=== PATIENT | female | born 1955 | race Caucasian/White ===

== ENCOUNTER 2016-08-06 13:51 | Inpatient (IN) | payer MEDICARE, MEDICAID ==
[2016-08-06] VITALS (14 sets, daily range): BP systolic 124–175; BP diastolic 59–83; PULSE 54–70; RESP 14–23; TEMP 98.5; O2SAT 97–100
[~2016-08-06] VITALS: Ht 167.6 cm; Wt 52.9 kg
[~2016-08-06 13:51] MED LIST: ASPI81TA11 PO; ATOR1TAB18 PO; CITA40TA4 PO; COLA100C3 PO; DILA100C PO; DONE10TA7 PO; FOLI1TAB4 PO; LACO100 PO; LEVE10003 PO; LISI-515 PO; METO50TA PO; PROT40TA PO; SPIRCAP INH; TOPA50TA7 PO; TRAZ100T4 PO; VENTAER INH; VITA10006 PO
[2016-08-06] MEDS ORDERED: SODIUM CHLOR 0.9% 1000 ML INJ 1,000 ML IV ONE (14:00)
[2016-08-06] MEDS ORDERED: LORazepam 2 MG/ML VIAL IV PUSH ONE (14:00)
[2016-08-06] MEDS ORDERED: levETIRAcetam INJ 1,000 MG in SODIUM CHLORIDE 0.9% INJ 100 ML IV ONE (14:00)
--- NOTE | 2016-08-06 14:15 | RADRPT ---
EXAM DATE/TIME: 08/06/2016 14:02 [facility] COMPARISON: CT BRAIN W/O CONTRAST, June 23, 2016, 10:27. INDICATIONS : Left side flacid, seizure RADIATION DOSE: 56.35 CTDIvol (mGy) This report was called to Dr. Colbert at 1413. MEDICAL HISTORY : Cardiovascular disease. Cerebrovascular disease. Hypertension. SURGICAL HISTORY : Tubal ligation. ENCOUNTER: Initial ACUITY: 1 day PAIN SCALE: Non-responsive LOCATION: cranial TECHNIQUE: Multiple contiguous axial images were obtained of the head. Using automated exposure control and adj ustment of the mA and/or kV according to patient size, radiation dose was kept as low as reasonably a chievable to obtain optimal diagnostic quality images. FINDINGS: CEREBRUM: The ventricles are normal for age. No evidence of midline shift, mass lesion, hemorrhage or acute in farction. No extra-axial fluid collections are seen. POSTERIOR FOSSA: The cerebellum and brainstem are intact. The 4th ventricle is midline. The cerebellopontine angle i s unremarkable. EXTRACRANIAL: The visualized portion of the orbits is intact. SKULL: The calvaria is intact. No evidence of skull fracture. CONCLUSION: No acute disease. Jerrell Jacome MD FACR on August 06, 2016 at 14:12 Board Certified Radiologist. This report was verified electronically.
[2016-08-06 14:16] LABS: I-STAT POTASSIUM 4.5 MMOL/L (3.5-4.9); I-STAT SODIUM 129 MMOL/L (138-146)
[2016-08-06 14:17] LABS: AUTOMATED NEUTROPHIL # 2.7 TH/MM3 (1.8-7.7); BASOPHIL # 0.1 TH/MM3 (0-0.2); BASOPHIL % 1.2 % (0.0-2.0); EOSINOPHIL # 0.1 TH/MM3 (0-0.4); EOSINOPHIL % 1.2 % (0.0-4.0); HEMATOCRIT 38.5 % (35.0-46.0); HEMO FLAGS DIFF FINAL; LYMPH % 23.2 % (9.0-44.0); MEAN CELL VOLUME 91.4 FL (80.0-100.0); MEAN CORPUSCULAR HGB CONC 33.9 % (32.0-36.0); MONO % 10.8 % (0.0-8.0); NEUT % 63.6 % (16.0-70.0); PLATELET COUNT 179 TH/MM3 (150-450); RED BLOOD COUNT 4.22 MIL/MM3 (4.00-5.30); RED CELL DISTRIBUTION WIDTH 13.2 % (11.6-17.2); WHITE BLOOD COUNT 4.3 TH/MM3 (4.0-11.0)
[2016-08-06 14:27] LABS: APTT (PATIENT) 26.5 SEC (24.3-30.1); INTERNATIONAL NORMALIZED RATIO 1.1 RATIO; PROTHROMBIN TIME - PATIENT 11.7 SEC (9.8-11.6)
[2016-08-06] MEDS ORDERED: levETIRAcetam 1000 MG INJ 100 ML IV ONE (14:30)
--- NOTE | 2016-08-06 14:40 | PD ---
HPI Chief Complaint: Stroke Alert Time Seen by Provider: 14:00 Travel History International Travel<30 days: No Contact w/Intl Traveler<30days: No Traveled to known affect area: No History of Present Illness HPI This 60 year-old woman presents to the emergency department brought in by EMS as a stroke alert. EMS was called at [facility], where the patient resides , for seizure-like activity. She was given 2 mg of Ativan parenterally. Following the seizure, patient initially was obtunded, then gradually responsive and they noted that the patient was not moving her left side. Stroke alert was called. Patient was last seen normal prior to the seizure at 1 :15 PM. Review of records shows that she has a history of major depression, alcohol use , TMJ, history of CVA with short term memory loss, and seizures for which she takes Keppra and phenytoin and Vimpat. PFSH Past Medical History Narrative Medical Seizures, on Keppra, phenytoin, Vimpat Major depression Alcohol use TMJ History of CVA with short term memory loss Hx Anticoagulant Therapy: Yes (325MG ASA DAILY) Arthritis: Yes Asthma: No Autoimmune Disease: No Bipolar Disorder: Yes Anxiety: No Depression: Yes Heart Rhythm Problems: No Cancer: No Cardiovascular Problems: Yes (HTN ) High Cholesterol: Yes Chemotherapy: No Chest Pain: Yes Congestive Heart Failure: No COPD: No Cerebrovascular Accident: Yes Diabetes: No Diminished Hearing: Yes Endocrine: No Gastrointestinal Disorders: Yes (IBS) GERD: No Glaucoma: No Genitourinary: No Headaches: Yes (once a week) Hepatitis: No Hiatal Hernia: No Hypertension: Yes Immune Disorder: No Implanted Vascular Access Dvce: No Kidney Stones: No Musculoskeletal: Yes Neurologic: Yes (SHORT TERM MEMORY LOSS ) Psychiatric: Yes Reproductive: No Respiratory: Yes Migraines: No Myocardial Infarction: No Radiation Therapy: No Renal Failure: No Schizophrenia: Yes (SCHIZOAFFECTIVE) Seizures: Yes (EPILEPSY) Sickle Cell Disease: No Sleep Apnea: No Thyroid Disease: No Ulcer: No PNEUMOCCOCAL Vaccine (Year): 2 Menopausal: Yes : 0 Tubal Ligation: Yes Past Surgical History Abdominal Surgery: No AICD: No Appendectomy: No Arteriovenous Shunt: No Cardiac Surgery: No Cholecystectomy: No Ear Surgery: Yes (bilateral) Endocrine Surgery: No Eye Surgery: No Genitourinary Surgery: No Gynecologic Surgery: Yes (tubal ligation) Hysterectomy: No Insulin Pump: No Joint Replacement: No Neurologic Surgery: No Oral Surgery: Yes (Jaw/ TMJ) Pacemaker: No Thoracic Surgery: No Other Surgery: Yes (see below) Social History Alcohol Use: No (ETOH ABUSE) Tobacco Use: Yes (1 ppd) Substance Use: No (HX CRACK COCAINE USE ) Allergies-Medications (Allergen,Severity, Reaction): Coded Allergies: No Known Allergies (Verified , 08/06/16) Reported Meds & Prescriptions Reported Meds & Active Scripts Active Topamax (Topiramate) 50 Mg Tab 50 Mg PO BID Reported Symbicort Inh (Budesonide/Formoterol Fumarate) 160-4.5 Mcg/Act Aero 2 Puff INH BID Phenytoin Extended 200 Mg Cap 200 Mg PO BID Folate (Folic Acid) 1 Mg Tab 1 Mg PO DAILY Vitamin E 1,000 Unit Cap 1,000 Units PO DAILY Vimpat (Lacosamide) 100 Mg Tab 100 Mg PO TID Ventolin Hfa 18 GM Inh (Albuterol Sulfate) 90 Mcg/Act Aer 2 Puff INH QID Trazodone (Trazodone HCl) 100 Mg Tab 200 Mg PO HS Spiriva Handihaler (Tiotropium Inh) 18 Mcg Cap 1 Cap INH DAILY DO NOT SWALLOW CAPS Protonix (Pantoprazole Sodium) 40 Mg Tab 40 Mg PO DAILY Metoprolol Tartrate 50 Mg Tab 50 Mg PO BID Lisinopril 20 Mg Tab 20 Mg PO DAILY Levetiracetam 1,000 Mg Tab 1,000 Mg PO TID Donepezil 10 Mg Tab 10 Mg PO BID Colace (Docusate Sodium) 100 Mg Cap 100 Mg PO BID Citalopram (Citalopram Hydrobromide) 40 Mg Tab 40 Mg PO DAILY Atorvastatin (Atorvastatin Calcium) 80 Mg Tab 80 Mg PO HS Aspirin EC (Aspirin) 81 Mg Tabdr 81 Mg PO DAILY Review of Systems Except as stated in HPI: all other systems reviewed are Neg Physical Exam Narrative GENERAL: 60 year-old woman, unresponsive. SKIN: Warm and dry. HEAD: Atraumatic. Normocephalic. EYES: Pupils equal and round. Patient has right beating irregular eye movements. ENT: No nasal bleeding or discharge. Mucous membranes pink and moist. NECK: Trachea midline. No JVD. CARDIOVASCULAR: Regular rate and rhythm. No murmur appreciated. RESPIRATORY: No accessory muscle use. Clear to auscultation. Breath sounds equal bilaterally. GASTROINTESTINAL: Abdomen soft, non-tender, nondistended. Hepatic and splenic margins not palpable. MUSCULOSKELETAL: No obvious deformities. No edema. NEUROLOGICAL: Eyes closed. No response to voice. Is somewhat purposeful the right upper extremity which are all from pain in the right lower extremity. Left leg we will pull away some the pain. Left upper extremity is flaccid. She appears to have sensation in the left upper extremity grimaces with noxious stimuli to the left upper extremity. Data Data Last Documented VS Vital Signs Date Time Temp Pulse Resp B/P Pulse Ox O2 Delivery O2 Flow Rate FiO2 08/06/16 14:40 61 18 147/64 100 Non-Rebreather 08/06/16 13:54 98.5 08/06/16 13:50 12.00 100 Orders Activity Bed Rest (08/06/16 ) Electrocardiogram (08/06/16 ) I-Stat Creatinine (08/06/16 14:00) I-Stat Profile (08/06/16 14:00) Prothrombin Time / Inr (Pt) (08/06/16 14:00) Act Partial Throm Time (Ptt) (08/06/16 14:00) Complete Blood Count With Diff (08/06/16 14:00) Fibrinogen (08/06/16 14:00) Creatine Kinase (Cpk) (08/06/16 14:00) Troponin I (08/06/16 14:00) Ua Includes Microscopic (08/06/16 14:00) Drug Screen, Random Urine (08/06/16 14:00) Type And Screen (08/06/16 14:00) Ct Brain W/O Iv Contrast(Rout) (08/06/16 ) Beta Hcg (Quant/Titer) (08/06/16 14:00) Consult Neurology (08/06/16 ) Blood Glucose (08/06/16 14:00) Ecg Monitoring (08/06/16 14:00) Neuro Checks Q2HX12,Q4H (08/06/16 14:00) Nursing Bedside Swallow Assess .ONCE (08/06/16 14:00) Iv Access Insert/Monitor (08/06/16 14:00) NPO (08/06/16 14:00) Oximetry (08/06/16 14:00) Oxygen Administration (08/06/16 14:00) Sodium Chlor 0.9% 1000 Ml Inj (Ns 1000 M (08/06/16 14:00) Resp Oxygen Arnaldo C Titrat 1-4 L (08/06/16 14:00) Cath For Specimen (08/06/16 14:00) Lorazepam Inj (Ativan Inj) (08/06/16 14:00) (Hub Use Only)Inp Phy Cons/Ref (08/06/16 ) Levetiracetam 1000 Mg Inj (Keppra 1000 M (08/06/16 14:30) Phenytoin (Dilantin) (08/06/16 14:25) Portable Eeg (08/06/16 ) Mri Brain W/O Contrast (08/06/16 ) Admit To Inpatient (08/06/16 ) Vital Signs (Adult) Q4H (08/06/16 16:03) Neuro Checks Q4H (08/06/16 16:03) Activity Oob With Assistance (08/06/16 16:03) Diet Npo (08/06/16 Dinner) Sodium Chlor 0.9% 1000 Ml Inj (Ns 1000 M (08/06/16 16:03) Sodium Chloride 0.9% Flush (Ns Flush) (08/06/16 16:15) Sodium Chloride 0.9% Flush (Ns Flush) (08/06/16 21:00) Acetaminophen (Tylenol) (08/06/16 16:15) Ondansetron Inj (Zofran Inj) (08/06/16 16:15) Bisacodyl Supp (Dulcolax Supp) (08/06/16 16:15) Magnesium Hydroxide Liq (Milk Of Magnesi (08/06/16 16:15) Basic Metabolic Panel (Bmp) (08/07/16 06:00) Complete Blood Count With Diff (08/07/16 06:00) Resp Oxygen Arnaldo C Titrat 1-4 L (08/06/16 ) Pt Request For Service (08/06/16 16:03) Ot Request For Service (08/06/16 16:03) St Request For Service (08/06/16 16:03) Naloxone Inj (Narcan Inj) (08/06/16 16:15) Inpatient Certification (08/06/16 ) Aspirin Ec (Ecotrin Ec) (08/07/16 09:00) Atorvastatin (Lipitor) (08/06/16 21:00) Budeson-Formot 160-4.5 Mg Inh (Symbicort (08/06/16 21:00) Citalopram (Celexa) (08/07/16 09:00) Donepezil (Aricept) (08/06/16 21:00) Folic Acid (Folate) (08/07/16 09:00) Lacosamide (Vimpat) (08/06/16 18:00) Levetiracetam (Keppra) (08/06/16 18:00) Lisinopril (Prinivil) (08/07/16 09:00) Metoprolol Tartrate (Lopressor) (08/06/16 21:00) Pantoprazole (Protonix) (08/07/16 09:00) Phenytoin (Dilantin) (08/06/16 21:00) Topiramate (Topamax) (08/06/16 21:00) Trazodone (Desyrel) (08/06/16 21:00) Admit Order (Ed Use Only) (08/06/16 ) Labs Laboratory Tests Test 08/06/16 08/06/16 14:00 14:20 White Blood Count 4.3 TH/MM3 Red Blood Count 4.22 MIL/MM3 Hemoglobin 13.1 GM/DL Bedside Hemoglobin 13.3 G/DL Hematocrit 38.5 % Bedside Hematocrit 39.0 % Mean Corpuscular Volume 91.4 FL Mean Corpuscular Hemoglobin 31.0 PG Mean Corpuscular Hemoglobin 33.9 % Concent Red Cell Distribution Width 13.2 % Platelet Count 179 TH/MM3 Mean Platelet Volume 8.0 FL Neutrophils (%) (Auto) 63.6 % Lymphocytes (%) (Auto) 23.2 % Monocytes (%) (Auto) 10.8 % Eosinophils (%) (Auto) 1.2 % Basophils (%) (Auto) 1.2 % Neutrophils # (Auto) 2.7 TH/MM3 Lymphocytes # (Auto) 1.0 TH/MM3 Monocytes # (Auto) 0.5 TH/MM3 Eosinophils # (Auto) 0.1 TH/MM3 Basophils # (Auto) 0.1 TH/MM3 CBC Comment DIFF FINAL Differential Comment Prothrombin Time 11.7 SEC Prothromb Time International 1.1 RATIO Ratio Activated Partial 26.5 SEC Thromboplast Time Fibrinogen 159 mg/dL Bedside Sodium 129 MMOL/L Bedside Potassium 4.5 MMOL/L Bedside Chloride 94 MMOL/L Bedside Blood Urea Nitrogen 9 MG/DL Bedside Creatinine 0.8 MG/DL Bedside Glucose 97 MG/DL Total Creatine Kinase 121 U/L Troponin I LESS THAN 0.02 NG/ML Human Chorionic Gonadotropin, 2 MIU/ML Quant Phenytoin (Dilantin) Level 16.8 MCG/ML Blood Type A POSITIVE Antibody Screen NEGATIVE Urine Color YELLOW Urine Turbidity CLEAR Urine pH 6.5 Urine Specific [place] 1.010 Urine Protein NEG mg/dL Urine Glucose (UA) NEG mg/dL Urine Ketones NEG mg/dL Urine Occult Blood NEG Urine Nitrite NEG Urine Bilirubin NEG Urine Urobilinogen LESS THAN 2.0 MG/DL Urine Leukocyte Esterase NEG Urine RBC LESS THAN 1 /hpf Urine WBC LESS THAN 1 /hpf Microscopic Urinalysis Comment Urine Opiates Screen NEG Urine Barbiturates Screen NEG Urine Amphetamines Screen NEG Urine Benzodiazepines Screen NEG Urine Cocaine Screen POS Urine Cannabinoids Screen NEG MDM Medical Screen Exam Complete: Yes Emergency Medical Condition: Yes Differential Diagnosis Seizure, CVA, bleed, tumor, adverse effect of illicit drugs, other Narrative Course Medical decision making INITIAL: This 60 year-old woman presents emergency department with appears to be status epilepticus. She still has intermittent seizure-like eye movements, but no clear convulsions. She is flaccid on the left side. Suspect status epilepticus. Patient was called as a stroke or base of his left sided weakness. Spoke with Dr. nicholas oliveira. I don't think she is a candidate for TPA. folds in agreement. We'll give an extra dose of Keppra, continue monitoring. EEG. Admission to the hospital. Stroke Alert NIHSS NIH Stroke Scale Result: 16 NIHSS Time Completed: 14:00 Procedures Interpretation(s) LABS: CBC unremarkable. POC unremarkable Troponin negative HCG negative Coags unremarkable UA negative Urine drug screen positive for cocaine Mayito More MD Aug 06, 2016 14:40
[2016-08-06 14:43] LABS: BETA HCG QUANT 2 MIU/ML (0-5); CREATINE KINASE 121 U/L (26-192)
[2016-08-06] MEDS ORDERED: PHEN200C3 PO (15:27)
[2016-08-06] MEDS ORDERED: SYMB160A INH (15:30)
--- NOTE | 2016-08-06 15:34 | MB ---
cc: FIDEL MAGANA M.D. DATE OF CONSULTATION: 08/06/2016 DATE OF : 1955 REASON FOR CONSULTATION Seizure, questionable stroke. HISTORY OF PRESENT ILLNESS The patient came in as a Stroke Alert and noted to be seizing upon arrival, was given two of Ativan I believe in the field and two in the ED, total of four, on the non-rebreather. Currently still having some seizure-like activity with a history of epilepsy, schizoaffective disorder, stroke with some visual right-sided weakness, hypertension, hyperlipidemia and COPD. The patient per old chart should be on Dilantin as well as Keppra. Labs are still pending. The patient resides at [facility] and was noted there to have possible seizure. They noted that she was not moving her left side and that is white a Stroke Alert was called. It looks more like a Lv's paralysis than a stroke. PAST MEDICAL HISTORY As stated. MEDICATIONS Home medicines are noted per chart: 1. Topamax 50 mg b.i.d. 2. Dilantin 100 mg caps, 200 mg daily. 3. Vimpat, looks like 100 mg three times a day. 4. Aricept. 5. Citalopram. 6. Atorvastatin. 7. Aspirin. 8. Metoprolol. 9. Lisinopril. 10.Keppra 1000 mg three times a day. PHYSICAL EXAMINATION VITAL SIGNS: Temperature 98.5, pulse 61, respiratory rate 18, blood pressure 147/64. Satting 100% on non-rebreather. NEUROLOGIC: She is not alert. Pupils are reactive. She does have some nystagmus. No gaze deviation. Has her neck arched. Motor-dye she withdraws right arm, right leg, left leg, not doing as much with the left arm, cannot get her to do anything at this point. Gait and cerebellar cannot be assessed. LABORATORY Labs are reviewed. CBC is unremarkable. Coag panel, fibrinogen 159, PT 11.7. Chemistries, sodium 129, glucose 97. IMAGING Head CT: No acute disease noted. IMPRESSION Likely breakthrough seizure in this 60-year-old woman with a history of stroke in the past, history of epilepsy, hypertension, hyperlipidemia and COPD. RECOMMENDATIONS Recommend continuing her antiepileptics from the detention. The list needs to be addressed carefully to make sure that she is in fact getting all her medication. I would also order levels of Keppra and Dilantin if she is truly on Vimpat as well as topiramate. Those levels can be ordered but they will take some time to come back. Will get an EEG. Maintain seizure precautions. I think given that there is some confusion from the detention MRI of the brain should be addressed and performed to make sure there is not a small infarct contributing to the breakthrough seizures. If there is, then further workup will be done. At this point she is not a TPA candidate. I believe that these are seizures, not causing some paralysis. Further recommendations to be made. MD OSMEL Bobo/RODRIGO /2:44 PM /3:17 PM
[2016-08-06] MEDS ORDERED: NALOXONE HCL 0.4 MG/ML AMP IV PRN (16:15)
[2016-08-06] MEDS ORDERED: ONDANSETRON HCL 4 MG/2 ML VIAL IVP PRN (16:15)
[2016-08-06] MEDS ORDERED: SODIUM CHLORIDE 0.9% FLUSH 5 ML FLUSH FLUSH PRN (16:15)
[2016-08-06] MEDS ORDERED: MAGNESIUM HYDROXIDE SUSP 30 ML CUP PO PRN (16:15)
[2016-08-06] MEDS ORDERED: BISACODYL 10 MG SUPP PR PRN (16:15)
[2016-08-06] MEDS ORDERED: ACETAMINOPHEN 325 MG TAB PO PRN (16:15)
[2016-08-06 16:19] LABS: BLOOD, URINE NEG (NEG); GLUCOSE,URINE NEG (NEG); KETONE, URINE NEG (NEG); NITRITE,URINE NEG (NEG); PH, URINE 6.5 (5.0-8.5); URINE COLOR YELLOW (YELLW/STRAW)
[2016-08-06 16:25] LABS: AMPHETAMINE, URINE NEG (NEG); BARBITURATES, URINE NEG (NEG); COCAINE, URINE POS (NEG)
[2016-08-06] MEDS: levETIRAcetam 500 MG TAB PO SCH (18:00)
[2016-08-06] MEDS: LACOSAMIDE 100 MG TAB PO SCH (18:00)
[2016-08-06] MEDS: SODIUM CHLOR 0.9% 1000 ML INJ 1,000 ML IV SCH (18:27)
--- NOTE | 2016-08-06 20:44 | RADRPT ---
EXAM DATE/TIME: 08/06/2016 19:38 [facility] COMPARISON: No previous studies available for comparison. INDICATIONS : Seizures. Left side flaccid. MEDICAL HISTORY : Stroke Seizures. Chronic obstructive pulmonary disease. SURGICAL HISTORY : Tubal ligation. TMJ surgery. ENCOUNTER: Initial ACUITY: 1 day PAIN SCORE: Nonresponsive. LOCATION: head TECHNIQUE: Multiplanar, multisequence MRI of the brain was performed without contrast. FINDINGS: CEREBRUM: The ventricles are normal for age. No evidence of midline shift, mass lesion, hemorrhage or acute in farction. No extraaxial fluid collections are seen. The pituitary gland and suprasellar cistern are normal in configuration. WHITE MATTER: No significant signal abnormalities are seen in the white matter. POSTERIOR FOSSA: The cerebellum and brainstem are intact. The 4th ventricle is midline. The cerebellopontine angle is unremarkable. The cerebellar tonsils are normal in position. DIFFUSION IMAGING: No focal areas of restricted diffusion are seen. No evidence of acute infarction. EXTRACRANIAL: The visualized portions of the orbits and paranasal sinuses are unremarkable. CONCLUSION: 1. No acute findings. No significant change since 2014. No recent infarct. Ventricular size relativel y stable. Prasanna Cooper MD on August 06, 2016 at 20:39 Board Certified Radiologist. This report was verified electronically.
[2016-08-06] MEDS: SODIUM CHLORIDE 0.9% FLUSH 5 ML FLUSH FLUSH SCH (21:01)
[2016-08-06] MEDS: ATORVASTATIN 80 MG TAB PO SCH (21:10)
[2016-08-06] MEDS: TOPIRAMATE 25 MG TAB PO SCH (21:10)
[2016-08-06] MEDS: METOPROLOL TARTRATE 50 MG TAB PO SCH (21:10)
[2016-08-06] MEDS: PHENYTOIN SODIUM 100 MG CAP PO SCH (21:10)
[2016-08-06] MEDS: traZODone HCL 100 MG TAB PO SCH (21:58)
[2016-08-06] MEDS: DONEPEZIL HCL 5 MG TAB PO SCH (21:58)
[2016-08-06] MEDS: BUDESONIDE-FORMOTEROL 160/4.5 MCG INHALER INH SCH (21:58)
[2016-08-06] MEDS ORDERED: RESP: ALBUTEROL 2.5 MG/IPRATROPIUM 0.5 MG NEB (PRN) NEB (22:45)
[2016-08-07] VITALS (11 sets, daily range): BP systolic 108–163; BP diastolic 55–89; PULSE 52–86; RESP 16–20; TEMP 97.5–97.8; O2SAT 95–99
[2016-08-07] MEDS: SODIUM CHLOR 0.9% 1000 ML INJ 1,000 ML IV SCH ×3 (02:41→22:22)
[2016-08-07 04:57] LABS: AUTOMATED NEUTROPHIL # 5.3 TH/MM3 (1.8-7.7); BASOPHIL # 0.1 TH/MM3 (0-0.2); BASOPHIL % 0.7 % (0.0-2.0); EOSINOPHIL # 0.1 TH/MM3 (0-0.4); HEMATOCRIT 43.3 % (35.0-46.0); HEMO FLAGS DIFF FINAL; LYMPHOCYTE # 1.1 TH/MM3 (1.0-4.8); MEAN CELL VOLUME 91.8 FL (80.0-100.0); MEAN CORPUSCULAR HEMOGLOBIN 31.6 PG (27.0-34.0); MEAN CORPUSCULAR HGB CONC 34.5 % (32.0-36.0); MONO % 10.4 % (0.0-8.0); NEUT % 72.9 % (16.0-70.0); PLATELET COUNT 167 TH/MM3 (150-450); RED BLOOD COUNT 4.72 MIL/MM3 (4.00-5.30); RED CELL DISTRIBUTION WIDTH 13.5 % (11.6-17.2); WHITE BLOOD COUNT 7.3 TH/MM3 (4.0-11.0)
--- NOTE | 2016-08-07 05:12 | HHI.HP ---
[facility] No Primary Care Physician Admission Diagnosis status epilepticus Diagnoses: (1) Recurrent seizures (2) Hyponatremia (3) HTN (hypertension) (4) Hyperlipidemia (5) COPD (chronic obstructive pulmonary disease) Chief Complaint: Breakthrough seizures Travel History International Travel<30 Days: No Contact w/Intl Traveler <30 Da: No Traveled to Known Affected Are: No History of Present Illness Ms. Hernandez is a 60 -year-old female with a past medical history of seizure disorder, hypertension, myocardial infarction, hyperlipidemia, hypertension, COPD, irritable bowel syndrome, arthritis, schizoaffective bipolar disorder, tobacco abuse, alcohol abuse, and history of crack cocaine abuse who presented to the emergency room on 08/06/2016 from [facility] for evaluation of seizure-like activity. Following the seizure, the patient was unable to move her left side and a stroke alert was called. She has been seen and evaluated by Dr. Zamora who opines that the paralysis appears more like a Todds paralysis resulting from seizure activity more than a CVA. Urine drug screen positive for cocaine. Dilantin level was therapeutic at 16.8. The patient is seen in ED holding. She reports that she came to the hospital because of seizure activity but cannot recall much else. She reports taking all of her medications at the [facility] where she lives. She denies cocaine use despite positive urine drug screen. . Review of Systems Constitutional: DENIES: Fever Respiratory: DENIES: Cough, Shortness of breath Cardiovascular: DENIES: Chest pain, Palpitations Gastrointestinal: DENIES: Abdominal pain, Black stools, Bloody stools, Diarrhea , Nausea, Vomiting Genitourinary: DENIES: Hematuria, Dysuria Neurologic: COMPLAINS OF: Seizures Past Family Social History Past Medical History Seizure disorder Hypertension Myocardial infarction Hyperlipidemia Hypertension COPD Irritable bowel syndrome Arthritis Schizoaffective bipolar disorder Tobacco abuse Alcohol abuse History of crack cocaine abuse . Past Surgical History Bilateral ear surgery Tubal ligation TMJ surgery . Reported Medications Reported Meds & Active Scripts Active Topamax (Topiramate) 50 Mg Tab 50 Mg PO BID Reported Symbicort Inh (Budesonide/Formoterol Fumarate) 160-4.5 Mcg/Act Aero 2 Puff INH BID Phenytoin Extended 200 Mg Cap 200 Mg PO BID Folate (Folic Acid) 1 Mg Tab 1 Mg PO DAILY Vitamin E 1,000 Unit Cap 1,000 Units PO DAILY Vimpat (Lacosamide) 100 Mg Tab 100 Mg PO TID Ventolin Hfa 18 GM Inh (Albuterol Sulfate) 90 Mcg/Act Aer 2 Puff INH QID Trazodone (Trazodone HCl) 100 Mg Tab 200 Mg PO HS Spiriva Handihaler (Tiotropium Inh) 18 Mcg Cap 1 Cap INH DAILY DO NOT SWALLOW CAPS Protonix (Pantoprazole Sodium) 40 Mg Tab 40 Mg PO DAILY Metoprolol Tartrate 50 Mg Tab 50 Mg PO BID Lisinopril 20 Mg Tab 20 Mg PO DAILY Levetiracetam 1,000 Mg Tab 1,000 Mg PO TID Donepezil 10 Mg Tab 10 Mg PO BID Colace (Docusate Sodium) 100 Mg Cap 100 Mg PO BID Citalopram (Citalopram Hydrobromide) 40 Mg Tab 40 Mg PO DAILY Atorvastatin (Atorvastatin Calcium) 80 Mg Tab 80 Mg PO HS Aspirin EC (Aspirin) 81 Mg Tabdr 81 Mg PO DAILY . Allergies: Coded Allergies: No Known Allergies (Verified , 08/06/16) Active Ordered Medications Current Medications Sodium Chloride (NS 1000 ml Inj) 1,000 ml @ 70 mls/hr [id number] ONCE IV Last administered on 08/06/16 15:32; Start 08/06/16 at 14:00; Stop 08/07/16 at 04:17; Status DC Lorazepam 2 mg 2 mg ONCE ONCE IV PUSH Last administered on 08/06/16 14:42; Start 08/06/16 at 14:00; Stop 08/06/16 at 14:02; Status DC Levetriacetam 1000 mg/Sodium Chloride 110 ml @ 420 mls/hr BOLUS ONCE IV ; Start 08/06/16 at 14:00; Stop 08/06/16 at 14:15; Status Cancel Levetriacetam 100 ml @ 420 mls/hr BOLUS ONCE IV Last administered on 15:32; Start 08/06/16 at 14:30; Stop 08/06/16 at 14:44; Status DC Sodium Chloride (NS 1000 ml Inj) 1,000 ml @ 100 mls/hr Q10H IV Last administered on 08/07/16 02:41; Start 08/06/16 at 16:03 IV Flush (NS Flush) 2 ml UNSCH PRN FLUSH FLUSH AFTER USING IV ACCESS; Start 08/06/16 at 16:15 IV Flush (NS Flush) 2 ml BID FLUSH Last administered on 08/06/16 21:01; Start 08/06/16 at 21:00 Acetaminophen (Tylenol) 650 mg Q4H PRN PO Pain 1-4, Fever, headache; Start 08/06 at 16:15 Ondansetron HCl (Zofran Inj) 4 mg Q6H PRN IVP NAUSEA OR VOMITING; Start at 16:15 Bisacodyl (Dulcolax Supp) 10 mg DAILY PRN NC CONSTIPATION; Start 08/06/16 at 16: 15 Magnesium Hydroxide (Milk Of Magndanielle Liq) 30 ml Q12H PRN PO CONSTIPATION; Start 08/06/16 at 16:15 Naloxone HCl (Narcan Inj) 0.4 mg UNSCH PRN IV SEE LABEL COMMENTS; Start at 16:15 Aspirin (Ecotrin Ec) 81 mg DAILY PO ; Start 08/07/16 at 09:00 Atorvastatin Calcium (Lipitor) 80 mg HS PO Last administered on 08/06/16 21:10 ; Start 08/06/16 at 21:00 Budesonide/ Formoterol Fumarate (Symbicort 160-4.5 Inh) 2 puff BID INH Last administered on 08/06/16 21:58; Start 08/06/16 at 21:00 Citalopram Hydrobromide (CeleXA) 40 mg DAILY PO ; Start 08/07/16 at 09:00 Donepezil HCl (Aricept) 10 mg BID PO Last administered on 08/06/16 21:58; Start 08/06/16 at 21:00 Folic Acid (Folate) 1 mg DAILY PO ; Start 08/07/16 at 09:00 Lacosamide (Vimpat) 100 mg TID PO ; Start 08/06/16 at 18:00 Levetriacetam (Keppra) 1,000 mg TID PO ; Start 08/06/16 at 18:00 Lisinopril (Prinivil) 20 mg DAILY PO ; Start 08/07/16 at 09:00 Metoprolol Tartrate (Lopressor) 50 mg BID PO Last administered on 08/06/16 21: 10; Start 08/06/16 at 21:00 Pantoprazole Sodium (Protonix) 40 mg DAILY PO ; Start 08/07/16 at 09:00 Phenytoin (Dilantin) 200 mg BID PO Last administered on 08/06/16 21:10; Start 08/06/16 at 21:00 Topiramate (Topamax) 50 mg BID PO Last administered on 08/06/16 21:10; Start at 21:00 Trazodone HCl (Desyrel) 200 mg HS PO Last administered on 08/06/16 21:58; Start 08/06/16 at 21:00 Non-Formulary Medication 1,000 units DAILY PO Tardive Dyskinesia; Start 08/07/16 at 09:00; Status UNV Albuterol/ Ipratropium (Duoneb Neb) 1 ampule Q4HR NEB PRN NEB shortness of breath/wheezing; Start 08/06/16 at 22:45 . Family History Mother with breast CA, CVA . Social History Tobacco: Smokes 1 pack per day Alcohol: History of alcoholism, quit drinking 5 years ago Illicit Drugs: denies crack cocaine use but urine drug tested positive Physical Exam Vital Signs Vital Signs Date Time Temp Pulse Resp B/P Pulse Ox O2 Delivery O2 Flow Rate FiO2 08/07/16 00:00 52 17 133/68 98 Venturi Mask 6 40 08/06/16 23:00 98 Venturi Mask 6.00 40 08/06/16 22:00 58 17 147/72 97 Venturi Mask 6 40 08/06/16 21:13 70 20 175/81 99 Venturi Mask 6 40 08/06/16 20:00 57 17 173/78 98 Venturi Mask 6 40 08/06/16 19:00 65 20 153/67 99 Venturi Mask 6 40 08/06/16 18:00 54 15 148/67 100 Venturi Mask 40 08/06/16 17:00 54 18 137/65 100 Non-Rebreather 15.00 100 08/06/16 16:00 56 14 124/59 100 Non-Rebreather 15.00 100 08/06/16 15:00 62 16 148/65 100 Non-Rebreather 15.00 100 08/06/16 14:40 61 18 147/64 100 Non-Rebreather 08/06/16 14:38 100 Non-Rebreather 15.00 08/06/16 14:20 100 Non-Rebreather 08/06/16 14:05 69 23 156/83 100 Room Air 08/06/16 13:54 Non-Rebreather 08/06/16 13:54 98.5 66 18 173/81 100 08/06/16 13:54 98.5 66 18 173/81 100 Non-Rebreather 08/06/16 13:50 98 12.00 100 Physical Exam GENERAL: This is a female patient who appears older than her stated age, in no apparent distress. SKIN: No rashes, ecchymoses or lesions. Cool and dry. HEAD: Atraumatic. Normocephalic. EYES: No scleral icterus. No injection or drainage. ENT: Nose without bleeding, purulent drainage. NECK: Trachea midline. No JVD or lymphadenopathy. CARDIOVASCULAR: Regular rate and rhythm without murmurs, gallops, or rubs. RESPIRATORY: Clear to auscultation. Breath sounds equal bilaterally. No wheezes , rales, or rhonchi. GASTROINTESTINAL: Abdomen soft, non-tender, nondistended. No guarding. MUSCULOSKELETAL: Extremities without clubbing, cyanosis, or edema. No calf tenderness. NEUROLOGICAL: Sleeping but easily awakens. Motor and sensory grossly within normal limits. Normal speech. No focal deficits noted. . Laboratory Laboratory Tests Test 08/06/16 08/06/16 08/07/16 14:00 14:20 04:10 White Blood Count 4.3 7.3 Red Blood Count 4.22 4.72 Hemoglobin 13.1 14.9 Bedside Hemoglobin 13.3 Hematocrit 38.5 43.3 Bedside Hematocrit 39.0 Mean Corpuscular Volume 91.4 91.8 Mean Corpuscular Hemoglobin 31.0 31.6 Mean Corpuscular Hemoglobin 33.9 34.5 Concent Red Cell Distribution Width 13.2 13.5 Platelet Count 179 167 Mean Platelet Volume 8.0 8.3 Neutrophils (%) (Auto) 63.6 72.9 Lymphocytes (%) (Auto) 23.2 15.0 Monocytes (%) (Auto) 10.8 10.4 Eosinophils (%) (Auto) 1.2 1.0 Basophils (%) (Auto) 1.2 0.7 Neutrophils # (Auto) 2.7 5.3 Lymphocytes # (Auto) 1.0 1.1 Monocytes # (Auto) 0.5 0.8 Eosinophils # (Auto) 0.1 0.1 Basophils # (Auto) 0.1 0.1 CBC Comment DIFF FINAL DIFF FINAL Differential Comment Prothrombin Time 11.7 Prothromb Time International 1.1 Ratio Activated Partial 26.5 Thromboplast Time Fibrinogen 159 Bedside Sodium 129 Bedside Potassium 4.5 Bedside Chloride 94 Bedside Blood Urea Nitrogen 9 Bedside Creatinine 0.8 Bedside Glucose 97 Total Creatine Kinase 121 Troponin I LESS THAN 0.02 Human Chorionic Gonadotropin, 2 Quant Phenytoin (Dilantin) Level 16.8 Blood Type A POSITIVE Antibody Screen NEGATIVE Urine Color YELLOW Urine Turbidity CLEAR Urine pH 6.5 Urine Specific [place] 1.010 Urine Protein NEG Urine Glucose (UA) NEG Urine Ketones NEG Urine Occult Blood NEG Urine Nitrite NEG Urine Bilirubin NEG Urine Urobilinogen LESS THAN 2.0 Urine Leukocyte Esterase NEG Urine RBC LESS THAN 1 Urine WBC LESS THAN 1 Microscopic Urinalysis Comment Urine Opiates Screen NEG Urine Barbiturates Screen NEG Urine Amphetamines Screen NEG Urine Benzodiazepines Screen NEG Urine Cocaine Screen POS Urine Cannabinoids Screen NEG Result Diagram: 08/07/16 0410 Imaging Last Impressions Head CT 08/06/16 0000 Signed Impressions: Service Date/Time: Saturday, August 06, 2016 14:02 - CONCLUSION: No acute disease. Jerrell Jacome MD FACR Brain MRI 08/06/16 0000 Signed Impressions: Service Date/Time: Saturday, August 06, 2016 19:38 - CONCLUSION: 1. No acute findings. No significant change since 2014. No recent infarct. Ventricular size relatively stable. Prasanna Cooper MD . Assessment and Plan Problem List: (1) Recurrent seizures ICD Code: G40.909 Status: Acute (2) Hyponatremia ICD Code: E87.1 Status: Acute (3) HTN (hypertension) ICD Code: I10 Status: Chronic (4) Hyperlipidemia ICD Code: E78.5 Status: Chronic (5) COPD (chronic obstructive pulmonary disease) ICD Code: J44.9 Status: Chronic Assessment and Plan Epilepsy with breakthrough seizure activity Recurrent seizures despite multi antiepileptic drug regimen - Neurology consulted; appreciate Dr. Lowe assistance - MRI brain without contrast pending - Portable EEG pending - Keppra 1000 mg bolus x 1 given in ER - Continue home antiseizure medications - Neurochecks every 4 hours - Vital signs every 4 hours - PT, OT, ST Hyponatremia - Initial sodium 129 - Replace with normal saline at 100 cc per hour - Repeat BMP in a.m. and follow trends and sodium level Hypertension - Continue home lisinopril and metoprolol - Monitor blood pressure trends and adjust medications as indicated Hyperlipidemia - Continue home atorvastatin COPD - Continue home Symbicort - Duo nebulizers every 4 hours when necessary shortness of breath/wheezing Cocaine Abuse - patient denies use - counseled cessation; discussed positive drug screen; patient continues to deny using cocaine DVT prophylaxis - SCDs Written by Ashtyn Sebastian, acting as scribe for Dr. Girard on 08/07/16 at 05:12. The documentation accurately reflects the work performed [id number] by me on at 0512 Discussed Condition With RN and patient Physician Certification 2 Midnight Certification Type: Admission for Inpatient Services Order for Inpatient Services The services are ordered in accordance with Medicare regulations or non- Medicare payer requirements, as applicable. In the case of services not specified as inpatient-only, they are appropriately provided as inpatient services in accordance with the 2-midnight benchmark. Estimated LOS (days): 3 days is the estimated time the patient will need to remain in the hospital, assuming treatment plan goals are met and no additional complications. Post-Hospital Plan: Not yet determined Ashtyn Sebastian Aug 07, 2016 05:12 Dilshad Girard MD Aug 07, 2016 08:57
[2016-08-07 05:13] LABS: POTASSIUM 4.4 MEQ/L (3.5-5.1)
[2016-08-07] MEDS ORDERED: VITAMIN E 1000 UNIT PO SCH (09:00)
[2016-08-07] MEDS: DONEPEZIL HCL 5 MG TAB PO SCH ×2 (10:06→22:21)
[2016-08-07] MEDS: CITALOPRAM HYDROBROMIDE 40 MG TAB PO SCH (10:06)
[2016-08-07] MEDS: PANTOPRAZOLE SOD 40 MG DELAYED RELEASE TAB PO SCH (10:06)
[2016-08-07] MEDS: PHENYTOIN SODIUM 100 MG CAP PO SCH ×2 (10:06→22:21)
[2016-08-07] MEDS: FOLIC ACID 1 MG TAB PO SCH (10:06)
[2016-08-07] MEDS: LISINOPRIL 20 MG TAB PO SCH (10:06)
[2016-08-07] MEDS: TOPIRAMATE 25 MG TAB PO SCH ×2 (10:07→22:21)
[2016-08-07] MEDS: BUDESONIDE-FORMOTEROL 160/4.5 MCG INHALER INH SCH ×2 (10:07→22:32)
[2016-08-07] MEDS: levETIRAcetam 500 MG TAB PO SCH ×3 (10:07→18:00)
[2016-08-07] MEDS: ASPIRIN EC 81 MG TABEC PO SCH (10:07)
[2016-08-07] MEDS: METOPROLOL TARTRATE 50 MG TAB PO SCH ×3 (10:07→22:37)
[2016-08-07] MEDS: SODIUM CHLORIDE 0.9% FLUSH 5 ML FLUSH FLUSH SCH ×2 (10:08→22:22)
[2016-08-07] MEDS: LACOSAMIDE 100 MG TAB PO SCH ×3 (12:15→18:00)
--- NOTE | 2016-08-07 15:38 | HHI.PR ---
Subjective Remarks awake and alert nad Objective Vital Signs Date Time Temp Pulse Resp B/P Pulse Ox O2 Delivery O2 Flow Rate FiO2 08/07/16 14:35 54 18 163/74 97 Nasal Cannula 2 08/07/16 13:50 54 18 151/67 97 Nasal Cannula 2 08/07/16 11:26 56 16 146/66 98 Nasal Cannula 2 08/07/16 11:25 67 18 98 Nasal Cannula 2 08/07/16 10:05 61 17 145/70 97 Nasal Cannula 2 08/07/16 08:27 95 Nasal Cannula 2.00 08/07/16 04:00 58 18 123/58 98 Venturi Mask 6 40 08/07/16 02:00 56 18 110/57 97 Venturi Mask 6 40 08/07/16 00:00 52 17 133/68 98 Venturi Mask 6 40 08/06/16 23:00 98 Venturi Mask 6.00 40 08/06/16 22:00 58 17 147/72 97 Venturi Mask 6 40 08/06/16 21:13 70 20 175/81 99 Venturi Mask 6 40 08/06/16 20:00 57 17 173/78 98 Venturi Mask 6 40 08/06/16 19:00 65 20 153/67 99 Venturi Mask 6 40 08/06/16 18:00 54 15 148/67 100 Venturi Mask 40 08/06/16 17:00 54 18 137/65 100 Non-Rebreather 15.00 100 08/06/16 16:00 56 14 124/59 100 Non-Rebreather 15.00 100 I/O 08/06/16 08/06/16 08/06/16 08/07/16 08/07/16 08/07/16 07:00 15:00 23:00 07:00 15:00 23:00 Output Total 2600 ml 1650 ml Balance -2600 ml -1650 ml Output Urine Total 2600 ml 1650 ml # Voids 0 0 awake alert follows commands perrla motor intact no weakness Result Diagram: 08/07/16 04108/07/16 0410 Objective Remarks eeg results pending Assessment and Plan Assessment and Plan monty sz cont all current aeds eeg results sz precautions d/c back to [facility] living if stable. Gala Zamora MD Aug 07, 2016 15:38
--- NOTE | 2016-08-07 17:35 | EKG ---
Date Performed: 08/06/2016 Time Performed: 14:17:32 PTAGE: 60 years EKG: Sinus rhythm POSSIBLE LEFT ATRIAL ENLARGEMENT NONSPECIFIC T-WAVE ABNORMALITY Since previous tracing, no significa nt change noted BORDERLINE ECG PREVIOUS TRACING : 06/23/2016 09.56 DOCTOR: Roderick Vazquez Interpretating Date/Time 08/07/2016 17:33:06
[2016-08-07] MEDS: traZODone HCL 100 MG TAB PO SCH (22:21)
[2016-08-07] MEDS: ATORVASTATIN 80 MG TAB PO SCH (22:32)
[2016-08-08] VITALS (7 sets, daily range): BP systolic 106–147; BP diastolic 50–72; PULSE 60–77; RESP 16–21; TEMP 97.2–99.2; O2SAT 93–96
[2016-08-08] MEDS: SODIUM CHLOR 0.9% 1000 ML INJ 1,000 ML IV SCH (08:03)
--- NOTE | 2016-08-08 08:23 | MG ---
cc: TWAN RAMIREZ Lab No: [id number] Date: 08/08/2016 Age: 60 Sex: F Race: Hyperventilation not performed. A 60-year-old woman, seizure-like activity status post Ativan, not moving left side, alcohol use, crack cocaine, Keppra, Vimpat, Topamax, trazodone, Aricept, citalopram. Diffuse 7 Hz slowing is seen sometimes down to 6 Hz. There is some right temporal 5 Hz slowing noted at epoch 18 which stands out as being sharply contoured lasting about 2 seconds and some other slight sharply contoured waves seen over the same head region at epoch 24 and a small phase reversing wave is seen at T4 on epoch 35, some more right rhythmic sharply contoured waves are noted at epoch 42 on the temporal lobe with a definite hemisphere asymmetry, although the patient appears to be in stage II sleep at that time. Photic stimulation was performed without significant posterior driving. Some more rhythmic sharp waves are noted at about 6 Hz at epoch 90 and several more times throughout the recording in sleep. IMPRESSION There appears to be abnormality in the right mid temporal lobe which is epileptiform and could be having short runs of seizure activity there just lasting a second or two. Clinical correlation is needed. A right temporal lobe abnormality should be ruled out. MD DOLORES Lind/GABRIELA /8:01 AM 8:14 AM
[2016-08-08] MEDS: ASPIRIN EC 81 MG TABEC PO SCH (09:00)
[2016-08-08] MEDS: SODIUM CHLORIDE 0.9% FLUSH 5 ML FLUSH FLUSH SCH ×2 (09:00→19:55)
[2016-08-08] MEDS: PHENYTOIN SODIUM 100 MG CAP PO SCH ×2 (09:26→19:54)
[2016-08-08] MEDS: PANTOPRAZOLE SOD 40 MG DELAYED RELEASE TAB PO SCH (09:27)
[2016-08-08] MEDS: LISINOPRIL 20 MG TAB PO SCH (09:27)
[2016-08-08] MEDS: CITALOPRAM HYDROBROMIDE 40 MG TAB PO SCH (09:28)
[2016-08-08] MEDS: TOPIRAMATE 25 MG TAB PO SCH ×2 (09:28→20:54)
[2016-08-08] MEDS: LACOSAMIDE 100 MG TAB PO SCH ×3 (09:29→18:36)
[2016-08-08] MEDS: levETIRAcetam 500 MG TAB PO SCH ×3 (09:29→18:36)
[2016-08-08] MEDS: DONEPEZIL HCL 5 MG TAB PO SCH ×2 (09:30→19:54)
[2016-08-08] MEDS: BUDESONIDE-FORMOTEROL 160/4.5 MCG INHALER INH SCH ×2 (09:30→20:55)
[2016-08-08] MEDS: FOLIC ACID 1 MG TAB PO SCH (09:31)
--- NOTE | 2016-08-08 13:59 | HHI.PR ---
Subjective Remarks Follow-up for seizure activity. Patient is doing well. Denies any chest pain, shortness of breath, fever or chills. No further seizure activity. Objective Vitals Vital Signs Date Time Temp Pulse Resp B/P Pulse Ox O2 Delivery O2 Flow Rate FiO2 08/08/16 13:17 97.2 70 17 147/72 93 08/08/16 12:50 99.2 64 16 142/65 96 08/08/16 10:49 21 08/08/16 08:11 98.0 77 17 147/65 94 08/08/16 04:00 97.8 72 18 106/66 94 08/08/16 00:17 97.3 60 18 133/63 93 08/07/16 20:00 97.5 70 18 108/55 08/07/16 17:00 97.8 63 20 139/70 98 08/07/16 14:35 54 18 163/74 97 Nasal Cannula 2 I/O 08/07/16 08/07/16 08/07/16 08/08/16 08/08/16 08/08/16 07:00 15:00 23:00 07:00 15:00 23:00 Intake Total 240 ml Output Total 1650 ml 800 ml 500 ml Balance -1650 ml -800 ml -260 ml Intake Oral 240 ml Output Urine Total 1650 ml 800 ml 500 ml # Voids 0 1 # Bowel Movements 0 Result Diagram: 08/07/16 0410 08/07/16 0410 Imaging Last Impressions Head CT 08/06/16 0000 Signed Impressions: Service Date/Time: Saturday, August 06, 2016 14:02 - CONCLUSION: No acute disease. Jerrell Jacome MD FACR Brain MRI 08/06/16 0000 Signed Impressions: Service Date/Time: Saturday, August 06, 2016 19:38 - CONCLUSION: 1. No acute findings. No significant change since 2014. No recent infarct. Ventricular size relatively stable. Prasanna Cooper MD Objective Remarks GENERAL: Alert, NAD. SKIN: Warm and dry. HEAD: Normocephalic. EYES: No scleral icterus. No injection or drainage. NECK: Supple, trachea midline. No JVD or lymphadenopathy. CARDIOVASCULAR: Regular rate and rhythm without murmurs, gallops, or rubs. RESPIRATORY: Breath sounds equal bilaterally. No accessory muscle use. GASTROINTESTINAL: Abdomen soft, non-tender, nondistended. MUSCULOSKELETAL: No cyanosis, or edema. BACK: Nontender without obvious deformity. No CVA tenderness. Procedures EEG 08/08/2016 There appears to be abnormality in the right mid temporal lobe which is epileptiform and could be having short runs of seizure activity there just lasting a second or two. Clinical correlation is needed. A right temporal lobe abnormality should be ruled out. A/P Problem List: (1) Recurrent seizures ICD Code: G40.909 Status: Acute (2) Hyponatremia ICD Code: E87.1 Status: Acute (3) HTN (hypertension) ICD Code: I10 Status: Chronic (4) Hyperlipidemia ICD Code: E78.5 Status: Chronic (5) COPD (chronic obstructive pulmonary disease) ICD Code: J44.9 Status: Chronic Assessment and Plan Ms. Hernandez is a 60 year old female who was admitted under stroke alert but later determined to be seizure activity. - Recurrent seizures despite multi antiepileptic drug regimen - Neurology consulted. - Continue Keppra 1000 mg 3 times a day, phenytoin 200 mg twice a day, topiramate 50 mg twice a day - MRI brain without contrast shows no acute findings - EEG indicates epileptiform findings. - Restraints discontinued today. IV fluid discontinued. - Likely discharge back to [facility] on 08/09/2016. - Hyponatremia - Initial sodium 129 --> 137 on 08/07/2016. - Discontinue IV fluid. - Hypertension - Continue home lisinopril and metoprolol - Hyperlipidemia - Continue home atorvastatin - COPD - Continue home Symbicort - Duo nebulizers every 4 hours when necessary shortness of breath/wheezing - Cocaine Abuse - patient denies use - counseled cessation; discussed positive drug screen; patient continues to deny using cocaine Full code. SCDs. Sharad Kay DO Aug 08, 2016 1:59 pm
[2016-08-08] MEDS: METOPROLOL TARTRATE 50 MG TAB PO SCH (19:54)
[2016-08-08] MEDS: ATORVASTATIN 80 MG TAB PO SCH (19:55)
[2016-08-08] MEDS: traZODone HCL 100 MG TAB PO SCH (20:54)
[2016-08-09 04:16] VITALS: BP 139/75; PULSE 69; RESP 18; TEMP 98.7; O2SAT 97
[2016-08-09 08:15] VITALS: BP 160/75; PULSE 59; RESP 20; TEMP 98.1; O2SAT 98
[2016-08-09] MEDS: PHENYTOIN SODIUM 100 MG CAP PO SCH (08:25)
[2016-08-09] MEDS: FOLIC ACID 1 MG TAB PO SCH (08:25)
[2016-08-09] MEDS: LISINOPRIL 20 MG TAB PO SCH (08:26)
[2016-08-09] MEDS: BUDESONIDE-FORMOTEROL 160/4.5 MCG INHALER INH SCH (08:26)
[2016-08-09] MEDS: TOPIRAMATE 25 MG TAB PO SCH (08:26)
[2016-08-09] MEDS: DONEPEZIL HCL 5 MG TAB PO SCH (08:26)
[2016-08-09] MEDS: levETIRAcetam 500 MG TAB PO SCH (08:26)
[2016-08-09] MEDS: LACOSAMIDE 100 MG TAB PO SCH (08:26)
[2016-08-09] MEDS: ASPIRIN EC 81 MG TABEC PO SCH (08:26)
[2016-08-09] MEDS: PANTOPRAZOLE SOD 40 MG DELAYED RELEASE TAB PO SCH (08:26)
[2016-08-09] MEDS: CITALOPRAM HYDROBROMIDE 40 MG TAB PO SCH (08:26)
[2016-08-09] MEDS: SODIUM CHLORIDE 0.9% FLUSH 5 ML FLUSH FLUSH SCH (08:27)
[2016-08-09] MEDS: METOPROLOL TARTRATE 50 MG TAB PO SCH (08:27)
--- NOTE | 2016-08-09 08:57 | HHI.DS ---
Discharge Summary Admission Date Aug 06, 2016 at 4:35 pm Discharge Date: Aug 09, 2016 Admitting Diagnosis status epilepticus (1) Recurrent seizures ICD Code: G40.909 (2) Hyponatremia ICD Code: E87.1 (3) HTN (hypertension) ICD Code: I10 (4) Hyperlipidemia ICD Code: E78.5 (5) COPD (chronic obstructive pulmonary disease) ICD Code: J44.9 Procedures EEG 08/08/2016 There appears to be abnormality in the right mid temporal lobe which is epileptiform and could be having short runs of seizure activity there just lasting a second or two. Clinical correlation is needed. A right temporal lobe abnormality should be ruled out. Brief History - From Admission Ms. Hernandez is a 60 -year-old female with a past medical history of seizure disorder, hypertension, myocardial infarction, hyperlipidemia, hypertension, COPD, irritable bowel syndrome, arthritis, schizoaffective bipolar disorder, tobacco abuse, alcohol abuse, and history of crack cocaine abuse who presented to the emergency room on 08/06/2016 from [facility] for evaluation of seizure-like activity. Following the seizure, the patient was unable to move her left side and a stroke alert was called. She has been seen and evaluated by Dr. Zamora who opines that the paralysis appears more like a Todds paralysis resulting from seizure activity more than a CVA. Urine drug screen positive for cocaine. Dilantin level was therapeutic at 16.8. The patient is seen in ED holding. She reports that she came to the hospital because of seizure activity but cannot recall much else. She reports taking all of her medications at the [facility] where she lives. She denies cocaine use despite positive urine drug screen. . CBC/BMP: 08/07/16 0410 08/07/16 0410 Significant Findings Laboratory Tests Test 08/06/16 08/06/16 08/07/16 14:00 14:20 04:10 Monocytes (%) (Auto) 10.8 % 10.4 % (0.0-8.0) (0.0-8.0) Prothrombin Time 11.7 SEC (9.8-11.6) Fibrinogen 159 mg/dL (227-377) Bedside Sodium 129 MMOL/L (138-146) Bedside Chloride 94 MMOL/L (98-109) Bedside Glucose 97 MG/DL (60-95) Troponin I LESS THAN 0.02 NG/ML (0.02-0.05) Urine Cocaine Screen POS (NEG) Neutrophils (%) (Auto) 72.9 % (16.0-70.0) Estimat Glomerular Filtration 68 ML/MIN (>89) Rate Imaging Last Impressions Head CT 08/06/16 0000 Signed Impressions: Service Date/Time: Saturday, August 06, 2016 14:02 - CONCLUSION: No acute disease. Jerrell Jacome MD FACR Brain MRI 08/06/16 0000 Signed Impressions: Service Date/Time: Saturday, August 06, 2016 19:38 - CONCLUSION: 1. No acute findings. No significant change since 2014. No recent infarct. Ventricular size relatively stable. Prasanna Cooper MD PE at Discharge GENERAL: Alert, NAD. SKIN: Warm and dry. HEAD: Normocephalic. EYES: No scleral icterus. No injection or drainage. NECK: Supple, trachea midline. No JVD or lymphadenopathy. CARDIOVASCULAR: Regular rate and rhythm without murmurs, gallops, or rubs. RESPIRATORY: Breath sounds equal bilaterally. No accessory muscle use. GASTROINTESTINAL: Abdomen soft, non-tender, nondistended. MUSCULOSKELETAL: No cyanosis, or edema. BACK: Nontender without obvious deformity. No CVA tenderness. Pt update on day of discharge Ms. Hernandez is doing well. Denies any CP, SOB, fever, chills. No further seizure activity. Hospital Course Ms. Hernandez is a 60 year old female who was admitted under stroke alert but later determined to be seizure activity. - Recurrent seizures despite multi antiepileptic drug regimen - Neurology evaluated patient. - Continue Keppra 1000 mg 3 times a day, phenytoin 200 mg twice a day, topiramate 50 mg twice a day - MRI brain without contrast shows no acute findings - EEG indicates epileptiform findings. - Hyponatremia - Initial sodium 129 --> 137 on 08/07/2016. - Hypertension - Continue home lisinopril and metoprolol - Hyperlipidemia - Continue home atorvastatin - COPD - Continue home Symbicort - Duo nebulizers every 4 hours when necessary shortness of breath/wheezing Pt Condition on Discharge: Good Discharge Disposition: [facility] Discharge Time: > 30 minutes Discharge Instructions DIET: Follow Instructions for: As Tolerated, No Restrictions Speech Therapy-Diet Recommends: Mechanical Soft, Chopped Meat w/Gravy Activities you can perform: Regular-No Restrictions Follow up Referrals: PCP Follow-up - 1 Week Continued Medications: Albuterol 18 GM Inh (Ventolin Hfa 18 GM Inh) 90 Mcg/Act Aer 2 PUFF INH QID SHORTNESS OF BREATH #1 Ref [address] (Aspirin EC) 81 Mg Tabdr 81 MG PO DAILY Ref 0 TAB Atorvastatin (Atorvastatin) 80 Mg Tab 80 MG PO HS Cholesterol Management #30 Ref 0 TAB Budesonide-Formoterol Inh (Symbicort Inh) 160-4.5 Mcg/Act Aero 2 PUFF INH BID #1 Ref 0 INHALER Citalopram (Citalopram) 40 Mg Tab 40 MG PO DAILY Control Depression #30 Ref 0 TAB Docusate Sodium (Colace) 100 Mg Cap 100 MG PO BID Constipation #60 Ref 0 CAP Donepezil (Donepezil) 10 Mg Tab 10 MG PO BID Dementia #30 Ref 0 TAB Folic Acid (Folate) 1 Mg Tab 1 MG PO DAILY Nutritional Supplement Ref 0 TAB Lacosamide (Vimpat) 100 Mg Tab 100 MG PO TID Control Seizures #60 Ref 0 TAB Levetiracetam (Levetiracetam) 1,000 Mg Tab 1000 MG PO TID Control Seizures #90 Ref 0 TAB Lisinopril (Lisinopril) 20 Mg Tab 20 MG PO DAILY #30 Ref 0 TAB Metoprolol Tartrate (Metoprolol Tartrate) 50 Mg Tab 50 MG PO BID #60 Ref 0 TAB Pantoprazole (Protonix) 40 Mg Tab 40 MG PO DAILY Reflux #30 Ref 0 TAB Phenytoin Extended (Phenytoin Extended) 200 Mg Cap 200 MG PO BID Control Seizures #90 Ref 0 CAP Tiotropium Inh (Spiriva Handihaler) 18 Mcg Cap 1 CAP INH DAILY DO NOT SWALLOW CAPS COPD #30 Ref 0 CAP Topiramate (Topamax) 50 Mg Tab 50 MG PO BID Control Seizures #60 Ref 0 TAB Trazodone (Trazodone) 100 Mg Tab 200 MG PO HS Control Depression #30 Ref 0 TAB Vitamin E (Vitamin E) 1,000 Unit Cap 1000 UNITS PO DAILY Tardive Dyskinesia Ref 0 CAP Ahmed,Shahabuddin DO Aug 09, 2016 08:57
== END 2016-08-09 10:49 | DRG 101 ==
LOC: NEPA 13:51 → NEDA 16:35 → NEDH 20:35 → N05B 08-07 15:49 → HCIS 08-08 13:12
PROVIDERS: ADMIT Hospitalist; ATTEND Hospitalist
DX: G40.901 Epilepsy, unspecified, not intractable, with status epilepticus (principal); E87.1 Hypo-osmolality and hyponatremia; G83.84 Todd's paralysis (postepileptic); I10 Essential (primary) hypertension; E78.5 Hyperlipidemia, unspecified; J44.9 Chronic obstructive pulmonary disease, unspecified; I25.2 Old myocardial infarction; K58.9 Irritable bowel syndrome, unspecified; F10.21 Alcohol dependence, in remission; F14.10 Cocaine abuse, uncomplicated; F17.210 Nicotine dependence, cigarettes, uncomplicated; F25.9 Schizoaffective disorder, unspecified; F31.9 Bipolar disorder, unspecified; H91.90 Unspecified hearing loss, unspecified ear; Z86.73 Personal history of transient ischemic attack (TIA), and cerebral infarction without residual deficits
CPT/HCPCS: 70450; 70551; 80048; 80185; 80307; 81001; 82435; 82550; 82565; 82947; 84132; 84295; 84484; 84520; 84702; 85025; 85384; 85610; 85730; 86850; 86900; 86901; 93005; 95819; 96365; 96375; J1953; J2060; J7030; P9612

== ENCOUNTER 2016-10-07 12:14 | Inpatient (IN) | payer MEDICAID, MEDICARE, OTHER ==
[~2016-10-07] VITALS: Ht 170.2 cm; Wt 58.7 kg
[2016-10-07] VITALS (24 sets, daily range): BP systolic 87–213; BP diastolic 50–116; PULSE 48–94; RESP 14–24; TEMP 96.6–98.7; O2SAT 97–100
[~2016-10-07 12:14] MED LIST changes: -DILA100C PO; +PHEN200C3 PO; +SYMB160A INH
[2016-10-07] MEDS ORDERED: SUCCINYLCHOLINE CHLORIDE 200 MG/10 ML VIAL ONE (12:21)
[2016-10-07] MEDS ORDERED: PROPOFOL 1000 MG/100 ML INJ 100 ML ONE (12:21)
[2016-10-07] MEDS ORDERED: ETOMIDATE 20 MG/10 ML VIAL ONE (12:21)
[2016-10-07] MEDS ORDERED: ETOMIDATE 20 MG/10 ML VIAL IVP ONE (12:45)
[2016-10-07] MEDS ORDERED: SODIUM CHLORIDE 0.9% FLUSH 10 ML FLUSH IVF PRN (12:45)
--- NOTE | 2016-10-07 12:46 | PD ---
HPI Chief Complaint: Seizure Time Seen by Provider: 12:33 Travel History International Travel<30 days: No Contact w/Intl Traveler<30days: No Traveled to known affect area: No History of Present Illness HPI The patient was seen and examined in the presence of the nurse. This patient arrives critically ill emergently from her assisted living facility. This patient has significant seizure history and is on 4 different antiepileptics. She was witnessed to have multiple seizures at the facility and paramedics were called. They were unable to place an IV and gave 4 mg IM Ativan. This did not stop the seizures. She had multiple seizures described as grand mal by paramedics in the ambulance. She has never opened her eyes or spoke since the initial one. Unable to provide any history or review of system. PFSH Past Medical History Hx Anticoagulant Therapy: Yes (325MG ASA DAILY) Arthritis: Yes Asthma: No Autoimmune Disease: No Bipolar Disorder: Yes Anxiety: No Depression: Yes Heart Rhythm Problems: No Cancer: No Cardiovascular Problems: Yes (HTN) High Cholesterol: Yes Chemotherapy: No Chest Pain: Yes Congestive Heart Failure: No COPD: No Cerebrovascular Accident: Yes (R SIDED WEAKNESS ) Diabetes: No Diminished Hearing: Yes Endocrine: No Gastrointestinal Disorders: Yes (IBS) GERD: No Glaucoma: No Genitourinary: No Headaches: Yes (once a week) Hepatitis: No Hiatal Hernia: No Hypertension: Yes Immune Disorder: No Implanted Vascular Access Dvce: No Kidney Stones: No Musculoskeletal: Yes Neurologic: Yes (SHORT TERM MEMORY LOSS ) Psychiatric: Yes Reproductive: No Respiratory: Yes Immunizations Current: No Migraines: No Myocardial Infarction: No Radiation Therapy: No Renal Failure: No Schizophrenia: Yes (SCHIZOAFFECTIVE) Seizures: Yes (EPILEPSY, RECURRENT SEIZURES) Sickle Cell Disease: No Sleep Apnea: No Thyroid Disease: No Ulcer: No Tetanus Vaccination: > 5 Years Influenza Vaccination: Yes PNEUMOCCOCAL Vaccine (Year): 2 Menopausal: Yes : 0 Tubal Ligation: Yes Past Surgical History Abdominal Surgery: No AICD: No Appendectomy: No Arteriovenous Shunt: No Cardiac Surgery: No Cholecystectomy: No Ear Surgery: Yes (bilateral) Endocrine Surgery: No Eye Surgery: No Genitourinary Surgery: No Gynecologic Surgery: Yes (tubal ligation) Hysterectomy: No Insulin Pump: No Joint Replacement: No Neurologic Surgery: No Oral Surgery: Yes (Jaw/ TMJ) Pacemaker: No Thoracic Surgery: No Other Surgery: Yes (see below) Social History Alcohol Use: No (ETOH ABUSE) Tobacco Use: Yes (1 ppd) Substance Use: No (Hx crack cocaine use, + this admission) Allergies-Medications (Allergen,Severity, Reaction): Coded Allergies: Aripiprazole (Verified Allergy, Unknown, 10/07/16) Reported Meds & Prescriptions Reported Meds & Active Scripts Active Topamax (Topiramate) 50 Mg Tab 50 Mg PO BID Reported Symbicort Inh (Budesonide/Formoterol Fumarate) 160-4.5 Mcg/Act Aero 2 Puff INH BID Phenytoin Extended 200 Mg Cap 200 Mg PO BID Folate (Folic Acid) 1 Mg Tab 1 Mg PO DAILY Vitamin E 1,000 Unit Cap 1,000 Units PO DAILY Vimpat (Lacosamide) 100 Mg Tab 100 Mg PO TID Ventolin Hfa 18 GM Inh (Albuterol Sulfate) 90 Mcg/Act Aer 2 Puff INH QID Trazodone (Trazodone HCl) 100 Mg Tab 200 Mg PO HS Spiriva Handihaler (Tiotropium Inh) 18 Mcg Cap 1 Cap INH DAILY DO NOT SWALLOW CAPS Protonix (Pantoprazole Sodium) 40 Mg Tab 40 Mg PO DAILY Metoprolol Tartrate 50 Mg Tab 50 Mg PO BID Lisinopril 20 Mg Tab 20 Mg PO DAILY Levetiracetam 1,000 Mg Tab 1,000 Mg PO TID Donepezil 10 Mg Tab 10 Mg PO BID Colace (Docusate Sodium) 100 Mg Cap 100 Mg PO BID Citalopram (Citalopram Hydrobromide) 40 Mg Tab 40 Mg PO DAILY Atorvastatin (Atorvastatin Calcium) 80 Mg Tab 80 Mg PO HS Aspirin EC (Aspirin) 81 Mg Tabdr 81 Mg PO DAILY Review of Systems ROS Limitations: Clinical Condition, Altered Mental Status, Poor Historian Eyes: No: Visual changes Musculoskeletal: No: Pain Neurologic: Positive: Seizures Physical Exam Narrative GENERAL: Well-nourished, well-developed patient minimally responsive with facial twitching . SKIN: Focused skin assessment reveals no rash and nodules. Skin is Warm and dry. HEAD: Atraumatic. Normocephalic. EYES: Pupils are round and reactive, right side half millimeter greater than left. No injection or drainage. ENT: No nasal bleeding or discharge. Mucous membranes pink and moist. NECK: Trachea midline. No JVD. CARDIOVASCULAR: Regular rate and rhythm. No murmur appreciated. RESPIRATORY: No accessory muscle use. Clear to auscultation. Breath sounds equal bilaterally. GASTROINTESTINAL: Abdomen soft, non-tender, nondistended. Hepatic and splenic margins not palpable. MUSCULOSKELETAL: No obvious deformities. No clubbing. No cyanosis. No edema. NEUROLOGICAL: Patient is having frequent seizures and not waking up between them. In status epilepticus. Has no gag reflex. Not able to control her airway. Possible accurately gauge motor strength or sensation. She is nonverbal. Minimal asymmetry between pupils right half a millimeter greater than left but both round and reactive PSYCHIATRIC: Unable to test mood and affect; insight and judgment poor Data Data Last Documented VS Vital Signs Date Time Temp Pulse Resp B/P Pulse Ox O2 Delivery O2 Flow Rate FiO2 10/07/16 13:19 100 40 10/07/16 13:13 98.4 59 14 125/58 Ventilator 10/07/16 12:15 15 Orders Propofol 1000 Mg/100 Ml Inj (Diprivan 10 (10/07/16 12:21) Etomidate Inj (Amidate Inj) (10/07/16 12:21) Succinylcholine Inj (Quelicin Inj) (10/07/16 12:21) Chest, Single Ap (10/07/16 ) Ct Brain W/O Iv Contrast(Rout) (10/07/16 ) Arterial Blood Gas (Abg) (10/07/16 12:38) Ecg Monitoring (10/07/16 12:38) Iv Access Insert/Monitor (10/07/16 12:38) Ng Gastric Tube Insert/Monitor (10/07/16 12:38) Urinary Catheter Insert/Apply (10/07/16 12:38) Oximetry (10/07/16 12:38) Oxygen Administration (10/07/16 12:38) Etomidate Inj (Amidate Inj) (10/07/16 12:45) Sodium Chloride 0.9% Flush (Ns Flush) (10/07/16 12:45) Restraints Non-Violent TALISHA.Q3H (10/07/16 12:38) Complete Blood Count With Diff (10/07/16 12:38) Basic Metabolic Panel (Bmp) (10/07/16 12:38) Phenytoin (Dilantin) (10/07/16 12:38) Roller Mill Operator / Telemetry TALIHSA.Q8H (10/07/16 12:39) Lorazepam Inj (Ativan Inj) (10/07/16 13:00) Lorazepam Inj (Ativan Inj) (10/07/16 12:52) Labs Laboratory Tests Test 10/07/16 10/07/16 11:21 12:50 White Blood Count 12.8 TH/MM3 Red Blood Count 5.09 MIL/MM3 Hemoglobin 15.8 GM/DL Hematocrit 47.0 % Mean Corpuscular Volume 92.3 FL Mean Corpuscular Hemoglobin 31.1 PG Mean Corpuscular Hemoglobin 33.7 % Concent Red Cell Distribution Width 13.9 % Platelet Count 254 TH/MM3 Mean Platelet Volume 8.4 FL Neutrophils (%) (Auto) 58.6 % Lymphocytes (%) (Auto) 29.3 % Monocytes (%) (Auto) 10.6 % Eosinophils (%) (Auto) 0.8 % Basophils (%) (Auto) 0.7 % Neutrophils # (Auto) 7.5 TH/MM3 Lymphocytes # (Auto) 3.8 TH/MM3 Monocytes # (Auto) 1.4 TH/MM3 Eosinophils # (Auto) 0.1 TH/MM3 Basophils # (Auto) 0.1 TH/MM3 CBC Comment DIFF FINAL Differential Comment Sodium Level 131 MEQ/L Potassium Level 4.4 MEQ/L Chloride Level 100 MEQ/L Carbon Dioxide Level 19.3 MEQ/L Anion Gap 12 MEQ/L Blood Urea Nitrogen 7 MG/DL Creatinine 1.03 MG/DL Estimat Glomerular Filtration 54 ML/MIN Rate Random Glucose 119 MG/DL Calcium Level 8.4 MG/DL Phenytoin (Dilantin) Level 13.7 MCG/ML Blood Gas Puncture Site LT RADIAL Blood Gas Patient Temperature 98.6 Blood Gas HCO3 20 mmol/L Blood Gas Base Excess -5.3 mmol/L Blood Gas Oxygen Saturation 94 % Arterial Blood pH 7.32 Arterial Blood Partial 39 mmHg Pressure CO2 Arterial Blood Partial 149 mmHG Pressure O2 Arterial Blood Oxygen Content 19.3 Vol % Arterial Blood 4.4 % Carboxyhemoglobin Arterial Blood Methemoglobin 0.6 % Blood Gas Hemoglobin 14.4 G/DL Oxygen Delivery Device VENTILATOR Blood Gas Ventilator Setting AC/VT500/R14/[id number] Blood Gas Inspired Oxygen 40 % MDM Medical Decision Making Medical Screen Exam Complete: Yes Emergency Medical Condition: Yes Medical Record Reviewed: Yes Differential Diagnosis Status epilepticus, uncontrolled seizure disorder, intracranial hemorrhage Narrative Course I have reviewed the patient's electronic medical record. Patient has many visits here for seizure problems. She was admitted for status epilepticus August 2016 This patient arrives critically ill and status epilepticus. She has had numerous and continual seizures. She has no ability to control her airway INTUBATION: The patient was put in optimal position for the procedure. Rapid sequence intubation was initiated by me using 20 milligrams of etomidate IV. The patient was intubated with a 7.5 cuffed endotracheal tube. Tube placement was confirmed by visualization of the tube and balloon passing through the cords , capnometry and subsequent chest x-ray. Breath sounds were equal and well aerated bilaterally postintubation. No breath sounds over stomach. Patient tolerated procedure well. I placed bilateral external jugular IVs, 18-gauge on the left and 20-gauge in the right Nurse placed a left arm IV for total of 3 peripheral IV I reviewed her postintubation chest x-ray CBC is normal Metabolic profile reasonably normal Dilantin level is 13.7, therapeutic Brain CT is normal Patient arrived with accelerated hypertension of 213 systolic However, after Diprivan boluses and drip her blood pressure is 150 systolic Patient was restless and had involuntary motor movements and gnashing on the tube so I gave her 2 30 milligrams IV Diprivan boluses then initiated drip This Is a complicated case requiring a lot of bedside time and multiple rechecks I gave her 2 mg IV Ativan Placed a call to her neurologist to discuss I discussed with who will be a internal control consultant I discussed with mortgage protection sales who will admit Critical Care Narrative Aggregate critical care time was 82 minutes. Time to perform other separately billable procedures was not included in the critical care time. My time did not include minutes spent treating any other patients simultaneously or on activities that did not directly contribute to the patient's treatment. The services I provided to this patient were to treat and/or prevent clinically significant deterioration that could result in: Loss of airway, aspiration, intracranial hemorrhage, cardiopulmonary arrest I provided critical care services requiring my management, as noted below: Chart data review, documentation time, medication orders and management, vital sign assessments/reviewing monitor data, ordering and reviewing lab tests, ordering and interpreting/reviewing x-rays and diagnostic studies, care of the patient and discussion of the patient with the admitting physicians. Diagnosis Primary Impression: Status epilepticus Additional Impression: HTN (hypertension) Qualified Code: I10 - Essential hypertension Admitting Information Admitting Physician Requests: Admit Arnaldo Del Toro MD Oct 07, 2016 12:46
[2016-10-07 12:50] LABS: AUTOMATED NEUTROPHIL # 7.5 TH/MM3 (1.8-7.7); BASOPHIL # 0.1 TH/MM3 (0-0.2); BASOPHIL % 0.7 % (0.0-2.0); EOSINOPHIL # 0.1 TH/MM3 (0-0.4); EOSINOPHIL % 0.8 % (0.0-4.0); HEMO FLAGS DIFF FINAL; LYMPH % 29.3 % (9.0-44.0); LYMPHOCYTE # 3.8 TH/MM3 (1.0-4.8); MEAN CELL VOLUME 92.3 FL (80.0-100.0); MEAN CORPUSCULAR HEMOGLOBIN 31.1 PG (27.0-34.0); MEAN CORPUSCULAR HGB CONC 33.7 % (32.0-36.0); MONO % 10.6 % (0.0-8.0); NEUT % 58.6 % (16.0-70.0); PLATELET COUNT 254 TH/MM3 (150-450); RED BLOOD COUNT 5.09 MIL/MM3 (4.00-5.30); RED CELL DISTRIBUTION WIDTH 13.9 % (11.6-17.2); WHITE BLOOD COUNT 12.8 TH/MM3 (4.0-11.0)
[2016-10-07] MEDS ORDERED: LORazepam 2 MG/ML VIAL ONE (12:52)
[2016-10-07] MEDS ORDERED: LORazepam 2 MG/ML VIAL IV PUSH ONE (13:00)
--- NOTE | 2016-10-07 13:02 | RADRPT ---
EXAM DATE/TIME: 10/07/2016 12:34 [facility] COMPARISON: CHEST SINGLE AP, April 13, 2016, 16:13. INDICATIONS : Post intubation. MEDICAL HISTORY : None. SURGICAL HISTORY : None. ENCOUNTER: Initial ACUITY: 1 day PAIN SCORE: Non-responsive. LOCATION: Bilateral chest FINDINGS: Single portable supine view of the chest demonstrates interval intubation with the endotracheal tube seen just to the level of the clavicles. There is a gastric tube identified with the proximal port be low the level of the diaphragm. The lungs are hyperinflated and clear. Heart size appears normal. Pulmonary vasculature is normal. Os seous structures are unremarkable. CONCLUSION: Interval intubation and placement of a gastric tube which appear appropriate position. Stable appeara nce of the lungs consistent with emphysema. Mattie Bourgeois MD on October 07, 2016 at 13:00 Board Certified Radiologist. This report was verified electronically.
--- NOTE | 2016-10-07 13:16 | RADRPT ---
EXAM DATE/TIME: 10/07/2016 12:58 [facility] COMPARISON: CT BRAIN W/O CONTRAST, August 06, 2016, 14:02. INDICATIONS : Seizure; Status epilepticus. RADIATION DOSE: 56.35 CTDIvol (mGy) MEDICAL HISTORY : Seizures. Hypertension. Cardiovascular disease SURGICAL HISTORY : Tubal ligation. ENCOUNTER: Initial ACUITY: 1 day PAIN SCALE: Non-responsive LOCATION: cranial TECHNIQUE: Multiple contiguous axial images were obtained of the head. Using automated exposure control and adj ustment of the mA and/or kV according to patient size, radiation dose was kept as low as reasonably a chievable to obtain optimal diagnostic quality images. FINDINGS: CEREBRUM: Stable diffuse white matter atrophy. No evidence of midline shift, mass lesion, hemorrhage or acute i nfarction. No extra-axial fluid collections are seen. POSTERIOR FOSSA: The cerebellum and brainstem are intact. The 4th ventricle is midline. The cerebellopontine angle i s unremarkable. EXTRACRANIAL: The visualized portion of the orbits is intact. SKULL: The calvaria is intact. No evidence of skull fracture. CONCLUSION: No acute disease. Mattie Bourgeois MD on October 07, 2016 at 13:13 Board Certified Radiologist. This report was verified electronically.
[2016-10-07 13:18] LABS: BICARBONATE 19.3 MEQ/L (21.0-32.0)
[2016-10-07 13:22] LABS: POTASSIUM 4.4 MEQ/L (3.5-5.1)
[2016-10-07 13:24] LABS: BLOOD GAS BASE EXCESS -5.3 mmol/L (-2-2); BLOOD GAS CARBOXYHEMOGLOBIN 4.4 % (0-4); BLOOD GAS HCO3 20 mmol/L (22-26); BLOOD GAS METHEMOGLOBIN 0.6 % (0-2); BLOOD GAS O2 HGB SATURATION 94 % (90-100); BLOOD GAS OXYGEN CONTENT 19.3 Vol % (12.0-20.0); BLOOD GAS PCO2 39 mmHg (38-42); BLOOD GAS PO2 149 mmHG (61-120); BLOOD GAS TOTAL HGB 14.4 G/DL (12.0-16.0); CRITICAL VALUE NO; OXYGEN DEVICE VENTILATOR; TEMP CORR TO 98.6
[2016-10-07 13:25] LABS: DRAW SITE LT RADIAL; FIO2 40 %; NUMBER OF ARTERIAL PUNCTURES 1; STAT YES; ULNAR PULSE Y; VENT SETTINGS AC/VT500/R14/PEEP5
[2016-10-07] MEDS: PROPOFOL 1000 MG/100 ML INJ 100 ML IV SCH ×2 (13:47→13:48)
--- NOTE | 2016-10-07 14:24 | HHI.HP ---
HPI Service Critical Care Medicine Primary Care Physician Unknown Admission Diagnosis status epilepticus Diagnosis: Travel History International Travel<30 Days: No Contact w/Intl Traveler <30 Da: No Traveled to Known Affected Are: No History of Present Illness The patient presented to the ED with status epilepticus from her assisted living facility. This patient has significant seizure history and is on 4 different antiepileptics, recently discharged from [facility] 08/09/2016. In route to the hospital EMS gave 4 mg IM Ativan.The seizures continued. She had multiple seizures described as grand mal by paramedics in the ambulance. The patient upon admission to ED the patient was noted to be hypertensive and continued to have seizures, the patient was intubated for airway protection by ED staff and given 2 mg of Ativan IV. The patient was then placed on a propofol infusion. , neurologist was consulted. Dilantin level was obtained .Critical care medicine is consulted for ventilatory management. PFSH Past Medical History Hx Anticoagulant Therapy: Yes (325MG ASA DAILY) Arthritis: Yes Asthma: No Autoimmune Disease: No Bipolar Disorder: Yes Anxiety: No Depression: Yes Heart Rhythm Problems: No Cancer: No Cardiovascular Problems: Yes (HTN) High Cholesterol: Yes Chemotherapy: No Chest Pain: Yes Congestive Heart Failure: No COPD: No Cerebrovascular Accident: Yes (R SIDED WEAKNESS ) Diabetes: No Diminished Hearing: Yes Endocrine: No Gastrointestinal Disorders: Yes (IBS) GERD: No Glaucoma: No Genitourinary: No Headaches: Yes (once a week) Hepatitis: No Hiatal Hernia: No Hypertension: Yes Immune Disorder: No Implanted Vascular Access Dvce: No Kidney Stones: No Musculoskeletal: Yes Neurologic: Yes (SHORT TERM MEMORY LOSS ) Psychiatric: Yes Reproductive: No Respiratory: Yes Immunizations Current: No Migraines: No Myocardial Infarction: No Radiation Therapy: No Renal Failure: No Schizophrenia: Yes (SCHIZOAFFECTIVE) Seizures: Yes (EPILEPSY, RECURRENT SEIZURES) Sickle Cell Disease: No Sleep Apnea: No Thyroid Disease: No Ulcer: No Tetanus Vaccination: > 5 Years Influenza Vaccination: Yes PNEUMOCCOCAL Vaccine (Year): 2 Menopausal: Yes : 0 Tubal Ligation: Yes Past Surgical History Abdominal Surgery: No AICD: No Appendectomy: No Arteriovenous Shunt: No Cardiac Surgery: No Cholecystectomy: No Ear Surgery: Yes (bilateral) Endocrine Surgery: No Eye Surgery: No Genitourinary Surgery: No Gynecologic Surgery: Yes (tubal ligation) Hysterectomy: No Insulin Pump: No Joint Replacement: No Neurologic Surgery: No Oral Surgery: Yes (Jaw/ TMJ) Pacemaker: No Thoracic Surgery: No Other Surgery: Yes (see below) Social History Alcohol Use: No (ETOH ABUSE) Tobacco Use: Yes (1 ppd) Substance Use: No (Hx crack cocaine use) Allergies-Medications (Allergen,Severity, Reaction): Coded Allergies: Aripiprazole (Verified Allergy, Unknown, 10/07/16) Reported Meds & Prescriptions Reported Meds & Active Scripts Active Topamax (Topiramate) 50 Mg Tab 50 Mg PO BID Reported Symbicort Inh (Budesonide/Formoterol Fumarate) 160-4.5 Mcg/Act Aero 2 Puff INH BID Phenytoin Extended 200 Mg Cap 200 Mg PO BID Folate (Folic Acid) 1 Mg Tab 1 Mg PO DAILY Vitamin E 1,000 Unit Cap 1,000 Units PO DAILY Vimpat (Lacosamide) 100 Mg Tab 100 Mg PO TID Ventolin Hfa 18 GM Inh (Albuterol Sulfate) 90 Mcg/Act Aer 2 Puff INH QID Trazodone (Trazodone HCl) 100 Mg Tab 200 Mg PO HS Spiriva Handihaler (Tiotropium Inh) 18 Mcg Cap 1 Cap INH DAILY DO NOT SWALLOW CAPS Protonix (Pantoprazole Sodium) 40 Mg Tab 40 Mg PO DAILY Metoprolol Tartrate 50 Mg Tab 50 Mg PO BID Lisinopril 20 Mg Tab 20 Mg PO DAILY Levetiracetam 1,000 Mg Tab 1,000 Mg PO TID Donepezil 10 Mg Tab 10 Mg PO BID Colace (Docusate Sodium) 100 Mg Cap 100 Mg PO BID Citalopram (Citalopram Hydrobromide) 40 Mg Tab 40 Mg PO DAILY Atorvastatin (Atorvastatin Calcium) 80 Mg Tab 80 Mg PO HS Aspirin EC (Aspirin) 81 Mg Tabdr 81 Mg PO DAILY Review of Systems ROS Limitations: Clinical Condition, Altered Mental Status, Poor Historian Eyes: No: Visual changes Musculoskeletal: No: Pain Neurologic: Positive: Seizures Physical Exam Vital Signs Vital Signs Date Time Temp Pulse Resp B/P Pulse Ox O2 Delivery O2 Flow Rate FiO2 10/07/16 14:05 98.4 52 14 114/60 100 Ventilator 40 10/07/16 14:05 40 10/07/16 14:00 53 14 96/55 100 Ventilator 40 10/07/16 13:40 98.6 55 14 101/58 100 Ventilator 40 10/07/16 13:19 100 40 10/07/16 13:13 98.4 59 14 125/58 100 Ventilator 40 10/07/16 13:05 60 14 142/66 100 Ventilator 40 10/07/16 13:00 74 14 101/58 100 Ventilator 40 10/07/16 12:45 64 14 121/66 100 Ventilator 40 10/07/16 12:30 74 14 151/95 100 Ventilator 40 10/07/16 12:25 84 14 213/115 100 Ventilator 40 10/07/16 12:25 40 10/07/16 12:25 100 Ventilator 40 10/07/16 12:15 94 24 205/116 97 Non-Rebreather 15 10/07/16 12:14 94 24 97 Non-Rebreather 15 10/07/16 12:14 96.6 94 24 205/116 97 Physical Exam GENERAL: Critically ill appearing sedated and intubated female. SKIN: Warm and dry. HEAD: Atraumatic. Normocephalic. EYES: Pupils equal and round. No scleral icterus. No injection or drainage. ENT: No nasal bleeding or discharge. Mucous membranes pink and moist. NECK: Trachea midline. No JVD. CARDIOVASCULAR: Normal rate, regular rhythm. RESPIRATORY: No accessory muscle use. Clear to auscultation. Breath sounds equal bilaterally. GASTROINTESTINAL: Abdomen soft, non-tender, nondistended. No guarding. MUSCULOSKELETAL: Extremities without clubbing, cyanosis, or edema. No obvious deformities. NEUROLOGICAL: GCS 3T. Intubated and sedated on propofol infusion, unable to assess neurological status. Laboratory Laboratory Tests Test 10/07/16 10/07/16 11:21 12:50 White Blood Count 12.8 Red Blood Count 5.09 Hemoglobin 15.8 Hematocrit 47.0 Mean Corpuscular Volume 92.3 Mean Corpuscular Hemoglobin 31.1 Mean Corpuscular Hemoglobin 33.7 Concent Red Cell Distribution Width 13.9 Platelet Count 254 Mean Platelet Volume 8.4 Neutrophils (%) (Auto) 58.6 Lymphocytes (%) (Auto) 29.3 Monocytes (%) (Auto) 10.6 Eosinophils (%) (Auto) 0.8 Basophils (%) (Auto) 0.7 Neutrophils # (Auto) 7.5 Lymphocytes # (Auto) 3.8 Monocytes # (Auto) 1.4 Eosinophils # (Auto) 0.1 Basophils # (Auto) 0.1 CBC Comment DIFF FINAL Differential Comment Sodium Level 131 Potassium Level 4.4 Chloride Level 100 Carbon Dioxide Level 19.3 Anion Gap 12 Blood Urea Nitrogen 7 Creatinine 1.03 Estimat Glomerular Filtration 54 Rate Random Glucose 119 Calcium Level 8.4 Phenytoin (Dilantin) Level 13.7 Blood Gas Puncture Site LT RADIAL Blood Gas Patient Temperature 98.6 Blood Gas HCO3 20 Blood Gas Base Excess -5.3 Blood Gas Oxygen Saturation 94 Arterial Blood pH 7.32 Arterial Blood Partial 39 Pressure CO2 Arterial Blood Partial 149 Pressure O2 Arterial Blood Oxygen Content 19.3 Arterial Blood 4.4 Carboxyhemoglobin Arterial Blood Methemoglobin 0.6 Blood Gas Hemoglobin 14.4 Oxygen Delivery Device VENTILATOR Blood Gas Ventilator Setting AC/VT500/R14/PEEP5 Blood Gas Inspired Oxygen 40 Result Diagram: 10/07/16 1121 10/07/16 1121 Imaging Last Impressions Head CT 10/07/16 0000 Signed Impressions: Service Date/Time: Friday, October 07, 2016 12:58 - CONCLUSION: No acute disease. Mattie Bourgeois MD Chest X-Ray 10/07/16 0000 Signed Impressions: Service Date/Time: Friday, October 07, 2016 12:34 - CONCLUSION: Interval intubation and placement of a gastric tube which appear appropriate position. Stable appearance of the lungs consistent with emphysema. Mattie Bourgeois MD Septic Shock Reassessment Heart: Regular rate and rhythm Lungs: Clear Skin: Warm Peripheral Pulses: Bounding Right Radial Bounding Left Radial Bounding Right Dorsalis Pedis Bounding Left Dorsalis Pedis Assessment and Plan Assessment and Plan Plan by systems: Neurologic: Status epilepticus Seizure disorder Major depression disorder History of TIA-right carotid artery History of CVA with short-term memory loss Schizoaffective disorder History of crack cocaine use TMJ disorder History of EtOH abuse Patient intubated and sedated, currently on propofol infusion, will change to Versed and fentanyl infusion Patient's home meds include Topamax, Vimpat, Keppra, Dilantin to be continued Continue home med Donepizil 10 mg twice a day,home medication. Patient also on atorvastatin and aspirin Neurology consulted Dr. Zamora 2/8/17EEG abnormality right mid temporal lobe which is epileptiform. 08/06/16-MRI-no acute findings 10/07/16 CT brain-no acute disease 10/07/16-Dilantin level 13.7 Monitor for signs of alcohol withdrawal, Ativan when necessary And Folate1 mg daily and multivitamin daily Respiratory: COPD Tobacco abuse Continue Spiriva, and Symbicort (home med) Duo nebs every 6 hours scheduled, and every 2 hours when necessary Nicotine patch medium dose 7 days Mechanical ventilation settings 500/14/5/0.40 10/07/16-CXR stable appearance of lungs with emphysema Repeat ABG Ventilator bundle Maintain head of bed greater than 30 Cardiovascular: Hyperlipidemia Hypertension Continue atorvastatin, aspirin 81 mg/day, and metoprolol 50 mg twice a day Obtain LFTs Renal: Chronic hyponatremia Renal insufficiency Monitor BMP, normal saline at 84cc/hour -- Strict I/Os FEN/GI: Hyperlipidemia Insert OGT Continue atorvastatin Obtain LFTs Protonix 40 mg daily Heme/ID: Leukocytosis Obtain blood and urine cultures Monitor CBC. WBC 12 Endocrine: Glucose monitoring per ICU protocol -- SSI Prophylaxis: GI Prophylaxis Protonix DVT Prophylaxis -- SCDs Heparin 5000 units subcutaneous every 12 hours Lines: Peripheral IVs. Central line if indicated Dispo: This patient remains critically ill with one or more organ systems which are or may become a threat to life. I have spent in excess of 49 minutes discontinuously in the care and management of this patient. This time is exclusive of procedures, and includes, but is not limited to, evaluation of the patient, review of the medical record, discussions with family, consultants, nursing staff, or respiratory therapy, and documentation in the medical record. Code Status Full Discussed Condition With RADIOLOGIC TECHNOLOGIST CHIEF at bedside Kellen Toledo MD Oct 07, 2016 14:24
[2016-10-07] MEDS ORDERED: MAGNESIUM SULFATE INJ 2 GM in SODIUM CHLORIDE 0.9% INJ 96 ML IV PRN (14:30)
[2016-10-07] MEDS ORDERED: MISCELLANEOUS NURSING INFORMATION XX SCH (14:30)
[2016-10-07] MEDS ORDERED: ONDANSETRON HCL 4 MG/2 ML VIAL IV PRN (14:30)
[2016-10-07] MEDS ORDERED: POTASSIUM CHLOR 40 MEQ PREMIX 100 ML IV PRN ×2 (14:30)
[2016-10-07] MEDS ORDERED: CHLORHEXIDINE GLUCONATE 2 % 1 PACK (2 CLOTHS) TOP PRN (14:30)
[2016-10-07] MEDS ORDERED: POTASSIUM CHLOR 20 MEQ PREMIX 100 ML IV PRN ×2 (14:30)
[2016-10-07] MEDS ORDERED: MAGNESIUM OXIDE 400 MG TAB PO PRN (14:30)
[2016-10-07] MEDS ORDERED: MAGNESIUM SULFATE INJ 4 GM in SODIUM CHLORIDE 0.9% INJ 92 ML IV PRN (14:30)
[2016-10-07] MEDS ORDERED: POTASSIUM PHOSPHATE MONOBASIC 500 MG TAB PO PRN (14:30)
[2016-10-07] MEDS ORDERED: BISACODYL 10 MG SUPP RECTAL PRN (14:30)
[2016-10-07] MEDS ORDERED: RESP: ALBUTEROL 2.5 MG/IPRATROPIUM 0.5 MG NEB (PRN) INH (14:30)
[2016-10-07] MEDS ORDERED: POTASSIUM PHOSPHATE INJ 30 MMOL in SODIUM CHLOR 0.9% 250 ML INJ 250 ML IV PRN (14:30)
[2016-10-07] MEDS ORDERED: SODIUM PHOSPHATE INJ 30 MMOL in SODIUM CHLOR 0.9% 250 ML INJ 240 ML IV PRN (14:30)
[2016-10-07] MEDS ORDERED: POTASSIUM PHOSPHATE MONOBASIC 500 MG TAB PO/TUBE PRN (14:30)
[2016-10-07] MEDS ORDERED: DEXTROSE 50% IN WATER 50 ML VIAL(D50) IV PUSH PRN (15:30)
[2016-10-07] MEDS ORDERED: GLUCAGON 1 MG/ML VIAL OTHER PRN (15:30)
[2016-10-07 15:36] LABS: AMPHETAMINE, URINE NEG (NEG); BARBITURATES, URINE NEG (NEG); COCAINE, URINE NEG (NEG)
[2016-10-07] MEDS: fentaNYL DRIP 250 ML IV SCH (15:37)
[2016-10-07] MEDS: MIDAZOLAM 100 MG/ML INJ 100 ML IV SCH (15:37)
[2016-10-07] MEDS: RESP: ALBUTEROL 2.5 MG/IPRATROPIUM 0.5 MG NEB (SCH) INH ×2 (15:39→20:12)
[2016-10-07] MEDS: SODIUM CHLOR 0.9% 1000 ML INJ 1,000 ML IV SCH (16:00)
[2016-10-07] MEDS: INSULIN NovoLIN REGULAR SUPPLEMENTAL SCALE SQ SCH ×2 (16:00→21:00)
[2016-10-07 17:12] LABS: BLOOD GAS BASE EXCESS -0.5 mmol/L (-2-2); BLOOD GAS CARBOXYHEMOGLOBIN 2.7 % (0-4); BLOOD GAS HCO3 24 mmol/L (22-26); BLOOD GAS METHEMOGLOBIN 1.1 % (0-2); BLOOD GAS O2 HGB SATURATION 96 % (90-100); BLOOD GAS OXYGEN CONTENT 18.6 Vol % (12.0-20.0); BLOOD GAS PCO2 41 mmHg (38-42); BLOOD GAS PO2 150 mmHg (61-120); BLOOD GAS TOTAL HGB 13.7 G/DL (12.0-16.0); TEMP CORR TO 98.6
[2016-10-07 17:13] LABS: CRITICAL VALUE NO; OXYGEN DEVICE VENTILATOR
[2016-10-07 17:15] LABS: DRAW SITE LT RADIAL; FIO2 40 %; NUMBER OF ARTERIAL PUNCTURES 2; ULNAR PULSE PRESENT
[2016-10-07 17:16] LABS: STAT NO
[2016-10-07 17:53] LABS: ALKALINE PHOSPHATASE 114 U/L (45-117); ALT (GPT) 53 U/L (10-53); INDIRECT BILIRUBIN 0.2 MG/DL (0.0-0.8); TOTAL BILIRUBIN ADULT 0.3 MG/DL (0.2-1.0)
[2016-10-07 17:55] LABS: AST (GOT) 42 U/L (15-37)
[2016-10-07] MEDS: ARTIFICIAL TEARS OPTH SOLN 15 ML BTL EACH EYE SCH (18:00)
[2016-10-07] MEDS: levETIRAcetam 500 MG TAB PO SCH (18:14)
[2016-10-07] MEDS: HEPARIN SODIUM - SQ 10,000 UNITS/ML VIAL SQ SCH (18:14)
[2016-10-07] MEDS: LACOSAMIDE 100 MG TAB PO SCH (18:14)
[2016-10-07] MEDS: DOCUSATE SODIUM 100 MG/10 ML UDC G-TUBE SCH (18:14)
[2016-10-07] MEDS: METOPROLOL TARTRATE 50 MG TAB PO SCH (21:00)
[2016-10-07] MEDS: ATORVASTATIN 80 MG TAB PO SCH (21:51)
[2016-10-07] MEDS: LORazepam 2 MG/ML VIAL IV PUSH PRN (21:51)
[2016-10-07] MEDS: TOPIRAMATE 25 MG TAB PO SCH (21:51)
[2016-10-07] MEDS: CHLORHEXIDINE 0.12% (ORAL KIT) 15 ML CUP MT SCH (21:52)
[2016-10-07] MEDS: BUDESONIDE-FORMOTEROL 160/4.5 MCG INHALER INH SCH (21:52)
[2016-10-07] MEDS: PHENYTOIN SODIUM 100 MG CAP PO SCH (21:52)
[2016-10-08] VITALS (17 sets, daily range): BP systolic 97–169; BP diastolic 55–83; PULSE 47–99; RESP 14–17; TEMP 98–100; O2SAT 94–100
[2016-10-08] MEDS: SODIUM CHLOR 0.9% 1000 ML INJ 1,000 ML IV SCH ×3 (02:22→20:58)
[2016-10-08] MEDS: CHLORHEXIDINE GLUCONATE 2 % 1 PACK (2 CLOTHS) TOP SCH (02:22)
[2016-10-08] MEDS: RESP: ALBUTEROL 2.5 MG/IPRATROPIUM 0.5 MG NEB (SCH) INH ×4 (03:59→20:24)
[2016-10-08] MEDS: DOCUSATE SODIUM 100 MG/10 ML UDC G-TUBE SCH ×2 (04:56→17:52)
[2016-10-08] MEDS: HEPARIN SODIUM - SQ 10,000 UNITS/ML VIAL SQ SCH ×2 (04:57→17:52)
[2016-10-08] MEDS: INSULIN NovoLIN REGULAR SUPPLEMENTAL SCALE SQ SCH ×4 (06:28→20:02)
[2016-10-08] MEDS: MULTIVITAMINS/MINERALS THERAPEUTIC TAB PO SCH (08:28)
[2016-10-08] MEDS: CITALOPRAM HYDROBROMIDE 40 MG TAB PO SCH (08:29)
[2016-10-08] MEDS: PHENYTOIN SODIUM 100 MG CAP PO SCH ×2 (08:29→19:58)
[2016-10-08] MEDS: ASPIRIN EC 81 MG TABEC PO SCH (08:29)
[2016-10-08] MEDS: LACOSAMIDE 100 MG TAB PO SCH ×3 (08:29→17:53)
[2016-10-08] MEDS: TOPIRAMATE 25 MG TAB PO SCH ×2 (08:29→19:59)
[2016-10-08] MEDS: levETIRAcetam 500 MG TAB PO SCH ×3 (08:29→17:54)
[2016-10-08] MEDS: FOLIC ACID 1 MG TAB PO SCH (08:29)
[2016-10-08] MEDS: BUDESONIDE-FORMOTEROL 160/4.5 MCG INHALER INH SCH ×2 (08:30→21:00)
[2016-10-08] MEDS: PANTOPRAZOLE SODIUM 40 MG VIAL IV SCH (08:30)
[2016-10-08] MEDS: TIOTROPIUM BROMIDE 18 MCG INH INH SCH (08:30)
[2016-10-08] MEDS: ARTIFICIAL TEARS OPTH SOLN 15 ML BTL EACH EYE SCH ×3 (08:30→17:52)
[2016-10-08] MEDS: CHLORHEXIDINE 0.12% (ORAL KIT) 15 ML CUP MT SCH ×2 (08:31→20:00)
--- NOTE | 2016-10-08 08:32 | HHI.CCPN ---
Subjective Remarks/Hospital Course The patient presented to the ED with status epilepticus from her assisted living facility. This patient has significant seizure history and is on 4 different antiepileptics, recently discharged from [facility] 08/09/2016. In route to the hospital EMS gave 4 mg IM Ativan.The seizures continued. She had multiple seizures described as grand mal by paramedics in the ambulance. The patient upon admission to ED the patient was noted to be hypertensive and continued to have seizures, the patient was intubated for airway protection by ED staff and given 2 mg of Ativan IV. The patient was then placed on a propofol infusion. , neurologist was consulted. Dilantin level was obtained .Critical care medicine is consulted for ventilatory management. Subjective 10/08: Afebrile. Upon admission to ICU yesterday afternoon the patient was noted to have 1 seizure, patient received Ativan. The patient was then placed on a Versed and fentanyl infusion. No subsequent seizures since admission yesterday afternoon. Patient's antiepileptic medications have been reinstituted. The patient remains sedated and intubated, will perform a sedation vacation today. Neurology has been called consulted per ED, Dr. Zamora awaiting recommendations. Objective Vital Signs Date Time Temp Pulse Resp B/P Pulse Ox O2 Delivery O2 Flow Rate FiO2 10/08/16 06:00 61 10/08/16 04:00 40 10/08/16 04:00 98.6 14 137/65 100 10/07/16 14:35 Ventilator 10/07/16 12:15 15 Intake and Output 10/07/16 10/07/16 10/08/16 08:00 16:00 00:00 Intake Total 899 ml Output Total 1150 ml Balance -251 ml Result Diagram: 10/07/16 1121 10/07/16 1121 Other Results Laboratory Tests Test 10/07/16 10/07/16 12:50 17:07 Blood Gas Puncture Site LT RADIAL LT RADIAL Blood Gas Patient Temperature 98.6 98.6 Blood Gas HCO3 20 mmol/L 24 mmol/L (22-26) (22-26) Blood Gas Base Excess -5.3 mmol/L -0.5 mmol/L (-2-2) (-2-2) Blood Gas Oxygen Saturation 94 % (90-100) 96 % (90-100) Arterial Blood pH 7.32 7.39 (7.380-7.420) (7.380-7.420) Arterial Blood Partial 39 mmHg (38-42) 41 mmHg (38-42) Pressure CO2 Arterial Blood Partial 149 mmHG 150 mmHg Pressure O2 (61-120) (61-120) Arterial Blood Oxygen Content 19.3 Vol % 18.6 Vol % (12.0-20.0) (12.0-20.0) Arterial Blood 4.4 % (0-4) 2.7 % (0-4) Carboxyhemoglobin Arterial Blood Methemoglobin 0.6 % (0-2) 1.1 % (0-2) Blood Gas Hemoglobin 14.4 G/DL 13.7 G/DL (12.0-16.0) (12.0-16.0) Oxygen Delivery Device VENTILATOR VENTILATOR Blood Gas Ventilator Setting AC/VT500/R14/PEEP5 Blood Gas Inspired Oxygen 40 % 40 % Imaging Last Impressions Head CT 10/07/16 0000 Signed Impressions: Service Date/Time: Friday, October 07, 2016 12:58 - CONCLUSION: No acute disease. Mattie Bourgeois MD Chest X-Ray 10/07/16 0000 Signed Impressions: Service Date/Time: Friday, October 07, 2016 12:34 - CONCLUSION: Interval intubation and placement of a gastric tube which appear appropriate position. Stable appearance of the lungs consistent with emphysema. Mattie Bourgeois MD Objective Remarks GENERAL: Critically ill appearing sedated and intubated female. SKIN: Warm and dry. HEAD: Atraumatic. Normocephalic. EYES: Pupils equal and round. No scleral icterus. No injection or drainage. ENT: No nasal bleeding or discharge. Mucous membranes pink and moist. NECK: Trachea midline. No JVD. CARDIOVASCULAR: Normal rate, regular rhythm. RESPIRATORY: No accessory muscle use. Clear to auscultation. Breath sounds equal bilaterally. GASTROINTESTINAL: Abdomen soft, non-tender, nondistended. No guarding. MUSCULOSKELETAL: Extremities without clubbing, cyanosis, or edema. No obvious deformities. NEUROLOGICAL: GCS 3T. Intubated and sedated. Urinary Catheter: Yes Hinds insert reason: Measure Accurate Output Vascular Central Line Catheter: No A/P Assessment and Plan Plan by systems: Neurologic: Status epilepticus Seizure disorder Major depression disorder History of TIA-right carotid artery History of CVA with short-term memory loss Schizoaffective disorder History of crack cocaine use TMJ disorder History of EtOH abuse Patient intubated and sedated, currently Versed and fentanyl infusion-will hold and assess neuro status Patient's home meds include Topamax, Vimpat, Keppra, Dilantin to be continued Continue home med Donepizil 10 mg twice a day,home medication. Patient also on atorvastatin and aspirin Neurology consulted Dr. Zamora 08/08/16EEG abnormality right mid temporal lobe which is epileptiform. 08/06/16-MRI-no acute findings 10/07/16 CT brain-no acute disease 10/07/16-Dilantin level 13.7 Monitor for signs of alcohol withdrawal, Ativan when necessary Folate1 mg daily and multivitamin daily Sedation vacation per protocol daily Respiratory: COPD Tobacco abuse Hypoxic Respiratory Failure Continue Spiriva, and Symbicort (home med) Duo nebs every 6 hours scheduled, and every 2 hours when necessary Nicotine patch medium dose 7 days Mechanical ventilation settings 500/14/5/0.40 10/07/16-CXR stable appearance of lungs with emphysema Ventilator bundle Maintain head of bed greater than 30 CPAP trials as tolerated Cardiovascular: Hyperlipidemia Hypertension Continue atorvastatin, aspirin 81 mg/day, and metoprolol 50 mg twice a day Obtain LFTs Renal: Chronic hyponatremia Renal insufficiency Monitor BMP, normal saline at 84cc/hour Sodium level 131, similar to levels on last admission 08/2016 continue to monitor -- Strict I/Os FEN/GI: Hyperlipidemia Continue atorvastatin Obtain AST slight elevation 52, ALT- WNL Protonix 40 mg daily Heme/ID: Leukocytosis F/U blood and urine cultures Monitor CBC. WBC 12 Endocrine: Glucose monitoring per ICU protocol -- SSI Prophylaxis: GI Prophylaxis Protonix DVT Prophylaxis -- SCDs Heparin 5000 units subcutaneous every 12 hours Lines: Peripheral IVs. Central line if indicated Discussed with CROZE CUTTER at bedside Dispo: This patient remains critically ill with one or more organ systems which are or may become a threat to life. I have spent in excess of 35 minutes discontinuously in the care and management of this patient. This time is exclusive of procedures, and includes, but is not limited to, evaluation of the patient, review of the medical record, discussions with family, consultants, nursing staff, or respiratory therapy, and documentation in the medical record. Physician Kellen Johnson MD Oct 08, 2016 08:32
[2016-10-08] MEDS ORDERED: BISACODYL 10 MG SUPP RECTAL PRN (08:45)
[2016-10-08] MEDS: METOPROLOL TARTRATE 50 MG TAB PO SCH ×2 (09:00→19:59)
[2016-10-08] MEDS: REMOVE OLD PATCH T-DERMAL SCH (09:00)
[2016-10-08] MEDS: DOCUSATE SODIUM 100 MG/10 ML UDC PO SCH ×2 (09:43→19:58)
[2016-10-08] MEDS: SENNOSIDES SYRUP 8.8 MG/5 ML CUP PO SCH (09:43)
[2016-10-08 10:35] LABS: BICARBONATE 28.1 MEQ/L (21.0-32.0); POTASSIUM 4.3 MEQ/L (3.5-5.1)
[2016-10-08 11:06] LABS: MEAN CELL VOLUME 90.6 FL (80.0-100.0); MEAN CORPUSCULAR HEMOGLOBIN 30.9 PG (27.0-34.0); MEAN CORPUSCULAR HGB CONC 34.1 % (32.0-36.0); PLATELET COUNT 153 TH/MM3 (150-450); RED CELL DISTRIBUTION WIDTH 13.9 % (11.6-17.2); REVIEW FLAG FINAL; WHITE BLOOD COUNT 5.2 TH/MM3 (4.0-11.0)
[2016-10-08] MEDS: MIDAZOLAM 100 MG/ML INJ 100 ML IV SCH (12:41)
[2016-10-08] MEDS: NICOTINE 14 MG/24 HR PATCH T-DERMAL SCH (12:42)
[2016-10-08 13:44] LABS: BLOOD, URINE NEG (NEG); GLUCOSE,URINE NEG (NEG); KETONE, URINE NEG (NEG); MUCUS URINE FEW /lpf (OCC); NITRITE,URINE NEG (NEG); PH, URINE 6.5 (5.0-8.5); URINE COLOR YELLOW (YELLW/STRAW)
[2016-10-08 13:49] LABS: COMMENT (UR) CATH-CULT NOT IND; CULTURE IF INDICATED CATH CULTURE NOT IND
--- NOTE | 2016-10-08 14:30 | EKG ---
Date Performed: 10/07/2016 Time Performed: 17:46:54 PTAGE: 61 years EKG: SINUS BRADYCARDIA BORDERLINE ECG Since the prior tracing, minimal nonspecific T wave change s have resolved, sinus bradycardia is new. PREVIOUS TRACING : 08/06/2016 14.17 DOCTOR: Lory Weiner Interpretating Date/Time 10/08/2016 14:28:46
[2016-10-08] MEDS: ATORVASTATIN 80 MG TAB PO SCH (19:59)
[2016-10-08] MEDS: ACETAMINOPHEN 325 MG TAB PO PRN (23:07)
[2016-10-09] VITALS (18 sets, daily range): BP systolic 91–185; BP diastolic 50–84; PULSE 22–84; RESP 14–18; TEMP 98.8–101.8; O2SAT 92–100
[2016-10-09] MEDS: RESP: ALBUTEROL 2.5 MG/IPRATROPIUM 0.5 MG NEB (SCH) INH ×4 (03:14→21:54)
[2016-10-09] MEDS: CHLORHEXIDINE GLUCONATE 2 % 1 PACK (2 CLOTHS) TOP SCH ×2 (03:42→22:42)
--- NOTE | 2016-10-09 05:29 | RADRPT ---
EXAM DATE/TIME: 10/09/2016 04:12 [place] COMPARISON: CHEST SINGLE AP, October 07, 2016, 12:34. INDICATIONS : Respiratory distress. MEDICAL HISTORY : Seizures. Hypertension. Cardiovascular disease. SURGICAL HISTORY : Tubal ligation. ENCOUNTER: Subsequent ACUITY: 3 days PAIN SCORE: Non-responsive. LOCATION: Bilateral chest FINDINGS: A single view of the chest demonstrates developing right basilar opacity. Left lung is clear. Heart n ormal in size. Endotracheal tube and nasogastric tube are unchanged. The cardiomediastinal contours a re unremarkable. Osseous structures are intact. CONCLUSION: Developing right basilar opacity, could be atelectasis or infiltrate. Chris Cotto MD on October 09, 2016 at 5:27 Board Certified Radiologist. This report was verified electronically.
[2016-10-09] MEDS: INSULIN NovoLIN REGULAR SUPPLEMENTAL SCALE SQ SCH ×4 (05:35→21:00)
[2016-10-09 05:51] LABS: HEMATOCRIT 40.2 % (35.0-46.0); MEAN CELL VOLUME 90.9 FL (80.0-100.0); MEAN CORPUSCULAR HEMOGLOBIN 30.1 PG (27.0-34.0); MEAN CORPUSCULAR HGB CONC 33.1 % (32.0-36.0); PLATELET COUNT 163 TH/MM3 (150-450); RED BLOOD COUNT 4.42 MIL/MM3 (4.00-5.30); RED CELL DISTRIBUTION WIDTH 13.7 % (11.6-17.2); REVIEW FLAG FINAL; WHITE BLOOD COUNT 6.3 TH/MM3 (4.0-11.0)
[2016-10-09] MEDS: MIDAZOLAM 100 MG/ML INJ 100 ML IV SCH (05:59)
--- NOTE | 2016-10-09 06:00 | MB ---
cc: RA PEDRITOSEB DATE OF CONSULTATION 10/08/2016 REASON FOR CONSULTATION Seizures. HISTORY OF PRESENT ILLNESS The patient is intubated and sedated, hence the medical history is obtained from the records, EMR and nurse. The patient presented to the [facility] emergency department with status epilepticus coming from assisted living facility. The patient has a past medical history of seizures and currently on four different antiepileptics - Dilantin, Vimpat, Keppra and Topamax. She was recently discharged from [facility] on 08/09/2016. En route to the hospital, the EMS give 4 mg IM Ativan. However, seizures continued and she had multiple seizures described by the EMS as grand mall occurred in the ambulance. Upon arrival to the emergency room, the patient was noted to be hypertensive and continued to have seizures. The patient was intubated for airway protection by the ED and Dilantin level was obtained and it showed a level therapeutic at 13.7. REVIEW OF SYSTEMS Unable to obtain but from the medical records a 12-point review of systems is negative except for what is stated in the HPI. PAST MEDICAL HISTORY 1. Arthritis. 2. Bipolar disorder. 3. Depression. 4. Hyperlipidemia. 5. Coronary artery disease. 6. Stroke with right-sided weakness. 7. Diminished hearing. 8. Irritable bowel syndrome. 9. Dementia. 10. Schizoaffective. 11. Seizures. PAST SURGICAL HISTORY 1. Bilateral ear surgery. 2. Tubal ligation. 3. Oral surgery for TMJ. ALLERGIES ARIPIPRAZOLE. MEDICATIONS 1. Topamax 50 mg twice. 2. Symbicort. 3. Phenytoin extended-release 200 mg twice daily. 4. Vitamin E. 5. Folate 500 mg three times daily. 6. Trazodone. 7. Protonix. 8. Metoprolol. 9. Lisinopril. 10. Keppra 1000 t.i.d. 11. Donepezil 10 mg. 12. Aspirin. FAMILY HISTORY Noncontributory. SOCIAL HISTORY Lives in assisted living. PHYSICAL EXAMINATION GENERAL: Sedated, intubated female HEENT: Atraumatic, normocephalic. Pupils equal, round. No gaze deviation. NECK: Trachea midline. No JVD. CARDIOVASCULAR: Normal rate and rhythm. RESPIRATORY: Clear to auscultation. MUSCULOSKELETAL: No clubbing, cyanosis or edema. NEUROLOGIC: Vented, sedated. No gaze deviation. Pupils 1-2 cm, reactive. Plantars bilaterally upgoing. LABORATORY DATA - White blood cells 4.8, hemoglobin 15.8, MCV 92.3. Sodium 131, potassium 4.4, anion gap 12, BUN 7, creatinine 1.03, calcium 8.4. DIAGNOSTIC IMAGING - CT scan with no acute disease. DIAGNOSTIC IMPRESSION 1. Status epilepticus. 2. Seizure disorder. 3. History of stroke. 4. Dementia. 5. History of crack cocaine use. 6. History of ethanol abuse. PLAN 1. Neuro checks hourly. 2. Obtain Levetiracetam level. 3. Obtain Phenytoin level 3. Continue Dilantin extended release 200 mg twice daily. 4. Change Vimpat to 150 mg twice daily. Ideally twice daily rather than three times daily dosing. 5. Continue Keppra 1000 3 times. 6. Topamax 50 mg twice daily, not certain whether this is due to is for antiseizure or used for other reasons. 7. Seizure precautions. 8. Ativan for seizures lasting for more than 2 minutes 9. DVT prophylaxis. 10. EEG. Thank you for the opportunity to participate in the care of your patient. MD ALFREDO Smith/AZALEA /9:08 PM /5:41 AM NIK
[2016-10-09] MEDS: fentaNYL DRIP 250 ML IV SCH (06:01)
[2016-10-09] MEDS: HEPARIN SODIUM - SQ 10,000 UNITS/ML VIAL SQ SCH ×2 (06:01→18:50)
[2016-10-09] MEDS: DOCUSATE SODIUM 100 MG/10 ML UDC G-TUBE SCH ×2 (06:01→18:49)
[2016-10-09 06:09] LABS: BICARBONATE 28.1 MEQ/L (21.0-32.0); POTASSIUM 4.1 MEQ/L (3.5-5.1)
[2016-10-09] MEDS: DOCUSATE SODIUM 100 MG/10 ML UDC PO SCH ×2 (08:47→22:39)
[2016-10-09] MEDS: ASPIRIN EC 81 MG TABEC PO SCH (08:47)
[2016-10-09] MEDS: CHLORHEXIDINE 0.12% (ORAL KIT) 15 ML CUP MT SCH ×2 (08:47→20:00)
[2016-10-09] MEDS: FOLIC ACID 1 MG TAB PO SCH (08:47)
[2016-10-09] MEDS: MULTIVITAMINS/MINERALS THERAPEUTIC TAB PO SCH (08:47)
[2016-10-09] MEDS: PANTOPRAZOLE SODIUM 40 MG VIAL IV SCH (08:47)
[2016-10-09] MEDS: METOPROLOL TARTRATE 50 MG TAB PO SCH ×2 (08:48→19:42)
[2016-10-09] MEDS: SENNOSIDES SYRUP 8.8 MG/5 ML CUP PO SCH (08:48)
[2016-10-09] MEDS: levETIRAcetam 500 MG TAB PO SCH ×3 (08:48→18:00)
[2016-10-09] MEDS: NICOTINE 14 MG/24 HR PATCH T-DERMAL SCH (08:48)
[2016-10-09] MEDS: TOPIRAMATE 25 MG TAB PO SCH ×2 (08:48→22:41)
[2016-10-09] MEDS: PHENYTOIN SODIUM 100 MG CAP PO SCH ×2 (08:48→22:41)
[2016-10-09] MEDS: REMOVE OLD PATCH T-DERMAL SCH (08:48)
[2016-10-09] MEDS: CITALOPRAM HYDROBROMIDE 40 MG TAB PO SCH (08:49)
[2016-10-09] MEDS: BUDESONIDE-FORMOTEROL 160/4.5 MCG INHALER INH SCH ×2 (08:49→21:55)
[2016-10-09] MEDS: ARTIFICIAL TEARS OPTH SOLN 15 ML BTL EACH EYE SCH ×3 (08:49→18:00)
[2016-10-09] MEDS: TIOTROPIUM BROMIDE 18 MCG INH INH SCH (08:49)
[2016-10-09] MEDS ORDERED: LACOSAMIDE INJ 150 MG in SODIUM CHLORIDE 0.9% INJ 100 ML IV SCH (09:00)
[2016-10-09] MEDS: LORazepam 2 MG/ML VIAL IV PUSH PRN (09:46)
[2016-10-09] MEDS ORDERED: PHENYTOIN INJ 250 MG/5 ML VIAL IV ONE (10:45)
[2016-10-09] MEDS ORDERED: PHENYTOIN INJ 1,000 MG in SODIUM CHLORIDE 0.9% INJ 100 ML IV ONE (11:15)
[2016-10-09] MEDS: SODIUM CHLOR 0.9% 1000 ML INJ 1,000 ML IV SCH ×2 (14:46→22:42)
--- NOTE | 2016-10-09 15:15 | HHI.CCPN ---
Subjective Remarks/Hospital Course The patient presented to the ED with status epilepticus from her assisted living facility. This patient has significant seizure history and is on 4 different antiepileptics, recently discharged from [facility] 08/09/2016. In route to the hospital EMS gave 4 mg IM Ativan.The seizures continued. She had multiple seizures described as grand mal by paramedics in the ambulance. The patient upon admission to ED the patient was noted to be hypertensive and continued to have seizures, the patient was intubated for airway protection by ED staff and given 2 mg of Ativan IV. The patient was then placed on a propofol infusion. , neurologist was consulted. Dilantin level was obtained .Critical care medicine is consulted for ventilatory management. Subjective 10/08: Afebrile. Upon admission to ICU yesterday afternoon the patient was noted to have 1 seizure, patient received Ativan. The patient was then placed on a Versed and fentanyl infusion. No subsequent seizures since admission yesterday afternoon. Patient's antiepileptic medications have been reinstituted. The patient remains sedated and intubated, will perform a sedation vacation today. Neurology has been called consulted per ED, Dr. Zamora awaiting recommendations. 10/09: EEG performed showing spikes subcortical seizures, Dilantin loaded IV this a.m., per Dr. Álvarez. Sedation vacation obtained revealing GCS of 11 T. Objective Vital Signs Date Time Temp Pulse Resp B/P Pulse Ox O2 Delivery O2 Flow Rate FiO2 10/09/16 14:00 55 10/09/16 12:57 97 40 10/09/16 12:00 100.2 14 107/54 10/07/16 14:35 Ventilator 10/07/16 12:15 15 Intake and Output 10/08/16 10/08/16 10/09/16 08:00 16:00 00:00 Intake Total 634 ml 901 ml 847 ml Output Total 600 ml 1000 ml 650 ml Balance 34 ml -99 ml 197 ml Result Diagram: 10/09/16 0515 10/09/16 0515 Other Results Microbiology Date/Time Procedure Status Source Growth 10/07/16 14:28 Urine Culture - Final Complete Urine Catheterized Urine NO GROWTH IN 48 HOURS. Imaging Last Impressions Head CT 10/07/16 0000 Signed Impressions: Service Date/Time: Friday, October 07, 2016 12:58 - CONCLUSION: No acute disease. Mattie Bourgeois MD Chest X-Ray 10/07/16 0000 Signed Impressions: Service Date/Time: Friday, October 07, 2016 12:34 - CONCLUSION: Interval intubation and placement of a gastric tube which appear appropriate position. Stable appearance of the lungs consistent with emphysema. Mattie Buorgeois MD Objective Remarks GENERAL: Critically ill appearing sedated and intubated female. SKIN: Warm and dry. HEAD: Atraumatic. Normocephalic. EYES: Pupils equal and round. No scleral icterus. No injection or drainage. ENT: No nasal bleeding or discharge. Mucous membranes pink and moist. NECK: Trachea midline. No JVD. CARDIOVASCULAR: Normal rate, regular rhythm. RESPIRATORY: No accessory muscle use. Clear to auscultation. Breath sounds equal bilaterally. GASTROINTESTINAL: Abdomen soft, non-tender, nondistended. No guarding. MUSCULOSKELETAL: Extremities without clubbing, cyanosis, or edema. No obvious deformities. NEUROLOGICAL: RASS -2. Intubated and sedated. A/P Assessment and Plan Plan by systems: Neurologic: Status epilepticus Seizure disorder Major depression disorder History of TIA-right carotid artery History of CVA with short-term memory loss Schizoaffective disorder History of crack cocaine use TMJ disorder History of EtOH abuse Patient intubated and sedated, currently Versed and fentanyl infusion-will hold and assess neuro status Patient's home meds include Topamax, Vimpat, Keppra, Dilantin. Continue home med Donepizil 10 mg twice a day,home medication. Patient also on atorvastatin and aspirin Neurology consulted Dr. Álvarez 08/08/16EEG abnormality right mid temporal lobe which is epileptiform. 08/06/16-MRI-no acute findings 10/07/16 CT brain-no acute disease 10/07/16-Dilantin level 13.7 Monitor for signs of alcohol withdrawal, Ativan when necessary Folate1 mg daily and multivitamin daily Sedation vacation per protocol daily 10/09 Repeat continuous [id number] results Respiratory: COPD Tobacco abuse Hypoxic Respiratory Failure Continue Spiriva, and Symbicort (home med) Duo nebs every 6 hours scheduled, and every 2 hours when necessary Nicotine patch medium dose 7 days Mechanical ventilation settings 500/14/5/0.40 10/07/16-CXR stable appearance of lungs with emphysema Ventilator bundle Maintain head of bed greater than 30 CPAP trials as tolerated Cardiovascular: Hyperlipidemia Hypertension Continue atorvastatin, aspirin 81 mg/day, and metoprolol 50 mg twice a day Obtain LFTs Renal: Chronic hyponatremia Renal insufficiency Monitor BMP, Discontinue normal saline at 84cc/hour Sodium level 131, similar to levels on last admission 08/2016 continue to monitor -- Strict I/Os FEN/GI: Hyperlipidemia Continue atorvastatin Obtain AST slight elevation 52, ALT- WNL Protonix 40 mg daily Heme/ID: Leukocytosis F/U blood and urine cultures Monitor CBC. WBC 12 Endocrine: Glucose monitoring per ICU protocol -- SSI Prophylaxis: GI Prophylaxis Protonix DVT Prophylaxis -- SCDs Heparin 5000 units subcutaneous every 12 hours Lines: Peripheral IVs. Central line if indicated Discussed with HYDROGRAPHIC SURVEYOR at bedside Dispo: This patient remains critically ill with one or more organ systems which are or may become a threat to life. I have spent in excess of 33 minutes discontinuously in the care and management of this patient. This time is exclusive of procedures, and includes, but is not limited to, evaluation of the patient, review of the medical record, discussions with family, consultants, nursing staff, or respiratory therapy, and documentation in the medical record. Physician Kellen Johnson MD Oct 09, 2016 15:15
[2016-10-09] MEDS ORDERED: PHENYTOIN INJ 100 MG/2 ML VIAL IV PUSH ONE (21:00)
--- NOTE | 2016-10-09 21:08 | HHI.PR ---
Review/Management Diagnosis 1. Status epilepticus. 2. Seizure disorder. 3. History of stroke. 4. Dementia. 5. History of crack cocaine use. 6. History of ethanol abuse. Plan - Neuro checks 1 hourly. - Given the abnormal contineous EEG, loaded with 1gm Phenytoin - Change Dilantin to iv , 100mg am, 100mg mid-day, 200mg pm - Vimpat 150mg Q12h iv - Change Keppra to IV, at 1000 gm Q8h - Obtain Levetiracetam level. - Obtain Phenytoin level - Topamax 50 mg twice daily, not certain whether this is due to is for antiseizure or used for other reasons. - Seizure precautions. - Ativan for seizures lasting for more than 2 minutes - DVT prophylaxis. - EEG. Diagnosis/Plan: Subjective Subjective Comments Sedated and vented EEG monitoring with abnormal spike and wave and PLEDs Loaded with 1gm Dilantin Phenytoin level is therapeutic 12.1 [10-20] Active Medications Current Medications Medications (Trade) Dose Ordered Sig/Elizabet Route Start Time Stop Time Status Last Admin Sodium Chloride 2 ml 2 ml UNSCH PRN IVF 10/07/16 12:45 10/08/16 08:29 Propofol 100 ml @ 0 mls/hr TITRATE IV 10/07/16 13:45 10/07/16 13:48 (NS 1000 ml Inj) 1,000 ml @ 84 mls/hr [id number] IV 10/07/16 14:24 10/09/16 14:46 (Tylenol) 650 mg Q6H PRN PO 10/07/16 14:30 10/08/16 23:07 (Protonix Inj) 40 mg DAILY IV 10/08/16 09:00 10/09/16 08:47 (Tears Naturale Opth Soln) 1 drop TID EACH EYE 10/07/16 18:00 (Zofran Inj) 4 mg Q6H PRN IV 10/07/16 14:30 (Colace Liq) 100 mg Q12H G-TUBE 10/07/16 18:00 10/09/16 18:49 (Dulcolax Supp) 10 mg DAILY PRN RECTAL 10/07/16 14:30 (Heparin Inj) 5,000 units Q12H SQ 10/07/16 18:00 10/09/16 18:50 Miscellaneous Information 1 [id number] XX 10/07/16 14:30 (Chlorhexidine 2% Cloth) 3 pack Taper DAILY@04 TOP 10/08/16 04:00 10/04/17 03:59 10/09/16 03:42 Chlorhexidine Gluconate 3 pack 3 pack UNSCH PRN TOP 10/07/16 14:30 Midazolam HCl 100 ml @ 0 mls/hr TITRATE IV 10/07/16 14:30 10/09/16 05:59 Fentanyl Citrate 250 ml @ 0 mls/hr TITRATE IV 10/07/16 14:30 10/09/16 06:01 Potassium Chloride 100 ml @ 50 mls/hr Q2H PRN IV 10/07/16 14:30 Potassium Chloride 100 ml @ 50 mls/hr Q2H PRN IV 10/07/16 14:30 Potassium Chloride 100 ml @ 25 mls/hr UNSCH PRN IV 10/07/16 14:30 Potassium Chloride 100 ml @ 50 mls/hr Q2H PRN IV 10/07/16 14:30 (Magnesium Sulfate Inj/NS Inj) 100 ml @ 50 mls/hr UNSCH PRN IV 10/07/16 14:30 Magnesium Oxide 800 mg 800 mg UNSCH PRN PO 10/07/16 14:30 (Magnesium Sulfate Inj/NS Inj) 100 ml @ 50 mls/hr UNSCH PRN IV 10/07/16 14:30 Potassium Phosphate 2000 mg 2,000 mg Q4H PRN PO 10/07/16 14:30 (Sodium Phosphate Inj/NS 250 ml Inj) 250 ml @ 42 mls/hr UNSCH PRN IV 10/07/16 14:30 Potassium Phosphate 2000 mg 2,000 mg UNSCH PRN PO/TUBE 10/07/16 14:30 (Potassium Phosphate Inj/NS 250 ml Inj) 260 ml @ 42 mls/hr UNSCH PRN IV 10/07/16 14:30 (Peridex 0.12% Liq) 15 ml BID@08,20 MT 10/07/16 20:00 10/09/16 08:47 (Ecotrin Ec) 81 mg DAILY PO 10/08/16 09:00 10/09/16 08:47 (Lipitor) 80 mg HS PO 10/07/16 21:00 10/08/16 19:59 (Symbicort 160-4.5 Inh) 2 puff BID INH 10/07/16 21:00 10/07/16 21:52 (CeleXA) 40 mg DAILY PO 10/08/16 09:00 10/09/16 08:49 (Folate) 1 mg DAILY PO 10/08/16 09:00 10/09/16 08:47 (Keppra) 1,000 mg TID PO 10/07/16 18:00 10/09/16 13:16 (Lopressor) 50 mg BID PO 10/07/16 21:00 10/09/16 08:48 (Dilantin) 200 mg BID PO 10/07/16 21:00 10/09/16 08:48 (Spiriva Inh) 18 mcg DAILY INH 10/08/16 09:00 (Topamax) 50 mg BID PO 10/07/16 21:00 10/09/16 08:48 (Theragran M Tab) 1 tab DAILY PO 10/08/16 09:00 10/09/16 08:47 (Habitrol 14 Mg Patch.24 Hr) 1 patch DAILY T-DERMAL 10/08/16 09:00 10/15/16 09:00 10/09/16 08:48 Miscellaneous Information 1 DAILY T-DERMAL 10/08/16 09:00 10/15/16 09:00 10/09/16 08:48 (D50w (Vial) Inj) 25 ml UNSCH PRN IV PUSH 10/07/16 15:30 (Glucagon Inj) 1 mg UNSCH PRN OTHER 10/07/16 15:30 (Ativan Inj) 2 mg Q2H PRN IV PUSH 10/07/16 16:15 10/09/16 09:46 (Dulcolax Supp) 10 mg DAILY PRN RECTAL 10/08/16 08:45 (Colace Liq) 100 mg Q12HR PO 10/08/16 09:00 10/09/16 08:47 Sennosides 8.8 mg 8.8 mg DAILY PO 10/08/16 09:00 10/09/16 08:48 Levetriacetam 100 ml @ 400 mls/hr Q8H IV 10/09/16 21:00 (Vimpat Inj/NS Inj) 120 ml @ 115 mls/hr Q12HR IV 10/09/16 21:00 (Dilantin Inj) 200 mg ONCE@21 ONCE IV PUSH 10/09/16 21:00 10/09/16 21:01 Allergies Allergies Coded Allergies Aripiprazole (Verified Allergy, Unknown, 10/07/16) Review of Systems Eye: Negative Respiratory: Negative Cardiovascular: Negative Gastrointestinal: Negative Musculoskeletal: Negative All other ROS: ROS reviewed as documented in chart Exam I&O / VS 10/08/16 10/08/16 10/09/16 14:59 22:59 06:59 Intake Total 901 ml 847 ml 722 ml Output Total 1000 ml 650 ml 600 ml Balance -99 ml 197 ml 122 ml Intake IV Total 841 ml 799 ml 722 ml Tube Feeding 48 ml Other 60 ml Output Urine Total 1000 ml 650 ml 600 ml Stool Total 0 ml Vital Signs Date Time Temp Pulse Resp B/P Pulse Ox O2 Delivery O2 Flow Rate FiO2 10/09/16 18:00 56 10/09/16 16:40 99 40 10/09/16 16:00 99.6 22 14 91/50 96 10/09/16 16:00 40 10/09/16 16:00 55 10/09/16 14:00 55 10/09/16 12:57 97 40 10/09/16 12:00 100.2 54 14 107/54 96 10/09/16 12:00 54 10/09/16 12:00 40 10/09/16 10:00 64 10/09/16 09:26 97 40 10/09/16 08:00 98.8 84 18 185/83 100 10/09/16 08:00 40 10/09/16 08:00 73 10/09/16 06:00 69 10/09/16 04:17 92 40 10/09/16 04:00 40 10/09/16 04:00 82 10/09/16 04:00 99.8 81 18 160/84 99 10/09/16 02:00 56 10/09/16 01:22 99 40 10/09/16 00:00 55 10/09/16 00:00 101.8 55 18 169/83 97 10/09/16 00:00 40 10/08/16 22:20 100 40 10/08/16 22:00 64 Exam Comments GENERAL: Sedated, intubated female HEENT: Atraumatic, normocephalic. Pupils equal, round. No gaze deviation. NECK: Trachea midline. No JVD. CARDIOVASCULAR: Normal rate and rhythm. RESPIRATORY: Clear to auscultation. MUSCULOSKELETAL: No clubbing, cyanosis or edema. NEUROLOGIC: Vented, sedated. No gaze deviation. Pupils 1-2 cm, reactive. Plantars bilaterally upgoing. Objective Radiology Results Last 72 hours Impressions Chest X-Ray 10/09/16 0600 Signed Impressions: Service Date/Time: Sunday, October 09, 2016 04:12 - CONCLUSION: Developing right basilar opacity, could be atelectasis or infiltrate. Chris Cotto MD Head CT 10/07/16 0000 Signed Impressions: Service Date/Time: Friday, October 07, 2016 12:58 - CONCLUSION: No acute disease. Mattie Bourgeois MD Chest X-Ray 10/07/16 0000 Signed Impressions: Service Date/Time: Friday, October 07, 2016 12:34 - CONCLUSION: Interval intubation and placement of a gastric tube which appear appropriate position. Stable appearance of the lungs consistent with emphysema. Mattie Bourgeois MD Micro and Labs Laboratory Tests Test 10/09/16 05:15 White Blood Count 6.3 Red Blood Count 4.42 Hemoglobin 13.3 Hematocrit 40.2 Mean Corpuscular Volume 90.9 Mean Corpuscular Hemoglobin 30.1 Mean Corpuscular Hemoglobin 33.1 Concent Red Cell Distribution Width 13.7 Platelet Count 163 Mean Platelet Volume 7.9 Sodium Level 135 Potassium Level 4.1 Chloride Level 101 Carbon Dioxide Level 28.1 Anion Gap 6 Blood Urea Nitrogen 7 Creatinine 0.56 Estimat Glomerular Filtration 109 Rate Random Glucose 98 Calcium Level 7.9 Phosphorus Level 3.8 Magnesium Level 2.0 Phenytoin (Dilantin) Level 12.1 Date/Time Procedure Status Source Growth 10/07/16 19:29 Aerobic Blood Culture - Preliminary Resulted Blood Peripheral NO GROWTH IN 2 DAYS 10/07/16 19:29 Anaerobic Blood Culture - Final Resulted Blood Peripheral ONLY AEROBIC CULTURE ORDERED 10/07/16 14:28 Urine Culture - Final Complete Urine Catheterized Urine NO GROWTH IN 48 HOURS. Agnieszka Álvarez MD Oct 09, 2016 21:08
[2016-10-09] MEDS: LACOSAMIDE INJ 200 MG in SODIUM CHLORIDE 0.9% INJ 100 ML IV SCH (22:39)
[2016-10-09] MEDS: levETIRAcetam 1000 MG INJ 100 ML IV SCH (22:39)
[2016-10-09] MEDS: ATORVASTATIN 80 MG TAB PO SCH (22:41)
[2016-10-10] VITALS (20 sets, daily range): BP systolic 104–128; BP diastolic 55–59; PULSE 54–96; RESP 14–18; TEMP 99–100.5; O2SAT 95–100
[2016-10-10] MEDS: MIDAZOLAM 100 MG/ML INJ 100 ML IV SCH ×3 (02:59→23:21)
[2016-10-10] MEDS: RESP: ALBUTEROL 2.5 MG/IPRATROPIUM 0.5 MG NEB (SCH) INH ×4 (04:15→19:44)
[2016-10-10] MEDS: HEPARIN SODIUM - SQ 10,000 UNITS/ML VIAL SQ SCH ×2 (05:28→16:45)
[2016-10-10] MEDS: DOCUSATE SODIUM 100 MG/10 ML UDC G-TUBE SCH ×2 (05:28→16:45)
[2016-10-10] MEDS: levETIRAcetam 1000 MG INJ 100 ML IV SCH ×3 (05:28→20:57)
--- NOTE | 2016-10-10 06:44 | MG ---
cc: ROSCOE DIXON MD Lab No: [id number] Date: 10/09/2016 : 1955 Sex: F INDICATION A 61-year-old with history of seizures. DESCRIPTION Right-sided PLEDs activity occurring approximately 1 Hz, 20-70 microvolts, strongest activity in the frontal region with background generalized 1-3 Hz delta activity and occasional spindles. Single lead EKG showing sinus rhythm. INTERPRETATION Right hemispheric PLEDs activity. Clinical correlation. Roscoe Dixon MD MG/BT /6:28 AM /6:37 AM MTDD
[2016-10-10] MEDS: INSULIN NovoLIN REGULAR SUPPLEMENTAL SCALE SQ SCH ×4 (06:48→20:57)
[2016-10-10 06:51] LABS: HEMATOCRIT 36.1 % (35.0-46.0); MEAN CELL VOLUME 90.3 FL (80.0-100.0); MEAN CORPUSCULAR HEMOGLOBIN 31.1 PG (27.0-34.0); MEAN CORPUSCULAR HGB CONC 34.5 % (32.0-36.0); PLATELET COUNT 145 TH/MM3 (150-450); RED CELL DISTRIBUTION WIDTH 13.6 % (11.6-17.2); REVIEW FLAG FINAL; WHITE BLOOD COUNT 7.1 TH/MM3 (4.0-11.0)
[2016-10-10 07:02] LABS: BICARBONATE 29.8 MEQ/L (21.0-32.0); MAGNESIUM 1.9 MG/DL (1.5-2.5); POTASSIUM 3.9 MEQ/L (3.5-5.1)
[2016-10-10] MEDS: CHLORHEXIDINE 0.12% (ORAL KIT) 15 ML CUP MT SCH ×2 (08:00→20:56)
[2016-10-10] MEDS: DOCUSATE SODIUM 100 MG/10 ML UDC PO SCH ×2 (08:05→20:56)
[2016-10-10] MEDS: PHENYTOIN SODIUM 100 MG CAP PO SCH ×2 (08:07→20:57)
[2016-10-10] MEDS: PANTOPRAZOLE SODIUM 40 MG VIAL IV SCH (08:07)
[2016-10-10] MEDS: SENNOSIDES SYRUP 8.8 MG/5 ML CUP PO SCH (08:07)
[2016-10-10] MEDS: FOLIC ACID 1 MG TAB PO SCH (08:07)
[2016-10-10] MEDS: levETIRAcetam 500 MG TAB PO SCH ×3 (08:08→16:50)
[2016-10-10] MEDS: METOPROLOL TARTRATE 50 MG TAB PO SCH ×2 (08:08→20:57)
[2016-10-10] MEDS: TOPIRAMATE 25 MG TAB PO SCH ×2 (08:08→20:57)
[2016-10-10] MEDS: MULTIVITAMINS/MINERALS THERAPEUTIC TAB PO SCH (08:08)
[2016-10-10] MEDS: CITALOPRAM HYDROBROMIDE 40 MG TAB PO SCH (08:08)
[2016-10-10] MEDS: ASPIRIN EC 81 MG TABEC PO SCH (08:08)
[2016-10-10] MEDS: REMOVE OLD PATCH T-DERMAL SCH (08:11)
[2016-10-10] MEDS: NICOTINE 14 MG/24 HR PATCH T-DERMAL SCH (08:11)
[2016-10-10] MEDS: LACOSAMIDE INJ 200 MG in SODIUM CHLORIDE 0.9% INJ 100 ML IV SCH ×2 (08:12→20:58)
[2016-10-10] MEDS: TIOTROPIUM BROMIDE 18 MCG INH INH SCH (08:34)
[2016-10-10] MEDS: BUDESONIDE-FORMOTEROL 160/4.5 MCG INHALER INH SCH ×2 (08:34→21:00)
--- NOTE | 2016-10-10 08:47 | HHI.CCPN ---
Subjective Remarks/Hospital Course The patient presented to the ED with status epilepticus from her assisted living facility. This patient has significant seizure history and is on 4 different antiepileptics, recently discharged from [facility] 08/09/2016. In route to the hospital EMS gave 4 mg IM Ativan.The seizures continued. She had multiple seizures described as grand mal by paramedics in the ambulance. The patient upon admission to ED the patient was noted to be hypertensive and continued to have seizures, the patient was intubated for airway protection by ED staff and given 2 mg of Ativan IV. The patient was then placed on a propofol infusion. , neurologist was consulted. Dilantin level was obtained .Critical care medicine is consulted for ventilatory management. Subjective 10/08: Afebrile. Upon admission to ICU yesterday afternoon the patient was noted to have 1 seizure, patient received Ativan. The patient was then placed on a Versed and fentanyl infusion. No subsequent seizures since admission yesterday afternoon. Patient's antiepileptic medications have been reinstituted. The patient remains sedated and intubated, will perform a sedation vacation today. Neurology has been called consulted per ED, Dr. Zamora awaiting recommendations. 10/09: EEG performed showing spikes subcortical seizures, Dilantin loaded IV this a.m., per Dr. Álvarez. Sedation vacation obtained revealing GCS of 11 T. 10/10: Tmax 99.0. Patient has been noted over the past 24 hours to have elevations in the temperature 100.9. Chest x-ray yesterday revealed developing right basilar opacity possibly secondary to aspiration during admission in ED with seizure activity. Plan to initiate empiric antibiotics. The patient continued to have seizures per EEG, medications adjusted and managed with neurologist Dr. Álvarez. Upon sedation vacation the patient remains GCS 11T. Objective Vital Signs Date Time Temp Pulse Resp B/P Pulse Ox O2 Delivery O2 Flow Rate FiO2 10/10/16 08:17 98 40 10/10/16 06:00 68 10/10/16 04:00 99.0 14 115/56 10/07/16 14:35 Ventilator 10/07/16 12:15 15 Intake and Output 10/09/16 10/09/16 10/10/16 08:00 16:00 00:00 Intake Total 722 ml 1092 ml 410 ml Output Total 600 ml 1200 ml 825 ml Balance 122 ml -108 ml -415 ml Result Diagram: 10/10/16 0614 10/10/16 0614 Other Results Microbiology Date/Time Procedure Status Source Growth 10/07/16 14:28 Urine Culture - Final Complete Urine Catheterized Urine NO GROWTH IN 48 HOURS. Imaging Last Impressions Head CT 10/07/16 0000 Signed Impressions: Service Date/Time: Friday, October 07, 2016 12:58 - CONCLUSION: No acute disease. Mattie Bourgeois MD Chest X-Ray 10/07/16 0000 Signed Impressions: Service Date/Time: Friday, October 07, 2016 12:34 - CONCLUSION: Interval intubation and placement of a gastric tube which appear appropriate position. Stable appearance of the lungs consistent with emphysema. Mattie Bourgeois MD Objective Remarks GENERAL: Critically ill appearing sedated and intubated female. SKIN: Warm and dry. HEAD: Atraumatic. Normocephalic. EYES: Pupils equal and round. No scleral icterus. No injection or drainage. ENT: No nasal bleeding or discharge. Mucous membranes pink and moist. NECK: Trachea midline. No JVD. CARDIOVASCULAR: Normal rate, regular rhythm. RESPIRATORY: Mechanical ventilation. Clear to auscultation. Breath sounds equal bilaterally. GASTROINTESTINAL: Abdomen soft, non-tender, nondistended. No guarding. MUSCULOSKELETAL: Extremities without clubbing, cyanosis, or edema. No obvious deformities. NEUROLOGICAL: RASS -2. Intubated and sedated. Urinary Catheter: Yes Hinds insert reason: ICU Pt Getting Diuretics Date of Insertion: Oct 07, 2016 A/P Assessment and Plan Plan by systems: Neurologic: Status epilepticus Seizure disorder Major depression disorder History of TIA-right carotid artery History of CVA with short-term memory loss Schizoaffective disorder History of crack cocaine use TMJ disorder History of EtOH abuse Patient intubated and sedated, currently Versed and fentanyl infusions Patient's home meds include Topamax, Vimpat, Keppra, Dilantin. Continue home med Donepizil 10 mg twice a day,home medication. Patient also on atorvastatin and aspirin Neurology consulted Dr. Álvarez 08/08/16EEG abnormality right mid temporal lobe which is epileptiform. 08/06/16-MRI-no acute findings 10/07/16 CT brain-no acute disease 10/07/16-Dilantin level 13.7 Monitor for signs of alcohol withdrawal, Ativan when necessary Folate1 mg daily and multivitamin daily Sedation vacation per protocol daily 10/09 Repeat continuous [id number] results, management and medication adjustment per neurology, Dr. Álvarez Respiratory: COPD Tobacco abuse Hypoxic Respiratory Failure Continue Spiriva, and Symbicort (home med) Duo nebs every 6 hours scheduled, and every 2 hours when necessary Nicotine patch medium dose 7 days Mechanical ventilation settings 500/14/5/0.40 10/07/16-CXR stable appearance of lungs with emphysema Ventilator bundle Maintain head of bed greater than 30 CPAP trials as tolerated Cardiovascular: Hyperlipidemia Hypertension Continue atorvastatin, aspirin 81 mg/day, and metoprolol 50 mg twice a day Maintain MAP > 65mmHg Renal: Chronic hyponatremia Renal insufficiency Monitor BMP, IV Hep-Lock Sodium level 131, similar to levels on last admission 08/2016 continue to monitor -- Strict I/Os FEN/GI: Hyperlipidemia Continue tube feeds Jevity at 40 cc/hour, no noted residual Continue atorvastatin AST slight elevation 52, ALT- WNL Protonix 40 mg daily Heme/ID: Leukocytosis Possible aspiration pneumonia 10/07-blood and urine cultures-NGTD Monitor CBC. WBC Begin empiric dosing azithromycin 500 mg/24 hours, Zosyn 4.5 g every 6 hours Endocrine: Glucose monitoring per ICU protocol -- SSI Prophylaxis: GI Prophylaxis Protonix DVT Prophylaxis -- SCDs Heparin 5000 units subcutaneous every 12 hours Lines: Peripheral IVs. Central line if indicated Discussed with MINE PRODUCTION ENGINEER at bedside Dispo: This patient remains critically ill with one or more organ systems which are or may become a threat to life. I have spent in excess of 35 minutes discontinuously in the care and management of this patient. This time is exclusive of procedures, and includes, but is not limited to, evaluation of the patient, review of the medical record, discussions with family, consultants, nursing staff, or respiratory therapy, and documentation in the medical record. Physician Kellen Johnson MD Oct 10, 2016 08:47
[2016-10-10] MEDS: ARTIFICIAL TEARS OPTH SOLN 15 ML BTL EACH EYE SCH ×3 (09:00→16:51)
[2016-10-10] MEDS ORDERED: AZITHROMYCIN INJ 500 MG in SODIUM CHLOR 0.9% 250 ML INJ 250 ML IV SCH (09:00)
[2016-10-10] MEDS: PIPERACIL-TAZO 4.5 GM PREMIX 100 ML IV SCH ×3 (09:51→20:56)
[2016-10-10] MEDS: AZITHROMYCIN INJ 500 MG in SODIUM CHLOR 0.9% 250 ML INJ 250 ML IV SCH (09:52)
[2016-10-10] MEDS: SODIUM CHLOR 0.9% 1000 ML INJ 1,000 ML IV SCH (15:24)
[2016-10-10] MEDS: fentaNYL DRIP 250 ML IV SCH (16:45)
--- NOTE | 2016-10-10 19:46 | MG ---
cc: ROSCOE DIXON MD Lab No: [id number] Date: 10/10/16 Age: 61 Sex: F Race: DATE OF : 1955 HISTORY A 61-year-old female with a history of right hemispheric PLEDS, seizure activity. DESCRIPTION Right frontal PLEDS noted again, high voltage 20-60 microvolts at about 1 Hz with underlying combination of theta and mild delta frequencies. Single-lead EKG showing sinus rhythm. INTERPRETATION Persistent right hemispheric PLEDS with slight increase in voltage. Clinical correlation. MD YENNI Wilson/BJF /5:30 PM /7:35 PM
[2016-10-10] MEDS: ATORVASTATIN 80 MG TAB PO SCH (20:57)
[2016-10-11] VITALS (19 sets, daily range): BP systolic 97–153; BP diastolic 52–72; PULSE 59–96; RESP 14–24; TEMP 98.2–100; O2SAT 97–100
[2016-10-11] MEDS: SODIUM CHLOR 0.9% 1000 ML INJ 1,000 ML IV SCH (00:27)
--- NOTE | 2016-10-11 00:36 | HHI.PR ---
Review/Management Diagnosis 1. Status epilepticus. 2. Seizure disorder. 3. History of stroke. 4. Dementia. 5. History of crack cocaine use. 6. History of ethanol abuse. Plan - Neuro checks 1 hourly. - Dilantin,100mg am, 100mg mid-day, 200mg pm - Vimpat 150mg Q12h iv - Keppra IV, 1000 gm Q8h - Obtain Phenytoin level - Topamax 50 mg twice daily, not certain whether this is due to is for antiseizure or used for other reasons. - Seizure precautions. - Ativan for seizures lasting for more than 2 minutes - DVT prophylaxis. Diagnosis/Plan: Subjective Subjective Comments No acute events reported Patient opens eyes spontaneously Dilantin level is supra-therapeutic 21, will repeat Dilantin level Follow up EEG revealed persistent PLEDS on the right side Active Medications Current Medications Medications (Trade) Dose Ordered Sig/Elizabet Route Start Time Stop Time Status Last Admin Sodium Chloride 2 ml 2 ml UNSCH PRN IVF 10/07/16 12:45 10/08/16 08:29 Propofol 100 ml @ 0 mls/hr TITRATE IV 10/07/16 13:45 10/07/16 13:48 (NS 1000 ml Inj) 1,000 ml @ 84 mls/hr [id number] IV 10/07/16 14:24 10/11/16 00:27 (Tylenol) 650 mg Q6H PRN PO 10/07/16 14:30 10/08/16 23:07 (Protonix Inj) 40 mg DAILY IV 10/08/16 09:00 10/10/16 08:07 (Tears Naturale Opth Soln) 1 drop TID EACH EYE 10/07/16 18:00 (Zofran Inj) 4 mg Q6H PRN IV 10/07/16 14:30 (Colace Liq) 100 mg Q12H G-TUBE 10/07/16 18:00 10/10/16 16:45 (Dulcolax Supp) 10 mg DAILY PRN RECTAL 10/07/16 14:30 (Heparin Inj) 5,000 units Q12H SQ 10/07/16 18:00 10/10/16 16:45 Miscellaneous Information 1 [id number] XX 10/07/16 14:30 (Chlorhexidine 2% Cloth) 3 pack Taper DAILY@04 TOP 10/08/16 04:00 10/04/17 03:59 10/09/16 22:42 Chlorhexidine Gluconate 3 pack 3 pack UNSCH PRN TOP 10/07/16 14:30 Midazolam HCl 100 ml @ 0 mls/hr TITRATE IV 10/07/16 14:30 10/10/16 23:21 Fentanyl Citrate 250 ml @ 0 mls/hr TITRATE IV 10/07/16 14:30 10/10/16 16:45 Potassium Chloride 100 ml @ 50 mls/hr Q2H PRN IV 10/07/16 14:30 Potassium Chloride 100 ml @ 50 mls/hr Q2H PRN IV 10/07/16 14:30 Potassium Chloride 100 ml @ 25 mls/hr UNSCH PRN IV 10/07/16 14:30 Potassium Chloride 100 ml @ 50 mls/hr Q2H PRN IV 10/07/16 14:30 (Magnesium Sulfate Inj/NS Inj) 100 ml @ 50 mls/hr UNSCH PRN IV 10/07/16 14:30 Magnesium Oxide 800 mg 800 mg UNSCH PRN PO 10/07/16 14:30 (Magnesium Sulfate Inj/NS Inj) 100 ml @ 50 mls/hr UNSCH PRN IV 10/07/16 14:30 Potassium Phosphate 2000 mg 2,000 mg Q4H PRN PO 10/07/16 14:30 (Sodium Phosphate Inj/NS 250 ml Inj) 250 ml @ 42 mls/hr UNSCH PRN IV 10/07/16 14:30 Potassium Phosphate 2000 mg 2,000 mg UNSCH PRN PO/TUBE 10/07/16 14:30 (Potassium Phosphate Inj/NS 250 ml Inj) 260 ml @ 42 mls/hr UNSCH PRN IV 10/07/16 14:30 (Peridex 0.12% Liq) 15 ml BID@08,20 MT 10/07/16 20:00 10/10/16 20:56 (Ecotrin Ec) 81 mg DAILY PO 10/08/16 09:00 10/10/16 08:08 (Lipitor) 80 mg HS PO 10/07/16 21:00 10/10/16 20:57 (Symbicort 160-4.5 Inh) 2 puff BID INH 10/07/16 21:00 10/10/16 21:00 (CeleXA) 40 mg DAILY PO 10/08/16 09:00 10/10/16 08:08 (Folate) 1 mg DAILY PO 10/08/16 09:00 10/10/16 08:07 (Keppra) 1,000 mg TID PO 10/07/16 18:00 10/10/16 08:08 (Lopressor) 50 mg BID PO 10/07/16 21:00 10/10/16 20:57 (Dilantin) 200 mg BID PO 10/07/16 21:00 10/10/16 20:57 (Spiriva Inh) 18 mcg DAILY INH 10/08/16 09:00 (Topamax) 50 mg BID PO 10/07/16 21:00 10/10/16 20:57 (Theragran M Tab) 1 tab DAILY PO 10/08/16 09:00 10/10/16 08:08 (Habitrol 14 Mg Patch.24 Hr) 1 patch DAILY T-DERMAL 10/08/16 09:00 10/15/16 09:00 10/10/16 08:11 Miscellaneous Information 1 DAILY T-DERMAL 10/08/16 09:00 10/15/16 09:00 10/10/16 08:11 (D50w (Vial) Inj) 25 ml UNSCH PRN IV PUSH 10/07/16 15:30 (Glucagon Inj) 1 mg UNSCH PRN OTHER 10/07/16 15:30 (Ativan Inj) 2 mg Q2H PRN IV PUSH 10/07/16 16:15 10/09/16 09:46 (Dulcolax Supp) 10 mg DAILY PRN RECTAL 10/08/16 08:45 (Colace Liq) 100 mg Q12HR PO 10/08/16 09:00 10/10/16 20:56 Sennosides 8.8 mg 8.8 mg DAILY PO 10/08/16 09:00 10/10/16 08:07 Levetriacetam 100 ml @ 400 mls/hr Q8H IV 10/09/16 21:00 10/10/16 20:57 Lacosamide 200 mg/ Sodium Chloride 120 ml @ 115 mls/hr Q12HR IV 10/09/16 21:00 10/10/16 20:58 Piperacillin Sod/ Tazobactam Sod 100 ml @ 200 mls/hr Q6H IV 10/10/16 10:00 10/10/16 20:56 (Zithromax Inj/ NS 250 ml Inj) 250 ml @ 250 mls/hr Q24H IV 10/10/16 11:00 10/10/16 09:52 Allergies Allergies Coded Allergies Aripiprazole (Verified Allergy, Unknown, 10/07/16) Review of Systems Eye: Negative Respiratory: Negative Cardiovascular: Negative Gastrointestinal: Negative Musculoskeletal: Negative All other ROS: ROS reviewed as documented in chart Exam I&O / VS 10/10/16 10/10/16 10/11/16 15:00 23:00 07:00 Intake Total 1866 ml 977 ml Output Total 450 ml 240 ml Balance 1416 ml 737 ml Intake Oral 450 ml 0 ml IV Total 810 ml 681 ml Tube Feeding 406 ml 236 ml Other 200 ml 60 ml Output Urine Total 450 ml 240 ml # Bowel Movements 0 Vital Signs Date Time Temp Pulse Resp B/P Pulse Ox O2 Delivery O2 Flow Rate FiO2 10/11/16 00:00 59 10/11/16 00:00 40 10/11/16 00:00 98.7 59 14 97/53 100 10/10/16 22:09 98 40 10/10/16 22:00 72 10/10/16 20:00 40 10/10/16 20:00 100.5 80 18 117/58 97 10/10/16 20:00 80 10/10/16 19:44 97 40 10/10/16 18:00 96 10/10/16 16:00 99.8 73 14 128/59 95 10/10/16 16:00 40 10/10/16 16:00 77 10/10/16 15:52 96 40 10/10/16 14:00 58 10/10/16 12:44 96 40 10/10/16 12:00 61 10/10/16 12:00 40 10/10/16 12:00 99.5 61 14 118/57 96 10/10/16 10:00 54 10/10/16 08:17 98 40 10/10/16 08:00 66 10/10/16 08:00 40 10/10/16 08:00 99.8 67 14 107/55 99 10/10/16 06:00 68 10/10/16 04:15 98 40 10/10/16 04:00 40 10/10/16 04:00 99.0 76 14 115/56 95 10/10/16 04:00 76 10/10/16 02:00 74 10/10/16 01:40 100 40 10/10/16 01:26 100 40 Exam Comments GENERAL: Sedated, intubated HEENT: Atraumatic, normocephalic. Pupils equal, round. No gaze deviation. NECK: Trachea midline. No JVD. CARDIOVASCULAR: Normal rate and rhythm. RESPIRATORY: Clear to auscultation. MUSCULOSKELETAL: No clubbing, cyanosis or edema. NEUROLOGIC: Vented, sedated. No gaze deviation. Pupils 1-2 cm, reactive. Plantars bilaterally upgoing. Objective Radiology Results Last 72 hours Impressions Chest X-Ray 10/09/16 0600 Signed Impressions: Service Date/Time: Sunday, October 09, 2016 04:12 - CONCLUSION: Developing right basilar opacity, could be atelectasis or infiltrate. Chris Cotto MD Micro and Labs Laboratory Tests Test 10/10/16 06:14 White Blood Count 7.1 Red Blood Count 4.00 Hemoglobin 12.4 Hematocrit 36.1 Mean Corpuscular Volume 90.3 Mean Corpuscular Hemoglobin 31.1 Mean Corpuscular Hemoglobin 34.5 Concent Red Cell Distribution Width 13.6 Platelet Count 145 Mean Platelet Volume 8.0 Sodium Level 136 Potassium Level 3.9 Chloride Level 102 Carbon Dioxide Level 29.8 Anion Gap 4 Blood Urea Nitrogen 6 Creatinine 0.48 Estimat Glomerular Filtration 131 Rate Random Glucose 155 Calcium Level 7.8 Phosphorus Level 2.8 Magnesium Level 1.9 Phenytoin (Dilantin) Level 21.0 Date/Time Procedure Status Source Growth 10/07/16 19:29 Aerobic Blood Culture - Preliminary Resulted Blood Peripheral NO GROWTH IN 3 DAYS 10/07/16 19:29 Anaerobic Blood Culture - Final Resulted Blood Peripheral ONLY AEROBIC CULTURE ORDERED 10/07/16 14:28 Urine Culture - Final Complete Urine Catheterized Urine NO GROWTH IN 48 HOURS. Agnieszka Álvarez MD Oct 11, 2016 00:36
[2016-10-11] MEDS: PIPERACIL-TAZO 4.5 GM PREMIX 100 ML IV SCH ×4 (02:28→20:13)
[2016-10-11] MEDS: RESP: ALBUTEROL 2.5 MG/IPRATROPIUM 0.5 MG NEB (SCH) INH ×3 (03:18→15:54)
[2016-10-11] MEDS: CHLORHEXIDINE GLUCONATE 2 % 1 PACK (2 CLOTHS) TOP SCH ×2 (04:00→20:14)
--- NOTE | 2016-10-11 04:40 | RADRPT ---
EXAM DATE/TIME: 10/11/2016 02:50 [place] COMPARISON: CHEST SINGLE AP, October 09, 2016, 4:12. INDICATIONS : Shortness of breath, possible pulmonary disease. MEDICAL HISTORY : Hypertension. Cardiovascular disease. Seizures SURGICAL HISTORY : Tubal ligation. ENCOUNTER: Subsequent ACUITY: 4 - 6 days PAIN SCORE: Non-responsive. LOCATION: Bilateral chest FINDINGS: A single view of the chest demonstrates right basilar airspace disease. Minimal density left lower lo be. Endotracheal tube and nasogastric tube unchanged. The cardiomediastinal contours are unremarkable . Osseous structures are intact. CONCLUSION: 1. Worsening airspace disease in the right lower lobe and minimal density left lower lobe. Chris Cotto MD on October 11, 2016 at 4:38 Board Certified Radiologist. This report was verified electronically.
[2016-10-11] MEDS: levETIRAcetam 1000 MG INJ 100 ML IV SCH ×3 (05:37→19:57)
[2016-10-11] MEDS: DOCUSATE SODIUM 100 MG/10 ML UDC G-TUBE SCH ×2 (05:37→16:44)
[2016-10-11] MEDS: HEPARIN SODIUM - SQ 10,000 UNITS/ML VIAL SQ SCH ×3 (05:38→16:43)
[2016-10-11 05:48] LABS: HEMATOCRIT 34.2 % (35.0-46.0); MEAN CORPUSCULAR HEMOGLOBIN 30.8 PG (27.0-34.0); MEAN CORPUSCULAR HGB CONC 33.9 % (32.0-36.0); PLATELET COUNT 137 TH/MM3 (150-450); RED BLOOD COUNT 3.76 MIL/MM3 (4.00-5.30); RED CELL DISTRIBUTION WIDTH 13.7 % (11.6-17.2); REVIEW FLAG FINAL; WHITE BLOOD COUNT 5.1 TH/MM3 (4.0-11.0)
[2016-10-11 06:06] LABS: BICARBONATE 28.3 MEQ/L (21.0-32.0); MAGNESIUM 1.8 MG/DL (1.5-2.5); POTASSIUM 3.9 MEQ/L (3.5-5.1)
[2016-10-11] MEDS: INSULIN NovoLIN REGULAR SUPPLEMENTAL SCALE SQ SCH ×4 (06:07→21:00)
[2016-10-11] MEDS: SENNOSIDES SYRUP 8.8 MG/5 ML CUP PO SCH (08:02)
[2016-10-11] MEDS: DOCUSATE SODIUM 100 MG/10 ML UDC PO SCH ×2 (08:02→20:18)
[2016-10-11] MEDS: NICOTINE 14 MG/24 HR PATCH T-DERMAL SCH (08:02)
[2016-10-11] MEDS: REMOVE OLD PATCH T-DERMAL SCH (08:02)
[2016-10-11] MEDS: CITALOPRAM HYDROBROMIDE 40 MG TAB PO SCH (08:03)
[2016-10-11] MEDS: TOPIRAMATE 25 MG TAB PO SCH ×2 (08:03→20:08)
[2016-10-11] MEDS: MULTIVITAMINS/MINERALS THERAPEUTIC TAB PO SCH (08:03)
[2016-10-11] MEDS: FOLIC ACID 1 MG TAB PO SCH (08:03)
[2016-10-11] MEDS: PHENYTOIN SODIUM 100 MG CAP PO SCH ×2 (08:03→20:07)
[2016-10-11] MEDS: METOPROLOL TARTRATE 50 MG TAB PO SCH ×2 (08:04→20:01)
[2016-10-11] MEDS: ASPIRIN EC 81 MG TABEC PO SCH (08:04)
[2016-10-11] MEDS: PANTOPRAZOLE SODIUM 40 MG VIAL IV SCH (08:09)
[2016-10-11] MEDS: levETIRAcetam 500 MG TAB PO SCH ×3 (08:13→16:49)
[2016-10-11] MEDS: TIOTROPIUM BROMIDE 18 MCG INH INH SCH (08:14)
[2016-10-11] MEDS: ARTIFICIAL TEARS OPTH SOLN 15 ML BTL EACH EYE SCH ×3 (08:14→16:50)
[2016-10-11] MEDS: BUDESONIDE-FORMOTEROL 160/4.5 MCG INHALER INH SCH ×2 (08:15→20:16)
[2016-10-11] MEDS: CHLORHEXIDINE 0.12% (ORAL KIT) 15 ML CUP MT SCH ×2 (08:15→20:00)
--- NOTE | 2016-10-11 08:51 | HHI.CCPN ---
Subjective Remarks/Hospital Course The patient presented to the ED with status epilepticus from her assisted living facility. This patient has significant seizure history and is on 4 different antiepileptics, recently discharged from [facility] 08/09/2016. In route to the hospital EMS gave 4 mg IM Ativan.The seizures continued. She had multiple seizures described as grand mal by paramedics in the ambulance. The patient upon admission to ED the patient was noted to be hypertensive and continued to have seizures, the patient was intubated for airway protection by ED staff and given 2 mg of Ativan IV. The patient was then placed on a propofol infusion. , neurologist was consulted. Dilantin level was obtained .Critical care medicine is consulted for ventilatory management. Subjective 10/08: Afebrile. Upon admission to ICU yesterday afternoon the patient was noted to have 1 seizure, patient received Ativan. The patient was then placed on a Versed and fentanyl infusion. No subsequent seizures since admission yesterday afternoon. Patient's antiepileptic medications have been reinstituted. The patient remains sedated and intubated, will perform a sedation vacation today. Neurology has been called consulted per ED, Dr. Zamora awaiting recommendations. 10/09: EEG performed showing spikes subcortical seizures, Dilantin loaded IV this a.m., per Dr. Álvarez. Sedation vacation obtained revealing GCS of 11 T. 10/10: Tmax 99.0. Patient has been noted over the past 24 hours to have elevations in the temperature 100.9. Chest x-ray yesterday revealed developing right basilar opacity possibly secondary to aspiration during admission in ED with seizure activity. Plan to initiate empiric antibiotics. The patient continued to have seizures per EEG, medications adjusted and managed with neurologist Dr. Álvarez. Upon sedation vacation the patient remains GCS 11T. 10/11: T Air888.5. The patient had EEG performed yesterday noted persistent PLEDs. Upon sedation vacation the patient is a GCS 11 T. Antibiotics were initiated yesterday secondary to probable aspiration. Plan today for CPAP trials with possible extubation. Objective Vital Signs Date Time Temp Pulse Resp B/P Pulse Ox O2 Delivery O2 Flow Rate FiO2 10/11/16 07:48 35 10/11/16 07:42 97 10/11/16 06:00 68 10/11/16 04:00 98.9 19 106/52 10/07/16 14:35 Ventilator 10/07/16 12:15 15 Intake and Output 10/10/16 10/10/16 10/11/16 08:00 16:00 00:00 Intake Total 1132 ml 1866 ml 977 ml Output Total 600 ml 450 ml 240 ml Balance 532 ml 1416 ml 737 ml Result Diagram: 10/11/16 0449 10/11/16 0449 Imaging Last Impressions Head CT 10/07/16 0000 Signed Impressions: Service Date/Time: Friday, October 07, 2016 12:58 - CONCLUSION: No acute disease. Mattie Bourgeois MD Chest X-Ray 10/07/16 0000 Signed Impressions: Service Date/Time: Friday, October 07, 2016 12:34 - CONCLUSION: Interval intubation and placement of a gastric tube which appear appropriate position. Stable appearance of the lungs consistent with emphysema. Mattie Bourgeois MD Objective Remarks GENERAL: Intubated, awake and responsive SKIN: Warm and dry. HEAD: Atraumatic. Normocephalic. EYES: Pupils equal and round. No scleral icterus. No injection or drainage. ENT: No nasal bleeding or discharge. Mucous membranes pink and moist. NECK: Trachea midline. No JVD. CARDIOVASCULAR: Normal rate, regular rhythm. RESPIRATORY: Mechanical ventilation. Clear to auscultation. Breath sounds equal bilaterally. GASTROINTESTINAL: Abdomen soft, non-tender, nondistended. No guarding. MUSCULOSKELETAL: Extremities without clubbing, cyanosis, or edema. No obvious deformities. NEUROLOGICAL: GCS 11 T. Currently on sedation vacation, following commands. Urinary Catheter: Yes Date of Insertion: Oct 07, 2016 Vascular Central Line Catheter: No A/P Assessment and Plan Plan by systems: Neurologic: Status epilepticus Seizure disorder Major depression disorder History of TIA-right carotid artery History of CVA with short-term memory loss Schizoaffective disorder History of crack cocaine use TMJ disorder History of EtOH abuse Sedation currently off, for CPAP trials Patient's home meds include Topamax, Vimpat, Keppra, Dilantin. Continue home med Donepizil 10 mg twice a day,home medication. Patient also on atorvastatin and aspirin Neurology consulted Dr. Álvarez 08/08/16EEG abnormality right mid temporal lobe which is epileptiform. 08/06/16-MRI-no acute findings 10/07/16 CT brain-no acute disease 10/07/16-Dilantin level 13.7 Monitor for signs of alcohol withdrawal, Ativan when necessary Folate1 mg daily and multivitamin daily Sedation vacation per protocol daily 10/10: Persistent right hemispheric PLEDs Respiratory: COPD Tobacco abuse Hypoxic Respiratory Failure Continue Spiriva, and Symbicort (home med) Duo nebs every 6 hours scheduled, and every 2 hours when necessary Nicotine patch medium dose 7 days Mechanical ventilation settings 500/14/5/0.40 10/10/16-CXR right lower lobe opacity Ventilator bundle Maintain head of bed greater than 30 CPAP trials as tolerated with plans for extubation today if parameters are mass Cardiovascular: Hyperlipidemia Hypertension Continue atorvastatin, aspirin 81 mg/day, and metoprolol 50 mg twice a day Maintain MAP > 65mmHg Renal: Chronic hyponatremia Renal insufficiency Monitor BMP, IV Hep-Lock Sodium level 131, similar to levels on last admission 08/2016 continue to monitor -- Strict I/Os FEN/GI: Hyperlipidemia Continue tube feeds Jevity at 40 cc/hour, no noted residual Continue atorvastatin Protonix 40 mg daily Heme/ID: Leukocytosis Possible aspiration pneumonia 10/07-blood and urine cultures-NGTD Monitor CBC. WBC Begin empiric dosing azithromycin 500 mg/24 hours, Zosyn 4.5 g every 6 hours ( day 2 of 7) Endocrine: Glucose monitoring per ICU protocol -- SSI Prophylaxis: GI Prophylaxis Protonix DVT Prophylaxis -- SCDs Heparin 5000 units subcutaneous every 12 hours Lines: Peripheral IVs. Central line if indicated Discussed with REEL HOOKER at bedside Dispo: This patient remains critically ill with one or more organ systems which are or may become a threat to life. I have spent in excess of 30 minutes discontinuously in the care and management of this patient. This time is exclusive of procedures, and includes, but is not limited to, evaluation of the patient, review of the medical record, discussions with family, consultants, nursing staff, or respiratory therapy, and documentation in the medical record. Physician Kellen Johnson MD Oct 11, 2016 08:51
[2016-10-11] MEDS: LACOSAMIDE INJ 200 MG in SODIUM CHLORIDE 0.9% INJ 100 ML IV SCH ×2 (09:00→21:42)
[2016-10-11] MEDS: AZITHROMYCIN INJ 500 MG in SODIUM CHLOR 0.9% 250 ML INJ 250 ML IV SCH (14:15)
[2016-10-11] MEDS: ATORVASTATIN 80 MG TAB PO SCH (20:16)
[2016-10-12] VITALS (14 sets, daily range): BP systolic 149–164; BP diastolic 67–81; PULSE 63–81; RESP 19–29; TEMP 98.3–99.8; O2SAT 93–100
[2016-10-12] MEDS: PIPERACIL-TAZO 4.5 GM PREMIX 100 ML IV SCH ×4 (04:17→22:21)
[2016-10-12] MEDS: levETIRAcetam 1000 MG INJ 100 ML IV SCH ×3 (04:20→21:06)
[2016-10-12] MEDS: DOCUSATE SODIUM 100 MG/10 ML UDC G-TUBE SCH ×2 (04:20→17:55)
[2016-10-12 06:48] LABS: BICARBONATE 26.7 MEQ/L (21.0-32.0); MAGNESIUM 1.9 MG/DL (1.5-2.5); POTASSIUM 3.9 MEQ/L (3.5-5.1)
[2016-10-12] MEDS: INSULIN NovoLIN REGULAR SUPPLEMENTAL SCALE SQ SCH ×4 (06:55→21:00)
[2016-10-12] MEDS: CHLORHEXIDINE 0.12% (ORAL KIT) 15 ML CUP MT SCH ×2 (08:00→20:00)
[2016-10-12] MEDS: REMOVE OLD PATCH T-DERMAL SCH (09:00)
[2016-10-12] MEDS: ARTIFICIAL TEARS OPTH SOLN 15 ML BTL EACH EYE SCH ×3 (09:00→17:55)
[2016-10-12] MEDS: TIOTROPIUM BROMIDE 18 MCG INH INH SCH (09:00)
[2016-10-12] MEDS: ASPIRIN EC 81 MG TABEC PO SCH (09:26)
[2016-10-12] MEDS: MULTIVITAMINS/MINERALS THERAPEUTIC TAB PO SCH (09:26)
[2016-10-12] MEDS: METOPROLOL TARTRATE 50 MG TAB PO SCH ×2 (09:26→21:07)
[2016-10-12] MEDS: CITALOPRAM HYDROBROMIDE 40 MG TAB PO SCH (09:26)
[2016-10-12] MEDS: FOLIC ACID 1 MG TAB PO SCH (09:26)
[2016-10-12] MEDS: DOCUSATE SODIUM 100 MG/10 ML UDC PO SCH ×2 (09:26→21:07)
[2016-10-12] MEDS: SENNOSIDES SYRUP 8.8 MG/5 ML CUP PO SCH (09:26)
[2016-10-12] MEDS: BUDESONIDE-FORMOTEROL 160/4.5 MCG INHALER INH SCH ×2 (09:26→21:06)
[2016-10-12] MEDS: TOPIRAMATE 25 MG TAB PO SCH ×2 (09:27→21:08)
[2016-10-12] MEDS: PANTOPRAZOLE SODIUM 40 MG VIAL IV SCH (09:27)
[2016-10-12] MEDS: PHENYTOIN SODIUM 100 MG CAP PO SCH ×2 (09:27→21:07)
[2016-10-12] MEDS: LACOSAMIDE INJ 200 MG in SODIUM CHLORIDE 0.9% INJ 100 ML IV SCH ×2 (09:27→21:07)
[2016-10-12] MEDS: NICOTINE 14 MG/24 HR PATCH T-DERMAL SCH (09:30)
--- NOTE | 2016-10-12 10:39 | HHI.CCPN ---
Subjective Remarks/Hospital Course The patient presented to the ED with status epilepticus from her assisted living facility. This patient has significant seizure history and is on 4 different antiepileptics, recently discharged from [facility] 08/09/2016. In route to the hospital EMS gave 4 mg IM Ativan.The seizures continued. She had multiple seizures described as grand mal by paramedics in the ambulance. The patient upon admission to ED the patient was noted to be hypertensive and continued to have seizures, the patient was intubated for airway protection by ED staff and given 2 mg of Ativan IV. The patient was then placed on a propofol infusion. , neurologist was consulted. Dilantin level was obtained .Critical care medicine is consulted for ventilatory management. Subjective 10/08: Afebrile. Upon admission to ICU yesterday afternoon the patient was noted to have 1 seizure, patient received Ativan. The patient was then placed on a Versed and fentanyl infusion. No subsequent seizures since admission yesterday afternoon. Patient's antiepileptic medications have been reinstituted. The patient remains sedated and intubated, will perform a sedation vacation today. Neurology has been called consulted per ED, Dr. Zamora awaiting recommendations. 10/09: EEG performed showing spikes subcortical seizures, Dilantin loaded IV this a.m., per Dr. Álvarez. Sedation vacation obtained revealing GCS of 11 T. 10/10: Tmax 99.0. Patient has been noted over the past 24 hours to have elevations in the temperature 100.9. Chest x-ray yesterday revealed developing right basilar opacity possibly secondary to aspiration during admission in ED with seizure activity. Plan to initiate empiric antibiotics. The patient continued to have seizures per EEG, medications adjusted and managed with neurologist Dr. Álvarez. Upon sedation vacation the patient remains GCS 11T. 10/11: T Tof642.5. The patient had EEG performed yesterday noted persistent PLEDs. Upon sedation vacation the patient is a GCS 11 T. Antibiotics were initiated yesterday secondary to probable aspiration. Plan today for CPAP trials with possible extubation. 10/12: No acute events overnight. The patient was successfully extubated yesterday afternoon. No seizure activity in the last 24 hours. The patient's diet has been advanced, and tolerated. Physical therapy has been instituted. Repeat Dilantin level pending, per neurology secondary to supratherapeutic levels. Objective Vital Signs Date Time Temp Pulse Resp B/P Pulse Ox O2 Delivery O2 Flow Rate FiO2 10/12/16 08:07 98 21 10/12/16 08:00 70 10/12/16 04:00 98.7 21 156/76 10/11/16 19:02 Nasal Cannula 4.00 Intake and Output 10/11/16 10/11/16 10/12/16 08:00 16:00 00:00 Intake Total 1102 ml 774 ml 936 ml Output Total 350 ml 925 ml 600 ml Balance 752 ml -151 ml 336 ml Result Diagram: 10/11/16 0449 10/12/16 0535 Imaging Last Impressions Head CT 10/07/16 0000 Signed Impressions: Service Date/Time: Friday, October 07, 2016 12:58 - CONCLUSION: No acute disease. Mattie Bourgeois MD Chest X-Ray 10/07/16 0000 Signed Impressions: Service Date/Time: Friday, October 07, 2016 12:34 - CONCLUSION: Interval intubation and placement of a gastric tube which appear appropriate position. Stable appearance of the lungs consistent with emphysema. Mattie Bourgeois MD Objective Remarks GENERAL: Awake and alert well-developed female in no apparent distress SKIN: Warm and dry. HEAD: Atraumatic. Normocephalic. EYES: Pupils equal and round. No scleral icterus. No injection or drainage. ENT: No nasal bleeding or discharge. Mucous membranes pink and moist. NECK: Trachea midline. No JVD. CARDIOVASCULAR: Normal rate, regular rhythm. RESPIRATORY: Mechanical ventilation. Clear to auscultation. Breath sounds equal bilaterally. GASTROINTESTINAL: Abdomen soft, non-tender, nondistended. No guarding. MUSCULOSKELETAL: Extremities without clubbing, cyanosis, or edema. No obvious deformities. NEUROLOGICAL: Alert and appropriate. Following commands, moves extremities 4. Date of Insertion: Oct 07, 2016 Date of Removal: Oct 12, 2016 A/P Assessment and Plan Plan by systems: Neurologic: Status epilepticus Seizure disorder Major depression disorder History of TIA-right carotid artery History of CVA with short-term memory loss Schizoaffective disorder History of crack cocaine use TMJ disorder History of EtOH abuse GCS 15-alert and oriented 3. Patient's home meds include Topamax, Vimpat, Keppra, Dilantin. Continue home med Donepizil 10 mg twice a day,home medication. Patient also on atorvastatin and aspirin Neurology consulted Dr. Álvarez 08/08/16EEG abnormality right mid temporal lobe which is epileptiform. 08/06/16-MRI-no acute findings 10/07/16 CT brain-no acute disease 10/07/16-Dilantin level 13.7 Monitor for signs of alcohol withdrawal, Ativan when necessary Folate1 mg daily and multivitamin daily 10/10: Persistent right hemispheric PLEDs Respiratory: COPD Tobacco abuse Hypoxic Respiratory Failure Continue Spiriva, and Symbicort (home med) Duo nebs every 6 hours scheduled, and every 2 hours when necessary Nicotine patch medium dose 7 days Mechanical ventilation settings 500/14/5/0.40 10/10/16-CXR right lower lobe opacity Maintain head of bed greater than 30 Cardiovascular: Hyperlipidemia Hypertension Continue atorvastatin, aspirin 81 mg/day, and metoprolol 50 mg twice a day Maintain MAP > 65mmHg Renal: Chronic hyponatremia-resolved Renal insufficiency Monitor BMP, IV Hep-Lock -- Strict I/Os FEN/GI: Hyperlipidemia Regular diet Continue atorvastatin Discontinue Protonix 40 mg daily Heme/ID: Leukocytosis Possible aspiration pneumonia 10/07-blood and urine cultures-NGTD Monitor CBC. WBC Begin empiric dosing azithromycin 500 mg/24 hours, Zosyn 4.5 g every 6 hours ( day 3 of 7) Endocrine: Glucose monitoring per ICU protocol -- SSI Prophylaxis: GI Prophylaxis Protonix DVT Prophylaxis -- SCDs Heparin 5000 units subcutaneous every 12 hours. PT evaluation and treat patient to get out of bed with assistance Lines: Peripheral IVs. Discussed with RENDERING EQUIPMENT TENDER at bedside Dispo: Plan transfer to [facility] in a. Level 3 Physician Kellen Johnson MD Oct 12, 2016 10:38
[2016-10-12] MEDS: AZITHROMYCIN INJ 500 MG in SODIUM CHLOR 0.9% 250 ML INJ 250 ML IV SCH (11:45)
[2016-10-12] MEDS: HEPARIN SODIUM - SQ 10,000 UNITS/ML VIAL SQ SCH (17:55)
[2016-10-12] MEDS: ATORVASTATIN 80 MG TAB PO SCH (21:07)
--- NOTE | 2016-10-12 23:10 | MG ---
cc: ROSCOE DIXON MD Lab No: [id number] Date: 10/12/16 Age: 41 Sex: F Race: 1955 A 51-year-old female with history of seizures. Pseudo Single right PLEDS very high voltage frontal sharp waves on the right, tingling on the left. Improved posterior background 5-6 Hz occurring. Myotonic activity occurring off and on ___ clusters. Reduced driving with photic stimulation. INTERPRETATION Persistent high voltage right-sided frontal discharges, however, significantly reduced in frequency and improved background appearance compared to previous EEGs. Clinical correlation. MD YENNI Wilson/ /10:16 PM /11:03 PM
[2016-10-13] VITALS (7 sets, daily range): BP systolic 123–181; BP diastolic 69–90; PULSE 65–96; RESP 18–20; TEMP 97.8–99.2; O2SAT 94–97
[2016-10-13] MEDS: CHLORHEXIDINE GLUCONATE 2 % 1 PACK (2 CLOTHS) TOP SCH (04:00)
[2016-10-13] MEDS: PIPERACIL-TAZO 4.5 GM PREMIX 100 ML IV SCH ×4 (04:51→22:45)
[2016-10-13] MEDS: levETIRAcetam 1000 MG INJ 100 ML IV SCH ×3 (06:29→21:12)
[2016-10-13] MEDS: HEPARIN SODIUM - SQ 10,000 UNITS/ML VIAL SQ SCH ×2 (06:30→17:36)
[2016-10-13] MEDS: DOCUSATE SODIUM 100 MG/10 ML UDC G-TUBE SCH ×2 (06:30→17:31)
[2016-10-13] MEDS: INSULIN NovoLIN REGULAR SUPPLEMENTAL SCALE SQ SCH ×4 (06:47→21:00)
[2016-10-13] MEDS: CHLORHEXIDINE 0.12% (ORAL KIT) 15 ML CUP MT SCH ×2 (08:00→20:00)
[2016-10-13] MEDS: LACOSAMIDE INJ 200 MG in SODIUM CHLORIDE 0.9% INJ 100 ML IV SCH ×2 (08:44→21:19)
[2016-10-13] MEDS: DOCUSATE SODIUM 100 MG/10 ML UDC PO SCH ×2 (08:48→21:11)
[2016-10-13] MEDS: NICOTINE 14 MG/24 HR PATCH T-DERMAL SCH (08:48)
[2016-10-13] MEDS: FOLIC ACID 1 MG TAB PO SCH (08:48)
[2016-10-13] MEDS: MULTIVITAMINS/MINERALS THERAPEUTIC TAB PO SCH (08:48)
[2016-10-13] MEDS: SENNOSIDES SYRUP 8.8 MG/5 ML CUP PO SCH (08:48)
[2016-10-13] MEDS: PHENYTOIN SODIUM 100 MG CAP PO SCH ×2 (08:48→21:12)
[2016-10-13] MEDS: ASPIRIN EC 81 MG TABEC PO SCH (08:49)
[2016-10-13] MEDS: METOPROLOL TARTRATE 50 MG TAB PO SCH ×2 (08:49→21:12)
[2016-10-13] MEDS: TOPIRAMATE 25 MG TAB PO SCH (08:49)
[2016-10-13] MEDS: CITALOPRAM HYDROBROMIDE 40 MG TAB PO SCH (08:49)
[2016-10-13] MEDS: REMOVE OLD PATCH T-DERMAL SCH (08:50)
[2016-10-13] MEDS: ARTIFICIAL TEARS OPTH SOLN 15 ML BTL EACH EYE SCH ×3 (08:58→17:36)
[2016-10-13] MEDS: TIOTROPIUM BROMIDE 18 MCG INH INH SCH (09:00)
[2016-10-13 10:37] LABS: BICARBONATE 23.9 MEQ/L (21.0-32.0); POTASSIUM 3.8 MEQ/L (3.5-5.1)
[2016-10-13] MEDS: AZITHROMYCIN INJ 500 MG in SODIUM CHLOR 0.9% 250 ML INJ 250 ML IV SCH (11:11)
[2016-10-13] MEDS: BUDESONIDE-FORMOTEROL 160/4.5 MCG INHALER INH SCH ×2 (11:12→21:00)
--- NOTE | 2016-10-13 18:24 | HHI.PR ---
Subjective Remarks As per RN, patient very confused earlier, now a little bit more oriented The patient denies chest pain, shortness of breath No obvious seizures reported. Patient had 2 BMs and voided by herself Her blood pressure seemed to be elevated earlier, now slightly improved Objective Vitals Vital Signs Date Time Temp Pulse Resp B/P Pulse Ox O2 Delivery O2 Flow Rate FiO2 10/13/16 18:00 95 21 10/13/16 16:00 99.2 72 18 141/69 95 10/13/16 12:13 98.2 65 19 154/80 97 10/13/16 08:03 98.3 68 19 181/90 94 10/13/16 04:00 98.3 67 20 173/85 94 10/13/16 00:00 98.6 69 20 123/69 95 10/12/16 22:00 63 10/12/16 20:53 93 Nasal Cannula 2.00 10/12/16 20:00 99.0 68 21 149/67 10/12/16 20:00 68 I/O 10/12/16 10/12/16 10/12/16 10/13/16 10/13/16 10/13/16 07:00 15:00 23:00 07:00 15:00 23:00 Intake Total 1286 ml 539 ml 483 ml Output Total 1500 ml 1050 ml 750 ml 1500 ml 1500 ml Balance -214 ml -511 ml -267 ml -1500 ml -1500 ml Intake Oral 150 ml 150 ml 120 ml IV Total 1136 ml 389 ml 363 ml Output Urine Total 1500 ml 1050 ml 750 ml 1500 ml 1500 ml # Bowel Movements 0 1 0 1 Result Diagram: 10/11/16 0449 10/13/16 0845 Imaging Last Impressions Chest X-Ray 10/11/16 0600 Signed Impressions: Service Date/Time: September 02:50 - CONCLUSION: 1. Worsening airspace disease in the right lower lobe and minimal density left lower lobe. Chris Cotto MD Head CT 10/07/16 0000 Signed Impressions: Service Date/Time: Friday, October 07, 2016 12:58 - CONCLUSION: No acute disease. Mattie Bourgeois MD Objective Remarks GENERAL: Awake and alert well-developed female in no apparent distress SKIN: Warm and dry. HEAD: Atraumatic. Normocephalic. EYES: Pupils equal and round. No scleral icterus. No injection or drainage. ENT: No nasal bleeding or discharge. Mucous membranes pink and moist. NECK: Trachea midline. No JVD. CARDIOVASCULAR: Normal rate, regular rhythm. RESPIRATORY: Mechanical ventilation. Clear to auscultation. Breath sounds equal bilaterally. GASTROINTESTINAL: Abdomen soft, non-tender, nondistended. No guarding. MUSCULOSKELETAL: Extremities without clubbing, cyanosis, or edema. No obvious deformities. NEUROLOGICAL: Alert and appropriate. Following commands, moves extremities 4. Procedures none Medications and IVs Current Medications Medications (Trade) Dose Ordered Sig/Elizabet Route Start Time Stop Time Status Last Admin Sodium Chloride 2 ml 2 ml UNSCH PRN IVF 10/07/16 12:45 10/08/16 08:29 (Diprivan 1000 Mg/100ml Inj) 100 ml @ 0 mls/hr TITRATE IV 10/07/16 13:45 10/07/16 13:48 (Tylenol) 650 mg Q6H PRN PO 10/07/16 14:30 10/08/16 23:07 (Tears Naturale Opth Soln) 1 drop TID EACH EYE 10/07/16 18:00 10/13/16 17:36 (Zofran Inj) 4 mg Q6H PRN IV 10/07/16 14:30 (Colace Liq) 100 mg Q12H G-TUBE 10/07/16 18:00 10/13/16 17:31 (Dulcolax Supp) 10 mg DAILY PRN RECTAL 10/07/16 14:30 (Heparin Inj) 5,000 units Q12H SQ 10/07/16 18:00 10/13/16 06:30 Miscellaneous Information 1 Q361D XX 10/07/16 14:30 (Chlorhexidine 2% Cloth) Taper DAILY@04 TOP 10/08/16 04:00 10/04/17 03:59 10/11/16 20:14 Chlorhexidine Gluconate 3 pack 3 pack UNSCH PRN TOP 10/07/16 14:30 Midazolam HCl 100 ml @ 0 mls/hr TITRATE IV 10/07/16 14:30 10/10/16 23:21 (fentaNYL DRIP) 250 ml @ 0 mls/hr TITRATE IV 10/07/16 14:30 10/10/16 16:45 (Peridex 0.12% Liq) 15 ml BID@08,20 MT 10/07/16 20:00 10/13/16 08:00 (Ecotrin Ec) 81 mg DAILY PO 10/08/16 09:00 10/12/16 09:26 (Lipitor) 80 mg HS PO 10/07/16 21:00 10/12/16 21:07 (Symbicort 160-4.5 Inh) 2 puff BID INH 10/07/16 21:00 10/13/16 11:12 (CeleXA) 40 mg DAILY PO 10/08/16 09:00 10/13/16 08:49 (Folate) 1 mg DAILY PO 10/08/16 09:00 10/13/16 08:48 (Lopressor) 50 mg BID PO 10/07/16 21:00 10/13/16 08:49 (Dilantin) 200 mg BID PO 10/07/16 21:00 10/13/16 08:48 (Spiriva Inh) 18 mcg DAILY INH 10/08/16 09:00 10/13/16 09:00 (Theragran M Tab) 1 tab DAILY PO 10/08/16 09:00 10/13/16 08:48 (Habitrol 14 Mg Patch.24 Hr) 1 patch DAILY T-DERMAL 10/08/16 09:00 10/15/16 09:00 10/13/16 08:48 Miscellaneous Information 1 DAILY T-DERMAL 10/08/16 09:00 10/15/16 09:00 10/13/16 08:50 (D50w (Vial) Inj) 25 ml UNSCH PRN IV PUSH 10/07/16 15:30 (Glucagon Inj) 1 mg UNSCH PRN OTHER 10/07/16 15:30 (Ativan Inj) 2 mg Q2H PRN IV PUSH 10/07/16 16:15 10/09/16 09:46 (Dulcolax Supp) 10 mg DAILY PRN RECTAL 10/08/16 08:45 (Colace Liq) 100 mg Q12HR PO 10/08/16 09:00 10/13/16 08:48 Sennosides 8.8 mg 8.8 mg DAILY PO 10/08/16 09:00 10/13/16 08:48 Levetriacetam 100 ml @ 400 mls/hr Q8H IV 10/09/16 21:00 10/13/16 06:29 Lacosamide 200 mg/ Sodium Chloride 120 ml @ 115 mls/hr Q12HR IV 10/09/16 21:00 10/13/16 08:44 Piperacillin Sod/ Tazobactam Sod 100 ml @ 200 mls/hr Q6H IV 10/10/16 10:00 10/13/16 17:31 (Zithromax Inj/ NS 250 ml Inj) 250 ml @ 250 mls/hr Q24H IV 10/10/16 11:00 10/13/16 11:11 (Topamax) 100 mg BID PO 10/13/16 21:00 Urinary Catheter: No Date of Insertion: Oct 07, 2016 Date of Removal: Oct 12, 2016 Vascular Central Line Catheter: No A/P Assessment and Plan Neurologic: Status epilepticus Seizure disorder Major depression disorder History of TIA-right carotid artery History of CVA with short-term memory loss Schizoaffective disorder History of crack cocaine use TMJ disorder History of EtOH abuse GCS 15-alert and oriented 3. Patient's home meds include Topamax, Vimpat, Keppra, Dilantin. Continue home med Donepizil 10 mg twice a day,home medication. Patient also on atorvastatin and aspirin Neurology consulted Dr. Álvarez 08/08/16EEG abnormality right mid temporal lobe which is epileptiform. 08/06/16-MRI-no acute findings 10/07/16 CT brain-no acute disease 10/07/16-Dilantin level 13.7 Monitor for signs of alcohol withdrawal, Ativan when necessary Folate1 mg daily and multivitamin daily 10/10: Persistent right hemispheric PLEDs 10/13 EEG reports persistent high-voltage right-sided frontal discharges, however significantly reduced in frequency and improved background appearance compared to previous EEGs. Follow up neurology recommendations. Continue anticonvulsants, the patient currently on levetiracetam, lacosamide. Respiratory: COPD Tobacco abuse Hypoxic Respiratory Failure Continue Spiriva, and Symbicort (home med) Duo nebs every 6 hours scheduled, and every 2 hours when necessary Nicotine patch medium dose 7 days Mechanical ventilation settings 500/14/5/0.40 10/10/16-CXR right lower lobe opacity Maintain head of bed greater than 30 Cardiovascular: Hyperlipidemia Hypertension Continue atorvastatin, aspirin 81 mg/day, and metoprolol 50 mg twice a day Maintain MAP > 65mmHg Renal: Chronic hyponatremia-resolved Renal insufficiency Monitor BMP, IV Hep-Lock -- Strict I/Os FEN/GI: Hyperlipidemia Regular diet Continue atorvastatin Discontinue Protonix 40 mg daily Heme/ID: Leukocytosis Possible aspiration pneumonia 10/07-blood and urine cultures-NGTD Monitor CBC. WBC Begin empiric dosing azithromycin 500 mg/24 hours, Zosyn 4.5 g every 6 hours ( day 3 of 7) Endocrine: Glucose monitoring per ICU protocol -- SSI Prophylaxis: GI Prophylaxis Protonix DVT Prophylaxis -- SCDs Heparin 5000 units subcutaneous every 12 hours. PT evaluation and treat patient to get out of bed with assistance Discharge Planning There is a pending neurology clearance. Patient seems to still be having seizures. Mauricio Lcokwood MD Oct 13, 2016 18:24
[2016-10-13] MEDS: TOPIRAMATE 100 MG TAB PO SCH (21:11)
[2016-10-13] MEDS: ATORVASTATIN 80 MG TAB PO SCH (21:12)
[2016-10-14 00:42] VITALS: BP 141/72; PULSE 64; RESP 18; TEMP 97.4; O2SAT 93
[2016-10-14] MEDS: CHLORHEXIDINE GLUCONATE 2 % 1 PACK (2 CLOTHS) TOP SCH (04:00)
[2016-10-14] MEDS: PIPERACIL-TAZO 4.5 GM PREMIX 100 ML IV SCH ×4 (04:50→22:53)
[2016-10-14] MEDS: levETIRAcetam 1000 MG INJ 100 ML IV SCH ×3 (04:50→22:53)
[2016-10-14 04:51] VITALS: BP 180/78; PULSE 65; RESP 18; TEMP 97.2; O2SAT 95
[2016-10-14] MEDS: HEPARIN SODIUM - SQ 10,000 UNITS/ML VIAL SQ SCH ×2 (05:29→18:00)
[2016-10-14] MEDS: INSULIN NovoLIN REGULAR SUPPLEMENTAL SCALE SQ SCH ×4 (05:29→21:00)
[2016-10-14] MEDS: DOCUSATE SODIUM 100 MG/10 ML UDC G-TUBE SCH ×2 (05:35→19:23)
[2016-10-14] MEDS: CHLORHEXIDINE 0.12% (ORAL KIT) 15 ML CUP MT SCH ×2 (08:00→20:00)
[2016-10-14] MEDS: METOPROLOL TARTRATE 50 MG TAB PO SCH ×2 (08:21→22:56)
[2016-10-14] MEDS: PHENYTOIN SODIUM 100 MG CAP PO SCH ×2 (08:22→22:56)
[2016-10-14] MEDS: FOLIC ACID 1 MG TAB PO SCH (08:24)
[2016-10-14] MEDS: TOPIRAMATE 100 MG TAB PO SCH ×2 (08:24→22:56)
[2016-10-14] MEDS: DOCUSATE SODIUM 100 MG/10 ML UDC PO SCH ×2 (08:24→22:55)
[2016-10-14] MEDS: SENNOSIDES SYRUP 8.8 MG/5 ML CUP PO SCH (08:24)
[2016-10-14] MEDS: CITALOPRAM HYDROBROMIDE 40 MG TAB PO SCH (08:25)
[2016-10-14] MEDS: ASPIRIN EC 81 MG TABEC PO SCH (08:25)
[2016-10-14] MEDS: LACOSAMIDE INJ 200 MG in SODIUM CHLORIDE 0.9% INJ 100 ML IV SCH ×2 (08:26→22:53)
[2016-10-14] MEDS: MULTIVITAMINS/MINERALS THERAPEUTIC TAB PO SCH (08:26)
[2016-10-14] MEDS: NICOTINE 14 MG/24 HR PATCH T-DERMAL SCH (08:28)
[2016-10-14] MEDS: REMOVE OLD PATCH T-DERMAL SCH (08:28)
[2016-10-14] MEDS: ARTIFICIAL TEARS OPTH SOLN 15 ML BTL EACH EYE SCH ×3 (08:30→18:00)
[2016-10-14] MEDS: TIOTROPIUM BROMIDE 18 MCG INH INH SCH (08:31)
[2016-10-14] MEDS: BUDESONIDE-FORMOTEROL 160/4.5 MCG INHALER INH SCH ×2 (08:31→22:51)
[2016-10-14 08:37] VITALS: BP 171/80; PULSE 62; RESP 19; TEMP 97.6; O2SAT 94
--- NOTE | 2016-10-14 11:06 | HHI.PR ---
Review/Management Diagnosis 1. Status epilepticus. 2. Seizure disorder. 3. History of stroke. 4. Dementia. 5. History of crack cocaine use. 6. History of ethanol abuse. Plan - Neuro checks 1 hourly. - Dilantin,100mg am, 100mg mid-day, 200mg pm - Vimpat 150mg Q12h iv - Keppra IV, 1000 gm Q8h dil 11.2 increased to topamax 100omg bid doing well Dr. Álvarez to follow tomorrow Diagnosis/Plan: Subjective Subjective Comments No acute events reported xcover No headache No chest pain No dyspnea Active Medications Current Medications Medications (Trade) Dose Ordered Sig/Elizabet Route Start Time Stop Time Status Last Admin Sodium Chloride 2 ml 2 ml UNSCH PRN IVF 10/07/16 12:45 10/08/16 08:29 (Diprivan 1000 Mg/100ml Inj) 100 ml @ 0 mls/hr TITRATE IV 10/07/16 13:45 10/07/16 13:48 (Tylenol) 650 mg Q6H PRN PO 10/07/16 14:30 10/08/16 23:07 (Tears Naturale Opth Soln) 1 drop TID EACH EYE 10/07/16 18:00 10/14/16 08:30 (Zofran Inj) 4 mg Q6H PRN IV 10/07/16 14:30 (Colace Liq) 100 mg Q12H G-TUBE 10/07/16 18:00 10/14/16 05:35 (Dulcolax Supp) 10 mg DAILY PRN RECTAL 10/07/16 14:30 (Heparin Inj) 5,000 units Q12H SQ 10/07/16 18:00 10/14/16 05:29 Miscellaneous Information 1 Q361D XX 10/07/16 14:30 (Chlorhexidine 2% Cloth) Taper DAILY@04 TOP 10/08/16 04:00 10/04/17 03:59 10/11/16 20:14 Chlorhexidine Gluconate 3 pack 3 pack UNSCH PRN TOP 10/07/16 14:30 Midazolam HCl 100 ml @ 0 mls/hr TITRATE IV 10/07/16 14:30 10/10/16 23:21 (fentaNYL DRIP) 250 ml @ 0 mls/hr TITRATE IV 10/07/16 14:30 10/10/16 16:45 (Peridex 0.12% Liq) 15 ml BID@08,20 MT 10/07/16 20:00 10/14/16 08:00 (Ecotrin Ec) 81 mg DAILY PO 10/08/16 09:00 10/12/16 09:26 (Lipitor) 80 mg HS PO 10/07/16 21:00 10/13/16 21:12 (Symbicort 160-4.5 Inh) 2 puff BID INH 10/07/16 21:00 10/14/16 08:31 (CeleXA) 40 mg DAILY PO 10/08/16 09:00 10/14/16 08:25 (Folate) 1 mg DAILY PO 10/08/16 09:00 10/14/16 08:24 (Lopressor) 50 mg BID PO 10/07/16 21:00 10/14/16 08:21 (Dilantin) 200 mg BID PO 10/07/16 21:00 10/14/16 08:22 (Spiriva Inh) 18 mcg DAILY INH 10/08/16 09:00 10/14/16 08:31 (Theragran M Tab) 1 tab DAILY PO 10/08/16 09:00 10/14/16 08:26 (Habitrol 14 Mg Patch.24 Hr) 1 patch DAILY T-DERMAL 10/08/16 09:00 10/15/16 09:00 10/14/16 08:28 Miscellaneous Information 1 DAILY T-DERMAL 10/08/16 09:00 10/15/16 09:00 10/14/16 08:28 (D50w (Vial) Inj) 25 ml UNSCH PRN IV PUSH 10/07/16 15:30 (Glucagon Inj) 1 mg UNSCH PRN OTHER 10/07/16 15:30 (Ativan Inj) 2 mg Q2H PRN IV PUSH 10/07/16 16:15 10/09/16 09:46 (Dulcolax Supp) 10 mg DAILY PRN RECTAL 10/08/16 08:45 (Colace Liq) 100 mg Q12HR PO 10/08/16 09:00 10/14/16 08:24 Sennosides 8.8 mg 8.8 mg DAILY PO 10/08/16 09:00 10/14/16 08:24 Levetriacetam 100 ml @ 400 mls/hr Q8H IV 10/09/16 21:00 10/14/16 04:50 Lacosamide 200 mg/ Sodium Chloride 120 ml @ 115 mls/hr Q12HR IV 10/09/16 21:00 10/14/16 08:26 Piperacillin Sod/ Tazobactam Sod 100 ml @ 200 mls/hr Q6H IV 10/10/16 10:00 10/14/16 04:50 (Zithromax Inj/ NS 250 ml Inj) 250 ml @ 250 mls/hr Q24H IV 10/10/16 11:00 10/13/16 11:11 (Topamax) 100 mg BID PO 10/13/16 21:00 10/14/16 08:24 Allergies Allergies Coded Allergies Aripiprazole (Verified Allergy, Unknown, 10/07/16) Review of Systems Eye: Negative Respiratory: Negative Cardiovascular: Negative Gastrointestinal: Negative Musculoskeletal: Negative All other ROS: ROS reviewed as documented in chart Exam I&O / VS 10/13/16 10/13/16 10/14/16 15:00 23:00 07:00 Intake Total 480 ml Output Total 1500 ml Balance -1500 ml 480 ml Intake Oral 480 ml Output Urine Total 1500 ml # Voids 7 # Bowel Movements 1 Vital Signs Date Time Temp Pulse Resp B/P Pulse Ox O2 Delivery O2 Flow Rate FiO2 10/14/16 08:37 97.6 62 19 171/80 94 10/14/16 04:51 97.2 65 18 180/78 95 10/14/16 00:42 97.4 64 18 141/72 93 10/13/16 21:07 97.8 96 18 138/80 95 10/13/16 18:00 95 21 10/13/16 16:00 99.2 72 18 141/69 95 10/13/16 12:13 98.2 65 19 154/80 97 General: No acute distress Eye: EOMI Respiratory: Non-labored respirations Neurologic: Alert, Normal motor, No focal defects, CN II-XII intact Psychiatric: Cooperative Exam Comments alert, eating breakfast, ox 1-2, not to date, eomi. vff, face sym, no focal weakness Objective Micro and Labs Laboratory Tests Test 10/14/16 07:35 Phenytoin (Dilantin) Level 11.2 Sahil Orozco MD Oct 14, 2016 11:06
[2016-10-14] MEDS: AZITHROMYCIN INJ 500 MG in SODIUM CHLOR 0.9% 250 ML INJ 250 ML IV SCH (11:20)
[2016-10-14 12:00] VITALS: BP 152/71; PULSE 74; RESP 19; TEMP 98.1; O2SAT 96
--- NOTE | 2016-10-14 13:29 | HHI.PR ---
Subjective Remarks Patient seems more alert denies cp c/o sob afebrile no further seizures reported. Objective Vitals Vital Signs Date Time Temp Pulse Resp B/P Pulse Ox O2 Delivery O2 Flow Rate FiO2 10/14/16 12:00 98.1 74 19 152/71 96 10/14/16 08:37 97.6 62 19 171/80 94 10/14/16 04:51 97.2 65 18 180/78 95 10/14/16 00:42 97.4 64 18 141/72 93 10/13/16 21:07 97.8 96 18 138/80 95 10/13/16 18:00 95 21 10/13/16 16:00 99.2 72 18 141/69 95 I/O 10/13/16 10/13/16 10/13/16 10/14/16 10/14/16 10/14/16 07:00 15:00 23:00 07:00 15:00 23:00 Intake Total 480 ml Output Total 1500 ml 1500 ml Balance -1500 ml -1500 ml 480 ml Intake Oral 480 ml Output Urine Total 1500 ml 1500 ml # Voids 7 1 # Bowel Movements 1 Result Diagram: 10/11/16 0449 10/13/16 0845 Imaging Last Impressions Chest X-Ray 10/11/16 0600 Signed Impressions: Service Date/Time: September 02:50 - CONCLUSION: 1. Worsening airspace disease in the right lower lobe and minimal density left lower lobe. Chris Cotto MD Head CT 10/07/16 0000 Signed Impressions: Service Date/Time: Friday, October 07, 2016 12:58 - CONCLUSION: No acute disease. Mattie Bourgeois MD Objective Remarks GENERAL: Awake and alert well-developed female in no apparent distress SKIN: Warm and dry. HEAD: Atraumatic. Normocephalic. EYES: Pupils equal and round. No scleral icterus. No injection or drainage. ENT: No nasal bleeding or discharge. Mucous membranes pink and moist. NECK: Trachea midline. No JVD. CARDIOVASCULAR: Normal rate, regular rhythm. RESPIRATORY: Mechanical ventilation. Clear to auscultation. Breath sounds equal bilaterally. GASTROINTESTINAL: Abdomen soft, non-tender, nondistended. No guarding. MUSCULOSKELETAL: Extremities without clubbing, cyanosis, or edema. No obvious deformities. NEUROLOGICAL: AAOx2 person and place but not to date. Following commands, moves extremities 4. Procedures none Medications and IVs Current Medications Medications (Trade) Dose Ordered Sig/Elizabet Route Start Time Stop Time Status Last Admin Sodium Chloride 2 ml 2 ml UNSCH PRN IVF 10/07/16 12:45 10/08/16 08:29 (Diprivan 1000 Mg/100ml Inj) 100 ml @ 0 mls/hr TITRATE IV 10/07/16 13:45 10/07/16 13:48 (Tylenol) 650 mg Q6H PRN PO 10/07/16 14:30 10/08/16 23:07 (Tears Naturale Opth Soln) 1 drop TID EACH EYE 10/07/16 18:00 10/14/16 12:52 (Zofran Inj) 4 mg Q6H PRN IV 10/07/16 14:30 (Colace Liq) 100 mg Q12H G-TUBE 10/07/16 18:00 10/14/16 05:35 (Dulcolax Supp) 10 mg DAILY PRN RECTAL 10/07/16 14:30 (Heparin Inj) 5,000 units Q12H SQ 10/07/16 18:00 10/14/16 05:29 Miscellaneous Information 1 Q361D XX 10/07/16 14:30 (Chlorhexidine 2% Cloth) Taper DAILY@04 TOP 10/08/16 04:00 10/04/17 03:59 10/11/16 20:14 Chlorhexidine Gluconate 3 pack 3 pack UNSCH PRN TOP 10/07/16 14:30 Midazolam HCl 100 ml @ 0 mls/hr TITRATE IV 10/07/16 14:30 10/10/16 23:21 (fentaNYL DRIP) 250 ml @ 0 mls/hr TITRATE IV 10/07/16 14:30 10/10/16 16:45 (Peridex 0.12% Liq) 15 ml BID@08,20 MT 10/07/16 20:00 10/14/16 08:00 (Ecotrin Ec) 81 mg DAILY PO 10/08/16 09:00 10/12/16 09:26 (Lipitor) 80 mg HS PO 10/07/16 21:00 10/13/16 21:12 (Symbicort 160-4.5 Inh) 2 puff BID INH 10/07/16 21:00 10/14/16 08:31 (CeleXA) 40 mg DAILY PO 10/08/16 09:00 10/14/16 08:25 (Folate) 1 mg DAILY PO 10/08/16 09:00 10/14/16 08:24 (Lopressor) 50 mg BID PO 10/07/16 21:00 10/14/16 08:21 (Dilantin) 200 mg BID PO 10/07/16 21:00 10/14/16 08:22 (Spiriva Inh) 18 mcg DAILY INH 10/08/16 09:00 10/14/16 08:31 (Theragran M Tab) 1 tab DAILY PO 10/08/16 09:00 10/14/16 08:26 (Habitrol 14 Mg Patch.24 Hr) 1 patch DAILY T-DERMAL 10/08/16 09:00 10/15/16 09:00 10/14/16 08:28 Miscellaneous Information 1 DAILY T-DERMAL 10/08/16 09:00 10/15/16 09:00 10/14/16 08:28 (D50w (Vial) Inj) 25 ml UNSCH PRN IV PUSH 10/07/16 15:30 (Glucagon Inj) 1 mg UNSCH PRN OTHER 10/07/16 15:30 (Ativan Inj) 2 mg Q2H PRN IV PUSH 10/07/16 16:15 10/09/16 09:46 (Dulcolax Supp) 10 mg DAILY PRN RECTAL 10/08/16 08:45 (Colace Liq) 100 mg Q12HR PO 10/08/16 09:00 10/14/16 08:24 Sennosides 8.8 mg 8.8 mg DAILY PO 10/08/16 09:00 10/14/16 08:24 Levetriacetam 100 ml @ 400 mls/hr Q8H IV 10/09/16 21:00 10/14/16 12:52 Lacosamide 200 mg/ Sodium Chloride 120 ml @ 115 mls/hr Q12HR IV 10/09/16 21:00 10/14/16 08:26 Piperacillin Sod/ Tazobactam Sod 100 ml @ 200 mls/hr Q6H IV 10/10/16 10:00 10/14/16 11:17 (Zithromax Inj/ NS 250 ml Inj) 250 ml @ 250 mls/hr Q24H IV 10/10/16 11:00 10/14/16 11:20 (Topamax) 100 mg BID PO 10/13/16 21:00 10/14/16 08:24 (Cardura) 2 mg DAILY PO 10/14/16 13:30 Urinary Catheter: No Date of Insertion: Oct 07, 2016 Date of Removal: Oct 12, 2016 Vascular Central Line Catheter: No A/P Problem List: (1) Status epilepticus ICD Code: G40.901 Status: Resolved Plan: Patient was intubated and sedated in the emergency department. The patient was admitted to the intensive care unit and placed under the care of the wrap turner for ventilatory management. Neurology also was consulted. Patient was then extubated and transferred out of the intensive care unit where the hospitalist was consulted. Patient's home meds include Topamax, being packed, Keppra and Dilantin. EKG obtained on 08/08/16 showed abnormality in the right mid temporal lobe which is epileptiform. MRI showed no acute findings on 08/06/16. CT of the head no acute disease on 10/07/16. EEG obtained on 10/12/16 shows persistent of high voltage right-sided frontal discharges, however reduced in frequency and improved background appearance compared to previous EEG. Neurology increased the dose of Topamax, continue Dilantin, Vimpat and Keppra (2) Seizure disorder ICD Code: G40.909 Status: Chronic Plan: Management as above as per neurology recommendations. (3) H/O: CVA (cerebrovascular accident) ICD Code: Z86.73 Status: Acute Plan: Continue aspirin and statin. (4) COPD (chronic obstructive pulmonary disease) ICD Code: J44.9 Status: Chronic Plan: Seems to be stable. Continue supplemental oxygen to keep oxygen saturation more than 92%, Spiriva and DuoNeb as needed. (5) Tobacco abuse ICD Code: Z72.0 Status: Acute Plan: Advised smoking cessation. Continue nicotine patch. (6) Acute hypoxemic respiratory failure ICD Code: J96.01 Status: Resolved Plan: Now resolved. Continue supplemental oxygen to keep oxygen saturation more than 92%. (7) Hyperlipidemia ICD Code: E78.5 Status: Chronic Plan: Continue statin. (8) HTN (hypertension) ICD Code: I10 Status: Chronic Plan: Patient with uncontrolled hypertension. Review of trends show blood pressure went as high as systolic 180. I will start the patient on Cardura 2 mg by mouth daily. (9) Aspiration pneumonia ICD Code: J69.0 Status: Acute Plan: Seems to be improving. Patient on day 4 of IV azithromycin and IV Zosyn. Continue for now. Assessment and Plan GI prophylaxis: I will add PPI. DVT prophylaxis: Continue SCDs, heparin subcutaneously. Discharge Planning Continue to monitor in the medical floor. DC pending neurology clearance. Patient will need PT upon discharge. fresh food manager to assist with placement. Problem Qualifiers (1) COPD (chronic obstructive pulmonary disease): Qualified Code: J44.9 - Chronic obstructive pulmonary disease, unspecified COPD type (2) HTN (hypertension): Qualified Code: I10 - Essential hypertension Mauricio Lockwood MD Oct 14, 2016 13:29
[2016-10-14] MEDS ORDERED: DOXAZOSIN MESYLATE 2 MG TAB PO SCH (13:30)
[2016-10-14 16:00] VITALS: BP 142/72; PULSE 59; RESP 18; TEMP 96.6; O2SAT 94
[2016-10-14 20:00] VITALS: BP 135/75; PULSE 72; RESP 18; TEMP 98.2; O2SAT 94
[2016-10-14] MEDS: ATORVASTATIN 80 MG TAB PO SCH (22:55)
[2016-10-15] VITALS (7 sets, daily range): BP systolic 126–169; BP diastolic 61–83; PULSE 54–84; RESP 16–19; TEMP 97.1–98.2; O2SAT 92–95
[2016-10-15] MEDS: CHLORHEXIDINE GLUCONATE 2 % 1 PACK (2 CLOTHS) TOP SCH (04:00)
[2016-10-15] MEDS: levETIRAcetam 1000 MG INJ 100 ML IV SCH ×3 (04:37→21:23)
[2016-10-15] MEDS: PIPERACIL-TAZO 4.5 GM PREMIX 100 ML IV SCH ×4 (04:37→21:22)
[2016-10-15] MEDS: DOCUSATE SODIUM 100 MG/10 ML UDC G-TUBE SCH ×2 (06:08→18:20)
[2016-10-15] MEDS: HEPARIN SODIUM - SQ 10,000 UNITS/ML VIAL SQ SCH ×2 (06:09→18:20)
[2016-10-15] MEDS: INSULIN NovoLIN REGULAR SUPPLEMENTAL SCALE SQ SCH ×4 (06:14→21:00)
[2016-10-15] MEDS: SENNOSIDES SYRUP 8.8 MG/5 ML CUP PO SCH (09:00)
[2016-10-15] MEDS: NICOTINE 14 MG/24 HR PATCH T-DERMAL SCH (09:20)
[2016-10-15] MEDS: REMOVE OLD PATCH T-DERMAL SCH (09:20)
[2016-10-15] MEDS: FOLIC ACID 1 MG TAB PO SCH (09:21)
[2016-10-15] MEDS: ASPIRIN EC 81 MG TABEC PO SCH (09:21)
[2016-10-15] MEDS: MULTIVITAMINS/MINERALS THERAPEUTIC TAB PO SCH (09:21)
[2016-10-15] MEDS: CITALOPRAM HYDROBROMIDE 40 MG TAB PO SCH (09:21)
[2016-10-15] MEDS: METOPROLOL TARTRATE 50 MG TAB PO SCH ×2 (09:21→21:22)
[2016-10-15] MEDS: LACOSAMIDE INJ 200 MG in SODIUM CHLORIDE 0.9% INJ 100 ML IV SCH (09:22)
[2016-10-15] MEDS: DOCUSATE SODIUM 100 MG/10 ML UDC PO SCH ×2 (09:22→21:21)
[2016-10-15] MEDS: PHENYTOIN SODIUM 100 MG CAP PO SCH ×2 (09:22→21:22)
[2016-10-15] MEDS: CHLORHEXIDINE 0.12% (ORAL KIT) 15 ML CUP MT SCH ×2 (09:27→20:00)
[2016-10-15] MEDS: ARTIFICIAL TEARS OPTH SOLN 15 ML BTL EACH EYE SCH ×3 (09:27→18:21)
[2016-10-15] MEDS: TIOTROPIUM BROMIDE 18 MCG INH INH SCH (09:28)
[2016-10-15] MEDS: BUDESONIDE-FORMOTEROL 160/4.5 MCG INHALER INH SCH ×2 (09:28→21:00)
[2016-10-15] MEDS: TOPIRAMATE 100 MG TAB PO SCH ×2 (09:32→21:22)
[2016-10-15] MEDS: AZITHROMYCIN INJ 500 MG in SODIUM CHLOR 0.9% 250 ML INJ 250 ML IV SCH (11:45)
[2016-10-15] MEDS: DOXAZOSIN MESYLATE 4 MG TAB PO SCH (12:32)
--- NOTE | 2016-10-15 16:50 | HHI.PR ---
Subjective Remarks Patient is more awake As per RN report status outpatient was choking on thin liquids and regular diet. Denies chest pain or short of breath BP very elevated in a.m. Objective Vitals Vital Signs Date Time Temp Pulse Resp B/P Pulse Ox O2 Delivery O2 Flow Rate FiO2 10/15/16 15:00 97.1 65 19 126/65 95 10/15/16 11:55 97.1 54 19 130/61 95 10/15/16 07:20 97.3 65 19 166/78 94 10/15/16 06:32 65 157/70 10/15/16 05:37 97.8 58 16 169/83 94 10/15/16 00:56 97.1 62 16 143/78 92 10/14/16 20:00 98.2 72 18 135/75 94 I/O 10/14/16 10/14/16 10/14/16 10/15/16 10/15/16 10/15/16 07:00 15:00 23:00 07:00 15:00 23:00 Intake Total 480 ml 480 ml Output Total 550 ml Balance 480 ml -550 ml 480 ml Intake Oral 480 ml 480 ml Output Urine Total 550 ml # Voids 7 2 3 3 1 # Bowel Movements 1 1 3 Result Diagram: 10/11/16 0449 10/13/16 0845 Imaging Last Impressions Chest X-Ray 10/11/16 0600 Signed Impressions: Service Date/Time: September 02:50 - CONCLUSION: 1. Worsening airspace disease in the right lower lobe and minimal density left lower lobe. Chris Cotto MD Head CT 10/07/16 0000 Signed Impressions: Service Date/Time: Friday, October 07, 2016 12:58 - CONCLUSION: No acute disease. Mattie Bourgeois MD Objective Remarks GENERAL: Awake and alert well-developed female in no apparent distress SKIN: Warm and dry. HEAD: Atraumatic. Normocephalic. EYES: Pupils equal and round. No scleral icterus. No injection or drainage. ENT: No nasal bleeding or discharge. Mucous membranes pink and moist. NECK: Trachea midline. No JVD. CARDIOVASCULAR: Normal rate, regular rhythm. RESPIRATORY: Mechanical ventilation. Clear to auscultation. Breath sounds equal bilaterally. GASTROINTESTINAL: Abdomen soft, non-tender, nondistended. No guarding. MUSCULOSKELETAL: Extremities without clubbing, cyanosis, or edema. No obvious deformities. NEUROLOGICAL: AAOx2 person and place but not to date. Following commands, moves extremities 4. Procedures none Medications and IVs Current Medications Medications (Trade) Dose Ordered Sig/Elizabet Route Start Time Stop Time Status Last Admin Sodium Chloride 2 ml 2 ml UNSCH PRN IVF 10/07/16 12:45 10/08/16 08:29 (Diprivan 1000 Mg/100ml Inj) 100 ml @ 0 mls/hr TITRATE IV 10/07/16 13:45 10/07/16 13:48 (Tylenol) 650 mg Q6H PRN PO 10/07/16 14:30 10/08/16 23:07 (Tears Naturale Opth Soln) 1 drop TID EACH EYE 10/07/16 18:00 10/15/16 14:01 (Zofran Inj) 4 mg Q6H PRN IV 10/07/16 14:30 (Colace Liq) 100 mg Q12H G-TUBE 10/07/16 18:00 10/15/16 06:08 (Dulcolax Supp) 10 mg DAILY PRN RECTAL 10/07/16 14:30 (Heparin Inj) 5,000 units Q12H SQ 10/07/16 18:00 10/15/16 06:09 Miscellaneous Information 1 Q361D XX 10/07/16 14:30 (Chlorhexidine 2% Cloth) Taper DAILY@04 TOP 10/08/16 04:00 10/04/17 03:59 10/11/16 20:14 Chlorhexidine Gluconate 3 pack 3 pack UNSCH PRN TOP 10/07/16 14:30 Midazolam HCl 100 ml @ 0 mls/hr TITRATE IV 10/07/16 14:30 10/10/16 23:21 (fentaNYL DRIP) 250 ml @ 0 mls/hr TITRATE IV 10/07/16 14:30 10/10/16 16:45 (Peridex 0.12% Liq) 15 ml BID@08,20 MT 10/07/16 20:00 10/14/16 20:00 (Ecotrin Ec) 81 mg DAILY PO 10/08/16 09:00 10/15/16 09:21 (Lipitor) 80 mg HS PO 10/07/16 21:00 10/14/16 22:55 (Symbicort 160-4.5 Inh) 2 puff BID INH 10/07/16 21:00 10/15/16 09:28 (CeleXA) 40 mg DAILY PO 10/08/16 09:00 10/15/16 09:21 (Folate) 1 mg DAILY PO 10/08/16 09:00 10/15/16 09:21 (Lopressor) 50 mg BID PO 10/07/16 21:00 10/15/16 09:21 (Dilantin) 200 mg BID PO 10/07/16 21:00 10/15/16 09:22 (Spiriva Inh) 18 mcg DAILY INH 10/08/16 09:00 10/15/16 09:28 (Theragran M Tab) 1 tab DAILY PO 10/08/16 09:00 10/15/16 09:21 (D50w (Vial) Inj) 25 ml UNSCH PRN IV PUSH 10/07/16 15:30 (Glucagon Inj) 1 mg UNSCH PRN OTHER 10/07/16 15:30 (Ativan Inj) 2 mg Q2H PRN IV PUSH 10/07/16 16:15 10/09/16 09:46 (Dulcolax Supp) 10 mg DAILY PRN RECTAL 10/08/16 08:45 (Colace Liq) 100 mg Q12HR PO 10/08/16 09:00 10/15/16 09:22 Sennosides 8.8 mg 8.8 mg DAILY PO 10/08/16 09:00 10/14/16 08:24 Levetriacetam 100 ml @ 400 mls/hr Q8H IV 10/09/16 21:00 10/15/16 14:01 Lacosamide 200 mg/ Sodium Chloride 120 ml @ 115 mls/hr Q12HR IV 10/09/16 21:00 10/15/16 09:22 Piperacillin Sod/ Tazobactam Sod 100 ml @ 200 mls/hr Q6H IV 10/10/16 10:00 10/15/16 16:28 (Zithromax Inj/ NS 250 ml Inj) 250 ml @ 250 mls/hr Q24H IV 10/10/16 11:00 10/15/16 11:45 (Topamax) 100 mg BID PO 10/13/16 21:00 10/15/16 09:32 (Cardura) 4 mg DAILY PO 10/15/16 11:00 10/15/16 12:32 Urinary Catheter: No Date of Insertion: Oct 07, 2016 Date of Removal: Oct 12, 2016 A/P Problem List: (1) Status epilepticus ICD Code: G40.901 Status: Resolved Plan: Patient was intubated and sedated in the emergency department. The patient was admitted to the intensive care unit and placed under the care of the administrative intern for ventilatory management. Neurology also was consulted. Patient was then extubated and transferred out of the intensive care unit where the hospitalist was consulted. Patient's home meds include Topamax, being packed, Keppra and Dilantin. EKG obtained on 08/08/16 showed abnormality in the right mid temporal lobe which is epileptiform. MRI showed no acute findings on 08/06/16. CT of the head no acute disease on 10/07/16. EEG obtained on 10/12/16 shows persistent of high voltage right-sided frontal discharges, however reduced in frequency and improved background appearance compared to previous EEG. Neurology increased the dose of Topamax, continue Dilantin, Vimpat and Keppra. Follow up neurology recommendations. (2) Seizure disorder ICD Code: G40.909 Status: Chronic Plan: Management as above as per neurology recommendations. (3) H/O: CVA (cerebrovascular accident) ICD Code: Z86.73 Status: Acute Plan: Continue aspirin and statin. (4) COPD (chronic obstructive pulmonary disease) ICD Code: J44.9 Status: Chronic Plan: Seems to be stable. Continue supplemental oxygen to keep oxygen saturation more than 92%, Spiriva and DuoNeb as needed. (5) Tobacco abuse ICD Code: Z72.0 Status: Acute Plan: Advised smoking cessation. Continue nicotine patch. (6) Acute hypoxemic respiratory failure ICD Code: J96.01 Status: Resolved Plan: Now resolved. Continue supplemental oxygen to keep oxygen saturation more than 92%. (7) Hyperlipidemia ICD Code: E78.5 Status: Chronic Plan: Continue statin. (8) HTN (hypertension) ICD Code: I10 Status: Chronic Plan: Patient with uncontrolled hypertension. Review of trends show blood pressure went as high as systolic 180. Patient sterile Cardura 2 mg by mouth daily on 10/14/16. 10/15 blood pressure still uncontrolled and elevated into the 160s to 170s systolic this a.m. Increase Cardura to 4 mg by mouth daily. (9) Aspiration pneumonia ICD Code: J69.0 Status: Acute Plan: Seems to be improving. Patient on day 4 of IV azithromycin and IV Zosyn. Continue for now. Assessment and Plan GI prophylaxis: I will add PPI. DVT prophylaxis: Continue SCDs, heparin subcutaneously. Discharge Planning Continue to monitor in the medical floor. DC pending neurology clearance. Patient will need PT upon discharge. manager of business to assist with placement. Problem Qualifiers (1) COPD (chronic obstructive pulmonary disease): Qualified Code: J44.9 - Chronic obstructive pulmonary disease, unspecified COPD type (2) HTN (hypertension): Qualified Code: I10 - Essential hypertension (3) Aspiration pneumonia: Qualified Code: J69.0 - Aspiration pneumonia of right lower lobe, unspecified aspiration pneumonia type Mauricio Lockwood MD Oct 15, 2016 16:50
[2016-10-15] MEDS ORDERED: PHENYTOIN SODIUM 100 MG CAP PO ONE (18:00)
[2016-10-15] MEDS ORDERED: PHENYTOIN SODIUM 100 MG CAP PO SCH (18:00)
[2016-10-15] MEDS: ATORVASTATIN 80 MG TAB PO SCH (21:22)
[2016-10-15] MEDS: PHENYTOIN SODIUM 30 MG CAP PO SCH (21:22)
[2016-10-16] VITALS: BP 117/56; PULSE 62; RESP 18; TEMP 96.6; O2SAT 93
[2016-10-16] MEDS: LACOSAMIDE INJ 200 MG in SODIUM CHLORIDE 0.9% INJ 100 ML IV SCH ×3 (00:05→23:24)
[2016-10-16] MEDS: CHLORHEXIDINE GLUCONATE 2 % 1 PACK (2 CLOTHS) TOP SCH (04:00)
[2016-10-16] MEDS: PIPERACIL-TAZO 4.5 GM PREMIX 100 ML IV SCH ×4 (04:16→23:21)
[2016-10-16] MEDS: levETIRAcetam 1000 MG INJ 100 ML IV SCH ×3 (04:16→23:21)
[2016-10-16] MEDS: HEPARIN SODIUM - SQ 10,000 UNITS/ML VIAL SQ SCH ×2 (05:59→16:58)
[2016-10-16] MEDS: DOCUSATE SODIUM 100 MG/10 ML UDC G-TUBE SCH ×2 (05:59→16:58)
[2016-10-16 06:00] VITALS: BP 99/56; PULSE 58; RESP 21; TEMP 96.5; O2SAT 94
[2016-10-16] MEDS: INSULIN NovoLIN REGULAR SUPPLEMENTAL SCALE SQ SCH ×4 (06:03→21:00)
[2016-10-16 07:15] VITALS: BP 136/66; PULSE 67; RESP 19; TEMP 97.6; O2SAT 95
[2016-10-16] MEDS: DOCUSATE SODIUM 100 MG/10 ML UDC PO SCH ×2 (10:05→23:18)
[2016-10-16] MEDS: ASPIRIN EC 81 MG TABEC PO SCH (10:06)
[2016-10-16] MEDS: CITALOPRAM HYDROBROMIDE 40 MG TAB PO SCH (10:06)
[2016-10-16] MEDS: FOLIC ACID 1 MG TAB PO SCH (10:20)
[2016-10-16] MEDS: DOXAZOSIN MESYLATE 4 MG TAB PO SCH (10:20)
[2016-10-16] MEDS: PHENYTOIN SODIUM 100 MG CAP PO SCH ×2 (10:20→23:22)
[2016-10-16] MEDS: METOPROLOL TARTRATE 50 MG TAB PO SCH ×2 (10:21→23:23)
[2016-10-16] MEDS: PHENYTOIN SODIUM 30 MG CAP PO SCH ×2 (10:21→23:22)
[2016-10-16] MEDS: MULTIVITAMINS/MINERALS THERAPEUTIC TAB PO SCH (10:21)
[2016-10-16] MEDS: SENNOSIDES SYRUP 8.8 MG/5 ML CUP PO SCH (10:21)
[2016-10-16] MEDS: TOPIRAMATE 100 MG TAB PO SCH ×2 (10:21→23:23)
[2016-10-16] MEDS: TIOTROPIUM BROMIDE 18 MCG INH INH SCH (10:22)
[2016-10-16] MEDS: ARTIFICIAL TEARS OPTH SOLN 15 ML BTL EACH EYE SCH ×3 (10:22→17:00)
[2016-10-16] MEDS: BUDESONIDE-FORMOTEROL 160/4.5 MCG INHALER INH SCH ×2 (10:23→23:41)
[2016-10-16] MEDS: CHLORHEXIDINE 0.12% (ORAL KIT) 15 ML CUP MT SCH ×2 (10:23→17:01)
[2016-10-16 11:05] VITALS: BP 116/59; PULSE 58; RESP 19; TEMP 96.9; O2SAT 95
[2016-10-16] MEDS: AZITHROMYCIN INJ 500 MG in SODIUM CHLOR 0.9% 250 ML INJ 250 ML IV SCH (13:01)
[2016-10-16 15:05] VITALS: BP 113/58; PULSE 56; RESP 19; TEMP 97.2; O2SAT 95
--- NOTE | 2016-10-16 17:16 | HHI.PR ---
Subjective Remarks Remains on IV treatments for seizure. No distress. SNF will be needed at time of discharge. Objective Vital Signs Date Time Temp Pulse Resp B/P Pulse Ox O2 Delivery O2 Flow Rate FiO2 10/16/16 15:05 97.2 56 19 113/58 95 10/16/16 11:05 96.9 58 19 116/59 95 10/16/16 07:15 97.6 67 19 136/66 95 10/16/16 06:00 96.5 58 21 99/56 94 10/16/16 00:00 96.6 62 18 117/56 93 10/15/16 20:00 98.2 84 16 131/65 94 I/O 10/15/16 10/15/16 10/15/16 10/16/16 10/16/16 10/16/16 07:00 15:00 23:00 07:00 15:00 23:00 Intake Total 480 ml 1605 ml 480 ml Output Total 550 ml 350 ml Balance -550 ml 480 ml 1605 ml -350 ml 480 ml Intake Oral 480 ml 240 ml 480 ml IV Total 1365 ml Output Urine Total 550 ml 350 ml # Voids 3 3 2 2 # Bowel Movements 1 3 0 0 Result Diagram: 10/13/16 0845 Objective Remarks GENERAL: A&Ox2, NAD SKIN: Warm and dry. HEAD: Normocephalic. EYES: No scleral icterus. No injection or drainage. NECK: Supple, trachea midline. No JVD or lymphadenopathy. CARDIOVASCULAR: Regular rate and rhythm without murmurs, gallops, or rubs. RESPIRATORY: Breath sounds equal bilaterally. No accessory muscle use. GASTROINTESTINAL: Abdomen soft, non-tender, nondistended. MUSCULOSKELETAL: No cyanosis, or edema. BACK: Nontender without obvious deformity. No CVA tenderness. Medications and IVs Administered Medications Medications (Trade) Dose Ordered Sig/Elizabet Route PRN Reason Start Time Stop Time Status Last Admin Dose Admin Sodium Chloride 2 ml 2 ml UNSCH PRN IVF FLUSH AFTER USING IV ACCESS 10/07/16 12:45 10/08/16 08:29 Propofol (Diprivan 1000 Mg/100ml Inj) 100 ml @ 0 mls/hr TITRATE IV 10/07/16 13:45 10/07/16 13:48 Acetaminophen (Tylenol) 650 mg Q6H PRN PO PAIN 1-10 AND/OR FEVER >101F 10/07/16 14:30 10/08/16 23:07 Artificial Tears (Tears Naturale Opth Soln) 1 drop TID EACH EYE 10/07/16 18:00 10/16/16 17:00 Docusate Sodium (Colace Liq) 100 mg Q12H G-TUBE 10/07/16 18:00 10/16/16 16:58 Heparin Sodium (Porcine) (Heparin Inj) 5,000 units Q12H SQ 10/07/16 18:00 10/16/16 16:58 Chlorhexidine Gluconate Taper DAILY@04 TOP 10/08/16 04:00 10/04/17 03:59 10/11/16 20:14 Midazolam HCl 100 ml @ 0 mls/hr TITRATE IV 10/07/16 14:30 10/10/16 23:21 Fentanyl Citrate (fentaNYL DRIP) 250 ml @ 0 mls/hr TITRATE IV 10/07/16 14:30 10/10/16 16:45 Chlorhexidine Gluconate (Peridex 0.12% Liq) 15 ml BID@08,20 MT 10/07/16 20:00 10/16/16 10:23 Aspirin (Ecotrin Ec) 81 mg DAILY PO 10/08/16 09:00 10/16/16 10:06 Atorvastatin Calcium (Lipitor) 80 mg HS PO 10/07/16 21:00 10/15/16 21:22 Budesonide/ Formoterol Fumarate (Symbicort 160-4.5 Inh) 2 puff BID INH 10/07/16 21:00 10/16/16 10:23 Citalopram Hydrobromide (CeleXA) 40 mg DAILY PO 10/08/16 09:00 10/16/16 10:06 Folic Acid (Folate) 1 mg DAILY PO 10/08/16 09:00 10/16/16 10:20 Metoprolol Tartrate (Lopressor) 50 mg BID PO 10/07/16 21:00 10/16/16 10:21 Tiotropium [place] (Spiriva Inh) 18 mcg DAILY INH 10/08/16 09:00 10/16/16 10:22 Multivitamins/ Minerals Therapeutic (Theragran M Tab) 1 tab DAILY PO 10/08/16 09:00 10/16/16 10:21 Lorazepam (Ativan Inj) 2 mg Q2H PRN IV PUSH SEVERE ANXIETY OR AGITATION 10/07/16 16:15 10/09/16 09:46 Docusate Sodium (Colace Liq) 100 mg Q12HR PO 10/08/16 09:00 10/16/16 10:05 Sennosides 8.8 mg 8.8 mg DAILY PO 10/08/16 09:00 10/16/16 10:21 Levetriacetam 100 ml @ 400 mls/hr Q8H IV 10/09/16 21:00 10/16/16 13:01 Lacosamide 200 mg/ Sodium Chloride 120 ml @ 115 mls/hr Q12HR IV 10/09/16 21:00 10/16/16 10:06 Piperacillin Sod/ Tazobactam Sod 100 ml @ 200 mls/hr Q6H IV 10/10/16 10:00 10/16/16 17:03 Azithromycin/ Sodium Chloride (Zithromax Inj/ NS 250 ml Inj) 250 ml @ 250 mls/hr Q24H IV 10/10/16 11:00 10/16/16 13:01 Topiramate (Topamax) 100 mg BID PO 10/13/16 21:00 10/16/16 10:21 Doxazosin Mesylate (Cardura) 4 mg DAILY PO 10/15/16 11:00 10/16/16 10:20 Phenytoin (Dilantin) 30 mg BID PO 10/15/16 21:00 10/16/16 10:21 Phenytoin (Dilantin) 200 mg BID PO 10/15/16 21:00 10/16/16 10:20 A/P Problem List: (1) Status epilepticus ICD Code: G40.901 Assessment & Plan: Resolved Follow for seizure activity (2) Seizure disorder ICD Code: G40.909 Assessment & Plan: Continue IV treatments Neurology following Will need PO options prior to discharge (3) Aspiration pneumonia ICD Code: J69.0 Assessment & Plan: azithromycin zosyn (4) H/O: CVA (cerebrovascular accident) ICD Code: Z86.73 Assessment & Plan: aspirin Statin Problem Qualifiers (1) Aspiration pneumonia: Qualified Code: J69.0 - Aspiration pneumonia of right lower lobe, unspecified aspiration pneumonia type Philip Balderrama MD Oct 16, 2016 17:16
[2016-10-16 21:30] VITALS: BP 114/65; PULSE 63; RESP 18; TEMP 97.1; O2SAT 95
[2016-10-16] MEDS: ATORVASTATIN 80 MG TAB PO SCH (23:23)
[2016-10-17 00:08] VITALS: BP 117/69; PULSE 63; RESP 18; TEMP 98.5; O2SAT 95
[2016-10-17] MEDS: CHLORHEXIDINE GLUCONATE 2 % 1 PACK (2 CLOTHS) TOP SCH (04:00)
[2016-10-17] MEDS: PIPERACIL-TAZO 4.5 GM PREMIX 100 ML IV SCH ×2 (04:33→11:58)
[2016-10-17] MEDS: levETIRAcetam 1000 MG INJ 100 ML IV SCH ×2 (04:33→14:46)
[2016-10-17 04:40] VITALS: BP 123/69; PULSE 54; RESP 20; TEMP 96.6; O2SAT 99
[2016-10-17] MEDS: INSULIN NovoLIN REGULAR SUPPLEMENTAL SCALE SQ SCH ×2 (07:00→11:00)
[2016-10-17] MEDS: DOCUSATE SODIUM 100 MG/10 ML UDC G-TUBE SCH (07:03)
[2016-10-17] MEDS: HEPARIN SODIUM - SQ 10,000 UNITS/ML VIAL SQ SCH (07:04)
[2016-10-17 07:15] VITALS: BP 109/56; PULSE 86; RESP 17; TEMP 99; O2SAT 100
[2016-10-17 07:20] VITALS: BP 129/66; PULSE 53; RESP 18; TEMP 96.4; O2SAT 96
[2016-10-17] MEDS: CHLORHEXIDINE 0.12% (ORAL KIT) 15 ML CUP MT SCH (08:00)
[2016-10-17] MEDS: DOXAZOSIN MESYLATE 4 MG TAB PO SCH (09:00)
[2016-10-17] MEDS: METOPROLOL TARTRATE 50 MG TAB PO SCH (09:00)
[2016-10-17] MEDS: LACOSAMIDE INJ 200 MG in SODIUM CHLORIDE 0.9% INJ 100 ML IV SCH (09:22)
[2016-10-17] MEDS: TOPIRAMATE 100 MG TAB PO SCH (09:22)
[2016-10-17] MEDS: FOLIC ACID 1 MG TAB PO SCH (09:23)
[2016-10-17] MEDS: ASPIRIN EC 81 MG TABEC PO SCH (09:26)
[2016-10-17] MEDS: PHENYTOIN SODIUM 30 MG CAP PO SCH (09:26)
[2016-10-17] MEDS: MULTIVITAMINS/MINERALS THERAPEUTIC TAB PO SCH (09:26)
[2016-10-17] MEDS: PHENYTOIN SODIUM 100 MG CAP PO SCH (09:28)
[2016-10-17] MEDS: CITALOPRAM HYDROBROMIDE 40 MG TAB PO SCH (09:29)
[2016-10-17] MEDS: SENNOSIDES SYRUP 8.8 MG/5 ML CUP PO SCH (09:32)
[2016-10-17] MEDS: BUDESONIDE-FORMOTEROL 160/4.5 MCG INHALER INH SCH (09:34)
[2016-10-17] MEDS: ARTIFICIAL TEARS OPTH SOLN 15 ML BTL EACH EYE SCH ×2 (09:34→13:14)
[2016-10-17] MEDS: DOCUSATE SODIUM 100 MG/10 ML UDC PO SCH (09:37)
[2016-10-17] MEDS ORDERED: DILA30CA PO (11:09)
[2016-10-17] MEDS ORDERED: TOPA100T11 PO (11:09)
[2016-10-17] MEDS ORDERED: DILA100C PO (11:09)
[2016-10-17] MEDS: TIOTROPIUM BROMIDE 18 MCG INH INH SCH (11:18)
[2016-10-17 11:30] VITALS: BP 137/76; PULSE 64; RESP 18; TEMP 96.9; O2SAT 98
[2016-10-17] MEDS: AZITHROMYCIN INJ 500 MG in SODIUM CHLOR 0.9% 250 ML INJ 250 ML IV SCH (13:14)
[2016-10-17] MEDS: ACETAMINOPHEN 325 MG TAB PO PRN (14:56)
--- NOTE | 2016-10-17 17:51 | HHI.DS ---
Discharge Summary Admission Date Oct 07, 2016 at 1:40 pm Discharge Date: Oct 17, 2016 Admitting Diagnosis status epilepticus (1) Status epilepticus ICD Code: G40.901 Diagnosis: Secondary (2) Seizure disorder ICD Code: G40.909 Diagnosis: Principal (3) H/O: CVA (cerebrovascular accident) ICD Code: Z86.73 Diagnosis: Principal (4) COPD (chronic obstructive pulmonary disease) ICD Code: J44.9 Diagnosis: Principal (5) Tobacco abuse ICD Code: Z72.0 Diagnosis: Secondary (6) Acute hypoxemic respiratory failure ICD Code: J96.01 Diagnosis: Secondary (7) Hyperlipidemia ICD Code: E78.5 Diagnosis: Secondary (8) HTN (hypertension) ICD Code: I10 Diagnosis: Secondary (9) Aspiration pneumonia ICD Code: J69.0 Diagnosis: Principal Procedures none Brief History - From Admission The patient presented to the ED with status epilepticus from her assisted living facility. This patient has significant seizure history and is on 4 different antiepileptics, recently discharged from [facility] 08/09/2016. In route to the hospital EMS gave 4 mg IM Ativan.The seizures continued. She had multiple seizures described as grand mal by paramedics in the ambulance. The patient upon admission to ED the patient was noted to be hypertensive and continued to have seizures, the patient was intubated for airway protection by ED staff and given 2 mg of Ativan IV. The patient was then placed on a propofol infusion. , neurologist was consulted. Dilantin level was obtained .Critical care medicine is consulted for ventilatory management. PFSH Past Medical History Hx Anticoagulant Therapy: Yes (325MG ASA DAILY) Arthritis: Yes Asthma: No Autoimmune Disease: No Bipolar Disorder: Yes Anxiety: No Depression: Yes Heart Rhythm Problems: No Cancer: No Cardiovascular Problems: Yes (HTN) High Cholesterol: Yes Chemotherapy: No Chest Pain: Yes Congestive Heart Failure: No COPD: No Cerebrovascular Accident: Yes (R SIDED WEAKNESS ) Diabetes: No Diminished Hearing: Yes Endocrine: No Gastrointestinal Disorders: Yes (IBS) GERD: No Glaucoma: No Genitourinary: No Headaches: Yes (once a week) Hepatitis: No Hiatal Hernia: No Hypertension: Yes Immune Disorder: No Implanted Vascular Access Dvce: No Kidney Stones: No Musculoskeletal: Yes Neurologic: Yes (SHORT TERM MEMORY LOSS ) Psychiatric: Yes Reproductive: No Respiratory: Yes Immunizations Current: No Migraines: No Myocardial Infarction: No Radiation Therapy: No Renal Failure: No Schizophrenia: Yes (SCHIZOAFFECTIVE) Seizures: Yes (EPILEPSY, RECURRENT SEIZURES) Sickle Cell Disease: No Sleep Apnea: No Thyroid Disease: No Ulcer: No Tetanus Vaccination: > 5 Years Influenza Vaccination: Yes PNEUMOCCOCAL Vaccine (Year): 2 Menopausal: Yes : 0 Tubal Ligation: Yes Past Surgical History Abdominal Surgery: No AICD: No Appendectomy: No Arteriovenous Shunt: No Cardiac Surgery: No Cholecystectomy: No Ear Surgery: Yes (bilateral) Endocrine Surgery: No Eye Surgery: No Genitourinary Surgery: No Gynecologic Surgery: Yes (tubal ligation) Hysterectomy: No Insulin Pump: No Joint Replacement: No Neurologic Surgery: No Oral Surgery: Yes (Jaw/ TMJ) Pacemaker: No Thoracic Surgery: No Other Surgery: Yes (see below) Social History Alcohol Use: No (ETOH ABUSE) Tobacco Use: Yes (1 ppd) Substance Use: No (Hx crack cocaine use) Allergies-Medications (Allergen,Severity, Reaction): Coded Allergies: Aripiprazole (Verified Allergy, Unknown, 10/07/16) Reported Meds & Prescriptions Reported Meds & Active Scripts Active Topamax (Topiramate) 50 Mg Tab 50 Mg PO BID Reported Symbicort Inh (Budesonide/Formoterol Fumarate) 160-4.5 Mcg/Act Aero 2 Puff INH BID Phenytoin Extended 200 Mg Cap 200 Mg PO BID Folate (Folic Acid) 1 Mg Tab 1 Mg PO DAILY Vitamin E 1,000 Unit Cap 1,000 Units PO DAILY Vimpat (Lacosamide) 100 Mg Tab 100 Mg PO TID Ventolin Hfa 18 GM Inh (Albuterol Sulfate) 90 Mcg/Act Aer 2 Puff INH QID Trazodone (Trazodone HCl) 100 Mg Tab 200 Mg PO HS Spiriva Handihaler (Tiotropium Inh) 18 Mcg Cap 1 Cap INH DAILY DO NOT SWALLOW CAPS Protonix (Pantoprazole Sodium) 40 Mg Tab 40 Mg PO DAILY Metoprolol Tartrate 50 Mg Tab 50 Mg PO BID Lisinopril 20 Mg Tab 20 Mg PO DAILY Levetiracetam 1,000 Mg Tab 1,000 Mg PO TID Donepezil 10 Mg Tab 10 Mg PO BID Colace (Docusate Sodium) 100 Mg Cap 100 Mg PO BID Citalopram (Citalopram Hydrobromide) 40 Mg Tab 40 Mg PO DAILY Atorvastatin (Atorvastatin Calcium) 80 Mg Tab 80 Mg PO HS Aspirin EC (Aspirin) 81 Mg Tabdr 81 Mg PO DAILY Review of Systems ROS Limitations: Clinical Condition, Altered Mental Status, Poor Historian Eyes: No: Visual changes Musculoskeletal: No: Pain Neurologic: Positive: Seizures CBC/BMP: 10/13/16 0845 Significant Findings Laboratory Tests Test 10/15/16 08:00 Phenytoin (Dilantin) Level 9.8 MCG/ML (10.0-20.0) Imaging Last Impressions Chest X-Ray 10/11/16 0600 Signed Impressions: Service Date/Time: September 02:50 - CONCLUSION: 1. Worsening airspace disease in the right lower lobe and minimal density left lower lobe. Chris Cotto MD Head CT 10/07/16 0000 Signed Impressions: Service Date/Time: Friday, October 07, 2016 12:58 - CONCLUSION: No acute disease. Mattie Bourgeois MD PE at Discharge GENERAL: Awake and alert well-developed female in no apparent distress, global weakness SKIN: Warm and dry. HEAD: Atraumatic. Normocephalic. EYES: Pupils equal and round. No scleral icterus. No injection or drainage. ENT: No nasal bleeding or discharge. Mucous membranes pink and moist. NECK: Trachea midline. No JVD. CARDIOVASCULAR: Normal rate, regular rhythm. RESPIRATORY: Mechanical ventilation. Clear to auscultation. Breath sounds equal bilaterally. GASTROINTESTINAL: Abdomen soft, non-tender, nondistended. No guarding. MUSCULOSKELETAL: Extremities without clubbing, cyanosis, or edema. No obvious deformities. NEUROLOGICAL: AAOx2 person and place but not to date. Following commands, moves extremities 4. Pt update on day of discharge Medically stable for discharge today. No further seizure activity on present treatments. Treatments convered to PO. Hospital Course Mrs. Hernandez is a 61 year old female with a history of CVA. She was admitted with Status Epilepticus and has an underlying seizure disorder. Related aspiration with aspiration pneumonia occured. She has been treated completely for her pneumonia and is improving slowly, regarding associated deblitations and weakness, with PT now. She is ready for discharge to SNF today. No distress. Pt Condition on Discharge: Stable Discharge Disposition: Discharge to SNF Discharge Time: > 30 minutes Discharge Instructions DIET: Follow Instructions for: Heart Healthy Diet Activities you can perform: Regular-No Restrictions Other Activity Instructions: with assistance Follow up Referrals: PCP Follow-up - 2 Weeks New Medications: Phenytoin Extended (Dilantin) 100 Mg Cap 200 MG PO BID Seizure Control #60 CAP Phenytoin Extended (Dilantin) 30 Mg Cap 30 MG PO BID Seizure Control #60 CAP Topiramate (Topamax) 100 Mg Tab 100 MG PO BID Seizure Control #60 TAB Continued Medications: Albuterol 18 GM Inh (Ventolin Hfa 18 GM Inh) 90 Mcg/Act Aer 2 PUFF INH QID SHORTNESS OF BREATH #1 Ref [address] (Aspirin EC) 81 Mg Tabdr 81 MG PO DAILY Ref 0 TAB Atorvastatin (Atorvastatin) 80 Mg Tab 80 MG PO HS Cholesterol Management #30 Ref 0 TAB Budesonide-Formoterol Inh (Symbicort Inh) 160-4.5 Mcg/Act Aero 2 PUFF INH BID #1 Ref 0 INHALER Citalopram (Citalopram) 40 Mg Tab 40 MG PO DAILY Control Depression #30 Ref 0 TAB Docusate Sodium (Colace) 100 Mg Cap 100 MG PO BID Constipation #60 Ref 0 CAP Folic Acid (Folate) 1 Mg Tab 1 MG PO DAILY Nutritional Supplement Ref 0 TAB Lacosamide (Vimpat) 100 Mg Tab 100 MG PO TID Control Seizures #60 Ref 0 TAB Levetiracetam (Levetiracetam) 1,000 Mg Tab 1000 MG PO TID Control Seizures #90 Ref 0 TAB Metoprolol Tartrate (Metoprolol Tartrate) 50 Mg Tab 50 MG PO BID #60 Ref 0 TAB Tiotropium Inh (Spiriva Handihaler) 18 Mcg Cap 1 CAP INH DAILY DO NOT SWALLOW CAPS COPD #30 Ref 0 CAP Discontinued Medications: Donepezil (Donepezil) 10 Mg Tab 10 MG PO BID Dementia #30 Ref 0 TAB Lisinopril (Lisinopril) 20 Mg Tab 20 MG PO DAILY #30 Ref 0 TAB Pantoprazole (Protonix) 40 Mg Tab 40 MG PO DAILY Reflux #30 Ref 0 TAB Phenytoin Extended (Phenytoin Extended) 200 Mg Cap 200 MG PO BID Control Seizures #90 Ref 0 CAP Topiramate (Topamax) 50 Mg Tab 50 MG PO BID Control Seizures #60 Ref 0 TAB Trazodone (Trazodone) 100 Mg Tab 200 MG PO HS Control Depression #30 Ref 0 TAB Vitamin E (Vitamin E) 1,000 Unit Cap 1000 UNITS PO DAILY Tardive Dyskinesia Ref 0 CAP Philip Balderrama MD Oct 17, 2016 5:51 pm
== END 2016-10-17 17:08 | DRG 100 ==
LOC: NEPE 12:14 → NEDA 13:40 → HIMN 15:10 → N05A 10-12 23:39
PROVIDERS: ADMIT Hospitalist; ATTEND Hospitalist
PROC: 5A1955Z Respiratory Ventilation, Greater than 96 Consecutive Hours (ICD-10-PCS; principal; 2016-10-07)
PROC: 0BH17EZ Insertion of Endotracheal Airway into Trachea, Via Natural or Artificial Opening (ICD-10-PCS; 2016-10-07)
PROC: 0T9B70Z Drainage of Bladder with Drainage Device, Via Natural or Artificial Opening (ICD-10-PCS; 2016-10-07)
DX: G40.901 Epilepsy, unspecified, not intractable, with status epilepticus (principal); J96.01 Acute respiratory failure with hypoxia; J69.0 Pneumonitis due to inhalation of food and vomit; E87.1 Hypo-osmolality and hyponatremia; I69.351 Hemiplegia and hemiparesis following cerebral infarction affecting right dominant side; I69.311 Memory deficit following cerebral infarction; J44.9 Chronic obstructive pulmonary disease, unspecified; F03.90 Unspecified dementia, unspecified severity, without behavioral disturbance, psychotic disturbance, mood disturbance, and anxiety; I10 Essential (primary) hypertension; Z78.1 Physical restraint status; M19.90 Unspecified osteoarthritis, unspecified site; F31.9 Bipolar disorder, unspecified; E78.00 Pure hypercholesterolemia, unspecified; H91.90 Unspecified hearing loss, unspecified ear; F25.9 Schizoaffective disorder, unspecified; F10.10 Alcohol abuse, uncomplicated; F17.200 Nicotine dependence, unspecified, uncomplicated; Z79.82 Long term (current) use of aspirin; Z88.8 Allergy status to other drugs, medicaments and biological substances; M26.609 Unspecified temporomandibular joint disorder, unspecified side; E78.5 Hyperlipidemia, unspecified; N28.9 Disorder of kidney and ureter, unspecified; I25.10 Atherosclerotic heart disease of native coronary artery without angina pectoris; K58.9 Irritable bowel syndrome, unspecified
CPT/HCPCS: 31500; 36600; 51702; 70450; 71010; 76937; 80048; 80076; 80177; 80185; 80307; 81001; 82805; 82948; 83735; 84100; 85025; 85027; 87040; 87086; 87641; 93005; 94002; 94003; 94150; 94640; 94664; 95819; 96374; 99292; C9113; C9254; J0330; J0456; J1165; J1644; J1953; J2060; J2250; J2543; J3010; J7030; J7050

== ENCOUNTER 2016-12-06 23:38 | Observation (INO) | payer MEDICARE ==
[~2016-12-06] VITALS: Ht 170.2 cm; Wt 55.0 kg
[~2016-12-06 23:38] MED LIST changes: +DILA100C PO; +DILA30CA PO; -DONE10TA7 PO; -LISI-515 PO; -PHEN200C3 PO; -PROT40TA PO; +TOPA100T11 PO; -TOPA50TA7 PO; -TRAZ100T4 PO; -VITA10006 PO
[2016-12-06 23:46] VITALS: BP 136/72; PULSE 47; RESP 18; TEMP 98.6; O2SAT 97
[2016-12-07] VITALS (10 sets, daily range): BP systolic 108–163; BP diastolic 55–72; PULSE 47–80; RESP 18–20; TEMP 96.3–98.3; O2SAT 96–100
[2016-12-07] MEDS ORDERED: COLA100C PO (00:04)
[2016-12-07] MEDS ORDERED: FOLI1TAB6 PO (00:04)
--- NOTE | 2016-12-07 00:05 | PD ---
HPI Chief Complaint: Fall Time Seen by Provider: 23:51 Travel History International Travel<30 days: No Contact w/Intl Traveler<30days: No Traveled to known affect area: No History of Present Illness HPI 61yo F with PMH of seizure on 4 seizure medications, schizophrenia, HTN presents to the ED from [facility] rehab after a fall today. It was not a witnessed fall, staff heard the sound. Pt states she had a seizure for 2 hours but it was not witnessed and unsure how she would know. When [facility] arrived , they put a cervical spine collar on the patient. Pt denies any complaints. Denies any fever, chest pain, sob, n/v, abdominal pain, focal weakness or numbness. Pt is AAOx2. The staff states that she has more slurred speech compare to normal. PFSH Past Medical History Hx Anticoagulant Therapy: Yes (325MG ASA DAILY) Arthritis: Yes Asthma: No Autoimmune Disease: No Bipolar Disorder: Yes Anxiety: No Depression: Yes Heart Rhythm Problems: No Cancer: No Cardiovascular Problems: Yes (HTN) High Cholesterol: Yes Chemotherapy: No Chest Pain: Yes Congestive Heart Failure: No COPD: No Cerebrovascular Accident: Yes (R SIDED WEAKNESS ) Diabetes: No Diminished Hearing: Yes Endocrine: No Gastrointestinal Disorders: Yes (IBS) GERD: No Glaucoma: No Genitourinary: No Headaches: Yes (once a week) Hepatitis: No Hiatal Hernia: No Hypertension: Yes Immune Disorder: No Implanted Vascular Access Dvce: No Kidney Stones: No Musculoskeletal: Yes Neurologic: Yes (SHORT TERM MEMORY LOSS ) Psychiatric: Yes Reproductive: No Respiratory: Yes Immunizations Current: No Migraines: No Myocardial Infarction: No Radiation Therapy: No Renal Failure: No Schizophrenia: Yes (SCHIZOAFFECTIVE) Seizures: Yes (EPILEPSY, RECURRENT SEIZURES) Sickle Cell Disease: No Sleep Apnea: No Thyroid Disease: No Ulcer: No PNEUMOCCOCAL Vaccine (Year): 2 Menopausal: Yes : 0 Tubal Ligation: Yes Past Surgical History Abdominal Surgery: No AICD: No Appendectomy: No Arteriovenous Shunt: No Cardiac Surgery: No Cholecystectomy: No Ear Surgery: Yes (bilateral) Endocrine Surgery: No Eye Surgery: No Genitourinary Surgery: No Gynecologic Surgery: Yes (tubal ligation) Hysterectomy: No Insulin Pump: No Joint Replacement: No Neurologic Surgery: No Oral Surgery: Yes (Jaw/ TMJ) Pacemaker: No Thoracic Surgery: No Other Surgery: Yes (see below) Social History Alcohol Use: No (ETOH ABUSE) Tobacco Use: Yes (1 ppd) Substance Use: No (Hx crack cocaine use, + this admission) Allergies-Medications (Allergen,Severity, Reaction): Coded Allergies: Aripiprazole (Verified Allergy, Unknown, 12/07/16) Reported Meds & Prescriptions Reported Meds & Active Scripts Active Dilantin (Phenytoin Extended) 30 Mg Cap 30 Mg PO BID Dilantin (Phenytoin Extended) 100 Mg Cap 200 Mg PO BID Topamax (Topiramate) 100 Mg Tab 100 Mg PO BID Reported Folic Acid 1 Mg Tablet 1 Mg PO DAILY Colace (Docusate Sodium) 100 Mg Capsule 100 Mg PO DAILY Symbicort Inh (Budesonide/Formoterol Fumarate) 160-4.5 Mcg/Act Aero 2 Puff INH BID Vimpat (Lacosamide) 100 Mg Tab 100 Mg PO TID Ventolin Hfa 18 GM Inh (Albuterol Sulfate) 90 Mcg/Act Aer 2 Puff INH QID Spiriva Handihaler (Tiotropium Inh) 18 Mcg Cap 1 Cap INH DAILY DO NOT SWALLOW CAPS Metoprolol Tartrate 50 Mg Tab 50 Mg PO BID Levetiracetam 1,000 Mg Tab 1,000 Mg PO TID Citalopram (Citalopram Hydrobromide) 40 Mg Tab 40 Mg PO DAILY Atorvastatin (Atorvastatin Calcium) 80 Mg Tab 80 Mg PO HS Aspirin EC (Aspirin) 81 Mg Tabdr 81 Mg PO DAILY Review of Systems Except as stated in HPI: all other systems reviewed are Neg Physical Exam Narrative GENERAL: 61yo F not in distress. SKIN: Focused skin assessment warm/dry. HEAD: Atraumatic. Normocephalic. EYES: Pupils equal and round. EOMI. No scleral icterus. No injection or drainage. ENT: No nasal bleeding or discharge. Mucous membranes pink and moist. NECK: Trachea midline. No JVD. CARDIOVASCULAR: Regular rate and rhythm. No murmur appreciated. RESPIRATORY: No accessory muscle use. Clear to auscultation. Breath sounds equal bilaterally. GASTROINTESTINAL: Abdomen soft, non-tender, nondistended. No rebound tenderness or guarding. MUSCULOSKELETAL: No obvious deformities. No clubbing. No cyanosis. No edema. NEUROLOGICAL: Awake and alert. No obvious cranial nerve deficits. Motor grossly within normal limits. AAOx2. PSYCHIATRIC: Appropriate mood and affect; insight and judgment normal. Pt does have some lip smacking, likely side effects of antipsychotics. Data Data Last Documented VS Vital Signs Date Time Temp Pulse Resp B/P Pulse Ox O2 Delivery O2 Flow Rate FiO2 12/06/16 23:51 47 18 97 Room Air 12/06/16 23:46 98.6 136/[address] Brain W/O Iv Contrast(Rout) (12/06/16 ) Ct Cerv Spine W/O Contrast (12/06/16 ) Complete Blood Count With Diff (12/06/16 23:59) Basic Metabolic Panel (Bmp) (12/06/16 23:59) Magnesium (Mg) (12/06/16 23:59) Phenytoin (Dilantin) (12/06/16 23:59) Topiramate (Topamax) (12/06/16 23:59) Electrocardiogram (12/07/16 ) Urinalysis - C+S If Indicated (12/07/16 01:47) Drug Screen, Random Urine (12/07/16 01:47) Admit Order (Ed Use Only) (12/07/16 01:49) Labs Laboratory Tests Test 12/07/16 00:10 White Blood Count 5.2 TH/MM3 Red Blood Count 4.15 MIL/MM3 Hemoglobin 13.1 GM/DL Hematocrit 37.4 % Mean Corpuscular Volume 90.0 FL Mean Corpuscular Hemoglobin 31.6 PG Mean Corpuscular Hemoglobin 35.1 % Concent Red Cell Distribution Width 14.4 % Platelet Count 225 TH/MM3 Mean Platelet Volume 8.2 FL Neutrophils (%) (Auto) 54.4 % Lymphocytes (%) (Auto) 31.6 % Monocytes (%) (Auto) 11.2 % Eosinophils (%) (Auto) 1.8 % Basophils (%) (Auto) 1.0 % Neutrophils # (Auto) 2.8 TH/MM3 Lymphocytes # (Auto) 1.7 TH/MM3 Monocytes # (Auto) 0.6 TH/MM3 Eosinophils # (Auto) 0.1 TH/MM3 Basophils # (Auto) 0.1 TH/MM3 CBC Comment DIFF FINAL Differential Comment Sodium Level 143 MEQ/L Potassium Level 4.8 MEQ/L Chloride Level 108 MEQ/L Carbon Dioxide Level 28.3 MEQ/L Anion Gap 7 MEQ/L Blood Urea Nitrogen 20 MG/DL Creatinine 0.66 MG/DL Estimat Glomerular Filtration 90 ML/MIN Rate Random Glucose 88 MG/DL Calcium Level 8.3 MG/DL Magnesium Level 2.2 MG/DL Phenytoin (Dilantin) Level 36.2 MCG/ML [facility] Medical Decision Making Medical Screen Exam Complete: Yes Emergency Medical Condition: Yes Interpretation(s) EKG: Sinus bradycardia at 49bpm. Normal axis. Prolonged QTc 479ms. No ST segment elevation or depression. Differential Diagnosis Seizure vs. electrolyte abnormality vs. dilantin toxicity Narrative Course 61yo F with seizure disorder on 4 different seizure medication (keppra, vimpat, phenytoin, topiramate) here with fall and possible seizure. Also noted to have more slurred speech as per staff at prison. CT cspine showed no fracture or acute appearing malalignment of the cervical spine. Degenerative changes. CT brain showed no bleed or other acute intracranial abnormality. Labs reviewed , no leukocytosis. BMP unremarkable. Magnesium 2.2. Dilantin level is 36.2. Pt has bradycardia, prolong QTc which can result from dilantin toxicity. I reviewed pt's vital signs and she is normally not bradycardic in the 40s. I do not appreciate the slurred speech but as per staff, her speech is more slurred and that can be from dilantin toxicity as well. Pt states the staff gives her the medications and she does not want to hurt herself or others. Will admit pt for observation with telemetry. Diagnosis Primary Impression: Dilantin toxicity Qualified Code: T42.0X1A - Dilantin toxicity, accidental or unintentional, initial encounter Admitting Information Admitting Physician Requests: Lissette Escobar DO Dec 07, 2016 00:05
[2016-12-07 00:24] LABS: AUTOMATED NEUTROPHIL # 2.8 TH/MM3 (1.8-7.7); BASOPHIL # 0.1 TH/MM3 (0-0.2); EOSINOPHIL # 0.1 TH/MM3 (0-0.4); EOSINOPHIL % 1.8 % (0.0-4.0); HEMATOCRIT 37.4 % (35.0-46.0); HEMO FLAGS DIFF FINAL; LYMPH % 31.6 % (9.0-44.0); LYMPHOCYTE # 1.7 TH/MM3 (1.0-4.8); MEAN CORPUSCULAR HEMOGLOBIN 31.6 PG (27.0-34.0); MEAN CORPUSCULAR HGB CONC 35.1 % (32.0-36.0); MONO % 11.2 % (0.0-8.0); NEUT % 54.4 % (16.0-70.0); PLATELET COUNT 225 TH/MM3 (150-450); RED BLOOD COUNT 4.15 MIL/MM3 (4.00-5.30); RED CELL DISTRIBUTION WIDTH 14.4 % (11.6-17.2); WHITE BLOOD COUNT 5.2 TH/MM3 (4.0-11.0)
--- NOTE | 2016-12-07 00:47 | RADRPT ---
EXAM DATE/TIME: 12/07/2016 00:26 [facility] COMPARISON: CT BRAIN W/O CONTRAST, October 07, 2016, 12:58. INDICATIONS : Trauma, unwitnessed fall. Possible seizure. RADIATION DOSE: 30.61 CTDIvol (mGy) MEDICAL HISTORY : Hypertension. Seizures. Cerebrovascular disease. SURGICAL HISTORY : None. ENCOUNTER: Initial ACUITY: 1 day PAIN SCALE: 0/10 LOCATION: cranial TECHNIQUE: Multiple contiguous axial images were obtained of the head. Using automated exposure control and adj ustment of the mA and/or kV according to patient size, radiation dose was kept as low as reasonably a chievable to obtain optimal diagnostic quality images. FINDINGS: CEREBRUM: The ventricles are normal for age. No evidence of midline shift, mass lesion, hemorrhage or acute in farction. No extra-axial fluid collections are seen. POSTERIOR FOSSA: The cerebellum and brainstem are intact. The 4th ventricle is midline. The cerebellopontine angle i s unremarkable. EXTRACRANIAL: The visualized portion of the orbits is intact. SKULL: The calvaria is intact. No evidence of skull fracture. CONCLUSION: No bleed or other acute intracranial abnormality. Ernesto Parham MD on December 07, 2016 at 0:45 Board Certified Radiologist. This report was verified electronically.
--- NOTE | 2016-12-07 00:52 | RADRPT ---
EXAM DATE/TIME: 12/07/2016 00:26 [facility] COMPARISON: CT CERVICAL SPINE W/O CONTRAST, April 04, 2015, 14:35. INDICATIONS : Trauma fall. RADIATION DOSE: 18.65 CTDIvol (mGy) MEDICAL HISTORY : Cerebrovascular disease. Seizures. Hypertension. SURGICAL HISTORY : Carotid stent. ENCOUNTER: Initial ACUITY: 1 day PAIN SCALE: 0/10 LOCATION: neck TECHNIQUE: Volumetric scanning of the cervical spine was performed. Multiplanar reconstructions in the sagittal, coronal and oblique axial planes were performed. Using automated exposure control and adjustment o f the mA and/or kV according to patient size, radiation dose was kept as low as reasonably achievable to obtain optimal diagnostic quality images. FINDINGS: A couple millimeters of degenerative appearing retrolisthesis seen at C3/C4 and C4/C5. No fracture or acute appearing malalignment seen. Vertebral bodies have normal height. Multilevel disc space narrowing with uncovertebral and facet osteoarthritis noted, moderate at C4/C5 and mild to moderate at C3/C4, C5/C6 and C6/C7. There is bilateral foraminal stenosis at C4/C5 and le ft foraminal stenosis at C5/C6. 6 mm nodule seen in the right thyroid lobe. Patulous appearing esophagus. Right carotid stent. There is atherosclerotic plaque of the left carotid bifurcation area. CONCLUSION: 1. No fracture or acute appearing malalignment of the cervical spine. Degenerative changes as above. Ernesto Parham MD on December 07, 2016 at 0:47 Board Certified Radiologist. This report was verified electronically.
[2016-12-07 00:57] LABS: BICARBONATE 28.3 MEQ/L (21.0-32.0); MAGNESIUM 2.2 MG/DL (1.5-2.5); POTASSIUM 4.8 MEQ/L (3.5-5.1)
[2016-12-07] MEDS ORDERED: LACTULOSE SYRUP 20 GM/30 ML CUP PO PRN (02:15)
[2016-12-07] MEDS ORDERED: ACETAMINOPHEN 325 MG TAB PO PRN (02:15)
[2016-12-07] MEDS ORDERED: ONDANSETRON HCL 4 MG/2 ML VIAL IVP PRN (02:15)
[2016-12-07] MEDS ORDERED: LORazepam 2 MG/ML VIAL IV PUSH PRN ×2 (02:15→17:30)
[2016-12-07] MEDS ORDERED: BISACODYL 10 MG SUPP RECTAL PRN (02:15)
[2016-12-07] MEDS ORDERED: SODIUM CHLORIDE 0.9% FLUSH 10 ML FLUSH IV FLUSH PRN (02:15)
[2016-12-07] MEDS ORDERED: SENNOSIDES 8.6 MG TAB PO PRN (02:15)
[2016-12-07] MEDS ORDERED: MAGNESIUM HYDROXIDE SUSP 30 ML CUP PO PRN (02:15)
[2016-12-07] MEDS: SODIUM CHLOR 0.9% 1000 ML INJ 1,000 ML IV SCH ×3 (03:00→21:01)
--- NOTE | 2016-12-07 04:28 | HHI.HP ---
[facility] [place] [facility] Primary Care Physician No Primary Care Physician Admission Diagnosis Dilantin toxicity Diagnoses: (1) Seizure disorder Diagnosis: Principal (2) Dilantin toxicity Diagnosis: Principal (3) COPD (chronic obstructive pulmonary disease) Diagnosis: Principal (4) HTN (hypertension) Diagnosis: Principal (5) Schizophrenia Diagnosis: Principal Travel History International Travel<30 Days: No Contact w/Intl Traveler <30 Da: No Traveled to Known Affected Are: No History of Present Illness This is a 61-year-old female with a PMH of HTN, Schizophrenia, Seizure Disorder , Alcohol Abuse, Tobacco Abuse and h/o Cocaine Abuse who was brought to the ER by EMS from SNF secondary to fall. Per report, fall was unwitnessed, however pt reported episode of seizure activity for approx 2 hours, . Noted by staff to have mild post-ictal state. Awake, alert and at baseline while in ER. On arrival, BP 136/72, HR 47, O2 sat 97% on RA, Afebrile. HR currently 80. CBC unremarkable. Chemistry essentially unremarkable except for BUN 20. Phenytoin level XXXVI.2. Vomax level pending. CT Head with no acute findings. CT C- spine negative for fracture or malalignment. Review of Systems Except as stated in HPI: all other systems reviewed are Neg ROS: 14 point review of systems otherwise negative. Past Family Social History Past Medical History PMH: HTN, Schizophrenia, Seizure Disorder, Alcohol Abuse, Tobacco Abuse and h/ o Cocaine Abuse Past Surgical History PAST SURGICAL HISTORY: Tubal Ligation, Jaw Surgery Allergies: Coded Allergies: Aripiprazole (Verified Allergy, Unknown, 12/07/16) Family History PAST FAMILY HISTORY: Reviewed. No h/o DM or CAD Social History PAST SOCIAL HISTORY: History of alcohol abuse, unclear if ongoing abuse. Smokes 1ppd. H/o Cocaine Abuse. Physical Exam Vital Signs Vital Signs Date Time Temp Pulse Resp B/P Pulse Ox O2 Delivery O2 Flow Rate FiO2 12/07/16 04:15 96.3 53 18 138/67 99 12/07/16 03:21 80 12/07/16 03:00 98.1 54 18 163/72 100 6/8/17 23:51 47 18 97 Room Air 12/06/16 23:46 98.6 47 18 136/72 97 Physical Exam PE: GENERAL: Middle-aged white female in no acute distress. HEENT: PERRLA, EOMI. No scleral icterus or conjunctival pallor. No lid lag or facial droop. CARDIOVASCULAR: Regular rate and rhythm. No obvious murmurs to auscultation. No chest tenderness to palpation. RESPIRATORY: No obvious rhonchi or wheezing. Clear to auscultation. Breath sounds equal bilaterally. GASTROINTESTINAL: Abdomen soft, non-tender, nondistended. BS normal. MUSCULOSKELETAL: Extremities without clubbing, cyanosis, or edema. No obvious deformities. NEUROLOGICAL: Awake, alert, tangential. No focal neurologic deficits. Moving both upper and lower extremities spontaneously. Laboratory Laboratory Tests Test 12/07/16 00:10 White Blood Count 5.2 Red Blood Count 4.15 Hemoglobin 13.1 Hematocrit 37.4 Mean Corpuscular Volume 90.0 Mean Corpuscular Hemoglobin 31.6 Mean Corpuscular Hemoglobin 35.1 Concent Red Cell Distribution Width 14.4 Platelet Count 225 Mean Platelet Volume 8.2 Neutrophils (%) (Auto) 54.4 Lymphocytes (%) (Auto) 31.6 Monocytes (%) (Auto) 11.2 Eosinophils (%) (Auto) 1.8 Basophils (%) (Auto) 1.0 Neutrophils # (Auto) 2.8 Lymphocytes # (Auto) 1.7 Monocytes # (Auto) 0.6 Eosinophils # (Auto) 0.1 Basophils # (Auto) 0.1 CBC Comment DIFF FINAL Differential Comment Sodium Level 143 Potassium Level 4.8 Chloride Level 108 Carbon Dioxide Level 28.3 Anion Gap 7 Blood Urea Nitrogen 20 Creatinine 0.66 Estimat Glomerular Filtration 90 Rate Random Glucose 88 Calcium Level 8.3 Magnesium Level 2.2 Phenytoin (Dilantin) Level 36.2 Result Diagram: 12/07/16912/07/16 001 Assessment and Plan Problem List: (1) Seizure disorder ICD Code: G40.909 Status: Chronic (2) Dilantin toxicity ICD Code: T42.0X1A Status: Acute (3) Schizophrenia ICD Code: F20.9 Status: Acute (4) HTN (hypertension) ICD Code: I10 Status: Chronic (5) COPD (chronic obstructive pulmonary disease) ICD Code: J44.9 Status: Chronic (6) Tobacco abuse ICD Code: Z72.0 Status: Acute Assessment and Plan A/P: 1. Seizure Disorder: on multiple antiepileptic medications, previous admit for Status Epilepticus, pt reports seizure x2 hours at Rehab, however unwitnessed. Currently at baseline. CT Head/C-Spine w/ no acute findings, images reviewed by me. Resume home antiepileptics, hold Dilantin in light of elevated levels. Consult Neurology for further recommendations. Seizure Precautions, Ativan prn. H/o Cocaine Abuse, will obtain U/a, Urine Drug Screen. 2. Dilantin Toxicity: Dilantin level 36.2, will repeat level in am, hold Dilantin. Episode of bradycardia upon arrival w/ HR 40's, now resolved, HR 80' s. Will monitor on telemetry. 3. Schizophrenia: At baseline, resume home medications. 4. HTN: BP 120-130's, will monitor, resume home meds. 5. COPD: Chronic Respiratory Failure, stable. Resume home MDI/Nebs. 6. Tobacco Abuse: Pt counselled. NicoDerm/Ativan prn if needed. 7. DVT Prophylaxis: SCD/teds. 8. Social work for DC planning as needed. 9. Discussed at length with ER physician. Problem Qualifiers (1) Dilantin toxicity: Qualified Code: T42.0X1A - Dilantin toxicity, accidental or unintentional, initial encounter Adriane Schultz MD Dec 07, 2016 04:28
[2016-12-07 07:30] LABS: BACTERIA, URINE OCC /hpf; BLOOD, URINE NEG (NEG); COMMENT (UR) CULTURE INDICATED; CULTURE IF INDICATED CULTURE INDICATED; GLUCOSE,URINE NEG (NEG); KETONE, URINE NEG (NEG); NITRITE,URINE NEG (NEG); SQUAMOUS EPITHELIAL CELL URINE 60 /hpf (0-5); URINE COLOR YELLOW (YELLW/STRAW)
[2016-12-07 08:00] LABS: AMPHETAMINE, URINE NEG (NEG); BARBITURATES, URINE NEG (NEG); COCAINE, URINE NEG (NEG)
[2016-12-07] MEDS: SODIUM CHLORIDE 0.9% FLUSH 10 ML FLUSH IV FLUSH SCH ×2 (08:51→20:51)
[2016-12-07] MEDS: ASPIRIN EC 81 MG TABEC PO SCH (08:52)
[2016-12-07] MEDS: levETIRAcetam 500 MG TAB PO SCH ×3 (08:52→17:38)
[2016-12-07] MEDS: FOLIC ACID 1 MG TAB PO SCH (08:52)
[2016-12-07] MEDS: ALBUTEROL SULFATE 90 MCG/ACT HFA 8 GM INHALER INH SCH ×4 (08:52→21:00)
[2016-12-07] MEDS: TIOTROPIUM BROMIDE 18 MCG INH INH SCH (08:52)
[2016-12-07] MEDS: DOCUSATE SODIUM 50 MG/SENNA 8.6 MG TAB PO SCH ×2 (08:52→21:00)
[2016-12-07] MEDS: METOPROLOL TARTRATE 50 MG TAB PO SCH ×2 (08:52→21:00)
[2016-12-07] MEDS: BUDESONIDE-FORMOTEROL 160/4.5 MCG INHALER INH SCH ×2 (08:52→21:00)
[2016-12-07] MEDS: LACOSAMIDE 100 MG TAB PO SCH ×3 (09:43→17:38)
[2016-12-07] MEDS: TOPIRAMATE 100 MG TAB PO SCH ×2 (09:44→21:00)
[2016-12-07] MEDS: cefTRIAXone INJ 1,000 MG in SODIUM CHLORIDE 0.9% INJ 100 ML IV SCH (13:44)
--- NOTE | 2016-12-07 17:29 | EKG ---
Date Performed: 12/07/2016 Time Performed: 04:22:19 PTAGE: 61 years EKG: SINUS BRADYCARDIA MODERATE T-WAVE ABNORMALITY, CONSIDER ANTERIOR ISCHEMIA ABNORMAL ECG Comp ared to prior tracing no significant change DOCTOR: Lynne Posey Interpretating Date/Time 12/07/2016 17:27:00
--- NOTE | 2016-12-07 17:33 | EKG ---
Date Performed: 12/07/2016 Time Performed: 00:50:52 PTAGE: 61 years EKG: SINUS BRADYCARDIA PROLONGED QT INTERVAL ABNORMAL ECG PREVIOUS TRACING : 10/07/2016 17.46 Compared to prior tracing no significant change DOCTOR: Lynne Posey Interpretating Date/Time 12/07/2016 17:32:41
--- NOTE | 2016-12-07 17:42 | MB ---
cc: SAM GARCIA DATE OF CONSULTATION 12/07/16 REASON FOR CONSULTATION Dilantin toxicity, history of seizures HISTORY OF PRESENT ILLNESS Ms. Hernandez is a 61-year-old woman known to me who has a long history of seizure disorder for which she takes Dilantin. She came to the ER after feeling dizzy with numerous falls as well as recurrent seizure activity for a couple of hours. She was found to be toxic on Dilantin with a level of 38.7 and her Dilantin has been on hold. NEUROLOGIC EXAMINATION Vital signs: Blood pressure 120/55, pulse 56, respiratory rate 18, temperature 97 degrees. Higher cortical function - she is lethargic but arousable. She is oriented x3. Follows commands. Cranial nerves: The extraocular movements are intact, but she does have first-degree nystagmus bilaterally. Pupils are equal, reactive. Motor exam - 5/5 strength of all groups. There is no drift. Fine motor skills are normal. Reflexes are symmetric. She had mild dysmetria on cerebellar testing. IMAGING STUDIES CT of the brain - no acute changes present. CT cervical spine - mild cervical spondylosis, no fracture. LABORATORY DATA Dilantin level 38.7. Tox screen otherwise negative. CBC White count is 5200, hemoglobin 13, hematocrit 37%, platelet count 225,000. Sodium is 143, potassium 4.8, chloride 108, CO2 28, BUN is 20, creatinine 0.66, calcium 8.2. IMPRESSION Dilantin toxicity RECOMMENDATIONS Hold Dilantin until the level is less than 20 then resume [address] We will place the patient under seizure precautions as well. MD ELENA Banerjee/ /5:28 PM /5:32 PM
[2016-12-07] MEDS: ATORVASTATIN 80 MG TAB PO SCH (21:00)
[2016-12-08 03:45] VITALS: BP 133/59; PULSE 53; RESP 18; TEMP 98.1; O2SAT 96
[2016-12-08 07:41] LABS: AUTOMATED NEUTROPHIL # 2.7 TH/MM3 (1.8-7.7); BASOPHIL % 0.9 % (0.0-2.0); EOSINOPHIL # 0.1 TH/MM3 (0-0.4); HEMATOCRIT 37.5 % (35.0-46.0); HEMO FLAGS DIFF FINAL; LYMPH % 32.7 % (9.0-44.0); LYMPHOCYTE # 1.6 TH/MM3 (1.0-4.8); MEAN CELL VOLUME 91.7 FL (80.0-100.0); MEAN CORPUSCULAR HEMOGLOBIN 31.6 PG (27.0-34.0); MEAN CORPUSCULAR HGB CONC 34.5 % (32.0-36.0); MONO % 10.8 % (0.0-8.0); NEUT % 53.6 % (16.0-70.0); PLATELET COUNT 194 TH/MM3 (150-450); RED BLOOD COUNT 4.09 MIL/MM3 (4.00-5.30); RED CELL DISTRIBUTION WIDTH 14.5 % (11.6-17.2)
[2016-12-08 08:04] LABS: ANION GAP 9 MEQ/L (5-15); AST (GOT) 35 U/L (15-37); BICARBONATE 23.7 MEQ/L (21.0-32.0); BLOOD UREA NITROGEN 14 MG/DL (7-18); CHLORIDE 109 MEQ/L (98-107); GLOMERULAR FILTRATION RATE 105 ML/MIN (>89); SODIUM (NA) 142 MEQ/L (136-145)
[2016-12-08 08:08] LABS: ALKALINE PHOSPHATASE 116 U/L (45-117); ALT (GPT) 77 U/L (10-53); TOTAL BILIRUBIN ADULT 0.2 MG/DL (0.2-1.0)
--- NOTE | 2016-12-08 08:16 | HHI.PR ---
Subjective Remarks Follow up for seizure, dilantin toxicity. The patient reports no acute events overnight. She denies any medical complaints including no headache, lightheadedness, dizziness, chest pain, shortness of breath, or abdominal complaints. Dilantin level still elevated. Objective Vitals Vital Signs Date Time Temp Pulse Resp B/P Pulse Ox O2 Delivery O2 Flow Rate FiO2 12/08/16 03:45 98.1 53 18 133/59 96 12/07/16 23:24 98.0 54 18 136/66 97 12/07/16 21:49 63 12/07/16 19:28 98.3 66 18 131/64 98 12/07/16 15:45 97.8 56 18 120/55 96 12/07/16 13:48 47 12/07/16 11:31 97.8 50 20 108/56 96 12/07/16 08:12 97.8 50 18 133/62 96 I/O 12/07/16 12/07/16 12/07/16 12/08/16 12/08/16 12/08/16 07:00 15:00 23:00 07:00 15:00 23:00 Intake Total 440 ml Balance 440 ml Intake Oral 440 ml # Voids 1 2 Result Diagram: 12/08/16 0658 12/08/16 0658 Imaging Last Impressions Head CT 12/06/16 0000 Signed Impressions: Service Date/Time: Wednesday, December 07, 2016 00:26 - CONCLUSION: No bleed or other acute intracranial abnormality. Ernesto Parham MD Cervical Spine CT 12/06/16 0000 Signed Impressions: Service Date/Time: Wednesday, December 07, 2016 00:26 - CONCLUSION: 1. No fracture or acute appearing malalignment of the cervical spine. Degenerative changes as above. Ernesto Parham MD Objective Remarks GENERAL: Well-nourished, well-developed female patient in NAD. SKIN: Warm and dry. No rash. HEENT: Normocephalic. Atraumatic.Pupils equal and round. Mucous membranes pink and moist. NECK: Supple. Trachea midline. CARDIOVASCULAR: Regular rate and rhythm. No murmur appreciated. RESPIRATORY: No accessory muscle use. Clear to auscultation. Breath sounds equal bilaterally. GASTROINTESTINAL: Abdomen soft, non-tender, nondistended. Normoactive bowel sounds x4. MUSCULOSKELETAL: No obvious deformities. Extremities without clubbing, cyanosis , or edema. NEUROLOGICAL: Awake and alert. No obvious cranial nerve deficits. Motor grossly within normal limits. Normal speech. Medications and IVs Current Medications Medications (Trade) Dose Ordered Sig/Elizabet Route Start Time Stop Time Status Last Admin Lorazepam 1 mg 1 mg Q5M PRN IV PUSH 12/07/16 02:15 (NS 1000 ml Inj) 1,000 ml @ 100 mls/hr Q10H IV 12/07/16 02:05 12/07/16 21:01 (NS Flush) 2 ml UNSCH PRN IV FLUSH 12/07/16 02:15 (NS Flush) 2 ml BID IV FLUSH 12/07/16 09:00 (Zofran Inj) 4 mg Q6H PRN IVP 12/07/16 02:15 (Tylenol) 650 mg Q6H PRN PO 12/07/16 02:15 (Radha-Colace) 1 tab BID PO 12/07/16 09:00 12/07/16 21:00 (Milk Of Magnesia Liq) 30 ml Q12H PRN PO 12/07/16 02:15 (Senokot) 17.2 mg Q12H PRN PO 12/07/16 02:15 (Dulcolax Supp) 10 mg DAILY PRN RECTAL 12/07/16 02:15 (Lactulose Liq) 30 ml DAILY PRN PO 12/07/16 02:15 (Pneumovax-23 Inj) 25 mcg ONCE ONCE IM 12/08/16 10:00 12/08/16 10:01 (Proair Hfa Inh) 2 puff QID INH 12/07/16 09:00 12/07/16 21:00 (Ecotrin Ec) 81 mg DAILY PO 12/07/16 09:00 12/07/16 08:52 (Lipitor) 80 mg HS PO 12/07/16 21:00 12/07/16 21:00 (Symbicort 160-4.5 Inh) 2 puff BID INH 12/07/16 09:00 12/07/16 21:00 (Folate) 1 mg DAILY PO 12/07/16 09:00 12/07/16 08:52 (Vimpat) 100 mg TID PO 12/07/16 09:00 12/07/16 17:38 (Keppra) 1,000 mg TID PO 12/07/16 09:00 12/07/16 17:38 (Lopressor) 50 mg BID PO 12/07/16 09:00 12/07/16 21:00 (Spiriva Inh) 18 mcg DAILY INH 12/07/16 09:00 12/07/16 08:52 Topiramate 100 mg 100 mg BID PO 12/07/16 09:00 12/07/16 21:00 (Rocephin Inj/NS Inj) 100 ml @ 200 mls/hr Q24H IV 12/07/16 13:00 12/07/16 13:44 (Ativan Inj) 1 mg Q4H PRN IV PUSH 12/07/16 17:30 A/P Problem List: (1) Seizure disorder ICD Code: G40.909 Status: Chronic (2) Dilantin toxicity ICD Code: T42.0X1A Status: Acute (3) Schizophrenia ICD Code: F20.9 Status: Acute (4) HTN (hypertension) ICD Code: I10 Status: Chronic (5) COPD (chronic obstructive pulmonary disease) ICD Code: J44.9 Status: Chronic (6) Tobacco abuse ICD Code: Z72.0 Status: Acute Assessment and Plan 61-year-old female with a PMH of HTN, Schizophrenia, Seizure Disorder, Alcohol Abuse, Tobacco Abuse and h/o Cocaine Abuse who was brought to the ER by EMS from SNF secondary to fall and seizure activity. Seizure Disorder: on multiple antiepileptic medications, previous admit for Status Epilepticus, pt reports seizure x2 hours at Rehab, however unwitnessed. Currently at baseline. CT Head/C-Spine w/ no acute findings, images reviewed by me. Resume home antiepileptics except hold Dilantin in light of elevated levels. Consult Neurology, appreciate recommendations. Seizure Precautions, Ativan prn. H/o Cocaine Abuse, UDS negative. UA with suspect UTI, on abx. No further seizure activity since admission. Dilantin Toxicity: Dilantin level 36.2 -->40.2, continue to hold Dilantin. Episode of bradycardia upon arrival w/ HR 40's, now resolved, HR 80's. Monitor on telemetry. Neuro consulted as above, recommends holding dilantin until level less than 20, then restart dilantin 100mg tid. UTI: UA with occ bacteria and +leuks. Started on IV Rocephin. Follow urine culture. Schizophrenia: At baseline, resume home medications. HTN: BP 120-130's, will monitor, resume home meds. Fairly well controlled. COPD: Chronic Respiratory Failure, stable. Resume home MDI/Nebs. Tobacco Abuse: Pt counselled. NicoDerm/Ativan prn if needed. DVT Prophylaxis: SCD/teds. Discharge Planning Not yet ready for discharge. Plan to discharge when dilantin level < 20. Problem Qualifiers (1) Dilantin toxicity: Qualified Code: T42.0X1A - Dilantin toxicity, accidental or unintentional, initial encounter Stacia Dominguez PA-C Dec 08, 2016 8:16 am
[2016-12-08 08:18] VITALS: BP 153/73; PULSE 58; RESP 18; TEMP 98.4; O2SAT 97
[2016-12-08] MEDS: ASPIRIN EC 81 MG TABEC PO SCH (08:42)
[2016-12-08] MEDS: DOCUSATE SODIUM 50 MG/SENNA 8.6 MG TAB PO SCH ×2 (08:42→20:37)
[2016-12-08] MEDS: levETIRAcetam 500 MG TAB PO SCH ×3 (08:42→18:22)
[2016-12-08] MEDS: LACOSAMIDE 100 MG TAB PO SCH ×3 (08:42→18:22)
[2016-12-08] MEDS: TOPIRAMATE 100 MG TAB PO SCH ×2 (08:43→20:37)
[2016-12-08] MEDS: FOLIC ACID 1 MG TAB PO SCH (08:43)
[2016-12-08] MEDS: SODIUM CHLORIDE 0.9% FLUSH 10 ML FLUSH IV FLUSH SCH ×2 (08:43→20:31)
[2016-12-08] MEDS: METOPROLOL TARTRATE 50 MG TAB PO SCH ×2 (08:43→20:37)
[2016-12-08] MEDS: BUDESONIDE-FORMOTEROL 160/4.5 MCG INHALER INH SCH ×2 (08:45→20:37)
[2016-12-08] MEDS: ALBUTEROL SULFATE 90 MCG/ACT HFA 8 GM INHALER INH SCH ×4 (08:45→20:37)
[2016-12-08] MEDS: TIOTROPIUM BROMIDE 18 MCG INH INH SCH (08:45)
[2016-12-08] MEDS: SODIUM CHLOR 0.9% 1000 ML INJ 1,000 ML IV SCH ×2 (08:46→18:05)
[2016-12-08 10:00] VITALS: PULSE 55
[2016-12-08] MEDS ORDERED: PNEUMOCOCCAL POLYVALENT INJ 25 MCG/0.5 ML SYR IM ONE (10:00)
[2016-12-08 12:00] VITALS: BP 131/71; PULSE 64; RESP 16; TEMP 98.4; O2SAT 96
[2016-12-08] MEDS: cefTRIAXone INJ 1,000 MG in SODIUM CHLORIDE 0.9% INJ 100 ML IV SCH (12:55)
--- NOTE | 2016-12-08 17:05 | HHI.PR ---
Review/Management Diagnosis dilantin toxicity--level still high SZ--stable on dilantin and keppra Plan continue to hold dilantin until level is <20 Diagnosis/Plan: Subjective Subjective Comments No acute events reported No headache No sz Active Medications Current Medications Medications (Trade) Dose Ordered Sig/Elizabet Route Start Time Stop Time Status Last Admin Lorazepam 1 mg 1 mg Q5M PRN IV PUSH 12/07/16 02:15 (NS 1000 ml Inj) 1,000 ml @ 100 mls/hr Q10H IV 12/07/16 02:05 12/08/16 08:46 (NS Flush) 2 ml UNSCH PRN IV FLUSH 12/07/16 02:15 (NS Flush) 2 ml BID IV FLUSH 12/07/16 09:00 (Zofran Inj) 4 mg Q6H PRN IVP 12/07/16 02:15 (Tylenol) 650 mg Q6H PRN PO 12/07/16 02:15 (Radha-Colace) 1 tab BID PO 12/07/16 09:00 12/08/16 08:42 (Milk Of Magnesia Liq) 30 ml Q12H PRN PO 12/07/16 02:15 (Senokot) 17.2 mg Q12H PRN PO 12/07/16 02:15 (Dulcolax Supp) 10 mg DAILY PRN RECTAL 12/07/16 02:15 (Lactulose Liq) 30 ml DAILY PRN PO 12/07/16 02:15 (Proair Hfa Inh) 2 puff QID INH 12/07/16 09:00 12/08/16 12:54 (Ecotrin Ec) 81 mg DAILY PO 12/07/16 09:00 12/08/16 08:42 (Lipitor) 80 mg HS PO 12/07/16 21:00 12/07/16 21:00 (Symbicort 160-4.5 Inh) 2 puff BID INH 12/07/16 09:00 12/08/16 08:45 (Folate) 1 mg DAILY PO 12/07/16 09:00 12/08/16 08:43 (Vimpat) 100 mg TID PO 12/07/16 09:00 12/08/16 12:54 (Keppra) 1,000 mg TID PO 12/07/16 09:00 12/08/16 12:54 (Lopressor) 50 mg BID PO 12/07/16 09:00 12/08/16 08:43 (Spiriva Inh) 18 mcg DAILY INH 12/07/16 09:00 12/08/16 08:45 Topiramate 100 mg 100 mg BID PO 12/07/16 09:00 12/08/16 08:43 (Rocephin Inj/NS Inj) 100 ml @ 200 mls/hr Q24H IV 12/07/16 13:00 12/08/16 12:55 (Ativan Inj) 1 mg Q4H PRN IV PUSH 12/07/16 17:30 Allergies Allergies Coded Allergies Aripiprazole (Verified Allergy, Unknown, 12/07/16) Review of Systems Eye: Negative Respiratory: Negative Cardiovascular: Negative Gastrointestinal: Negative Musculoskeletal: Negative All other ROS: ROS reviewed as documented in chart Exam I&O / VS Vital Signs Date Time Temp Pulse Resp B/P Pulse Ox O2 Delivery O2 Flow Rate FiO2 12/08/16 12:00 98.4 64 16 131/71 96 12/08/16 10:00 55 12/08/16 08:18 98.4 58 18 153/73 97 12/08/16 03:45 98.1 53 18 133/59 96 12/07/16 23:24 98.0 54 18 136/66 97 12/07/16 21:49 63 12/07/16 19:28 98.3 66 18 131/64 98 General: No acute distress Eye: EOMI Respiratory: Non-labored respirations Neurologic: Alert, Normal motor, No focal defects, CN II-XII intact Psychiatric: Cooperative Objective Micro and Labs Laboratory Tests Test 12/08/16 06:58 White Blood Count 5.0 Red Blood Count 4.09 Hemoglobin 12.9 Hematocrit 37.5 Mean Corpuscular Volume 91.7 Mean Corpuscular Hemoglobin 31.6 Mean Corpuscular Hemoglobin 34.5 Concent Red Cell Distribution Width 14.5 Platelet Count 194 Mean Platelet Volume 8.2 Neutrophils (%) (Auto) 53.6 Lymphocytes (%) (Auto) 32.7 Monocytes (%) (Auto) 10.8 Eosinophils (%) (Auto) 2.0 Basophils (%) (Auto) 0.9 Neutrophils # (Auto) 2.7 Lymphocytes # (Auto) 1.6 Monocytes # (Auto) 0.5 Eosinophils # (Auto) 0.1 Basophils # (Auto) 0.0 CBC Comment DIFF FINAL Differential Comment Sodium Level 142 Potassium Level 4.0 Chloride Level 109 Carbon Dioxide Level 23.7 Anion Gap 9 Blood Urea Nitrogen 14 Creatinine 0.58 Estimat Glomerular Filtration 105 Rate Random Glucose 80 Calcium Level 8.5 Total Bilirubin 0.2 Aspartate Amino Transf 35 (AST/SGOT) Alanine Aminotransferase 77 (ALT/SGPT) Alkaline Phosphatase 116 Total Protein 5.9 Albumin 2.8 Phenytoin (Dilantin) Level 33.3 Date/Time Procedure Status Source Growth 12/07/16 06:30 Urine Culture - Preliminary Resulted Urine Clean Catch Ankit Ferguson PhD Dec 08, 2016 17:05
[2016-12-08 20:22] VITALS: BP 135/65; PULSE 63; RESP 18; TEMP 98.2; O2SAT 99
[2016-12-08] MEDS: ATORVASTATIN 80 MG TAB PO SCH (20:37)
[2016-12-08 23:47] VITALS: BP 137/65; PULSE 55; RESP 18; TEMP 98.1; O2SAT 96
[2016-12-09] VITALS (8 sets, daily range): BP systolic 126–138; BP diastolic 57–62; PULSE 51–77; RESP 18–20; TEMP 97.6–98.4; O2SAT 52–97
[2016-12-09] MEDS: SODIUM CHLOR 0.9% 1000 ML INJ 1,000 ML IV SCH ×2 (04:20→14:10)
[2016-12-09] MEDS: TIOTROPIUM BROMIDE 18 MCG INH INH SCH (08:58)
[2016-12-09] MEDS: BUDESONIDE-FORMOTEROL 160/4.5 MCG INHALER INH SCH ×2 (08:58→21:08)
[2016-12-09] MEDS: ALBUTEROL SULFATE 90 MCG/ACT HFA 8 GM INHALER INH SCH ×4 (08:58→21:08)
[2016-12-09] MEDS: FOLIC ACID 1 MG TAB PO SCH (08:59)
[2016-12-09] MEDS: ASPIRIN EC 81 MG TABEC PO SCH (08:59)
[2016-12-09] MEDS: DOCUSATE SODIUM 50 MG/SENNA 8.6 MG TAB PO SCH ×2 (08:59→21:09)
[2016-12-09] MEDS: levETIRAcetam 500 MG TAB PO SCH ×3 (08:59→18:23)
[2016-12-09] MEDS: TOPIRAMATE 100 MG TAB PO SCH ×2 (08:59→21:00)
[2016-12-09] MEDS: SODIUM CHLORIDE 0.9% FLUSH 10 ML FLUSH IV FLUSH SCH ×2 (08:59→21:00)
[2016-12-09] MEDS: LACOSAMIDE 100 MG TAB PO SCH ×3 (08:59→18:23)
[2016-12-09] MEDS: METOPROLOL TARTRATE 50 MG TAB PO SCH ×2 (08:59→21:08)
--- NOTE | 2016-12-09 09:23 | HHI.PR ---
Subjective Remarks Follow up for dilantin toxicity, seizure. The patient has no acute complaints. No seizure activity overnight. Dilantin level improving. Patient tolerating oral intake. Vital signs stable. Objective Vitals Vital Signs Date Time Temp Pulse Resp B/P Pulse Ox O2 Delivery O2 Flow Rate FiO2 12/09/16 08:02 97.6 68 20 138/60 95 12/09/16 03:40 98.1 55 18 132/62 95 12/09/16 02:03 56 12/08/16 23:47 98.1 55 18 137/65 96 12/08/16 20:22 98.2 63 18 135/65 99 12/08/16 12:00 98.4 64 16 131/71 96 12/08/16 10:00 55 I/O 12/08/16 12/08/16 12/08/16 12/09/16 12/09/16 12/09/16 07:00 15:00 23:00 07:00 15:00 23:00 Intake Total 1775 ml Balance 1775 ml Intake Oral 775 ml IV Total 1000 ml # Voids 2 5 3 Result Diagram: 12/08/16 0658 12/08/16 0658 Imaging Last Impressions Head CT 12/06/16 0000 Signed Impressions: Service Date/Time: Wednesday, December 07, 2016 00:26 - CONCLUSION: No bleed or other acute intracranial abnormality. Ernesto Parham MD Cervical Spine CT 12/06/16 0000 Signed Impressions: Service Date/Time: Wednesday, December 07, 2016 00:26 - CONCLUSION: 1. No fracture or acute appearing malalignment of the cervical spine. Degenerative changes as above. Ernesto Parham MD Objective Remarks GENERAL: Well-nourished, well-developed female patient in [facility]. SKIN: Warm and dry. No rash. HEENT: Normocephalic. Atraumatic.Pupils equal and round. Mucous membranes pink and moist. NECK: Supple. Trachea midline. CARDIOVASCULAR: Regular rate and rhythm. No murmur appreciated. RESPIRATORY: No accessory muscle use. Clear to auscultation. Breath sounds equal bilaterally. GASTROINTESTINAL: Abdomen soft, non-tender, nondistended. Normoactive bowel sounds x4. MUSCULOSKELETAL: No obvious deformities. Extremities without clubbing, cyanosis , or edema. NEUROLOGICAL: Awake and alert. No obvious cranial nerve deficits. Motor grossly within normal limits. Normal speech. Medications and IVs Current Medications Medications (Trade) Dose Ordered Sig/Elizabet Route Start Time Stop Time Status Last Admin Lorazepam 1 mg 1 mg Q5M PRN IV PUSH 12/07/16 02:15 (NS 1000 ml Inj) 1,000 ml @ 100 mls/hr Q10H IV 12/07/16 02:05 12/09/16 04:20 (NS Flush) 2 ml UNSCH PRN IV FLUSH 12/07/16 02:15 (NS Flush) 2 ml BID IV FLUSH 12/07/16 09:00 (Zofran Inj) 4 mg Q6H PRN IVP 12/07/16 02:15 (Tylenol) 650 mg Q6H PRN PO 12/07/16 02:15 (Radha-Colace) 1 tab BID PO 12/07/16 09:00 12/09/16 08:59 (Milk Of Magnesia Liq) 30 ml Q12H PRN PO 12/07/16 02:15 (Senokot) 17.2 mg Q12H PRN PO 12/07/16 02:15 (Dulcolax Supp) 10 mg DAILY PRN RECTAL 12/07/16 02:15 (Lactulose Liq) 30 ml DAILY PRN PO 12/07/16 02:15 (Proair Hfa Inh) 2 puff QID INH 12/07/16 09:00 12/09/16 08:58 (Ecotrin Ec) 81 mg DAILY PO 12/07/16 09:00 12/09/16 08:59 (Lipitor) 80 mg HS PO 12/07/16 21:00 12/08/16 20:37 (Symbicort 160-4.5 Inh) 2 puff BID INH 12/07/16 09:00 12/09/16 08:58 (Folate) 1 mg DAILY PO 12/07/16 09:00 12/09/16 08:59 (Vimpat) 100 mg TID PO 12/07/16 09:00 12/09/16 08:59 (Keppra) 1,000 mg TID PO 12/07/16 09:00 12/09/16 08:59 (Lopressor) 50 mg BID PO 12/07/16 09:00 12/09/16 08:59 (Spiriva Inh) 18 mcg DAILY INH 12/07/16 09:00 12/09/16 08:58 Topiramate 100 mg 100 mg BID PO 12/07/16 09:00 12/09/16 08:59 (Rocephin Inj/NS Inj) 100 ml @ 200 mls/hr Q24H IV 12/07/16 13:00 12/08/16 12:55 (Ativan Inj) 1 mg Q4H PRN IV PUSH 12/07/16 17:30 A/P Problem List: (1) Seizure disorder ICD Code: G40.909 Status: Chronic (2) Dilantin toxicity ICD Code: T42.0X1A Status: Acute (3) Schizophrenia ICD Code: F20.9 Status: Acute (4) HTN (hypertension) ICD Code: I10 Status: Chronic (5) COPD (chronic obstructive pulmonary disease) ICD Code: J44.9 Status: Chronic (6) Tobacco abuse ICD Code: Z72.0 Status: Acute Assessment and Plan 61-year-old female with a PMH of HTN, Schizophrenia, Seizure Disorder, Alcohol Abuse, Tobacco Abuse and h/o Cocaine Abuse who was brought to the ER by EMS from SNF secondary to fall and seizure activity. Seizure Disorder: on multiple antiepileptic medications, previous admit for Status Epilepticus, pt reports seizure x2 hours at Rehab, however unwitnessed. Currently at baseline. CT Head/C-Spine w/ no acute findings, images reviewed by me. Resume home antiepileptics except hold Dilantin in light of elevated levels. Consult Neurology, appreciate recommendations. Seizure Precautions, Ativan prn. H/o Cocaine Abuse, UDS negative. UA with suspect UTI, on abx. No further seizure activity since admission. Dilantin Toxicity: Dilantin level 40.2, continue to hold Dilantin. Episode of bradycardia upon arrival w/ HR 40's, now resolved, HR 80's. Monitor on telemetry. Neuro consulted as above, recommends holding dilantin until level less than 20, then restart dilantin 100mg tid. Dilantin level 36.2 -->40.2 --> 27.4 today. Repeat at 3pm today. UTI: UA with occ bacteria and +leuks. Started on IV Rocephin. Urine culture with Enterococcus Faecalis, will change IV Rocephin to po Macrobid 100mg bid x7days,(avoid Cipro with seizure medications). Schizophrenia: At baseline, resume home medications. HTN: BP 120-130's, will monitor, resume home meds. Fairly well controlled. COPD: Chronic Respiratory Failure, stable. Resume home MDI/Nebs. Tobacco Abuse: Pt counselled. NicoDerm/Ativan prn if needed. DVT Prophylaxis: SCD/teds. Discharge Planning Plan to discharge when dilantin level < 20. Hopefully today. Attending Statement Seen in her bedroom and examined, discussed with LUCRETIA Staciaalfredo Dominguez still following Dilantin level expected discharge in am tomorrow Problem Qualifiers (1) Dilantin toxicity: Qualified Code: T42.0X1A - Dilantin toxicity, accidental or unintentional, initial encounter Stacia Dominguez PA-C Dec 09, 2016 09:23 August Mcdermott MD Dec 09, 2016 17:58
[2016-12-09] MEDS ORDERED: NITR100C4 PO (12:44)
[2016-12-09] MEDS ORDERED: DILA100C PO (12:44)
--- NOTE | 2016-12-09 12:45 | HHI.DCPOC ---
Discharge Care Plan Diagnosis: (1) Dilantin toxicity (2) UTI (lower urinary tract infection) (3) Seizure disorder (4) HTN (hypertension) Goals to Promote Your Health * To prevent worsening of your condition and complications * To maintain your health at the optimal level Directions to Meet Your Goals Take your medications as prescribed Follow your dietary instruction Follow activity as directed Keep your appointments as scheduled Take your immunizations and boosters as scheduled If your symptoms worsen call your PCP, if no PCP go to Urgent Care Center or Emergency Room Smoking is Dangerous to Your Health. Avoid second hand smoke Call the 24-hour hour crisis hotline for domestic abuse at Stacia Dominguez PA-C Dec 09, 2016 12:45
[2016-12-09] MEDS: NITROFURANTOIN MONOHYD MACROCR 100 MG CAP PO SCH (18:23)
[2016-12-09] MEDS: ATORVASTATIN 80 MG TAB PO SCH (21:08)
[2016-12-10] MEDS: SODIUM CHLOR 0.9% 1000 ML INJ 1,000 ML IV SCH ×2 (00:05→13:33)
[2016-12-10 00:06] VITALS: BP 124/57; PULSE 67; RESP 16; TEMP 98; O2SAT 94
[2016-12-10 08:00] VITALS: BP 162/78; PULSE 75; RESP 18; TEMP 98; O2SAT 100
--- NOTE | 2016-12-10 09:16 | HHI.PR ---
Subjective Remarks Follow-up for Dilantin toxicity. The patient has no acute complaints today. She reports tolerating oral intake. She reports normal bowel movements. She is getting out of bed with [facility] at this time. She denies any chest pain. Objective Vitals Vital Signs Date Time Temp Pulse Resp B/P Pulse Ox O2 Delivery O2 Flow Rate FiO2 12/10/16 08:00 98.0 75 18 162/78 100 12/10/16 00:06 98.0 67 16 124/57 94 12/09/16 21:48 74 12/09/16 20:04 98.4 77 18 126/57 97 12/09/16 16:09 97.9 52 18 130/60 96 12/09/16 12:01 51 12/09/16 11:57 98.2 52 18 138/62 52 Result Diagram: 12/08/16 0658 12/08/16 0658 Imaging Last Impressions Head CT 12/06/16 0000 Signed Impressions: Service Date/Time: Wednesday, December 07, 2016 00:26 - CONCLUSION: No bleed or other acute intracranial abnormality. Ernesto Parham MD Cervical Spine CT 12/06/16 0000 Signed Impressions: Service Date/Time: Wednesday, December 07, 2016 00:26 - CONCLUSION: 1. No fracture or acute appearing malalignment of the cervical spine. Degenerative changes as above. Ernesto Parham MD Objective Remarks GENERAL: Well-developed well-nourished. In no acute distress. SKIN: Warm and dry. No lesions noted. HEENT: Normocephalic. Pupils equal and round. Mucous membranes pink and moist. CARDIOVASCULAR: Regular rate and rhythm. No murmur appreciated. RESPIRATORY: No accessory muscle use. Clear to auscultation. Breath sounds equal bilaterally. GASTROINTESTINAL: Abdomen soft, non-tender, nondistended. Bowel sounds x4. MUSCULOSKELETAL: No obvious deformities. No clubbing or cyanosis. No edema. NEUROLOGICAL: Awake and alert. No focal neurological deficits. Moves upper and lower extremities spontaneously. Normal speech. PSYCHIATRIC: Appropriate mood and flat affect; insight and judgment fair to normal. A/P Problem List: (1) Seizure disorder ICD Code: G40.909 Status: Chronic (2) Dilantin toxicity ICD Code: T42.0X1A Status: Acute (3) Schizophrenia ICD Code: F20.9 Status: Acute (4) HTN (hypertension) ICD Code: I10 Status: Chronic (5) COPD (chronic obstructive pulmonary disease) ICD Code: J44.9 Status: Chronic (6) Tobacco abuse ICD Code: Z72.0 Status: Acute Assessment and Plan 61-year-old female with a PMH of HTN, Schizophrenia, Seizure Disorder, Alcohol Abuse, Tobacco Abuse and h/o Cocaine Abuse who was brought to the ER by EMS from SNF secondary to fall and seizure activity. Seizure Disorder: on multiple antiepileptic medications, previous admit for Status Epilepticus, pt reports seizure x2 hours at Rehab, however unwitnessed. Currently at baseline. CT Head/C-Spine w/ no acute findings. Continue home antiepileptics except hold Dilantin in light of elevated levels. Consulted Neurology, seen by Dr. Ferguson, appreciate recommendations. Seizure Precautions, Ativan prn. H/o Cocaine Abuse, UDS negative. No further seizure activity during admission. Dilantin Toxicity: Dilantin level 40.2, continue to hold Dilantin. Episode of bradycardia upon arrival w/ HR 40's, now resolved, HR 80's. Monitor on telemetry. Neuro consulted as above, recommends holding dilantin until level less than 20, then restart dilantin 100mg tid. Dilantin level 36.2 -->40.2 --> 20.5 today. Repeat Dilantin level this afternoon. Abnormal UA: UA with numerous squamous epithelial cells and few yeast, however urine culture with Enterococcus Faecalis. Continue Macrobid 100mg bid x7days,( avoid Cipro with seizure medications). Give miconazole vaginal. Schizophrenia: At baseline, continue home medications. HTN: BP 120-130's, will monitor, resume home meds. Fairly well controlled. COPD: Chronic, stable. Continue home MDI/Nebs. Tobacco Abuse: Pt counselled. NicoDerm/Ativan prn if needed. DVT Prophylaxis: SCD/teds. Discharge Planning Discussed with case management, hopefully discharge back to SNF today. Problem Qualifiers (1) Dilantin toxicity: Qualified Code: T42.0X1A - Dilantin toxicity, accidental or unintentional, initial encounter Saleem Horowitz Dec 10, 2016 09:16
[2016-12-10] MEDS: ALBUTEROL SULFATE 90 MCG/ACT HFA 8 GM INHALER INH SCH ×2 (09:20→13:34)
[2016-12-10] MEDS: TIOTROPIUM BROMIDE 18 MCG INH INH SCH (09:20)
[2016-12-10] MEDS: BUDESONIDE-FORMOTEROL 160/4.5 MCG INHALER INH SCH (09:20)
[2016-12-10] MEDS: DOCUSATE SODIUM 50 MG/SENNA 8.6 MG TAB PO SCH (09:21)
[2016-12-10] MEDS: TOPIRAMATE 100 MG TAB PO SCH (09:21)
[2016-12-10] MEDS: levETIRAcetam 500 MG TAB PO SCH ×2 (09:21→13:33)
[2016-12-10] MEDS: NITROFURANTOIN MONOHYD MACROCR 100 MG CAP PO SCH (09:21)
[2016-12-10] MEDS: ASPIRIN EC 81 MG TABEC PO SCH (09:21)
[2016-12-10] MEDS: FOLIC ACID 1 MG TAB PO SCH (09:21)
[2016-12-10] MEDS: SODIUM CHLORIDE 0.9% FLUSH 10 ML FLUSH IV FLUSH SCH (09:21)
[2016-12-10] MEDS: METOPROLOL TARTRATE 50 MG TAB PO SCH (09:21)
[2016-12-10] MEDS: LACOSAMIDE 100 MG TAB PO SCH ×2 (09:22→13:33)
[2016-12-10 11:49] VITALS: PULSE 62
[2016-12-10 12:12] VITALS: BP 121/63; PULSE 58; RESP 18; TEMP 98; O2SAT 99
[2016-12-10] MEDS ORDERED: MICO2CRE43 VAGINAL (15:26)
--- NOTE | 2016-12-10 16:01 | HHI.DS ---
Discharge Summary Admission Date Dec 07, 2016 at 01:51 Discharge Date: Dec 10, 2016 Admitting Diagnosis Dilantin toxicity (1) Seizure disorder ICD Code: G40.909 Diagnosis: Secondary (2) Dilantin toxicity ICD Code: T42.0X1A Diagnosis: Principal (3) Schizophrenia ICD Code: F20.9 Diagnosis: Secondary (4) HTN (hypertension) ICD Code: I10 Diagnosis: Secondary (5) COPD (chronic obstructive pulmonary disease) ICD Code: J44.9 Diagnosis: Secondary (6) Tobacco abuse ICD Code: Z72.0 Diagnosis: Secondary Procedures None Brief History - From Admission This is a 61-year-old female with a PMH of HTN, Schizophrenia, Seizure Disorder , Alcohol Abuse, Tobacco Abuse and h/o Cocaine Abuse who was brought to the ER by EMS from SNF secondary to fall. Per report, fall was unwitnessed, however pt reported episode of seizure activity for approx 2 hours, . Noted by staff to have mild post-ictal state. Awake, alert and at baseline while in ER. On arrival, BP 136/72, HR 47, O2 sat 97% on RA, Afebrile. HR currently 80. CBC unremarkable. Chemistry essentially unremarkable except for BUN 20. Phenytoin level XXXVI.2. Vomax level pending. CT Head with no acute findings. CT C- spine negative for fracture or malalignment. CBC/BMP: 12/08/16 0658 12/08/16 0658 Significant Findings Laboratory Tests Test 12/07/16 12/08/16 12/08/16 12/09/16 16:46 06:58 19:43 07:05 Phenytoin (Dilantin) Level 40.2 MCG/ML 33.3 MCG/ML 31.8 MCG/ML 27.4 MCG/ML (10.0-20.0) (10.0-20.0) (10.0-20.0) (10.0-20.0) Monocytes (%) (Auto) 10.8 % (0.0-8.0) Chloride Level 109 MEQ/L (98-107) Alanine Aminotransferase 77 U/L (10-53) (ALT/SGPT) Total Protein 5.9 GM/DL (6.4-8.2) Albumin 2.8 GM/DL (3.4-5.0) Test 12/09/16 12/09/16 12/10/16 15:10 18:10 03:59 Phenytoin (Dilantin) Level 23.9 MCG/ML 24.2 MCG/ML 20.5 MCG/ML (10.0-20.0) (10.0-20.0) (10.0-20.0) Imaging Last Impressions Head CT 12/06/16 0000 Signed Impressions: Service Date/Time: Wednesday, December 07, 2016 00:26 - CONCLUSION: No bleed or other acute intracranial abnormality. Ernesto Parham MD Cervical Spine CT 12/06/16 0000 Signed Impressions: Service Date/Time: Wednesday, December 07, 2016 00:26 - CONCLUSION: 1. No fracture or acute appearing malalignment of the cervical spine. Degenerative changes as above. Ernesto Parham MD PE at Discharge GENERAL: Well-developed well-nourished. In no acute distress. SKIN: Warm and dry. No lesions noted. HEENT: Normocephalic. Pupils equal and round. Mucous membranes pink and moist. CARDIOVASCULAR: Regular rate and rhythm. No murmur appreciated. RESPIRATORY: No accessory muscle use. Clear to auscultation. Breath sounds equal bilaterally. GASTROINTESTINAL: Abdomen soft, non-tender, nondistended. Bowel sounds x4. MUSCULOSKELETAL: No obvious deformities. No clubbing or cyanosis. No edema. NEUROLOGICAL: Awake and alert. No focal neurological deficits. Moves upper and lower extremities spontaneously. Normal speech. PSYCHIATRIC: Appropriate mood and flat affect; insight and judgment fair to normal. Pt update on day of discharge Dilantin level decreased to 18.4. Discussed with Dr. Hurst, recommended restarting Dilantin on Tuesday 12/12. Discussed with case management, back to SNF today. Hospital Course 61-year-old female with a PMH of HTN, Schizophrenia, Seizure Disorder, Alcohol Abuse, Tobacco Abuse and h/o Cocaine Abuse who was brought to the ER by EMS from SNF secondary to fall and seizure activity. Seizure Disorder: on multiple antiepileptic medications, previous admit for Status Epilepticus, pt reports seizure x2 hours at Rehab, however unwitnessed. Currently at baseline. CT Head/C-Spine w/ no acute findings. Continue home antiepileptics except held Dilantin in light of elevated levels. Consulted Neurology, seen by Dr. Ferguson, appreciate recommendations. No further seizure activity during admission. Dilantin Toxicity: Dilantin level 40.2, continue to hold Dilantin. Episode of bradycardia upon arrival w/ HR 40's, now resolved, HR 80's. Monitor on telemetry. Neuro consulted as above, recommends holding dilantin until level less than 20, then restart dilantin 100mg tid. Dilantin level 36.2 -->40.2 --> 18.4. Abnormal UA: UA with numerous squamous epithelial cells and few yeast, however urine culture with Enterococcus Faecalis. Continue Macrobid 100mg bid x7days,( avoid Cipro with seizure medications). Give miconazole vaginal. Pt Condition on Discharge: Stable Discharge Disposition: Discharge to SNF Discharge Time: > 30 minutes Discharge Instructions DIET: Follow Instructions for: Heart Healthy Diet Activities you can perform: Regular-No Restrictions Follow up Referrals: Neurology - 1 Week with Ankit Ferguson PhD MD PCP Follow-up - 1 Week New Orders: PHENYTOIN (DILANTIN) - 2-3 Days New Medications: Phenytoin Extended (Dilantin) 100 Mg Cap 100 MG PO TID Control Seizures #90 Ref 0 CAP Miconazole Nitrate Vaginal (Eq Miconazole 7 Day Treat) 2 % Cre 1 APPL VAGINAL HS Infection Days 7 TUBE Nitrofurantoin Monohydrate Macrocrystals (Nitrofurantoin Monohydrate Macrocrystals) 100 Mg Cap 100 MG PO BIDPC UTI Days 7 CAP Continued Medications: Albuterol 18 GM Inh (Ventolin Hfa 18 GM Inh) 90 Mcg/Act Aer 2 PUFF INH QID SHORTNESS OF BREATH #1 Ref [address] (Aspirin EC) 81 Mg Tabdr 81 MG PO DAILY Ref 0 TAB Atorvastatin (Atorvastatin) 80 Mg Tab 80 MG PO HS Cholesterol Management #30 Ref 0 TAB Budesonide-Formoterol Inh (Symbicort Inh) 160-4.5 Mcg/Act Aero 2 PUFF INH BID #1 Ref 0 INHALER Citalopram (Citalopram) 40 Mg Tab 40 MG PO DAILY Control Depression #30 Ref 0 TAB Docusate Sodium (Colace) 100 Mg Capsule 100 MG PO DAILY Folic Acid (Folic Acid) 1 Mg Tablet 1 MG PO DAILY Lacosamide (Vimpat) 100 Mg Tab 100 MG PO TID Control Seizures #60 Ref 0 TAB Levetiracetam (Levetiracetam) 1,000 Mg Tab 1000 MG PO TID Control Seizures #90 Ref 0 TAB Metoprolol Tartrate (Metoprolol Tartrate) 50 Mg Tab 50 MG PO BID #60 Ref 0 TAB Tiotropium Inh (Spiriva Handihaler) 18 Mcg Cap 1 CAP INH DAILY DO NOT SWALLOW CAPS COPD #30 Ref 0 CAP Topiramate (Topamax) 100 Mg Tab 100 MG PO BID Seizure Control #60 TAB Discontinued Medications: Phenytoin Extended (Dilantin) 100 Mg Cap 200 MG PO BID Seizure Control #60 CAP Phenytoin Extended (Dilantin) 30 Mg Cap 30 MG PO BID Seizure Control #60 CAP Saleem Horowitz Dec 10, 2016 16:01 August Mcdermott MD Dec 10, 2016 16:42
[2016-12-10] MEDS ORDERED: MICONAZOLE NITRATE 2% VAG CREAM 45 GM VAGINAL SCH (21:00)
== END 2016-12-10 20:02 ==
LOC: NEPE 23:38 → NEDA 12-07 01:51 → NEPGCP 12-07 02:55
PROVIDERS: ADMIT Internal Medicine; ATTEND Internal Medicine
DX: G40.909 Epilepsy, unspecified, not intractable, without status epilepticus (principal); T42.0X5A Adverse effect of hydantoin derivatives, initial encounter; Y92.129 Unspecified place in nursing home as the place of occurrence of the external cause; F20.9 Schizophrenia, unspecified; F31.9 Bipolar disorder, unspecified; M19.90 Unspecified osteoarthritis, unspecified site; I10 Essential (primary) hypertension; J44.9 Chronic obstructive pulmonary disease, unspecified; E78.00 Pure hypercholesterolemia, unspecified; R00.1 Bradycardia, unspecified; F17.200 Nicotine dependence, unspecified, uncomplicated; Z86.73 Personal history of transient ischemic attack (TIA), and cerebral infarction without residual deficits; F14.21 Cocaine dependence, in remission; F10.21 Alcohol dependence, in remission; Z79.899 Other long term (current) drug therapy; Z79.01 Long term (current) use of anticoagulants; Z79.82 Long term (current) use of aspirin; Z23 Encounter for immunization
CPT/HCPCS: 70450; 72125; 80048; 80053; 80185; 80201; 80307; 81001; 83735; 85025; 87077; 87086; 87186; 90732; 93005; 96361; 96365; 99285; G0378; J0696; J7030; 90471; G0009

== ENCOUNTER 2017-01-11 16:24 | Inpatient (IN) | payer MEDICARE, OTHER ==
[~2017-01-11] VITALS: Ht 167.6 cm; Wt 98.0 kg
[2017-01-11] VITALS (8 sets, daily range): BP systolic 96–135; BP diastolic 58–74; PULSE 82–104; RESP 18–20; TEMP 102.4; O2SAT 96–100
[~2017-01-11 16:24] MED LIST changes: +COLA100C PO; -COLA100C3 PO; -DILA30CA PO; -FOLI1TAB4 PO; +FOLI1TAB6 PO; +MICO2CRE43 VAGINAL; +NITR100C4 PO
[2017-01-11] MEDS ORDERED: SODIUM CHLOR 0.9% 1000 ML INJ 100 ML IV ONE (16:57)
[2017-01-11] MEDS ORDERED: SODIUM CHLOR 0.9% 1000 ML INJ 1,000 ML IV ONE ×2 (16:57)
[2017-01-11] MEDS ORDERED: ACETAMINOPHEN 650 MG SUPP RECTAL ONE (17:00)
[2017-01-11] MEDS ORDERED: METO25TA3 PO (17:25)
[2017-01-11] MEDS ORDERED: DILA100C PO (17:25)
--- NOTE | 2017-01-11 17:37 | RADRPT ---
EXAM DATE/TIME: 01/11/2017 17:17 [place] COMPARISON: CHEST SINGLE AP, October 11, 2016, 2:50. INDICATIONS : Syncopal episode today MEDICAL HISTORY : Hypertension. Cardiovascular disease. Seizures SURGICAL HISTORY : None. ENCOUNTER: Initial ACUITY: 1 day PAIN SCORE: Non-responsive. LOCATION: Bilateral abdomen FINDINGS: The lungs are clear without infiltrate, nodule, or mass. There is no appreciable pleural effusion fo r technique. Heart and mediastinum are unremarkable. There are atherosclerotic calcifications of the aorta due to chronic atherosclerotic disease. CONCLUSION: No acute cardiopulmonary disease. Juliet Monreal MD on January 11, 2017 at 17:34 Board Certified Radiologist. This report was verified electronically.
[2017-01-11 17:38] LABS: AUTOMATED NEUTROPHIL # 7.8 TH/MM3 (1.8-7.7); BASOPHIL % 0.4 % (0.0-2.0); EOSINOPHIL % 0.2 % (0.0-4.0); HEMATOCRIT 41.8 % (35.0-46.0); HEMO FLAGS DIFF FINAL; LYMPH % 6.6 % (9.0-44.0); LYMPHOCYTE # 0.6 TH/MM3 (1.0-4.8); MEAN CELL VOLUME 94.9 FL (80.0-100.0); MEAN CORPUSCULAR HEMOGLOBIN 31.3 PG (27.0-34.0); MONO % 7.2 % (0.0-8.0); NEUT % 85.6 % (16.0-70.0); PLATELET COUNT 178 TH/MM3 (150-450); RED BLOOD COUNT 4.41 MIL/MM3 (4.00-5.30); RED CELL DISTRIBUTION WIDTH 14.2 % (11.6-17.2); WHITE BLOOD COUNT 9.1 TH/MM3 (4.0-11.0)
[2017-01-11 17:52] LABS: BLOOD, URINE TRACE (NEG); GLUCOSE,URINE NEG (NEG); GRANULAR CAST, URINE 43 /lpf; HYALINE CAST, URINE 1 /lpf (RARE); KETONE, URINE NEG (NEG); NITRITE,URINE NEG (NEG); PH, URINE 5.5 (5.0-8.5); URINE COLOR YELLOW (YELLW/STRAW)
[2017-01-11 17:53] LABS: ALT (GPT) 50 U/L (10-53); ANION GAP 12 MEQ/L (5-15); AST (GOT) 26 U/L (15-37); BICARBONATE 22.8 MEQ/L (21.0-32.0); BLOOD UREA NITROGEN 18 MG/DL (7-18); CHLORIDE 103 MEQ/L (98-107); GLOMERULAR FILTRATION RATE 59 ML/MIN (>89); POTASSIUM 4.5 MEQ/L (3.5-5.1); SODIUM (NA) 138 MEQ/L (136-145)
[2017-01-11 17:55] LABS: ALKALINE PHOSPHATASE 112 U/L (45-117); TOTAL BILIRUBIN ADULT 0.2 MG/DL (0.2-1.0)
[2017-01-11 17:56] LABS: COMMENT (UR) CATH-CULT NOT IND; CULTURE IF INDICATED CATH CULTURE NOT IND
--- NOTE | 2017-01-11 18:13 | PD ---
HPI . Seizure Chief Complaint: Seizure Time Seen by Provider: 16:44 Travel History International Travel<30 days: No Contact w/Intl Traveler<30days: No Traveled to known affect area: No History of Present Illness HPI This [facility]. The patient is unable to give any history whatsoever. PFSH Past Medical History Hx Anticoagulant Therapy: Yes (325MG ASA DAILY) Arthritis: Yes Asthma: No Autoimmune Disease: No Blood Disorders: No Bipolar Disorder: Yes Anxiety: Yes Depression: Yes Heart Rhythm Problems: No Cancer: No Cardiovascular Problems: Yes (hyper tension) High Cholesterol: No Chemotherapy: No Chest Pain: Yes (gets chest pain) Congestive Heart Failure: No COPD: No Cerebrovascular Accident: Yes Diabetes: No Diminished Hearing: Yes Endocrine: No Gastrointestinal Disorders: Yes (IBS) Genetic Disorder: Yes (IBS) GERD: No Glaucoma: No Genitourinary: Yes (incontinent of urine) Headaches: Yes Hepatitis: No Hiatal Hernia: No Hypertension: Yes Immune Disorder: No Implanted Vascular Access Dvce: No Kidney Stones: No Musculoskeletal: Yes (has seizures then becomes weak and falls) Neurologic: Yes (seizure disorder) Psychiatric: Yes (psych history) Reproductive: Yes (tubes tied) Respiratory: No Immunizations Current: No Migraines: No Myocardial Infarction: No Radiation Therapy: No Renal Failure: No Schizophrenia: Yes (SCHIZOAFFECTIVE) Seizures: Yes Sickle Cell Disease: No Sleep Apnea: No Thyroid Disease: No Ulcer: No PNEUMOCCOCAL Vaccine (Year): 2 ?: Not Menopausal: Yes : 0 Tubal Ligation: Yes Past Surgical History Abdominal Surgery: No AICD: No Appendectomy: No Arteriovenous Shunt: No Cardiac Surgery: No Cholecystectomy: No Ear Surgery: Yes (BILATERAL EAR) Endocrine Surgery: No Eye Surgery: No Genitourinary Surgery: No Gynecologic Surgery: Yes (tubal ligation) Hysterectomy: No Insulin Pump: No Joint Replacement: No Neurologic Surgery: No Oral Surgery: Yes (Jaw/ TMJ) Pacemaker: No Thoracic Surgery: No Other Surgery: Yes (see below) Social History Alcohol Use: No Tobacco Use: No Substance Use: No Allergies-Medications (Allergen,Severity, Reaction): Coded Allergies: Aripiprazole (Verified Allergy, Unknown, 12/07/16) Reported Meds & Prescriptions Reported Meds & Active Scripts Active Topamax (Topiramate) 100 Mg Tab 100 Mg PO BID Reported Dilantin (Phenytoin Extended) 100 Mg Cap 200 Mg PO BID Metoprolol Tartrate 25 Mg Tab 25 Mg PO BID Folic Acid 1 Mg Tablet 1 Mg PO DAILY Colace (Docusate Sodium) 100 Mg Capsule 100 Mg PO DAILY Symbicort Inh (Budesonide/Formoterol Fumarate) 160-4.5 Mcg/Act Aero 2 Puff INH BID Vimpat (Lacosamide) 100 Mg Tab 100 Mg PO TID Ventolin Hfa 18 GM Inh (Albuterol Sulfate) 90 Mcg/Act Aer 2 Puff INH QID Spiriva Handihaler (Tiotropium Inh) 18 Mcg Cap 1 Cap INH DAILY DO NOT SWALLOW CAPS Levetiracetam 1,000 Mg Tab 1,000 Mg PO TID Citalopram (Citalopram Hydrobromide) 40 Mg Tab 40 Mg PO DAILY Atorvastatin (Atorvastatin Calcium) 80 Mg Tab 80 Mg PO HS Aspirin EC (Aspirin) 81 Mg Tabdr 81 Mg PO DAILY Review of Systems ROS Limitations: Altered Mental Status Physical Exam Narrative Vital Signs Date Time Temp Pulse Resp B/P Pulse Ox O2 Delivery O2 Flow Rate FiO2 01/11/17 16:29 102.4 104 18 135/74 97 Non-Rebreather 100 01/11/17 16:29 97 Non-Rebreather 100 01/11/17 16:29 102.4 104 18 135/74 97 GENERAL: Patient is unresponsive. She does have eye motion. SKIN: Diaphoretic. HEAD: Atraumatic. Normocephalic. EYES: Pupils equal and round. Extraocular movements are intact. ENT: No nasal bleeding or discharge. Mucous membranes pink and moist. NECK: Trachea midline. Neck is supple. CARDIOVASCULAR: Regular rate and rhythm. RESPIRATORY: No accessory muscle use. Lungs sound clear anteriorly. GASTROINTESTINAL: Abdomen soft, non-tender, nondistended. MUSCULOSKELETAL: No obvious deformities. No edema. NEUROLOGICAL: GCS is 6. 1 for eye opening, 1 for verbal, 4 for motor. PSYCHIATRIC: Unable to assess Data Data Last Documented VS Vital Signs Date Time Temp Pulse Resp B/P Pulse Ox O2 Delivery O2 Flow Rate FiO2 01/11/17 18:10 98 Nasal Cannula 2 01/11/17 16:29 102.4 104 18 135/74 100 Orders Electrocardiogram (01/11/17 ) Electrocardiogram (01/11/17 16:57) Complete Blood Count With Diff (01/11/17 16:57) Comprehensive Metabolic Panel (01/11/17 16:57) Lactic Acid Sepsis Protocol (01/11/17 16:57) Urinalysis - C+S If Indicated (01/11/17 16:57) Blood Culture (01/11/17 16:57) Chest, Single Ap (01/11/17 16:57) Blood Glucose (01/11/17 16:57) Ecg Monitoring (01/11/17 16:57) Iv Access Insert/Monitor (01/11/17 16:57) Cath For Specimen (01/11/17 16:57) Oximetry (01/11/17 16:57) Oxygen Administration (01/11/17 16:57) Acetaminophen Supp (Tylenol Supp) (01/11/17 17:00) Sodium Chlor 0.9% 1000 Ml Inj (Ns 1000 M (01/11/17 16:57) Sodium Chlor 0.9% 1000 Ml Inj (Ns 1000 M (01/11/17 16:57) Sodium Chlor 0.9% 1000 Ml Inj (Ns 1000 M (01/11/17 16:57) Influenzae A/B Antigen (01/11/17 18:13) Bacterial Antigen Csf (01/11/17 18:28) Csf Hsv I/Ii Dna,Pcr (01/11/17 18:28) Csf Cell Count + Differential (01/11/17 18:28) Glucose, Csf (01/11/17 18:28) Total Protein, Csf (01/11/17 18:28) Csf Culture And Gram Stain (01/11/17 18:28) Phenytoin (Dilantin) (01/11/17 18:30) Levetiracetam (01/11/17 18:30) Labs Laboratory Tests Test 01/11/17 01/11/17 01/11/17 17:00 17:05 17:11 Urine Color YELLOW Urine Turbidity CLEAR Urine pH 5.5 Urine Specific Fisher 1.019 Urine Protein 30 mg/dL Urine Glucose (UA) NEG mg/dL Urine Ketones NEG mg/dL Urine Occult Blood TRACE Urine Nitrite NEG Urine Bilirubin NEG Urine Urobilinogen LESS THAN 2.0 MG/DL Urine Leukocyte Esterase NEG Urine RBC 1 /hpf Urine WBC 2 /hpf Urine Hyaline Casts 1 /lpf Urine Granular Casts 43 /lpf Microscopic Urinalysis Comment CATH-CULT NOT IND White Blood Count 9.1 TH/MM3 Red Blood Count 4.41 MIL/MM3 Hemoglobin 13.8 GM/DL Hematocrit 41.8 % Mean Corpuscular Volume 94.9 FL Mean Corpuscular Hemoglobin 31.3 PG Mean Corpuscular Hemoglobin 33.0 % Concent Red Cell Distribution Width 14.2 % Platelet Count 178 TH/MM3 Mean Platelet Volume 7.5 FL Neutrophils (%) (Auto) 85.6 % Lymphocytes (%) (Auto) 6.6 % Monocytes (%) (Auto) 7.2 % Eosinophils (%) (Auto) 0.2 % Basophils (%) (Auto) 0.4 % Neutrophils # (Auto) 7.8 TH/MM3 Lymphocytes # (Auto) 0.6 TH/MM3 Monocytes # (Auto) 0.7 TH/MM3 Eosinophils # (Auto) 0.0 TH/MM3 Basophils # (Auto) 0.0 TH/MM3 CBC Comment DIFF FINAL Differential Comment Sodium Level 138 MEQ/L Potassium Level 4.5 MEQ/L Chloride Level 103 MEQ/L Carbon Dioxide Level 22.8 MEQ/L Anion Gap 12 MEQ/L Blood Urea Nitrogen 18 MG/DL Creatinine 0.96 MG/DL Estimat Glomerular Filtration 59 ML/MIN Rate Random Glucose 107 MG/DL Calcium Level 8.2 MG/DL Total Bilirubin 0.2 MG/DL Aspartate Amino Transf 26 U/L (AST/SGOT) Alanine Aminotransferase 50 U/L (ALT/SGPT) Alkaline Phosphatase 112 U/L Total Protein 6.9 GM/DL Albumin 3.5 GM/DL Lactic Acid Level 5.0 mmol/L [facility] Medical Decision Making Medical Screen Exam Complete: Yes Emergency Medical Condition: Yes Medical Record Reviewed: Yes (medical history is significant for coronary artery disease, hypertension, hyperlipidemia, seizure disorder and schizophrenia. Her seizure medications include Dilantin and Keppra.) Interpretation(s) EKG shows a sinus rhythm with a ventricular rate of 90. No ST segment elevation or depression. Differential Diagnosis Differential diagnosis of seizure includes but is not limited to epilepsy, electrolyte abnormality, previous stroke, closed head injury Differential diagnosis of fever includes but is not limited to viral illness, strep throat, otitis media, pneumonia, sepsis, UTI Narrative Course This patient has a known seizure disorder. However, she is also febrile at 102.4. Sepsis workup has been initiated. Last Impressions Chest X-Ray 01/11/17 1657 Signed Impressions: Service Date/Time: Wednesday, January 11, 2017 17:17 - CONCLUSION: No acute cardiopulmonary disease. Juliet Monreal MD The chest x-ray was independently viewed by me. CBC Diagram 01/11/17 17:05 BMP Diagram 01/11/17 17:05 Lactic acid is 5.0. UA is negative for infection. This patient meets SIRS criteria but does not have an obvious source for infection. She does have lactic acidosis. She needs to be admitted to the hospital. Her mental status has not yet improved at all since her initial presentation. Critical Care Narrative Aggregate critical care time was 60 minutes. Time to perform other separately billable procedures was not included in the critical care time. My time did not include minutes spent treating any other patients simultaneously or on activities that did not directly contribute to the patient's treatment. The services I provided to this patient were to treat and/or prevent clinically significant deterioration due to fever and altered mental status I provided critical care services requiring my management, as noted below: Chart data review, documentation time, medication orders and management, vital sign assessments/reviewing monitor data, ordering and reviewing lab tests, ordering and interpreting/reviewing x-rays and diagnostic studies, care of the patient and discussion of the patient with the admitting physicians Procedures Procedure Narrative LUMBAR PUNCTURE: The patient was placed in the left lateral decubitus position. The lumbar area of the back was prepped with Betadine and sterilely draped. The L3 -- L4 interspace was infiltrated with 1% lidocaine plain. Number 18 gauge LP needle was placed in the interspace. Opening pressure deferred. Number 4 milliliters of clear CSF were obtained. Patient tolerated procedure well. Sepsis Criteria SIRS Criteria (2 or more): Temp > 100.9 or < 96.8, Heart rate over 90 Severe Sepsis (+one): Lactate >2 Septic Shock Criteria: Lactic acid >=4 Criteria Outcome: Meets SIRS criteria Diagnosis Primary Impression: Seizure disorder Additional Impressions: SIRS (systemic inflammatory response syndrome) Fever Qualified Code: R50.9 - Fever, unspecified fever cause Lactic acidosis Altered mental status Qualified Code: R40.2432 - Jaelyn coma scale total score 3-8, at arrival to emergency department Admitting Information Admitting Physician Requests: Admit Condition: Fair Noelle Devine MD Jan 11, 2017 18:13
[2017-01-11 19:18] LABS: LACTIC ACID GHOST NOT REPORTABLE
[2017-01-11] MEDS: RESP: ALBUTEROL 2.5 MG/IPRATROPIUM 0.5 MG NEB (SCH) INH ×3 (19:25→21:56)
[2017-01-11 19:38] LABS: BLOOD GAS BASE EXCESS -2.6 mmol/L (-2-2); BLOOD GAS CARBOXYHEMOGLOBIN 1.1 % (0-4); BLOOD GAS HCO3 22 mmol/L (22-26); BLOOD GAS METHEMOGLOBIN 0.6 % (0-2); BLOOD GAS O2 HGB SATURATION 89 % (90-100); BLOOD GAS OXYGEN CONTENT 15.4 Vol % (12.0-20.0); BLOOD GAS PCO2 43 mmHg (38-42); BLOOD GAS PO2 62 mmHG (61-120); BLOOD GAS TOTAL HGB 12.3 G/DL (12.0-16.0); CRITICAL VALUE YES; DRAW SITE RT FEMORAL; LITER FLOW 2 L/M; NUMBER OF ARTERIAL PUNCTURES 1; OXYGEN DEVICE NASAL CANNULA; TEMP CORR TO 98.6
[2017-01-11 19:39] LABS: STAT YES
[2017-01-11] MEDS ORDERED: LORazepam 2 MG/ML VIAL IV PUSH ONE (19:45)
[2017-01-11] MEDS ORDERED: VANCOMYCIN INJ 1,000 MG in SODIUM CHLOR 0.9% 250 ML INJ 250 ML IV STA (19:51)
[2017-01-11] MEDS ORDERED: cefTAZidime INJ 2,000 MG in SODIUM CHLORIDE 0.9% INJ 100 ML IV STA (19:51)
[2017-01-11] MEDS ORDERED: DEXAMETHASONE SOD PHOS 20 MG/5 ML VIAL IV PUSH STA (19:51)
[2017-01-11] MEDS ORDERED: VALPROATE INJ 500 MG in SODIUM CHLORIDE 0.9% INJ 100 ML IV ONE (20:15)
--- NOTE | 2017-01-11 20:26 | RADRPT ---
EXAM DATE/TIME: 01/11/2017 20:11 [place] COMPARISON: CT BRAIN W/O CONTRAST, December 07, 2016, 0:26. INDICATIONS : History of seizures, non responsive. RADIATION DOSE: 35.92 CTDIvol (mGy) MEDICAL HISTORY : Cerebrovascular disease. Seizures. Cardiovascular disease SURGICAL HISTORY : Tubal ligation. ENCOUNTER: Initial ACUITY: 1 day PAIN SCALE: 0/10 LOCATION: cranial TECHNIQUE: Multiple contiguous axial images were obtained of the head. Using automated exposure control and adj ustment of the mA and/or kV according to patient size, radiation dose was kept as low as reasonably a chievable to obtain optimal diagnostic quality images. DICOM format image data is available electro nically for review and comparison. FINDINGS: CEREBRUM: The ventricles are normal for age. No evidence of midline shift, mass lesion, hemorrhage or acute in farction. No extra-axial fluid collections are seen. POSTERIOR FOSSA: The cerebellum and brainstem are intact. The 4th ventricle is midline. The cerebellopontine angle i s unremarkable. EXTRACRANIAL: The visualized portion of the orbits is intact. SKULL: The calvaria is intact. No evidence of skull fracture. CONCLUSION: No acute intracranial abnormality. Ernesto Parham MD on January 11, 2017 at 20:24 Board Certified Radiologist. This report was verified electronically.
--- NOTE | 2017-01-11 21:18 | PD ---
Physical Exam Narrative General: Minimally responsive, focused exam performed Skin: Warm and dry Eyes: Pupils equal Neck: No JVD, trachea midline Cardiovascular: Regular rate and rhythm, no murmur Respiratory: Normal respiratory effort noted, clear to auscultation bilaterally at apices Abdomen: Soft, nondistended Neuro: Withdrawals to pain, moans to pain, eyes open to pain Data Data Last Documented VS Vital Signs Date Time Temp Pulse Resp B/P Pulse Ox O2 Delivery O2 Flow Rate FiO2 01/11/17 19:10 96 Nasal Cannula 4.00 01/11/17 18:30 106/58 01/11/17 17:30 84 20 100 01/11/17 16:29 102.4 Orders Electrocardiogram (01/11/17 ) Complete Blood Count With Diff (01/11/17 16:57) Comprehensive Metabolic Panel (01/11/17 16:57) Lactic Acid Sepsis Protocol (01/11/17 16:57) Urinalysis - C+S If Indicated (01/11/17 16:57) Blood Culture (01/11/17 16:57) Chest, Single Ap (01/11/17 16:57) Blood Glucose (01/11/17 16:57) Ecg Monitoring (01/11/17 16:57) Iv Access Insert/Monitor (01/11/17 16:57) Cath For Specimen (01/11/17 16:57) Oximetry (01/11/17 16:57) Oxygen Administration (01/11/17 16:57) Acetaminophen Supp (Tylenol Supp) (01/11/17 17:00) Sodium Chlor 0.9% 1000 Ml Inj (Ns 1000 M (01/11/17 16:57) Sodium Chlor 0.9% 1000 Ml Inj (Ns 1000 M (01/11/17 16:57) Sodium Chlor 0.9% 1000 Ml Inj (Ns 1000 M (01/11/17 16:57) Influenzae A/B Antigen (01/11/17 18:13) Bacterial Antigen Csf (01/11/17 18:28) Csf Hsv I/Ii Dna,Pcr (01/11/17 18:28) Csf Cell Count + Differential (01/11/17 18:28) Glucose, Csf (01/11/17 18:28) Total Protein, Csf (01/11/17 18:28) Csf Culture And Gram Stain (01/11/17 18:28) Phenytoin (Dilantin) (01/11/17 18:30) Levetiracetam (01/11/17 18:30) Ct Brain W/O Iv Contrast(Rout) (01/11/17 ) Albuterol-Ipratropium Neb (Duoneb Neb) (01/11/17 19:15) Arterial Blood Gas (Abg) (01/11/17 19:05) Lorazepam Inj (Ativan Inj) (01/11/17 19:45) Lactic Acid (01/11/17 19:47) Dexamethasone Inj (Decadron Inj) (01/11/17 19:51) Ceftazidime Inj (Fortaz Inj) (01/11/17 19:51) Vancomycin Inj (Vancomycin Inj) (01/11/17 19:51) Valproate Inj (Depacon Inj) (01/11/17 20:15) Consult Neurology (01/11/17 ) Admit Order (Ed Use Only) (01/11/17 20:22) Labs Laboratory Tests Test 01/11/17 01/11/17 01/11/17 01/11/17 17:00 17:05 17:11 19:00 Urine Color YELLOW Urine Turbidity CLEAR Urine pH 5.5 Urine Specific Morrill 1.019 Urine Protein 30 mg/dL Urine Glucose (UA) NEG mg/dL Urine Ketones NEG mg/dL Urine Occult Blood TRACE Urine Nitrite NEG Urine Bilirubin NEG Urine Urobilinogen LESS THAN 2.0 MG/DL Urine Leukocyte Esterase NEG Urine RBC 1 /hpf Urine WBC 2 /hpf Urine Hyaline Casts 1 /lpf Urine Granular Casts 43 /lpf Microscopic Urinalysis Comment CATH-CULT NOT IND White Blood Count 9.1 TH/MM3 Red Blood Count 4.41 MIL/MM3 Hemoglobin 13.8 GM/DL Hematocrit 41.8 % Mean Corpuscular Volume 94.9 FL Mean Corpuscular Hemoglobin 31.3 PG Mean Corpuscular Hemoglobin 33.0 % Concent Red Cell Distribution Width 14.2 % Platelet Count 178 TH/MM3 Mean Platelet Volume 7.5 FL Neutrophils (%) (Auto) 85.6 % Lymphocytes (%) (Auto) 6.6 % Monocytes (%) (Auto) 7.2 % Eosinophils (%) (Auto) 0.2 % Basophils (%) (Auto) 0.4 % Neutrophils # (Auto) 7.8 TH/MM3 Lymphocytes # (Auto) 0.6 TH/MM3 Monocytes # (Auto) 0.7 TH/MM3 Eosinophils # (Auto) 0.0 TH/MM3 Basophils # (Auto) 0.0 TH/MM3 CBC Comment DIFF FINAL Differential Comment Sodium Level 138 MEQ/L Potassium Level 4.5 MEQ/L Chloride Level 103 MEQ/L Carbon Dioxide Level 22.8 MEQ/L Anion Gap 12 MEQ/L Blood Urea Nitrogen 18 MG/DL Creatinine 0.96 MG/DL Estimat Glomerular Filtration 59 ML/MIN Rate Random Glucose 107 MG/DL Calcium Level 8.2 MG/DL Total Bilirubin 0.2 MG/DL Aspartate Amino Transf 26 U/L (AST/SGOT) Alanine Aminotransferase 50 U/L (ALT/SGPT) Alkaline Phosphatase 112 U/L Total Protein 6.9 GM/DL Albumin 3.5 GM/DL Lactic Acid Level 5.0 mmol/L CSF Volume (Tube 1) 1.0 ML CSF Supernatant Color (tube 1) CLEAR CSF Gross Blood (Tube 1) 0 CSF Volume (Tube 2) 1.0 ML CSF Supernatant Color (tube 2) CLEAR CSF WBC (Tube 2) 0 /MM3 CSF RBC (Tube 2) 9 /MM3 CSF Volume (Tube 3) 1.0 ML CSF Supernatant Color (tube 3) CLEAR CSF Volume (Tube 4) 1.0 ML CSF Supernatant Color (tube 4) CLEAR CSF Gross Blood (Tube 4) 0 CSF Neutrophils 0 % CSF Lymphocytes 0 % CSF Glucose 71 MG/DL CSF Total Protein 28.1 MG/DL Test 01/11/17 01/11/17 01/11/17 19:05 19:23 19:54 Blood Gas Puncture Site RT FEMORAL Blood Gas Patient Temperature 98.6 Blood Gas HCO3 22 mmol/L Blood Gas Base Excess -2.6 mmol/L Blood Gas Oxygen Saturation 89 % Arterial Blood pH 7.34 Arterial Blood Partial 43 mmHg Pressure CO2 Arterial Blood Partial 62 mmHG Pressure O2 Arterial Blood Oxygen Content 15.4 Vol % Arterial Blood 1.1 % Carboxyhemoglobin Arterial Blood Methemoglobin 0.6 % Blood Gas Hemoglobin 12.3 G/DL Oxygen Delivery Device NASAL CANNULA Blood Gas Liter Flow 2 L/M Phenytoin (Dilantin) Level 10.6 MCG/ML Lactic Acid Level 2.2 mmol/L [facility] Supervised Visit with IRMA: No Interpretation(s) Last 24 hours Impressions Chest X-Ray 01/11/17 1657 Signed Impressions: Service Date/Time: Wednesday, January 11, 2017 17:17 - CONCLUSION: No acute cardiopulmonary disease. Juliet Monreal MD Head CT 01/11/17 0000 Signed Impressions: Service Date/Time: Wednesday, January 11, 2017 20:11 - CONCLUSION: No acute intracranial abnormality. Ernesto Parham MD Narrative Course Signed over to me to follow CSF and admit. On evaluation patient is minimally responsive and shortly after evaluating patient and she had a witnessed generalized tonic-clonic seizure. Ativan was ordered but by the time it was drawn patient had stopped seizing. We'll discuss with neurology, while awaiting CSF will dose with 2 g of cephalosporin, vancomycin, Decadron and add on CT brain Will dose with 500 mg of Depakote as recommended by neurology. Patient is still postictal so we'll monitor closely in the ICU. ABG reviewed. Critical Care Narrative Aggregate critical care time was 35 minutes. Time to perform other separately billable procedures was not included in the critical care time. My time did not include minutes spent treating any other patients simultaneously or on activities that did not directly contribute to the patient's treatment. The services I provided to this patient were to treat and/or prevent clinically significant deterioration that could result in: Status epilepticus, respiratory failure I provided critical care services requiring my management, as noted below: Chart data review, documentation time, medication orders and management, vital sign assessments/reviewing monitor data, ordering and reviewing lab tests, ordering and interpreting/reviewing x-rays and diagnostic studies, care of the patient and discussion of the patient with the admitting physicians. Physician Communication Physician Communication dr sloan states to place on depakote 500mg iv times 1 and increase vimpat to 200mg tid and place in icu dr recio agrees to admit Diagnosis Primary Impression: Fever Qualified Code: R50.9 - Fever, unspecified fever cause Additional Impressions: Seizure disorder Lactic acidosis Altered mental status Qualified Code: R40.2432 - Manlius coma scale total score 3-8, at arrival to emergency department SIRS (systemic inflammatory response syndrome) COPD (chronic obstructive pulmonary disease) Admitting Information Admitting Physician Requests: Admit Lisa Corona MD Jan 11, 2017 21:18
[2017-01-11] MEDS ORDERED: SODIUM CHLORIDE 0.9% FLUSH 10 ML FLUSH PRN (21:30)
[2017-01-11] MEDS ORDERED: BISACODYL 10 MG SUPP RECTAL PRN (21:30)
[2017-01-11] MEDS ORDERED: MAGNESIUM HYDROXIDE SUSP 30 ML CUP PO PRN (21:30)
[2017-01-11] MEDS ORDERED: ACETAMINOPHEN 325 MG TAB PO PRN (21:30)
[2017-01-11] MEDS ORDERED: CHLORHEXIDINE GLUCONATE 2 % 1 PACK (2 CLOTHS) TOP PRN (21:30)
[2017-01-11] MEDS ORDERED: SENNOSIDES 8.6 MG TAB PO PRN (21:30)
[2017-01-11] MEDS ORDERED: LACTULOSE SYRUP 20 GM/30 ML CUP PO PRN (21:30)
[2017-01-11] MEDS ORDERED: MIDAZOLAM HCL 2 MG/2 ML VIAL IV PRN (21:30)
[2017-01-11] MEDS ORDERED: MISCELLANEOUS NURSING INFORMATION XX SCH (21:30)
[2017-01-11] MEDS ORDERED: RESP: ALBUTEROL 2.5 MG/IPRATROPIUM 0.5 MG NEB (PRN) INH (21:30)
--- NOTE | 2017-01-11 21:36 | HHI.HP ---
HPI Service Critical Care Medicine Primary Care Physician Rui Rose MD Admission Diagnosis lactic acidosis, altered mental status, seizure, fever Diagnosis: Travel History International Travel<30 Days: No Contact w/Intl Traveler <30 Da: No Traveled to Known Affected Are: No Review of Systems ROS Unobtainable due to patient's altered mental status and lethargy Past Family Social History Allergies: Coded Allergies: Aripiprazole (Verified Allergy, Unknown, 12/07/16) Past Medical History Hypertension Schizophrenia Seizure disorder Remote alcohol abuse Tobacco use disorder Remote history of cocaine use Past Surgical History Tubal Ligation Jaw Surgery Reported Medications Reported Meds & Active Scripts Active Topamax (Topiramate) 100 Mg Tab 100 Mg PO BID Reported Dilantin (Phenytoin Extended) 100 Mg Cap 200 Mg PO BID Metoprolol Tartrate 25 Mg Tab 25 Mg PO BID Folic Acid 1 Mg Tablet 1 Mg PO DAILY Colace (Docusate Sodium) 100 Mg Capsule 100 Mg PO DAILY Symbicort Inh (Budesonide/Formoterol Fumarate) 160-4.5 Mcg/Act Aero 2 Puff INH BID Vimpat (Lacosamide) 100 Mg Tab 100 Mg PO TID Ventolin Hfa 18 GM Inh (Albuterol Sulfate) 90 Mcg/Act Aer 2 Puff INH QID Spiriva Handihaler (Tiotropium Inh) 18 Mcg Cap 1 Cap INH DAILY DO NOT SWALLOW CAPS Levetiracetam 1,000 Mg Tab 1,000 Mg PO TID Citalopram (Citalopram Hydrobromide) 40 Mg Tab 40 Mg PO DAILY Atorvastatin (Atorvastatin Calcium) 80 Mg Tab 80 Mg PO HS Aspirin EC (Aspirin) 81 Mg Tabdr 81 Mg PO DAILY Active Ordered Medications Current Medications Medications (Trade) Dose Ordered Sig/Elizabet Route PRN Reason Start Time Stop Time Status Last Admin Dose Admin Albuterol Sulfate (Proair Hfa Inh) 2 puff QID INH 01/12/17 09:00 UNV Aspirin (Ecotrin Ec) 81 mg DAILY PO 01/12/17 09:00 UNV Atorvastatin Calcium (Lipitor) 80 mg HS PO 01/12/17 21:00 UNV Budesonide/ Formoterol Fumarate (Symbicort 160-4.5 Inh) 2 puff BID INH 01/12/17 09:00 UNV Citalopram Hydrobromide (CeleXA) 40 mg DAILY PO 01/12/17 09:00 UNV Docusate Sodium (Colace) 100 mg DAILY PO 01/12/17 09:00 UNV Folic Acid (Folate) 1 mg DAILY PO 01/12/17 09:00 UNV Lacosamide (Vimpat) 100 mg TID PO 01/12/17 09:00 UNV Levetriacetam (Keppra) 1,000 mg TID PO 01/12/17 09:00 UNV Metoprolol Tartrate (Lopressor) 25 mg BID PO 01/12/17 09:00 UNV Phenytoin (Dilantin) 200 mg BID PO 01/12/17 09:00 UNV Topiramate 100 mg 100 mg BID PO 01/12/17 09:00 UNV Sodium Chloride (NS 1000 ml Inj) 1,000 ml @ 84 mls/hr [id number] IV 01/11/17 21:27 UNV Sodium Chloride (NS Flush) 2 ml UNSCH PRN .XX FLUSH AFTER USING IV ACCESS 01/11/17 21:30 UNV Sodium Chloride (NS Flush) 2 ml BID .XX 01/12/17 09:00 UNV Acetaminophen (Tylenol) 650 mg Q6H PRN PO PAIN 1-10 AND/OR FEVER >101F 01/11/17 21:30 UNV Midazolam HCl (Versed Inj) 2 mg Q1H PRN IV SEDATION 01/11/17 21:30 UNV Enoxaparin Sodium (Lovenox Inj) 30 mg Q24H SQ 01/11/17 21:30 UNV Miscellaneous Information 1 [id number] XX 01/11/17 21:30 UNV Chlorhexidine Gluconate (Chlorhexidine 2% Cloth) 3 pack Taper DAILY@04 TOP 01/12/17 04:00 01/08/18 03:59 UNV Chlorhexidine Gluconate (Chlorhexidine 2% Cloth) 3 pack UNSCH PRN TOP HYGIENIC CARE 01/11/17 21:30 UNV Senna/Docusate Sodium (Radha-Colace) 1 tab BID PO 01/12/17 09:00 UNV Magnesium Hydroxide (Milk Of Magnesia Liq) 30 ml Q12H PRN PO MILD - MODERATE CONSTIPATION 01/11/17 21:30 UNV Sennosides (Senokot) 17.2 mg Q12H PRN PO MODERATE - SEVERE CONSTIPATION 01/11/17 21:30 UNV Bisacodyl (Dulcolax Supp) 10 mg DAILY PRN RECTAL SEVERE CONSITIPATION 01/11/17 21:30 UNV Lactulose (Lactulose Liq) 30 ml DAILY PRN PO SEVERE CONSITIPATION 01/11/17 21:30 UNV Family History No history of coronary artery disease diabetes or cancer Social History History of alcohol abuse, Smokes 1ppd. Remote history of Cocaine Abuse. Physical Exam Vital Signs Vital Signs Date Time Temp Pulse Resp B/P Pulse Ox O2 Delivery O2 Flow Rate FiO2 01/11/17 20:45 86 119/62 100 Nasal Cannula 2 01/11/17 19:10 96 Nasal Cannula 4.00 01/11/17 18:30 106/58 100 Nasal Cannula 2 01/11/17 18:10 98 Nasal Cannula 2 01/11/17 17:30 84 20 111/65 100 Non-Rebreather 100 01/11/17 16:29 102.4 104 18 135/74 97 Non-Rebreather 100 01/11/17 16:29 97 Non-Rebreather 100 01/11/17 16:29 102.4 104 18 135/74 97 Physical Exam GENERAL: Elderly appearing woman, very lethargic SKIN: Warm and dry. HEAD: Normocephalic. EYES: No scleral icterus. No injection or drainage. NECK: Supple, trachea midline. No JVD or lymphadenopathy. CARDIOVASCULAR: Regular rate and rhythm without murmurs, gallops, or rubs. RESPIRATORY: Breath sounds equal bilaterally. No accessory muscle use. GASTROINTESTINAL: Abdomen soft, non-tender, nondistended. MUSCULOSKELETAL: No cyanosis, or edema. BACK: Nontender without obvious deformity. No CVA tenderness. EXTREMITIES: No clubbing cyanosis or edema Laboratory Laboratory Tests Test 01/11/17 01/11/17 01/11/17 01/11/17 17:00 17:05 17:11 19:00 Urine Color YELLOW Urine Turbidity CLEAR Urine pH 5.5 Urine Specific [place] 1.019 Urine Protein 30 Urine Glucose (UA) NEG Urine Ketones NEG Urine Occult Blood TRACE Urine Nitrite NEG Urine Bilirubin NEG Urine Urobilinogen LESS THAN 2.0 Urine Leukocyte Esterase NEG Urine RBC 1 Urine WBC 2 Urine Hyaline Casts 1 Urine Granular Casts 43 Microscopic Urinalysis Comment CATH-CULT NOT IND White Blood Count 9.1 Red Blood Count 4.41 Hemoglobin 13.8 Hematocrit 41.8 Mean Corpuscular Volume 94.9 Mean Corpuscular Hemoglobin 31.3 Mean Corpuscular Hemoglobin 33.0 Concent Red Cell Distribution Width 14.2 Platelet Count 178 Mean Platelet Volume 7.5 Neutrophils (%) (Auto) 85.6 Lymphocytes (%) (Auto) 6.6 Monocytes (%) (Auto) 7.2 Eosinophils (%) (Auto) 0.2 Basophils (%) (Auto) 0.4 Neutrophils # (Auto) 7.8 Lymphocytes # (Auto) 0.6 Monocytes # (Auto) 0.7 Eosinophils # (Auto) 0.0 Basophils # (Auto) 0.0 CBC Comment DIFF FINAL Differential Comment Sodium Level 138 Potassium Level 4.5 Chloride Level 103 Carbon Dioxide Level 22.8 Anion Gap 12 Blood Urea Nitrogen 18 Creatinine 0.96 Estimat Glomerular Filtration 59 Rate Random Glucose 107 Calcium Level 8.2 Total Bilirubin 0.2 Aspartate Amino Transf 26 (AST/SGOT) Alanine Aminotransferase 50 (ALT/SGPT) Alkaline Phosphatase 112 Total Protein 6.9 Albumin 3.5 Lactic Acid Level 5.0 CSF Glucose 71 CSF Total Protein 28.1 Test 01/11/17 01/11/17 01/11/17 19:05 19:23 19:54 Blood Gas Puncture Site RT FEMORAL Blood Gas Patient Temperature 98.6 Blood Gas HCO3 22 Blood Gas Base Excess -2.6 Blood Gas Oxygen Saturation 89 Arterial Blood pH 7.34 Arterial Blood Partial 43 Pressure CO2 Arterial Blood Partial 62 Pressure O2 Arterial Blood Oxygen Content 15.4 Arterial Blood 1.1 Carboxyhemoglobin Arterial Blood Methemoglobin 0.6 Blood Gas Hemoglobin 12.3 Oxygen Delivery Device NASAL CANNULA Blood Gas Liter Flow 2 Phenytoin (Dilantin) Level 10.6 Lactic Acid Level 2.2 Date/Time Procedure Status Source Growth 01/11/17 19:28 Influenza Types A,B Antigen (BROCK) - Final Complete Nasal Washing NEGATIVE FOR FLU A AND B ANTIGEN.... 01/11/17 19:00 Gram Stain - Final Resulted Cerebral Spinal Fluid Lumbar Puncture 01/11/17 19:00 CSF Culture Resulted Cerebral Spinal Fluid Lumbar Puncture Pending 01/11/17 17:10 Aerobic Blood Culture Received Blood Peripheral Pending 01/11/17 17:10 Anaerobic Blood Culture Received Blood Peripheral Pending Result Diagram: 01/11/17 1705 01/11/17 1705 Imaging Last 24 hours Impressions Chest X-Ray 01/11/17 1657 Signed Impressions: Service Date/Time: Wednesday, January 11, 2017 17:17 - CONCLUSION: No acute cardiopulmonary disease. Juliet Monreal MD Head CT 01/11/17 0000 Signed Impressions: Service Date/Time: Wednesday, January 11, 2017 20:11 - CONCLUSION: No acute intracranial abnormality. Ernesto Parham MD Assessment and Plan Assessment and Plan Seizure disorder - Lacosamide - Levetriacetam - Phenytoin - Topiramate - Midazolam when necessary Lactic acidosis - Due to seizures - Resolving the IV hydration Altered mental status - Postictal - LP negative - CT head negative Fevers - Blood cultures - Lumbar puncture - Follow-up results - Tylenol when necessary Hypertension - Metoprolol Schizophrenia - Citalopram Tobacco use disorder - Symbicort - Albuterol DVT GI prophylaxis - Teds SCDs - Lovenox - Heart healthy diet Critical Care: The total critical care time was 35 minutes. Time to perform other separately billable procedures was not included in the critical care time. Ray Gabriel MD Jan 11, 2017 21:36
[2017-01-11 21:39] LABS: GROSS BLOOD TUBE #1 0 (0); SUPERNATE COLOR TUBE #1 CLEAR (CLEAR)
[2017-01-11 21:40] LABS: GROSS BLOOD TUBE #4 0 (0); SUPERNATE COLOR TUBE #2 CLEAR (CLEAR); SUPERNATE COLOR TUBE #3 CLEAR (CLEAR); SUPERNATE COLOR TUBE #4 CLEAR (CLEAR)
[2017-01-11 21:41] LABS: CSF LYMPHOCYTES 0 %; CSF NEUTROPHILS 0 %; WBC TUBE #2 0 /MM3 (0-10)
[2017-01-11] MEDS: SODIUM CHLOR 0.9% 1000 ML INJ 1,000 ML IV SCH (22:00)
[2017-01-12] VITALS (26 sets, daily range): BP systolic 90–145; BP diastolic 52–71; PULSE 66–88; RESP 13–31; TEMP 98–99.1; O2SAT 97–100
[2017-01-12] MEDS: ENOXAPARIN SODIUM 30 MG/0.3 ML SYRINGE SQ SCH ×2 (00:49→20:23)
[2017-01-12] MEDS: CHLORHEXIDINE GLUCONATE 2 % 1 PACK (2 CLOTHS) TOP SCH (04:00)
[2017-01-12] MEDS: RESP: ALBUTEROL 2.5 MG/IPRATROPIUM 0.5 MG NEB (SCH) INH ×4 (04:30→20:36)
--- NOTE | 2017-01-12 04:52 | HHI.CCPN ---
Subjective Remarks/Hospital Course This patient was sent to us from a retirement for a seizure. The patient is unable to give any history whatsoever. Subjective 01/12: Patient currently resting in bed on room air. She is oriented to person only. Tmax 102.4. Currently 99.1. Status post LP which was negative. CT head negative. Objective Vital Signs Date Time Temp Pulse Resp B/P Pulse Ox O2 Delivery O2 Flow Rate FiO2 01/12/17 01:30 99.1 82 15 117/60 99 01/12/17 00:08 Nasal Cannula 2 01/11/17 17:30 100 Result Diagram: 01/11/17 1705 01/11/17 1705 Other Results Microbiology Date/Time Procedure Status Source Growth 01/11/17 19:28 Influenza Types A,B Antigen (BROCK) - Final Complete Nasal Washing NEGATIVE FOR FLU A AND B ANTIGEN.... 01/11/17 19:00 Gram Stain - Final Resulted Cerebral Spinal Fluid Lumbar Puncture 01/11/17 19:00 CSF Culture Resulted Cerebral Spinal Fluid Lumbar Puncture Pending 01/11/17 17:10 Aerobic Blood Culture Received Blood Peripheral Pending 01/11/17 17:10 Anaerobic Blood Culture Received Blood Peripheral Pending Imaging Last 72 hours Impressions Chest X-Ray 01/11/17 1657 Signed Impressions: Service Date/Time: Wednesday, January 11, 2017 17:17 - CONCLUSION: No acute cardiopulmonary disease. Juliet Monreal MD Head CT 01/11/17 0000 Signed Impressions: Service Date/Time: Wednesday, January 11, 2017 20:11 - CONCLUSION: No acute intracranial abnormality. Ernesto Parham MD Objective Remarks GENERAL: 61-year-old female, critically ill currently resting in bed in no acute distress SKIN: Warm and dry. No rash HEAD: Atraumatic. Normocephalic. EYES: Pupils equal and round. No scleral icterus. No injection or drainage. ENT: No nasal bleeding or discharge. Mucous membranes pink and moist. NECK: Trachea midline. No JVD. CARDIOVASCULAR: Regular rate and rhythm. S1, S2. No S4. Without murmur RESPIRATORY: Clear to auscultation. Breath sounds equal bilaterally. GASTROINTESTINAL: Abdomen soft, non-tender, nondistended. I Stone bowel sounds are appreciated MUSCULOSKELETAL: Extremities without difficulty and peripheral edema. No obvious deformities. NEUROLOGICAL: Awake and alert. No obvious cranial nerve deficits. Patient with underlying right upper and lower extremity weakness with strength 4-5. Normal sensation to light touch and pinprick. Cerebellar/gait not assessed A/P Assessment and Plan Neuro/Psych: Seizure disorder NOS History status epilepticus History as TIA with residual right-sided weakness TMJ History of EtOH abuse quit 5 years ago History of crack cocaine use Schizoaffective disorder CT head 01/11 revealed no acute intracranial findings Status post lumbar puncture - glucose 71. MBS 107. Protein 28. No white cells. Gram stain negative. Resume home medications Vimpat 100 mg 3 times a day, Keppra 1000 g 3 times a day , Topamax 100 mg twice a day and Dilantin 200 mg twice a day. Dilantin level 10.6. Keppra levels pending Neurology consultation Seizure precautions Will hold Celexa with underlying seizure disorder Received 10 mg Decadron in ED. CV: History of hypertension Dyslipidemia Lactic acidosis secondary to seizures resolving History myocardial infarction Continue metoprolol 25 mg by mouth twice a day/home medication for hypertension Continue aspirin 81 mg daily Continue atorvastatin 80 mg by mouth daily for dyslipidemia Currently normal saline at 84 cc an hour. Last lactate 2.2. Status post 3 liters normal saline in ED. Resp: History COPD Ongoing tobaccoism On Symbicort 160/4.5 2+ twice a day and Spiriva 18 g 1 capsule inhalation daily at home. On duo nebs every 6 hours and albuterol every 2 hours when necessary dyspnea Nasal cannula to maintain saturations greater than equal to 92% Incentive spirometry while awake Chest x-ray on admission revealed no acute cardiopulmonary findings Tobacco cessation information booklet provided GI: History of gastroesophageal reflux disease History of IBS Advance diet as tolerated heart healthy Protonix for GI prophylaxis Radha-Colace for bowel regimen : Hinds catheter if indicated for accurate I's and O's in a critically ill patient Endo: History of hypothyroidism Check TSH Sliding-scale insulin if indicated to maintain euglycemia Renal: Creatinine currently within normal limits Monitor urine output Accurate I's and O's Heme: CBC within normal limits Follow-up CBC in AM. ID: Status post LP in ED which was essentially negative Monitor for infection Receive 1 dose of vancomycin and Ceftaz in ED. FEN: Replace electrolytes as clinically indicated MSK: Osteoarthritis PT evaluate and treat Access - Utilize peripheral IV. Central line if indicated Prophylaxis - GI - Protonix - DVT - SCD/on Lovenox per Dr. Gabriel Level II Luis Carty MD Jan 12, 2017 04:52 Luis Carty MD Jan 12, 2017 04:52
[2017-01-12] MEDS ORDERED: RESP: ALBUTEROL 2.5 MG/3 ML NEB (PRN) NEB (05:15)
[2017-01-12] MEDS ORDERED: DEXTROSE 50% IN WATER 50 ML VIAL(D50) IV PRN (05:15)
[2017-01-12] MEDS ORDERED: GLUCAGON 1 MG/ML VIAL OTHER PRN (05:15)
[2017-01-12 06:27] LABS: ANION GAP 10 MEQ/L (5-15); AST (GOT) 36 U/L (15-37); BICARBONATE 19.2 MEQ/L (21.0-32.0); CHLORIDE 110 MEQ/L (98-107); GLOMERULAR FILTRATION RATE 82 ML/MIN (>89); MAGNESIUM 1.9 MG/DL (1.5-2.5); SODIUM (NA) 139 MEQ/L (136-145)
[2017-01-12 06:28] LABS: AUTOMATED NEUTROPHIL # 4.2 TH/MM3 (1.8-7.7); BASOPHIL % 0.3 % (0.0-2.0); EOSINOPHIL % 0.1 % (0.0-4.0); HEMATOCRIT 35.4 % (35.0-46.0); HEMO FLAGS DIFF FINAL; LYMPH % 18.9 % (9.0-44.0); LYMPHOCYTE # 1.1 TH/MM3 (1.0-4.8); MEAN CELL VOLUME 96.1 FL (80.0-100.0); MEAN CORPUSCULAR HEMOGLOBIN 32.7 PG (27.0-34.0); MONO % 8.5 % (0.0-8.0); NEUT % 72.2 % (16.0-70.0); PLATELET COUNT 100 TH/MM3 (150-450); RED BLOOD COUNT 3.68 MIL/MM3 (4.00-5.30); RED CELL DISTRIBUTION WIDTH 14.4 % (11.6-17.2); WHITE BLOOD COUNT 5.8 TH/MM3 (4.0-11.0)
[2017-01-12 06:58] LABS: ALKALINE PHOSPHATASE 91 U/L (45-117); ALT (GPT) 53 U/L (10-53); CREATINE KINASE 212 U/L (26-192); TOTAL BILIRUBIN ADULT 0.2 MG/DL (0.2-1.0)
[2017-01-12] MEDS: INSULIN NovoLIN REGULAR SUPPLEMENTAL SCALE SQ SCH ×4 (07:00→20:22)
[2017-01-12 07:01] LABS: BLOOD UREA NITROGEN 8 MG/DL (7-18)
[2017-01-12 07:34] LABS: CKMB 4.6 NG/ML (0.5-3.6)
[2017-01-12] MEDS: ASPIRIN EC 81 MG TABEC PO SCH (08:34)
[2017-01-12] MEDS: METOPROLOL TARTRATE 25 MG TAB PO SCH ×2 (08:34→20:23)
[2017-01-12] MEDS: DOCUSATE SODIUM 50 MG/SENNA 8.6 MG TAB PO SCH ×2 (08:34→20:23)
[2017-01-12] MEDS: PHENYTOIN SODIUM 100 MG CAP PO SCH ×2 (08:34→20:23)
[2017-01-12] MEDS: levETIRAcetam 500 MG TAB PO SCH ×3 (08:34→16:49)
[2017-01-12] MEDS: TOPIRAMATE 100 MG TAB PO SCH ×2 (08:34→20:23)
[2017-01-12] MEDS: BUDESONIDE-FORMOTEROL 160/4.5 MCG INHALER INH SCH ×2 (08:35→20:27)
[2017-01-12] MEDS: SODIUM CHLORIDE 0.9% FLUSH 10 ML FLUSH SCH ×2 (08:36→20:24)
[2017-01-12] MEDS: FOLIC ACID 1 MG TAB PO SCH (08:39)
[2017-01-12] MEDS: SODIUM CHLOR 0.9% 1000 ML INJ 1,000 ML IV SCH ×2 (08:40→21:17)
[2017-01-12] MEDS ORDERED: LACOSAMIDE 100 MG TAB PO SCH (09:00)
[2017-01-12] MEDS ORDERED: DOCUSATE SODIUM 100 MG CAP PO SCH (09:00)
[2017-01-12] MEDS ORDERED: MISCELLANEOUS NURSING INFORMATION ONE (09:00)
[2017-01-12] MEDS ORDERED: ALBUTEROL SULFATE 90 MCG/ACT HFA 18 GM INHALER INH SCH (09:00)
[2017-01-12] MEDS ORDERED: CITALOPRAM HYDROBROMIDE 40 MG TAB PO SCH (09:00)
--- NOTE | 2017-01-12 09:51 | OTSOAPIP ---
TIME SESSION COMPLETED: 948 TREATMENT TIME: 0 MINS. CHART REVIEWED. INTERDISCIPLINARY COMMUNICATION: PATIENT FOUND IN ROOM WITH MULTIPLE DISCIPLINES, SPOKE TO NURSE "ATIF" WHO REQUESTED TO HOLD TREATMENT TODAY DUE TO PATIENT SCHEDULED FOR MULTIPLE PROCEDURE. PLAN: WILL SEE PATIENT NEXT TREATMENT DAY Therapist: MARISA MARROQUIN/Dimitri Signature on file
--- NOTE | 2017-01-12 12:54 | EKG ---
Date Performed: 01/11/2017 Time Performed: 17:00:02 PTAGE: 61 years EKG: Sinus rhythm POSSIBLE LEFT ATRIAL ENLARGEMENT NONSPECIFIC ST & T-WAVE ABNORMALITY BORDERLINE ECG PREVIOUS TRACING : 12/07/2016 04.22 Since prior tracing, nonspecific changes are more prominent , consider ischemia. DOCTOR: Dustin Stallings Interpretating Date/Time 01/12/2017 12:53:45
[2017-01-12] MEDS: DIVALPROEX SODIUM E.R. 500 MG TAB PO SCH (13:44)
--- NOTE | 2017-01-12 14:09 | MB ---
cc: TWAN RAMIREZ M.D. DATE OF CONSULTATION: 01/12/2017. REASON FOR CONSULTATION: HISTORY OF PRESENT ILLNESS: The patient is a 61-year-old woman with a long history of seizures. EEG positive earlier this year on the right temporal lobe. History of right greater than left carotid disease with about 70% on the right by CTA in the past in 2014. Dilantin toxicity. She came in with a high fever and seizures. She was given some IV Depakote in the ER and is already on Dilantin 200 twice a day and Keppra 1000 three times a day and Vimpat. She actually had a lumbar puncture last night, which was negative. She came in from a intermediate. MEDICATIONS AT THE [facility]: 1. Topamax 100 twice a day. 2. Dilantin 200 twice a day. 3. Metoprolol. 4. Folic acid. 5. Colace. 6. Symbicort. 7. Vimpat 100 three times a day. 8. Spiriva. 9. Keppra 1000 three times a day. 10. Citalopram 40 a day. 11. Atorvastatin. 12. Aspirin. PAST MEDICAL HISTORY: 1. Hypertension. 2. Schizophrenia. 3. Seizure disorder. 4. Remote alcohol abuse. 5. Tobacco use. 6. History of cocaine abuse remotely. REVIEW OF SYSTEMS: She really does not remember much about her past medical history. PHYSICAL EXAMINATION: VITAL SIGNS: Initial temperature was 102.4, now 99. 79. 108/55. NECK: There are no carotid bruits. HEART: Regular rhythm. I do not detect a murmur. NEUROLOGICAL EXAMINATION: Pupils are equal. Visual kuo are full. Extraocular movements intact without nystagmus. Face is symmetric. She moves all of her extremities well. Toes are downgoing bilaterally. She is awake and alert. Speech is fluent. She is not aphasic. No seizures noted this morning by the team. CURRENT MEDICATIONS: 1. Lipitor. 2. Aspirin 81. 3. Folate. 4. Vimpat 100 three times a day, which I have increased to 200 twice a day. 5. Keppra 1000 three times a day. 6. Metoprolol. 7. Dilantin 200 twice a day. 8. Topamax 100 twice a day. 9. Some Lovenox. 10. She got Depakote 500 milligrams IV last night. 11. She was given some Vancomycin and ceftazidime which has been stopped. The Depakote was supposed to be 500 twice a day, although I do not see that currently here. LABORATORY DATA: CBC is normal. Platelet count this morning was 100,000 but was 178,000 last night. RPR has been negative. Dilantin level 10.6. It looks like she has maybe been on Depakote back in 2014 and had a subtherapeutic level. She had also been on phenobarbital in the past. Urinalysis was negative yesterday. Basic metabolic profile was essentially normal. Lactic acid was 5.2. Liver function tests were normal. CPK was 200. Albumin was 2.6 meaning that free dilantin has been higher than 10. TSH normal. Lipase has been normal in the past. B12 normal in 2014. Coags normal last night. Blood gas yesterday was normal. CSF was clear. Normal protein. No white cells. IMAGING STUDIES: CT scan shows no acute abnormality. She had an MRI back in 2014 that was normal for any acute problems. She has ventricular enlargement that is fairly prominent bilaterally without any focal abnormalities. MRI of the brain was done in August of 2016, which showed again the large ventricles. She had large ventricles also in 2014. I would say the ventricles look very similar to the way they did in 2012 and maybe just a little bit larger, but if so, not by very much. IMPRESSION Breakthrough seizures. Will try and see how she does on Depakote; check a level. She could go out of the ICU later today if there are no more seizures. We will check her EEG. Check a sedimentation rate and LEWIS on her. I have increased her Vimpat to 200 twice a day. I will be following her with you in the hospital. But, she may be able to be discharged tomorrow if no more seizures. Also will recheck a carotid ultrasound on her with the history of carotid disease. MD DOLORES Lind/CHRISSIE /9:57 AM /1:48 PM
--- NOTE | 2017-01-12 14:25 | PD.TRANSFR ---
Transfer Summary Admission Date Jan 11, 2017 at 20:23 Transfer Date: Jan 12, 2017 Admitting Diagnosis lactic acidosis, altered mental status, seizure, fever Diagnoses: (1) Seizure disorder Diagnosis: Principal (2) SIRS (systemic inflammatory response syndrome) Diagnosis: Principal (3) HTN (hypertension) Diagnosis: Principal (4) Schizophrenia Diagnosis: Principal Significant Findings None. Negative CT head Transfer Summary/Subjective Please see below Objective Vital Signs Date Time Temp Pulse Resp B/P Pulse Ox O2 Delivery O2 Flow Rate FiO2 01/12/17 13:00 71 16 127/69 100 01/12/17 12:00 98.3 01/12/17 08:35 21 01/12/17 00:08 Nasal Cannula 2 Result Diagram: 01/12/17 0528 01/12/17 0528 Other Results Microbiology Date/Time Procedure Status Source Growth 01/11/17 19:28 Influenza Types A,B Antigen (BROCK) - Final Complete Nasal Washing NEGATIVE FOR FLU A AND B ANTIGEN.... Laboratory Tests Test 01/11/17 19:05 Blood Gas Puncture Site RT FEMORAL Blood Gas Patient Temperature 98.6 Blood Gas HCO3 22 mmol/L (22-26) Blood Gas Base Excess -2.6 mmol/L (-2-2) Blood Gas Oxygen Saturation 89 % (90-100) Arterial Blood pH 7.34 (7.380-7.420) Arterial Blood Partial 43 mmHg (38-42) Pressure CO2 Arterial Blood Partial 62 mmHG Pressure O2 (61-120) Arterial Blood Oxygen Content 15.4 Vol % (12.0-20.0) Arterial Blood 1.1 % (0-4) Carboxyhemoglobin Arterial Blood Methemoglobin 0.6 % (0-2) Blood Gas Hemoglobin 12.3 G/DL (12.0-16.0) Oxygen Delivery Device NASAL CANNULA Blood Gas Liter Flow 2 L/M Imaging Last 72 hours Impressions Chest X-Ray 01/11/17 1657 Signed Impressions: Service Date/Time: Wednesday, January 11, 2017 17:17 - CONCLUSION: No acute cardiopulmonary disease. Juliet Monreal MD Head CT 01/11/17 0000 Signed Impressions: Service Date/Time: Wednesday, January 11, 2017 20:11 - CONCLUSION: No acute intracranial abnormality. Ernesto Parham MD Objective Remarks GENERAL: 61-year-old female, critically ill currently resting in bed in no acute distress SKIN: Warm and dry. No rash HEAD: Atraumatic. Normocephalic. EYES: Pupils equal and round. No scleral icterus. No injection or drainage. ENT: No nasal bleeding or discharge. Mucous membranes pink and moist. NECK: Trachea midline. No JVD. CARDIOVASCULAR: Regular rate and rhythm. S1, S2. No S4. Without murmur RESPIRATORY: Clear to auscultation. Breath sounds equal bilaterally. GASTROINTESTINAL: Abdomen soft, non-tender, nondistended. I Stone bowel sounds are appreciated MUSCULOSKELETAL: Extremities without difficulty and peripheral edema. No obvious deformities. NEUROLOGICAL: Awake and alert. No obvious cranial nerve deficits. Patient with underlying right upper and lower extremity weakness with strength 4-5. Normal sensation to light touch and pinprick. Cerebellar/gait not assessed A/P Assessment and Plan Neuro/Psych: Seizure disorder NOS History status epilepticus History as TIA with residual right-sided weakness TMJ History of EtOH abuse quit 5 years ago History of crack cocaine use Schizoaffective disorder CT head 01/11 revealed no acute intracranial findings Status post lumbar puncture - glucose 71. MBS 107. Protein 28. No white cells. Gram stain negative. Resume home medications Vimpat 100 mg 3 times a day, Keppra 1000 g 3 times a day , Topamax 100 mg twice a day and Dilantin 200 mg twice a day. Dilantin level 10.6. Keppra levels pending Neurology consultation Seizure precautions Will hold Celexa with underlying seizure disorder Received 10 mg Decadron in ED. CV: History of hypertension Dyslipidemia Lactic acidosis secondary to seizures resolving History myocardial infarction Continue metoprolol 25 mg by mouth twice a day/home medication for hypertension Continue aspirin 81 mg daily Continue atorvastatin 80 mg by mouth daily for dyslipidemia Currently normal saline at 84 cc an hour. Last lactate 2.2. Status post 3 liters normal saline in ED. Resp: History COPD Ongoing tobaccoism On Symbicort 160/4.5 2+ twice a day and Spiriva 18 g 1 capsule inhalation daily at home. On duo nebs every 6 hours and albuterol every 2 hours when necessary dyspnea Nasal cannula to maintain saturations greater than equal to 92% Incentive spirometry while awake Chest x-ray on admission revealed no acute cardiopulmonary findings Tobacco cessation information booklet provided GI: History of gastroesophageal reflux disease History of IBS Advance diet as tolerated heart healthy Protonix for GI prophylaxis Radha-Colace for bowel regimen : Hinds catheter if indicated for accurate I's and O's in a critically ill patient Endo: History of hypothyroidism Check TSH Sliding-scale insulin if indicated to maintain euglycemia Renal: Creatinine currently within normal limits Monitor urine output Accurate I's and O's Heme: CBC within normal limits Follow-up CBC in AM. ID: Status post LP in ED which was essentially negative Monitor for infection Receive 1 dose of vancomycin and Ceftaz in ED. FEN: Replace electrolytes as clinically indicated MSK: Osteoarthritis PT evaluate and treat Access - Utilize peripheral IV. Central line if indicated Prophylaxis - GI - Protonix - DVT - SCD/on Lovenox per Dr. Gabriel Level II Luis Carty MD Jan 12, 2017 14:25
--- NOTE | 2017-01-12 20:09 | MG ---
cc: CCList Lab No: [id number] Date: 01/12/17 Age: Sex: F Race: History of seizures, fever. A 7 Hz 60 microvolt symmetric posterior rhythm is seen. I see some mild theta slowing over the right posterotemporal head region and I see an electroencephalographic seizure with some phase reversing over the left frontal head region, starting at epoch 48 and running for 50 seconds composed of one per second high amplitude spikes. Photic stimulation performed without significant posterior driving. IMPRESSION She has a left frontotemporal seizure focus on the transverse montage, looked more to be left temporal and frontal, although there is certainly a field in the frontal head region and in the posterior temporal parietal region. MD DOLORES Lind/ /7:44 PM /8:04 PM
[2017-01-12] MEDS: LACOSAMIDE 100 MG TAB PO SCH (20:23)
[2017-01-12] MEDS: ATORVASTATIN 80 MG TAB PO SCH (20:23)
[2017-01-13] VITALS (7 sets, daily range): BP systolic 115–151; BP diastolic 59–73; PULSE 20–71; RESP 17–20; TEMP 97.4–98.7; O2SAT 98–100
[2017-01-13] MEDS: RESP: ALBUTEROL 2.5 MG/IPRATROPIUM 0.5 MG NEB (SCH) INH ×4 (03:20→21:23)
[2017-01-13] MEDS: CHLORHEXIDINE GLUCONATE 2 % 1 PACK (2 CLOTHS) TOP SCH (04:00)
[2017-01-13] MEDS: INSULIN NovoLIN REGULAR SUPPLEMENTAL SCALE SQ SCH ×4 (05:30→20:26)
[2017-01-13 07:04] LABS: BASOPHIL % 0.9 % (0.0-2.0); EOSINOPHIL # 0.1 TH/MM3 (0-0.4); EOSINOPHIL % 1.6 % (0.0-4.0); HEMATOCRIT 35.5 % (35.0-46.0); HEMO FLAGS DIFF FINAL; LYMPH % 24.1 % (9.0-44.0); LYMPHOCYTE # 1.2 TH/MM3 (1.0-4.8); MEAN CORPUSCULAR HEMOGLOBIN 31.3 PG (27.0-34.0); MEAN CORPUSCULAR HGB CONC 32.9 % (32.0-36.0); MONO % 12.7 % (0.0-8.0); NEUT % 60.7 % (16.0-70.0); PLATELET COUNT 141 TH/MM3 (150-450); RED BLOOD COUNT 3.73 MIL/MM3 (4.00-5.30); RED CELL DISTRIBUTION WIDTH 14.7 % (11.6-17.2); WHITE BLOOD COUNT 4.9 TH/MM3 (4.0-11.0)
[2017-01-13 07:31] LABS: ALT (GPT) 38 U/L (10-53); ANION GAP 6 MEQ/L (5-15); AST (GOT) 20 U/L (15-37); BICARBONATE 26.2 MEQ/L (21.0-32.0); BLOOD UREA NITROGEN 7 MG/DL (7-18); CHLORIDE 111 MEQ/L (98-107); GLOMERULAR FILTRATION RATE 103 ML/MIN (>89); MAGNESIUM 1.9 MG/DL (1.5-2.5); POTASSIUM 4.4 MEQ/L (3.5-5.1); SODIUM (NA) 143 MEQ/L (136-145)
[2017-01-13 07:34] LABS: ALKALINE PHOSPHATASE 85 U/L (45-117); CREATINE KINASE 152 U/L (26-192); TOTAL BILIRUBIN ADULT 0.2 MG/DL (0.2-1.0)
[2017-01-13] MEDS: METOPROLOL TARTRATE 25 MG TAB PO SCH ×2 (08:05→20:26)
[2017-01-13] MEDS: FOLIC ACID 1 MG TAB PO SCH (08:05)
[2017-01-13] MEDS: ASPIRIN EC 81 MG TABEC PO SCH (08:05)
[2017-01-13] MEDS: DIVALPROEX SODIUM E.R. 500 MG TAB PO SCH ×2 (08:05→20:25)
[2017-01-13] MEDS: DOCUSATE SODIUM 50 MG/SENNA 8.6 MG TAB PO SCH ×2 (08:05→20:26)
[2017-01-13] MEDS: levETIRAcetam 500 MG TAB PO SCH ×3 (08:06→18:24)
[2017-01-13] MEDS: PHENYTOIN SODIUM 100 MG CAP PO SCH ×2 (08:19→20:25)
[2017-01-13] MEDS: SODIUM CHLORIDE 0.9% FLUSH 10 ML FLUSH SCH ×2 (09:00→20:24)
[2017-01-13] MEDS: SODIUM CHLOR 0.9% 1000 ML INJ 1,000 ML IV SCH (09:12)
[2017-01-13] MEDS: LACOSAMIDE 100 MG TAB PO SCH ×2 (09:21→20:26)
[2017-01-13] MEDS: TOPIRAMATE 100 MG TAB PO SCH ×2 (09:21→20:26)
--- NOTE | 2017-01-13 09:31 | RADRPT ---
EXAM DATE/TIME: 01/13/2017 08:30 [place] COMPARISON: US CAROTID ARTERIES, September 08, 2014, 16:23. INDICATIONS : History of stenosis. MEDICAL HISTORY : Hypertension. Seizures. Chronic obstructive pulmonary disease. Hearing loss. Anticoagulant therapy, A spirin. IBS. Incontinence. Schizoaffective disorder. Bipolar disorder. Depression. Anxiety. Measles. Blood transfusion. SURGICAL HISTORY : Tubal ligation. Right carotid artery stent. ENCOUNTER: Subsequent ACUITY: > 1 year PAIN SCORE: 0/10 LOCATION: Bilateral neck PEAK SYSTOLIC VELOCITIES (cm/sec): ICA/CCA RATIO: Right: 1.3 Left: 2.1 ICA: Right: 81 Left: 213 CCA: Right: 62 Left: 103 ECA: Right: 101 Left: 175 VERTEBRAL: Right: 73 antegrade Left: 33 antegrade Elevated flow velocities and ICA/CCA ratios have been found to correlate with increased degrees of vessel stenosis, calculated as percentage of diameter relative to a normal segment of distal ICA/CCA FINDINGS: RIGHT CAROTID: Carotid stent is noted in place. Stent appears widely patent. Normal-appearing waveforms and flow are identified through the stent. ICA/CCA ratio is within normal limits. LEFT CAROTID: Eccentric plaque with calcification is identified in the common and proximal internal carotid arterie s. Spectral broadening with elevated velocity is identified in the proximal internal carotid artery. ICA/CCA ratio suggest the presence of a moderate stenosis in the 50-60% range. VERTEBRAL ARTERIES: Antegrade flow is seen in both vertebral arteries. MISCELLANEOUS: None. CONCLUSION: 1. Widely patent right carotid stent without significant stenosis. 2. Mild to moderate eccentric plaque in the left carotid system with evidence of moderate stenosis in the proximal ICA in the 50-60% range. 3. Antegrade flow in both vertebral arteries. Ata Wray MD on January 13, 2017 at 9:21 Board Certified Radiologist. This report was verified electronically.
--- NOTE | 2017-01-13 11:35 | HHI.PR ---
Objective Vital Signs Date Time Temp Pulse Resp B/P Pulse Ox O2 Delivery O2 Flow Rate FiO2 01/13/17 08:28 97.4 70 20 151/73 100 01/13/17 05:08 69 01/13/17 04:15 98.2 64 18 115/60 99 01/13/17 01:00 98.7 65 17 119/59 98 01/12/17 23:00 74 01/12/17 23:00 74 19 107/53 98 01/12/17 22:00 78 14 104/52 98 01/12/17 21:00 84 16 90/55 97 01/12/17 20:00 98.1 75 21 127/67 100 01/12/17 19:00 98.3 76 22 124/59 100 01/12/17 18:00 68 13 145/68 100 01/12/17 17:00 85 20 143/67 100 01/12/17 16:00 98.0 73 22 123/65 98 01/12/17 15:47 100 21 01/12/17 15:00 69 01/12/17 15:00 69 18 126/65 99 01/12/17 14:00 66 14 131/65 100 01/12/17 13:00 71 16 127/69 100 01/12/17 12:00 98.3 72 15 119/59 99 I/O 01/12/17 01/12/17 01/12/17 01/13/17 01/13/17 01/13/17 07:00 15:00 23:00 07:00 15:00 23:00 Intake Total 428 ml 748 ml 703 ml 588 ml Output Total 1000 ml 500 ml Balance 428 ml -252 ml 203 ml 588 ml Intake Oral 120 ml 240 ml 0 ml IV Total 428 ml 628 ml 463 ml 588 ml Output Urine Total 1000 ml 500 ml # Voids 2 3 1 0 1 # Bowel Movements 0 1 Result Diagram: 01/13/17 0646 01/13/17 0646 Objective Remarks awake aler no new co denies any sz Assessment and Plan Assessment and Plan imp doing well ok to dc on vpa 500 bid and check level saturday if dced eeg shows left frontal sz focus with a sz seen there during eeg us r open stent and left 50-60 ok continue statin and asa Rui Houston MD Jan 13, 2017 11:35
--- NOTE | 2017-01-13 11:47 | HHI.PR ---
Subjective Remarks Follow-up on patient with breakthrough seizure. Patient seen and examined today. Patient reports chronic neck pain as well as TMJ pain. She denies any headache or dizziness. Patient denies any chest pain or shortness of breath. Denies any nausea, vomiting or abdominal pain. Good appetite. Objective Vitals Vital Signs Date Time Temp Pulse Resp B/P Pulse Ox O2 Delivery O2 Flow Rate FiO2 01/13/17 08:28 97.4 70 20 151/73 100 01/13/17 05:08 69 01/13/17 04:15 98.2 64 18 115/60 99 01/13/17 01:00 98.7 65 17 119/59 98 01/12/17 23:00 74 01/12/17 23:00 74 19 107/53 98 01/12/17 22:00 78 14 104/52 98 01/12/17 21:00 84 16 90/55 97 01/12/17 20:00 98.1 75 21 127/67 100 01/12/17 19:00 98.3 76 22 124/59 100 01/12/17 18:00 68 13 145/68 100 01/12/17 17:00 85 20 143/67 100 01/12/17 16:00 98.0 73 22 123/65 98 01/12/17 15:47 100 21 01/12/17 15:00 69 01/12/17 15:00 69 18 126/65 99 01/12/17 14:00 66 14 131/65 100 01/12/17 13:00 71 16 127/69 100 01/12/17 12:00 98.3 72 15 119/59 99 I/O 01/12/17 01/12/17 01/12/17 01/13/17 01/13/17 01/13/17 07:00 15:00 23:00 07:00 15:00 23:00 Intake Total 428 ml 748 ml 703 ml 588 ml Output Total 1000 ml 500 ml Balance 428 ml -252 ml 203 ml 588 ml Intake Oral 120 ml 240 ml 0 ml IV Total 428 ml 628 ml 463 ml 588 ml Output Urine Total 1000 ml 500 ml # Voids 2 3 1 0 1 # Bowel Movements 0 1 Result Diagram: 01/13/17 0646 01/13/17 0646 Imaging Last Impressions Carotid Artery Ultrasound 01/13/17 0000 Signed Impressions: Service Date/Time: Friday, January 13, 2017 08:30 - CONCLUSION: 1. Widely patent right carotid stent without significant stenosis. 2. Mild to moderate eccentric plaque in the left carotid system with evidence of moderate stenosis in the proximal ICA in the 50-60%% range. 3. Antegrade flow in both vertebral arteries. Ata Wray MD Chest X-Ray 01/11/17 1657 Signed Impressions: Service Date/Time: Wednesday, January 11, 2017 17:17 - CONCLUSION: No acute cardiopulmonary disease. Juliet Monreal MD Head CT 01/11/17 0000 Signed Impressions: Service Date/Time: Wednesday, January 11, 2017 20:11 - CONCLUSION: No acute intracranial abnormality. Ernesto Parham MD Objective Remarks GENERAL: Well-nourished, well-developed patient in NAD. Sitting up in hospital bed. Awake and alert. Eating breakfast. SKIN: Warm and dry. No rash. HEENT: Normocephalic. Atraumatic. EOMI. MMM. CARDIOVASCULAR: Regular rate and rhythm. S1, S2 noted. No murmur appreciated. RESPIRATORY: No accessory muscle use. Clear to auscultation. Breath sounds equal bilaterally. GASTROINTESTINAL: Abdomen soft, non-tender, nondistended. Normoactive bowel sounds x4. MUSCULOSKELETAL: No obvious deformities. Extremities without clubbing, cyanosis , or edema. NEUROLOGICAL: Awake and alert. Able to move all extremities. Normal speech. Medications and IVs Current Medications Medications (Trade) Dose Ordered Sig/Elizabet Route Start Time Stop Time Status Last Admin (Ecotrin Ec) 81 mg DAILY PO 01/12/17 09:00 01/13/17 08:05 (Lipitor) 80 mg HS PO 01/12/17 21:00 01/12/17 20:23 (Symbicort 160-4.5 Inh) 2 puff BID INH 01/12/17 09:00 01/12/17 20:27 (Folate) 1 mg DAILY PO 01/12/17 09:00 01/13/17 08:05 (Keppra) 1,000 mg TID PO 01/12/17 09:00 01/13/17 08:06 (Lopressor) 25 mg BID PO 01/12/17 09:00 01/13/17 08:05 (Dilantin) 200 mg BID PO 01/12/17 09:00 01/13/17 08:19 Topiramate 100 mg 100 mg BID PO 01/12/17 09:00 01/13/17 09:21 (NS 1000 ml Inj) 1,000 ml @ 84 mls/hr [id number] IV 01/11/17 21:27 01/13/17 09:12 (NS Flush) 2 ml UNSCH PRN .XX 01/11/17 21:30 (NS Flush) 2 ml BID .XX 01/12/17 09:00 01/12/17 20:24 (Tylenol) 650 mg Q6H PRN PO 01/11/17 21:30 (Versed Inj) 2 mg Q1H PRN IV 01/11/17 21:30 (Lovenox Inj) 30 mg Q24H SQ 01/11/17 22:00 01/12/17 20:23 Miscellaneous Information 1 Q361D XX 01/11/17 21:30 (Chlorhexidine 2% Cloth) 3 pack Taper DAILY@04 TOP 01/12/17 04:00 01/08/18 03:59 01/12/17 04:00 (Chlorhexidine 2% Cloth) 3 pack UNSCH PRN TOP 01/11/17 21:30 (Radha-Colace) 1 tab BID PO 01/12/17 09:00 01/13/17 08:05 (Milk Of Magnesia Liq) 30 ml Q12H PRN PO 01/11/17 21:30 (Senokot) 17.2 mg Q12H PRN PO 01/11/17 21:30 (Dulcolax Supp) 10 mg DAILY PRN RECTAL 01/11/17 21:30 (Lactulose Liq) 30 ml DAILY PRN PO 01/11/17 21:30 (D50w (Vial) Inj) 50 ml UNSCH PRN IV 01/12/17 05:15 (Glucagon Inj) 1 mg UNSCH PRN OTHER 01/12/17 05:15 (Vimpat) 200 mg BID PO 01/12/17 21:00 01/13/17 09:21 (Depakote Er) 500 mg BID PO 01/13/17 21:00 A/P Problem List: (1) Seizure disorder ICD Code: G40.909 Status: Chronic (2) SIRS (systemic inflammatory response syndrome) ICD Code: R65.10 Status: Acute (3) HTN (hypertension) ICD Code: I10 Status: Chronic (4) Schizophrenia ICD Code: F20.9 Status: Acute Assessment and Plan This is 61-year-old female with a history of status epilepticus admitted with high fever and seizures. History of status epilepticus with breakthrough seizures History of TIA with residual right-sided weakness TMJ History of crack cocaine use History of alcohol abuse but quit 5 years ago Schizoaffective disorder - CT head 01/11 revealed no acute intracranial findings - Status post lumbar puncture which was essentially negative. - Neurology following - ESR and LEWIS ordered - EEG showed left frontotemporal seizure - Patient currently on Vimpat 200 mg twice a day(dose increased by Neurology) , Depakote 500 mg daily(started on by Neuro), Keppra 1000mg 3 times a day, Topamax 100mg BID, Dilantin 200mg BID and Topamax 100mg BID - Keppra level pending - Depakote level low - dose increased to BID by Neuro - Phenytoin level low - continue seizure precautions - Celexa on hold due to underlying seizure disorder Hypertension Dyslipidemia History of myocardial infarction Carotid artery disease - Continue on metoprolol 25 mg by mouth twice a day - Continue aspirin 81mg daily - Continue atorvastatin 80 mg by mouth daily - Carotid ultrasound shows patent right carotid stent and left moderate stenosis in the proximal ICA 50-60%. 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 Lactic acidosis secondary to seizures - Resolved History of COPD Tobaccoism ongoing - CXR on admission showed no acute cardiopulmonary findings - Continue on Symbicort 160/4.5ng BID - Continue on Spiriva - Supplemental oxygen to maintain saturations greater than 92% - Encourage use of IS - Duonebs prn - Smoking cessation/counseling GERD History of IBS - Protonix for GI prophylaxis - bowel regimen with PeriColace DVT prophylaxis - Patient is on Lovenox 30mg q24hr Discussed with patient, nursing staff and Dr. Silva Attending Statement Attestation Patient seen and examined with Romy Baugh PA-C. The exam, history, and the medical decision-making described in the above note were completed with the assistance of the dictating practitioner. I attest that I had a [id number] encounter with the patient on the same day, and personally performed all of the history, exam, or medical decision making. Discussed case with her thoroughly after seeing the patient, reviewed and agreed with the plan. Please see addendum in History, Physical examination. See below for any errata/additional input: No seizure episodes overnight, no overnight events. Patient agreed to getting discharged to SNF. Physical therapy, patient would need rehabilitation. No headache, nausea, vomiting. Next Not in distress Regular rate and rhythm Clear breath sounds Moves extremities, alert, awake, oriented to self and person but cannot remember the date. Allergy, okay for discharge, give phenytoin at same dose, increase valproic acid , check valproic acid levels and Saturday. Per physical therapy, needs rehabilitation. Discussed with case management, discharge to rehabilitation when placement is ready. Romy Baugh Jan 13, 2017 11:47 Jones Silva MD Jan 13, 2017 15:53
--- NOTE | 2017-01-13 13:35 | HHI.DS ---
Discharge Summary Admission Date Jan 11, 2017 at 20:23 Discharge Date: Jan 13, 2017 Admitting Diagnosis lactic acidosis, altered mental status, seizure, fever (1) Seizure disorder ICD Code: G40.909 Diagnosis: Principal (2) SIRS (systemic inflammatory response syndrome) ICD Code: R65.10 Diagnosis: Principal (3) HTN (hypertension) ICD Code: I10 Diagnosis: Principal (4) Schizophrenia ICD Code: F20.9 Diagnosis: Principal Procedures None Brief History - From Admission Per neurology consult: The patient is a 61-year-old woman with a long history of seizures. EEG positive earlier this year on the right temporal lobe. History of right greater than left carotid disease with about 70% on the right by CTA in the past in 2014. Dilantin toxicity. She came in with a high fever and seizures. She was given some IV Depakote in the ER and is already on Dilantin 200 twice a day and Keppra 1000 three times a day and Vimpat. CBC/BMP: 01/13/17 0646 01/13/17 0646 Significant Findings Laboratory Tests Test 01/11/17 01/11/17 01/11/17 01/11/17 17:00 17:05 17:11 19:00 Urine Protein 30 mg/dL (NEG-TRACE) Urine Occult Blood TRACE (NEG) Neutrophils (%) (Auto) 85.6 % (16.0-70.0) Lymphocytes (%) (Auto) 6.6 % (9.0-44.0) Neutrophils # (Auto) 7.8 TH/MM3 (1.8-7.7) Lymphocytes # (Auto) 0.6 TH/MM3 (1.0-4.8) Estimat Glomerular Filtration 59 ML/MIN (>89) Rate Random Glucose 107 MG/DL (74-106) Calcium Level 8.2 MG/DL (8.5-10.1) Lactic Acid Level 5.0 mmol/L (0.4-2.0) CSF RBC (Tube 2) 9 /MM3 (NONE) Test 01/11/17 01/11/17 01/12/17 01/12/17 19:05 19:54 05:28 11:22 Blood Gas Base Excess -2.6 mmol/L (-2-2) Blood Gas Oxygen Saturation 89 % (90-100) Arterial Blood pH 7.34 (7.380-7.420) Arterial Blood Partial 43 mmHg (38-42) Pressure CO2 Lactic Acid Level 2.2 mmol/L 5.2 mmol/L 4.0 mmol/L (0.4-2.0) (0.4-2.0) (0.4-2.0) Red Blood Count 3.68 MIL/MM3 (4.00-5.30) Platelet Count 100 TH/MM3 (150-450) Neutrophils (%) (Auto) 72.2 % (16.0-70.0) Monocytes (%) (Auto) 8.5 % (0.0-8.0) Chloride Level 110 MEQ/L (98-107) Carbon Dioxide Level 19.2 MEQ/L (21.0-32.0) Estimat Glomerular Filtration 82 ML/MIN (>89) Rate Calcium Level 7.6 MG/DL (8.5-10.1) Total Creatine Kinase 212 U/L (26-192) Creatine Kinase MB 4.6 NG/ML (0.5-3.6) Total Protein 5.5 GM/DL (6.4-8.2) Albumin 2.6 GM/DL (3.4-5.0) Phenytoin (Dilantin) Level 9.6 MCG/ML (10.0-20.0) Valproic Acid (Depakene) Level 10 MCG/ML (50-100) Test 01/13/17 06:46 Red Blood Count 3.73 MIL/MM3 (4.00-5.30) Platelet Count 141 TH/MM3 (150-450) Monocytes (%) (Auto) 12.7 % (0.0-8.0) Chloride Level 111 MEQ/L (98-107) Calcium Level 8.1 MG/DL (8.5-10.1) Phosphorus Level 2.4 MG/DL (2.5-4.9) Total Protein 5.6 GM/DL (6.4-8.2) Albumin 2.7 GM/DL (3.4-5.0) Phenytoin (Dilantin) Level 8.4 MCG/ML (10.0-20.0) Valproic Acid (Depakene) Level 13 MCG/ML (50-100) PE at Discharge GENERAL: Well-nourished, well-developed patient in NAD. Sitting up in hospital bed. Awake and alert. Eating breakfast. SKIN: Warm and dry. No rash. HEENT: Normocephalic. Atraumatic. EOMI. MMM. CARDIOVASCULAR: Regular rate and rhythm. S1, S2 noted. No murmur appreciated. RESPIRATORY: No accessory muscle use. Clear to auscultation. Breath sounds equal bilaterally. GASTROINTESTINAL: Abdomen soft, non-tender, nondistended. Normoactive bowel sounds x4. MUSCULOSKELETAL: No obvious deformities. Extremities without clubbing, cyanosis , or edema. NEUROLOGICAL: Awake and alert. Able to move all extremities. Normal speech. Transfer Summary Please see below Pt update on day of discharge No overnight events, no seizures. Wants to get discharge. Awake alert and oriented. Hospital Course This is 61-year-old female with a history of status epilepticus admitted with high fever and seizures. Upon ED evaluation, CT scan of the head revealed no acute intracranial findings. Because of fever and seizures, patient had a lumbar puncture, CSF studies were unremarkable. CSF culture remained negative. Neurology was consulted. EEG showed left frontotemporal seizure. Patient was placed on Vimpat, Depakote, and kept on previous dosage of Keppra, Topamax and Dilantin. Lactic acidosis was thought to be secondary to seizures. Carotid ultrasound was done which showed patent right carotid stent and left moderate stenosis at 50-60%. She will follow-up with cardiology for this. She'll continue metoprolol, aspirin and statin. Patient needs a valproic acid level II days post discharge. She'll be discharged back to rehabilitation. Pt Condition on Discharge: Good Discharge Disposition: Discharge to SNF Discharge Time: > 30 minutes Discharge Instructions DIET: Follow Instructions for: Heart Healthy Diet Speech Therapy-Diet Recommends: Mechanical Soft, Chopped Meat w/Gravy Activities you can perform: Regular-No Restrictions Follow up Referrals: SNF/[facility]/ - 2-3 Days New Medications: Divalproex ER (Depakote ER) 500 Mg Liberty 500 MG PO BID seizures #60 TAB Lacosamide (Vimpat) 100 Mg Tab 200 MG PO BID Seizures #60 TAB Continued Medications: Albuterol 18 GM Inh (Ventolin Hfa 18 GM Inh) 90 Mcg/Act Aer 2 PUFF INH QID SHORTNESS OF BREATH #1 Ref [address] (Aspirin EC) 81 Mg Tabdr 81 MG PO DAILY Ref 0 TAB Atorvastatin (Atorvastatin) 80 Mg Tab 80 MG PO HS Cholesterol Management #30 Ref 0 TAB Budesonide-Formoterol Inh (Symbicort Inh) 160-4.5 Mcg/Act Aero 2 PUFF INH BID #1 Ref 0 INHALER Citalopram (Citalopram) 40 Mg Tab 40 MG PO DAILY Control Depression #30 Ref 0 TAB Docusate Sodium (Colace) 100 Mg Capsule 100 MG PO DAILY Folic Acid (Folic Acid) 1 Mg Tablet 1 MG PO DAILY Levetiracetam (Levetiracetam) 1,000 Mg Tab 1000 MG PO TID Control Seizures #90 Ref 0 TAB Metoprolol Tartrate (Metoprolol Tartrate) 25 Mg Tab 25 MG PO BID HTN #60 Ref 0 TAB Phenytoin Extended (Dilantin) 100 Mg Cap 200 MG PO BID Control Seizures #90 Ref 0 CAP Tiotropium Inh (Spiriva Handihaler) 18 Mcg Cap 1 CAP INH DAILY DO NOT SWALLOW CAPS COPD #30 Ref 0 CAP Topiramate (Topamax) 100 Mg Tab 100 MG PO BID Seizure Control #60 TAB Discontinued Medications: Lacosamide (Vimpat) 100 Mg Tab 100 MG PO TID Control Seizures #60 Ref 0 TAB Jones Silva MD Jan 13, 2017 13:34
[2017-01-13] MEDS ORDERED: DEPA500T3 PO (13:59)
[2017-01-13] MEDS ORDERED: LACO100 PO (13:59)
[2017-01-13] MEDS: NICOTINE 21 MG/24 HR PATCH T-DERMAL SCH (18:24)
[2017-01-13] MEDS: BUDESONIDE-FORMOTEROL 160/4.5 MCG INHALER INH SCH (20:23)
[2017-01-13] MEDS: ENOXAPARIN SODIUM 30 MG/0.3 ML SYRINGE SQ SCH (20:24)
[2017-01-13] MEDS: ATORVASTATIN 80 MG TAB PO SCH (20:24)
[2017-01-14] VITALS (8 sets, daily range): BP systolic 110–123; BP diastolic 56–80; PULSE 66–75; RESP 12–19; TEMP 97.8–98.9; O2SAT 96–100
[2017-01-14] MEDS: CHLORHEXIDINE GLUCONATE 2 % 1 PACK (2 CLOTHS) TOP SCH (03:12)
[2017-01-14] MEDS: RESP: ALBUTEROL 2.5 MG/IPRATROPIUM 0.5 MG NEB (SCH) INH ×2 (03:56→07:50)
[2017-01-14] MEDS: INSULIN NovoLIN REGULAR SUPPLEMENTAL SCALE SQ SCH ×2 (05:28→11:00)
--- NOTE | 2017-01-14 07:59 | HHI.PR ---
Objective Vital Signs Date Time Temp Pulse Resp B/P Pulse Ox O2 Delivery O2 Flow Rate FiO2 01/14/17 05:15 97.8 66 17 115/80 99 01/14/17 03:58 98 21 01/14/17 01:14 75 01/14/17 00:35 98.8 68 19 110/64 98 01/14/17 00:00 98.1 68 18 116/59 100 01/13/17 21:01 97.9 67 20 125/59 98 01/13/17 16:52 97.8 20 20 140/71 98 01/13/17 13:10 97.5 71 20 144/73 100 01/13/17 08:28 97.4 70 20 151/73 100 I/O 01/13/17 01/13/17 01/13/17 01/14/17 01/14/17 01/14/17 06:59 14:59 22:59 06:59 14:59 22:59 Intake Total 588 ml 1140 ml Output Total 2 ml Balance 588 ml 1138 ml Intake Oral 0 ml 1140 ml IV Total 588 ml Output Urine Total 2 ml # Voids 0 1 2 2 # Bowel Movements 0 1 0 Result Diagram: 01/13/17 0646 01/13/17 0646 Objective Remarks awake alert no new co denies any sz again Assessment and Plan Assessment and Plan imp doing well ok to dc on vpa 500 bid and check level saturday if dced eeg shows left frontal sz focus with a sz seen there during eeg us r open stent and left 50-60 ok continue statin and asa level pend today looks good Rui Houston MD Jan 14, 2017 07:59
[2017-01-14] MEDS: BUDESONIDE-FORMOTEROL 160/4.5 MCG INHALER INH SCH (09:00)
[2017-01-14] MEDS ORDERED: REMOVE OLD PATCH T-DERMAL SCH (09:00)
[2017-01-14] MEDS: SODIUM CHLORIDE 0.9% FLUSH 10 ML FLUSH SCH (09:00)
[2017-01-14] MEDS: LACOSAMIDE 100 MG TAB PO SCH (11:21)
[2017-01-14] MEDS: NICOTINE 21 MG/24 HR PATCH T-DERMAL SCH (11:25)
[2017-01-14] MEDS: DIVALPROEX SODIUM E.R. 500 MG TAB PO SCH (11:25)
[2017-01-14] MEDS: ASPIRIN EC 81 MG TABEC PO SCH (11:25)
[2017-01-14] MEDS: FOLIC ACID 1 MG TAB PO SCH (11:25)
[2017-01-14] MEDS: PHENYTOIN SODIUM 100 MG CAP PO SCH (11:26)
[2017-01-14] MEDS: TOPIRAMATE 100 MG TAB PO SCH (11:27)
[2017-01-14] MEDS: METOPROLOL TARTRATE 25 MG TAB PO SCH (11:27)
[2017-01-14] MEDS: levETIRAcetam 500 MG TAB PO SCH ×2 (11:27→15:06)
[2017-01-14] MEDS: DOCUSATE SODIUM 50 MG/SENNA 8.6 MG TAB PO SCH (11:27)
--- NOTE | 2017-01-14 14:57 | HHI.PR ---
Subjective Remarks Follow-up for seizure disorder No seizure activity noted. Patient has no complaints. She stated that she feels tired but better. Denies any nausea/ vomiting or pain. Objective Vitals Vital Signs Date Time Temp Pulse Resp B/P Pulse Ox O2 Delivery O2 Flow Rate FiO2 01/14/17 13:08 69 01/14/17 11:30 97.8 72 12 119/56 97 01/14/17 07:45 98.9 72 12 123/57 96 01/14/17 05:15 97.8 66 17 115/80 99 01/14/17 03:58 98 21 01/14/17 01:14 75 01/14/17 00:35 98.8 68 19 110/64 98 01/14/17 00:00 98.1 68 18 116/59 100 01/13/17 21:01 97.9 67 20 125/59 98 01/13/17 16:52 97.8 20 20 140/71 98 I/O 01/13/17 01/13/17 01/13/17 01/14/17 01/14/17 01/14/17 07:00 15:00 23:00 07:00 15:00 23:00 Intake Total 588 ml 240 ml 900 ml Output Total 2 ml Balance 588 ml 238 ml 900 ml Intake Oral 0 ml 240 ml 900 ml IV Total 588 ml Output Urine Total 2 ml # Voids 0 1 2 2 # Bowel Movements 0 1 0 Result Diagram: 01/13/1746 01/13/17 0646 Objective Remarks GENERAL: Well-nourished, well-developed patient in [facility]. SKIN: Warm and dry. No rash. HEENT: Normocephalic. Atraumatic. CARDIOVASCULAR: Regular rate and rhythm. S1, S2 noted. No murmur appreciated. RESPIRATORY: No accessory muscle use. Clear to auscultation. Breath sounds equal bilaterally. GASTROINTESTINAL: Abdomen soft, non-tender, nondistended. MUSCULOSKELETAL: No obvious deformities. Extremities without clubbing, cyanosis , or edema. NEUROLOGICAL: Awake and alert. Able to move all extremities. Normal speech. Procedures None Medications and IVs Current Medications Acetaminophen 650 mg 650 mg ONCE ONCE RECTAL Last administered on 01/11/17t 17 :52; Start 01/11/17 at 17:00; Stop 01/11/17 at 17:01; Status DC Sodium Chloride 1,000 ml @ 1,000 mls/hr Q1H ONCE IV Last administered on 17:51; Start 01/11/17 at 16:57; Stop 01/11/17 at 17:56; Status DC Sodium Chloride 1,000 ml @ 1,000 mls/hr Q1H ONCE IV Last administered on 18:14; Start 01/11/17 at 16:57; Stop 01/11/17 at 17:56; Status DC Sodium Chloride (NS 1000 ml Inj) 100 ml @ 1,000 mls/hr Q6M ONCE IV Last administered on 01/11/17 19:47; Start 01/11/17 at 16:57; Stop 01/11/17 at 17:02 ; Status DC Albuterol/ Ipratropium (Duoneb Neb) 1 ampule Q15M INH Last administered on 01/11 19:26; Start 01/11/17 at 19:15; Stop 01/11/17 at 19:46; Status DC Lorazepam (Ativan Inj) 2 mg ONCE ONCE IV PUSH ; Start 01/11/17 at 19:45; Stop 01/11/17 at 19:46; Status DC Dexamethasone Sodium Phosphate 10 mg 10 mg ONCE STAT IV PUSH Last administered on 01/11/17 20:41; Start 01/11/17 at 19:51; Stop 01/11/17 at 19:54 ; Status DC Ceftazidime 2000 mg/Sodium Chloride 100 ml @ 200 mls/hr ONCE STAT IV Last administered on 01/11/17 20:41; Start 01/11/17 at 19:51; Stop 01/11/17 at 20:20 ; Status DC Vancomycin HCl 1000 mg/Sodium Chloride 250 ml @ 250 mls/hr ONCE STAT IV Last administered on 01/11/17 21:54; Start 01/11/17 at 19:51; Stop 01/11/17 at 20:50 ; Status DC Valproate Sodium/ Sodium Chloride (Depacon Inj/NS Inj) 105 ml @ 105 mls/hr ONCE ONCE IV Last administered on 01/11/17 20:42; Start 01/11/17 at 20:15; Stop 01/11/17 at 21:14; Status DC Albuterol Sulfate (Ventolin Hfa Inh) 2 puff QID INH ; Start 01/12/17 at 09:00; Stop 01/12/17 at 09:00; Status DC Aspirin (Ecotrin Ec) 81 mg DAILY PO Last administered on 01/14/17 11:25; Start 01/12/17 at 09:00 Atorvastatin Calcium (Lipitor) 80 mg HS PO Last administered on 01/13/17 20:24 ; Start 01/12/17 at 21:00 Budesonide/ Formoterol Fumarate (Symbicort 160-4.5 Inh) 2 puff BID INH Last administered on 01/14/17 09:00; Start 01/12/17 at 09:00 Citalopram Hydrobromide (CeleXA) 40 mg DAILY PO ; Start 01/12/17 at 09:00; Stop 01/12/17 at 09:00; Status DC Docusate Sodium (Colace) 100 mg DAILY PO ; Start 01/12/17 at 09:00; Stop at 09:00; Status DC Folic Acid (Folate) 1 mg DAILY PO Last administered on 01/14/17 11:25; Start 01/12/17 at 09:00 Lacosamide (Vimpat) 100 mg TID PO Last administered on 01/12/17 09:32; Start 01/12/17 at 09:00; Stop 01/12/17 at 09:57; Status DC Levetriacetam (Keppra) 1,000 mg TID PO Last administered on 01/14/17 11:27; Start 01/12/17 at 09:00 Metoprolol Tartrate (Lopressor) 25 mg BID PO Last administered on 01/14/17 11: 27; Start 01/12/17 at 09:00 Phenytoin (Dilantin) 200 mg BID PO Last administered on 01/14/17 11:26; Start 01/12/17 at 09:00 Topiramate 100 mg 100 mg BID PO Last administered on 01/14/17 11:27; Start at 09:00 Sodium Chloride (NS 1000 ml Inj) 1,000 ml @ 84 mls/hr [id number] IV Last administered on 01/13/17 09:12; Start 01/11/17 at 21:27; Stop 01/13/17 at 11:45 ; Status DC Sodium Chloride (NS Flush) 2 ml UNSCH PRN .XX FLUSH AFTER USING IV ACCESS; Start 01/11/17 at 21:30 Sodium Chloride (NS Flush) 2 ml BID .XX Last administered on 01/14/17 09:00; Start 01/12/17 at 09:00 Acetaminophen (Tylenol) 650 mg Q6H PRN PO PAIN 1-10 AND/OR FEVER >101F; Start 01/11/17 at 21:30 Midazolam HCl (Versed Inj) 2 mg Q1H PRN IV SEDATION; Start 01/11/17 at 21:30 Albuterol/ Ipratropium (Duoneb Neb) 1 ampule Q6HR NEB INH Last administered on 01/14/17 07:50; Start 01/11/17 at 22:00 Albuterol/ Ipratropium (Duoneb Neb) 1 ampule Q2HR NEB PRN INH WHEEZING; Start 01/11/17 at 21:30; Stop 01/12/17 at 05:09; Status DC Enoxaparin Sodium (Lovenox Inj) 30 mg Q24H SQ Last administered on 01/13/17 20 :24; Start 01/11/17 at 22:00 Miscellaneous Information 1 Q361D XX ; Start 01/11/17 at 21:30 Chlorhexidine Gluconate (Chlorhexidine 2% Cloth) 3 pack Taper DAILY@04 TOP Last administered on 01/12/17 04:00; Start 01/12/17 at 04:00; Stop 01/08/18 at 03:59 Chlorhexidine Gluconate (Chlorhexidine 2% Cloth) 3 pack UNSCH PRN TOP HYGIENIC CARE; Start 01/11/17 at 21:30 Senna/Docusate Sodium (Radha-Colace) 1 tab BID PO Last administered on 11:27; Start 01/12/17 at 09:00 Magnesium Hydroxide (Milk Of Magnesia Liq) 30 ml Q12H PRN PO MILD - MODERATE CONSTIPATION; Start 01/11/17 at 21:30 Sennosides (Senokot) 17.2 mg Q12H PRN PO MODERATE - SEVERE CONSTIPATION; Start 01/11/17 at 21:30 Bisacodyl (Dulcolax Supp) 10 mg DAILY PRN RECTAL SEVERE CONSTIPATION; Start at 21:30 Lactulose (Lactulose Liq) 30 ml DAILY PRN PO SEVERE CONSITIPATION; Start at 21:30 Miscellaneous Information "OUT OF STOCK OF INFLUE... ONCE ONCE .XX ; Start at 09:00; Stop 01/12/17 at 09:01; Status DC Albuterol Sulfate (Albuterol Neb) 2.5 mg Q2HR NEB PRN NEB DYSPNEA; Start at 05:15 Dextrose (D50w (Vial) Inj) 50 ml UNSCH PRN IV HYPOGLYCEMIA-SEE COMMENTS; Start 01/12/17 at 05:15 Glucagon (Glucagon Inj) 1 mg UNSCH PRN OTHER HYPOGLYCEMIA-SEE COMMENTS; Start 01/12/17 at 05:15 Insulin Human Regular (NovoLIN R SUPPLEMENTAL SCALE) 1 ACHS SLIDING SCALE SQ Last administered on 01/13/17 11:00; Start 01/12/17 at 07:00 Lacosamide (Vimpat) 200 mg BID PO Last administered on 01/14/17 11:21; Start 01/12/17 at 21:00 Divalproex Sodium (Depakote Er) 500 mg DAILY PO Last administered on 01/13/17 08:05; Start 01/12/17 at 10:00; Stop 01/13/17 at 11:18; Status DC Divalproex Sodium (Depakote Er) 500 mg BID PO Last administered on 01/14/17 11 :25; Start 01/13/17 at 21:00 Nicotine (Habitrol 21 Mg Patch.24 Hr) 1 patch DAILY T-DERMAL Last administered on 01/14/17 11:25; Start 01/13/17 at 17:34 Miscellaneous Information 1 DAILY T-DERMAL Last administered on 01/14/17 09:00 ; Start 01/14/17 at 09:00 A/P Problem List: (1) Seizure disorder ICD Code: G40.909 Status: Chronic (2) SIRS (systemic inflammatory response syndrome) ICD Code: R65.10 Status: Acute (3) HTN (hypertension) ICD Code: I10 Status: Chronic (4) Schizophrenia ICD Code: F20.9 Status: Acute Assessment and Plan This is 61-year-old female with a history of status epilepticus admitted with high fever and seizures. Seizure disorder History of status epilepticus with breakthrough seizures History of TIA with residual right-sided weakness TMJ History of crack cocaine use History of alcohol abuse but quit 5 years ago Schizoaffective disorder - CT head 01/11 revealed no acute intracranial findings - Status post lumbar puncture which was essentially negative. - Neurology following - ESR and LEWIS ordered - EEG showed left frontotemporal seizure - Patient currently on Vimpat 200 mg twice a day(dose increased by Neurology) , Depakote 500 mg BID(started on by Neuro), Keppra 1000mg 3 times a day, Topamax 100mg BID, Dilantin 200mg BID and Topamax 100mg BID - Recheck levels tomorrow. - continue seizure precautions - Celexa on hold due to underlying seizure disorder Hypertension Dyslipidemia History of myocardial infarction Carotid artery disease - Continue on metoprolol 25 mg by mouth twice a day - Continue aspirin 81mg daily - Continue atorvastatin 80 mg by mouth daily - Carotid ultrasound shows patent right carotid stent and left moderate stenosis in the proximal ICA 50-60%. 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 Lactic acidosis secondary to seizures - Resolved History of COPD Tobaccoism ongoing - CXR on admission showed no acute cardiopulmonary findings - Continue on Symbicort 160/4.5ng BID - Continue on Spiriva - Supplemental oxygen to maintain saturations greater than 92% - Encourage use of IS - Duonebs prn - Smoking cessation/counseling GERD History of IBS - Protonix for GI prophylaxis - bowel regimen with PeriColace DVT prophylaxis - Patient is on Lovenox 30mg q24hr Discharge Planning Patient medically stable for discharge. Dealt with case management regards to SNF placement. Sana Hankins MD Jan 14, 2017 14:57
[2017-01-15 08:16] LABS: HSV 1,PCR Negative (Negative)
== END 2017-01-14 16:17 | DRG 101 ==
LOC: NEPC 16:24 → NEDH 20:23 → HIME 01-12 00:10 → N05B 01-13 01:23
PROVIDERS: ADMIT Family Medicine; ATTEND Family Medicine
PROC: 009U3ZX Drainage of Spinal Canal, Percutaneous Approach, Diagnostic (ICD-10-PCS; principal; 2017-01-11)
DX: G40.409 Other generalized epilepsy and epileptic syndromes, not intractable, without status epilepticus (principal); E87.2 Acidosis; R65.10 Systemic inflammatory response syndrome (SIRS) of non-infectious origin without acute organ dysfunction; K58.9 Irritable bowel syndrome, unspecified; I10 Essential (primary) hypertension; R32 Unspecified urinary incontinence; F25.9 Schizoaffective disorder, unspecified; F17.210 Nicotine dependence, cigarettes, uncomplicated; J44.9 Chronic obstructive pulmonary disease, unspecified; E78.5 Hyperlipidemia, unspecified; K21.9 Gastro-esophageal reflux disease without esophagitis; E03.9 Hypothyroidism, unspecified; M19.90 Unspecified osteoarthritis, unspecified site; I25.2 Old myocardial infarction; Z79.82 Long term (current) use of aspirin
CPT/HCPCS: 36600; 62270; 70450; 71010; 76937; 80053; 80164; 80177; 80185; 81001; 82140; 82550; 82552; 82805; 82945; 82948; 83605; 83735; 84100; 84157; 84443; 85025; 86403; 87040; 87070; 87205; 87529; 87641; 87804; 89051; 93005; 93880; 94640; 94664; 95819; J0713; J1100; J1650; J3370; J7030; J7050; P9612

== ENCOUNTER 2017-04-30 14:52 | Inpatient (IN) | payer MEDICARE, OTHER ==
[~2017-04-30] VITALS: Ht 170.2 cm; Wt 70.4 kg
[~2017-04-30 14:52] MED LIST changes: -ASPI81TA11 PO; +ASPI81TA23 PO; -ATOR1TAB18 PO; +ATOR80TA45 PO; -COLA100C PO; +COLA100C5 PO; +DEPA500T3 PO; +METO25TA3 PO; -METO50TA PO; -MICO2CRE43 VAGINAL; -NITR100C4 PO; -TOPA100T11 PO; +TOPI100 PO
[2017-04-30 15:12] VITALS: BP 134/71; PULSE 61; RESP 18; TEMP 97.8; O2SAT 100
[2017-04-30 15:18] VITALS: BP 134/71; PULSE 57; RESP 18; TEMP 97.8; O2SAT 97
[2017-04-30] MEDS ORDERED: LORazepam 2 MG/ML VIAL IM ONE (15:30)
--- NOTE | 2017-04-30 15:36 | PD ---
HPI Chief Complaint: Fall Time Seen by Provider: 15:24 Travel History International Travel<30 days: No Contact w/Intl Traveler<30days: No Traveled to known affect area: No History of Present Illness HPI 61-year-old female complains of headache. Patient fell a local fdc today. Patient told the staff that she was not feeling well and got up and walk to the bathroom and fell. snf staff reported positive loss of consciousness for unknown amount of time. Patient has repetitive speech upon regaining consciousness. EMS was called. Patient was brought to the ED for evaluation. Patient is awake and not voicing or answering any questions. Patient is aphasic. Unknown baseline level of mental status. snf staff reported patient usually talking and ambulating. Patient has history hypertension, seizure, schizoaffective disorder, IBS, urinary incontinence, anxiety, bipolar disorder, arthritis, status post CVA. PFSH Past Medical History Hx Anticoagulant Therapy: Yes (325MG ASA DAILY) Arthritis: Yes Asthma: No Autoimmune Disease: No Blood Disorders: No Bipolar Disorder: Yes Anxiety: Yes Depression: Yes Heart Rhythm Problems: No Cancer: No Cardiovascular Problems: Yes (hyper tension) High Cholesterol: No Chemotherapy: No Chest Pain: Yes (gets chest pain) Congestive Heart Failure: No COPD: No Cerebrovascular Accident: Yes Diabetes: No Diminished Hearing: Yes Endocrine: No Gastrointestinal Disorders: Yes (IBS) Genetic Disorder: Yes (IBS) GERD: No Glaucoma: No Genitourinary: Yes (incontinent of urine) Headaches: Yes (once a week) Hepatitis: No Hiatal Hernia: No Hypertension: Yes Immune Disorder: No Implanted Vascular Access Dvce: No Kidney Stones: No Musculoskeletal: Yes (has seizures then becomes weak and falls) Neurologic: Yes (seizure disorder) Psychiatric: Yes (psych history) Reproductive: Yes (tubes tied) Respiratory: No Immunizations Current: No Migraines: No Myocardial Infarction: No Radiation Therapy: No Renal Failure: No Schizophrenia: Yes (SCHIZOAFFECTIVE) Seizures: Yes Sickle Cell Disease: No Sleep Apnea: No Thyroid Disease: No Ulcer: No PNEUMOCCOCAL Vaccine (Year): 2 Menopausal: Yes : 0 Tubal Ligation: Yes Past Surgical History Abdominal Surgery: No AICD: No Appendectomy: No Arteriovenous Shunt: No Cardiac Surgery: No Cholecystectomy: No Ear Surgery: Yes (BILATERAL EAR) Endocrine Surgery: No Eye Surgery: No Genitourinary Surgery: No Gynecologic Surgery: Yes (tubal ligation) Hysterectomy: No Insulin Pump: No Joint Replacement: No Neurologic Surgery: No Oral Surgery: Yes (Jaw/ TMJ) Pacemaker: No Thoracic Surgery: No Other Surgery: Yes (hx tubes tied. ) Social History Alcohol Use: No Tobacco Use: No Substance Use: No Allergies-Medications (Allergen,Severity, Reaction): Coded Allergies: aripiprazole (Unverified Allergy, Unknown, 02/12/17) Reported Meds & Prescriptions Reported Meds & Active Scripts Active Vimpat (Lacosamide) 100 Mg Tab 200 Mg PO BID Topamax (Topiramate) 100 Mg Tab 100 Mg PO BID Reported Namenda (Memantine) 10 Mg Tab 10 Mg PO BID Depakote DR (Divalproex Sodium) 250 Mg Tabdr 750 Mg PO Q12HR Folic Acid 0.4 Mg Tab 800 Mcg PO DAILY Dilantin (Phenytoin Extended) 100 Mg Cap 300 Mg PO Q12HR Metoprolol Tartrate 25 Mg Tab 25 Mg PO BID Colace (Docusate Sodium) 100 Mg Capsule 100 Mg PO DAILY Symbicort Inh (Budesonide/Formoterol Fumarate) 160-4.5 Mcg/Act Aero 2 Puff INH BID Ventolin Hfa 18 GM Inh (Albuterol Sulfate) 90 Mcg/Act Aer 2 Puff INH QID Spiriva Handihaler (Tiotropium Inh) 18 Mcg Cap 18 Mcg INH DAILY DO NOT SWALLOW CAPS Levetiracetam 1,000 Mg Tab 1,000 Mg PO TID Citalopram (Citalopram Hydrobromide) 40 Mg Tab 40 Mg PO DAILY Atorvastatin (Atorvastatin Calcium) 80 Mg Tab 80 Mg PO HS Aspirin EC (Aspirin) 81 Mg Tabdr 81 Mg PO DAILY Review of Systems General / Constitutional: No: Fever Eyes: No: Visual changes HENT: No: Headaches Cardiovascular: No: Chest Pain or Discomfort Respiratory: No: Shortness of Breath Gastrointestinal: No: Abdominal Pain Genitourinary: No: Dysuria Musculoskeletal: No: Pain Skin: No Rash Neurologic: No: Weakness Psychiatric: No: Depression Endocrine: No: Polydipsia Hematologic/Lymphatic: No: Easy Bruising Physical Exam Narrative GENERAL: Well-nourished, well-developed patient. SKIN: Focused skin assessment warm/dry. HEAD: Normocephalic. Large area of soft tissue swelling right temporoparietal area of the scalp. EYES: No scleral icterus. No injection or drainage. Pupils 2 mm equal reactive. NECK: Supple, trachea midline. No JVD or lymphadenopathy. No tenderness on palpation. CARDIOVASCULAR: Regular rate and rhythm without murmurs, gallops, or rubs. RESPIRATORY: Breath sounds equal bilaterally. No accessory muscle use. GASTROINTESTINAL: Abdomen soft, non-tender, nondistended. MUSCULOSKELETAL: No cyanosis, or edema. BACK: Nontender without obvious deformity. No CVA tenderness. Neurologic exam: Patient's awake. Patient's aphasic Patient moves of the extremity minimally. No obvious focal neurological deficit. Data Data Last Documented VS Vital Signs Date Time Temp Pulse Resp B/P (MAP) Pulse Ox O2 Delivery O2 Flow Rate FiO2 04/30/17 15:49 59 18 100 Room Air 04/30/17 15:18 97.8 Orders Orders Lorazepam Inj (Ativan Inj) (04/30/17 15:30) Complete Blood Count With Diff (04/30/17 15:25) Basic Metabolic Panel (Bmp) (04/30/17 15:25) Prothrombin Time / Inr (Pt) (04/30/17 15:25) Act Partial Throm Time (Ptt) (04/30/17 15:25) Urinalysis - C+S If Indicated (04/30/17 15:25) Chest, Single Ap (04/30/17 15:25) Ct Brain W/O Iv Contrast(Rout) (04/30/17 15:25) Pelvis, Ap Only (Routine) (04/30/17 15:25) Iv Access Insert/Monitor (04/30/17 15:25) Ecg Monitoring (04/30/17 15:25) Oximetry (04/30/17 15:25) Ct Cerv Spine W/O Contrast (04/30/17 15:25) Vascular Access Team Consult/P PRN (04/30/17 16:08) Vascular Poc Ultrasound (04/30/17 ) Urine Culture (04/30/17 16:40) Admit Order (Ed Use Only) (04/30/17 17:49) Consult Neurosurgery (04/30/17 ) Labs Laboratory Tests Test 04/30/17 16:40 White Blood Count 10.8 TH/MM3 Red Blood Count 4.87 MIL/MM3 Hemoglobin 15.2 GM/DL Hematocrit 45.6 % Mean Corpuscular Volume 93.6 FL Mean Corpuscular Hemoglobin 31.3 PG Mean Corpuscular Hemoglobin Concent 33.4 % Red Cell Distribution Width 13.9 % Platelet Count 157 TH/MM3 Mean Platelet Volume 8.9 FL Neutrophils (%) (Auto) 77.1 % Lymphocytes (%) (Auto) 13.6 % Monocytes (%) (Auto) 8.0 % Eosinophils (%) (Auto) 0.9 % Basophils (%) (Auto) 0.4 % Neutrophils # (Auto) 8.3 TH/MM3 Lymphocytes # (Auto) 1.5 TH/MM3 Monocytes # (Auto) 0.9 TH/MM3 Eosinophils # (Auto) 0.1 TH/MM3 Basophils # (Auto) 0.0 TH/MM3 CBC Comment DIFF FINAL Differential Comment Prothrombin Time 11.8 SEC Prothromb Time International Ratio 1.1 RATIO Activated Partial Thromboplast Time 23.7 SEC Urine Color YELLOW Urine Turbidity HAZY Urine pH 6.0 Urine Specific Rippey 1.023 Urine Protein TRACE mg/dL Urine Glucose (UA) NEG mg/dL Urine Ketones NEG mg/dL Urine Occult Blood SMALL Urine Nitrite POS Urine Bilirubin NEG Urine Urobilinogen LESS THAN 2.0 MG/DL Urine Leukocyte Esterase LARGE Urine RBC 18 /hpf Urine WBC /hpf Urine Transitional Epithelial Cells <1 /hpf Urine Bacteria FEW /hpf Urine Hyaline Casts 1 /lpf Microscopic Urinalysis Comment CULTURE INDICATED Blood Urea Nitrogen 23 MG/DL Creatinine 0.87 MG/DL Random Glucose 99 MG/DL Calcium Level 8.3 MG/DL Sodium Level 141 MEQ/L Potassium Level 4.4 MEQ/L Chloride Level 108 MEQ/L Carbon Dioxide Level 26.8 MEQ/L Anion Gap 6 MEQ/L Estimat Glomerular Filtration Rate 66 ML/MIN [facility] Medical Decision Making Medical Screen Exam Complete: Yes Emergency Medical Condition: Yes Interpretation(s) Last Impressions Pelvis X-Ray 04/30/17 1525 Signed Impressions: Service Date/Time: Sunday, April 30, 2017 15:51 - CONCLUSION: The bony pelvic ring is grossly intact. David Bhandari MD Head CT 04/30/17 1525 Signed Impressions: Service Date/Time: Sunday, April 30, 2017 17:11 - CONCLUSION: Contrecoup injury with large right scalp hematoma, left subdural hematoma, multifocal left parietal parenchymal hemorrhages, right occipital intraventricular blood, and 7 mm midline shift towards the right. No skull fracture seen.. David Bhandari MD Chest X-Ray 04/30/17 1525 Signed Impressions: Service Date/Time: Sunday, April 30, 2017 15:47 - CONCLUSION: The lungs are clear. David Bhandari MD CBC within normal limit. BUN 23. GFR 66. UA positive for WBCs RBC and bacteria. Differential Diagnosis Differential diagnosis including scalp contusion, hematoma, skull fracture, intracranial hemorrhage. Narrative Course 61-year-old female with head injury. Status post fall. Dr. Sahu, neurosurgeon , came to see the patient. Patient will be admitted to night order selector with consultation to Dr. Sahu. Diagnosis Primary Impression: Subdural hematoma Additional Impression: Subarachnoid hemorrhage Admitting Information Admitting Physician Requests: Admit Mahendra Marti MD Apr 30, 2017 15:36
[2017-04-30 15:49] VITALS: PULSE 59; RESP 18; O2SAT 100
--- NOTE | 2017-04-30 16:08 | RADRPT ---
EXAM DATE/TIME: 04/30/2017 15:47 [facility] COMPARISON: CHEST SINGLE AP, January 11, 2017, 17:17. INDICATIONS : Short of breath, fall MEDICAL HISTORY : Cardiovascular disease. Hypertension seizures SURGICAL HISTORY : unobtainable ENCOUNTER: Initial ACUITY: 1 day PAIN SCORE: Non-responsive. LOCATION: Bilateral chest FINDINGS: A single view of the chest demonstrates the lungs to be symmetrically aerated without evidence of mas s, infiltrate or effusion. No evidence of pneumothorax. The cardiomediastinal contours are unremark able. Old fracture left lateral 6th rib. CONCLUSION: The lungs are clear. David Bhandari MD on April 30, 2017 at 16:06 Board Certified Radiologist. This report was verified electronically.
[2017-04-30] MEDS ORDERED: DEPA250T2 PO (16:09)
[2017-04-30] MEDS ORDERED: NAME10TA PO (16:09)
[2017-04-30] MEDS ORDERED: FOLI400T PO (16:09)
--- NOTE | 2017-04-30 17:08 | RADRPT ---
EXAM DATE/TIME: 04/30/2017 15:51 [facility] COMPARISON: No previous studies available for comparison. INDICATIONS : Fall, evaluate pelvis for fracture MEDICAL HISTORY : Cardiovascular disease. Hypertension seizure SURGICAL HISTORY : unobtainable ENCOUNTER: Initial ACUITY: 1 day PAIN SCORE: Non-responsive. LOCATION: Bilateral pelvis FINDINGS: A single frontal view of the pelvis demonstrates no evidence of fracture. The bony pelvic ring is in tact. Bony mineralization is normal. The soft tissues are intact. Bilateral adnexal clips. CONCLUSION: The bony pelvic ring is grossly intact. David Bhandari MD on April 30, 2017 at 17:06 Board Certified Radiologist. This report was verified electronically.
[2017-04-30 17:21] LABS: AUTOMATED NEUTROPHIL # 8.3 TH/MM3 (1.8-7.7); BASOPHIL % 0.4 % (0.0-2.0); EOSINOPHIL # 0.1 TH/MM3 (0-0.4); EOSINOPHIL % 0.9 % (0.0-4.0); HEMATOCRIT 45.6 % (35.0-46.0); HEMO FLAGS DIFF FINAL; LYMPH % 13.6 % (9.0-44.0); LYMPHOCYTE # 1.5 TH/MM3 (1.0-4.8); MEAN CELL VOLUME 93.6 FL (80.0-100.0); MEAN CORPUSCULAR HEMOGLOBIN 31.3 PG (27.0-34.0); MEAN CORPUSCULAR HGB CONC 33.4 % (32.0-36.0); NEUT % 77.1 % (16.0-70.0); PLATELET COUNT 157 TH/MM3 (150-450); RED BLOOD COUNT 4.87 MIL/MM3 (4.00-5.30); RED CELL DISTRIBUTION WIDTH 13.9 % (11.6-17.2); WHITE BLOOD COUNT 10.8 TH/MM3 (4.0-11.0)
[2017-04-30 17:28] LABS: APTT (PATIENT) 23.7 SEC (24.3-30.1); INTERNATIONAL NORMALIZED RATIO 1.1 RATIO; PROTHROMBIN TIME - PATIENT 11.8 SEC (9.8-11.6)
[2017-04-30 17:29] LABS: BACTERIA, URINE FEW /hpf; BLOOD, URINE SMALL (NEG); COMMENT (UR) CULTURE INDICATED; CULTURE IF INDICATED CULTURE INDICATED; GLUCOSE,URINE NEG (NEG); HYALINE CAST, URINE 1 /lpf (RARE); KETONE, URINE NEG (NEG); NITRITE,URINE POS (NEG); TRANSITIONAL EPI CELLS, URINE <1 /hpf; URINE COLOR YELLOW (YELLW/STRAW)
--- NOTE | 2017-04-30 17:32 | RADRPT ---
EXAM DATE/TIME: 04/30/2017 17:11 [facility] COMPARISON: CT BRAIN W/O CONTRAST, January 11, 2017, 20:11. INDICATIONS : Fall today RADIATION DOSE: 33.55 CTDIvol (mGy) MEDICAL HISTORY : Cerebrovascular disease. Seizures. Chronic obstructive pulmonary disease.Hypertension SURGICAL HISTORY : Tubal ligation. ENCOUNTER: Initial ACUITY: 1 day PAIN SCALE: 7/10 LOCATION: cranial TECHNIQUE: Multiple contiguous axial images were obtained of the head. Using automated exposure control and adj ustment of the mA and/or kV according to patient size, radiation dose was kept as low as reasonably a chievable to obtain optimal diagnostic quality images. DICOM format image data is available electro nically for review and comparison. FINDINGS: CEREBRUM: Examination is abnormal demonstrating a hyperdense subdural hematoma which extends from the middle cr anial fossa to the highest convexity frontoparietal region. The parietal hematoma measures 10 mm in size and the middle cranial fossa subdural hematoma measures 12 mm in size. There is also parenchyma l hemorrhage in the lateral left parietal lobe and several smaller hemorrhages in the cortex of the t emporal parietal cortex which measure up to 2.5 cm in size. There is 7 mm midline shift towards the right. There is effacement of the sulci in the left hemisphere involving the mid and high convexity. There is mild intraventricular blood in the right occipital horn; no intraventricular blood seen on the left side. POSTERIOR FOSSA: The cerebellum and brainstem are intact. The 4th ventricle is midline. The cerebellopontine angle i s unremarkable. EXTRACRANIAL: The visualized portion of the orbits is intact. SKULL: Large right sided scalp hematoma measuring up to 1.7 cm located in the mid to high convexity right pa rietal region. The calvaria is intact. No evidence of skull fracture. CONCLUSION: Contrecoup injury with large right scalp hematoma, left subdural hematoma, multifocal left parietal p arenchymal hemorrhages, right occipital intraventricular blood, and 7 mm midline shift towards the ri ght. No skull fracture seen.. David Bhandari MD on April 30, 2017 at 17:26 Board Certified Radiologist. This report was verified electronically.
[2017-04-30 18:05] LABS: BICARBONATE 26.8 MEQ/L (21.0-32.0); POTASSIUM 4.4 MEQ/L (3.5-5.1)
--- NOTE | 2017-04-30 18:05 | RADRPT ---
EXAM DATE/TIME: 04/30/2017 17:11 [facility] COMPARISON: CT CERVICAL SPINE W/O CONTRAST, December 07, 2016, 0:26. INDICATIONS : Fall today RADIATION DOSE: 20.80 CTDIvol (mGy) MEDICAL HISTORY : Cerebrovascular disease. Seizures. Chronic obstructive pulmonary disease.Hypertension SURGICAL HISTORY : Tubal ligation. ENCOUNTER: Initial ACUITY: 1 day PAIN SCALE: 7/10 LOCATION: neck TECHNIQUE: Volumetric scanning of the cervical spine was performed. Multiplanar reconstructions in the sagittal, coronal and oblique axial planes were performed. Using automated exposure control and adjustment o f the mA and/or kV according to patient size, radiation dose was kept as low as reasonably achievable to obtain optimal diagnostic quality images. DICOM format image data is available electronically f or review and comparison. FINDINGS: Stable alignment of the cervical vertebral bodies when compared to 12/07/16. Minimal retrolisthesis at C4-5 with associated degenerative changes. No evidence of compression deformity or spondylolisthesi s. Anterior bone bridging osteophytes are present at C4-C6. The posterior elements are normal and a re without evidence of locked or perched facets. The spinous processes are intact. The atlantoaxial articulation is intact. Right carotid stent. C2-C3: No fracture seen. The neural foramina patent. C3-C4: No fracture seen. The neural foramina patent. C4-C5: No fracture seen. Mild right-sided bony neural foraminal stenosis. C5-C6: No fracture seen. The neural foramina patent. C6-C7: No fracture seen. The neural foramina patent. C7-T1: No fracture seen. The neural foramina patent. CONCLUSION: No acute findings. Stable degenerative changes. David Bhandari MD on April 30, 2017 at 17:59 Board Certified Radiologist. This report was verified electronically.
--- NOTE | 2017-04-30 18:20 | PD.CONS ---
History of Present Illness Service Neurosurgery Consult Requested By Emergency room-Dr. Marti Reason for Consult Traumatic brain injury-intracranial hemorrhage Primary Care Physician Rui Rose MD Diagnoses: History of Present Illness The patient is a 61-year-old female who resides at a local jail with history of schizoaffective disorder, seizures, status post CVA. According to report from jail, she was not feeling well this afternoon, she ambulated to the bathroom and fell. There was loss of consciousness for an unknown period of time. No seizures reported today. She reportedly had repetitive speech initially upon regaining consciousness. Discussion with nursing staff in the emergency room indicates that the patient was able to say her name intermittently upon arrival in the emergency room. She has not been following commands. Review of Systems Unable to obtain review of systems from the patient due to altered mental status Past Family Social History Allergies: Coded Allergies: aripiprazole (Unverified Allergy, Unknown, 02/12/17) Past Medical History Hypertension Anxiety/depression Schizoaffective disorder-bipolar disorder Previous CVA Seizure disorder Arthritis Past Surgical History Tubal ligation Neurosurgery Oral surgery Reported Medications Reported Meds & Active Scripts Active Vimpat (Lacosamide) 100 Mg Tab 200 Mg PO BID Topamax (Topiramate) 100 Mg Tab 100 Mg PO BID Reported Namenda (Memantine) 10 Mg Tab 10 Mg PO BID Depakote DR (Divalproex Sodium) 250 Mg Tabdr 750 Mg PO Q12HR Folic Acid 0.4 Mg Tab 800 Mcg PO DAILY Dilantin (Phenytoin Extended) 100 Mg Cap 300 Mg PO Q12HR Metoprolol Tartrate 25 Mg Tab 25 Mg PO BID Colace (Docusate Sodium) 100 Mg Capsule 100 Mg PO DAILY Symbicort Inh (Budesonide/Formoterol Fumarate) 160-4.5 Mcg/Act Aero 2 Puff INH BID Ventolin Hfa 18 GM Inh (Albuterol Sulfate) 90 Mcg/Act Aer 2 Puff INH QID Spiriva Handihaler (Tiotropium Inh) 18 Mcg Cap 18 Mcg INH DAILY DO NOT SWALLOW CAPS Levetiracetam 1,000 Mg Tab 1,000 Mg PO TID Citalopram (Citalopram Hydrobromide) 40 Mg Tab 40 Mg PO DAILY Atorvastatin (Atorvastatin Calcium) 80 Mg Tab 80 Mg PO HS Aspirin EC (Aspirin) 81 Mg Tabdr 81 Mg PO DAILY Family History Not obtainable from the patient Social History Resides at a jail No history of alcohol or cigarette use Physical Exam Vital Signs Vital Signs Date Time Temp Pulse Resp B/P (MAP) Pulse Ox O2 Delivery O2 Flow Rate FiO2 04/30/17 15:49 59 18 100 Room Air 04/30/17 15:18 59 18 100 Room Air 04/30/17 15:18 97.8 57 18 134/71 (92) 97 Room Air 04/30/17 15:12 97.8 61 18 134/71 (92) 100 Physical Exam GENERAL: This is a well-nourished, well-developed patient, no apparent distress. SKIN: No abrasions, contusion, rash noted. Skin warm and dry. HEAD: Positive moderate right parietal subgaleal hematoma, moderate edema EYES: Sclerae are clear and nonicteric ENT: No facial edema or ecchymosis. No periorbital edema. No CSF otorrhea or rhinorrhea. No palpable facial fracture or deformity. Cerumen right external auditory canal. Left tympanic membrane clear NECK: Trachea midline. No cervical spine tenderness. CARDIOVASCULAR: Regular rate and rhythm without murmurs, gallops, or rubs. RESPIRATORY: Clear to auscultation. Breath sounds equal bilaterally. No wheezes , rales, or rhonchi. GASTROINTESTINAL: Abdomen soft, non-tender, nondistended. No hepato-splenomegaly , or palpable masses. No guarding. MUSCULOSKELETAL: Extremities without cyanosis, or edema. No joint tenderness, or edema noted. No calf tenderness. Dorsalis pedis pulses 2+ bilateral NEUROLOGICAL: Mild lethargy Arouses spontaneously Nonverbal Grasps hands, not definitely to command No agitation No evidence of anxiety or depression Pupils are 3 mm reactive to 2 mm Conjugate extraocular movements Facial motor movements cannot be fully tested but appears symmetric Remainder of cranial nerves cannot be adequately tested due to decreased mental status Sensation: She responds to moderate stimulation all extremities Strength: Difficult to accurately assess since she is not following commands well. She is purposeful with her left upper extremity. She appears to have mild right hemiparesis. She will hold her left leg up. Jean-Pierre's absent bilaterally No ankle clonus Plantar responses absent bilateral Fine motor movements cannot be adequately assessed due to decreased mental status. Laboratory Laboratory Tests Test 04/30/17 16:40 White Blood Count 10.8 Red Blood Count 4.87 Hemoglobin 15.2 Hematocrit 45.6 Mean Corpuscular Volume 93.6 Mean Corpuscular Hemoglobin 31.3 Mean Corpuscular Hemoglobin Concent 33.4 Red Cell Distribution Width 13.9 Platelet Count 157 Mean Platelet Volume 8.9 Neutrophils (%) (Auto) 77.1 Lymphocytes (%) (Auto) 13.6 Monocytes (%) (Auto) 8.0 Eosinophils (%) (Auto) 0.9 Basophils (%) (Auto) 0.4 Neutrophils # (Auto) 8.3 Lymphocytes # (Auto) 1.5 Monocytes # (Auto) 0.9 Eosinophils # (Auto) 0.1 Basophils # (Auto) 0.0 CBC Comment DIFF FINAL Differential Comment Prothrombin Time 11.8 Prothromb Time International Ratio 1.1 Activated Partial Thromboplast Time 23.7 Urine Color YELLOW Urine Turbidity HAZY Urine pH 6.0 Urine Specific [place] 1.023 Urine Protein TRACE Urine Glucose (UA) NEG Urine Ketones NEG Urine Occult Blood SMALL Urine Nitrite POS Urine Bilirubin NEG Urine Urobilinogen LESS THAN 2.0 Urine Leukocyte Esterase LARGE Urine RBC 18 Urine WBC Urine Transitional Epithelial Cells <1 Urine Bacteria FEW Urine Hyaline Casts 1 Microscopic Urinalysis Comment CULTURE INDICATED Blood Urea Nitrogen 23 Creatinine 0.87 Random Glucose 99 Calcium Level 8.3 Sodium Level 141 Potassium Level 4.4 Chloride Level 108 Carbon Dioxide Level 26.8 Anion Gap 6 Estimat Glomerular Filtration Rate 66 Date/Time Source Procedure Growth Status 04/30/17 16:40 Urine Clean Catch Urine Culture Pending Received Result Diagram: 04/30/17 1640 04/30/17 1640 Imaging 04/30/17 CT scan of the head and neck images have been reviewed by the undersigned. The patient is noted to have scattered areas of contusion over the left frontotemporal region with a approximately 6-7 mm left frontotemporal subdural hematoma. There is approximately 6 mm [id number] midline shift. Small amount of blood at the occipital horn of the right lateral ventricle. No definite acute cervical spine fracture or subluxation. No significant cervical canal stenosis Pelvis X-Ray 04/30/17 152 Signed Impressions: Service Date/Time: Sunday, April 30, 2017 15:51 - CONCLUSION: The bony pelvic ring is grossly intact. David Bhandari MD Head CT 04/30/17 1525 Signed Impressions: Service Date/Time: Sunday, April 30, 2017 17:11 - CONCLUSION: Contrecoup injury with large right scalp hematoma, left subdural hematoma, multifocal left parietal parenchymal hemorrhages, right occipital intraventricular blood, and 7 mm midline shift towards the right. No skull fracture seen.. David Bhandari MD Chest X-Ray 04/30/17 1525 Signed Impressions: Service Date/Time: Sunday, April 30, 2017 15:47 - CONCLUSION: The lungs are clear. David Bhandari MD Assessment and Plan Assessment and Plan Impression: 1. Acute left subdural hematoma with left frontotemporal hemorrhagic contusions. It is questionable whether she had some initial parenchymal hemorrhage leading to her fall, according to history. 2. Hypertension 3. History of schizoaffective-bipolar disorder Recommendations: No family available and present for discussion of the patient's findings. She remains relatively awake and alert at the present time. She is at moderate risk for progression of subdural hematoma and parenchymal hemorrhages. Since she is maintaining relatively good overall level of consciousness, plan to continue observation at this point with close neurologic checks and vital signs in the surgical intensive care unit and a follow-up CT scan of the head. Hold aspirin and statin medications Continue Dilantin Depakote and Rony Diaz for seizure prophylaxis. Ulcer prophylaxis Non-chemical DVT prophylaxis Josue Sahu MD Apr 30, 2017 18:20
[2017-04-30] MEDS ORDERED: GLUCAGON 1 MG/ML VIAL OTHER PRN (18:45)
[2017-04-30] MEDS ORDERED: DEXTROSE 50% IN WATER 50 ML VIAL(D50) IV PUSH PRN (18:45)
[2017-04-30] MEDS ORDERED: CHLORHEXIDINE GLUCONATE 2 % 1 PACK (2 CLOTHS) TOP PRN (18:45)
[2017-04-30] MEDS ORDERED: RESP: ALBUTEROL 2.5 MG/IPRATROPIUM 0.5 MG NEB (PRN) INH (18:45)
[2017-04-30] MEDS ORDERED: MISCELLANEOUS NURSING INFORMATION XX SCH (18:45)
--- NOTE | 2017-04-30 19:28 | MH ---
cc: GRANT AMAYA M.D. DATE OF ADMISSION 04/30/2017 DATE OF 1955 HISTORY OF THE PRESENT ILLNESS The patient is 61-year-old female with past medical history of seizure disorder, schizophrenia, hypertension who presented to [facility] ED from a local nursing facility with complaints of headache and status post fall. Per ED records the patient was not feeling well and got up and walked to the bathroom and fell. [facility] staff reported loss of consciousness for unknown amount of time. When she woke up she had repetitive speech and EMS was called. The patient was brought into the ED for further evaluation and on arrival she was awake, however, she was not voicing or answering any questions. The patient is aphasic. In the ED she had a blood pressure 134/71. CT scan of the brain showed large right scalp hematoma, left subdural hematoma, multifocal left parietal parenchymal hemorrhages, right occipital intraventricular blood and 7 mm midline shift toward the right. Cervical spine CT was obtained and showed no evidence of any acute findings. In the ED she was given Ativan 1 mg IM x1. The patient was seen by Dr. Sahu from neurosurgery and planned to repeat CT brain in a.m. When seen the patient was on room air oxygen. Most of the history was obtained from reviewing medical records. PAST MEDICAL HISTORY Significant for: 1. Hypertension. 2. Seizure disorder. 3. Schizoaffective disorder. 4. Urinary incontinence. 5. Anxiety. 6. Arthritis. 7. Bipolar disorder. PAST SURGICAL HISTORY 1. Previous tubal ligation. 2. Previous oral surgery. SOCIAL HISTORY Nonsmoker, nondrinker. The patient is a residential resident. ALLERGIES ARIPIPRAZOLE. MEDICATIONS Reported medications include: 1. Vimpat. 1. Topamax. 2. Namenda. 3. Depakote. 4. Folic acid. 5. Dilantin. 6. Lopressor. 7. Colace. 8. Symbicort. 9. Spiriva. 10. Atorvastatin. 11. Aspirin. 12. Celexa. 13. Keppra. FAMILY HISTORY Noncontributory. REVIEW OF SYSTEMS As per history of present illness. The rest of the review of systems limited as patient is poor historian. PHYSICAL EXAMINATION GENERAL: A 61-year-old female appears lethargic. VITAL SIGNS: Temperature 97.8, pulse of 59, respiratory rate of 18, blood pressure 134/71, sats 100% on room air. HEENT: Atraumatic, normocephalic. Pupils equal, round, reactive to light and accommodation. Extraocular muscles intact. Conjunctiva pink. Nonicteric sclerae. Oral mucosa within normal. NECK: Supple. No JVD, adenopathy or thyromegaly. Trachea midline. CARDIOVASCULAR: Regular rate and rhythm. Normal S1-S2. No murmurs, rubs or gallops noted. LUNGS: Pulmonary exam bilateral equal air entry. No rales or wheezing. ABDOMEN: Soft, nontender, no distension. Positive bowel sounds. EXTREMITIES: No cyanosis, clubbing or edema. NEUROLOGIC: Lethargic. No focal sensory deficit. LABORATORY DATA Sodium 141, potassium 4.4, chloride 108, CO2 26, BUN 23, creatinine 0.87, glucose 99, calcium 8.3. WBC 10.8, hemoglobin 15.2, hematocrit 45, platelet count 157. INR 1.1, PT 11.8, PTT 23.7. Urinalysis positive for nitrite, leukocyte esterase, few bacteria. IMAGING Radiographic studies, CT brain showed left subdural hematoma, multifocal left parietal parenchymal hemorrhages, right occipital intraventricular blood and 7 mm midline shift to the right. Cervical spine CT showed no acute findings. A chest x-ray showed clear lungs. Pelvic x-ray no acute fractures. IMPRESSION 1. Acute left subdural hematoma with right occipital intraventricular blood and 7 mm midline shift toward the right. 2. Status post fall. 3. Hypertension. 4. History of seizure disorder. 5. Urinary tract infection. 6. History of schizophrenia. RECOMMENDATIONS 1. Monitor neuro status closely and avoid any sedatives. Continue with antiseizure meds. The patient is on Vimpat 200 mg b.i.d. Keppra, Depakote, Topamax and Dilantin 200 mg IV q.8h. Will check Dilantin and Depakote level. 2. The patient's for repeat CT brain in a.m. or earlier if there is any clinical deterioration. Discussed with Dr. Sahu from neurosurgery. 3. Oxygen p.r.n. to maintain sats above 92%. 4. Bronchodilators in the form of DuoNeb and continue with Symbicort and Spiriva as ordered. 5. Monitor heart rate and blood pressure closely. Maintain systolic blood pressure less than 150. 6. Continue with Lopressor 25 mg b.i.d. and Vasotec 1.25 mg IV q. 6-hour p.r.n. for systolic blood pressure greater than 150 or diastolic blood pressure greater than 90. 7. Monitor renal function Is and Os and electrolyte replacement as needed. Place on IV fluids NS at 84 ml an hour. 8. Start the patient on Rocephin 1 gram daily for UTI and follow up on urine cultures. Monitor for signs infections which include fever and WBC. 9. Keep n.p.o. for now and will consult speech therapy for evaluation. Continue with Protonix 40 mg daily. 10. Sliding scale insulin with Accu-Cheks for glycemic control if needed. 11. Monitor CBC. 12. GI prophylaxis with Protonix 40 mg daily and DVT prophylaxis with SCDs. 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 13. Case discussed with Dr. Sahu. MD WILY Sosa/GEORGINA /6:45 PM /7:06 PM
[2017-04-30 20:00] VITALS: BP 164/76; PULSE 69; RESP 18; TEMP 98.5; O2SAT 98
[2017-04-30] MEDS: INSULIN NovoLIN REGULAR SUPPLEMENTAL SCALE SQ SCH (20:00)
[2017-04-30] MEDS: ENALAPRILAT 1.25 MG/ML VIAL IV PUSH PRN (20:17)
[2017-04-30] MEDS: SODIUM CHLOR 0.9% 1000 ML INJ 1,000 ML IV SCH (20:31)
[2017-04-30] MEDS: levETIRAcetam 1000 MG INJ 100 ML IV SCH (20:31)
[2017-04-30] MEDS: ALBUTEROL SULFATE 90 MCG/ACT HFA 8 GM INHALER INH SCH (21:00)
[2017-04-30] MEDS: DIVALPROEX SODIUM DELAYED RELEASE 250 MG TAB PO SCH (21:00)
[2017-04-30] MEDS: BUDESONIDE-FORMOTEROL 160/4.5 MCG INHALER INH SCH (21:00)
[2017-04-30] MEDS: TOPIRAMATE 100 MG TAB PO SCH (21:00)
[2017-04-30] MEDS: METOPROLOL TARTRATE 25 MG TAB PO SCH (21:00)
[2017-04-30] MEDS: LACOSAMIDE 100 MG TAB PO SCH (21:00)
[2017-04-30] MEDS ORDERED: PHENYTOIN SODIUM 100 MG CAP PO SCH (21:00)
[2017-04-30] MEDS: MEMANTINE HCL 10 MG TAB PO SCH (21:00)
[2017-04-30] MEDS: cefTRIAXone INJ 1,000 MG in SODIUM CHLORIDE 0.9% INJ 100 ML IV SCH (21:00)
[2017-04-30 22:00] VITALS: PULSE 74
[2017-04-30] MEDS ORDERED: PHENYTOIN INJ 100 MG/2 ML VIAL IV SCH (22:00)
[2017-04-30] MEDS: CHLORHEXIDINE GLUCONATE 2 % 1 PACK (2 CLOTHS) TOP SCH (22:00)
[2017-04-30] MEDS: RESP: ALBUTEROL 2.5 MG/IPRATROPIUM 0.5 MG NEB (SCH) INH (22:07)
[2017-05-01] VITALS (17 sets, daily range): BP systolic 99–165; BP diastolic 50–78; PULSE 67–94; RESP 17–22; TEMP 98.1–99.8; O2SAT 96–100
[2017-05-01] MEDS: RESP: ALBUTEROL 2.5 MG/IPRATROPIUM 0.5 MG NEB (SCH) INH ×4 (03:47→19:49)
[2017-05-01] MEDS: INSULIN NovoLIN REGULAR SUPPLEMENTAL SCALE SQ SCH ×6 (04:00→20:00)
[2017-05-01 04:23] LABS: AUTOMATED NEUTROPHIL # 6.6 TH/MM3 (1.8-7.7); BASOPHIL % 0.3 % (0.0-2.0); EOSINOPHIL % 0.1 % (0.0-4.0); HEMATOCRIT 45.5 % (35.0-46.0); HEMO FLAGS DIFF FINAL; LYMPH % 11.8 % (9.0-44.0); LYMPHOCYTE # 1.1 TH/MM3 (1.0-4.8); MEAN CELL VOLUME 94.4 FL (80.0-100.0); MEAN CORPUSCULAR HEMOGLOBIN 31.2 PG (27.0-34.0); MEAN CORPUSCULAR HGB CONC 33.1 % (32.0-36.0); MONO % 16.7 % (0.0-8.0); NEUT % 71.1 % (16.0-70.0); PLATELET COUNT 163 TH/MM3 (150-450); RED BLOOD COUNT 4.82 MIL/MM3 (4.00-5.30); RED CELL DISTRIBUTION WIDTH 14.1 % (11.6-17.2); WHITE BLOOD COUNT 9.3 TH/MM3 (4.0-11.0)
[2017-05-01 04:33] LABS: ANION GAP 8 MEQ/L (5-15); AST (GOT) 28 U/L (15-37); BICARBONATE 26.8 MEQ/L (21.0-32.0); BLOOD UREA NITROGEN 20 MG/DL (7-18); CHLORIDE 108 MEQ/L (98-107); GLOMERULAR FILTRATION RATE 63 ML/MIN (>89); POTASSIUM 4.4 MEQ/L (3.5-5.1); SODIUM (NA) 143 MEQ/L (136-145)
[2017-05-01 04:37] LABS: ALKALINE PHOSPHATASE 84 U/L (45-117); ALT (GPT) 48 U/L (10-53); TOTAL BILIRUBIN ADULT 0.3 MG/DL (0.2-1.0)
--- NOTE | 2017-05-01 06:15 | RADRPT ---
EXAM DATE/TIME: 05/01/2017 06:03 [place] COMPARISON: CT BRAIN W/O CONTRAST, April 30, 2017, 17:11. INDICATIONS : Trauma, hemorrhage, follow up. RADIATION DOSE: 33.08 CTDIvol (mGy) MEDICAL HISTORY : Non-responsive. SURGICAL HISTORY : Non-responsive. ENCOUNTER: Initial ACUITY: 1 day PAIN SCALE: Non-responsive LOCATION: cranial TECHNIQUE: Multiple contiguous axial images were obtained of the head. Using automated exposure control and adj ustment of the mA and/or kV according to patient size, radiation dose was kept as low as reasonably a chievable to obtain optimal diagnostic quality images. DICOM format image data is available electro nically for review and comparison. FINDINGS: Left-sided subdural hematoma is grossly unchanged with thickness of just over a centimeter in the mid convexity left frontal region and similar thickness in the temporal region. Posterior left temporal parenchymal hematoma with mild surrounding edema is grossly stable. Ventricular compression and minim al subfalcine shift is unchanged. Parafalcine and para tentorial blood is unchanged. Intraventricular blood is unchanged. No new acute intracranial findings are identified. Fracture/dislocation of the left temporomandibular joint is noted. There is opacification of the sphe noid sinus. Right frontotemporal scalp hematoma is noted. CONCLUSION: Involving intracranial injuries and hemorrhage as described. No new acute findings. Left temporomandibular joint fracture/dislocation. Ernesto Gill MD on May 01, 2017 at 6:10 Board Certified Radiologist. This report was verified electronically.
[2017-05-01] MEDS: CITALOPRAM HYDROBROMIDE 40 MG TAB PO SCH ×2 (08:59→10:04)
[2017-05-01] MEDS: FOLIC ACID 1 MG TAB PO SCH ×2 (08:59→10:04)
[2017-05-01] MEDS: DOCUSATE SODIUM 100 MG CAP PO SCH ×2 (08:59→10:04)
[2017-05-01] MEDS: METOPROLOL TARTRATE 25 MG TAB PO SCH ×3 (08:59→20:39)
[2017-05-01] MEDS: DIVALPROEX SODIUM DELAYED RELEASE 250 MG TAB PO SCH ×3 (08:59→20:45)
[2017-05-01] MEDS: MEMANTINE HCL 10 MG TAB PO SCH ×3 (09:00→20:39)
[2017-05-01] MEDS ORDERED: levETIRAcetam 500 MG TAB PO SCH (09:00)
[2017-05-01] MEDS: TOPIRAMATE 100 MG TAB PO SCH ×3 (09:00→20:39)
[2017-05-01] MEDS: LACOSAMIDE 100 MG TAB PO SCH ×3 (09:00→20:39)
[2017-05-01] MEDS: PANTOPRAZOLE SOD 40 MG DELAYED RELEASE TAB PO SCH ×2 (09:00→10:04)
[2017-05-01] MEDS: BUDESONIDE-FORMOTEROL 160/4.5 MCG INHALER INH SCH ×2 (09:22→20:38)
[2017-05-01] MEDS: TIOTROPIUM BROMIDE 18 MCG INH INH SCH (09:22)
[2017-05-01] MEDS: levETIRAcetam 1000 MG INJ 100 ML IV SCH ×2 (09:22→20:39)
[2017-05-01] MEDS: ALBUTEROL SULFATE 90 MCG/ACT HFA 8 GM INHALER INH SCH ×4 (09:22→20:38)
--- NOTE | 2017-05-01 09:44 | HHI.NSPN ---
(Estuardo Arellano) History Chief Complaint: Unable to obtain due to patient's mental condition. (Estuardo Arellano) Interval History 04/30: The patient is a 61-year-old female who resides at a local retirement with history of schizoaffective disorder, seizures, status post CVA. According to report from retirement, she was not feeling well this afternoon, she ambulated to the bathroom and fell. There was loss of consciousness for an unknown period of time. No seizures reported today. She reportedly had repetitive speech initially upon regaining consciousness. Discussion with nursing staff in the emergency room indicates that the patient was able to say her name intermittently upon arrival in the emergency room. She has not been following commands. 05/01: This morning the patient is awake and fairly alert. She watches this practitioner as he moves about the room. She does verbalise but her speech is garbled and incoherent. She is noted to have tremors to both upper extremities and moves them spontaneously. She went for a repeat CT brain this morning. (Estuardo Arellano) System Review Comments Unable to obtain due to patient's mental condition. (Estuardo Arellano) Exam Results 04/29/17 04/29/17 04/30/17 04/30/17 05/01/17 05/01/17 06:00 18:00 06:00 18:00 06:00 18:00 Intake Total 200 ml Balance 200 ml Intake Oral 0 ml IV Total 200 ml # Voids 3 # Bowel Movements 0 Vital Signs Date Time Temp Pulse Resp B/P (MAP) Pulse Ox O2 Delivery O2 Flow Rate FiO2 05/01/17 04:00 94 05/01/17 04:00 99.0 94 20 128/59 (82) 98 05/01/17 00:00 81 05/01/17 00:00 99.8 81 20 99/50 (66) 97 04/30/17 22:00 74 04/30/17 20:00 69 04/30/17 20:00 98.5 69 18 164/76 (105) 98 10/31/17 15:49 59 18 100 Room Air 04/30/17 15:18 59 18 100 Room Air 04/30/17 15:18 97.8 57 18 134/71 (92) 97 Room Air 04/30/17 15:12 97.8 61 18 134/71 (92) 100 (Estuardo Arellano) Physical Examination GENERAL: Awake and fairly alert, affect flat, no apparent distress. SKIN: Warm, dry & intact w/swelling to the right frontotemporal region. HEENT: Normocephalic, right frontotemporal region swelling TTP, PERRLA, no otorrhea or rhinorrhea, MMM & pink, tongue midline. NECK: Active ROM w/o any pain, no JVD, trachea midline. CARDIOVASCULAR: S1S2 w/RRR w/o M/G/R, radial & pedal pulses 2+ bilaterally, cap refill < 2 sec, no pedal edema. Monitor is sinus rhythm w/o any ectopy noted. RESPIRATORY: CTAB w/o W/R/R, equal excursion, non-laboured, on RA. GASTROINTESTINAL: Abdomen soft, nontender, bowel sounds not appreciated. MUSCULOSKELETAL: HANSEN, moving BUE spontaneously L>R, tremors noted to BUE, no evident deformity or clubbing. NEUROLOGICAL: Awake & fairly alert, GCS 13 (E4 V3 M6). Eyes open when seen, does track. Speech is garbled and basically incomprehensible. Does follow some simple commands. Unable to assess sensation. Does grasp practitioner's hands and moves feet to command. Spontaneously moves BUE L>R. (Estuardo Arellano) Lab, Micro, Other Results Recent Impressions Head CT 05/01/17 0600 Signed Impressions: Service Date/Time: Monday, May 01, 2017 06:03 - CONCLUSION: Involving intracranial injuries and hemorrhage as described. No new acute findings. Left temporomandibular joint fracture/dislocation. Ernesto Gill MD Pelvis X-Ray 04/30/171524 Signed Impressions: Service Date/Time: Sunday, April 30, 2017 15:51 - CONCLUSION: The bony pelvic ring is grossly intact. David Bhandari MD Head CT 04/30/17 1525 Signed Impressions: Service Date/Time: Sunday, April 30, 2017 17:11 - CONCLUSION: Contrecoup injury with large right scalp hematoma, left subdural hematoma, multifocal left parietal parenchymal hemorrhages, right occipital intraventricular blood, and 7 mm midline shift towards the right. No skull fracture seen.. David Bhandari MD Chest X-Ray 04/30/17 1525 Signed Impressions: Service Date/Time: Sunday, April 30, 2017 15:47 - CONCLUSION: The lungs are clear. David Bhanadri MD Cervical Spine CT 04/30/17 1525 Signed Impressions: Service Date/Time: Sunday, April 30, 2017 17:11 - CONCLUSION: No acute findings. Stable degenerative changes. David Bhandari MD Laboratory Tests Test 04/30/17 16:40 05/01/17 03:46 05/01/17 04:40 White Blood Count 10.8 TH/MM3 9.3 TH/MM3 Red Blood Count 4.87 MIL/MM3 4.82 MIL/MM3 Hemoglobin 15.2 GM/DL 15.1 GM/DL Hematocrit 45.6 % 45.5 % Mean Corpuscular Volume 93.6 FL 94.4 FL Mean Corpuscular Hemoglobin 31.3 PG 31.2 PG Mean Corpuscular Hemoglobin Concent 33.4 % 33.1 % Red Cell Distribution Width 13.9 % 14.1 % Platelet Count 157 TH/MM3 163 TH/MM3 Mean Platelet Volume 8.9 FL 8.5 FL Neutrophils (%) (Auto) 77.1 % 71.1 % Lymphocytes (%) (Auto) 13.6 % 11.8 % Monocytes (%) (Auto) 8.0 % 16.7 % Eosinophils (%) (Auto) 0.9 % 0.1 % Basophils (%) (Auto) 0.4 % 0.3 % Neutrophils # (Auto) 8.3 TH/MM3 6.6 TH/MM3 Lymphocytes # (Auto) 1.5 TH/MM3 1.1 TH/MM3 Monocytes # (Auto) 0.9 TH/MM3 1.6 TH/MM3 Eosinophils # (Auto) 0.1 TH/MM3 0.0 TH/MM3 Basophils # (Auto) 0.0 TH/MM3 0.0 TH/MM3 CBC Comment DIFF FINAL DIFF FINAL Differential Comment Prothrombin Time 11.8 SEC Prothromb Time International Ratio 1.1 RATIO Activated Partial Thromboplast Time 23.7 SEC Urine Color YELLOW Urine Turbidity HAZY Urine pH 6.0 Urine Specific [place] 1.023 Urine Protein TRACE mg/dL Urine Glucose (UA) NEG mg/dL Urine Ketones NEG mg/dL Urine Occult Blood SMALL Urine Nitrite POS Urine Bilirubin NEG Urine Urobilinogen LESS THAN 2.0 MG/DL Urine Leukocyte Esterase LARGE Urine RBC 18 /hpf Urine WBC /hpf Urine Transitional Epithelial Cells <1 /hpf Urine Bacteria FEW /hpf Urine Hyaline Casts 1 /lpf Microscopic Urinalysis Comment CULTURE INDICATED Blood Urea Nitrogen 23 MG/DL 20 MG/DL Creatinine 0.87 MG/DL 0.90 MG/DL Random Glucose 99 MG/DL 126 MG/DL Calcium Level 8.3 MG/DL 8.4 MG/DL Sodium Level 141 MEQ/L 143 MEQ/L Potassium Level 4.4 MEQ/L 4.4 MEQ/L Chloride Level 108 MEQ/L 108 MEQ/L Carbon Dioxide Level 26.8 MEQ/L 26.8 MEQ/L Anion Gap 6 MEQ/L 8 MEQ/L Estimat Glomerular Filtration Rate 66 ML/MIN 63 ML/MIN Phenytoin (Dilantin) Level 26.0 MCG/ML 30.1 MCG/ML Valproic Acid (Depakene) Level 62 MCG/ML Total Protein 7.1 GM/DL Albumin 3.3 GM/DL Phosphorus Level 3.7 MG/DL Magnesium Level 2.0 MG/DL Alkaline Phosphatase 84 U/L Aspartate Amino Transf (AST/SGOT) 28 U/L Alanine Aminotransferase (ALT/SGPT) 48 U/L Total Bilirubin 0.3 MG/DL Nasal Screen MRSA (PCR) MRSA DETECTED (Estuardo Arellano) Medical Decision Making Impression and Plan Impression: 1. Acute left subdural hematoma with left frontotemporal hemorrhagic contusions. It is questionable whether she had some initial parenchymal hemorrhage leading to her fall, according to history. 2. Hypertension 3. History of schizoaffective-bipolar disorder Patient awake, does follow some commands, mental/neuro status appears stable. Reviewed labs and imaging for today. Patient would benefit from craniotomy for evacuation of left subdural haematoma. Plan: Discussed plan of care with Nursing. Primary management per Hospitalist/Principal Associate. Plan to do craniotomy on Saturday after discussion with family. Continue to monitor in [facility]. Frequent neuro checks. Hold aspirin and statin medications Continue Dilantin Depakote and VimHema cuevasppra for seizure prophylaxis. Ulcer prophylaxis. Non-chemical DVT prophylaxis. (Estuardo Arellano) Attending Statement The exam, history, and the medical decision-making described in the above note were completed with the assistance of the mid-level provider. I reviewed and agree with the findings presented. I attest that I had a [id number] encounter with the patient on the same day, and personally performed and documented my assessment and findings in the medical record. Patient remains with relatively stable neurologic exam. Continues to have significant speech deficit. Answers yes to nearly all questions. She is able to say her name. Moves all extremities without significant motor deficit. Vital signs are satisfactory We are trying to find family to get some input regarding correction of care. Continuing observation at this point due to relatively stable neurologic exam with mostly mild to moderate mass effect on the CT scan. If she does require surgery a delayed elective procedure may be best for this patient in order to allow the hemorrhage to mature and decreased risk of postoperative bleeding. (Josue Sahu MD) Estuardo Arellano May 01, 2017 09:44 Josue Sahu MD May 03, 2017 20:30
--- NOTE | 2017-05-01 10:35 | HHI.CCPN ---
Subjective Remarks/Hospital Course The patient is 61-year-old female with past medical history of seizure disorder , schizophrenia, hypertension who presented to [facility] ED from a local nursing facility with complaints of headache and status post fall. Per ED records the patient was not feeling well and got up and walked to the bathroom and fell. jail staff reported loss of consciousness for unknown amount of time. When she woke up she had repetitive speech and EMS was called. The patient was brought into the ED for further evaluation and on arrival she was awake, however, she was not voicing or answering any questions. The patient is aphasic. In the ED she had a blood pressure 134/71. CT scan of the brain showed large right scalp hematoma, left subdural hematoma, multifocal left parietal parenchymal hemorrhages, right occipital intraventricular blood and 7 mm midline shift toward the right. Cervical spine CT was obtained and showed no evidence of any acute findings. In the ED she was given Ativan 1 mg IM x1. The patient was seen by Dr. Sahu from neurosurgery and planned to repeat CT brain in a.m. When seen the patient was on room air oxygen. 05/01: Opens eyes, protects airway, no additional seizures last night. Objective Vital Signs Date Time Temp Pulse Resp B/P (MAP) Pulse Ox O2 Delivery O2 Flow Rate FiO2 05/01/17 09:00 84 20 155/74 (101) 98 05/01/17 08:00 99.1 04/30/17 15:49 Room Air Intake and Output 05/01/17 05/01/17 05/02/17 08:00 16:00 00:00 Intake Total 0 ml Balance 0 ml Result Diagram: 05/01/17 0346 05/01/17 0346 Objective Remarks PHYSICAL EXAMINATION GENERAL: A 61-year-old female HEENT: Atraumatic, normocephalic. Pupils equal, round, reactive to light and accommodation. Extraocular muscles intact. Conjunctiva pink. Nonicteric sclerae. Oral mucosa within normal. NECK: Supple. Trachea midline. Airway widely patent. CARDIOVASCULAR: Regular rate and rhythm. Normal S1-S2. No murmurs, rubs or gallops noted. LUNGS: Clear, comfortable. No rales or wheezing. ABDOMEN: Soft, nontender, no distension. Positive bowel sounds. EXTREMITIES: No cyanosis, clubbing or edema. Warm, well perfused. NEUROLOGIC: Lethargic. Speech garbled, incoherent. Moves both arms spontaneously. A/P Assessment and Plan IMPRESSION: 1. Acute left subdural hematoma with right occipital intraventricular blood and 7 mm midline shift toward the right. 2. Status post fall. 3. Hypertension. 4. History of seizure disorder. 5. Urinary tract infection. 6. History of schizophrenia. RECOMMENDATIONS: 1. Monitor neuro status closely and avoid any sedatives. Continue with antiseizure meds. The patient is on Vimpat 200 mg b.i.d. Keppra, Depakote, Topamax and Dilantin 200 mg IV q.8h. Will check Dilantin and Depakote level. 2. Repeat CT brain now. 3. Oxygen p.r.n. to maintain sats above 92%. 4. Bronchodilators in the form of DuoNeb and continue with Symbicort and Spiriva as ordered. 5. Monitor heart rate and blood pressure closely. Maintain systolic blood pressure less than 150. 6. Continue with Lopressor 25 mg b.i.d. and Vasotec 1.25 mg IV q. 6-hour p.r.n. for systolic blood pressure greater than 150 or diastolic blood pressure greater than 90. 7. Monitor renal function Is and Os and electrolyte replacement as needed. Place on IV fluids NS at 84 ml an hour. 8. Start the patient on Rocephin 1 gram daily for UTI and follow up on urine cultures. Monitor for signs infections which include fever and WBC. 9. Keep n.p.o. for now and will consult speech therapy for evaluation. Continue with Protonix 40 mg daily. 10. Sliding scale insulin with Accu-Cheks for glycemic control if needed. 11. Monitor CBC. 12. GI prophylaxis with Protonix 40 mg daily and DVT prophylaxis with SCDs. 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 13. Case discussed with Dr. Sahu. Overall impression: Stable respiratory and hemodynamic status. Jarvis Mckeon MD May 01, 2017 10:35
[2017-05-01] MEDS: ENALAPRILAT 1.25 MG/ML VIAL IV PUSH PRN (15:27)
[2017-05-01] MEDS: SODIUM CHLOR 0.9% 1000 ML INJ 1,000 ML IV SCH (15:28)
[2017-05-01] MEDS: cefTRIAXone INJ 1,000 MG in SODIUM CHLORIDE 0.9% INJ 100 ML IV SCH (20:38)
[2017-05-02] VITALS (14 sets, daily range): BP systolic 131–166; BP diastolic 61–78; PULSE 68–79; RESP 14–24; TEMP 98.3–99.3; O2SAT 94–100
[2017-05-02] MEDS: ENALAPRILAT 1.25 MG/ML VIAL IV PUSH PRN ×3 (01:23→22:39)
[2017-05-02] MEDS: RESP: ALBUTEROL 2.5 MG/IPRATROPIUM 0.5 MG NEB (SCH) INH ×4 (03:04→20:09)
[2017-05-02] MEDS: CHLORHEXIDINE GLUCONATE 2 % 1 PACK (2 CLOTHS) TOP SCH (04:00)
[2017-05-02] MEDS: INSULIN NovoLIN REGULAR SUPPLEMENTAL SCALE SQ SCH ×7 (04:00→23:17)
[2017-05-02] MEDS: SODIUM CHLOR 0.9% 1000 ML INJ 1,000 ML IV SCH ×2 (04:45→17:17)
[2017-05-02 05:18] LABS: BICARBONATE 24.5 MEQ/L (21.0-32.0); MAGNESIUM 1.8 MG/DL (1.5-2.5); POTASSIUM 3.9 MEQ/L (3.5-5.1)
[2017-05-02] MEDS: BUDESONIDE-FORMOTEROL 160/4.5 MCG INHALER INH SCH ×2 (08:21→20:31)
[2017-05-02] MEDS: LACOSAMIDE 100 MG TAB PO SCH ×2 (08:21→20:32)
[2017-05-02] MEDS: ALBUTEROL SULFATE 90 MCG/ACT HFA 8 GM INHALER INH SCH ×4 (08:21→20:31)
[2017-05-02] MEDS: TIOTROPIUM BROMIDE 18 MCG INH INH SCH (08:21)
[2017-05-02] MEDS: METOPROLOL TARTRATE 25 MG TAB PO SCH ×2 (08:22→20:32)
[2017-05-02] MEDS: CITALOPRAM HYDROBROMIDE 40 MG TAB PO SCH (08:22)
[2017-05-02] MEDS: DOCUSATE SODIUM 100 MG CAP PO SCH (08:22)
[2017-05-02] MEDS: FOLIC ACID 1 MG TAB PO SCH (08:22)
[2017-05-02] MEDS: PANTOPRAZOLE SOD 40 MG DELAYED RELEASE TAB PO SCH (08:22)
[2017-05-02] MEDS: levETIRAcetam 1000 MG INJ 100 ML IV SCH ×2 (08:22→20:32)
[2017-05-02] MEDS: DIVALPROEX SODIUM DELAYED RELEASE 250 MG TAB PO SCH ×2 (08:22→20:32)
[2017-05-02] MEDS: TOPIRAMATE 100 MG TAB PO SCH ×2 (08:22→20:32)
[2017-05-02] MEDS: MEMANTINE HCL 10 MG TAB PO SCH ×2 (08:22→20:32)
--- NOTE | 2017-05-02 09:47 | HHI.NSPN ---
(Estuardo Arellano) History Chief Complaint: Unable to obtain due to patient's mental condition. (Estuardo Arellano) Interval History 04/30: The patient is a 61-year-old female who resides at a local halfway with history of schizoaffective disorder, seizures, status post CVA. According to report from halfway, she was not feeling well this afternoon, she ambulated to the bathroom and fell. There was loss of consciousness for an unknown period of time. No seizures reported today. She reportedly had repetitive speech initially upon regaining consciousness. Discussion with nursing staff in the emergency room indicates that the patient was able to say her name intermittently upon arrival in the emergency room. She has not been following commands. 05/01: This morning the patient is awake and fairly alert. She watches this practitioner as he moves about the room. She does verbalise but her speech is garbled and incoherent. She is noted to have tremors to both upper extremities and moves them spontaneously. She went for a repeat CT brain this morning. 05/02: This morning the patient is seen in rounds with Dr. Sahu. The undersigned acts as a scribe for the remainder of this note. The patient is awake and has nonsensical speech. Nursing reports that she keeps saying the word "tarpon." (Estuardo Arellano) Exam Results 04/30/17 04/30/17 05/01/17 05/01/17 05/02/17 05/02/17 05:59 17:59 05:59 17:59 05:59 17:59 Intake Total 200 ml 1100 ml 1200 ml 338 ml Balance 200 ml 1100 ml 1200 ml 338 ml Intake Oral 0 ml 120 ml IV Total 200 ml 1100 ml 1200 ml 218 ml # Voids 5 2 6 # Bowel Movements 0 0 0 Vital Signs Date Time Temp Pulse Resp B/P (MAP) Pulse Ox O2 Delivery O2 Flow Rate FiO2 05/02/17 06:00 72 05/02/17 04:00 98.8 78 18 131/61 (84) 96 05/02/17 04:00 78 05/02/17 03:08 99 05/02/17 02:00 70 05/02/17 00:00 98.3 70 18 166/78 (107) 98 05/02/17 00:00 70 05/01/17 23:19 97 05/01/17 22:00 74 05/01/17 20:00 76 05/01/17 20:00 98.5 76 17 141/65 (90) 100 05/01/17 18:00 79 22 126/66 (86) 97 05/01/17 17:00 75 19 122/60 (80) 98 05/01/17 16:00 98.1 70 17 116/57 (76) 99 05/01/17 15:00 72 22 165/71 (102) 100 05/01/17 15:00 72 05/01/17 14:00 67 17 124/60 (81) 99 05/01/17 13:00 76 22 154/72 (99) 96 05/01/17 12:00 98.7 76 22 154/72 (99) 96 05/01/17 11:00 75 22 163/78 (106) 100 05/01/17 10:00 83 17 158/76 (103) 98 05/01/17 09:00 84 20 155/74 (101) 98 05/01/17 08:00 99.1 82 18 159/77 (104) 98 05/01/17 07:00 81 05/01/17 07:00 85 19 135/72 (93) 97 05/01/17 04:00 94 05/01/17 04:00 99.0 94 20 128/59 (82) 98 05/01/17 00:00 81 05/01/17 00:00 99.8 81 20 99/50 (66) 97 04/30/17 22:00 74 04/30/17 20:00 69 04/30/17 20:00 98.5 69 18 164/76 (105) 98 04/30/17 15:49 59 18 100 Room Air 04/30/17 15:18 59 18 100 Room Air 04/30/17 15:18 97.8 57 18 134/71 (92) 97 Room Air 04/30/17 15:12 97.8 61 18 134/71 (92) 100 (Estuardo Arellano) Physical Examination MUSCULOSKELETAL: HANSEN. NEUROLOGICAL: Eyes open spontaneously. Speech is nonsensical, will intermittently say her name, exhibits expressive & receptive aphasia, Does not follow any command but does appear to cue on activity. (Estuardo Arellano) Lab, Micro, Other Results Recent Impressions Head CT 05/01/17 0600 Signed Impressions: Service Date/Time: Monday, May 01, 2017 06:03 - CONCLUSION: Involving intracranial injuries and hemorrhage as described. No new acute findings. Left temporomandibular joint fracture/dislocation. Ernesto Gill MD Pelvis X-Ray 04/30/17 1525 Signed Impressions: Service Date/Time: Sunday, April 30, 2017 15:51 - CONCLUSION: The bony pelvic ring is grossly intact. David Bhandari MD Head CT 04/30/17 1525 Signed Impressions: Service Date/Time: Sunday, April 30, 2017 17:11 - CONCLUSION: Contrecoup injury with large right scalp hematoma, left subdural hematoma, multifocal left parietal parenchymal hemorrhages, right occipital intraventricular blood, and 7 mm midline shift towards the right. No skull fracture seen.. David Bhandari MD Chest X-Ray 04/30/17 1525 Signed Impressions: Service Date/Time: Sunday, April 30, 2017 15:47 - CONCLUSION: The lungs are clear. David Bhandari MD Cervical Spine CT 04/30/17 1525 Signed Impressions: Service Date/Time: Sunday, April 30, 2017 17:11 - CONCLUSION: No acute findings. Stable degenerative changes. David Bhandari MD Laboratory Tests Test 04/30/17 16:40 05/01/17 03:46 05/01/17 04:40 05/02/17 04:07 White Blood Count 10.8 TH/MM3 9.3 TH/MM3 Red Blood Count 4.87 MIL/MM3 4.82 MIL/MM3 Hemoglobin 15.2 GM/DL 15.1 GM/DL Hematocrit 45.6 % 45.5 % Mean Corpuscular Volume 93.6 FL 94.4 FL Mean Corpuscular Hemoglobin 31.3 PG 31.2 PG Mean Corpuscular Hemoglobin Concent 33.4 % 33.1 % Red Cell Distribution Width 13.9 % 14.1 % Platelet Count 157 TH/MM3 163 TH/MM3 Mean Platelet Volume 8.9 FL 8.5 FL Neutrophils (%) (Auto) 77.1 % 71.1 % Lymphocytes (%) (Auto) 13.6 % 11.8 % Monocytes (%) (Auto) 8.0 % 16.7 % Eosinophils (%) (Auto) 0.9 % 0.1 % Basophils (%) (Auto) 0.4 % 0.3 % Neutrophils # (Auto) 8.3 TH/MM3 6.6 TH/MM3 Lymphocytes # (Auto) 1.5 TH/MM3 1.1 TH/MM3 Monocytes # (Auto) 0.9 TH/MM3 1.6 TH/MM3 Eosinophils # (Auto) 0.1 TH/MM3 0.0 TH/MM3 Basophils # (Auto) 0.0 TH/MM3 0.0 TH/MM3 CBC Comment DIFF FINAL DIFF FINAL Differential Comment Prothrombin Time 11.8 SEC Prothromb Time International Ratio 1.1 RATIO Activated Partial Thromboplast Time 23.7 SEC Urine Color YELLOW Urine Turbidity HAZY Urine pH 6.0 Urine Specific [place] 1.023 Urine Protein TRACE mg/dL Urine Glucose (UA) NEG mg/dL Urine Ketones NEG mg/dL Urine Occult Blood SMALL Urine Nitrite POS Urine Bilirubin NEG Urine Urobilinogen LESS THAN 2.0 MG/DL Urine Leukocyte Esterase LARGE Urine RBC 18 /hpf Urine WBC /hpf Urine Transitional Epithelial Cells <1 /hpf Urine Bacteria FEW /hpf Urine Hyaline Casts 1 /lpf Microscopic Urinalysis Comment CULTURE INDICATED Blood Urea Nitrogen 23 MG/DL 20 MG/DL 12 MG/DL Creatinine 0.87 MG/DL 0.90 MG/DL 0.62 MG/DL Random Glucose 99 MG/DL 126 MG/DL 108 MG/DL Calcium Level 8.3 MG/DL 8.4 MG/DL 8.0 MG/DL Sodium Level 141 MEQ/L 143 MEQ/L 140 MEQ/L Potassium Level 4.4 MEQ/L 4.4 MEQ/L 3.9 MEQ/L Chloride Level 108 MEQ/L 108 MEQ/L 108 MEQ/L Carbon Dioxide Level 26.8 MEQ/L 26.8 MEQ/L 24.5 MEQ/L Anion Gap 6 MEQ/L 8 MEQ/L 8 MEQ/L Estimat Glomerular Filtration Rate 66 ML/MIN 63 ML/MIN 97 ML/MIN Phenytoin (Dilantin) Level 26.0 MCG/ML 30.1 MCG/ML Valproic Acid (Depakene) Level 62 MCG/ML Total Protein 7.1 GM/DL Albumin 3.3 GM/DL Phosphorus Level 3.7 MG/DL Magnesium Level 2.0 MG/DL 1.8 MG/DL Alkaline Phosphatase 84 U/L Aspartate Amino Transf (AST/SGOT) 28 U/L Alanine Aminotransferase (ALT/SGPT) 48 U/L Total Bilirubin 0.3 MG/DL Nasal Screen MRSA (PCR) MRSA DETECTED (Estuardo Arellano) Medical Decision Making Impression and Plan The Impression & Plan are carried forward from the note of except for deletion of the authors daily impression. Impression: 1. Acute left subdural hematoma with left frontotemporal hemorrhagic contusions. It is questionable whether she had some initial parenchymal hemorrhage leading to her fall, according to history. 2. Hypertension 3. History of schizoaffective-bipolar disorder Plan: Discussed plan of care with Nursing. Primary management per Hospitalist/Converter Operator. Plan to do craniotomy on Saturday after discussion with family. Continue to monitor in [facility]. Frequent neuro checks. Hold aspirin and statin medications Continue Dilantin Depakote and Vimpat, Keppra for seizure prophylaxis. Ulcer prophylaxis. Non-chemical DVT prophylaxis. (Estuardo Arellano) Attending Statement The exam, history, and the medical decision-making described in the above note were completed with the assistance of the mid-level provider. I reviewed and agree with the findings presented. I attest that I had a [id number] encounter with the patient on the same day, and personally performed and documented my assessment and findings in the medical record. Patient remains with mild lethargy. Still with significant receptive and expressive speech deficit Does not follow commands well 05/01/2017 CT scan had stable left hemispheric contusion, diffuse subdural hematoma with approximately 5-6 mm midline shift. Nursing staff reports family contacted and likely do not wish to have any aggressive treatment for the patient (Josue Sahu MD) Estuardo Arellano May 02, 2017 09:47 Josue Sahu MD May 03, 2017 20:32
--- NOTE | 2017-05-02 16:26 | HHI.CCPN ---
Subjective Remarks/Hospital Course The patient is 61-year-old female with past medical history of seizure disorder , schizophrenia, hypertension who presented to [facility] ED from a local nursing facility with complaints of headache and status post fall. Per ED records the patient was not feeling well and got up and walked to the bathroom and fell. senior living staff reported loss of consciousness for unknown amount of time. When she woke up she had repetitive speech and EMS was called. The patient was brought into the ED for further evaluation and on arrival she was awake, however, she was not voicing or answering any questions. The patient is aphasic. In the ED she had a blood pressure 134/71. CT scan of the brain showed large right scalp hematoma, left subdural hematoma, multifocal left parietal parenchymal hemorrhages, right occipital intraventricular blood and 7 mm midline shift toward the right. Cervical spine CT was obtained and showed no evidence of any acute findings. In the ED she was given Ativan 1 mg IM x1. The patient was seen by Dr. Sahu from neurosurgery and planned to repeat CT brain in a.m. When seen the patient was on room air oxygen. 05/01: Opens eyes, protects airway, no additional seizures last night. 05/02: Generally deteriorating neurological status. JUAN is a brother who is homeless. We may try to get in communication with JUAN concerning long-term planning, code status. Objective Vital Signs Date Time Temp Pulse Resp B/P (MAP) Pulse Ox O2 Delivery O2 Flow Rate FiO2 05/02/17 14:00 72 05/02/17 12:00 98.4 15 142/65 (90) 94 04/30/17 15:49 Room Air Intake and Output 05/02/17 05/02/17 05/03/17 08:00 16:00 00:00 Intake Total 1121 ml Balance 1121 ml Result Diagram: 05/01/17 0346 05/02/17 0407 Other Results Microbiology Date/Time Source Procedure Growth Status 04/30/17 16:40 Urine Clean Catch Urine Culture - Final Providencia Stuartii Complete Objective Remarks PHYSICAL EXAMINATION GENERAL: A 61-year-old female HEENT: Atraumatic, normocephalic. Pupils equal, round, reactive to light and accommodation. Extraocular muscles intact. Conjunctiva pink. Nonicteric sclerae. Oral mucosa within normal. NECK: Supple. Trachea midline. Airway widely patent. CARDIOVASCULAR: Regular rate and rhythm. Normal S1-S2. No murmurs, rubs or gallops noted. LUNGS: Clear, comfortable. No rales or wheezing. ABDOMEN: Soft, nontender, no distension. Positive bowel sounds. EXTREMITIES: No cyanosis, clubbing or edema. Warm, well perfused. NEUROLOGIC: Lethargic. Speech garbled, incoherent. Moves both arms weakly. A/P Assessment and Plan IMPRESSION: 1. Acute left subdural hematoma with right occipital intraventricular blood and 7 mm midline shift toward the right. 2. Status post fall. 3. Hypertension. 4. History of seizure disorder. 5. Urinary tract infection. 6. History of schizophrenia. RECOMMENDATIONS: 1. Monitor neuro status closely and avoid any sedatives. Continue with antiseizure meds. The patient is on Vimpat 200 mg b.i.d. Keppra, Depakote, Topamax and Dilantin 200 mg IV q.8h. Will check Dilantin and Depakote level. 2. Repeat CT brain now. 3. Oxygen p.r.n. to maintain sats above 92%. 4. Bronchodilators in the form of DuoNeb and continue with Symbicort and Spiriva as ordered. 5. Monitor heart rate and blood pressure closely. Maintain systolic blood pressure less than 150. 6. Continue with Lopressor 25 mg b.i.d. and Vasotec 1.25 mg IV q. 6-hour p.r.n. for systolic blood pressure greater than 150 or diastolic blood pressure greater than 90. 7. Monitor renal function Is and Os and electrolyte replacement as needed. Place on IV fluids NS at 84 ml an hour. 8. Start the patient on Rocephin 1 gram daily for UTI and follow up on urine cultures. Monitor for signs infections which include fever and WBC. 9. Keep n.p.o. for now and will consult speech therapy for evaluation. Continue with Protonix 40 mg daily. 10. Sliding scale insulin with Accu-Cheks for glycemic control if needed. 11. Monitor CBC. 12. GI prophylaxis with Protonix 40 mg daily and DVT prophylaxis with SCDs. 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 Overall impression: Stable respiratory and hemodynamic status. Deteriorating mental status. Will ask Palliative Care service to see. Jarvis Mckeon MD May 02, 2017 16:26
--- NOTE | 2017-05-02 19:12 | PD.CONS ---
Consult Service Palliative Care Consult Requested By Dr. Mckeon. Primary Care Physician Rui Rose MD Reason for Consultation a. To assist with evaluation and management of symptoms including: Debility. b. To assist medical decision maker(s) with: better understanding of current medical conditions; weighing benefits/burdens of medical treatment options; making medical treatment decisions. . HPI History of Present Illness Mrs. Hernandez is a 61-year-old female with a medical history significant for seizure disorder, schizoaffective-bipolar disorder, hypertension, urinary incontinence, anxiety, arthritis.Patient arrived to ED via EMS on 04/30/17 for evaluation after a fall with loss of consciousness. Patient is a long-term resident of [facility]. As per medical records, patient endorses not feeling well, ambulated to the bathroom and fell. Patient was found were repetitive speech upon regaining consciousness, EMS was called to is scene. Upon ED arrival, patient was awake but not answering any questions. Head CT revealing contrecoup injury with large right scalp hematoma, left subdural hematoma, multifocal left. All parenchymal hemorrhages, right occipital intraventricular blood and 7 mm midline shift towards the right. No skull fracture seen. Chest x-ray and pelvis x-ray negative for acute process. UA positive for nitrates and leukocytes. Laboratory workup revealing WBC 10.8, Hgb 15.2, platelet count 157. BUN/creatinine 23/0.87. Liver enzymes within normal limits. Patient was admitted for further evaluation and management. Neurosurgery, Dr. Sahu consulted on 04/30/17 for evaluation of traumatic brain injury-intracranial hemorrhage. Patient awake and alert during consultation, continue neurological observation recommended. Cervical spine CT negative for acute finding. Follow-up head CT 05/01/17 revealing involving intracranial injuries and hemorrhage as described, no new acute findings. Left temporomandibular joint fracture/dislocation. Urine culture positive for Providencia Stuartii. Patient was seen by speech therapy on 05/01/17, pured diet and thin liquids recommended. PT evaluation 05/01/17, patient was unable to participate in therapy secondary to lethargy and inability to follow commands. Clinical course complicated by progressive altered mental status, repetitive speech. Patient not following commands, less interactive, unable to verbalize her name. Palliative care has been consulted for clarifications of goals of care given deterioration in neurological status. Patient seen in ICU. Worsening bed in no acute distress. Awake, tracking with eyes. Repetitive speech. Intermittently answering all questions with "yes". Not following commands, unable to tell me her name. Nonsensical, garbled speech. Patient afebrile, hypertensive with SBP in the 140s to 150s. Tolerated room air, oxygen saturation in the high 90s. workup today revealing WBC 9.3, Hgb stable at 15.1, platelet count 163. Neurosurgery considering craniotomy, plan for Saturday05/06/17. Reviewed prior medical records, patient with multiple hospitalizations. Most recent from 01/11/17-01/14/17 secondary to altered mental status and lactic acidosis. Patient was returned to [facility]. Previous hospitalizations 12/07/16-12/10/16 secondary to seizure activity. Patient previously at [facility], discharge to [facility]. During that admission, brother Julio Cuevas was listed as contact, case management was unable to locate him. Prior hospitalization 10/07/16 to 10/17/16 and 08/06/16 to 08/09/16 secondary to status epilepticus. Discussed case with Dr. Mckeon and bedside RN. Many attempts at contacting next of kin. Patient is a resident of [facility], previously at [facility]. As per scanned documents, patient residing at [facility] since August 2009. Reviewed prior hospitalizations and ED visits for contact information. Brother Julio Cuevas listed as contact. Called this number, [facility]. No resident or family member by this name. Computer search, found Julio Cuevas in [place], car sales exec at [facility] [employer]. Telephone call, , left message in voicemail. Last name, found Kt Cuevas , called her place of employment, [employer]. Obtained home number . Located Julio Cuevas, he confirms being patient's sibling. He tells me that he hasn't seen patient in many years, he was not even sure if patient was still alive. Medical update provided. Reviewed patient's deteriorating neurological condition and overall poor prognosis. He tells me that to his knowledge, patient is not , does not have any children, both parents are now . They aren't 4 siblings in total, youngest sibling William 8 years ago. Obtained contact information for patient's sister Ania. Called Ania and spoke with her daughter Lisette, provided medical update. Left message for Ania. . Function/Cognitive Trajectory Patient long-term resident of [facility]. As per liaison Brandy, patient was independent with all ADLs. . Review of Systems ROS Limitations: Clinical Condition, Altered Mental Status Constitutional: DENIES: Fever Eyes: DENIES: Eye inflammation Ears, nose, mouth, throat: DENIES: Nasal discharge, Running Nose, Epistaxis Respiratory: DENIES: Cough, Wheezing, Sputum production Cardiovascular: DENIES: Lower Extremity Edema Gastrointestinal: DENIES: Diarrhea, Vomiting Genitourinary: COMPLAINS OF: Urinary incontinence Integumentary: DENIES: Rash Hematologic/Lymphatics: COMPLAINS OF: Bruising Immunologic/Allergic: DENIES: Eczema Neurologic: COMPLAINS OF: Seizures, Poor Balance Psychiatric: COMPLAINS OF: Anxiety, Confusion Other ROS: Limited ROS secondary to patient's clinical condition. ROS obtained from medical records and clinical observation. . Past Family Social History Coded Allergies: aripiprazole (Unverified Allergy, Unknown, 02/12/17) Past Medical History Seizure disorder Schizoaffective-bipolar disorder Hypertension Urinary incontinence Anxiety Arthritis Asthma Hyperlipidemia COPD Prior CVA Irritable bowel syndrome Right carotid artery stenosis . Past Surgical History Tubal ligation Previous oral surgery, TMJ Bilateral ear surgery . Reported Medications Vimpat (Lacosamide) 100 Mg Tab 200 Mg PO BID Topamax (Topiramate) 100 Mg Tab 100 Mg PO BID Namenda (Memantine) 10 Mg Tab 10 Mg PO BID Depakote DR (Divalproex Sodium) 250 Mg Tabdr 750 Mg PO Q12HR Folic Acid 0.4 Mg Tab 800 Mcg PO DAILY Dilantin (Phenytoin Extended) 100 Mg Cap 300 Mg PO Q12HR Metoprolol Tartrate 25 Mg Tab 25 Mg PO BID Colace (Docusate Sodium) 100 Mg Capsule 100 Mg PO DAILY Symbicort Inh (Budesonide/Formoterol Fumarate) 160-4.5 Mcg/Act Aero 2 Puff INH BID Ventolin Hfa 18 GM Inh (Albuterol Sulfate) 90 Mcg/Act Aer 2 Puff INH QID Spiriva Handihaler (Tiotropium Inh) 18 Mcg Cap 18 Mcg INH DAILY Levetiracetam 1,000 Mg Tab 1,000 Mg PO TID Citalopram (Citalopram Hydrobromide) 40 Mg Tab 40 Mg PO DAILY Atorvastatin (Atorvastatin Calcium) 80 Mg Tab 80 Mg PO HS Aspirin EC (Aspirin) 81 Mg Tabdr 81 Mg PO DAILY . Current Medications Medications (Trade) Dose Ordered Sig/Elizabet Route Start Time Stop Time Status Last Admin (Proair Hfa Inh) 2 puff QID INH 04/30/17 21:00 05/02/17 17:17 (Symbicort 160-4.5 Inh) 2 puff BID INH 04/30/17 21:00 05/02/17 08:21 (CeleXA) 40 mg DAILY PO 05/01/17 09:00 05/02/17 08:22 (Depakote Dr) 750 mg Q12HR PO 04/30/17 21:00 05/02/17 08:22 (Colace) 100 mg DAILY PO 05/01/17 09:00 05/02/17 08:22 (Folate) 1 mg DAILY PO 05/01/17 09:00 05/02/17 08:22 (Vimpat) 200 mg BID PO 04/30/17 21:00 05/02/17 08:21 (Namenda) 10 mg BID PO 04/30/17 21:00 05/02/17 08:22 (Lopressor) 25 mg BID PO 04/30/17 21:00 05/02/17 08:22 (Spiriva Inh) 18 mcg DAILY INH 05/01/17 09:00 05/02/17 08:21 (Topamax) 100 mg BID PO 04/30/17 21:00 05/02/17 08:22 (Vasotec Inj) 1.25 mg Q6H PRN IV PUSH 04/30/17 18:30 05/02/17 15:15 (Protonix) 40 mg DAILY PO 05/01/17 09:00 05/02/17 08:22 (Dilantin Inj) 200 mg Q8HR IV 04/30/17 22:00 Future Hold Levetriacetam 100 ml @ 400 mls/hr Q12HR IV 04/30/17 21:00 05/02/17 08:22 (Duoneb Neb) 1 ampule Q6HR NEB INH 04/30/17 18:45 05/02/17 16:40 (Duoneb Neb) 1 ampule Q2HR NEB PRN INH 04/30/17 18:45 Miscellaneous Information 1 Q361D XX 04/30/17 18:45 (Chlorhexidine 2% Cloth) 3 pack Taper DAILY@04 TOP 05/01/17 04:00 04/27/18 03:59 04/30/17 22:00 (Chlorhexidine 2% Cloth) 3 pack UNSCH PRN TOP 04/30/17 18:45 Sodium Chloride 1,000 ml @ 84 mls/hr [id number] IV 04/30/17 20:00 05/02/17 17:17 (D50w (Vial) Inj) 50 ml UNSCH PRN IV PUSH 04/30/17 18:45 (Glucagon Inj) 1 mg UNSCH PRN OTHER 04/30/17 18:45 (NovoLIN R SUPPLEMENTAL SCALE) 1 Q4HR SQ 04/30/17 20:00 05/01/17 17:30 Ceftriaxone Sodium 1000 mg/ Sodium Chloride 100 ml @ 200 mls/hr Q24H IV 04/30/17 21:00 05/01/17 20:38 Family History As per prior medical records, mother with history of breast cancer. . Substance Use Tobacco: Smoker. Smokes 10 cigarettes a day. Alcohol: No documented history of alcohol abuse. Prescription med abuse: Unknown. Illicits: Prior documented history of illegal drug use approximately 5 years ago. . Psychosocial History Patient is a long-term resident of [facility]. As per patient's brother and sister, patient is not , did not have any children. Both parents are . One brother Julio Denise, sister Ania Little, brother William Denise is now . . Spiritual/Cultural Factors Jew yony. . Health Care Surrogate(s): As per patient's brother and sister, patient is not , did not have any children. Both parents are . One brother Julio Cuevas, sister Ania Little, brother William Cuevas is now . As per [place] statute, healthcare proxy decision maker falls to the majority of patient's siblings, for which she has 2. . Family/friends goals: Unable to locate family members at this time. . Ethical and Legal Issues Patient with significant psychiatric history, alcoholism and homelessness. Unable to participate in medical decision-making secondary to clinical condition. Siblings serving as healthcare proxy decision maker. . Physical Exam Vital Signs Date Time Temp Pulse Resp B/P (MAP) Pulse Ox O2 Delivery O2 Flow Rate FiO2 05/02/17 16:00 69 05/02/17 16:00 98.5 69 14 144/66 (92) 100 05/02/17 14:00 72 05/02/17 12:00 98.4 73 15 142/65 (90) 94 05/02/17 12:00 73 05/02/17 10:00 74 05/02/17 08:00 79 05/02/17 08:00 98.4 78 24 158/74 (102) 99 05/02/17 06:00 72 05/02/17 04:00 98.8 78 18 131/61 (84) 96 05/02/17 04:00 78 05/02/17 03:08 99 05/02/17 02:00 70 05/02/17 00:00 98.3 70 18 166/78 (107) 98 05/02/17 00:00 70 05/01/17 23:19 97 05/01/17 22:00 74 05/01/17 20:00 76 05/01/17 20:00 98.5 76 17 141/65 (90) 100 05/01/17 18:00 79 22 126/66 (86) 97 05/02/17 05/03/17 19:00 07:00 Intake Total 882 ml Balance 882 ml IV Total 882 ml Exam CONSTITUTIONAL/GENERAL: This is an adequately nourished patient, in no apparent distress. TUBES/LINES/DRAINS: PIV's, SCDs. SKIN: No jaundice, rashes, or lesions. Ecchymoses on upper extremities. No wounds seen anteriorly. Skin temperature appropriate. Not diaphoretic. Right Periorbital ecchymosis. HEAD: Atraumatic. Normocephalic. EYES: Pupils equal and round and reactive. No scleral icterus. No injection or drainage. ENT: Hearing grossly normal. Nose without bleeding or purulent drainage. Moist oral mucosa, edentulous. NECK: Trachea midline. Supple, nontender. CARDIOVASCULAR: Regular rate and rhythm without murmurs, gallops, or rubs. No JVD. Peripheral pulses symmetric. RESPIRATORY/CHEST: Symmetric, unlabored respirations. Clear to auscultation. GASTROINTESTINAL: Abdomen soft, non-tender, nondistended. No guarding. Bowel sounds present. GENITOURINARY: Without palpable bladder distension. MUSCULOSKELETAL: Extremities without clubbing, cyanosis, or edema. No mottling or clubbing. NEUROLOGICAL: Awake, eyes opening, following. Repetitive speech, answering "yes " to all questions. Unable to tell me her name. Not following commands. Moves all extremities. PSYCHIATRIC: Unable to assess secondary to clinical condition. Appears calm. . Diagnostic Tests Laboratory Laboratory Tests Test 04/30/17 16:40 05/01/17 03:46 05/01/17 04:40 05/02/17 04:07 White Blood Count 10.8 TH/MM3 (4.0-11.0) 9.3 TH/MM3 (4.0-11.0) Red Blood Count 4.87 MIL/MM3 (4.00-5.30) 4.82 MIL/MM3 (4.00-5.30) Hemoglobin 15.2 GM/DL (11.6-15.3) 15.1 GM/DL (11.6-15.3) Hematocrit 45.6 % (35.0-46.0) 45.5 % (35.0-46.0) Mean Corpuscular Volume 93.6 FL (80.0-100.0) 94.4 FL (80.0-100.0) Mean Corpuscular Hemoglobin 31.3 PG (27.0-34.0) 31.2 PG (27.0-34.0) Mean Corpuscular Hemoglobin Concent 33.4 % (32.0-36.0) 33.1 % (32.0-36.0) Red Cell Distribution Width 13.9 % (11.6-17.2) 14.1 % (11.6-17.2) Platelet Count 157 TH/MM3 (150-450) 163 TH/MM3 (150-450) Mean Platelet Volume 8.9 FL (7.0-11.0) 8.5 FL (7.0-11.0) Neutrophils (%) (Auto) 77.1 % (16.0-70.0) 71.1 % (16.0-70.0) Lymphocytes (%) (Auto) 13.6 % (9.0-44.0) 11.8 % (9.0-44.0) Monocytes (%) (Auto) 8.0 % (0.0-8.0) 16.7 % (0.0-8.0) Eosinophils (%) (Auto) 0.9 % (0.0-4.0) 0.1 % (0.0-4.0) Basophils (%) (Auto) 0.4 % (0.0-2.0) 0.3 % (0.0-2.0) Neutrophils # (Auto) 8.3 TH/MM3 (1.8-7.7) 6.6 TH/MM3 (1.8-7.7) Lymphocytes # (Auto) 1.5 TH/MM3 (1.0-4.8) 1.1 TH/MM3 (1.0-4.8) Monocytes # (Auto) 0.9 TH/MM3 (0-0.9) 1.6 TH/MM3 (0-0.9) Eosinophils # (Auto) 0.1 TH/MM3 (0-0.4) 0.0 TH/MM3 (0-0.4) Basophils # (Auto) 0.0 TH/MM3 (0-0.2) 0.0 TH/MM3 (0-0.2) CBC Comment DIFF FINAL DIFF FINAL Differential Comment Prothrombin Time 11.8 SEC (9.8-11.6) Prothromb Time International Ratio 1.1 RATIO Activated Partial Thromboplast Time 23.7 SEC (24.3-30.1) Urine Color YELLOW (YELLW/STRAW) Urine Turbidity HAZY (CLEAR) Urine pH 6.0 (5.0-8.5) Urine Specific [place] 1.023 (1.002-1.035) Urine Protein TRACE mg/dL (NEG-TRACE) Urine Glucose (UA) NEG mg/dL (NEG) Urine Ketones NEG mg/dL (NEG) Urine Occult Blood SMALL (NEG) Urine Nitrite POS (NEG) Urine Bilirubin NEG (NEG) Urine Urobilinogen LESS THAN 2.0 MG/DL (LESS Urine Leukocyte Esterase LARGE (NEG) Urine RBC 18 /hpf (0-3) Urine WBC /hpf (0-5) Urine Transitional Epithelial Cells <1 /hpf (NONE) Urine Bacteria FEW /hpf (NONE) Urine Hyaline Casts 1 /lpf (RARE) Microscopic Urinalysis Comment CULTURE INDICATED Blood Urea Nitrogen 23 MG/DL (7-18) 20 MG/DL (7-18) 12 MG/DL (7-18) Creatinine 0.87 MG/DL (0.50-1.00) 0.90 MG/DL (0.50-1.00) 0.62 MG/DL (0.50-1.00) Random Glucose 99 MG/DL (74-106) 126 MG/DL (74-106) 108 MG/DL (74-106) Calcium Level 8.3 MG/DL (8.5-10.1) 8.4 MG/DL (8.5-10.1) 8.0 MG/DL (8.5-10.1) Sodium Level 141 MEQ/L (136-145) 143 MEQ/L (136-145) 140 MEQ/L (136-145) Potassium Level 4.4 MEQ/L (3.5-5.1) 4.4 MEQ/L (3.5-5.1) 3.9 MEQ/L (3.5-5.1) Chloride Level 108 MEQ/L (98-107) 108 MEQ/L (98-107) 108 MEQ/L (98-107) Carbon Dioxide Level 26.8 MEQ/L (21.0-32.0) 26.8 MEQ/L (21.0-32.0) 24.5 MEQ/L (21.0-32.0) Anion Gap 6 MEQ/L (5-15) 8 MEQ/L (5-15) 8 MEQ/L (5-15) Estimat Glomerular Filtration Rate 66 ML/MIN (>89) 63 ML/MIN (>89) 97 ML/MIN (>89) Phenytoin (Dilantin) Level 26.0 MCG/ML (10.0-20.0) 30.1 MCG/ML (10.0-20.0) Valproic Acid (Depakene) Level 62 MCG/ML (50-100) Total Protein 7.1 GM/DL (6.4-8.2) Albumin 3.3 GM/DL (3.4-5.0) Phosphorus Level 3.7 MG/DL (2.5-4.9) Magnesium Level 2.0 MG/DL (1.5-2.5) 1.8 MG/DL (1.5-2.5) Alkaline Phosphatase 84 U/L (45-117) Aspartate Amino Transf (AST/SGOT) 28 U/L (15-37) Alanine Aminotransferase (ALT/SGPT) 48 U/L (10-53) Total Bilirubin 0.3 MG/DL (0.2-1.0) Nasal Screen MRSA (PCR) MRSA DETECTED (NOT DETECT) Result Diagram: 05/01/17 0346 05/02/17 0407 Microbiology Microbiology Date/Time Source Procedure Growth Status 04/30/17 16:40 Urine Clean Catch Urine Culture - Final Providencia Stuartii Complete Imaging Last Impressions Head CT 05/01/17 0600 Signed Impressions: Service Date/Time: Monday, May 01, 2017 06:03 - CONCLUSION: Involving intracranial injuries and hemorrhage as described. No new acute findings. Left temporomandibular joint fracture/dislocation. Ernesto Gill MD Pelvis X-Ray 04/30/17 1525 Signed Impressions: Service Date/Time: Sunday, April 30, 2017 15:51 - CONCLUSION: The bony pelvic ring is grossly intact. David Bhandari MD Chest X-Ray 04/30/17 1525 Signed Impressions: Service Date/Time: Sunday, April 30, 2017 15:47 - CONCLUSION: The lungs are clear. David Bhandari MD Cervical Spine CT 04/30/17 1525 Signed Impressions: Service Date/Time: Sunday, April 30, 2017 17:11 - CONCLUSION: No acute findings. Stable degenerative changes. David Bhandari MD Patient/Family Conference Present at Family Conference: Telephone conversation with brother Julio cuevas, niece Jessica Matthewandres and sister Ania Little. Family Conference Time (mins): 41 Family Conference Location: Telephone Issues Discussed: * Palliative care role, purpose, approach * Additional medical, psychosocial, and spiritual history * Patients general health, functional status, and cognitive changes in the months leading up to the current hospitalization * Patient/family understanding of the current medical problems * Patient/family understanding of prognosis * Patients goals of care as best understood from advance directives and/or conversations and/or values * Current medical treatment options and benefits/burdens of those options * Likely scenarios comparing ongoing aggressive care with a transition to comfort measures only * Questions answered to the best of my ability * Palliative care contact information provided Assessment and Plan Disease Oriented Problem List: (1) Subarachnoid hemorrhage (2) Seizure disorder (3) HTN (hypertension) (4) Schizophrenia (5) Altered mental status Symptom Scale: (1) Debility 0-10 Scale: Unable to quantify Pertinent Non-Medical Issues Psychosocial: Patient is a long-term resident of [facility]. As per patient's brother and sister, patient is not , did not have any children. Both parents are . One brother Julio Denise , sister Ania Little, brother William Denise -. Spiritual: Jew yony Legal: Unknown if advance directives completed. Ethical issues impacting care: Patient with significant psychiatric history, alcoholism and homelessness. Unable to participate in medical decision-making secondary to clinical condition. Siblings serving as healthcare proxy decision maker. . Important Contacts Brothdina Cuevas -cell , Home Sister Ania Little Niece Lisette Tay . Prognosis Mrs. Hernandez is a 61-year-old female with a medical history significant for seizure disorder, schizoaffective-bipolar disorder, hypertension, urinary incontinence, anxiety, arthritis.Patient arrived to ED via EMS on 04/30/17 for evaluation after a fall with loss of consciousness. Patient found with acute left subdural hematoma with right occipital intraventricular blood and 7 mm midline shift towards the right. Overall prognosis appears poor. . Code Status: Full Code Plan * CODE STATUS: Full code by default at this time. Ongoing goals of care conversation with patient's family, they were located and notified of patient's critical condition in 05/02/17. * HEALTHCARE DECISION-MAKING: Patient does not retain the ability to participate in medical decision-making giving clinical condition, AMS, deteriorating neurological condition. As per patient's brother and sister, patient is not , did not have any children. Both parents are . One brother Julio Cuevas, sister Ania Little, brother William Cuevas - . As per [place] statute, healthcare proxy decision maker falls to the majority of patient's siblings, for which she has 2: brother Julio Cuevas, sister Ania Little. Brother Julio electing to participate in medical decision- making, pending return call from sister Ania. * GOALS OF CARE: Ongoing goals of care conversation with patient's family, they were located and notified of patient's critical condition on 05/02/17 -late evening. Patient's brother Julio to visit patient tonight or tomorrow morning. Pending return telephone call from sister Ania Little. Reviewed deteriorating neurological status and overall poor prognosis for long-term survival. * SYMPTOMS: =AMS, secondary to brain bleed. Neurosurgery following. * Case discussed with Dr. Mckeon and bedside RN. * Palliative care contact information has been provided to patient's family. * Palliative care will continue to follow-up for further clarifications of goals of care as patient's clinical course continues to evolve. . Time Spent Total Floor Time (mins): 88 (Total time to include review and summarization of available medical records to include multiple prior hospitalizations, physical exam, telephone conversation with patient's brother, case discussion with Dr. Mckeon and bedside RN.) >50% Counseling/Coord of Care: Yes Thank you for the opportunity to participate in the care of Ms. Hernandez. Attestation To help prompt me to consider important information that might be impacting today's encounter and assessment, information from prior notes written by myself or my colleagues may have been "brought forward" into today's note. My signature on this note, however, is an attestation that I personally performed the exam, history, and/or decision-making noted today, and, unless otherwise indicated, the interactions with patient, family, and staff as well as the review of records all occurred today. I also attest that the listed assessment and stated plan reflect my best clinical judgment today based on the combination of historical information, prior notes, and today's exam/ interactions. When time spent is documented, it refers only to time spent today by the signer, or if indicated, combined time spent today by collaborating physician/nurse practitioner. Janine Ardon May 02, 2017 18:33
[2017-05-02] MEDS: cefTRIAXone INJ 1,000 MG in SODIUM CHLORIDE 0.9% INJ 100 ML IV SCH (20:32)
[2017-05-03] VITALS (13 sets, daily range): BP systolic 66–178; BP diastolic 68–91; PULSE 72–95; RESP 13–26; TEMP 97.8–98.9; O2SAT 95–100
[2017-05-03] MEDS: INSULIN NovoLIN REGULAR SUPPLEMENTAL SCALE SQ SCH ×5 (04:00→20:00)
[2017-05-03] MEDS: CHLORHEXIDINE GLUCONATE 2 % 1 PACK (2 CLOTHS) TOP SCH (04:00)
[2017-05-03] MEDS: RESP: ALBUTEROL 2.5 MG/IPRATROPIUM 0.5 MG NEB (SCH) INH ×4 (04:03→22:03)
[2017-05-03] MEDS: ENALAPRILAT 1.25 MG/ML VIAL IV PUSH PRN (04:12)
[2017-05-03] MEDS: SODIUM CHLOR 0.9% 1000 ML INJ 1,000 ML IV SCH ×2 (05:16→22:18)
[2017-05-03 05:40] LABS: BICARBONATE 24.8 MEQ/L (21.0-32.0); MAGNESIUM 1.8 MG/DL (1.5-2.5); POTASSIUM 4.1 MEQ/L (3.5-5.1)
--- NOTE | 2017-05-03 07:01 | HHI.CCPN ---
Subjective Remarks/Hospital Course The patient is 61-year-old female with past medical history of seizure disorder , schizophrenia, hypertension who presented to [facility] ED from a local nursing facility with complaints of headache and status post fall. Per ED records the patient was not feeling well and got up and walked to the bathroom and fell. snf staff reported loss of consciousness for unknown amount of time. When she woke up she had repetitive speech and EMS was called. The patient was brought into the ED for further evaluation and on arrival she was awake, however, she was not voicing or answering any questions. The patient is aphasic. In the ED she had a blood pressure 134/71. CT scan of the brain showed large right scalp hematoma, left subdural hematoma, multifocal left parietal parenchymal hemorrhages, right occipital intraventricular blood and 7 mm midline shift toward the right. Cervical spine CT was obtained and showed no evidence of any acute findings. In the ED she was given Ativan 1 mg IM x1. The patient was seen by Dr. Sahu from neurosurgery and planned to repeat CT brain in a.m. When seen the patient was on room air oxygen. 05/01: Opens eyes, protects airway, no additional seizures last night. 05/02: Generally deteriorating neurological status. JUAN is a brother who is homeless. We may try to get in communication with JUAN concerning long-term planning, code status. 11.03: More animated today but quite confused still. BP 180s. Palliative Care service has seen for help with decision making. Objective Vital Signs Date Time Temp Pulse Resp B/P (MAP) Pulse Ox O2 Delivery O2 Flow Rate FiO2 05/03/17 06:00 95 05/03/17 04:04 99 21 05/03/17 04:00 98.5 20 178/81 (113) 04/30/17 15:49 Room Air Intake and Output 05/03/17 05/03/17 05/04/17 08:00 16:00 00:00 Intake Total 1021 ml Balance 1021 ml Result Diagram: 05/01/17 0346 05/03/17 0348 Other Results Microbiology Date/Time Source Procedure Growth Status 04/30/17 16:40 Urine Clean Catch Urine Culture - Final Providencia Stuartii Complete Objective Remarks PHYSICAL EXAMINATION GENERAL: A 61-year-old female HEENT: Atraumatic, normocephalic. Conjunctiva pink. Nonicteric sclerae. Oral mucosa within normal. NECK: Supple. Trachea midline. Airway widely patent. CARDIOVASCULAR: Regular rate and rhythm. Normal S1-S2. No murmurs, rubs or gallops noted. LUNGS: Clear, comfortable. No rales or wheezing. ABDOMEN: Soft, nontender, no distension. Positive bowel sounds. EXTREMITIES: No cyanosis, clubbing or edema. Warm, well perfused. NEUROLOGIC: Lethargic. Speech garbled, incoherent. Moves both arms and legs with strength. Pupils equal, round, reactive to light and accommodation. Extraocular muscles intact. A/P Assessment and Plan IMPRESSION: 1. Acute left subdural hematoma with right occipital intraventricular blood and 7 mm midline shift toward the right. 2. Status post fall. 3. Hypertension. 4. History of seizure disorder. 5. Urinary tract infection. 6. History of schizophrenia. RECOMMENDATIONS: 1. Monitor neuro status closely and avoid any sedatives. Continue with antiseizure meds. The patient is on Vimpat 200 mg b.i.d. Keppra, Depakote, Topamax and Dilantin 200 mg IV q.8h. Will check Dilantin and Depakote level. 2. Repeat CT brain now. 3. Oxygen p.r.n. to maintain sats above 92%. 4. Bronchodilators in the form of DuoNeb and continue with Symbicort and Spiriva as ordered. 5. Monitor heart rate and blood pressure closely. Maintain systolic blood pressure less than 150. 6. Continue with Lopressor 25 mg b.i.d. and Vasotec 1.25 mg IV q. 6-hour p.r.n. for systolic blood pressure greater than 150 or diastolic blood pressure greater than 90. Add PO BP meds. 7. Monitor renal function Is and Os and electrolyte replacement as needed. 8. Start the patient on Rocephin 1 gram daily for UTI and follow up on urine cultures. Monitor for signs infections which include fever and WBC. 9. PO meds with apple sauce Continue with Protonix 40 mg daily. 10. Sliding scale insulin with Accu-Cheks for glycemic control if needed. 11. Monitor CBC. 12. GI prophylaxis with Protonix 40 mg daily and DVT prophylaxis with SCDs. Chemical anticoagulation prophylaxis contraindicated in the setting of [employer] bleed. Overall impression: Stable respiratory and hemodynamic status. Deteriorating mental status. Palliative Care service has seen. Jarvis Mckeon MD May 03, 2017 07:01
[2017-05-03] MEDS ORDERED: hydrALAZINE HCL 25 MG TAB PO PRN (07:15)
[2017-05-03] MEDS ORDERED: LABETALOL HCL 100 MG/20 ML VIAL IV PUSH PRN (08:00)
--- NOTE | 2017-05-03 08:27 | HHI.NSPN ---
(Estuardo Arellano) History Chief Complaint: Unable to obtain due to patient's mental condition. (Estuardo Arellano) Interval History 04/30: The patient is a 61-year-old female who resides at a local [facility] with history of schizoaffective disorder, seizures, status post CVA. According to report from [facility], she was not feeling well this afternoon, she ambulated to the bathroom and fell. There was loss of consciousness for an unknown period of time. No seizures reported today. She reportedly had repetitive speech initially upon regaining consciousness. Discussion with nursing staff in the emergency room indicates that the patient was able to say her name intermittently upon arrival in the emergency room. She has not been following commands. 05/01: This morning the patient is awake and fairly alert. She watches this practitioner as he moves about the room. She does verbalise but her speech is garbled and incoherent. She is noted to have tremors to both upper extremities and moves them spontaneously. She went for a repeat CT brain this morning. 05/02: This morning the patient is seen in rounds with Dr. Sahu. The patient is awake and has nonsensical speech. Nursing reports that she keeps saying the word "tarpon." 113: When seen the patient is awake and fairly alert. She is fidgeting about in bed picking at things. She does track with her eyes. Her only verbalisation is a slight grunt/moan. (Estuardo Arellano) System Review Comments Unable to obtain due to patient's mental condition. (Estuardo Arellano) Exam Results 05/01/17 05/01/17 05/02/17 05/02/17 05/03/17 05/03/17 06:00 18:00 06:00 18:00 06:00 18:00 Intake Total 200 ml 1317 ml 1321 ml 955 ml 1221 ml Output Total 0 ml Balance 200 ml 1317 ml 1321 ml 955 ml 1221 ml Intake Oral 0 ml 120 ml 60 ml IV Total 200 ml 1317 ml 1201 ml 955 ml 1161 ml Output Stool Total 0 ml # Voids 3 4 6 4 4 # Bowel Movements 0 0 0 0 Vital Signs Date Time Temp Pulse Resp B/P (MAP) Pulse Ox O2 Delivery O2 Flow Rate FiO2 05/03/17 06:00 95 05/03/17 04:04 99 21 05/03/17 04:00 98.5 84 20 178/81 (113) 100 05/03/17 04:00 84 05/03/17 02:00 82 05/03/17 00:00 72 05/03/17 00:00 98.9 72 13 155/68 (97) 99 05/02/17 22:00 76 05/02/17 20:10 100 21 05/02/17 20:00 99.3 68 16 156/67 (96) 100 05/02/17 20:00 68 05/02/17 18:00 77 05/02/17 16:00 69 05/02/17 16:00 98.5 69 14 144/66 (92) 100 05/02/17 14:00 72 05/02/17 12:00 98.4 73 15 142/65 (90) 94 05/02/17 12:00 73 05/02/17 10:00 74 05/02/17 08:00 79 05/02/17 08:00 98.4 78 24 158/74 (102) 99 05/02/17 06:00 72 05/02/17 04:00 98.8 78 18 131/61 (84) 96 05/02/17 04:00 78 05/02/17 03:08 99 05/02/17 02:00 70 05/02/17 00:00 98.3 70 18 166/78 (107) 98 05/02/17 00:00 70 05/01/17 23:19 97 05/01/17 22:00 74 05/01/17 20:00 76 05/01/17 20:00 98.5 76 17 141/65 (90) 100 05/01/17 18:00 79 22 126/66 (86) 97 05/01/17 17:00 75 19 122/60 (80) 98 05/01/17 16:00 98.1 70 17 116/57 (76) 99 05/01/17 15:00 72 22 165/71 (102) 100 05/01/17 15:00 72 05/01/17 14:00 67 17 124/60 (81) 99 05/01/17 13:00 76 22 154/72 (99) 96 05/01/17 12:00 98.7 76 22 154/72 (99) 96 05/01/17 11:00 75 22 163/78 (106) 100 05/01/17 10:00 83 17 158/76 (103) 98 05/01/17 09:00 84 20 155/74 (101) 98 05/01/17 08:00 99.1 82 18 159/77 (104) 98 05/01/17 07:00 81 05/01/17 07:00 85 19 135/72 (93) 97 05/01/17 04:00 94 05/01/17 04:00 99.0 94 20 128/59 (82) 98 05/01/17 00:00 81 05/01/17 00:00 99.8 81 20 99/50 (66) 97 04/30/17 22:00 74 04/30/17 20:00 69 04/30/17 20:00 98.5 69 18 164/76 (105) 98 04/30/17 15:49 59 18 100 Room Air 04/30/17 15:18 59 18 100 Room Air 04/30/17 15:18 97.8 57 18 134/71 (92) 97 Room Air 04/30/17 15:12 97.8 61 18 134/71 (92) 100 (Estuardo Arellano) Physical Examination GENERAL: Awake & fairly alert, fidgeting about in bed picking at thing, no apparent distress. MUSCULOSKELETAL: HANSEN spontaneously w/o difficulty. NEUROLOGICAL: Awake & fairly alert, GCS 11 (E4 V2 M5). Eyes open spontaneously. PERRLA 3 mm brisk. Does track. Nonverbal except for occasion grunt/moan. Does not follow commands. Moving all extremities spontaneously. (Estuardo Arellano) Lab, Micro, Other Results Recent Impressions Head CT 05/01/17 0600 Signed Impressions: Service Date/Time: Monday, May 01, 2017 06:03 - CONCLUSION: Involving intracranial injuries and hemorrhage as described. No new acute findings. Left temporomandibular joint fracture/dislocation. Ernesto Gill MD Pelvis X-Ray 04/30/17 1525 Signed Impressions: Service Date/Time: Sunday, April 30, 2017 15:51 - CONCLUSION: The bony pelvic ring is grossly intact. David Bhandari MD Head CT 04/30/17 1525 Signed Impressions: Service Date/Time: Sunday, April 30, 2017 17:11 - CONCLUSION: Contrecoup injury with large right scalp hematoma, left subdural hematoma, multifocal left parietal parenchymal hemorrhages, right occipital intraventricular blood, and 7 mm midline shift towards the right. No skull fracture seen.. David Bhandari MD Chest X-Ray 04/30/17 152 Signed Impressions: Service Date/Time: Sunday, April 30, 2017 15:47 - CONCLUSION: The lungs are clear. David Bhandari MD Cervical Spine CT 04/30/17 1525 Signed Impressions: Service Date/Time: Sunday, April 30, 2017 17:11 - CONCLUSION: No acute findings. Stable degenerative changes. Daivd Bhandari MD Laboratory Tests Test 04/30/17 16:40 05/01/17 03:46 05/01/17 04:40 05/02/17 04:07 White Blood Count 10.8 TH/MM3 9.3 TH/MM3 Red Blood Count 4.87 MIL/MM3 4.82 MIL/MM3 Hemoglobin 15.2 GM/DL 15.1 GM/DL Hematocrit 45.6 % 45.5 % Mean Corpuscular Volume 93.6 FL 94.4 FL Mean Corpuscular Hemoglobin 31.3 PG 31.2 PG Mean Corpuscular Hemoglobin Concent 33.4 % 33.1 % Red Cell Distribution Width 13.9 % 14.1 % Platelet Count 157 TH/MM3 163 TH/MM3 Mean Platelet Volume 8.9 FL 8.5 FL Neutrophils (%) (Auto) 77.1 % 71.1 % Lymphocytes (%) (Auto) 13.6 % 11.8 % Monocytes (%) (Auto) 8.0 % 16.7 % Eosinophils (%) (Auto) 0.9 % 0.1 % Basophils (%) (Auto) 0.4 % 0.3 % Neutrophils # (Auto) 8.3 TH/MM3 6.6 TH/MM3 Lymphocytes # (Auto) 1.5 TH/MM3 1.1 TH/MM3 Monocytes # (Auto) 0.9 TH/MM3 1.6 TH/MM3 Eosinophils # (Auto) 0.1 TH/MM3 0.0 TH/MM3 Basophils # (Auto) 0.0 TH/MM3 0.0 TH/MM3 CBC Comment DIFF FINAL DIFF FINAL Differential Comment Prothrombin Time 11.8 SEC Prothromb Time International Ratio 1.1 RATIO Activated Partial Thromboplast Time 23.7 SEC Urine Color YELLOW Urine Turbidity HAZY Urine pH 6.0 Urine Specific Winfred 1.023 Urine Protein TRACE mg/dL Urine Glucose (UA) NEG mg/dL Urine Ketones NEG mg/dL Urine Occult Blood SMALL Urine Nitrite POS Urine Bilirubin NEG Urine Urobilinogen LESS THAN 2.0 MG/DL Urine Leukocyte Esterase LARGE Urine RBC 18 /hpf Urine WBC /hpf Urine Transitional Epithelial Cells <1 /hpf Urine Bacteria FEW /hpf Urine Hyaline Casts 1 /lpf Microscopic Urinalysis Comment CULTURE INDICATED Blood Urea Nitrogen 23 MG/DL 20 MG/DL 12 MG/DL Creatinine 0.87 MG/DL 0.90 MG/DL 0.62 MG/DL Random Glucose 99 MG/DL 126 MG/DL 108 MG/DL Calcium Level 8.3 MG/DL 8.4 MG/DL 8.0 MG/DL Sodium Level 141 MEQ/L 143 MEQ/L 140 MEQ/L Potassium Level 4.4 MEQ/L 4.4 MEQ/L 3.9 MEQ/L Chloride Level 108 MEQ/L 108 MEQ/L 108 MEQ/L Carbon Dioxide Level 26.8 MEQ/L 26.8 MEQ/L 24.5 MEQ/L Anion Gap 6 MEQ/L 8 MEQ/L 8 MEQ/L Estimat Glomerular Filtration Rate 66 ML/MIN 63 ML/MIN 97 ML/MIN Phenytoin (Dilantin) Level 26.0 MCG/ML 30.1 MCG/ML Valproic Acid (Depakene) Level 62 MCG/ML Total Protein 7.1 GM/DL Albumin 3.3 GM/DL Phosphorus Level 3.7 MG/DL Magnesium Level 2.0 MG/DL 1.8 MG/DL Alkaline Phosphatase 84 U/L Aspartate Amino Transf (AST/SGOT) 28 U/L Alanine Aminotransferase (ALT/SGPT) 48 U/L Total Bilirubin 0.3 MG/DL Nasal Screen MRSA (PCR) MRSA DETECTED Test 05/03/17 03:48 Blood Urea Nitrogen 8 MG/DL Creatinine 0.50 MG/DL Random Glucose 96 MG/DL Calcium Level 8.2 MG/DL Magnesium Level 1.8 MG/DL Sodium Level 138 MEQ/L Potassium Level 4.1 MEQ/L Chloride Level 104 MEQ/L Carbon Dioxide Level 24.8 MEQ/L Anion Gap 9 MEQ/L Estimat Glomerular Filtration Rate 125 ML/MIN Thyroid Stimulating Hormone 3rd Gen 0.827 uIU/ML Phenytoin (Dilantin) Level 15.5 MCG/ML (Estuardo Arellano) Medical Decision Making Impression and Plan Impression: 1. Acute left subdural hematoma with left frontotemporal hemorrhagic contusions. It is questionable whether she had some initial parenchymal hemorrhage leading to her fall, according to history. 2. Hypertension 3. History of schizoaffective-bipolar disorder The patient appears neurologically stable w/o any evident change. Reviewed labs from this morning. Plan: Discussed plan of care with Nursing. Primary management per Hospitalist/Plate Grinder. Continue to monitor in [facility]. Frequent neuro checks. Hold aspirin and statin medications Continue Dilantin Depakote and Kylie Diazra for seizure prophylaxis. Ulcer prophylaxis. Non-chemical DVT prophylaxis. Possible craniotomy on Saturday. Only family is a brother who is homeless and no way to contact. (Estuardo Arellano) Attending Statement The exam, history, and the medical decision-making described in the above note were completed with the assistance of the mid-level provider. I reviewed and agree with the findings presented. I attest that I had a [id number] encounter with the patient on the same day, and personally performed and documented my assessment and findings in the medical record. On my examination 05/03/2017, the patient appears comfortable. Awake and relatively alert Respirations clear, nonlabored She continues to have significant receptive and expressive speech deficit. She mumbles yes in response to nearly all questions however she is able to say her name when asked. She does not follow commands well but moves all extremities spontaneous with good strength Palliative care notes reviewed. The patient's family has elected comfort measures only. She is stable for transfer to the regular floor from a neurosurgical standpoint. No surgical intervention planned, in accordance with the family wishes. (Josue Sahu MD) Estuardo Arellano May 03, 2017 08:27 Josue Sahu MD May 03, 2017 20:34
[2017-05-03] MEDS: BUDESONIDE-FORMOTEROL 160/4.5 MCG INHALER INH SCH ×2 (08:49→23:40)
[2017-05-03] MEDS: ALBUTEROL SULFATE 90 MCG/ACT HFA 8 GM INHALER INH SCH ×4 (08:49→23:43)
[2017-05-03] MEDS: TIOTROPIUM BROMIDE 18 MCG INH INH SCH (08:49)
[2017-05-03] MEDS: MEMANTINE HCL 10 MG TAB PO SCH ×2 (08:50→22:22)
[2017-05-03] MEDS: TOPIRAMATE 100 MG TAB PO SCH ×2 (08:50→23:44)
[2017-05-03] MEDS: CITALOPRAM HYDROBROMIDE 40 MG TAB PO SCH (08:50)
[2017-05-03] MEDS: DIVALPROEX SODIUM DELAYED RELEASE 250 MG TAB PO SCH ×2 (08:50→22:15)
[2017-05-03] MEDS: LACOSAMIDE 100 MG TAB PO SCH ×2 (08:50→23:43)
[2017-05-03] MEDS: amLODIPine BESYLATE 5 MG TAB PO SCH (08:51)
[2017-05-03] MEDS: levETIRAcetam 1000 MG INJ 100 ML IV SCH ×2 (08:51→22:19)
[2017-05-03] MEDS: FOLIC ACID 1 MG TAB PO SCH (08:51)
[2017-05-03] MEDS: PANTOPRAZOLE SOD 40 MG DELAYED RELEASE TAB PO SCH (08:51)
[2017-05-03] MEDS: METOPROLOL TARTRATE 50 MG TAB PO SCH ×2 (08:51→22:22)
[2017-05-03] MEDS: DOCUSATE SODIUM 100 MG CAP PO SCH (08:51)
--- NOTE | 2017-05-03 13:04 | HHI.HCPN ---
Reason for visit a. To assist with evaluation and management of symptoms including: Mental status, agitation, debility. b. To assist medical decision maker(s) with: better understanding of current medical conditions; weighing benefits/burdens of medical treatment options; making medical treatment decisions. . Subjective/Interval History Mrs. Hernandez is a 61-year-old female with a medical history significant for seizure disorder, schizoaffective-bipolar disorder, hypertension, urinary incontinence, anxiety, arthritis. Patient arrived to ED via EMS on 04/30/17 for evaluation after a fall with loss of consciousness. Patient is a long-term resident of [facility] and [facility]. Upon ED arrival, patient was awake but not answering any questions. Head CT revealing contrecoup injury with large right scalp hematoma, left subdural hematoma, multifocal left. All parenchymal hemorrhages, right occipital intraventricular blood and 7 mm midline shift towards the right. Clinical course decompensating neurological status, agitation. Palliative care consulted for further clarifications of goals of care, locate next of kin. Patient seen in ICU, resting in bed in no acute distress. On 4 point soft restraints secondary to persistent agitation. Briefly opening eyes to verbal stimuli, not following any commands. Moaning, repeating "not good" multiple times. Patient remains afebrile, stable hemodynamically. Laboratory workup today revealing sodium 138, potassium 4.1, BUN/creatinine 8/0.50. No new images for review. Case discussed with Dr. Mckeon and bedside RN. . Family/friend interactions Family meeting. In attendance, patient's brother Julio Cuevas and sister Ania Little via telephone. Reviewed patient's past medical history, events leading to this hospitalization, clinical course and current medical management. Shared concerns of patient's decompensating neurological condition, overall poor prognosis given multiple underlying comorbidities to include psychiatric issues, physical deconditioning and acute left subdural hematoma with left frontotemporal hemorrhaic contusions. Reviewed neurosurgery options to include craniotomy. Introduced hospice philosophy and benefits. Patient's family electing to transition patient to comfort-directed care with hospice services given overall poor prognosis for long-term survival. Brother tells me that patient's quality of life is most important at this time given her condition and past medical and psychosocial history. All questions were answered in great detail. Ongoing emotional support and active listening provided. . Advance Directives Advance Directive Specifics Health Care Surrogate(s): As per patient's brother and sister, patient is not , did not have any children. Both parents are . One brother Julio Cuevas, sister Ania Little, brother William Cuevas is now . As per [place] statute, healthcare proxy decision maker falls to the majority of patient's siblings, for which she has 2. . Significant change in goals: Comfort directed care with hospice. . Objective Vital Signs Date Time Temp Pulse Resp B/P (MAP) Pulse Ox O2 Delivery O2 Flow Rate FiO2 05/03/17 12:33 98 21 05/03/17 12:00 98.3 76 26 135/76 (95) 100 05/03/17 12:00 76 05/03/17 10:00 90 05/03/17 08:00 98.1 87 24 169/77 (107) 100 05/03/17 08:00 87 05/03/17 06:00 95 05/03/17 04:04 99 21 05/03/17 04:00 98.5 84 20 178/81 (113) 100 05/03/17 04:00 84 05/03/17 02:00 82 05/03/17 00:00 72 05/03/17 00:00 98.9 72 13 155/68 (97) 99 05/02/17 22:00 76 05/02/17 20:10 100 21 05/02/17 20:00 99.3 68 16 156/67 (96) 100 05/02/17 20:00 68 05/02/17 18:00 77 05/02/17 16:00 69 05/02/17 16:00 98.5 69 14 144/66 (92) 100 05/02/17 14:00 72 Intake & Output 05/03/17 05/03/17 07:00 19:00 Intake Total 1221 ml Balance 1221 ml Intake Oral 60 ml IV Total 1161 ml # Voids 4 # Bowel Movements 0 Physical Exam CONSTITUTIONAL/GENERAL: This is an adequately nourished patient, in no apparent distress. TUBES/LINES/DRAINS: PIV's, SCDs. 4 x soft restraints. SKIN: No jaundice, rashes, or lesions. Ecchymoses on upper extremities. No wounds seen anteriorly. Skin temperature appropriate. Not diaphoretic. Right Periorbital ecchymosis. HEAD: Atraumatic. Normocephalic. EYES: Pupils equal and round and reactive. No scleral icterus. No injection or drainage. ENT: Hearing grossly normal. Nose without bleeding or purulent drainage. Moist oral mucosa, edentulous. NECK: Trachea midline. Supple, nontender. CARDIOVASCULAR: Regular rate and rhythm without murmurs, gallops, or rubs. No JVD. Peripheral pulses symmetric. RESPIRATORY/CHEST: Symmetric, unlabored respirations. Clear to auscultation. GASTROINTESTINAL: Abdomen soft, non-tender, nondistended. No guarding. Bowel sounds present. GENITOURINARY: Without palpable bladder distension. MUSCULOSKELETAL: Extremities without clubbing, cyanosis, or edema. No mottling or clubbing. NEUROLOGICAL: Briefly opening eyes to verbal stimuli. Repetitive speech, saying "not good" . Unable to tell me her name. Not following commands. Moves all extremities. PSYCHIATRIC: Unable to assess secondary to clinical condition. Periods of agitation. Diagnostic Tests Laboratory Laboratory Tests Test 04/30/17 16:40 05/01/17 03:46 05/01/17 04:40 05/02/17 04:07 White Blood Count 10.8 TH/MM3 (4.0-11.0) 9.3 TH/MM3 (4.0-11.0) Red Blood Count 4.87 MIL/MM3 (4.00-5.30) 4.82 MIL/MM3 (4.00-5.30) Hemoglobin 15.2 GM/DL (11.6-15.3) 15.1 GM/DL (11.6-15.3) Hematocrit 45.6 % (35.0-46.0) 45.5 % (35.0-46.0) Mean Corpuscular Volume 93.6 FL (80.0-100.0) 94.4 FL (80.0-100.0) Mean Corpuscular Hemoglobin 31.3 PG (27.0-34.0) 31.2 PG (27.0-34.0) Mean Corpuscular Hemoglobin Concent 33.4 % (32.0-36.0) 33.1 % (32.0-36.0) Red Cell Distribution Width 13.9 % (11.6-17.2) 14.1 % (11.6-17.2) Platelet Count 157 TH/MM3 (150-450) 163 TH/MM3 (150-450) Mean Platelet Volume 8.9 FL (7.0-11.0) 8.5 FL (7.0-11.0) Neutrophils (%) (Auto) 77.1 % (16.0-70.0) 71.1 % (16.0-70.0) Lymphocytes (%) (Auto) 13.6 % (9.0-44.0) 11.8 % (9.0-44.0) Monocytes (%) (Auto) 8.0 % (0.0-8.0) 16.7 % (0.0-8.0) Eosinophils (%) (Auto) 0.9 % (0.0-4.0) 0.1 % (0.0-4.0) Basophils (%) (Auto) 0.4 % (0.0-2.0) 0.3 % (0.0-2.0) Neutrophils # (Auto) 8.3 TH/MM3 (1.8-7.7) 6.6 TH/MM3 (1.8-7.7) Lymphocytes # (Auto) 1.5 TH/MM3 (1.0-4.8) 1.1 TH/MM3 (1.0-4.8) Monocytes # (Auto) 0.9 TH/MM3 (0-0.9) 1.6 TH/MM3 (0-0.9) Eosinophils # (Auto) 0.1 TH/MM3 (0-0.4) 0.0 TH/MM3 (0-0.4) Basophils # (Auto) 0.0 TH/MM3 (0-0.2) 0.0 TH/MM3 (0-0.2) CBC Comment DIFF FINAL DIFF FINAL Differential Comment Prothrombin Time 11.8 SEC (9.8-11.6) Prothromb Time International Ratio 1.1 RATIO Activated Partial Thromboplast Time 23.7 SEC (24.3-30.1) Urine Color YELLOW (YELLW/STRAW) Urine Turbidity HAZY (CLEAR) Urine pH 6.0 (5.0-8.5) Urine Specific [place] 1.023 (1.002-1.035) Urine Protein TRACE mg/dL (NEG-TRACE) Urine Glucose (UA) NEG mg/dL (NEG) Urine Ketones NEG mg/dL (NEG) Urine Occult Blood SMALL (NEG) Urine Nitrite POS (NEG) Urine Bilirubin NEG (NEG) Urine Urobilinogen LESS THAN 2.0 MG/DL (LESS Urine Leukocyte Esterase LARGE (NEG) Urine RBC 18 /hpf (0-3) Urine WBC /hpf (0-5) Urine Transitional Epithelial Cells <1 /hpf (NONE) Urine Bacteria FEW /hpf (NONE) Urine Hyaline Casts 1 /lpf (RARE) Microscopic Urinalysis Comment CULTURE INDICATED Blood Urea Nitrogen 23 MG/DL (7-18) 20 MG/DL (7-18) 12 MG/DL (7-18) Creatinine 0.87 MG/DL (0.50-1.00) 0.90 MG/DL (0.50-1.00) 0.62 MG/DL (0.50-1.00) Random Glucose 99 MG/DL (74-106) 126 MG/DL (74-106) 108 MG/DL (74-106) Calcium Level 8.3 MG/DL (8.5-10.1) 8.4 MG/DL (8.5-10.1) 8.0 MG/DL (8.5-10.1) Sodium Level 141 MEQ/L (136-145) 143 MEQ/L (136-145) 140 MEQ/L (136-145) Potassium Level 4.4 MEQ/L (3.5-5.1) 4.4 MEQ/L (3.5-5.1) 3.9 MEQ/L (3.5-5.1) Chloride Level 108 MEQ/L (98-107) 108 MEQ/L (98-107) 108 MEQ/L (98-107) Carbon Dioxide Level 26.8 MEQ/L (21.0-32.0) 26.8 MEQ/L (21.0-32.0) 24.5 MEQ/L (21.0-32.0) Anion Gap 6 MEQ/L (5-15) 8 MEQ/L (5-15) 8 MEQ/L (5-15) Estimat Glomerular Filtration Rate 66 ML/MIN (>89) 63 ML/MIN (>89) 97 ML/MIN (>89) Phenytoin (Dilantin) Level 26.0 MCG/ML (10.0-20.0) 30.1 MCG/ML (10.0-20.0) Valproic Acid (Depakene) Level 62 MCG/ML (50-100) Total Protein 7.1 GM/DL (6.4-8.2) Albumin 3.3 GM/DL (3.4-5.0) Phosphorus Level 3.7 MG/DL (2.5-4.9) Magnesium Level 2.0 MG/DL (1.5-2.5) 1.8 MG/DL (1.5-2.5) Alkaline Phosphatase 84 U/L (45-117) Aspartate Amino Transf (AST/SGOT) 28 U/L (15-37) Alanine Aminotransferase (ALT/SGPT) 48 U/L (10-53) Total Bilirubin 0.3 MG/DL (0.2-1.0) Nasal Screen MRSA (PCR) MRSA DETECTED (NOT DETECT) Test 05/03/17 03:48 Blood Urea Nitrogen 8 MG/DL (7-18) Creatinine 0.50 MG/DL (0.50-1.00) Random Glucose 96 MG/DL (74-106) Calcium Level 8.2 MG/DL (8.5-10.1) Magnesium Level 1.8 MG/DL (1.5-2.5) Sodium Level 138 MEQ/L (136-145) Potassium Level 4.1 MEQ/L (3.5-5.1) Chloride Level 104 MEQ/L (98-107) Carbon Dioxide Level 24.8 MEQ/L (21.0-32.0) Anion Gap 9 MEQ/L (5-15) Estimat Glomerular Filtration Rate 125 ML/MIN (>89) Thyroid Stimulating Hormone 3rd Gen 0.827 uIU/ML (0.358-3.740) Phenytoin (Dilantin) Level 15.5 MCG/ML (10.0-20.0) Result Diagram: 05/01/17 0346 05/03/17 0348 Microbiology Microbiology Date/Time Source Procedure Growth Status 04/30/17 16:40 Urine Clean Catch Urine Culture - Final Providencia Stuartii Complete Assessment and Plan Disease Oriented Problem List: (1) Subarachnoid hemorrhage (2) Seizure disorder (3) HTN (hypertension) (4) Schizophrenia (5) Altered mental status Symptom Scale: (1) Agitation 0-10 Scale: 7 (2) Debility 0-10 Scale: Unable to quantify Pertinent Non-Medical Issues Psychosocial: Patient is a long-term resident of [facility] and [facility]. As per patient's brother and sister, patient is not , did not have any children. Both parents are . One brother Julio Denise , sister Ania Little, brother William Denise -. Spiritual: Mormonism yony Legal: Unknown if advance directives completed. Ethical issues impacting care: Patient with significant psychiatric history, alcoholism and homelessness. Unable to participate in medical decision-making secondary to clinical condition. Siblings serving as healthcare proxy decision maker. . Important Contacts Brother Julio Cuevas -cell , Home Sister Ania Little Niece Lisette Tay . Prognosis Mrs. Hernandez is a 61-year-old female with a medical history significant for seizure disorder, schizoaffective-bipolar disorder, hypertension, urinary incontinence, anxiety, arthritis.Patient arrived to ED via EMS on 04/30/17 for evaluation after a fall with loss of consciousness. Patient found with acute left subdural hematoma with right occipital intraventricular blood and 7 mm midline shift towards the right. Overall prognosis appears poor. . Code Status: No Code Plan * CODE STATUS: Family electing no code. DNR/DNI. * HEALTHCARE DECISION-MAKING: Patient does not retain the ability to participate in medical decision-making giving clinical condition, AMS, deteriorating neurological condition. Secured copy of designation of healthcare surrogate signed 11/06/16 listing patient's brother Julio Denise as HCS. * GOALS OF CARE: Patient's siblings Julio/HCS and Ania electing to transition patient to comfort-directed care with hospice given overall poor prognosis for long-term survival. Patient with multiple underlying comorbidities to include psychiatric conditions, physical deconditioning and acute left subdural hematoma with left frontotemporal hemorrhagic contusions. Brother tells me that patient's quality of life is most important at this time given her condition and past medical and psychosocial history. Goal is to discharge patient to hospice care center for symptom management and end-of-life care. * SYMPTOMS: = Agitation/AMS, multifactorial. Underlying psychiatric conditions , exacerbated by brain bleed. Patient currently on 4 point restraint. Patient was continued on Celexa and Depakote. Patient may benefit from Haldol 1-2 mg PO /SL q4hr PRN agitation. * Case discussed with Dr. Mckeon, agrees with hospice referral. * Case discussed with bedside RN and hospice plan administrator Mariya. * Palliative care contact information has been provided to patient's family. . Time Spent Total Floor Time (mins): 44 (Total time to include review medical records, physical exam, goals of care conversation with patient's family, case discussion with Dr. Mckeon, bedside RN and hospice plan administrator.) >50% Counseling/Coord of Care: Yes Attestation To help prompt me to consider important information that might be impacting today's encounter and assessment, information from prior notes written by myself or my colleagues may have been "brought forward" into today's note. My signature on this note, however, is an attestation that I personally performed the exam, history, and/or decision-making noted today, and, unless otherwise indicated, the interactions with patient, family, and staff as well as the review of records all occurred today. I also attest that the listed assessment and stated plan reflect my best clinical judgment today based on the combination of historical information, prior notes, and today's exam/ interactions. When time spent is documented, it refers only to time spent today by the signer, or if indicated, combined time spent today by collaborating physician/nurse practitioner. Janine Ardon May 03, 2017 13:04
[2017-05-03] MEDS: PHENYTOIN INJ 100 MG/2 ML VIAL IV SCH ×2 (13:12→22:22)
[2017-05-03] MEDS: cefTRIAXone INJ 1,000 MG in SODIUM CHLORIDE 0.9% INJ 100 ML IV SCH (21:00)
[2017-05-04 00:03] VITALS: BP 192/94; PULSE 89; RESP 18; TEMP 97.6; O2SAT 98
[2017-05-04] MEDS: RESP: ALBUTEROL 2.5 MG/IPRATROPIUM 0.5 MG NEB (SCH) INH ×3 (03:56→15:56)
[2017-05-04] MEDS: CHLORHEXIDINE GLUCONATE 2 % 1 PACK (2 CLOTHS) TOP SCH (04:00)
[2017-05-04] MEDS: INSULIN NovoLIN REGULAR SUPPLEMENTAL SCALE SQ SCH ×6 (04:00→20:00)
[2017-05-04 05:05] VITALS: BP 185/97; PULSE 89; RESP 18; TEMP 98.9; O2SAT 96
[2017-05-04] MEDS: ENALAPRILAT 1.25 MG/ML VIAL IV PUSH PRN (05:37)
[2017-05-04] MEDS: PHENYTOIN INJ 100 MG/2 ML VIAL IV SCH (05:38)
[2017-05-04 08:00] VITALS: BP 141/81; PULSE 95; RESP 18; TEMP 98.1; O2SAT 97
[2017-05-04] MEDS: levETIRAcetam 1000 MG INJ 100 ML IV SCH ×2 (09:44→22:53)
[2017-05-04] MEDS: DOCUSATE SODIUM 100 MG CAP PO SCH (09:53)
[2017-05-04] MEDS: LACOSAMIDE 100 MG TAB PO SCH ×2 (09:53→23:02)
[2017-05-04] MEDS: MEMANTINE HCL 10 MG TAB PO SCH ×2 (09:53→23:03)
[2017-05-04] MEDS: TOPIRAMATE 100 MG TAB PO SCH ×2 (09:53→23:03)
[2017-05-04] MEDS: FOLIC ACID 1 MG TAB PO SCH (09:53)
[2017-05-04] MEDS: CITALOPRAM HYDROBROMIDE 40 MG TAB PO SCH (09:53)
[2017-05-04] MEDS: DIVALPROEX SODIUM DELAYED RELEASE 250 MG TAB PO SCH ×2 (09:53→23:03)
[2017-05-04] MEDS: amLODIPine BESYLATE 5 MG TAB PO SCH (09:53)
[2017-05-04] MEDS: METOPROLOL TARTRATE 50 MG TAB PO SCH ×2 (09:53→23:03)
[2017-05-04] MEDS: PANTOPRAZOLE SOD 40 MG DELAYED RELEASE TAB PO SCH (09:53)
[2017-05-04] MEDS: BUDESONIDE-FORMOTEROL 160/4.5 MCG INHALER INH SCH ×2 (10:05→23:03)
[2017-05-04] MEDS: TIOTROPIUM BROMIDE 18 MCG INH INH SCH (10:05)
[2017-05-04] MEDS: ALBUTEROL SULFATE 90 MCG/ACT HFA 8 GM INHALER INH SCH ×4 (10:05→23:03)
[2017-05-04 12:00] VITALS: BP 129/76; PULSE 69; RESP 18; TEMP 98.5; O2SAT 96
[2017-05-04] MEDS ORDERED: amLODIPine BESYLATE 5 MG TAB PO ONE (12:30)
--- NOTE | 2017-05-04 12:58 | HHI.PR ---
Subjective Remarks Follow-up for intracranial bleed and UTI Patient continues to be nonverbal. She does seem to track. Follow any commands. No acute events. Objective Vitals Vital Signs Date Time Temp Pulse Resp B/P (MAP) Pulse Ox O2 Delivery O2 Flow Rate FiO2 05/04/17 08:00 98.1 95 18 141/81 (101) 97 05/04/17 05:05 98.9 89 18 185/97 (126) 96 05/04/17 00:03 97.6 89 18 192/94 (126) 98 05/03/17 22:03 99 21 05/03/17 20:22 97.8 80 16 175/91 (119) 95 05/03/17 16:00 82 05/03/17 16:00 98.6 73 18 66/82 (77) 100 05/03/17 14:00 74 I/O 05/03/17 05/03/17 05/03/17 05/04/17 05/04/17 05/04/17 07:00 15:00 23:00 07:00 15:00 23:00 Intake Total 1021 ml 795 ml Balance 1021 ml 795 ml Intake Oral 60 ml IV Total 961 ml 795 ml # Voids 4 # Bowel Movements 0 Result Diagram: 05/01/17 0346 05/03/17 0348 Objective Remarks GENERAL: in NAD SKIN: Patient has a hematoma/bruise on her right temporal scleral area. CARDIOVASCULAR: Regular rate and rhythm without murmurs, gallops, or rubs. RESPIRATORY: Breath sounds equal bilaterally. No accessory muscle use. GASTROINTESTINAL: Abdomen soft, non-tender, nondistended. MUSCULOSKELETAL: No cyanosis, or edema. NEURO AAO X O. Patient is nonverbal and does track. She does not follow any commands. Medications and IVs Current Medications Lorazepam (Ativan Inj) 1 mg ONCE ONCE IM Last administered on 04/30/17 15:32 ; Start 04/30/17 at 15:30; Stop 04/30/17 at 15:31; Status DC Albuterol Sulfate (Proair Hfa Inh) 2 puff QID INH Last administered on 10:05; Start 04/30/17 at 21:00 Budesonide/ Formoterol Fumarate (Symbicort 160-4.5 Inh) 2 puff BID INH Last administered on 05/04/17 10:05; Start 04/30/17 at 21:00 Citalopram Hydrobromide (CeleXA) 40 mg DAILY PO Last administered on 05/04/17 09:53; Start 05/01/17 at 09:00 Divalproex Sodium (Depakote Dr) 750 mg Q12HR PO Last administered on 05/04/17 09:53; Start 04/30/17 at 21:00 Docusate Sodium (Colace) 100 mg DAILY PO Last administered on 05/04/17 09:53; Start 05/01/17 at 09:00 Folic Acid (Folate) 1 mg DAILY PO Last administered on 05/04/17 09:53; Start 05/01/17 at 09:00 Lacosamide (Vimpat) 200 mg BID PO Last administered on 05/04/17 09:53; Start 04/30/17 at 21:00 Levetriacetam (Keppra) 1,000 mg TID PO ; Start 05/01/17 at 09:00; Status UNV Memantine (Namenda) 10 mg BID PO Last administered on 05/04/17 09:53; Start 04/30/17 at 21:00 Metoprolol Tartrate (Lopressor) 25 mg BID PO Last administered on 05/02/17 20: 32; Start 04/30/17 at 21:00; Stop 05/03/17 at 07:05; Status DC Phenytoin (Dilantin) 300 mg Q12HR PO ; Start 04/30/17 at 21:00; Status UNV Tiotropium [place] (Spiriva Inh) 18 mcg DAILY INH Last administered on 10:05; Start 05/01/17 at 09:00 Topiramate (Topamax) 100 mg BID PO Last administered on 05/04/17 09:53; Start 04/30/17 at 21:00 Enalaprilat (Vasotec Inj) 1.25 mg Q6H PRN IV PUSH SBP>150, DBP>90 Last administered on 05/04/17 05:37; Start 04/30/17 at 18:30 Pantoprazole Sodium (Protonix) 40 mg DAILY PO Last administered on 05/04/17 09 :53; Start 05/01/17 at 09:00 Phenytoin Sodium (Dilantin Inj) 200 mg Q8HR IV ; Start 04/30/17 at 22:00; Stop 05/03/17 at 06:58; Status DC Levetriacetam 100 ml @ 400 mls/hr Q12HR IV Last administered on 05/04/17 09: 44; Start 04/30/17 at 21:00 Albuterol/ Ipratropium (Duoneb Neb) 1 ampule Q6HR NEB INH Last administered on 05/04/17 08:57; Start 04/30/17 at 18:45 Albuterol/ Ipratropium (Duoneb Neb) 1 ampule Q2HR NEB PRN INH WHEEZING; Start 04/30/17 at 18:45 Miscellaneous Information 1 Q361D XX ; Start 04/30/17 at 18:45 Chlorhexidine Gluconate (Chlorhexidine 2% Cloth) 3 pack Taper DAILY@04 TOP Last administered on 04/30/17 22:00; Start 05/01/17 at 04:00; Stop 04/27/18 at 03:59 Chlorhexidine Gluconate (Chlorhexidine 2% Cloth) 3 pack UNSCH PRN TOP HYGIENIC CARE; Start 04/30/17 at 18:45 Sodium Chloride 1,000 ml @ 40 mls/hr Q24H IV Last administered on 05/03/17 22 :18; Start 04/30/17 at 20:00 Dextrose (D50w (Vial) Inj) 50 ml UNSCH PRN IV PUSH HYPOGLYCEMIA-SEE COMMENTS; Start 04/30/17 at 18:45 Glucagon (Glucagon Inj) 1 mg UNSCH PRN OTHER HYPOGLYCEMIA-SEE COMMENTS; Start 04/30/17 at 18:45 Insulin Human Regular (NovoLIN R SUPPLEMENTAL SCALE) 1 Q4HR SQ Last administered on 05/02/17 20:31; Start 04/30/17 at 20:00 Ceftriaxone Sodium 1000 mg/ Sodium Chloride 100 ml @ 200 mls/hr Q24H IV Last administered on 05/03/17 21:00; Start 04/30/17 at 21:00 Phenytoin Sodium (Dilantin Inj) 150 mg Q8HR IV Last administered on 05/04/17 05:38; Start 05/03/17 at 14:00 Metoprolol Tartrate (Lopressor) 50 mg BID PO Last administered on 05/04/17 09: 53; Start 05/03/17 at 09:00 Labetalol HCl (Trandate Inj) 20 mg Q3HR PRN IV PUSH SBP > 150 Last administered on 05/03/17 08:22; Start 05/03/17 at 08:00 Hydralazine HCl (Apresoline) 50 mg Q8HR PRN PO SBP > 160 Last administered on 05/03/17 08:22; Start 05/03/17 at 07:15 Amlodipine Besylate (Norvasc) 5 mg DAILY PO Last administered on 05/04/17 09: 53; Start 05/03/17 at 09:00; Stop 05/04/17 at 12:28; Status DC Amlodipine Besylate (Norvasc) 5 mg ONCE ONCE PO ; Start 05/04/17 at 12:30; Stop 05/04/17 at 12:52; Status DC Amlodipine Besylate (Norvasc) 10 mg DAILY PO ; Start 05/05/17 at 09:00 A/P Assessment and Plan 61-year-old female who presented with fall and confusion Acute left subdural hematoma with right occipital intraventricular blood and 7 mm midline shift toward the right. -Being managed by neurosurgeon. -Very poor prognosis. Baseline mental status is deteriorating. -Per neurosurgeon team she may need a craniotomy on Saturday. Hypertension -Improved but continues to be uncontrolled. Will increase amlodipine to 10 mg by mouth daily. Continue to monitor and adjust accordingly. - Continue with when necessary medication Vasotec 1.25 mg IV q. 6-hour p.r.n. for systolic blood pressure greater than 150 or diastolic blood pressure greater than 90. History of seizure disorder. -Monitor neuro status closely and avoid any sedatives. Continue with antiseizure meds. The patient is on Vimpat 200 mg b.i.d. Keppra, Depakote, Topamax and Dilantin 200 mg IV q.8h. Will check Dilantin and Depakote level. Urinary tract infection. -urine cultures grew with Providencia stuartii History of schizophrenia. -Continue home medication. DVT prophylaxis -Chemical anticoagulation prophylaxis contraindicated in the setting of [employer] bleed. Discharge Planning Very poor prognosis. Palliative care is following. Sana Hankins MD May 04, 2017 12:58
[2017-05-04 16:00] VITALS: BP 117/73; PULSE 92; RESP 18; TEMP 99; O2SAT 95
[2017-05-04] MEDS: SODIUM CHLORIDE 0.9% IV SCH ×2 (16:25→23:20)
[2017-05-04] MEDS: PHENYTOIN IV SCH ×2 (16:25→23:20)
[2017-05-04 20:00] VITALS: BP 130/78; PULSE 107; RESP 22; TEMP 99.2; O2SAT 94
[2017-05-04] MEDS: cefTRIAXone INJ 1,000 MG in SODIUM CHLORIDE 0.9% INJ 100 ML IV SCH (22:56)
[2017-05-04] MEDS: SODIUM CHLOR 0.9% 1000 ML INJ 1,000 ML IV SCH (23:40)
[2017-05-05] VITALS (7 sets, daily range): BP systolic 120–150; BP diastolic 61–85; PULSE 86–104; RESP 20–22; TEMP 98.2–100; O2SAT 93–100
[2017-05-05] MEDS: INSULIN NovoLIN REGULAR SUPPLEMENTAL SCALE SQ SCH ×7 (00:09→23:44)
[2017-05-05] MEDS: CHLORHEXIDINE GLUCONATE 2 % 1 PACK (2 CLOTHS) TOP SCH (04:00)
[2017-05-05] MEDS: SODIUM CHLORIDE 0.9% IV SCH ×3 (06:45→23:35)
[2017-05-05] MEDS: PHENYTOIN IV SCH ×3 (06:45→23:35)
[2017-05-05] MEDS: PANTOPRAZOLE SOD 40 MG DELAYED RELEASE TAB PO SCH (09:00)
[2017-05-05] MEDS: BUDESONIDE-FORMOTEROL 160/4.5 MCG INHALER INH SCH ×2 (09:00→21:00)
[2017-05-05] MEDS: DOCUSATE SODIUM 100 MG CAP PO SCH (09:00)
[2017-05-05] MEDS: TOPIRAMATE 100 MG TAB PO SCH ×3 (09:00→21:14)
[2017-05-05] MEDS: METOPROLOL TARTRATE 50 MG TAB PO SCH ×3 (09:00→21:16)
[2017-05-05] MEDS: DIVALPROEX SODIUM DELAYED RELEASE 250 MG TAB PO SCH ×3 (09:00→21:13)
[2017-05-05] MEDS: CITALOPRAM HYDROBROMIDE 40 MG TAB PO SCH (09:00)
[2017-05-05] MEDS: TIOTROPIUM BROMIDE 18 MCG INH INH SCH (09:00)
[2017-05-05] MEDS: FOLIC ACID 1 MG TAB PO SCH (09:00)
[2017-05-05] MEDS: MEMANTINE HCL 10 MG TAB PO SCH ×3 (09:00→21:14)
[2017-05-05] MEDS: ALBUTEROL SULFATE 90 MCG/ACT HFA 8 GM INHALER INH SCH ×4 (09:00→21:00)
[2017-05-05] MEDS: LACOSAMIDE 100 MG TAB PO SCH ×3 (09:00→21:16)
[2017-05-05] MEDS: levETIRAcetam 1000 MG INJ 100 ML IV SCH ×3 (09:34→21:12)
--- NOTE | 2017-05-05 10:43 | HHI.PR ---
Subjective Remarks Follow-up for intracranial bleed At baseline patient is nonverbal and does not follow any commands. Patient's nurse and charge nurse concerned that patient is becoming more lethargic. Patient opens eyes to noxious stimuli. It was difficult for patient to keep her eyes open. Otherwise she does not follow any commands with is the same as her baseline prior. Objective Vitals Vital Signs Date Time Temp Pulse Resp B/P (MAP) Pulse Ox O2 Delivery O2 Flow Rate FiO2 05/05/17 08:00 100.0 91 21 132/68 (89) 93 05/05/17 04:00 98.8 101 21 135/75 (95) 94 05/05/17 00:02 98.2 104 22 140/85 (103) 95 05/04/17 20:00 99.2 107 22 130/78 (95) 94 05/04/17 16:00 99.0 92 18 117/73 (88) 95 05/04/17 12:00 98.5 69 18 129/76 (93) 96 I/O 05/04/17 05/04/17 05/04/17 05/05/17 05/05/17 05/05/17 07:00 15:00 23:00 07:00 15:00 23:00 Intake Total 795 ml 120 ml 1353 ml Balance 795 ml 120 ml 1353 ml Intake Oral 120 ml 100 ml IV Total 795 ml 1253 ml # Voids 2 1 # Bowel Movements 1 0 Result Diagram: 05/01/17 0346 05/03/17 0348 Objective Remarks GENERAL: in NAD HEENT: PEARR[place] SKIN: Patient has a hematoma/bruise on her right temporal scleral area. CARDIOVASCULAR: Regular rate and rhythm without murmurs, gallops, or rubs. RESPIRATORY: Breath sounds equal bilaterally. No accessory muscle use. GASTROINTESTINAL: Abdomen soft, non-tender, nondistended. MUSCULOSKELETAL: No cyanosis, or edema. NEURO: Patient much more lethargic today. She only opens her eyes briefly with noxious stimuli. Area continues to not follow any commands which was her prior baseline. Medications and IVs Current Medications Lorazepam (Ativan Inj) 1 mg ONCE ONCE IM Last administered on 04/30/17t 15:32 ; Start 04/30/17 at 15:30; Stop 04/30/17 at 15:31; Status DC Albuterol Sulfate (Proair Hfa Inh) 2 puff QID INH Last administered on 23:03; Start 04/30/17 at 21:00 Budesonide/ Formoterol Fumarate (Symbicort 160-4.5 Inh) 2 puff BID INH Last administered on 05/04/17 23:03; Start 04/30/17 at 21:00 Citalopram Hydrobromide (CeleXA) 40 mg DAILY PO Last administered on 05/04/17 09:53; Start 05/01/17 at 09:00 Divalproex Sodium (Depakote Dr) 750 mg Q12HR PO Last administered on 05/04/17 23:03; Start 04/30/17 at 21:00 Docusate Sodium (Colace) 100 mg DAILY PO Last administered on 05/04/17 09:53; Start 05/01/17 at 09:00 Folic Acid (Folate) 1 mg DAILY PO Last administered on 05/04/17 09:53; Start 05/01/17 at 09:00 Lacosamide (Vimpat) 200 mg BID PO Last administered on 05/04/17 23:02; Start 04/30/17 at 21:00 Levetriacetam (Keppra) 1,000 mg TID PO ; Start 05/01/17 at 09:00; Status UNV Memantine (Namenda) 10 mg BID PO Last administered on 05/04/17 23:03; Start 04/30/17 at 21:00 Metoprolol Tartrate (Lopressor) 25 mg BID PO Last administered on 05/02/17 20: 32; Start 04/30/17 at 21:00; Stop 05/03/17 at 07:05; Status DC Phenytoin (Dilantin) 300 mg Q12HR PO ; Start 04/30/17 at 21:00; Status UNV Tiotropium Matthews (Spiriva Inh) 18 mcg DAILY INH Last administered on 10:05; Start 05/01/17 at 09:00 Topiramate (Topamax) 100 mg BID PO Last administered on 05/04/17 23:03; Start 04/30/17 at 21:00 Enalaprilat (Vasotec Inj) 1.25 mg Q6H PRN IV PUSH SBP>150, DBP>90 Last administered on 05/04/17 05:37; Start 04/30/17 at 18:30 Pantoprazole Sodium (Protonix) 40 mg DAILY PO Last administered on 05/04/17 09 :53; Start 05/01/17 at 09:00 Phenytoin Sodium (Dilantin Inj) 200 mg Q8HR IV ; Start 04/30/17 at 22:00; Stop 05/03/17 at 06:58; Status DC Levetriacetam 100 ml @ 400 mls/hr Q12HR IV Last administered on 05/04/17 22: 53; Start 04/30/17 at 21:00 Albuterol/ Ipratropium (Duoneb Neb) 1 ampule Q6HR NEB INH Last administered on 05/04/17 15:56; Start 04/30/17 at 18:45; Stop 05/04/17 at 18:44; Status DC Albuterol/ Ipratropium (Duoneb Neb) 1 ampule Q2HR NEB PRN INH WHEEZING; Start 04/30/17 at 18:45 Miscellaneous Information 1 Q361D XX ; Start 04/30/17 at 18:45 Chlorhexidine Gluconate (Chlorhexidine 2% Cloth) 3 pack Taper DAILY@04 TOP Last administered on 04/30/17 22:00; Start 05/01/17 at 04:00; Stop 04/27/18 at 03:59 Chlorhexidine Gluconate (Chlorhexidine 2% Cloth) 3 pack UNSCH PRN TOP HYGIENIC CARE; Start 04/30/17 at 18:45 Sodium Chloride 1,000 ml @ 40 mls/hr Q24H IV Last administered on 05/04/17 23 :40; Start 04/30/17 at 20:00 Dextrose (D50w (Vial) Inj) 50 ml UNSCH PRN IV PUSH HYPOGLYCEMIA-SEE COMMENTS; Start 04/30/17 at 18:45 Glucagon (Glucagon Inj) 1 mg UNSCH PRN OTHER HYPOGLYCEMIA-SEE COMMENTS; Start 04/30/17 at 18:45 Insulin Human Regular (NovoLIN R SUPPLEMENTAL SCALE) 1 Q4HR SQ Last administered on 05/02/17 20:31; Start 04/30/17 at 20:00 Ceftriaxone Sodium 1000 mg/ Sodium Chloride 100 ml @ 200 mls/hr Q24H IV Last administered on 05/04/17 22:56; Start 04/30/17 at 21:00 Phenytoin Sodium (Dilantin Inj) 150 mg Q8HR IV Last administered on 05/04/17 05:38; Start 05/03/17 at 14:00; Stop 05/04/17 at 15:33; Status DC Metoprolol Tartrate (Lopressor) 50 mg BID PO Last administered on 05/04/17 23: 03; Start 05/03/17 at 09:00 Labetalol HCl (Trandate Inj) 20 mg Q3HR PRN IV PUSH SBP > 150 Last administered on 05/03/17 08:22; Start 05/03/17 at 08:00 Hydralazine HCl (Apresoline) 50 mg Q8HR PRN PO SBP > 160 Last administered on 05/03/17 08:22; Start 05/03/17 at 07:15 Amlodipine Besylate (Norvasc) 5 mg DAILY PO Last administered on 05/04/17 09: 53; Start 05/03/17 at 09:00; Stop 05/04/17 at 12:28; Status DC Amlodipine Besylate (Norvasc) 5 mg ONCE ONCE PO Last administered on 12:30; Start 05/04/17 at 12:30; Stop 05/04/17 at 12:52; Status DC Amlodipine Besylate (Norvasc) 10 mg DAILY PO ; Start 05/05/17 at 09:00 Phenytoin Sodium 150 mg/Sodium Chloride 53 ml @ 212 mls/hr Q8HR IV Last administered on 05/05/17 06:45; Start 05/04/17 at 14:00 A/P Assessment and Plan 61-year-old female who presented with fall and confusion Acute left subdural hematoma with right occipital intraventricular blood and 7 mm midline shift toward the right. -Being managed by neurosurgeon. -Very poor prognosis. Baseline mental status is deteriorating and she is more lethargic today. We'll get a stat CT scan of the brain. Will also get stat labs including CBC, BMP, and Dilantin levels and valproic acid. -Per neurosurgeon team she may need a craniotomy on Saturday. Hypertension -Controlled. Continue amlodipine. - Continue with when necessary medication Vasotec 1.25 mg IV q. 6-hour p.r.n. for systolic blood pressure greater than 150 or diastolic blood pressure greater than 90. History of seizure disorder. -Monitor neuro status closely and avoid any sedatives. Continue with antiseizure meds. The patient is on Vimpat 200 mg b.i.d. Keppra, Depakote, Topamax and Dilantin 200 mg IV q.8h. Will check Dilantin and Depakote level. Urinary tract infection. -urine cultures grew with Providencia stuartii. Continue with Rocephin. History of schizophrenia. -Continue home medication. DVT prophylaxis -Chemical anticoagulation prophylaxis contraindicated in the setting of VEND[employer] A[employer]LYST bleed. Discharge Planning Very poor prognosis. Palliative care is following. Discussed with patient's nurse in charge nurse. Sana Hankins MD May 05, 2017 10:43
--- NOTE | 2017-05-05 10:46 | RADRPT ---
EXAM DATE/TIME: 05/05/2017 10:32 [facility] COMPARISON: CT BRAIN W/O CONTRAST, May 01, 2017, 6:03. INDICATIONS : Altered mental status. RADIATION DOSE: 51.78 CTDIvol (mGy) MEDICAL HISTORY : Seizures. Hypertension. Chronic obstructive pulmonary disease. SURGICAL HISTORY : None. ENCOUNTER: Initial ACUITY: 2 days PAIN SCALE: Non-responsive LOCATION: cranial TECHNIQUE: Multiple contiguous axial images were obtained of the head. Using automated exposure control and adj ustment of the mA and/or kV according to patient size, radiation dose was kept as low as reasonably a chievable to obtain optimal diagnostic quality images. DICOM format image data is available electro nically for review and comparison. FINDINGS: CEREBRUM: There is a stable area of intraparenchymal hemorrhage with surrounding edema in the posterior left fr ontal lobe measuring 2.6 x 1.4 cm. Anteriorly in the temporal lobe there is a 1 cm area of hemorrhage . There is some hemorrhage layering in the dilated ventricular system stable from the previous study. The extra-axial hemorrhage seen previously has clearly decreased and measures 5 mm today. There is a bilobed hemorrhagic collection lateral to the intraparenchymal hemorrhage stable from the previ ous study. POSTERIOR FOSSA: There is some hemorrhage layering along the tentorium . The cerebellum and brainstem are intact. Th e 4th ventricle is midline. The cerebellopontine angle is unremarkable. EXTRACRANIAL: The visualized portion of the orbits is intact. SKULL: The calvaria is intact. No evidence of skull fracture. CONCLUSION: The amount of extra-axial hemorrhage seen previously has clearly decreased on today's exam. The areas of intraparenchymal hemorrhage are stable with better defined surrounding edema. Ventricles remain d ilated unchanged. Mayito Bess MD on May 05, 2017 at 10:40 Board Certified Radiologist. This report was verified electronically.
--- NOTE | 2017-05-05 11:12 | HHI.NSPN ---
(Mireya Hammond) Note Status Status: Progress Note (Mireya Hammond) Interval History Interval History 04/30: The patient is a 61-year-old female who resides at a local [facility] with history of schizoaffective disorder, seizures, status post CVA. According to report from [facility], she was not feeling well this afternoon, she ambulated to the bathroom and fell. There was loss of consciousness for an unknown period of time. No seizures reported today. She reportedly had repetitive speech initially upon regaining consciousness. Discussion with nursing staff in the emergency room indicates that the patient was able to say her name intermittently upon arrival in the emergency room. She has not been following commands. 05/01: This morning the patient is awake and fairly alert. She watches this practitioner as he moves about the room. She does verbalise but her speech is garbled and incoherent. She is noted to have tremors to both upper extremities and moves them spontaneously. She went for a repeat CT brain this morning. 05/02: This morning the patient is seen in rounds with Dr. Sahu. The patient is awake and has nonsensical speech. Nursing reports that she keeps saying the word "tarpon." 113: When seen the patient is awake and fairly alert. She is fidgeting about in bed picking at things. She does track with her eyes. Her only verbalisation is a slight grunt/moan. 05/05: nursing reports patient more lethargic today, f/u CT Head obtained shows stable findings. no reports of seizures like activities. (Mireya Hammond) Labs, Micro, & Vital Signs Results Date Time Temp Pulse Resp B/P (MAP) Pulse Ox O2 Delivery O2 Flow Rate FiO2 05/05/17 08:00 100.0 91 21 132/68 (89) 93 05/05/17 04:00 98.8 101 21 135/75 (95) 94 05/05/17 00:02 98.2 104 22 140/85 (103) 95 05/04/17 20:00 99.2 107 22 130/78 (95) 94 05/04/17 16:00 99.0 92 18 117/73 (88) 95 05/04/17 12:00 98.5 69 18 129/76 (93) 96 Constitutional Vital Signs Date Time Temp Pulse Resp B/P (MAP) Pulse Ox O2 Delivery O2 Flow Rate FiO2 05/05/17 08:00 100.0 91 21 132/68 (89) 93 05/05/17 04:00 98.8 101 21 135/75 (95) 94 05/05/17 00:02 98.2 104 22 140/85 (103) 95 05/04/17 20:00 99.2 107 22 130/78 (95) 94 05/04/17 16:00 99.0 92 18 117/73 (88) 95 05/04/17 12:00 98.5 69 18 129/76 (93) 96 (Mireya Hammond) Review of Systems ROS Limitations: Altered Mental Status (Mireya Hammond) Physical Exam Comatose, does not open eyes, does not follow commands. Snoring CN: pupils 5 mm bilaterally, dysconjugate gaze. Positive corneal reflexes Motor: very minimal withdrawal to pain in feet No spontaneous movements Neck: soft, supple no seizures noted (Mireya Hammond) Medications Current Medications Current Medications Medications (Trade) Dose Ordered Sig/Elizabet Route PRN Reason Start Time Stop Time Status Last Admin Dose Admin Albuterol Sulfate (Proair Hfa Inh) 2 puff QID INH 04/30/17 21:00 05/04/17 23:03 Budesonide/ Formoterol Fumarate (Symbicort 160-4.5 Inh) 2 puff BID INH 04/30/17 21:00 05/04/17 23:03 Citalopram Hydrobromide (CeleXA) 40 mg DAILY PO 05/01/17 09:00 05/04/17 09:53 Divalproex Sodium (Depakote Dr) 750 mg Q12HR PO 04/30/17 21:00 05/04/17 23:03 Docusate Sodium (Colace) 100 mg DAILY PO 05/01/17 09:00 05/04/17 09:53 Folic Acid (Folate) 1 mg DAILY PO 05/01/17 09:00 05/04/17 09:53 Lacosamide (Vimpat) 200 mg BID PO 04/30/17 21:00 05/04/17 23:02 Memantine (Namenda) 10 mg BID PO 04/30/17 21:00 05/04/17 23:03 Tiotropium Hilliard (Spiriva Inh) 18 mcg DAILY INH 05/01/17 09:00 05/04/17 10:05 Topiramate (Topamax) 100 mg BID PO 04/30/17 21:00 05/04/17 23:03 Enalaprilat (Vasotec Inj) 1.25 mg Q6H PRN IV PUSH SBP>150, DBP>90 04/30/17 18:30 05/04/17 05:37 Pantoprazole Sodium (Protonix) 40 mg DAILY PO 05/01/17 09:00 05/04/17 09:53 Levetriacetam 100 ml @ 400 mls/hr Q12HR IV 04/30/17 21:00 05/04/17 22:53 Albuterol/ Ipratropium (Duoneb Neb) 1 ampule Q2HR NEB PRN INH WHEEZING 04/30/17 18:45 Miscellaneous Information 1 Q361D XX 04/30/17 18:45 Chlorhexidine Gluconate (Chlorhexidine 2% Cloth) 3 pack Taper DAILY@04 TOP 05/01/17 04:00 04/27/18 03:59 04/30/17 22:00 Chlorhexidine Gluconate (Chlorhexidine 2% Cloth) 3 pack UNSCH PRN TOP HYGIENIC CARE 04/30/17 18:45 Sodium Chloride 1,000 ml @ 40 mls/hr Q24H IV 04/30/17 20:00 05/04/17 23:40 Dextrose (D50w (Vial) Inj) 50 ml UNSCH PRN IV PUSH HYPOGLYCEMIA-SEE COMMENTS 04/30/17 18:45 Glucagon (Glucagon Inj) 1 mg UNSCH PRN OTHER HYPOGLYCEMIA-SEE COMMENTS 04/30/17 18:45 Insulin Human Regular (NovoLIN R SUPPLEMENTAL SCALE) 1 Q4HR SQ 04/30/17 20:00 05/02/17 20:31 Ceftriaxone Sodium 1000 mg/ Sodium Chloride 100 ml @ 200 mls/hr Q24H IV 04/30/17 21:00 05/04/17 22:56 Metoprolol Tartrate (Lopressor) 50 mg BID PO 05/03/17 09:00 05/04/17 23:03 Labetalol HCl (Trandate Inj) 20 mg Q3HR PRN IV PUSH SBP > 150 05/03/17 08:00 05/03/17 08:22 Hydralazine HCl (Apresoline) 50 mg Q8HR PRN PO SBP > 160 05/03/17 07:15 05/03/17 08:22 Amlodipine Besylate (Norvasc) 10 mg DAILY PO 05/05/17 09:00 Phenytoin Sodium 150 mg/Sodium Chloride 53 ml @ 212 mls/hr Q8HR IV 05/04/17 14:00 05/05/17 06:45 (Mireya Hammond) Medical Decision Making MDM Remarks 61 y/o female with 1. Acute left subdural hematoma with left frontotemporal hemorrhagic contusions. 2. Hypertension 3. History of schizoaffective-bipolar disorder worsened neuro exam today 05/05, patient now comatose, f/u CT Head 05/05 reviewed with stable parenchymal hematoma, improved subdural hemorrhage, patient is DNR ?seizures (Mireya Hammond) Plan Plan Remarks f/u CT Head today reviewed, stable findings palliative care following, EEG to assess seizures, cont current antiepileptics per Dr. James previous noted, no surgery planned per family's wishes dw nursing and Dr. Hankins (Mireya Hammond) Attending Statement The exam, history, and the medical decision-making described in the above note were completed with the assistance of the mid-level provider. I reviewed and agree with the findings presented. I attest that I had a [id number] encounter with the patient on the same day, and personally performed and documented my assessment and findings in the medical record. (Ronnie Dunn MD) Mireya Hammond May 05, 2017 11:12 Ronnie Dunn MD May 05, 2017 20:17
[2017-05-05 11:39] LABS: BLOOD GAS BASE EXCESS -7.3 mmol/L (-2-2); BLOOD GAS CARBOXYHEMOGLOBIN 1.3 % (0-4); BLOOD GAS HCO3 17 mmol/L (22-26); BLOOD GAS METHEMOGLOBIN 0.7 % (0-2); BLOOD GAS O2 HGB SATURATION 92 % (90-100); BLOOD GAS OXYGEN CONTENT 17.1 Vol % (12.0-20.0); BLOOD GAS PCO2 31 mmHg (38-42); BLOOD GAS PO2 76 mmHg (61-120); BLOOD GAS TOTAL HGB 13.2 G/DL (12.0-16.0); CRITICAL VALUE NO; DRAW SITE RT BRACHIAL; NUMBER OF ARTERIAL PUNCTURES 1; OXYGEN DEVICE RA; STAT YES; TEMP CORR TO 98.6; ULNAR PULSE Y
[2017-05-05 13:28] LABS: HEMATOCRIT 41.3 % (35.0-46.0); MEAN CELL VOLUME 94.9 FL (80.0-100.0); MEAN CORPUSCULAR HEMOGLOBIN 31.1 PG (27.0-34.0); MEAN CORPUSCULAR HGB CONC 32.8 % (32.0-36.0); PLATELET COUNT 113 TH/MM3 (150-450); RED BLOOD COUNT 4.36 MIL/MM3 (4.00-5.30); RED CELL DISTRIBUTION WIDTH 14.4 % (11.6-17.2); REVIEW FLAG FINAL
[2017-05-05 14:09] LABS: BICARBONATE 16.3 MEQ/L (21.0-32.0); POTASSIUM 5.1 MEQ/L (3.5-5.1)
[2017-05-05] MEDS ORDERED: SODIUM CHLORID 0.9% 500 ML INJ 500 ML IV ONE ×2 (15:00→16:30)
--- NOTE | 2017-05-05 15:35 | RADRPT ---
EXAM DATE/TIME: 05/05/2017 14:59 [facility] COMPARISON: CHEST SINGLE AP, April 30, 2017, 15:47. INDICATIONS : Dyspnea MEDICAL HISTORY : None. SURGICAL HISTORY : None. ENCOUNTER: Subsequent ACUITY: 4 - 6 days PAIN SCORE: Non-responsive. LOCATION: chest FINDINGS: A single view of the chest demonstrates the lungs to be symmetrically aerated without evidence of mas s, infiltrate or effusion. The cardiomediastinal contours are unremarkable. Nonacute rib fractures are again noted laterally of the left fourth, fifth and sixth. CONCLUSION: No evidence of acute cardiopulmonary disease. Ernesto Parham MD on May 05, 2017 at 15:32 Board Certified Radiologist. This report was verified electronically.
[2017-05-05] MEDS ORDERED: SODIUM CHLORID 0.9% 500 ML INJ 500 ML IV SCH (16:00)
[2017-05-05 17:59] LABS: BLOOD, URINE TRACE (NEG); GLUCOSE,URINE NEG (NEG); HYALINE CAST, URINE 1 /lpf (RARE); KETONE, URINE NEG (NEG); MUCUS URINE FEW /lpf (OCC); NITRITE,URINE NEG (NEG); PH, URINE 7.5 (5.0-8.5); URINE COLOR LIGHT-YELLOW (YELLW/STRAW)
[2017-05-05 18:03] LABS: COMMENT (UR) CATH-CULTURE IND; CULTURE IF INDICATED CATH CULTURE IND
[2017-05-05] MEDS: cefTRIAXone INJ 1,000 MG in SODIUM CHLORIDE 0.9% INJ 100 ML IV SCH (21:14)
[2017-05-05] MEDS: SODIUM CHLOR 0.9% 1000 ML INJ 1,000 ML IV SCH (22:49)
[2017-05-06] VITALS (8 sets, daily range): BP systolic 119–185; BP diastolic 60–88; PULSE 84–101; RESP 16–21; TEMP 97.4–100.5; O2SAT 92–100
[2017-05-06] MEDS: ENALAPRILAT 1.25 MG/ML VIAL IV PUSH PRN (02:22)
[2017-05-06] MEDS: CHLORHEXIDINE GLUCONATE 2 % 1 PACK (2 CLOTHS) TOP SCH (04:00)
[2017-05-06] MEDS: INSULIN NovoLIN REGULAR SUPPLEMENTAL SCALE SQ SCH ×5 (04:00→20:00)
[2017-05-06] MEDS: SODIUM CHLORIDE 0.9% IV SCH ×3 (05:34→23:03)
[2017-05-06] MEDS: PHENYTOIN IV SCH ×3 (05:34→23:03)
[2017-05-06] MEDS: FOLIC ACID 1 MG TAB PO SCH (09:00)
[2017-05-06] MEDS: TIOTROPIUM BROMIDE 18 MCG INH INH SCH (09:00)
[2017-05-06] MEDS: CITALOPRAM HYDROBROMIDE 40 MG TAB PO SCH (09:00)
[2017-05-06] MEDS: PANTOPRAZOLE SOD 40 MG DELAYED RELEASE TAB PO SCH (09:00)
[2017-05-06] MEDS: TOPIRAMATE 100 MG TAB PO SCH ×2 (09:00→21:00)
[2017-05-06] MEDS: ALBUTEROL SULFATE 90 MCG/ACT HFA 8 GM INHALER INH SCH ×4 (09:00→21:00)
[2017-05-06] MEDS: LACOSAMIDE 100 MG TAB PO SCH ×2 (09:00→21:00)
[2017-05-06] MEDS: METOPROLOL TARTRATE 50 MG TAB PO SCH ×2 (09:00→21:00)
[2017-05-06] MEDS: BUDESONIDE-FORMOTEROL 160/4.5 MCG INHALER INH SCH ×2 (09:00→21:00)
[2017-05-06] MEDS: DOCUSATE SODIUM 100 MG CAP PO SCH (09:00)
[2017-05-06] MEDS: DIVALPROEX SODIUM DELAYED RELEASE 250 MG TAB PO SCH ×2 (09:00→21:00)
[2017-05-06] MEDS: MEMANTINE HCL 10 MG TAB PO SCH ×2 (09:00→21:00)
[2017-05-06] MEDS: levETIRAcetam 1000 MG INJ 100 ML IV SCH ×2 (09:04→22:14)
--- NOTE | 2017-05-06 10:01 | MG ---
cc: ANTONIETA ÁLVAREZ MD Lab No: Date: : 1955 Sex: F MEDICAL HISTORY The patient fell with loss of consciousness. Lethargic, not following commands.History of stroke, seizure disorder, confusion, dizziness, headache, hypertension, anticoagulation therapy, COPD, falls, incontinence,schizoaffective , bipolar, depression, anxiety, aphasia. MEDICATIONS Protonix, Celexa, Norvasc. DESCRIPTION The EEG recording revealed generalized polymorphic theta and delta activity. During the recording there was frontal intermittent rhythmic delta activity, more prominent on the left side. Intermittent sharp-like activity in the left frontal region with phase reversal. Photic stimulation did not elicit a driving response. Hyperventilation was not done. There were no electrographic seizures. INTERPRETATION This is a drowsy EEG with generalized background slowing in the theta and delta range and the appearance of FIRDA (frontal intermittent rhythmic delta activity ) may indicate moderate to severe encephalopathy that it is likely secondary to medication effect, metabolic or hypoxia. There were intermittent left frontal sharp-like activity that may be epileptogenic. There was no ictal activity or electrographic seizures. Clinical correlation is recommended. Antonieta Álvarez MD RGO/RODRIGO /1:13 AM /10:59 AM MTDD
[2017-05-06 10:19] LABS: HEMATOCRIT 35.6 % (35.0-46.0); MEAN CELL VOLUME 96.3 FL (80.0-100.0); MEAN CORPUSCULAR HEMOGLOBIN 31.3 PG (27.0-34.0); MEAN CORPUSCULAR HGB CONC 32.5 % (32.0-36.0); PLATELET COUNT 79 TH/MM3 (150-450); RED CELL DISTRIBUTION WIDTH 14.7 % (11.6-17.2); WHITE BLOOD COUNT 13.6 TH/MM3 (4.0-11.0)
[2017-05-06 10:57] LABS: POTASSIUM 4.6 MEQ/L (3.5-5.1)
[2017-05-06 11:12] LABS: REVIEW FLAG FINAL
--- NOTE | 2017-05-06 11:16 | HHI.PR ---
Subjective Remarks Follow-up for intracranial bleed and worsening mental status Patient more awake today and does open her eyes to vocal command. She still does not follow any commands at all. Otherwise no other issues. Objective Vitals Vital Signs Date Time Temp Pulse Resp B/P (MAP) Pulse Ox O2 Delivery O2 Flow Rate FiO2 05/06/17 07:35 98.9 96 16 132/63 (86) 100 05/06/17 04:00 97.4 92 20 132/62 (85) 92 05/06/17 00:00 99.7 101 19 185/88 (120) 100 05/05/17 21:18 Nasal Cannula 2.00 05/05/17 20:00 98.9 89 20 126/73 (90) 100 05/05/17 16:00 99.4 86 20 124/61 (82) 98 05/05/17 12:00 99.7 95 20 150/79 (102) 95 I/O 05/05/17 05/05/17 05/05/17 05/06/17 05/06/17 05/06/17 07:00 15:00 23:00 07:00 15:00 23:00 Intake Total 1353 ml 200 ml 3197 ml Output Total 300 ml 1500 ml Balance 1353 ml 200 ml 2897 ml -1500 ml Intake Oral 100 ml IV Total 1253 ml 200 ml 3197 ml Output Urine Total 300 ml 1500 ml Bladder Scan Volume Amount 999 ml # Voids 1 # Bowel Movements 0 Result Diagram: 05/05/17 1250 05/06/17 0902 Objective Remarks GENERAL: in NAD HEENT: PERRLA SKIN: Patient has a hematoma/bruise on her right temporal scleral area. CARDIOVASCULAR: Regular rate and rhythm without murmurs, gallops, or rubs. RESPIRATORY: Breath sounds equal bilaterally. No accessory muscle use. GASTROINTESTINAL: Abdomen soft, non-tender, nondistended. MUSCULOSKELETAL: No cyanosis, or edema. NEURO: Patient able to open her eyes with commands but still does not follow any commands. This was her baseline prior. Medications and IVs Current Medications Lorazepam (Ativan Inj) 1 mg ONCE ONCE IM Last administered on 04/30/17t 15:32 ; Start 04/30/17 at 15:30; Stop 04/30/17 at 15:31; Status DC Albuterol Sulfate (Proair Hfa Inh) 2 puff QID INH Last administered on 23:03; Start 04/30/17 at 21:00 Budesonide/ Formoterol Fumarate (Symbicort 160-4.5 Inh) 2 puff BID INH Last administered on 05/04/17 23:03; Start 04/30/17 at 21:00 Citalopram Hydrobromide (CeleXA) 40 mg DAILY PO Last administered on 05/04/17 09:53; Start 05/01/17 at 09:00 Divalproex Sodium (Depakote Dr) 750 mg Q12HR PO Last administered on 05/04/17 23:03; Start 04/30/17 at 21:00 Docusate Sodium (Colace) 100 mg DAILY PO Last administered on 05/04/17 09:53; Start 05/01/17 at 09:00 Folic Acid (Folate) 1 mg DAILY PO Last administered on 05/04/17 09:53; Start 05/01/17 at 09:00 Lacosamide (Vimpat) 200 mg BID PO Last administered on 05/04/17 23:02; Start 04/30/17 at 21:00 Levetriacetam (Keppra) 1,000 mg TID PO ; Start 05/01/17 at 09:00; Status UNV Memantine (Namenda) 10 mg BID PO Last administered on 05/04/17 23:03; Start 04/30/17 at 21:00 Metoprolol Tartrate (Lopressor) 25 mg BID PO Last administered on 05/02/17 20: 32; Start 04/30/17 at 21:00; Stop 05/03/17 at 07:05; Status DC Phenytoin (Dilantin) 300 mg Q12HR PO ; Start 04/30/17 at 21:00; Status UNV Tiotropium [place] (Spiriva Inh) 18 mcg DAILY INH Last administered on 10:05; Start 05/01/17 at 09:00 Topiramate (Topamax) 100 mg BID PO Last administered on 05/04/17 23:03; Start 04/30/17 at 21:00 Enalaprilat (Vasotec Inj) 1.25 mg Q6H PRN IV PUSH SBP>150, DBP>90 Last administered on 05/06/17 02:22; Start 04/30/17 at 18:30 Pantoprazole Sodium (Protonix) 40 mg DAILY PO Last administered on 05/04/17 09 :53; Start 05/01/17 at 09:00 Phenytoin Sodium (Dilantin Inj) 200 mg Q8HR IV ; Start 04/30/17 at 22:00; Stop 05/03/17 at 06:58; Status DC Levetriacetam 100 ml @ 400 mls/hr Q12HR IV Last administered on 05/06/17 09: 04; Start 04/30/17 at 21:00 Albuterol/ Ipratropium (Duoneb Neb) 1 ampule Q6HR NEB INH Last administered on 05/04/17 15:56; Start 04/30/17 at 18:45; Stop 05/04/17 at 18:44; Status DC Albuterol/ Ipratropium (Duoneb Neb) 1 ampule Q2HR NEB PRN INH WHEEZING; Start 04/30/17 at 18:45 Miscellaneous Information 1 Q361D XX ; Start 04/30/17 at 18:45 Chlorhexidine Gluconate (Chlorhexidine 2% Cloth) Taper DAILY@04 TOP Last administered on 04/30/17 22:00; Start 05/01/17 at 04:00; Stop 04/27/18 at 03: 59 Chlorhexidine Gluconate (Chlorhexidine 2% Cloth) 3 pack UNSCH PRN TOP HYGIENIC CARE; Start 04/30/17 at 18:45 Sodium Chloride 1,000 ml @ 100 mls/hr Q10H IV Last administered on 05/05/17 22:49; Start 04/30/17 at 20:00 Dextrose (D50w (Vial) Inj) 50 ml UNSCH PRN IV PUSH HYPOGLYCEMIA-SEE COMMENTS; Start 04/30/17 at 18:45 Glucagon (Glucagon Inj) 1 mg UNSCH PRN OTHER HYPOGLYCEMIA-SEE COMMENTS; Start 04/30/17 at 18:45 Insulin Human Regular (NovoLIN R SUPPLEMENTAL SCALE) 1 Q4HR SQ Last administered on 05/02/17 20:31; Start 04/30/17 at 20:00 Ceftriaxone Sodium 1000 mg/ Sodium Chloride 100 ml @ 200 mls/hr Q24H IV Last administered on 05/05/17 21:14; Start 04/30/17 at 21:00 Phenytoin Sodium (Dilantin Inj) 150 mg Q8HR IV Last administered on 05/04/17 05:38; Start 05/03/17 at 14:00; Stop 05/04/17 at 15:33; Status DC Metoprolol Tartrate (Lopressor) 50 mg BID PO Last administered on 05/04/17 23: 03; Start 05/03/17 at 09:00 Labetalol HCl (Trandate Inj) 20 mg Q3HR PRN IV PUSH SBP > 150 Last administered on 05/03/17 08:22; Start 05/03/17 at 08:00 Hydralazine HCl (Apresoline) 50 mg Q8HR PRN PO SBP > 160 Last administered on 05/03/17 08:22; Start 05/03/17 at 07:15 Amlodipine Besylate (Norvasc) 5 mg DAILY PO Last administered on 05/04/17 09: 53; Start 05/03/17 at 09:00; Stop 05/04/17 at 12:28; Status DC Amlodipine Besylate (Norvasc) 5 mg ONCE ONCE PO Last administered on 12:30; Start 05/04/17 at 12:30; Stop 05/04/17 at 12:52; Status DC Amlodipine Besylate (Norvasc) 10 mg DAILY PO ; Start 05/05/17 at 09:00 Phenytoin Sodium 150 mg/Sodium Chloride 53 ml @ 212 mls/hr Q8HR IV Last administered on 05/06/17 05:34; Start 05/04/17 at 14:00 Sodium Chloride 500 ml @ 500 mls/hr BOLUS ONCE IV Last administered on 15:00; Start 05/05/17 at 15:00; Stop 05/05/17 at 15:59; Status DC Sodium Chloride 500 ml @ 50 mls/hr Q10H IV ; Start 05/05/17 at 16:00; Stop 05/05/17 at 16:01; Status DC Sodium Chloride 500 ml @ 500 mls/hr BOLUS ONCE IV Last administered on 18:43; Start 05/05/17 at 16:30; Stop 05/05/17 at 17:29; Status DC A/P Assessment and Plan 61-year-old female who presented with fall and confusion Acute left subdural hematoma with right occipital intraventricular blood and 7 mm midline shift toward the right. -Being managed by neurosurgeon. -Very poor prognosis. Baseline mental status is deteriorating and she is more lethargic today. -CT scan was repeated yesterday and was stable. Most likely lethargy was secondary to dehydration versus SIRS. Acute renal failure -Most likely secondary to dehydration. Patient was given fluid bolus yesterday and IV fluids increased. Today she has good urine output and creatinines improving 3.4-1.8. -Patient unable to swallow take oral intake. Family is trying to decide on hospice. If family does not want hospice will need to consider PEG. -Continue with IV fluids and monitor creatinine. -Avoid nephrotoxins and strict ins and outs. Hypertension -Controlled. Continue amlodipine. - Continue with when necessary medication Vasotec 1.25 mg IV q. 6-hour p.r.n. for systolic blood pressure greater than 150 or diastolic blood pressure greater than 90. History of seizure disorder. -Monitor neuro status closely and avoid any sedatives. Continue with antiseizure meds. The patient is on Vimpat 200 mg b.i.d. Keppra, Depakote, Topamax and Dilantin 200 mg IV q.8h. Will check Dilantin and Depakote level. Urinary tract infection. -urine cultures grew with Providencia stuartii. Continue with Rocephin. History of schizophrenia. -Continue home medication. DVT prophylaxis -Chemical anticoagulation prophylaxis contraindicated in the setting of FIN[employer]CIAL SOLUT[employer] ADVIS[employer] bleed. Discharge Planning Very poor prognosis. Palliative care is following. Family is considering hospice. Sana Hankins MD May 06, 2017 11:16
--- NOTE | 2017-05-06 11:38 | HHI.NSPN ---
History Chief Complaint: Unable to obtain due to patient's mental condition. Interval History 04/30: The patient is a 61-year-old female who resides at a local intermediate with history of schizoaffective disorder, seizures, status post CVA. According to report from intermediate, she was not feeling well this afternoon, she ambulated to the bathroom and fell. There was loss of consciousness for an unknown period of time. No seizures reported today. She reportedly had repetitive speech initially upon regaining consciousness. Discussion with nursing staff in the emergency room indicates that the patient was able to say her name intermittently upon arrival in the emergency room. She has not been following commands. 05/01: This morning the patient is awake and fairly alert. She watches this practitioner as he moves about the room. She does verbalise but her speech is garbled and incoherent. She is noted to have tremors to both upper extremities and moves them spontaneously. She went for a repeat CT brain this morning. 05/02: This morning the patient is seen in rounds with Dr. Sahu. The patient is awake and has nonsensical speech. Nursing reports that she keeps saying the word "tarpon." 113: When seen the patient is awake and fairly alert. She is fidgeting about in bed picking at things. She does track with her eyes. Her only verbalisation is a slight grunt/moan. 05/05: nursing reports patient more lethargic today, f/u CT Head obtained shows stable findings. no reports of seizures like activities. 05/06: This morning the patient is seen in rounds with Dr. Sahu. She is obtunded but does open her eyes to voice, otherwise she is nonresponsive. System Review Comments Unable to obtain due to patient's mental condition. The undersigned acts as a scribe for the remainder of this note. Exam Results 05/04/17 05/04/17 05/05/17 05/05/17 05/06/17 05/06/17 06:00 18:00 06:00 18:00 06:00 18:00 Intake Total 915 ml 1253 ml 800 ml 2697 ml Output Total 1800 ml Balance 915 ml 1253 ml 800 ml 897 ml Intake Oral 120 ml 0 ml 100 ml IV Total 795 ml 1253 ml 700 ml 2697 ml Output Urine Total 1800 ml Bladder Scan Volume Amount 999 ml # Voids 2 0 1 # Bowel Movements 1 0 0 Vital Signs Date Time Temp Pulse Resp B/P (MAP) Pulse Ox O2 Delivery O2 Flow Rate FiO2 05/06/17 09:10 2.00 05/06/17 07:35 98.9 96 16 132/63 (86) 100 05/06/17 04:00 97.4 92 20 132/62 (85) 92 05/06/17 00:00 99.7 101 19 185/88 (120) 100 05/05/17 21:18 Nasal Cannula 2.00 05/05/17 20:00 98.9 89 20 126/73 (90) 100 05/05/17 16:00 99.4 86 20 124/61 (82) 98 05/05/17 12:00 99.7 95 20 150/79 (102) 95 05/05/17 09:42 99.5 89 22 120/66 (84) 95 05/05/17 08:00 100.0 91 21 132/68 (89) 93 05/05/17 04:00 98.8 101 21 135/75 (95) 94 05/05/17 00:02 98.2 104 22 140/85 (103) 95 05/04/17 20:00 99.2 107 22 130/78 (95) 94 05/04/17 16:00 99.0 92 18 117/73 (88) 95 05/04/17 12:00 98.5 69 18 129/76 (93) 96 05/04/17 08:00 98.1 95 18 141/81 (101) 97 05/04/17 05:05 98.9 89 18 185/97 (126) 96 05/04/17 00:03 97.6 89 18 192/94 (126) 98 05/03/17 22:03 99 21 05/03/17 20:22 97.8 80 16 175/91 (119) 95 05/03/17 16:00 82 05/03/17 16:00 98.6 73 18 66/82 (77) 100 05/03/17 14:00 74 05/03/17 12:33 98 21 05/03/17 12:00 98.3 76 26 135/76 (95) 100 05/03/17 12:00 76 Physical Examination GENERAL: Obtunded, opens eyes to voice. No apparent distress. NEUROLOGICAL: Obtunded. Opens eyes to voice. Dysconjugate ocular. Nonverbal. Does not follow commands. Lab, Micro, Other Results Recent Impressions Head CT 05/05/17 0000 Signed Impressions: Service Date/Time: Friday, May 05, 2017 10:32 - CONCLUSION: The amount of extra-axial hemorrhage seen previously has clearly decreased on today's exam. The areas of intraparenchymal hemorrhage are stable with better defined surrounding edema. Ventricles remain dilated unchanged. Mayito Bess MD Chest X-Ray 05/05/17 0000 Signed Impressions: Service Date/Time: Friday, May 05, 2017 14:59 - CONCLUSION: No evidence of acute cardiopulmonary disease. Ernesto Parham MD Laboratory Tests Test 05/05/17 11:00 05/05/17 12:50 05/05/17 16:16 05/06/17 09:02 Blood Gas Puncture Site RT BRACHIAL Blood Gas Patient Temperature 98.6 Blood Gas HCO3 17 mmol/L Blood Gas Base Excess -7.3 mmol/L Blood Gas Oxygen Saturation 92 % Arterial Blood pH 7.36 Arterial Blood Partial Pressure CO2 31 mmHg Arterial Blood Partial Pressure O2 76 mmHg Arterial Blood Oxygen Content 17.1 Vol % Arterial Blood Carboxyhemoglobin 1.3 % Arterial Blood Methemoglobin 0.7 % Blood Gas Hemoglobin 13.2 G/DL Oxygen Delivery Device RA White Blood Count 17.0 TH/MM3 13.6 TH/MM3 Red Blood Count 4.36 MIL/MM3 3.70 MIL/MM3 Hemoglobin 13.5 GM/DL 11.6 GM/DL Hematocrit 41.3 % 35.6 % Mean Corpuscular Volume 94.9 FL 96.3 FL Mean Corpuscular Hemoglobin 31.1 PG 31.3 PG Mean Corpuscular Hemoglobin Concent 32.8 % 32.5 % Red Cell Distribution Width 14.4 % 14.7 % Platelet Count 113 TH/MM3 79 TH/MM3 Mean Platelet Volume 9.0 FL 9.0 FL Blood Urea Nitrogen 66 MG/DL 51 MG/DL Creatinine 3.47 MG/DL 1.87 MG/DL Random Glucose 118 MG/DL 106 MG/DL Calcium Level 8.4 MG/DL 8.3 MG/DL Sodium Level 135 MEQ/L 142 MEQ/L Potassium Level 5.1 MEQ/L 4.6 MEQ/L Chloride Level 105 MEQ/L 112 MEQ/L Carbon Dioxide Level 16.3 MEQ/L 18.0 MEQ/L Anion Gap 14 MEQ/L 12 MEQ/L Estimat Glomerular Filtration Rate 13 ML/MIN 27 ML/MIN Phenytoin (Dilantin) Level 12.6 MCG/ML Valproic Acid (Depakene) Level 50 MCG/ML Urine Color LIGHT-YELLOW Urine Turbidity CLEAR Urine pH 7.5 Urine Specific [place] 1.011 Urine Protein NEG mg/dL Urine Glucose (UA) NEG mg/dL Urine Ketones NEG mg/dL Urine Occult Blood TRACE Urine Nitrite NEG Urine Bilirubin NEG Urine Urobilinogen LESS THAN 2.0 MG/DL Urine Leukocyte Esterase SMALL Urine RBC 9 /hpf Urine WBC 7 /hpf Urine Hyaline Casts 1 /lpf Urine Mucus FEW /lpf Microscopic Urinalysis Comment CATH-CULTURE IND Medical Decision Making Impression and Plan The Impression & Plan are carried forward from the note of except for updating the POD #, deletion of the authors daily impression and as Added, Deleted, Modified or New Order. Impression: 1. Acute left subdural hematoma with left frontotemporal hemorrhagic contusions. It is questionable whether she had some initial parenchymal hemorrhage leading to her fall, according to history. 2. Hypertension 3. History of schizoaffective-bipolar disorder Plan: Discussed plan of care with Nursing. Primary management per Hospitalist/Super[employer]. Continue to monitor in [facility]. Frequent neuro checks. Hold aspirin and statin medications Continue Dilantin Depakote and Kylie Diazra for seizure prophylaxis. Ulcer prophylaxis. Non-chemical DVT prophylaxis. -O-l-p-s-i-b-l-e- -r-r-p-x-c-q-t-o-m-y- -o-n- -U-l-w-d-a-y- -2-0-1-7--/--1-1--/- -0-6-.- -O-n-l-y- -n-s-u-i-l-y- -i-s- -a- -q-b-n-t-h-e-r- -w-h-o- -i-s- -a-b-r-e-l-e-s-s- -a-n-d- -n-o- -w-a-y- -t-o- -o-t-d-t-a-c-t-.- ( Deleted) NSGY will sign off at this time since family is considering Hospice. If there is a change or we may be of further assistance do no hesitate to consult the service again. Thank you for allowing us to participate in your patient's care. (Added) Estuardo Arellano May 06, 2017 11:38
[2017-05-06] MEDS: SODIUM CHLOR 0.9% 1000 ML INJ 1,000 ML IV SCH (14:00)
--- NOTE | 2017-05-06 20:15 | MB ---
cc: KAUSHAL GRAHAM M.D. DATE OF CONSULTATION 05/06/2017 REASON FOR CONSULTATION Consult requested by Dr. Hankins for evaluation of thrombocytopenia. HISTORY OF PRESENT ILLNESS Chrissy is a 61-year-old female. She has a history of seizure disorder and schizophrenia and hypertension. [facility] and was brought into the emergency room. Further workup revealed the patient has developed subdural hematoma as well as intracranial bleed. Neurosurgery was consulted. Dr. Sahu saw the patient who has recommended conservative management as the patient has no chance to recover from the intracranial hemorrhage. She is obtunded but she opens her eyes. The palliative care was consulted. The patient is single, never been . She does not have any children. She has brother and sister who are health care surrogate. They have decided for best supportive care with hospice. The patient's CBC on admission was normal. The white count is 10.8, hemoglobin 15.2 and platelet count is 157. CBC yesterday showed that the white count has gone up and platelet count had dropped to 113. The patient was found to have urinary tract infection and she was started on antibiotics. Today her white count has came down to 13.6 and her platelet count had dropped to 79. Due to the thrombocytopenia I have been asked to see her for further evaluation. The patient is unable to give any history. She is obtunded. She opens her eyes but does not follow the commands. Her creatinine was found to be elevated yesterday at 3.47 probably due to severe dehydration. She received hydration and her creatinine has improved to 1.87 today. It appears that neurosurgery has not recommended any surgical intervention due to poor prognosis. Review of systems is not possible due to the patient's mental status. PAST MEDICAL HISTORY 1. Schizophrenia. 2. Seizure disorder. 3. Hypertension. 4. Anxiety. 5. Arthritis. 6. Bipolar disorder. PAST SURGICAL HISTORY 1. Tubal ligation. 2. Oral surgery. ALLERGIES ARIPIPRAZOLE. MEDICATIONS Please see EMR. FAMILY HISTORY Parents from old age. The patient has a brother and sister. She does not have any children. SOCIAL HISTORY The patient is single. Does not smoke cigarettes, does not drink alcohol. PHYSICAL EXAMINATION GENERAL: This is a well-developed, well-nourished female in no apparent distress. VITAL SIGNS: Temperature 100.5, heart rate 98, blood pressure 154/67. HEENT: Pupils equal, round, reactive to light and accommodation. Extraocular muscles intact. Anicteric. No oral lesions noted. NECK: No lymphadenopathy noted. LUNGS: Clear. No wheezes, rhonchi or rales. HEART: Regular rate and rhythm. ABDOMEN: Soft. Nontender. EXTREMITIES: No pedal edema. NEUROLOGICAL: The patient is obtunded but arousable. Does not follow commands. SKIN: No significant lesions noted. ASSESSMENT Acute thrombocytopenia this is most likely due to sepsis and/or medications. PLAN I have reviewed her available records. The patient came in with a normal platelet count and now her platelet count has dropped to 79. She had a febrile illness and urinalysis showed urinary tract infection. She is on antibiotics. She also has low grade fever. Certainly infection could cause thrombocytopenia. Also she is on multiple medications which also can cause thrombocytopenia such as ceftriaxone, Depakote, Keppra and Dilantin. The patient has not had any seizures. Her repeat urine culture came back negative. Her creatinine was elevated yesterday at now it is normal at 1.87. There is no evidence of HUS or TTP or ITP. Certainly heparin-induced thrombocytopenia cannot be ruled out but I doubt it. I will order the HIT test. The patient's prognosis is extremely poor. She has severe intracranial and subdural hematoma. According to neurosurgery there is no chance of recovery, therefore no surgery has been recommended. The patient's family have decided for best supportive care with hospice. Her prognosis is extremely poor. Recommend to monitor her CBC and transfuse platelets if she starts bleeding from other areas or if the intracranial bleed gets worse. Thank you for asking my opinion. MD NATALIE Briseno/GEORGINA /7:13 PM /8:02 PM NIK
[2017-05-06] MEDS: cefTRIAXone INJ 1,000 MG in SODIUM CHLORIDE 0.9% INJ 100 ML IV SCH (22:15)
[2017-05-07] VITALS (9 sets, daily range): BP systolic 103–152; BP diastolic 60–72; PULSE 88–98; RESP 18–22; TEMP 97.8–100.5; O2SAT 97–100
[2017-05-07] MEDS: INSULIN NovoLIN REGULAR SUPPLEMENTAL SCALE SQ SCH ×6 (04:00→20:00)
[2017-05-07] MEDS: CHLORHEXIDINE GLUCONATE 2 % 1 PACK (2 CLOTHS) TOP SCH (04:00)
[2017-05-07] MEDS: SODIUM CHLOR 0.9% 1000 ML INJ 1,000 ML IV SCH ×4 (04:27→21:22)
[2017-05-07] MEDS: SODIUM CHLORIDE 0.9% IV SCH ×3 (05:49→23:20)
[2017-05-07] MEDS: PHENYTOIN IV SCH ×3 (05:49→23:20)
[2017-05-07 07:24] LABS: HEMATOCRIT 28.8 % (35.0-46.0); MEAN CELL VOLUME 94.3 FL (80.0-100.0); MEAN CORPUSCULAR HEMOGLOBIN 32.1 PG (27.0-34.0); MEAN CORPUSCULAR HGB CONC 34.1 % (32.0-36.0); PLATELET COUNT 73 TH/MM3 (150-450); RED BLOOD COUNT 3.05 MIL/MM3 (4.00-5.30); RED CELL DISTRIBUTION WIDTH 14.2 % (11.6-17.2); WHITE BLOOD COUNT 8.8 TH/MM3 (4.0-11.0)
[2017-05-07 07:29] LABS: REVIEW FLAG FINAL
[2017-05-07 08:00] LABS: BICARBONATE 22.3 MEQ/L (21.0-32.0); POTASSIUM 3.4 MEQ/L (3.5-5.1)
[2017-05-07] MEDS: levETIRAcetam 1000 MG INJ 100 ML IV SCH ×2 (08:16→20:05)
[2017-05-07] MEDS: TIOTROPIUM BROMIDE 18 MCG INH INH SCH (08:21)
[2017-05-07] MEDS: DOCUSATE SODIUM 100 MG CAP PO SCH (08:21)
[2017-05-07] MEDS: CITALOPRAM HYDROBROMIDE 40 MG TAB PO SCH (08:21)
[2017-05-07] MEDS: DIVALPROEX SODIUM DELAYED RELEASE 250 MG TAB PO SCH ×2 (08:21→20:05)
[2017-05-07] MEDS: BUDESONIDE-FORMOTEROL 160/4.5 MCG INHALER INH SCH ×2 (08:21→20:13)
[2017-05-07] MEDS: ALBUTEROL SULFATE 90 MCG/ACT HFA 8 GM INHALER INH SCH ×4 (08:21→20:13)
[2017-05-07] MEDS: METOPROLOL TARTRATE 50 MG TAB PO SCH ×2 (08:22→20:05)
[2017-05-07] MEDS: MEMANTINE HCL 10 MG TAB PO SCH ×2 (08:22→20:05)
[2017-05-07] MEDS: PANTOPRAZOLE SOD 40 MG DELAYED RELEASE TAB PO SCH (08:22)
[2017-05-07] MEDS: FOLIC ACID 1 MG TAB PO SCH (08:22)
[2017-05-07] MEDS: LACOSAMIDE 100 MG TAB PO SCH ×2 (08:23→20:04)
[2017-05-07] MEDS: TOPIRAMATE 100 MG TAB PO SCH ×2 (08:23→20:05)
--- NOTE | 2017-05-07 10:21 | HHI.PR ---
Subjective Remarks Follow-up for intracranial bleed Patient is much more awake today and is able to me her first name. Otherwise she repeats the same word repeatedly. She does move her right upper arm and wiggle both her toes. Otherwise there are no other movements. She somewhat follow commands but there are other times she does not follow commands. Discussed with patient's nurse know issue. Objective Vitals Vital Signs Date Time Temp Pulse Resp B/P (MAP) Pulse Ox O2 Delivery O2 Flow Rate FiO2 05/07/17 09:29 98 Nasal Cannula 2.00 05/07/17 08:02 100.1 96 18 137/60 (85) 99 05/07/17 06:46 100.2 95 20 103/70 (81) 98 05/07/17 00:53 99.6 98 20 132/60 (84) 98 05/06/17 20:01 99.5 101 21 119/61 (80) 100 05/06/17 18:00 99 05/06/17 17:32 84 05/06/17 15:40 100.5 98 17 154/67 (96) 99 05/06/17 11:37 98.8 95 16 129/60 (83) 99 I/O 05/06/17 05/06/17 05/06/17 05/07/17 05/07/17 05/07/17 07:00 15:00 23:00 07:00 15:00 23:00 Intake Total 2000 ml Output Total 1500 ml 600 ml 1800 ml Balance -1500 ml -600 ml 2000 ml -1800 ml IV Total 2000 ml Output Urine Total 1500 ml 600 ml 1800 ml Result Diagram: 05/07/17 0705/07/17 0700 Objective Remarks GENERAL: in NAD HEENT: PERRLA SKIN: Patient has a hematoma/bruise on her right temporal scleral area. CARDIOVASCULAR: Regular rate and rhythm without murmurs, gallops, or rubs. RESPIRATORY: Breath sounds equal bilaterally. No accessory muscle use. GASTROINTESTINAL: Abdomen soft, non-tender, nondistended. MUSCULOSKELETAL: No cyanosis, or edema. NEURO: Patient able to give me her first name. She repeats words. She is able to move her right upper arm and wiggle her toes. Otherwise unable to get any other type of exam from her. Medications and IVs Current Medications Lorazepam (Ativan Inj) 1 mg ONCE ONCE IM Last administered on 04/30/17 15:32 ; Start 04/30/17 at 15:30; Stop 04/30/17 at 15:31; Status DC Albuterol Sulfate (Proair Hfa Inh) 2 puff QID INH Last administered on 08:21; Start 04/30/17 at 21:00 Budesonide/ Formoterol Fumarate (Symbicort 160-4.5 Inh) 2 puff BID INH Last administered on 05/07/17 08:21; Start 04/30/17 at 21:00 Citalopram Hydrobromide (CeleXA) 40 mg DAILY PO Last administered on 05/04/17 09:53; Start 05/01/17 at 09:00 Divalproex Sodium (Depakote Dr) 750 mg Q12HR PO Last administered on 05/04/17 23:03; Start 04/30/17 at 21:00 Docusate Sodium (Colace) 100 mg DAILY PO Last administered on 05/04/17 09:53; Start 05/01/17 at 09:00 Folic Acid (Folate) 1 mg DAILY PO Last administered on 05/04/17 09:53; Start 05/01/17 at 09:00 Lacosamide (Vimpat) 200 mg BID PO Last administered on 05/04/17 23:02; Start 04/30/17 at 21:00 Levetriacetam (Keppra) 1,000 mg TID PO ; Start 05/01/17 at 09:00; Status UNV Memantine (Namenda) 10 mg BID PO Last administered on 05/04/17 23:03; Start 04/30/17 at 21:00 Metoprolol Tartrate (Lopressor) 25 mg BID PO Last administered on 05/02/17 20: 32; Start 04/30/17 at 21:00; Stop 05/03/17 at 07:05; Status DC Phenytoin (Dilantin) 300 mg Q12HR PO ; Start 04/30/17 at 21:00; Status UNV Tiotropium [place] (Spiriva Inh) 18 mcg DAILY INH Last administered on 08:21; Start 05/01/17 at 09:00 Topiramate (Topamax) 100 mg BID PO Last administered on 05/04/17 23:03; Start 04/30/17 at 21:00 Enalaprilat (Vasotec Inj) 1.25 mg Q6H PRN IV PUSH SBP>150, DBP>90 Last administered on 05/06/17 02:22; Start 04/30/17 at 18:30 Pantoprazole Sodium (Protonix) 40 mg DAILY PO Last administered on 05/04/17 09 :53; Start 05/01/17 at 09:00 Phenytoin Sodium (Dilantin Inj) 200 mg Q8HR IV ; Start 04/30/17 at 22:00; Stop 05/03/17 at 06:58; Status DC Levetriacetam 100 ml @ 400 mls/hr Q12HR IV Last administered on 05/07/17 08: 16; Start 04/30/17 at 21:00 Albuterol/ Ipratropium (Duoneb Neb) 1 ampule Q6HR NEB INH Last administered on 05/04/17 15:56; Start 04/30/17 at 18:45; Stop 05/04/17 at 18:44; Status DC Albuterol/ Ipratropium (Duoneb Neb) 1 ampule Q2HR NEB PRN INH WHEEZING; Start 04/30/17 at 18:45 Miscellaneous Information 1 Q361D XX ; Start 04/30/17 at 18:45 Chlorhexidine Gluconate (Chlorhexidine 2% Cloth) Taper DAILY@04 TOP Last administered on 04/30/17 22:00; Start 05/01/17 at 04:00; Stop 04/27/18 at 03: 59 Chlorhexidine Gluconate (Chlorhexidine 2% Cloth) 3 pack UNSCH PRN TOP HYGIENIC CARE; Start 04/30/17 at 18:45 Sodium Chloride 1,000 ml @ 100 mls/hr Q10H IV Last administered on 05/07/17 04:50; Start 04/30/17 at 20:00 Dextrose (D50w (Vial) Inj) 50 ml UNSCH PRN IV PUSH HYPOGLYCEMIA-SEE COMMENTS; Start 04/30/17 at 18:45 Glucagon (Glucagon Inj) 1 mg UNSCH PRN OTHER HYPOGLYCEMIA-SEE COMMENTS; Start 04/30/17 at 18:45 Insulin Human Regular (NovoLIN R SUPPLEMENTAL SCALE) 1 Q4HR SQ Last administered on 05/02/17 20:31; Start 04/30/17 at 20:00 Ceftriaxone Sodium 1000 mg/ Sodium Chloride 100 ml @ 200 mls/hr Q24H IV Last administered on 05/06/17 22:15; Start 04/30/17 at 21:00 Phenytoin Sodium (Dilantin Inj) 150 mg Q8HR IV Last administered on 05/04/17 05:38; Start 05/03/17 at 14:00; Stop 05/04/17 at 15:33; Status DC Metoprolol Tartrate (Lopressor) 50 mg BID PO Last administered on 05/04/17 23: 03; Start 05/03/17 at 09:00 Labetalol HCl (Trandate Inj) 20 mg Q3HR PRN IV PUSH SBP > 150 Last administered on 05/03/17 08:22; Start 05/03/17 at 08:00 Hydralazine HCl (Apresoline) 50 mg Q8HR PRN PO SBP > 160 Last administered on 05/03/17 08:22; Start 05/03/17 at 07:15 Amlodipine Besylate (Norvasc) 5 mg DAILY PO Last administered on 05/04/17 09: 53; Start 05/03/17 at 09:00; Stop 05/04/17 at 12:28; Status DC Amlodipine Besylate (Norvasc) 5 mg ONCE ONCE PO Last administered on 12:30; Start 05/04/17 at 12:30; Stop 05/04/17 at 12:52; Status DC Amlodipine Besylate (Norvasc) 10 mg DAILY PO ; Start 05/05/17 at 09:00 Phenytoin Sodium 150 mg/Sodium Chloride 53 ml @ 212 mls/hr Q8HR IV Last administered on 05/07/17 05:49; Start 05/04/17 at 14:00 Sodium Chloride 500 ml @ 500 mls/hr BOLUS ONCE IV Last administered on 15:00; Start 05/05/17 at 15:00; Stop 05/05/17 at 15:59; Status DC Sodium Chloride 500 ml @ 50 mls/hr Q10H IV ; Start 05/05/17 at 16:00; Stop 11/ 5/17 at 16:01; Status DC Sodium Chloride 500 ml @ 500 mls/hr BOLUS ONCE IV Last administered on t 18:43; Start 05/05/17 at 16:30; Stop 05/05/17 at 17:29; Status DC A/P Assessment and Plan 61-year-old female who presented with fall and confusion Acute left subdural hematoma with right occipital intraventricular blood and 7 mm midline shift toward the right. -Being managed by neurosurgeon. -Very poor prognosis. -CT scan was repeated and it was stable. -Mental status dye she is improving today. Acute renal failure -Most likely secondary to dehydration. -Resolved with IV fluids and boluses. -Patient unable to swallow take oral intake. -Avoid nephrotoxins and strict ins and outs. -Family wanted to transition patient to hospice per nurse palliative care are still trying to work on getting a hold of family members. Hypertension -Controlled. Continue amlodipine. - Continue with when necessary medication Vasotec 1.25 mg IV q. 6-hour p.r.n. for systolic blood pressure greater than 150 or diastolic blood pressure greater than 90. History of seizure disorder. -Monitor neuro status closely and avoid any sedatives. Continue with antiseizure meds. The patient is on Vimpat 200 mg b.i.d. Keppra, Depakote, Topamax and Dilantin 200 mg IV q.8h. Dilantin and Depakote level checked on 05/05 within range. Urinary tract infection. -urine cultures grew with Providencia stuartii. Pending repeat blood cultures. once blood cultures are negative will discontinue Rocephin. History of schizophrenia. -Continue home medication. DVT prophylaxis -Chemical anticoagulation prophylaxis contraindicated in the setting of [employer] bleed. Discharge Planning Very poor prognosis. Palliative care is following. Family is considering hospice but palliative care having a difficult time getting a hold of the family. Sana Hankins MD May 07, 2017 10:21
--- NOTE | 2017-05-07 13:38 | HHI.HCPN ---
Palliative care spoke with patient's brother/HCS. In review of records attempts to contact him previously have been unsuccessful. He confirms receiving hospice consents and desire to transition Ms. Hernandez back to the facility supported by hospice services. JUNG Liu spoke with hospice admissions nurse. mobile web application developer to contact brother to further assist. Palliative care will continue to follow throughout hospitalization. Goals established and remained unchanged. Awaiting brother to sign consents for hospice. Emy Cole, CONTACT CENTER CONSULTANT May 07, 2017 13:38
--- NOTE | 2017-05-07 14:35 | PD.ONC.PN ---
Subjective Subjective Remarks Tmax 100.5 Pt resting in bed in no acute distress Answers "yes" to all questions asked No obvious bleeding Objective Data Date Time Temp Pulse Resp B/P (MAP) Pulse Ox O2 Delivery O2 Flow Rate FiO2 05/07/17 12:05 100.5 97 18 146/66 (92) 97 05/07/17 11:53 95 05/07/17 09:29 98 Nasal Cannula 2.00 05/07/17 08:02 100.1 96 18 137/60 (85) 99 05/07/17 06:46 100.2 95 20 103/70 (81) 98 05/07/17 00:53 99.6 98 20 132/60 (84) 98 05/06/17 20:01 99.5 101 21 119/61 (80) 100 05/06/17 18:00 99 05/06/17 17:32 84 05/06/17 15:40 100.5 98 17 154/67 (96) 99 05/07/17 05/07/17 05/07/17 07:00 15:00 23:00 Intake Total 1100 ml Output Total 1800 ml Balance -1800 ml 1100 ml Result Diagram: 05/07/17 0700 05/07/17 0700 Laboratory Results Laboratory Tests Test 05/07/17 07:00 05/07/17 10:15 White Blood Count 8.8 TH/MM3 Red Blood Count 3.05 MIL/MM3 Hemoglobin 9.8 GM/DL Hematocrit 28.8 % Mean Corpuscular Volume 94.3 FL Mean Corpuscular Hemoglobin 32.1 PG Mean Corpuscular Hemoglobin Concent 34.1 % Red Cell Distribution Width 14.2 % Platelet Count 73 TH/MM3 Mean Platelet Volume 8.6 FL Blood Urea Nitrogen 16 MG/DL Creatinine 0.44 MG/DL Random Glucose 93 MG/DL Calcium Level 8.0 MG/DL Sodium Level 149 MEQ/L Potassium Level 3.4 MEQ/L Chloride Level 118 MEQ/L Carbon Dioxide Level 22.3 MEQ/L Anion Gap 9 MEQ/L Estimat Glomerular Filtration Rate 144 ML/MIN Culture Results Microbiology Date/Time Source Procedure Growth Status 05/06/17 21:18 Blood Peripheral Aerobic Blood Culture - Preliminary NO GROWTH IN 1 DAY Resulted 05/06/17 21:18 Blood Peripheral Anaerobic Blood Culture - Preliminary NO GROWTH IN 1 DAY Resulted 05/06/17 21:13 Blood Peripheral Aerobic Blood Culture - Preliminary NO GROWTH IN 1 DAY Resulted 05/06/17 21:13 Blood Peripheral Anaerobic Blood Culture - Preliminary NO GROWTH IN 1 DAY Resulted 05/05/17 16:16 Urine Catheterized Urine Urine Culture - Final NO GROWTH IN 48 HOURS. Complete Administered Medications Medications (Trade) Dose Ordered Sig/Elizabet Route PRN Reason Start Time Stop Time Status Last Admin Dose Admin Albuterol Sulfate (Proair Hfa Inh) 2 puff QID INH 04/30/17 21:00 05/07/17 08:21 Budesonide/ Formoterol Fumarate (Symbicort 160-4.5 Inh) 2 puff BID INH 04/30/17 21:00 05/07/17 08:21 Citalopram Hydrobromide (CeleXA) 40 mg DAILY PO 05/01/17 09:00 05/04/17 09:53 Divalproex Sodium (Depakote Dr) 750 mg Q12HR PO 04/30/17 21:00 05/04/17 23:03 Docusate Sodium (Colace) 100 mg DAILY PO 05/01/17 09:00 05/04/17 09:53 Folic Acid (Folate) 1 mg DAILY PO 05/01/17 09:00 05/04/17 09:53 Lacosamide (Vimpat) 200 mg BID PO 04/30/17 21:00 05/04/17 23:02 Memantine (Namenda) 10 mg BID PO 04/30/17 21:00 05/04/17 23:03 Tiotropium [place] (Spiriva Inh) 18 mcg DAILY INH 05/01/17 09:00 05/07/17 08:21 Topiramate (Topamax) 100 mg BID PO 04/30/17 21:00 05/04/17 23:03 Enalaprilat (Vasotec Inj) 1.25 mg Q6H PRN IV PUSH SBP>150, DBP>90 04/30/17 18:30 05/06/17 02:22 Pantoprazole Sodium (Protonix) 40 mg DAILY PO 05/01/17 09:00 05/04/17 09:53 Levetriacetam 100 ml @ 400 mls/hr Q12HR IV 04/30/17 21:00 05/07/17 08:16 Chlorhexidine Gluconate (Chlorhexidine 2% Cloth) Taper DAILY@04 TOP 05/01/17 04:00 04/27/18 03:59 04/30/17 22:00 Sodium Chloride 1,000 ml @ 100 mls/hr Q10H IV 04/30/17 20:00 05/07/17 13:31 Insulin Human Regular (NovoLIN R SUPPLEMENTAL SCALE) 1 Q4HR SQ 04/30/17 20:00 05/02/17 20:31 Ceftriaxone Sodium 1000 mg/ Sodium Chloride 100 ml @ 200 mls/hr Q24H IV 04/30/17 21:00 05/06/17 22:15 Metoprolol Tartrate (Lopressor) 50 mg BID PO 05/03/17 09:00 05/04/17 23:03 Labetalol HCl (Trandate Inj) 20 mg Q3HR PRN IV PUSH SBP > 150 05/03/17 08:00 05/03/17 08:22 Hydralazine HCl (Apresoline) 50 mg Q8HR PRN PO SBP > 160 05/03/17 07:15 05/03/17 08:22 Phenytoin Sodium 150 mg/Sodium Chloride 53 ml @ 212 mls/hr Q8HR IV 05/04/17 14:00 05/07/17 05:49 Objective Remarks GENERAL: Older female resting in bed twirling hair in no acute distress SKIN: Warm and dry. Ecchymosis to R cheek HEAD: Normocephalic. EYES: No injection or drainage. NECK: Supple, trachea midline. CARDIOVASCULAR: Regular rate and rhythm without murmurs. RESPIRATORY: Breath sounds equal bilaterally. No accessory muscle use. GASTROINTESTINAL: Abdomen soft, non-tender, nondistended. EXTREMITIES: No cyanosis, or edema. SCD's to BLE. MUSCULOSKELETAL: Adequate muscle tone. NEUROLOGICAL: No obvious focal deficit. Awake, alert, and oriented x3. Assessment/Plan Problem List: (1) Thrombocytopenia ICD Codes: D69.6 - Thrombocytopenia, unspecified Plan: 07/07/16: Noted that Hgb dropped almost by 2 g/dL over last 24 hours. No obvious bleeding. Platelets stable. Poor prognosis and pt good candidate for Hospice- waiting on son to sign consents. Will check stool for occult blood. CBC in am. -- Thrombocytopenia likely due to a combination of infection from urinary tract as well as multiple medications such as ceftriaxone, Depakote, Keppra and Dilantin that can contribute to low platelets. -- Monitor CBC (2) Subdural hematoma ICD Codes: I62.00 - Nontraumatic subdural hemorrhage, unspecified Status: Acute Plan: -- Developed subdural hematoma after fall from snf -- Neurosurgery recommending conservative management -- Palliative following Assessment 61-year-old female admitted after fall found to have a subdural hematoma. She was admitted with a normal platelet count; hematology consulted when it dropped into the 70s. Attending Statement Does not follow commond plat are low. hospice appropriate. comfort measures, The exam, history, and the medical decision-making described in the above note were completed with the assistance of the mid-level provider. I reviewed and agree with the findings presented. I attest that I had a [id number] encounter with the patient on the same day, and personally performed and documented my assessment and findings in the medical record. Love Byers May 07, 2017 14:34 Eusebia Rainey MD May 07, 2017 17:55
[2017-05-07] MEDS: cefTRIAXone INJ 1,000 MG in SODIUM CHLORIDE 0.9% INJ 100 ML IV SCH (21:19)
[2017-05-08] MEDS: INSULIN NovoLIN REGULAR SUPPLEMENTAL SCALE SQ SCH ×6 (00:02→20:00)
[2017-05-08 04:26] VITALS: BP 129/59; PULSE 89; RESP 22; TEMP 99.2; O2SAT 99
[2017-05-08] MEDS: CHLORHEXIDINE GLUCONATE 2 % 1 PACK (2 CLOTHS) TOP SCH (04:57)
[2017-05-08] MEDS: SODIUM CHLORIDE 0.9% IV SCH (05:50)
[2017-05-08] MEDS: PHENYTOIN IV SCH (05:50)
[2017-05-08 08:01] VITALS: BP 128/61; PULSE 89; RESP 18; TEMP 100.2; O2SAT 99
[2017-05-08] MEDS: ALBUTEROL SULFATE 90 MCG/ACT HFA 8 GM INHALER INH SCH ×4 (08:02→22:19)
[2017-05-08] MEDS: levETIRAcetam 1000 MG INJ 100 ML IV SCH (08:22)
[2017-05-08] MEDS: LACOSAMIDE 100 MG TAB PO SCH ×2 (08:24→22:09)
[2017-05-08] MEDS: METOPROLOL TARTRATE 50 MG TAB PO SCH ×2 (08:24→22:08)
[2017-05-08] MEDS: MEMANTINE HCL 10 MG TAB PO SCH ×2 (08:24→22:10)
[2017-05-08] MEDS: DOCUSATE SODIUM 100 MG CAP PO SCH (08:24)
[2017-05-08] MEDS: DIVALPROEX SODIUM DELAYED RELEASE 250 MG TAB PO SCH ×2 (08:24→22:13)
[2017-05-08] MEDS: TOPIRAMATE 100 MG TAB PO SCH ×2 (08:24→22:13)
[2017-05-08] MEDS: PANTOPRAZOLE SOD 40 MG DELAYED RELEASE TAB PO SCH (08:25)
[2017-05-08] MEDS: CITALOPRAM HYDROBROMIDE 40 MG TAB PO SCH (08:25)
[2017-05-08] MEDS: FOLIC ACID 1 MG TAB PO SCH (08:25)
[2017-05-08 08:26] LABS: HEMATOCRIT 28.9 % (35.0-46.0); MEAN CELL VOLUME 94.6 FL (80.0-100.0); MEAN CORPUSCULAR HEMOGLOBIN 31.6 PG (27.0-34.0); MEAN CORPUSCULAR HGB CONC 33.4 % (32.0-36.0); PLATELET COUNT 126 TH/MM3 (150-450); RED BLOOD COUNT 3.06 MIL/MM3 (4.00-5.30); RED CELL DISTRIBUTION WIDTH 14.6 % (11.6-17.2); REVIEW FLAG FINAL; WHITE BLOOD COUNT 9.4 TH/MM3 (4.0-11.0)
[2017-05-08] MEDS: TIOTROPIUM BROMIDE 18 MCG INH INH SCH (09:00)
[2017-05-08] MEDS: BUDESONIDE-FORMOTEROL 160/4.5 MCG INHALER INH SCH ×2 (09:00→22:19)
[2017-05-08] MEDS: SODIUM CHLOR 0.9% 1000 ML INJ 1,000 ML IV SCH (11:36)
--- NOTE | 2017-05-08 11:42 | HHI.PR ---
Subjective Remarks Follow-up for intracranial bleed and decreased by mouth intake. Patient is nonverbal and intimately follow commands. Per patient's nurse she started eating yesterday and has good oral intake. She said that there is no issues. She continues to have low-grade fevers. Objective Vitals Vital Signs Date Time Temp Pulse Resp B/P (MAP) Pulse Ox O2 Delivery O2 Flow Rate FiO2 05/08/17 08:01 100.2 89 18 128/61 (83) 99 05/08/17 04:26 99.2 89 22 129/59 (82) 99 05/07/17 23:58 97.8 88 18 142/66 (91) 100 05/07/17 20:23 100.1 98 22 140/63 (88) 99 05/07/17 16:38 99.6 98 18 152/72 (98) 99 05/07/17 12:05 100.5 97 18 146/66 (92) 97 05/07/17 11:53 95 I/O 05/07/17 05/07/17 05/07/17 05/08/17 05/08/17 05/08/17 07:00 15:00 23:00 07:00 15:00 23:00 Intake Total 1310 ml 2552 ml 1100 ml Output Total 1800 ml 500 ml 500 ml 300 ml Balance -1800 ml 810 ml -500 ml 2252 ml 1100 ml Intake Oral 210 ml IV Total 1100 ml 2552 ml 1100 ml Output Urine Total 1800 ml 500 ml 500 ml 300 ml # Bowel Movements 0 0 Result Diagram: 05/08/17 0704 05/07/17 0700 Objective Remarks GENERAL: in NAD HEENT: PERRLA SKIN: Patient has a hematoma/bruise on her right temporal scleral area. CARDIOVASCULAR: Regular rate and rhythm without murmurs, gallops, or rubs. RESPIRATORY: Breath sounds equal bilaterally. No accessory muscle use. GASTROINTESTINAL: Abdomen soft, non-tender, nondistended. MUSCULOSKELETAL: No cyanosis, or edema. NEURO: Patient able to give me her first name. She repeats words. She is able to move her right upper arm and wiggle her toes. Otherwise unable to get any other type of exam from her. Medications and IVs Current Medications Lorazepam (Ativan Inj) 1 mg ONCE ONCE IM Last administered on 04/30/17t 15:32 ; Start 04/30/17 at 15:30; Stop 04/30/17 at 15:31; Status DC Albuterol Sulfate (Proair Hfa Inh) 2 puff QID INH Last administered on 08:02; Start 04/30/17 at 21:00 Budesonide/ Formoterol Fumarate (Symbicort 160-4.5 Inh) 2 puff BID INH Last administered on 05/08/17 09:00; Start 04/30/17 at 21:00 Citalopram Hydrobromide (CeleXA) 40 mg DAILY PO Last administered on 05/08/17 08:25; Start 05/01/17 at 09:00 Divalproex Sodium (Depakote Dr) 750 mg Q12HR PO Last administered on 05/08/17 08:24; Start 04/30/17 at 21:00 Docusate Sodium (Colace) 100 mg DAILY PO Last administered on 05/08/17 08:24; Start 05/01/17 at 09:00 Folic Acid (Folate) 1 mg DAILY PO Last administered on 05/08/17 08:25; Start 05/01/17 at 09:00 Lacosamide (Vimpat) 200 mg BID PO Last administered on 05/08/17 08:24; Start 04/30/17 at 21:00 Levetriacetam (Keppra) 1,000 mg TID PO ; Start 05/01/17 at 09:00; Status UNV Memantine (Namenda) 10 mg BID PO Last administered on 05/08/17 08:24; Start 04/30/17 at 21:00 Metoprolol Tartrate (Lopressor) 25 mg BID PO Last administered on 05/02/17 20: 32; Start 04/30/17 at 21:00; Stop 05/03/17 at 07:05; Status DC Phenytoin (Dilantin) 300 mg Q12HR PO ; Start 04/30/17 at 21:00; Status UNV Tiotropium [place] (Spiriva Inh) 18 mcg DAILY INH Last administered on 09:00; Start 05/01/17 at 09:00 Topiramate (Topamax) 100 mg BID PO Last administered on 05/08/17 08:24; Start 04/30/17 at 21:00 Enalaprilat (Vasotec Inj) 1.25 mg Q6H PRN IV PUSH SBP>150, DBP>90 Last administered on 05/06/17 02:22; Start 04/30/17 at 18:30 Pantoprazole Sodium (Protonix) 40 mg DAILY PO Last administered on 05/08/17 08 :25; Start 05/01/17 at 09:00 Phenytoin Sodium (Dilantin Inj) 200 mg Q8HR IV ; Start 04/30/17 at 22:00; Stop 05/03/17 at 06:58; Status DC Levetriacetam 100 ml @ 400 mls/hr Q12HR IV Last administered on 05/08/17 08: 22; Start 04/30/17 at 21:00 Albuterol/ Ipratropium (Duoneb Neb) 1 ampule Q6HR NEB INH Last administered on 05/04/17 15:56; Start 04/30/17 at 18:45; Stop 05/04/17 at 18:44; Status DC Albuterol/ Ipratropium (Duoneb Neb) 1 ampule Q2HR NEB PRN INH WHEEZING; Start 04/30/17 at 18:45 Miscellaneous Information 1 Q361D XX ; Start 04/30/17 at 18:45 Chlorhexidine Gluconate (Chlorhexidine 2% Cloth) Taper DAILY@04 TOP Last administered on 04/30/17 22:00; Start 05/01/17 at 04:00; Stop 04/27/18 at 03: 59 Chlorhexidine Gluconate (Chlorhexidine 2% Cloth) 3 pack UNSCH PRN TOP HYGIENIC CARE; Start 04/30/17 at 18:45 Sodium Chloride 1,000 ml @ 100 mls/hr Q10H IV Last administered on 05/08/17 11:36; Start 04/30/17 at 20:00 Dextrose (D50w (Vial) Inj) 50 ml UNSCH PRN IV PUSH HYPOGLYCEMIA-SEE COMMENTS; Start 04/30/17 at 18:45 Glucagon (Glucagon Inj) 1 mg UNSCH PRN OTHER HYPOGLYCEMIA-SEE COMMENTS; Start 04/30/17 at 18:45 Insulin Human Regular (NovoLIN R SUPPLEMENTAL SCALE) 1 Q4HR SQ Last administered on 05/02/17 20:31; Start 04/30/17 at 20:00 Ceftriaxone Sodium 1000 mg/ Sodium Chloride 100 ml @ 200 mls/hr Q24H IV Last administered on 05/07/17 21:19; Start 04/30/17 at 21:00 Phenytoin Sodium (Dilantin Inj) 150 mg Q8HR IV Last administered on 05/04/17 05:38; Start 05/03/17 at 14:00; Stop 05/04/17 at 15:33; Status DC Metoprolol Tartrate (Lopressor) 50 mg BID PO Last administered on 05/08/17 08: 24; Start 05/03/17 at 09:00 Labetalol HCl (Trandate Inj) 20 mg Q3HR PRN IV PUSH SBP > 150 Last administered on 05/03/17 08:22; Start 05/03/17 at 08:00 Hydralazine HCl (Apresoline) 50 mg Q8HR PRN PO SBP > 160 Last administered on 05/03/17 08:22; Start 05/03/17 at 07:15 Amlodipine Besylate (Norvasc) 5 mg DAILY PO Last administered on 05/04/17 09: 53; Start 05/03/17 at 09:00; Stop 05/04/17 at 12:28; Status DC Amlodipine Besylate (Norvasc) 5 mg ONCE ONCE PO Last administered on 12:30; Start 05/04/17 at 12:30; Stop 05/04/17 at 12:52; Status DC Amlodipine Besylate (Norvasc) 10 mg DAILY PO Last administered on 05/08/17 08: 24; Start 05/05/17 at 09:00 Phenytoin Sodium 150 mg/Sodium Chloride 53 ml @ 212 mls/hr Q8HR IV Last administered on 05/08/17 05:50; Start 05/04/17 at 14:00 Sodium Chloride 500 ml @ 500 mls/hr BOLUS ONCE IV Last administered on 15:00; Start 05/05/17 at 15:00; Stop 05/05/17 at 15:59; Status DC Sodium Chloride 500 ml @ 50 mls/hr Q10H IV ; Start 05/05/17 at 16:00; Stop 05/05/17 at 16:01; Status DC Sodium Chloride 500 ml @ 500 mls/hr BOLUS ONCE IV Last administered on t 18:43; Start 05/05/17 at 16:30; Stop 05/05/17 at 17:29; Status DC A/P Assessment and Plan 61-year-old female who presented with fall and confusion Acute left subdural hematoma with right occipital intraventricular blood and 7 mm midline shift toward the right. -Being managed by neurosurgeon. -Very poor prognosis. -CT scan was repeated and it was stable. -Mental status dye she has improved with hydration. Acute renal failure -Most likely secondary to dehydration. -Resolved with IV fluids and boluses. -Patient is now eating well. -Encourage oral intake. Hypertension -Controlled. Continue amlodipine. - Continue with when necessary medication Vasotec 1.25 mg IV q. 6-hour p.r.n. for systolic blood pressure greater than 150 or diastolic blood pressure greater than 90. History of seizure disorder. -Monitor neuro status closely and avoid any sedatives. Continue with antiseizure meds. The patient is on Vimpat 200 mg b.i.d. Keppra, Depakote, Topamax and Dilantin 200 mg IV q.8h. Dilantin and Depakote level checked on 05/05 within range. Urinary tract infection. -urine cultures grew with Providencia stuartii. Pending repeat blood cultures. once blood cultures are negative will discontinue Rocephin. Low-grade fever. -Workup showed 1 urine culture that was positive she was being covered with Rocephin. So far all cultures are negative and no leukocytosis. -Questionable dysregulation of temperature due to intracranial bleed. Thrombocytopenia -Improving. -Machine Stapler following. Hit panel ordered. -No signs of active bleeding. History of schizophrenia. -Continue home medication. DVT prophylaxis -Chemical anticoagulation prophylaxis contraindicated in the setting of [employer] bleed. Discharge Planning Very poor prognosis. Pending brother to sign forms for hospice but difficulty reaching her brother since he is homeless. Palliative care is following. If platelets continue to improve and negative hit panel and she has good oral intake she can be discharged to SNF. Sana Hankins MD May 08, 2017 11:42
--- NOTE | 2017-05-08 11:48 | PD.ONC.PN ---
Subjective Subjective Remarks Tmax 100.2 overnight. Patient non-verbal. Lying in bed in nad. Objective Data Date Time Temp Pulse Resp B/P (MAP) Pulse Ox O2 Delivery O2 Flow Rate FiO2 05/08/17 08:01 100.2 89 18 128/61 (83) 99 05/08/17 04:26 99.2 89 22 129/59 (82) 99 05/07/17 23:58 97.8 88 18 142/66 (91) 100 05/07/17 20:23 100.1 98 22 140/63 (88) 99 05/07/17 16:38 99.6 98 18 152/72 (98) 99 05/07/17 12:05 100.5 97 18 146/66 (92) 97 05/07/17 11:53 95 05/08/17 05/08/17 05/08/17 07:00 15:00 23:00 Intake Total 2552 ml 1100 ml Output Total 300 ml Balance 2252 ml 1100 ml Result Diagram: 05/08/17 0704 05/07/17 0700 Laboratory Results Laboratory Tests Test 05/08/17 07:04 White Blood Count 9.4 TH/MM3 Red Blood Count 3.06 MIL/MM3 Hemoglobin 9.7 GM/DL Hematocrit 28.9 % Mean Corpuscular Volume 94.6 FL Mean Corpuscular Hemoglobin 31.6 PG Mean Corpuscular Hemoglobin Concent 33.4 % Red Cell Distribution Width 14.6 % Platelet Count 126 TH/MM3 Mean Platelet Volume 8.5 FL Culture Results Microbiology Date/Time Source Procedure Growth Status 05/06/17 21:18 Blood Peripheral Aerobic Blood Culture - Preliminary NO GROWTH IN 2 DAYS Resulted 05/06/17 21:18 Blood Peripheral Anaerobic Blood Culture - Preliminary NO GROWTH IN 2 DAYS Resulted 05/06/17 21:13 Blood Peripheral Aerobic Blood Culture - Preliminary NO GROWTH IN 2 DAYS Resulted 05/06/17 21:13 Blood Peripheral Anaerobic Blood Culture - Preliminary NO GROWTH IN 2 DAYS Resulted 05/05/17 16:16 Urine Catheterized Urine Urine Culture - Final NO GROWTH IN 48 HOURS. Complete Administered Medications Medications (Trade) Dose Ordered Sig/Elizabet Route PRN Reason Start Time Stop Time Status Last Admin Dose Admin Albuterol Sulfate (Proair Hfa Inh) 2 puff QID INH 04/30/17 21:00 05/08/17 08:02 Budesonide/ Formoterol Fumarate (Symbicort 160-4.5 Inh) 2 puff BID INH 04/30/17 21:00 05/08/17 09:00 Citalopram Hydrobromide (CeleXA) 40 mg DAILY PO 05/01/17 09:00 05/08/17 08:25 Divalproex Sodium (Depakote Dr) 750 mg Q12HR PO 04/30/17 21:00 05/08/17 08:24 Docusate Sodium (Colace) 100 mg DAILY PO 05/01/17 09:00 05/08/17 08:24 Folic Acid (Folate) 1 mg DAILY PO 05/01/17 09:00 05/08/17 08:25 Lacosamide (Vimpat) 200 mg BID PO 04/30/17 21:00 05/08/17 08:24 Memantine (Namenda) 10 mg BID PO 04/30/17 21:00 05/08/17 08:24 Tiotropium [place] (Spiriva Inh) 18 mcg DAILY INH 05/01/17 09:00 05/08/17 09:00 Topiramate (Topamax) 100 mg BID PO 04/30/17 21:00 05/08/17 08:24 Enalaprilat (Vasotec Inj) 1.25 mg Q6H PRN IV PUSH SBP>150, DBP>90 04/30/17 18:30 05/06/17 02:22 Pantoprazole Sodium (Protonix) 40 mg DAILY PO 05/01/17 09:00 05/08/17 08:25 Levetriacetam 100 ml @ 400 mls/hr Q12HR IV 04/30/17 21:00 05/08/17 08:22 Chlorhexidine Gluconate (Chlorhexidine 2% Cloth) Taper DAILY@04 TOP 05/01/17 04:00 04/27/18 03:59 04/30/17 22:00 Sodium Chloride 1,000 ml @ 100 mls/hr Q10H IV 04/30/17 20:00 05/08/17 11:36 Insulin Human Regular (NovoLIN R SUPPLEMENTAL SCALE) 1 Q4HR SQ 04/30/17 20:00 05/02/17 20:31 Ceftriaxone Sodium 1000 mg/ Sodium Chloride 100 ml @ 200 mls/hr Q24H IV 04/30/17 21:00 05/07/17 21:19 Metoprolol Tartrate (Lopressor) 50 mg BID PO 05/03/17 09:00 05/08/17 08:24 Labetalol HCl (Trandate Inj) 20 mg Q3HR PRN IV PUSH SBP > 150 05/03/17 08:00 05/03/17 08:22 Hydralazine HCl (Apresoline) 50 mg Q8HR PRN PO SBP > 160 05/03/17 07:15 05/03/17 08:22 Amlodipine Besylate (Norvasc) 10 mg DAILY PO 05/05/17 09:00 05/08/17 08:24 Phenytoin Sodium 150 mg/Sodium Chloride 53 ml @ 212 mls/hr Q8HR IV 05/04/17 14:00 05/08/17 05:50 Objective Remarks GENERAL: Middle aged female supine in bed in [facility]. SKIN: Warm and dry. HEAD: Normocephalic. EYES: No injection or drainage. NECK: Supple, trachea midline. CARDIOVASCULAR: Regular rate and rhythm RESPIRATORY: Breath sounds equal bilaterally. No accessory muscle use. GASTROINTESTINAL: Abdomen soft, non-tender, nondistended. EXTREMITIES: No cyanosis NEUROLOGICAL: non-verbal. does not follow commands. does track with eyes. Assessment/Plan Problem List: (1) Thrombocytopenia ICD Codes: D69.6 - Thrombocytopenia, unspecified Plan: 05/08: platelets improved to 126K today. hemoglobin stable today. 05/07/17: Noted that Hgb dropped almost by 2 g/dL over last 24 hours. No obvious bleeding. Platelets stable. Poor prognosis and pt good candidate for Hospice- waiting on son to sign consents. Will check stool for occult blood. CBC in am. -- Thrombocytopenia likely due to a combination of infection from urinary tract as well as multiple medications such as ceftriaxone, Depakote, Keppra and Dilantin that can contribute to low platelets. -- Monitor CBC (2) Subdural hematoma ICD Codes: I62.00 - Nontraumatic subdural hemorrhage, unspecified Status: Acute Plan: -- Developed subdural hematoma after fall from senior [facility] -- Neurosurgery recommending conservative management -- Palliative following Assessment 61-year-old female admitted after fall found to have a subdural hematoma. She was admitted with a normal platelet count; hematology consulted when it dropped into the 70s. Attending Statement does not follow commands Non verbal Plat are coming up. I think her thrombocytopenia is from infection. She still has low grade fever. HIT is pending. But i think it will be negative given that plat are coming up/ The exam, history, and the medical decision-making described in the above note were completed with the assistance of the mid-level provider. I reviewed and agree with the findings presented. I attest that I had a [id number] encounter with the patient on the same day, and personally performed and documented my assessment and findings in the medical record. Kierra Wheelre May 08, 2017 11:48 Eusebia Rainey MD May 08, 2017 16:28
[2017-05-08 12:01] VITALS: BP 125/59; PULSE 90; RESP 18; TEMP 99.4; O2SAT 95
[2017-05-08] MEDS: PHENYTOIN SUSP 100 MG/4 ML CUP PO SCH ×2 (14:30→22:15)
[2017-05-08 16:00] VITALS: BP 138/66; PULSE 98; RESP 18; TEMP 99; O2SAT 98
[2017-05-08 17:13] LABS: HEPARIN AB OD 0.333 O.D. (0.000-0.300)
[2017-05-08 17:21] LABS: HEPARIN INDUCED PLATELET AB Weak Positive (NEGATIVE)
[2017-05-08 20:00] VITALS: BP 156/74; PULSE 96; RESP 22; TEMP 101.7; O2SAT 97
[2017-05-08] MEDS ORDERED: ACETAMINOPHEN 325 MG TAB PO PRN (20:45)
[2017-05-08] MEDS: levETIRAcetam 500 MG TAB PO SCH (22:12)
[2017-05-08 23:53] LABS: BACTERIA, URINE RARE /hpf; BLOOD, URINE TRACE (NEG); GLUCOSE,URINE 70 mg/dL (NEG); KETONE, URINE NEG (NEG); MUCUS URINE FEW /lpf (OCC); NITRITE,URINE NEG (NEG); TRANSITIONAL EPI CELLS, URINE <1 /hpf; URINE COLOR YELLOW (YELLW/STRAW)
[2017-05-08 23:54] LABS: COMMENT (UR) CULT NOT INDICATED; CULTURE IF INDICATED CULT NOT INDICATED
[2017-05-09] VITALS (7 sets, daily range): BP systolic 126–178; BP diastolic 60–91; PULSE 77–97; RESP 16–24; TEMP 98.9–100.3; O2SAT 94–100
--- NOTE | 2017-05-09 00:15 | RADRPT ---
EXAM DATE/TIME: 05/08/2017 23:35 [facility] COMPARISON: CHEST SINGLE AP, May 05, 2017, 14:59. INDICATIONS : Fever. MEDICAL HISTORY : Hypertension. Chronic obstructive pulmonary disease. SURGICAL HISTORY : Tubal ligation. ENCOUNTER: Subsequent ACUITY: 1 week PAIN SCORE: Non-responsive. LOCATION: Bilateral chest FINDINGS: A single view of the chest demonstrates the lungs to be symmetrically aerated without evidence of mas s, infiltrate or effusion. The cardiomediastinal contours are unremarkable. Old left rib fractures a re present. There is prominence of the aortic knob is with calcification characteristic of atheroscle rotic vascular disease. CONCLUSION: 1. No acute cardiopulmonary disease. Rui Dean MD on May 09, 2017 at 0:13 Board Certified Radiologist. This report was verified electronically.
[2017-05-09] MEDS: INSULIN NovoLIN REGULAR SUPPLEMENTAL SCALE SQ SCH ×6 (04:00→19:46)
[2017-05-09] MEDS: CHLORHEXIDINE GLUCONATE 2 % 1 PACK (2 CLOTHS) TOP SCH (04:00)
[2017-05-09] MEDS: PHENYTOIN SUSP 100 MG/4 ML CUP PO SCH ×3 (05:46→20:25)
--- NOTE | 2017-05-09 09:02 | PD.ONC.PN ---
Subjective Subjective Remarks Tmax 101.7 overnight. Patient resting in bed in nad. Non-verbal. Objective Data Date Time Temp Pulse Resp B/P (MAP) Pulse Ox O2 Delivery O2 Flow Rate FiO2 05/09/17 08:00 100.3 90 18 146/69 (94) 99 05/09/17 04:00 99.3 88 21 142/79 (100) 100 05/09/17 00:29 99.6 77 16 129/60 (83) 94 05/08/17 20:00 101.7 96 22 156/74 (101) 97 05/08/17 16:00 99.0 98 18 138/66 (90) 98 05/08/17 12:01 99.4 90 18 125/59 (81) 95 05/09/17 05/09/17 05/09/17 07:00 15:00 23:00 Output Total 450 ml Balance -450 ml Result Diagram: 05/08/17 0704 05/07/17 0700 Laboratory Results Laboratory Tests Test 05/08/17 23:35 Urine Color YELLOW Urine Turbidity CLEAR Urine pH 7.0 Urine Specific [place] 1.019 Urine Protein 30 mg/dL Urine Glucose (UA) 70 mg/dL Urine Ketones NEG mg/dL Urine Occult Blood TRACE Urine Nitrite NEG Urine Bilirubin NEG Urine Urobilinogen 8.0 MG/DL Urine Leukocyte Esterase NEG Urine RBC 12 /hpf Urine WBC 5 /hpf Urine Transitional Epithelial Cells <1 /hpf Urine Bacteria RARE /hpf Urine Mucus FEW /lpf Microscopic Urinalysis Comment CULT NOT INDICATED Culture Results Microbiology Date/Time Source Procedure Growth Status 05/09/17 00:10 Blood Peripheral Aerobic Blood Culture Pending Received 05/09/17 00:10 Blood Peripheral Anaerobic Blood Culture Pending Received 05/09/17 00:05 Blood Peripheral Aerobic Blood Culture Pending Received 05/09/17 00:05 Blood Peripheral Anaerobic Blood Culture Pending Received 05/06/17 21:18 Blood Peripheral Aerobic Blood Culture - Preliminary NO GROWTH IN 2 DAYS Resulted 05/06/17 21:18 Blood Peripheral Anaerobic Blood Culture - Preliminary NO GROWTH IN 2 DAYS Resulted 05/06/17 21:13 Blood Peripheral Aerobic Blood Culture - Preliminary NO GROWTH IN 2 DAYS Resulted 05/06/17 21:13 Blood Peripheral Anaerobic Blood Culture - Preliminary NO GROWTH IN 2 DAYS Resulted Administered Medications Medications (Trade) Dose Ordered Sig/Elizabet Route PRN Reason Start Time Stop Time Status Last Admin Dose Admin Albuterol Sulfate (Proair Hfa Inh) 2 puff QID INH 04/30/17 21:00 05/08/17 17:22 Budesonide/ Formoterol Fumarate (Symbicort 160-4.5 Inh) 2 puff BID INH 04/30/17 21:00 05/08/17 09:00 Citalopram Hydrobromide (CeleXA) 40 mg DAILY PO 05/01/17 09:00 05/08/17 08:25 Divalproex Sodium (Depakote Dr) 750 mg Q12HR PO 04/30/17 21:00 05/08/17 22:13 Docusate Sodium (Colace) 100 mg DAILY PO 05/01/17 09:00 05/08/17 08:24 Folic Acid (Folate) 1 mg DAILY PO 05/01/17 09:00 05/08/17 08:25 Lacosamide (Vimpat) 200 mg BID PO 04/30/17 21:00 05/08/17 22:09 Memantine (Namenda) 10 mg BID PO 04/30/17 21:00 05/08/17 22:10 Tiotropium [place] (Spiriva Inh) 18 mcg DAILY INH 05/01/17 09:00 05/08/17 09:00 Topiramate (Topamax) 100 mg BID PO 04/30/17 21:00 05/08/17 22:13 Enalaprilat (Vasotec Inj) 1.25 mg Q6H PRN IV PUSH SBP>150, DBP>90 04/30/17 18:30 05/06/17 02:22 Pantoprazole Sodium (Protonix) 40 mg DAILY PO 05/01/17 09:00 05/08/17 08:25 Chlorhexidine Gluconate (Chlorhexidine 2% Cloth) Taper DAILY@04 TOP 05/01/17 04:00 04/27/18 03:59 04/30/17 22:00 Insulin Human Regular (NovoLIN R SUPPLEMENTAL SCALE) 1 Q4HR SQ 04/30/17 20:00 05/02/17 20:31 Metoprolol Tartrate (Lopressor) 50 mg BID PO 05/03/17 09:00 05/08/17 22:08 Labetalol HCl (Trandate Inj) 20 mg Q3HR PRN IV PUSH SBP > 150 05/03/17 08:00 05/03/17 08:22 Hydralazine HCl (Apresoline) 50 mg Q8HR PRN PO SBP > 160 05/03/17 07:15 05/03/17 08:22 Amlodipine Besylate (Norvasc) 10 mg DAILY PO 05/05/17 09:00 05/08/17 08:24 Levetriacetam (Keppra) 1,000 mg Q12HR PO 05/08/17 21:00 05/08/17 22:12 Phenytoin (Dilantin Liq) 150 mg Q8HR PO 05/08/17 14:00 05/09/17 05:46 Objective Remarks GENERAL: chronically ill female sitting up in bed in [facility]. SKIN: Warm and dry. HEAD: Normocephalic. EYES: No injection or drainage. NECK: Supple, trachea midline. CARDIOVASCULAR: Regular rate and rhythm RESPIRATORY: anterior kuo clear. GASTROINTESTINAL: Abdomen soft, non-tender, nondistended. EXTREMITIES: No cyanosis NEUROLOGICAL: non-verbal. tracks with eyes. Assessment/Plan Problem List: (1) Thrombocytopenia ICD Codes: D69.6 - Thrombocytopenia, unspecified Plan: 05/09: platelets have recovered. hematology will sign off. please call or reconsult if needed. 05/07/17: Noted that Hgb dropped almost by 2 g/dL over last 24 hours. No obvious bleeding. Platelets stable. Poor prognosis and pt good candidate for Hospice- waiting on son to sign consents. Will check stool for occult blood. CBC in am. -- Thrombocytopenia likely due to a combination of infection from urinary tract as well as multiple medications such as ceftriaxone, Depakote, Keppra and Dilantin that can contribute to low platelets. -- Monitor CBC (2) Subdural hematoma ICD Codes: I62.00 - Nontraumatic subdural hemorrhage, unspecified Status: Acute Plan: -- Developed subdural hematoma after fall from [facility] -- Neurosurgery recommending conservative management -- Palliative following Assessment 61-year-old female admitted after fall found to have a subdural hematoma. She was admitted with a normal platelet count; hematology consulted when it dropped into the 70s. Attending Statement no new c/o HIT test is negative. No evidence of HIT. Plat are now back to normal. Sign off available prn. The exam, history, and the medical decision-making described in the above note were completed with the assistance of the mid-level provider. I reviewed and agree with the findings presented. I attest that I had a [id number] encounter with the patient on the same day, and personally performed and documented my assessment and findings in the medical record. Kierra Wheeler May 09, 2017 09:02 Eusebia Rainey MD May 09, 2017 17:37
--- NOTE | 2017-05-09 09:55 | HHI.PR ---
Subjective Remarks Follow-up for multiple medical conditions assessment plan Patient was taken off of IV antibiotics yesterday and spiked higher fevers today. Per nurse she has no other complaints. Patient continues to say simple words that do not make sense. She does not follow any commands and mostly stares. Objective Vitals Vital Signs Date Time Temp Pulse Resp B/P (MAP) Pulse Ox O2 Delivery O2 Flow Rate FiO2 05/09/17 08:00 100.3 90 18 146/69 (94) 99 05/09/17 04:00 99.3 88 21 142/79 (100) 100 05/09/17 00:29 99.6 77 16 129/60 (83) 94 05/08/17 20:00 101.7 96 22 156/74 (101) 97 05/08/17 16:00 99.0 98 18 138/66 (90) 98 05/08/17 12:01 99.4 90 18 125/59 (81) 95 I/O 05/08/17 05/08/17 05/08/17 05/09/17 05/09/17 05/09/17 07:00 15:00 23:00 07:00 15:00 23:00 Intake Total 2552 ml 1100 ml 1870 ml Output Total 300 ml 1000 ml 450 ml Balance 2252 ml 1100 ml 870 ml -450 ml Intake Oral 720 ml IV Total 2552 ml 1100 ml 1150 ml Output Urine Total 300 ml 1000 ml 450 ml # Bowel Movements 0 0 0 Result Diagram: 05/08/17 0704 05/07/17 0700 Objective Remarks GENERAL: in NAD HEENT: PERRLA SKIN: Patient has a hematoma/bruise on her right temporal scleral area. CARDIOVASCULAR: Regular rate and rhythm without murmurs, gallops, or rubs. RESPIRATORY: Breath sounds equal bilaterally. No accessory muscle use. GASTROINTESTINAL: Abdomen soft, non-tender, nondistended. MUSCULOSKELETAL: No cyanosis, or edema. NEURO: Patient does not answer any questions but she does repeat simple words and stares. She would not follow any commands but I see her move her right arm spontaneously. Medications and IVs Current Medications Lorazepam (Ativan Inj) 1 mg ONCE ONCE IM Last administered on 04/30/17t 15:32 ; Start 04/30/17 at 15:30; Stop 04/30/17 at 15:31; Status DC Albuterol Sulfate (Proair Hfa Inh) 2 puff QID INH Last administered on 10:06; Start 04/30/17 at 21:00 Budesonide/ Formoterol Fumarate (Symbicort 160-4.5 Inh) 2 puff BID INH Last administered on 05/09/17 10:06; Start 04/30/17 at 21:00 Citalopram Hydrobromide (CeleXA) 40 mg DAILY PO Last administered on 05/09/17 10:04; Start 05/01/17 at 09:00 Divalproex Sodium (Depakote Dr) 750 mg Q12HR PO Last administered on 05/09/17 10:04; Start 04/30/17 at 21:00 Docusate Sodium (Colace) 100 mg DAILY PO Last administered on 05/09/17 10:05; Start 05/01/17 at 09:00 Folic Acid (Folate) 1 mg DAILY PO Last administered on 05/09/17 10:05; Start 05/01/17 at 09:00 Lacosamide (Vimpat) 200 mg BID PO Last administered on 05/09/17 10:04; Start 04/30/17 at 21:00 Levetriacetam (Keppra) 1,000 mg TID PO ; Start 05/01/17 at 09:00; Status UNV Memantine (Namenda) 10 mg BID PO Last administered on 05/09/17 10:04; Start 04/30/17 at 21:00 Metoprolol Tartrate (Lopressor) 25 mg BID PO Last administered on 05/02/17 20: 32; Start 04/30/17 at 21:00; Stop 05/03/17 at 07:05; Status DC Phenytoin (Dilantin) 300 mg Q12HR PO ; Start 04/30/17 at 21:00; Status UNV Tiotropium [place] (Spiriva Inh) 18 mcg DAILY INH Last administered on 10:06; Start 05/01/17 at 09:00 Topiramate (Topamax) 100 mg BID PO Last administered on 05/09/17 10:04; Start 04/30/17 at 21:00 Enalaprilat (Vasotec Inj) 1.25 mg Q6H PRN IV PUSH SBP>150, DBP>90 Last administered on 05/06/17 02:22; Start 04/30/17 at 18:30 Pantoprazole Sodium (Protonix) 40 mg DAILY PO Last administered on 05/09/17 10 :05; Start 05/01/17 at 09:00 Phenytoin Sodium (Dilantin Inj) 200 mg Q8HR IV ; Start 04/30/17 at 22:00; Stop 05/03/17 at 06:58; Status DC Levetriacetam 100 ml @ 400 mls/hr Q12HR IV Last administered on 05/08/17 08: 22; Start 04/30/17 at 21:00; Stop 05/08/17 at 12:02; Status DC Albuterol/ Ipratropium (Duoneb Neb) 1 ampule Q6HR NEB INH Last administered on 05/04/17 15:56; Start 04/30/17 at 18:45; Stop 05/04/17 at 18:44; Status DC Albuterol/ Ipratropium (Duoneb Neb) 1 ampule Q2HR NEB PRN INH WHEEZING; Start 04/30/17 at 18:45 Miscellaneous Information 1 Q361D XX ; Start 04/30/17 at 18:45 Chlorhexidine Gluconate (Chlorhexidine 2% Cloth) Taper DAILY@04 TOP Last administered on 04/30/17 22:00; Start 05/01/17 at 04:00; Stop 04/27/18 at 03: 59 Chlorhexidine Gluconate (Chlorhexidine 2% Cloth) 3 pack UNSCH PRN TOP HYGIENIC CARE; Start 04/30/17 at 18:45 Sodium Chloride 1,000 ml @ 100 mls/hr Q10H IV Last administered on 05/08/17 11:36; Start 04/30/17 at 20:00; Stop 05/08/17 at 11:52; Status DC Dextrose (D50w (Vial) Inj) 50 ml UNSCH PRN IV PUSH HYPOGLYCEMIA-SEE COMMENTS; Start 04/30/17 at 18:45 Glucagon (Glucagon Inj) 1 mg UNSCH PRN OTHER HYPOGLYCEMIA-SEE COMMENTS; Start 04/30/17 at 18:45 Insulin Human Regular (NovoLIN R SUPPLEMENTAL SCALE) 1 Q4HR SQ Last administered on 05/02/17 20:31; Start 04/30/17 at 20:00 Ceftriaxone Sodium 1000 mg/ Sodium Chloride 100 ml @ 200 mls/hr Q24H IV Last administered on 05/07/17 21:19; Start 04/30/17 at 21:00; Stop 05/08/17 at 11: 52; Status DC Phenytoin Sodium (Dilantin Inj) 150 mg Q8HR IV Last administered on 05/04/17 05:38; Start 05/03/17 at 14:00; Stop 05/04/17 at 15:33; Status DC Metoprolol Tartrate (Lopressor) 50 mg BID PO Last administered on 05/09/17 10: 04; Start 05/03/17 at 09:00 Labetalol HCl (Trandate Inj) 20 mg Q3HR PRN IV PUSH SBP > 150 Last administered on 05/03/17 08:22; Start 05/03/17 at 08:00 Hydralazine HCl (Apresoline) 50 mg Q8HR PRN PO SBP > 160 Last administered on 05/03/17 08:22; Start 05/03/17 at 07:15 Amlodipine Besylate (Norvasc) 5 mg DAILY PO Last administered on 05/04/17 09: 53; Start 05/03/17 at 09:00; Stop 05/04/17 at 12:28; Status DC Amlodipine Besylate (Norvasc) 5 mg ONCE ONCE PO Last administered on 12:30; Start 05/04/17 at 12:30; Stop 05/04/17 at 12:52; Status DC Amlodipine Besylate (Norvasc) 10 mg DAILY PO Last administered on 05/09/17 10: 05; Start 05/05/17 at 09:00 Phenytoin Sodium 150 mg/Sodium Chloride 53 ml @ 212 mls/hr Q8HR IV Last administered on 05/08/17 05:50; Start 05/04/17 at 14:00; Stop 05/08/17 at 12:02 ; Status DC Sodium Chloride 500 ml @ 500 mls/hr BOLUS ONCE IV Last administered on 15:00; Start 05/05/17 at 15:00; Stop 05/05/17 at 15:59; Status DC Sodium Chloride 500 ml @ 50 mls/hr Q10H IV ; Start 05/05/17 at 16:00; Stop 05/05/17 at 16:01; Status DC Sodium Chloride 500 ml @ 500 mls/hr BOLUS ONCE IV Last administered on 18:43; Start 05/05/17 at 16:30; Stop 05/05/17 at 17:29; Status DC Levetriacetam (Keppra) 1,000 mg Q12HR PO Last administered on 05/09/17 10:05; Start 05/08/17 at 21:00 Phenytoin (Dilantin Liq) 150 mg Q8HR PO Last administered on 05/09/17 05:46; Start 05/08/17 at 14:00 Acetaminophen (Tylenol) 650 mg Q4H PRN PO fever >101 Last administered on 22:06; Start 05/08/17 at 20:45; Stop 05/08/17 at 23:13; Status DC Acetaminophen (Tylenol Supp) 650 mg Q6H PRN RECTAL fever >101; Start 05/08/17 at 23:15 A/P Assessment and Plan 61-year-old female who presented with fall and confusion Acute left subdural hematoma with right occipital intraventricular blood and 7 mm midline shift toward the right. -Being managed by neurosurgeon. -Very poor prognosis. -CT scan was repeated and it was stable. -Mental status dye she has improved with hydration. Fevers -Patient taken off of IV antibiotics yesterday since she completed treatment for her UTI and cultures are negative. She then spiked another fever. -Will need to do fever workup and get chest x-ray, UA, blood cultures. She has no leukocytosis. -Based on results will determine if I will restart antibiotics. Hypernatremic -Most likely patient is not taking in enough fluid intake. -Will need to restart IV fluids. Monitor sodium levels. Acute renal failure -Most likely secondary to dehydration. -Resolved with IV fluids and boluses. -Patient is now eating well. -Encourage oral intake. Hypertension -Controlled. Continue amlodipine. - Continue with when necessary medication Vasotec 1.25 mg IV q. 6-hour p.r.n. for systolic blood pressure greater than 150 or diastolic blood pressure greater than 90. History of seizure disorder. -Monitor neuro status closely and avoid any sedatives. Continue with antiseizure meds. The patient is on Vimpat 200 mg b.i.d. Keppra, Depakote, Topamax and Dilantin 200 mg IV q.8h. Dilantin and Depakote level checked on 05/05 within range. Urinary tract infection. -urine cultures grew with Providencia stuartii. Blood cultures were negative so Rocephin was discontinued yesterday. Thrombocytopenia -Improving. 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 Hit panel mildly weakened. -No signs of active bleeding. 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 History of schizophrenia. -Continue home medication. DVT prophylaxis -Chemical anticoagulation prophylaxis contraindicated in the setting of [employer] bleed. Discharge Planning Very poor prognosis. Pending brother to sign forms for hospice but difficulty reaching her brother since he is homeless. Palliative care is following. Patient now spiking fever and has hypernatremia. I will need to treat underlying medical condition unless it is confirmed that patient is definitely hospice and family does not want further treatment. Sana Hankins MD May 09, 2017 09:55
[2017-05-09] MEDS: DIVALPROEX SODIUM DELAYED RELEASE 250 MG TAB PO SCH ×2 (10:04→20:24)
[2017-05-09] MEDS: MEMANTINE HCL 10 MG TAB PO SCH ×2 (10:04→20:24)
[2017-05-09] MEDS: METOPROLOL TARTRATE 50 MG TAB PO SCH ×2 (10:04→20:25)
[2017-05-09] MEDS: TOPIRAMATE 100 MG TAB PO SCH ×2 (10:04→20:24)
[2017-05-09] MEDS: CITALOPRAM HYDROBROMIDE 40 MG TAB PO SCH (10:04)
[2017-05-09] MEDS: LACOSAMIDE 100 MG TAB PO SCH ×2 (10:04→20:22)
[2017-05-09] MEDS: levETIRAcetam 500 MG TAB PO SCH ×2 (10:05→20:24)
[2017-05-09] MEDS: FOLIC ACID 1 MG TAB PO SCH (10:05)
[2017-05-09] MEDS: DOCUSATE SODIUM 100 MG CAP PO SCH (10:05)
[2017-05-09] MEDS: PANTOPRAZOLE SOD 40 MG DELAYED RELEASE TAB PO SCH (10:05)
[2017-05-09] MEDS: BUDESONIDE-FORMOTEROL 160/4.5 MCG INHALER INH SCH ×2 (10:06→20:21)
[2017-05-09] MEDS: TIOTROPIUM BROMIDE 18 MCG INH INH SCH (10:06)
[2017-05-09] MEDS: ALBUTEROL SULFATE 90 MCG/ACT HFA 8 GM INHALER INH SCH ×4 (10:06→20:21)
[2017-05-09 10:30] LABS: HEMATOCRIT 31.3 % (35.0-46.0); MEAN CELL VOLUME 95.5 FL (80.0-100.0); MEAN CORPUSCULAR HGB CONC 33.5 % (32.0-36.0); PLATELET COUNT 168 TH/MM3 (150-450); RED BLOOD COUNT 3.27 MIL/MM3 (4.00-5.30); RED CELL DISTRIBUTION WIDTH 14.4 % (11.6-17.2); REVIEW FLAG FINAL; WHITE BLOOD COUNT 10.7 TH/MM3 (4.0-11.0)
[2017-05-09 10:44] LABS: BLOOD, URINE TRACE (NEG); GLUCOSE,URINE NEG (NEG); KETONE, URINE TRACE mg/dL (NEG); NITRITE,URINE NEG (NEG); PH, URINE 7.5 (5.0-8.5); SQUAMOUS EPITHELIAL CELL URINE <1 /hpf (0-5); URINE COLOR YELLOW (YELLW/STRAW)
[2017-05-09 10:46] LABS: BICARBONATE 23.7 MEQ/L (21.0-32.0); POTASSIUM 3.5 MEQ/L (3.5-5.1)
[2017-05-09 10:46] LABS: COMMENT (UR) CATH-CULT NOT IND; CULTURE IF INDICATED CATH CULTURE NOT IND
--- NOTE | 2017-05-09 12:15 | RADRPT ---
EXAM DATE/TIME: 05/09/2017 10:38 [facility] COMPARISON: CHEST SINGLE AP, May 08, 2017, 23:35. CHEST SINGLE AP, May 05, 2017, 14:59. INDICATIONS : Fever. MEDICAL HISTORY : Seizures. Hypertension. Chronic obstructive pulmonary disease. SURGICAL HISTORY : None. ENCOUNTER: Subsequent ACUITY: 3 days PAIN SCORE: Non-responsive. LOCATION: Bilateral chest FINDINGS: PA and lateral views of the chest demonstrate the lungs to be symmetrically aerated without evidence of mass, infiltrate or effusion. The cardiomediastinal contours are unremarkable. Osseous structure s are intact. CONCLUSION: No pneumonia or other acute cardiopulmonary disease demonstrated. Ernesto Parham MD on May 09, 2017 at 12:13 Board Certified Radiologist. This report was verified electronically.
[2017-05-09] MEDS: SODIUM CHLOR 0.9% 1000 ML INJ 1,000 ML IV SCH ×2 (14:06→22:45)
[2017-05-09] MEDS: ENALAPRILAT 1.25 MG/ML VIAL IV PUSH PRN (16:26)
[2017-05-10] VITALS: BP 130/70; PULSE 89; RESP 22; TEMP 99.7; O2SAT 98
[2017-05-10] MEDS: INSULIN NovoLIN REGULAR SUPPLEMENTAL SCALE SQ SCH ×6 (04:00→20:00)
[2017-05-10] MEDS: CHLORHEXIDINE GLUCONATE 2 % 1 PACK (2 CLOTHS) TOP SCH (04:00)
[2017-05-10 04:54] VITALS: BP 153/76; PULSE 95; RESP 24; TEMP 99.1; O2SAT 98
[2017-05-10] MEDS: PHENYTOIN SUSP 100 MG/4 ML CUP PO SCH ×4 (05:00→20:38)
[2017-05-10] MEDS: ENALAPRILAT 1.25 MG/ML VIAL IV PUSH PRN (05:00)
[2017-05-10 07:34] VITALS: BP 127/71; PULSE 91; RESP 18; TEMP 100.3; O2SAT 99
[2017-05-10] MEDS: SODIUM CHLOR 0.9% 1000 ML INJ 1,000 ML IV SCH ×2 (08:45→15:58)
[2017-05-10] MEDS: METOPROLOL TARTRATE 50 MG TAB PO SCH ×2 (09:40→20:39)
[2017-05-10] MEDS: DIVALPROEX SODIUM DELAYED RELEASE 250 MG TAB PO SCH ×2 (09:41→20:39)
[2017-05-10] MEDS: MEMANTINE HCL 10 MG TAB PO SCH ×2 (09:41→20:39)
[2017-05-10] MEDS: PANTOPRAZOLE SOD 40 MG DELAYED RELEASE TAB PO SCH (09:42)
[2017-05-10] MEDS: TOPIRAMATE 100 MG TAB PO SCH ×2 (09:42→20:39)
[2017-05-10] MEDS: LACOSAMIDE 100 MG TAB PO SCH ×2 (09:42→20:39)
[2017-05-10] MEDS: CITALOPRAM HYDROBROMIDE 40 MG TAB PO SCH (09:43)
[2017-05-10] MEDS: levETIRAcetam 500 MG TAB PO SCH ×2 (09:43→20:38)
[2017-05-10] MEDS: FOLIC ACID 1 MG TAB PO SCH (09:44)
[2017-05-10] MEDS: BUDESONIDE-FORMOTEROL 160/4.5 MCG INHALER INH SCH ×2 (09:44→20:40)
[2017-05-10] MEDS: DOCUSATE SODIUM 100 MG CAP PO SCH (09:44)
[2017-05-10] MEDS: ALBUTEROL SULFATE 90 MCG/ACT HFA 8 GM INHALER INH SCH ×4 (09:44→20:40)
[2017-05-10] MEDS: TIOTROPIUM BROMIDE 18 MCG INH INH SCH (09:45)
[2017-05-10] MEDS ORDERED: INFLUENZA VIRUS VACCINE (QUADRIVALENT) 0.5 ML SYR IM ONE (11:00)
--- NOTE | 2017-05-10 11:01 | HHI.PR ---
Subjective Remarks Follow-up for multiple medical conditions assessment plan. Pt encountered laying a bed. Sleeping. She did not awaken while being examined. Per nurse (Henrry) pt has no new issues. over night or since start of shift. Objective Vitals Vital Signs Date Time Temp Pulse Resp B/P (MAP) Pulse Ox O2 Delivery O2 Flow Rate FiO2 05/10/17 07:34 100.3 91 18 127/71 (89) 99 05/10/17 04:54 99.1 95 24 153/76 (101) 98 05/10/17 00:00 99.7 89 22 130/70 (90) 98 05/09/17 20:00 98.9 94 24 144/70 (94) 96 05/09/17 18:00 126/66 (86) 05/09/17 16:00 99.9 97 18 178/91 (120) 98 05/09/17 12:16 99.7 77 18 146/70 (95) 99 I/O 05/09/17 05/09/17 05/09/17 05/10/17 05/10/17 05/10/17 07:00 15:00 23:00 07:00 15:00 23:00 Intake Total 360 ml Output Total 450 ml 925 ml 300 ml Balance -450 ml -565 ml -300 ml Intake Oral 360 ml Output Urine Total 450 ml 925 ml 300 ml # Bowel Movements 0 1 1 Result Diagram: 05/09/17 0855 05/09/17 0855 Imaging Last Impressions Chest X-Ray 05/09/17 0000 Signed Impressions: Service Date/Time: May 10:38 - CONCLUSION: No pneumonia or other acute cardiopulmonary disease demonstrated. Ernesto Parham MD Head CT 05/05/17 0000 Signed Impressions: Service Date/Time: Friday, May 05, 2017 10:32 - CONCLUSION: The amount of extra-axial hemorrhage seen previously has clearly decreased on today's exam. The areas of intraparenchymal hemorrhage are stable with better defined surrounding edema. Ventricles remain dilated unchanged. Mayito Bess MD Pelvis X-Ray 04/30/17 1525 Signed Impressions: Service Date/Time: Sunday, April 30, 2017 15:51 - CONCLUSION: The bony pelvic ring is grossly intact. David Bhandari MD Cervical Spine CT 04/30/17 1525 Signed Impressions: Service Date/Time: Sunday, April 30, 2017 17:11 - CONCLUSION: No acute findings. Stable degenerative changes. David Bhandari MD Objective Remarks GENERAL: Pt encountered laying a bed, sleeping. NAD. SKIN: Warm and dry. Bruising noted at on back of hands, gauze/tape noted in the middle of the bruise sites. HEAD: Normocephalic. NECK: Supple, trachea midline. No lymphadenopathy. CARDIOVASCULAR: Regular rate and rhythm without murmurs, gallops, or rubs. RESPIRATORY: Breath sounds equal bilaterally. No accessory muscle use. GASTROINTESTINAL: Abdomen soft, non-tender, nondistended. Bowel sounds present, softly heard. all quadrants. MUSCULOSKELETAL: No cyanosis, or edema. Medications and IVs Current Medications Medications (Trade) Dose Ordered Sig/Elizabet Route Start Time Stop Time Status Last Admin (Proair Hfa Inh) 2 puff QID INH 04/30/17 21:00 05/10/17 09:44 (Symbicort 160-4.5 Inh) 2 puff BID INH 04/30/17 21:00 05/10/17 09:44 (CeleXA) 40 mg DAILY PO 05/01/17 09:00 05/10/17 09:43 (Depakote Dr) 750 mg Q12HR PO 04/30/17 21:00 05/10/17 09:41 (Colace) 100 mg DAILY PO 05/01/17 09:00 05/10/17 09:44 (Folate) 1 mg DAILY PO 05/01/17 09:00 05/10/17 09:44 (Vimpat) 200 mg BID PO 04/30/17 21:00 05/10/17 09:42 (Namenda) 10 mg BID PO 04/30/17 21:00 05/10/17 09:41 (Spiriva Inh) 18 mcg DAILY INH 05/01/17 09:00 05/10/17 09:45 (Topamax) 100 mg BID PO 04/30/17 21:00 05/10/17 09:42 (Vasotec Inj) 1.25 mg Q6H PRN IV PUSH 04/30/17 18:30 05/10/17 05:00 (Protonix) 40 mg DAILY PO 05/01/17 09:00 05/10/17 09:42 (Duoneb Neb) 1 ampule Q2HR NEB PRN INH 04/30/17 18:45 Miscellaneous Information 1 Q361D XX 04/30/17 18:45 (Chlorhexidine 2% Cloth) Taper DAILY@04 TOP 05/01/17 04:00 04/27/18 03:59 04/30/17 22:00 (Chlorhexidine 2% Cloth) 3 pack UNSCH PRN TOP 04/30/17 18:45 (D50w (Vial) Inj) 50 ml UNSCH PRN IV PUSH 04/30/17 18:45 (Glucagon Inj) 1 mg UNSCH PRN OTHER 04/30/17 18:45 (NovoLIN R SUPPLEMENTAL SCALE) 1 Q4HR SQ 04/30/17 20:00 05/02/17 20:31 (Lopressor) 50 mg BID PO 05/03/17 09:00 05/10/17 09:40 (Trandate Inj) 20 mg Q3HR PRN IV PUSH 05/03/17 08:00 05/03/17 08:22 (Apresoline) 50 mg Q8HR PRN PO 05/03/17 07:15 05/03/17 08:22 (Norvasc) 10 mg DAILY PO 05/05/17 09:00 05/10/17 09:44 (Keppra) 1,000 mg Q12HR PO 05/08/17 21:00 05/10/17 09:43 (Dilantin Liq) 150 mg Q8HR PO 05/08/17 14:00 05/10/17 05:00 (Tylenol Supp) 650 mg Q6H PRN RECTAL 05/08/17 23:15 Sodium Chloride 1,000 ml @ 100 mls/hr Q10H IV 05/09/17 12:45 05/10/17 08:45 Urinary Catheter: Yes Assessment to: Continue Hinds insert reason: Prolonged Immobilization A/P Assessment and Plan 61-year-old female who presented with fall and confusion Fevers: Noted to be 100.3 over night. Fever workup ongoing. Negative chest xray and UA. blood cultures pending. Hypernatremic: Pt with reduced food and fluid intake. Elevation believed to be secondary to lack of fluid intake. Hematology/oncology and Speech language pathology have signed off. Acute left subdural hematoma with right occipital intraventricular blood and 7 mm midline shift toward the right. -Being managed by neurosurgeon. -Very poor prognosis. -CT scan was repeated and it was stable. -Mental status dye she has improved with hydration. Fevers -Patient taken off of IV antibiotics yesterday since she completed treatment for her UTI and cultures are negative. She then spiked another fever. -Will need to do fever workup and get chest x-ray, UA, blood cultures. She has no leukocytosis. -Based on results will determine if I will restart antibiotics. Hypernatremic -Most likely patient is not taking in enough fluid intake. -Will need to restart IV fluids. Monitor sodium levels. Acute renal failure -Most likely secondary to dehydration. -Resolved with IV fluids and boluses. -Patient is now eating well. -Encourage oral intake. Hypertension -Controlled. Continue amlodipine. - Continue with when necessary medication Vasotec 1.25 mg IV q. 6-hour p.r.n. for systolic blood pressure greater than 150 or diastolic blood pressure greater than 90. History of seizure disorder. -Monitor neuro status closely and avoid any sedatives. Continue with antiseizure meds. The patient is on Vimpat 200 mg b.i.d. Keppra, Depakote, Topamax and Dilantin 200 mg IV q.8h. Dilantin and Depakote level checked on 05/05 within range. Urinary tract infection. -urine cultures grew with Providencia stuartii. Blood cultures were negative so Rocephin was discontinued yesterday. Thrombocytopenia -Improving. -Door Hanger following. Hit panel mildly weakened. -No signs of active bleeding. -Since thrombocytopenia is improving moss gatherer signed off. History of schizophrenia. -Continue home medication. 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 Discharge Planning Very poor prognosis. Pending brother to sign forms for hospice but difficulty reaching her brother since he is homeless. Palliative care is following. Hospice care has signed off at this time as they are unable to get the brother to sign documentation and said pt will need to return to SNF. Hugo Del Cid Jr. May 10, 2017 11:01
[2017-05-10 12:28] VITALS: BP 126/63; PULSE 80; RESP 18; TEMP 100.3; O2SAT 98
[2017-05-10 20:00] VITALS: BP 162/74; PULSE 91; RESP 20; TEMP 97; O2SAT 97
[2017-05-11] VITALS (7 sets, daily range): BP systolic 127–172; BP diastolic 66–77; PULSE 85–102; RESP 18–20; TEMP 98–102; O2SAT 96–99
[2017-05-11] MEDS: CHLORHEXIDINE GLUCONATE 2 % 1 PACK (2 CLOTHS) TOP SCH (04:00)
[2017-05-11] MEDS: INSULIN NovoLIN REGULAR SUPPLEMENTAL SCALE SQ SCH ×6 (04:00→22:29)
[2017-05-11] MEDS: SODIUM CHLOR 0.9% 1000 ML INJ 1,000 ML IV SCH ×2 (05:17→12:32)
[2017-05-11] MEDS: PHENYTOIN SUSP 100 MG/4 ML CUP PO SCH ×3 (05:17→21:07)
[2017-05-11] MEDS: ACETAMINOPHEN 650 MG SUPP RECTAL PRN (07:46)
[2017-05-11] MEDS: FOLIC ACID 1 MG TAB PO SCH (07:55)
[2017-05-11] MEDS: PANTOPRAZOLE SOD 40 MG DELAYED RELEASE TAB PO SCH (07:55)
[2017-05-11] MEDS: LACOSAMIDE 100 MG TAB PO SCH ×2 (07:55→21:07)
[2017-05-11] MEDS: levETIRAcetam 500 MG TAB PO SCH ×2 (07:55→21:08)
[2017-05-11] MEDS: CITALOPRAM HYDROBROMIDE 40 MG TAB PO SCH (07:55)
[2017-05-11] MEDS: TOPIRAMATE 100 MG TAB PO SCH ×2 (07:56→21:08)
[2017-05-11] MEDS: METOPROLOL TARTRATE 50 MG TAB PO SCH ×2 (07:56→21:07)
[2017-05-11] MEDS: DIVALPROEX SODIUM DELAYED RELEASE 250 MG TAB PO SCH ×2 (07:56→21:08)
[2017-05-11] MEDS: MEMANTINE HCL 10 MG TAB PO SCH ×2 (07:56→21:08)
[2017-05-11] MEDS: DOCUSATE SODIUM 100 MG CAP PO SCH (07:57)
[2017-05-11] MEDS: ALBUTEROL SULFATE 90 MCG/ACT HFA 8 GM INHALER INH SCH ×4 (07:57→21:09)
[2017-05-11] MEDS: TIOTROPIUM BROMIDE 18 MCG INH INH SCH (07:57)
[2017-05-11] MEDS: BUDESONIDE-FORMOTEROL 160/4.5 MCG INHALER INH SCH ×2 (07:57→21:09)
[2017-05-11] MEDS ORDERED: INFLUENZA VIRUS VACCINE (QUADRIVALENT) 0.5 ML SYR IM ONE (09:00)
--- NOTE | 2017-05-11 12:17 | HHI.PR ---
Subjective Remarks Follow-up for multiple medical conditions assessment plan. Pt encountered laying a bed. Sleeping. She did not awaken while being examined. Per nurse (Henrry, at bedside) pt was febrile this morning. Otherwise, no new issues noted over night or since start of shift. Objective Vitals Vital Signs Date Time Temp Pulse Resp B/P (MAP) Pulse Ox O2 Delivery O2 Flow Rate FiO2 05/11/17 08:16 102.0 97 20 149/71 (97) 99 05/11/17 04:00 98.0 93 20 133/66 (88) 97 05/10/17 20:00 97.0 91 20 162/74 (103) 97 05/10/17 12:28 100.3 80 18 126/63 (84) 98 I/O 05/10/17 05/10/17 05/10/17 05/11/17 05/11/17 05/11/17 07:00 15:00 23:00 07:00 15:00 23:00 Output Total 300 ml 1800 ml Balance -300 ml -1800 ml Output Urine Total 300 ml 1800 ml # Bowel Movements 1 2 Result Diagram: 05/09/17 0855 05/09/17 0855 Imaging Last Impressions Chest X-Ray 05/09/17 0000 Signed Impressions: Service Date/Time: May 10:38 - CONCLUSION: No pneumonia or other acute cardiopulmonary disease demonstrated. Ernesto Parham MD Head CT 05/05/17 0000 Signed Impressions: Service Date/Time: Friday, May 05, 2017 10:32 - CONCLUSION: The amount of extra-axial hemorrhage seen previously has clearly decreased on today's exam. The areas of intraparenchymal hemorrhage are stable with better defined surrounding edema. Ventricles remain dilated unchanged. Mayito Bess MD Pelvis X-Ray 04/30/17 1525 Signed Impressions: Service Date/Time: Sunday, April 30, 2017 15:51 - CONCLUSION: The bony pelvic ring is grossly intact. David Bhandari MD Cervical Spine CT 04/30/17 1525 Signed Impressions: Service Date/Time: Sunday, April 30, 2017 17:11 - CONCLUSION: No acute findings. Stable degenerative changes. David Bhandari MD Objective Remarks GENERAL: Pt encountered laying a bed, sleeping. NAD. SKIN: Warm and dry. Bruising noted at on back of hands, and under right eye. HEAD: Normocephalic. EYES: Non icteric, inflamed, or with drainage. As pt did not respond to command to open her eyes, they were gently opened. Pt was noted to be looking straight ahead. NECK: Supple, trachea midline. No lymphadenopathy. CARDIOVASCULAR: Regular rate and rhythm without murmurs, gallops, or rubs. RESPIRATORY: Breath sounds equal bilaterally. No accessory muscle use. GASTROINTESTINAL: Abdomen soft, non-tender, nondistended. Bowel sounds present, softly heard. all quadrants. MUSCULOSKELETAL: No cyanosis, or edema. Medications and IVs Current Medications Medications (Trade) Dose Ordered Sig/Elizabet Route Start Time Stop Time Status Last Admin (Proair Hfa Inh) 2 puff QID INH 04/30/17 21:00 05/10/17 20:40 (Symbicort 160-4.5 Inh) 2 puff BID INH 04/30/17 21:00 05/10/17 20:40 (CeleXA) 40 mg DAILY PO 05/01/17 09:00 05/11/17 07:55 (Depakote Dr) 750 mg Q12HR PO 04/30/17 21:00 05/11/17 07:56 (Colace) 100 mg DAILY PO 05/01/17 09:00 05/10/17 09:44 (Folate) 1 mg DAILY PO 05/01/17 09:00 05/11/17 07:55 (Vimpat) 200 mg BID PO 04/30/17 21:00 05/11/17 07:55 (Namenda) 10 mg BID PO 04/30/17 21:00 05/11/17 07:56 (Spiriva Inh) 18 mcg DAILY INH 05/01/17 09:00 05/10/17 09:45 (Topamax) 100 mg BID PO 04/30/17 21:00 05/11/17 07:56 (Vasotec Inj) 1.25 mg Q6H PRN IV PUSH 04/30/17 18:30 05/10/17 05:00 (Protonix) 40 mg DAILY PO 05/01/17 09:00 05/11/17 07:55 (Duoneb Neb) 1 ampule Q2HR NEB PRN INH 04/30/17 18:45 Miscellaneous Information 1 Q361D XX 04/30/17 18:45 (Chlorhexidine 2% Cloth) Taper DAILY@04 TOP 05/01/17 04:00 04/27/18 03:59 04/30/17 22:00 (Chlorhexidine 2% Cloth) 3 pack UNSCH PRN TOP 04/30/17 18:45 (D50w (Vial) Inj) 50 ml UNSCH PRN IV PUSH 04/30/17 18:45 (Glucagon Inj) 1 mg UNSCH PRN OTHER 04/30/17 18:45 (NovoLIN R SUPPLEMENTAL SCALE) 1 Q4HR SQ 04/30/17 20:00 05/02/17 20:31 (Lopressor) 50 mg BID PO 05/03/17 09:00 05/11/17 07:56 (Trandate Inj) 20 mg Q3HR PRN IV PUSH 05/03/17 08:00 05/03/17 08:22 (Apresoline) 50 mg Q8HR PRN PO 05/03/17 07:15 05/03/17 08:22 (Norvasc) 10 mg DAILY PO 05/05/17 09:00 05/11/17 07:55 (Keppra) 1,000 mg Q12HR PO 05/08/17 21:00 05/11/17 07:55 (Dilantin Liq) 150 mg Q8HR PO 05/08/17 14:00 05/11/17 05:17 (Tylenol Supp) 650 mg Q6H PRN RECTAL 05/08/17 23:15 05/11/17 07:46 Sodium Chloride 1,000 ml @ 100 mls/hr Q10H IV 05/09/17 12:45 05/11/17 05:17 Urinary Catheter: Yes A/P Assessment and Plan 61-year-old female who presented with fall and confusion Fevers: Noted to be 102.0 this morning, improved to 100.0 with Tylenol. Infectious disease consulted. Hypernatremic: Check labs in am Nutrition: Pt requiring others to feed eat. Ate little this am. Added Insure to diet. Acute left subdural hematoma with right occipital intraventricular blood and 7 mm midline shift toward the right. -Being managed by neurosurgeon. -Very poor prognosis. -CT scan was repeated and it was stable. -Mental status dye she has improved with hydration. Fevers -Patient taken off of IV antibiotics yesterday since she completed treatment for her UTI and cultures are negative. She then spiked another fever. -Will need to do fever workup and get chest x-ray, UA, blood cultures. She has no leukocytosis. -Based on results will determine if I will restart antibiotics. Hypernatremic -Most likely patient is not taking in enough fluid intake. -Will need to restart IV fluids. Monitor sodium levels. Acute renal failure -Most likely secondary to dehydration. -Resolved with IV fluids and boluses. -Patient is now eating well. -Encourage oral intake. Hypertension -Controlled. Continue amlodipine. - Continue with when necessary medication Vasotec 1.25 mg IV q. 6-hour p.r.n. for systolic blood pressure greater than 150 or diastolic blood pressure greater than 90. History of seizure disorder. -Monitor neuro status closely and avoid any sedatives. Continue with antiseizure meds. The patient is on Vimpat 200 mg b.i.d. Keppra, Depakote, Topamax and Dilantin 200 mg IV q.8h. Dilantin and Depakote level checked on 05/05 within range. Urinary tract infection. -urine cultures grew with Providencia stuartii. Blood cultures were negative so Rocephin was discontinued yesterday. Thrombocytopenia -Improving. -Pan Dumper following. Hit panel mildly weakened. -No signs of active bleeding. -Since thrombocytopenia is improving engineer second assistant signed off. History of schizophrenia. -Continue home medication. 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 Discussed with nursing and Dr. Arias. Discharge Planning Very poor prognosis. Pending brother to sign forms for hospice but difficulty reaching her brother since he is homeless. Palliative care is following. Hospice care has signed off at this time as they are unable to get the brother to sign documentation and said pt will need to return to SNF. Continuing to determine origin of fever. Suspect she will not be able to return to SNF until she is afebrile. Hugo Del Cid Jr. May 11, 2017 12:17
[2017-05-11 13:27] LABS: HEMATOCRIT 31.1 % (35.0-46.0); MEAN CELL VOLUME 96.4 FL (80.0-100.0); MEAN CORPUSCULAR HEMOGLOBIN 32.3 PG (27.0-34.0); MEAN CORPUSCULAR HGB CONC 33.5 % (32.0-36.0); PLATELET COUNT 192 TH/MM3 (150-450); RED BLOOD COUNT 3.23 MIL/MM3 (4.00-5.30); REVIEW FLAG FINAL; WHITE BLOOD COUNT 8.9 TH/MM3 (4.0-11.0)
[2017-05-11 13:53] LABS: BICARBONATE 21.8 MEQ/L (21.0-32.0); POTASSIUM 3.4 MEQ/L (3.5-5.1)
--- NOTE | 2017-05-11 14:34 | PD.ID.CON ---
History of Present Illness Service ID Consult Requested By LUCRETIA Calderón Reason for Consult Evaluation and M'ment of persistent fevers. Primary Care Physician Rui Rose MD Diagnoses: History of Present Illness Mrs. Hernandez is a 61 y/o CF with a PMHx of significant for seizure disorder, schizoaffective-bipolar disorder, hypertension, urinary incontinence, anxiety, arthritis. Patient arrived to ED via EMS on 04/30/17 for evaluation after a fall with loss of consciousness. Patient is a long-term resident of [facility]. As per medical records, patient endorses not feeling well, ambulated to the bathroom and fell. EMS was called to is scene. Upon ED arrival, patient was awake but not answering any questions. Head CT revealing contrecoup injury with large right scalp hematoma, left subdural hematoma, multifocal left. All parenchymal hemorrhages, right occipital intraventricular blood and 7 mm midline shift towards the right. No skull fracture seen. Chest x-ray and pelvis x-ray negative for acute process. UA positive for nitrates and leukocytes. Laboratory workup revealing WBC 10.8, Hgb 15.2, platelet count 157. BUN/creatinine 23/0.87. Liver enzymes within normal limits. Patient was admitted for further evaluation and management. Neurosurgery, Dr. Sahu consulted on 04/30/17 for evaluation of traumatic brain injury-intracranial hemorrhage. Cervical spine CT negative for acute finding. Follow-up head CT 05/01/17 revealing involving intracranial injuries and hemorrhage as described, no new acute findings. Left temporomandibular joint fracture/dislocation. Urine culture positive for Providencia Stuartii. Reviewed prior medical records, patient with multiple hospitalizations. Most recent from 01/11/17-01/14/17 secondary to altered mental status and lactic acidosis. Patient was returned to [facility]. Previous hospitalizations 12/07/16-12/10/16 secondary to seizure activity. Prior hospitalization 10/07/16 to 10/17/16 and 08/06/16 to 08/09/16 secondary to status epilepticus. At time of my evaluation, patient seen on regular medical floor. Lying in bed. Caregiver mentions she had pureed meal and is now resting. RN reports aphasic at baseline. No recent seizure activity. ID consulted for evaluation and Mment of persistent fevers. Review of Systems ROS Limitations: Altered Mental Status Past Family Social History Allergies: Coded Allergies: aripiprazole (Unverified Allergy, Unknown, 02/12/17) Past Medical History Seizure disorder Schizoaffective-bipolar disorder Hypertension Urinary incontinence Anxiety Arthritis Asthma Hyperlipidemia COPD Prior CVA Irritable bowel syndrome Right carotid artery stenosis Past Surgical History Tubal ligation Previous oral surgery, TMJ Bilateral ear surgery Reported Medications Reported Meds & Active Scripts Active Vimpat (Lacosamide) 100 Mg Tab 200 Mg PO BID Topamax (Topiramate) 100 Mg Tab 100 Mg PO BID Reported Namenda (Memantine) 10 Mg Tab 10 Mg PO BID Depakote DR (Divalproex Sodium) 250 Mg Tabdr 750 Mg PO Q12HR Folic Acid 0.4 Mg Tab 800 Mcg PO DAILY Dilantin (Phenytoin Extended) 100 Mg Cap 300 Mg PO Q12HR Metoprolol Tartrate 25 Mg Tab 25 Mg PO BID Colace (Docusate Sodium) 100 Mg Capsule 100 Mg PO DAILY Symbicort Inh (Budesonide/Formoterol Fumarate) 160-4.5 Mcg/Act Aero 2 Puff INH BID Ventolin Hfa 18 GM Inh (Albuterol Sulfate) 90 Mcg/Act Aer 2 Puff INH QID Spiriva Handihaler (Tiotropium Inh) 18 Mcg Cap 18 Mcg INH DAILY DO NOT SWALLOW CAPS Levetiracetam 1,000 Mg Tab 1,000 Mg PO TID Citalopram (Citalopram Hydrobromide) 40 Mg Tab 40 Mg PO DAILY Atorvastatin (Atorvastatin Calcium) 80 Mg Tab 80 Mg PO HS Aspirin EC (Aspirin) 81 Mg Tabdr 81 Mg PO DAILY Active Ordered Medications Current Medications Medications (Trade) Dose Ordered Sig/Elizabet Route Start Time Stop Time Status Last Admin (Proair Hfa Inh) 2 puff QID INH 04/30/17 21:00 05/10/17 20:40 (Symbicort 160-4.5 Inh) 2 puff BID INH 04/30/17 21:00 05/10/17 20:40 (CeleXA) 40 mg DAILY PO 05/01/17 09:00 05/11/17 07:55 (Depakote Dr) 750 mg Q12HR PO 04/30/17 21:00 05/11/17 07:56 (Colace) 100 mg DAILY PO 05/01/17 09:00 05/10/17 09:44 (Folate) 1 mg DAILY PO 05/01/17 09:00 05/11/17 07:55 (Vimpat) 200 mg BID PO 04/30/17 21:00 05/11/17 07:55 (Namenda) 10 mg BID PO 04/30/17 21:00 05/11/17 07:56 (Spiriva Inh) 18 mcg DAILY INH 05/01/17 09:00 05/10/17 09:45 (Topamax) 100 mg BID PO 04/30/17 21:00 05/11/17 07:56 (Vasotec Inj) 1.25 mg Q6H PRN IV PUSH 04/30/17 18:30 05/10/17 05:00 (Protonix) 40 mg DAILY PO 05/01/17 09:00 05/11/17 07:55 (Duoneb Neb) 1 ampule Q2HR NEB PRN INH 04/30/17 18:45 Miscellaneous Information 1 Q361D XX 04/30/17 18:45 (Chlorhexidine 2% Cloth) Taper DAILY@04 TOP 05/01/17 04:00 04/27/18 03:59 04/30/17 22:00 (Chlorhexidine 2% Cloth) 3 pack UNSCH PRN TOP 04/30/17 18:45 (D50w (Vial) Inj) 50 ml UNSCH PRN IV PUSH 04/30/17 18:45 (Glucagon Inj) 1 mg UNSCH PRN OTHER 04/30/17 18:45 (NovoLIN R SUPPLEMENTAL SCALE) 1 Q4HR SQ 04/30/17 20:00 05/02/17 20:31 (Lopressor) 50 mg BID PO 05/03/17 09:00 05/11/17 07:56 (Trandate Inj) 20 mg Q3HR PRN IV PUSH 05/03/17 08:00 05/03/17 08:22 (Apresoline) 50 mg Q8HR PRN PO 05/03/17 07:15 05/03/17 08:22 (Norvasc) 10 mg DAILY PO 05/05/17 09:00 05/11/17 07:55 (Keppra) 1,000 mg Q12HR PO 05/08/17 21:00 05/11/17 07:55 (Dilantin Liq) 150 mg Q8HR PO 05/08/17 14:00 05/11/17 12:31 (Tylenol Supp) 650 mg Q6H PRN RECTAL 05/08/17 23:15 05/11/17 07:46 Sodium Chloride 1,000 ml @ 100 mls/hr Q10H IV 05/09/17 12:45 05/11/17 12:32 Family History could not be obtained. Social History resident of [facility]. Physical Exam Vital Signs Vital Signs Date Time Temp Pulse Resp B/P (MAP) Pulse Ox O2 Delivery O2 Flow Rate FiO2 05/11/17 12:22 100.0 85 20 127/66 (86) 96 05/11/17 08:16 102.0 97 20 149/71 (97) 99 05/11/17 04:00 98.0 93 20 133/66 (88) 97 05/10/17 20:00 97.0 91 20 162/74 (103) 97 Physical Exam GENERAL: This is a well-nourished, well-developed patient, in no apparent distress. SKIN: No rashes, ecchymoses or lesions. Cool and dry. HEAD: Atraumatic. Normocephalic. No temporal or scalp tenderness. EYES: Pupils equal round and reactive. Extraocular motions intact. No scleral icterus. No injection or drainage. ENT: Grossly NAD. NECK: Trachea midline. Supple, nontender. CARDIOVASCULAR: Regular rate and rhythm without murmurs, gallops, or rubs. RESPIRATORY: Clear to auscultation. Breath sounds equal bilaterally. No wheezes , rales, or rhonchi. GASTROINTESTINAL: Abdomen soft, non-tender, nondistended. MUSCULOSKELETAL: Extremities without clubbing, cyanosis, or edema. NEUROLOGICAL: Opens eyes spontaneously. Did not follow commands. Psych could not be assessed. IV line sites with no e.o infection. Laboratory Laboratory Tests Test 05/11/17 12:53 White Blood Count 8.9 Red Blood Count 3.23 Hemoglobin 10.4 Hematocrit 31.1 Mean Corpuscular Volume 96.4 Mean Corpuscular Hemoglobin 32.3 Mean Corpuscular Hemoglobin Concent 33.5 Red Cell Distribution Width 15.0 Platelet Count 192 Mean Platelet Volume 7.8 Blood Urea Nitrogen 12 Creatinine 0.35 Random Glucose 123 Calcium Level 7.7 Sodium Level 144 Potassium Level 3.4 Chloride Level 115 Carbon Dioxide Level 21.8 Anion Gap 7 Estimat Glomerular Filtration Rate 188 Date/Time Source Procedure Growth Status 05/09/17 13:55 Blood Peripheral Aerobic Blood Culture - Preliminary NO GROWTH IN 2 DAYS Resulted 05/09/17 13:55 Blood Peripheral Anaerobic Blood Culture - Preliminary NO GROWTH IN 2 DAYS Resulted 05/05/17 16:16 Urine Catheterized Urine Urine Culture - Final NO GROWTH IN 48 HOURS. Complete Result Diagram: 05/11/17 1253 05/11/17 1253 Imaging Last Impressions Upper Extremity Ultrasound 05/11/17 0000 Signed Impressions: Service Date/Time: Thursday, May 11, 2017 17:20 - CONCLUSION: 1. No deep venous thrombosis in either lower extremity. 2. However, superficial thrombosis is seen in both cephalic veins. This is nonocclusive on the right with occlusive and nonocclusive segments on the left. Marty Clements MD Lower Extremity Ultrasound 05/11/17 0000 Signed Impressions: Service Date/Time: Thursday, May 11, 2017 17:06 - CONCLUSION: 1. Extensive DVT throughout the right lower extremity. Occlusive thrombus throughout the femoral and popliteal veins with nonocclusive thrombus in the trifurcation tributaries and central greater saphenous vein. 2. 3.4 cm popliteal cyst in the right knee. 3. No DVT on the left. Marty Clements MD Chest X-Ray 05/09/17 0000 Signed Impressions: Service Date/Time: May 10:38 - CONCLUSION: No pneumonia or other acute cardiopulmonary disease demonstrated. Ernesto Parham MD Head CT 05/05/17 0000 Signed Impressions: Service Date/Time: Friday, May 05, 2017 10:32 - CONCLUSION: The amount of extra-axial hemorrhage seen previously has clearly decreased on today's exam. The areas of intraparenchymal hemorrhage are stable with better defined surrounding edema. Ventricles remain dilated unchanged. Mayito Bess MD Pelvis X-Ray 04/30/17 1525 Signed Impressions: Service Date/Time: Sunday, April 30, 2017 15:51 - CONCLUSION: The bony pelvic ring is grossly intact. David Bhandari MD Cervical Spine CT 04/30/17 1525 Signed Impressions: Service Date/Time: Sunday, April 30, 2017 17:11 - CONCLUSION: No acute findings. Stable degenerative changes. David Bhandari MD Assessment and Plan Assessment and Plan Persistent fevers. Possible non infectious causes of fever: DVT, drug fever Possible drug fever: on Keppra and Dilantin Subdural hematoma ? central fever. Seizure disorder. Recs: Continue to observe off antibiotics. Doppler LE and UE to rule out DVT. Check Procalcitonin. Urine for eosinophils. CBC with diff, CMP in am. Likely non infectious cause of fever. At time of dictation of note: Doppler UE and LE both positive for thrombosis. Hospitalist to discuss with neurosurgery about timing or appropriateness of anticoagulation if advisable in this patient. Will follow along with you. Mis Beavers MD May 11, 2017 14:34
[2017-05-11 17:59] LABS: BLOOD, URINE SMALL (NEG); GLUCOSE,URINE 300 mg/dL (NEG); KETONE, URINE NEG (NEG); MUCUS URINE FEW /lpf (OCC); NITRITE,URINE NEG (NEG); SQUAMOUS EPITHELIAL CELL URINE 2 /hpf (0-5); URINE COLOR YELLOW (YELLW/STRAW)
[2017-05-11 18:03] LABS: COMMENT (UR) CATH-CULT NOT IND; CULTURE IF INDICATED CATH CULTURE NOT IND
--- NOTE | 2017-05-11 18:15 | RADRPT ---
EXAM DATE/TIME: 05/11/2017 17:06 [facility] COMPARISON: US LEG BILATERAL VENOUS DOPPLER, April 13, 2009, 20:50. INDICATIONS : Bilateral leg swelling. MEDICAL HISTORY : Chronic obstructive pulmonary disease. Stroke. Hypertension. Hearing loss. Seizures. Confusion. Dizzi ness. Anticoagulant therapy. Chest pain. Dyspnea. Arthritis. Schizophrenia. Anxiety. Depression. MRSA . SURGICAL HISTORY : Tubal ligation. Bilateral ear surgery. Jaw surgery. ENCOUNTER: Subsequent ACUITY: 1 day PAIN SCORE: Non-responsive LOCATION: Bilateral legs. TECHNIQUE: Venous ultrasound of the left and right leg was performed from the inguinal ligament to the proximal calf. Real-time, color Doppler and spectral tracing, compression and augmentation techniques were us ed. FINDINGS: RIGHT LEG: Extensive DVT throughout the right lower extremity. Occlusive thrombus is identified throughout the f emoral and popliteal veins with nonocclusive thrombus in the trifurcation tributaries and central gre ater saphenous vein. Elongated, 3.4 x 0.7 x 2.5 cm probable Cunningham's type cyst in the right popliteal fossa. LEFT LEG: There is normal compressibility of the deep venous system from the inguinal region to the proximal ca lf. No echogenic clot is seen in the lumen of the common femoral, femoral, popliteal, and posterior tibial veins. There is a normal response of the venous system to proximal and distal augmentation an d respiration. CONCLUSION: 1. Extensive DVT throughout the right lower extremity. Occlusive thrombus throughout the femoral and popliteal veins with nonocclusive thrombus in the trifurcation tributaries and central greater saphen ous vein. 2. 3.4 cm popliteal cyst in the right knee. 3. No DVT on the left. Marty Clements MD on May 11, 2017 at 18:10 Board Certified Radiologist. This report was verified electronically.
--- NOTE | 2017-05-11 18:18 | RADRPT ---
EXAM DATE/TIME: 05/11/2017 17:20 [facility] COMPARISON: No previous studies available for comparison. INDICATIONS : Bilateral arm swelling. MEDICAL HISTORY : Stroke. Hypertension. Chronic obstructive pulmonary disease. Hearing loss. Seizures. Confusion. Dizzi ness. Anticoagulant therapy. Chest pain. Dyspnea. Arthritis. Schizophrenia. Anxiety. Depression. MRSA . SURGICAL HISTORY : Tubal ligation. Bilateral ear surgery. Jaw surgery. ENCOUNTER: Initial ACUITY: 1 day PAIN SCORE: Non-responsive LOCATION: Bilateral arms. FINDINGS: RIGHT UPPER EXTREMITY: There is spontaneous flow documented in the brachial, basilic, axillary, and subclavian veins. The v essels are compressible and augmentation response is documented. No filling defects are seen. The f low is phasic with respiration. Direction of flow in the jugular vein is caudal. However, the cepha lic vein is incompletely compressible but maintains venous flow throughout. LEFT UPPER EXTREMITY: There is spontaneous flow documented in the brachial, basilic, axillary, and subclavian veins. The v essels are compressible and augmentation response is documented. No filling defects are seen. The f low is phasic with respiration. Direction of flow in the jugular vein is caudal. Echogenic thrombus in the mid cephalic vein. Occlusive and nonocclusive thrombus throughout the cephalic. CONCLUSION: 1. No deep venous thrombosis in either lower extremity. 2. However, superficial thrombosis is seen in both cephalic veins. This is nonocclusive on the right with occlusive and nonocclusive segments on the left. Marty Clements MD on May 11, 2017 at 18:14 Board Certified Radiologist. This report was verified electronically.
[2017-05-12] VITALS (7 sets, daily range): BP systolic 114–167; BP diastolic 60–81; PULSE 82–99; RESP 20–22; TEMP 98.4–100.3; O2SAT 97–99
[2017-05-12] MEDS: SODIUM CHLOR 0.9% 1000 ML INJ 1,000 ML IV SCH ×3 (00:45→08:37)
[2017-05-12] MEDS: CHLORHEXIDINE GLUCONATE 2 % 1 PACK (2 CLOTHS) TOP SCH (04:00)
[2017-05-12] MEDS: INSULIN NovoLIN REGULAR SUPPLEMENTAL SCALE SQ SCH ×6 (04:00→20:20)
[2017-05-12] MEDS: PHENYTOIN SUSP 100 MG/4 ML CUP PO SCH ×3 (05:31→22:19)
[2017-05-12 07:07] LABS: AUTOMATED NEUTROPHIL # 7.8 TH/MM3 (1.8-7.7); BASOPHIL # 0.1 TH/MM3 (0-0.2); BASOPHIL % 0.5 % (0.0-2.0); EOSINOPHIL # 0.2 TH/MM3 (0-0.4); EOSINOPHIL % 1.5 % (0.0-4.0); HEMATOCRIT 31.9 % (35.0-46.0); HEMO FLAGS DIFF FINAL; LYMPH % 12.4 % (9.0-44.0); LYMPHOCYTE # 1.4 TH/MM3 (1.0-4.8); MEAN CELL VOLUME 94.1 FL (80.0-100.0); MEAN CORPUSCULAR HEMOGLOBIN 30.7 PG (27.0-34.0); MEAN CORPUSCULAR HGB CONC 32.7 % (32.0-36.0); MONO % 16.8 % (0.0-8.0); NEUT % 68.8 % (16.0-70.0); PLATELET COUNT 255 TH/MM3 (150-450); RED BLOOD COUNT 3.39 MIL/MM3 (4.00-5.30); RED CELL DISTRIBUTION WIDTH 14.5 % (11.6-17.2); WHITE BLOOD COUNT 11.4 TH/MM3 (4.0-11.0)
[2017-05-12 07:28] LABS: ANION GAP 8 MEQ/L (5-15); AST (GOT) 266 U/L (15-37); BICARBONATE 22.7 MEQ/L (21.0-32.0); BLOOD UREA NITROGEN 13 MG/DL (7-18); CHLORIDE 114 MEQ/L (98-107); GLOMERULAR FILTRATION RATE 144 ML/MIN (>89); POTASSIUM 3.2 MEQ/L (3.5-5.1); SODIUM (NA) 145 MEQ/L (136-145)
[2017-05-12 07:31] LABS: ALKALINE PHOSPHATASE 107 U/L (45-117); ALT (GPT) 148 U/L (10-53); TOTAL BILIRUBIN ADULT 0.4 MG/DL (0.2-1.0)
[2017-05-12] MEDS: TIOTROPIUM BROMIDE 18 MCG INH INH SCH (07:38)
[2017-05-12] MEDS: BUDESONIDE-FORMOTEROL 160/4.5 MCG INHALER INH SCH ×2 (07:38→21:00)
[2017-05-12] MEDS: ALBUTEROL SULFATE 90 MCG/ACT HFA 8 GM INHALER INH SCH ×4 (07:38→21:00)
[2017-05-12] MEDS: CITALOPRAM HYDROBROMIDE 40 MG TAB PO SCH (08:32)
[2017-05-12] MEDS: LACOSAMIDE 100 MG TAB PO SCH ×2 (08:33→22:19)
[2017-05-12] MEDS: MEMANTINE HCL 10 MG TAB PO SCH ×2 (08:33→22:19)
[2017-05-12] MEDS: FOLIC ACID 1 MG TAB PO SCH (08:33)
[2017-05-12] MEDS: levETIRAcetam 500 MG TAB PO SCH ×2 (08:33→22:19)
[2017-05-12] MEDS: DOCUSATE SODIUM 100 MG CAP PO SCH (08:33)
[2017-05-12] MEDS: TOPIRAMATE 100 MG TAB PO SCH ×2 (08:33→22:19)
[2017-05-12] MEDS: PANTOPRAZOLE SOD 40 MG DELAYED RELEASE TAB PO SCH (08:33)
[2017-05-12] MEDS: DIVALPROEX SODIUM DELAYED RELEASE 250 MG TAB PO SCH ×2 (08:33→22:18)
[2017-05-12] MEDS: METOPROLOL TARTRATE 50 MG TAB PO SCH ×2 (08:34→22:18)
--- NOTE | 2017-05-12 09:29 | HHI.PR ---
Subjective Remarks Appears in nad. No n/v/d/c. K is low replaced. Patient with DVTs consult hem/ onc for coagulation choice. Objective Vitals Vital Signs Date Time Temp Pulse Resp B/P (MAP) Pulse Ox O2 Delivery O2 Flow Rate FiO2 05/12/17 07:55 98.6 96 20 139/70 (93) 98 05/12/17 05:27 98.5 05/12/17 04:47 100.3 99 20 167/81 (109) 97 05/12/17 00:07 99.2 82 20 148/69 (95) 98 05/11/17 21:20 99.9 05/11/17 21:01 101.1 05/11/17 20:20 99.7 102 18 172/77 (108) 98 05/11/17 16:30 98.1 89 19 145/67 (93) 99 05/11/17 12:22 100.0 85 20 127/66 (86) 96 I/O 05/11/17 05/11/17 05/11/17 05/12/17 05/12/17 05/12/17 07:00 15:00 23:00 07:00 15:00 23:00 Intake Total 240 ml 240 ml 1000 ml Output Total 1800 ml 1125 ml 500 ml 600 ml Balance -1800 ml -885 ml -260 ml 400 ml Intake Oral 240 ml Oral Supplement 240 ml IV Total 1000 ml Output Urine Total 1800 ml 1125 ml 500 ml 600 ml # Bowel Movements 2 0 0 Result Diagram: 05/12/17 0604 05/12/17 0604 Imaging Last Impressions Upper Extremity Ultrasound 05/11/17 0000 Signed Impressions: Service Date/Time: Thursday, May 11, 2017 17:20 - CONCLUSION: 1. No deep venous thrombosis in either lower extremity. 2. However, superficial thrombosis is seen in both cephalic veins. This is nonocclusive on the right with occlusive and nonocclusive segments on the left. Marty Clements MD Lower Extremity Ultrasound 05/11/17 0000 Signed Impressions: Service Date/Time: Thursday, May 11, 2017 17:06 - CONCLUSION: 1. Extensive DVT throughout the right lower extremity. Occlusive thrombus throughout the femoral and popliteal veins with nonocclusive thrombus in the trifurcation tributaries and central greater saphenous vein. 2. 3.4 cm popliteal cyst in the right knee. 3. No DVT on the left. Marty Clements MD Chest X-Ray 05/09/17 0000 Signed Impressions: Service Date/Time: May 10:38 - CONCLUSION: No pneumonia or other acute cardiopulmonary disease demonstrated. Ernesto Parham MD Head CT 05/05/17 0000 Signed Impressions: Service Date/Time: Friday, May 05, 2017 10:32 - CONCLUSION: The amount of extra-axial hemorrhage seen previously has clearly decreased on today's exam. The areas of intraparenchymal hemorrhage are stable with better defined surrounding edema. Ventricles remain dilated unchanged. Mayito Bess MD Pelvis X-Ray 04/30/17 1525 Signed Impressions: Service Date/Time: Sunday, April 30, 2017 15:51 - CONCLUSION: The bony pelvic ring is grossly intact. David Bhandari MD Cervical Spine CT 04/30/17 1525 Signed Impressions: Service Date/Time: Sunday, April 30, 2017 17:11 - CONCLUSION: No acute findings. Stable degenerative changes. David Bhandari MD Objective Remarks GENERAL: Pt encountered laying a bed, sleeping. NAD. SKIN: Warm and dry. Bruising noted at on back of hands, and under right eye. HEAD: Normocephalic. EYES: Non icteric, inflamed, or with drainage. As pt did not respond to command to open her eyes, they were gently opened. Pt was noted to be looking straight ahead. NECK: Supple, trachea midline. No lymphadenopathy. CARDIOVASCULAR: Regular rate and rhythm without murmurs, gallops, or rubs. RESPIRATORY: Breath sounds equal bilaterally. No accessory muscle use. GASTROINTESTINAL: Abdomen soft, non-tender, nondistended. Bowel sounds present, softly heard. all quadrants. MUSCULOSKELETAL: No cyanosis, or edema. A/P Assessment and Plan 61-year-old female who presented with fall and confusion Fevers: Noted to be 102.0 this morning, improved to 100.0 with Tylenol. Infectious disease consulted. Hypernatremic: Check labs in am Nutrition: Pt requiring others to feed eat. Ate little this am. Added Insure to diet. Acute left subdural hematoma with right occipital intraventricular blood and 7 mm midline shift toward the right. -Being managed by neurosurgeon. -Very poor prognosis. -CT scan was repeated and it was stable. -Mental status dye she has improved with hydration. Fevers -Patient taken off of IV antibiotics yesterday since she completed treatment for her UTI and cultures are negative. She then spiked another fever. -Will need to do fever workup and get chest x-ray, UA, blood cultures. She has no leukocytosis. -Based on results will determine if I will restart antibiotics. Hypernatremic -Most likely patient is not taking in enough fluid intake. -Will need to restart IV fluids. Monitor sodium levels. Acute renal failure -Most likely secondary to dehydration. -Resolved with IV fluids and boluses. -Patient is now eating well. -Encourage oral intake. Hypertension -Controlled. Continue amlodipine. - Continue with when necessary medication Vasotec 1.25 mg IV q. 6-hour p.r.n. for systolic blood pressure greater than 150 or diastolic blood pressure greater than 90. History of seizure disorder. -Monitor neuro status closely and avoid any sedatives. Continue with antiseizure meds. The patient is on Vimpat 200 mg b.i.d. Keppra, Depakote, Topamax and Dilantin 200 mg IV q.8h. Dilantin and Depakote level checked on 05/05 within range. Urinary tract infection. -urine cultures grew with Providencia stuartii. Blood cultures were negative so Rocephin was discontinued yesterday. Thrombocytopenia -Improving. -Applied Psychology Chair following. Hit panel mildly weakened. -No signs of active bleeding. -Since thrombocytopenia is improving speedometer mechanic signed off. DVT: patient with h.o intracranial bleed. Will consult hem/onc for further recommendation regarding anticoagulation. History of schizophrenia. -Continue home medication. 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 Discharge Planning Very poor prognosis. Pending brother to sign forms for hospice but difficulty reaching her brother since he is homeless. Palliative care is following. Hospice care has signed off at this time as they are unable to get the brother to sign documentation and said pt will need to return to SNF. Continuing to determine origin of fever. Suspect she will not be able to return to SNF until she is afebrile. Esperanza Arias MD May 12, 2017 09:29
[2017-05-12] MEDS ORDERED: POTASSIUM BICARBONATE 25 MEQ EFFERVESCENT TAB PO ONE (11:15)
[2017-05-13] VITALS (7 sets, daily range): BP systolic 111–162; BP diastolic 59–76; PULSE 67–93; RESP 18–22; TEMP 98.1–101.2; O2SAT 97–100
[2017-05-13] MEDS: CHLORHEXIDINE GLUCONATE 2 % 1 PACK (2 CLOTHS) TOP SCH (04:00)
[2017-05-13] MEDS: INSULIN NovoLIN REGULAR SUPPLEMENTAL SCALE SQ SCH ×6 (04:45→20:00)
[2017-05-13] MEDS: PHENYTOIN SUSP 100 MG/4 ML CUP PO SCH ×3 (05:05→21:29)
[2017-05-13] MEDS: PANTOPRAZOLE SOD 40 MG DELAYED RELEASE TAB PO SCH (08:18)
[2017-05-13] MEDS: FOLIC ACID 1 MG TAB PO SCH (08:19)
[2017-05-13] MEDS: levETIRAcetam 500 MG TAB PO SCH ×2 (08:19→21:29)
[2017-05-13] MEDS: METOPROLOL TARTRATE 50 MG TAB PO SCH ×2 (08:19→21:29)
[2017-05-13] MEDS: CITALOPRAM HYDROBROMIDE 40 MG TAB PO SCH (08:20)
[2017-05-13] MEDS: DOCUSATE SODIUM 100 MG CAP PO SCH (08:20)
[2017-05-13] MEDS: LACOSAMIDE 100 MG TAB PO SCH ×2 (08:20→21:28)
[2017-05-13] MEDS: TOPIRAMATE 100 MG TAB PO SCH ×2 (08:20→21:29)
[2017-05-13] MEDS: MEMANTINE HCL 10 MG TAB PO SCH ×2 (08:20→21:29)
[2017-05-13] MEDS: DIVALPROEX SODIUM DELAYED RELEASE 250 MG TAB PO SCH ×2 (08:20→21:28)
[2017-05-13] MEDS: ALBUTEROL SULFATE 90 MCG/ACT HFA 8 GM INHALER INH SCH ×4 (10:09→21:30)
[2017-05-13] MEDS: BUDESONIDE-FORMOTEROL 160/4.5 MCG INHALER INH SCH ×2 (10:09→21:30)
[2017-05-13] MEDS: TIOTROPIUM BROMIDE 18 MCG INH INH SCH (10:09)
--- NOTE | 2017-05-13 11:07 | HHI.PR ---
Subjective Remarks In bed she is fed by the nurse. She is noted confused. Doesn't appear in acute distress. Objective Vitals Vital Signs Date Time Temp Pulse Resp B/P (MAP) Pulse Ox O2 Delivery O2 Flow Rate FiO2 05/13/17 08:13 98.8 91 18 138/63 (88) 98 05/13/17 05:20 98.7 90 18 130/67 (88) 100 05/13/17 01:46 67 111/59 (76) 05/13/17 00:42 99.9 75 18 162/67 (98) 99 05/12/17 19:50 99.0 98 20 135/60 (85) 98 05/12/17 16:31 99.3 87 22 114/62 (79) 98 05/12/17 12:13 98.4 84 20 144/70 (94) 99 I/O 05/12/17 05/12/17 05/12/17 05/13/17 05/13/17 05/13/17 07:00 15:00 23:00 07:00 15:00 23:00 Intake Total 1000 ml 360 ml 120 ml Output Total 600 ml 650 ml 100 ml Balance 400 ml 360 ml -530 ml -100 ml Intake Oral 360 ml 120 ml IV Total 1000 ml Output Urine Total 600 ml 650 ml 100 ml # Bowel Movements 0 2 0 Result Diagram: 05/12/1704 05/12/17 0604 Imaging Last Impressions Upper Extremity Ultrasound 05/11/17 0000 Signed Impressions: Service Date/Time: Thursday, May 11, 2017 17:20 - CONCLUSION: 1. No deep venous thrombosis in either lower extremity. 2. However, superficial thrombosis is seen in both cephalic veins. This is nonocclusive on the right with occlusive and nonocclusive segments on the left. Marty Clements MD Lower Extremity Ultrasound 05/11/17 0000 Signed Impressions: Service Date/Time: Thursday, May 11, 2017 17:06 - CONCLUSION: 1. Extensive DVT throughout the right lower extremity. Occlusive thrombus throughout the femoral and popliteal veins with nonocclusive thrombus in the trifurcation tributaries and central greater saphenous vein. 2. 3.4 cm popliteal cyst in the right knee. 3. No DVT on the left. Marty Clements MD Chest X-Ray 05/09/17 0000 Signed Impressions: Service Date/Time: May 10:38 - CONCLUSION: No pneumonia or other acute cardiopulmonary disease demonstrated. Ernesto Parham MD Head CT 05/05/17 0000 Signed Impressions: Service Date/Time: Friday, May 05, 2017 10:32 - CONCLUSION: The amount of extra-axial hemorrhage seen previously has clearly decreased on today's exam. The areas of intraparenchymal hemorrhage are stable with better defined surrounding edema. Ventricles remain dilated unchanged. Mayito Bess MD Pelvis X-Ray 04/30/17 1525 Signed Impressions: Service Date/Time: Sunday, April 30, 2017 15:51 - CONCLUSION: The bony pelvic ring is grossly intact. David Bhandari MD Cervical Spine CT 04/30/17 1525 Signed Impressions: Service Date/Time: Sunday, April 30, 2017 17:11 - CONCLUSION: No acute findings. Stable degenerative changes. David Bhandari MD Objective Remarks GENERAL: Pt encountered laying a bed, sleeping. NAD. SKIN: Warm and dry. Bruising noted at on back of hands, and under right eye. HEAD: Normocephalic. EYES: Non icteric, inflamed, or with drainage. As pt did not respond to command to open her eyes, they were gently opened. Pt was noted to be looking straight ahead. NECK: Supple, trachea midline. No lymphadenopathy. CARDIOVASCULAR: Regular rate and rhythm without murmurs, gallops, or rubs. RESPIRATORY: Breath sounds equal bilaterally. No accessory muscle use. GASTROINTESTINAL: Abdomen soft, non-tender, nondistended. Bowel sounds present, softly heard. all quadrants. MUSCULOSKELETAL: No cyanosis, or edema. A/P Assessment and Plan 61-year-old female who presented with fall and confusion Fevers: Noted to be 102.0 , improved to 100.0 with Tylenol. Infectious disease consulted. Hypernatremic: Na improving. Check labs in am. Nutrition: Pt requiring others to feed eat. Ate little this am. Added Insure to diet. Acute left subdural hematoma with right occipital intraventricular blood and 7 mm midline shift toward the right. -Being managed by neurosurgeon. -Very poor prognosis. -CT scan was repeated and it was stable. -Mental status dye she has improved with hydration. Fevers -Patient taken off of IV antibiotics yesterday since she completed treatment for her UTI and cultures are negative. She then spiked another fever. -Will need to do fever workup and get chest x-ray, UA, blood cultures. She has no leukocytosis. -Based on results will determine if I will restart antibiotics. Hypernatremic -Most likely patient is not taking in enough fluid intake. -Will need to restart IV fluids. Monitor sodium levels. Acute renal failure -Most likely secondary to dehydration. -Resolved with IV fluids and boluses. -Patient is now eating well. -Encourage oral intake. Hypertension -Controlled. Continue amlodipine. - Continue with when necessary medication Vasotec 1.25 mg IV q. 6-hour p.r.n. for systolic blood pressure greater than 150 or diastolic blood pressure greater than 90. History of seizure disorder. -Monitor neuro status closely and avoid any sedatives. Continue with antiseizure meds. The patient is on Vimpat 200 mg b.i.d. Keppra, Depakote, Topamax and Dilantin 200 mg IV q.8h. Dilantin and Depakote level checked on 05/05 within range. Urinary tract infection. -urine cultures grew with Providencia stuartii. Blood cultures were negative so Rocephin was discontinued yesterday. Thrombocytopenia -Improving. -Shuttle Truck Driver following. Hit panel mildly weakened. -No signs of active bleeding. -Since thrombocytopenia is improving machine milker signed off. DVT: patient with h.o intracranial bleed. Will consult hem/onc for further recommendation regarding anticoagulation. History of schizophrenia. -Continue home medication. 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 Discharge Planning Very poor prognosis. Pending brother to sign forms for hospice but difficulty reaching her brother since he is homeless. Palliative care is following. Hospice care has signed off at this time as they are unable to get the brother to sign documentation and said pt will need to return to SNF. Continuing to determine origin of fever. Suspect she will not be able to return to SNF until she is afebrile. Esperanza Arias MD May 13, 2017 11:07
--- NOTE | 2017-05-13 12:43 | PD.ONC.PN ---
Subjective Subjective Remarks Afebrile overnight. Patient remains non-verbal. Hematology reconsulted for anticoagulation recommendations as DVT found in lower extremity Objective Data Date Time Temp Pulse Resp B/P (MAP) Pulse Ox O2 Delivery O2 Flow Rate FiO2 05/13/17 08:13 98.8 91 18 138/63 (88) 98 05/13/17 05:20 98.7 90 18 130/67 (88) 100 05/13/17 01:46 67 111/59 (76) 05/13/17 00:42 99.9 75 18 162/67 (98) 99 05/12/17 19:50 99.0 98 20 135/60 (85) 98 05/12/17 16:31 99.3 87 22 114/62 (79) 98 05/13/17 05/13/17 05/13/17 07:00 15:00 23:00 Output Total 100 ml Balance -100 ml Result Diagram: 05/12/17 0604 05/12/17 0604 Administered Medications Medications (Trade) Dose Ordered Sig/Elizabet Route PRN Reason Start Time Stop Time Status Last Admin Dose Admin Albuterol Sulfate (Proair Hfa Inh) 2 puff QID INH 04/30/17 21:00 05/13/17 12:01 Budesonide/ Formoterol Fumarate (Symbicort 160-4.5 Inh) 2 puff BID INH 04/30/17 21:00 05/13/17 10:09 Citalopram Hydrobromide (CeleXA) 40 mg DAILY PO 05/01/17 09:00 05/13/17 08:20 Divalproex Sodium (Depakote Dr) 750 mg Q12HR PO 04/30/17 21:00 05/13/17 08:20 Docusate Sodium (Colace) 100 mg DAILY PO 05/01/17 09:00 05/13/17 08:20 Folic Acid (Folate) 1 mg DAILY PO 05/01/17 09:00 05/13/17 08:19 Lacosamide (Vimpat) 200 mg BID PO 04/30/17 21:00 05/13/17 08:20 Memantine (Namenda) 10 mg BID PO 04/30/17 21:00 05/13/17 08:20 Tiotropium Lignum (Spiriva Inh) 18 mcg DAILY INH 05/01/17 09:00 05/13/17 10:09 Topiramate (Topamax) 100 mg BID PO 04/30/17 21:00 05/13/17 08:20 Enalaprilat (Vasotec Inj) 1.25 mg Q6H PRN IV PUSH SBP>150, DBP>90 04/30/17 18:30 05/10/17 05:00 Pantoprazole Sodium (Protonix) 40 mg DAILY PO 05/01/17 09:00 05/13/17 08:18 Chlorhexidine Gluconate (Chlorhexidine 2% Cloth) Taper DAILY@04 TOP 05/01/17 04:00 04/27/18 03:59 04/30/17 22:00 Insulin Human Regular (NovoLIN R SUPPLEMENTAL SCALE) 1 Q4HR SQ 04/30/17 20:00 05/12/17 20:20 Metoprolol Tartrate (Lopressor) 50 mg BID PO 05/03/17 09:00 05/13/17 08:19 Labetalol HCl (Trandate Inj) 20 mg Q3HR PRN IV PUSH SBP > 150 05/03/17 08:00 05/03/17 08:22 Hydralazine HCl (Apresoline) 50 mg Q8HR PRN PO SBP > 160 05/03/17 07:15 05/03/17 08:22 Amlodipine Besylate (Norvasc) 10 mg DAILY PO 05/05/17 09:00 05/13/17 08:18 Levetriacetam (Keppra) 1,000 mg Q12HR PO 05/08/17 21:00 05/13/17 08:19 Phenytoin (Dilantin Liq) 150 mg Q8HR PO 05/08/17 14:00 05/13/17 05:05 Acetaminophen (Tylenol Supp) 650 mg Q6H PRN RECTAL fever >101 05/08/17 23:15 05/11/17 07:46 Objective Remarks GENERAL: chronically ill female lying in bed in [facility]. SKIN: Warm and dry. HEAD: Normocephalic. EYES: No injection or drainage. NECK: Supple, trachea midline. CARDIOVASCULAR: Regular rate and rhythm RESPIRATORY: anterior kuo clear. GASTROINTESTINAL: Abdomen soft, non-tender, nondistended. EXTREMITIES: No cyanosis NEUROLOGICAL: non-verbal. tracks with eyes. Assessment/Plan Problem List: (1) Subdural hematoma ICD Codes: I62.00 - Nontraumatic subdural hemorrhage, unspecified Status: Acute Plan: -- Developed subdural hematoma after fall from long-term -- Neurosurgery recommending conservative management -- Palliative following (2) DVT (deep venous thrombosis) ICD Codes: I82.409 - Acute embolism and thrombosis of unspecified deep veins of unspecified lower extremity Plan: 05/13: patient is not a good candidate for anticoagulation d/t recent SDH, high fall risk. Would recommend hospice. However, if patient is not going to hospice and aggressive care is still desired, would recommend placement of an IVC filter. U/S, upper extremities: no DVT U/S, lower extremities: extensive DVT throughout right lower extremity. occlusive thrombus throughout femoral and popliteal veins with nonocclusive thrombus in the trifurcation tributaries and central greater saphenous vein. Assessment 61-year-old female admitted after fall found to have a subdural hematoma. She was admitted with a normal platelet count; hematology consulted when it dropped into the 70s. Attending Statement The exam, history, and the medical decision-making described in the above note were completed with the assistance of the mid-level provider. I reviewed and agree with the findings presented. I attest that I had a [id number] encounter with the patient on the same day, and personally performed and documented my assessment and findings in the medical record. Patient remains nonverbal She has a DVT of the lower leg She's not a good candidate for any anticoagulation due to the Subdural hemorrhage Strongly recommend hospice Consider IVC filter if patient is not Going to hospice Problem Qualifiers (1) DVT (deep venous thrombosis): Qualified Codes: I82.411 - Acute embolism and thrombosis of right femoral vein Kierra Wheeler May 13, 2017 12:43 Eusebia Rainey MD May 13, 2017 21:35
[2017-05-13] MEDS: ACETAMINOPHEN 650 MG SUPP RECTAL PRN (16:28)
--- NOTE | 2017-05-13 16:30 | HHI.PR ---
Addendum to Inpatient Note Addendum Reason: Additional Documentation Additional Information d/w : cause of low grade fevers is extensive DVTs. Continue to observe off antibiotics Will sign off please call back if any change in clinical condition or questions. Mis Beavers MD May 13, 2017 16:30
[2017-05-13 18:02] LABS: BICARBONATE 24.6 MEQ/L (21.0-32.0); POTASSIUM 3.6 MEQ/L (3.5-5.1)
[2017-05-13 18:05] LABS: AUTOMATED NEUTROPHIL # 7.4 TH/MM3 (1.8-7.7); BASOPHIL # 0.1 TH/MM3 (0-0.2); BASOPHIL % 0.7 % (0.0-2.0); EOSINOPHIL # 0.2 TH/MM3 (0-0.4); EOSINOPHIL % 2.2 % (0.0-4.0); HEMATOCRIT 30.4 % (35.0-46.0); HEMO FLAGS DIFF FINAL; LYMPHOCYTE # 1.2 TH/MM3 (1.0-4.8); MEAN CELL VOLUME 94.5 FL (80.0-100.0); MEAN CORPUSCULAR HEMOGLOBIN 31.4 PG (27.0-34.0); MEAN CORPUSCULAR HGB CONC 33.2 % (32.0-36.0); MONO % 15.1 % (0.0-8.0); PLATELET COUNT 258 TH/MM3 (150-450); RED BLOOD COUNT 3.21 MIL/MM3 (4.00-5.30); RED CELL DISTRIBUTION WIDTH 14.6 % (11.6-17.2); WHITE BLOOD COUNT 10.5 TH/MM3 (4.0-11.0)
[2017-05-13 18:33] LABS: APTT (PATIENT) 31.9 SEC (24.3-30.1); INTERNATIONAL NORMALIZED RATIO 1.1 RATIO; PROTHROMBIN TIME - PATIENT 12.7 SEC (9.8-11.6)
[2017-05-14] VITALS: BP 134/63; PULSE 79; RESP 18; TEMP 99.4; O2SAT 99
[2017-05-14 04:00] VITALS: BP 124/65; PULSE 92; RESP 20; TEMP 100; O2SAT 99
[2017-05-14] MEDS: INSULIN NovoLIN REGULAR SUPPLEMENTAL SCALE SQ SCH ×6 (04:00→20:00)
[2017-05-14] MEDS: CHLORHEXIDINE GLUCONATE 2 % 1 PACK (2 CLOTHS) TOP SCH (04:00)
[2017-05-14] MEDS: PHENYTOIN SUSP 100 MG/4 ML CUP PO SCH ×3 (05:41→22:07)
[2017-05-14 08:24] VITALS: BP 138/62; PULSE 90; RESP 19; TEMP 99.8; O2SAT 100
[2017-05-14] MEDS: TOPIRAMATE 100 MG TAB PO SCH ×2 (08:42→22:07)
[2017-05-14] MEDS: LACOSAMIDE 100 MG TAB PO SCH ×2 (08:43→22:09)
[2017-05-14] MEDS: METOPROLOL TARTRATE 50 MG TAB PO SCH ×2 (08:43→22:09)
[2017-05-14] MEDS: levETIRAcetam 500 MG TAB PO SCH ×2 (08:43→22:09)
[2017-05-14] MEDS: FOLIC ACID 1 MG TAB PO SCH (08:43)
[2017-05-14] MEDS: DIVALPROEX SODIUM DELAYED RELEASE 250 MG TAB PO SCH ×2 (08:43→22:09)
[2017-05-14] MEDS: DOCUSATE SODIUM 100 MG CAP PO SCH (08:44)
[2017-05-14] MEDS: CITALOPRAM HYDROBROMIDE 40 MG TAB PO SCH (08:44)
[2017-05-14] MEDS: TIOTROPIUM BROMIDE 18 MCG INH INH SCH (08:44)
[2017-05-14] MEDS: MEMANTINE HCL 10 MG TAB PO SCH ×2 (08:44→22:08)
[2017-05-14] MEDS: PANTOPRAZOLE SOD 40 MG DELAYED RELEASE TAB PO SCH (08:44)
[2017-05-14] MEDS: BUDESONIDE-FORMOTEROL 160/4.5 MCG INHALER INH SCH ×2 (08:44→22:10)
[2017-05-14] MEDS: ALBUTEROL SULFATE 90 MCG/ACT HFA 8 GM INHALER INH SCH ×4 (08:45→22:10)
--- NOTE | 2017-05-14 11:37 | HHI.PR ---
Subjective Remarks patien tin bed being fd by the nurse. Appears in nad. No events overnight. VS appears stable. Objective Vitals Vital Signs Date Time Temp Pulse Resp B/P (MAP) Pulse Ox O2 Delivery O2 Flow Rate FiO2 05/14/17 08:24 99.8 90 19 138/62 (87) 100 05/14/17 04:00 100.0 92 20 124/65 (84) 99 05/14/17 00:00 99.4 79 18 134/63 (86) 99 05/13/17 20:00 98.8 88 18 130/63 (85) 99 05/13/17 16:22 101.2 93 22 121/76 (91) 97 05/13/17 12:24 99.1 87 18 135/72 (93) 97 I/O 05/13/17 05/13/17 05/13/17 05/14/17 05/14/17 05/14/17 07:00 15:00 23:00 07:00 15:00 23:00 Intake Total 120 ml 60 ml Output Total 100 ml 800 ml 700 ml 1350 ml Balance -100 ml -680 ml -700 ml -1290 ml Intake Oral 120 ml 60 ml Output Urine Total 100 ml 800 ml 700 ml 1350 ml # Bowel Movements 0 Result Diagram: 05/13/17 17005/13/171706 Imaging Last Impressions Upper Extremity Ultrasound 05/11/17 0000 Signed Impressions: Service Date/Time: Thursday, May 11, 2017 17:20 - CONCLUSION: 1. No deep venous thrombosis in either lower extremity. 2. However, superficial thrombosis is seen in both cephalic veins. This is nonocclusive on the right with occlusive and nonocclusive segments on the left. Marty Clements MD Lower Extremity Ultrasound 05/11/17 0000 Signed Impressions: Service Date/Time: Thursday, May 11, 2017 17:06 - CONCLUSION: 1. Extensive DVT throughout the right lower extremity. Occlusive thrombus throughout the femoral and popliteal veins with nonocclusive thrombus in the trifurcation tributaries and central greater saphenous vein. 2. 3.4 cm popliteal cyst in the right knee. 3. No DVT on the left. Marty Clements MD Chest X-Ray 05/09/17 0000 Signed Impressions: Service Date/Time: May 10:38 - CONCLUSION: No pneumonia or other acute cardiopulmonary disease demonstrated. Ernesto Parham MD Head CT 05/05/17 0000 Signed Impressions: Service Date/Time: Friday, May 05, 2017 10:32 - CONCLUSION: The amount of extra-axial hemorrhage seen previously has clearly decreased on today's exam. The areas of intraparenchymal hemorrhage are stable with better defined surrounding edema. Ventricles remain dilated unchanged. Mayito Bess MD Pelvis X-Ray 04/30/17 1525 Signed Impressions: Service Date/Time: Sunday, April 30, 2017 15:51 - CONCLUSION: The bony pelvic ring is grossly intact. David Bhandari MD Cervical Spine CT 04/30/17 1525 Signed Impressions: Service Date/Time: Sunday, April 30, 2017 17:11 - CONCLUSION: No acute findings. Stable degenerative changes. David Bhandari MD Objective Remarks GENERAL: Pt encountered laying a bed, sleeping. NAD. SKIN: Warm and dry. Bruising noted at on back of hands, and under right eye. HEAD: Normocephalic. EYES: Non icteric, inflamed, or with drainage. As pt did not respond to command to open her eyes, they were gently opened. Pt was noted to be looking straight ahead. NECK: Supple, trachea midline. No lymphadenopathy. CARDIOVASCULAR: Regular rate and rhythm without murmurs, gallops, or rubs. RESPIRATORY: Breath sounds equal bilaterally. No accessory muscle use. GASTROINTESTINAL: Abdomen soft, non-tender, nondistended. Bowel sounds present, softly heard. all quadrants. MUSCULOSKELETAL: No cyanosis, or edema. A/P Assessment and Plan 61-year-old female who presented with fall and confusion Fevers: Noted to be 102.0 , improved to 100.0 with Tylenol. Infectious disease consulted. Hypernatremic: Na improving. Check labs in am. Nutrition: Pt requiring others to feed eat. Ate little this am. Added Insure to diet. Acute left subdural hematoma with right occipital intraventricular blood and 7 mm midline shift toward the right. -Being managed by neurosurgeon. -Very poor prognosis. -CT scan was repeated and it was stable. -Mental status dye she has improved with hydration. Fevers -Patient taken off of IV antibiotics yesterday since she completed treatment for her UTI and cultures are negative. She then spiked another fever. -Will need to do fever workup and get chest x-ray, UA, blood cultures. She has no leukocytosis. -Based on results will determine if I will restart antibiotics. Hypernatremic -Most likely patient is not taking in enough fluid intake. -Will need to restart IV fluids. Monitor sodium levels. Acute renal failure -Most likely secondary to dehydration. -Resolved with IV fluids and boluses. -Patient is now eating well. -Encourage oral intake. Hypertension -Controlled. Continue amlodipine. - Continue with when necessary medication Vasotec 1.25 mg IV q. 6-hour p.r.n. for systolic blood pressure greater than 150 or diastolic blood pressure greater than 90. History of seizure disorder. -Monitor neuro status closely and avoid any sedatives. Continue with antiseizure meds. The patient is on Vimpat 200 mg b.i.d. Keppra, Depakote, Topamax and Dilantin 200 mg IV q.8h. Dilantin and Depakote level checked on 05/05 within range. Urinary tract infection. -urine cultures grew with Providencia stuartii. Blood cultures were negative so Rocephin was discontinued yesterday. Thrombocytopenia -Improving. -[employer] Certified [employer] Professional following. Hit panel mildly weakened. -No signs of active bleeding. -Since thrombocytopenia is improving data analysis intern signed off. DVT: patient with h.o intracranial bleed. Will consult hem/onc for further recommendation regarding anticoagulation. History of schizophrenia. -Continue home medication. 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 Discharge Planning Very poor prognosis. Pending brother to sign forms for hospice but difficulty reaching her brother since he is homeless. Palliative care is following. Hospice care has signed off at this time as they are unable to get the brother to sign documentation and said pt will need to return to SNF. Continuing to determine origin of fever. Suspect she will not be able to return to SNF until she is afebrile. Esperanza Arias MD May 14, 2017 11:37
[2017-05-14 11:51] VITALS: BP 131/67; PULSE 85; RESP 19; TEMP 99; O2SAT 98
--- NOTE | 2017-05-14 13:24 | PD.ONC.PN ---
Subjective Subjective Remarks Tmax 100F overnight. Patient non-verbal. No family at bedside. NO reported overnight events. Objective Data Date Time Temp Pulse Resp B/P (MAP) Pulse Ox O2 Delivery O2 Flow Rate FiO2 05/14/17 11:51 99.0 85 19 131/67 (88) 98 05/14/17 08:24 99.8 90 19 138/62 (87) 100 05/14/17 04:00 100.0 92 20 124/65 (84) 99 05/14/17 00:00 99.4 79 18 134/63 (86) 99 05/13/17 20:00 98.8 88 18 130/63 (85) 99 05/13/17 16:22 101.2 93 22 121/76 (91) 97 05/14/17 05/14/17 05/14/17 07:00 15:00 23:00 Intake Total 90 ml Output Total 700 ml 1350 ml Balance -700 ml -1260 ml Result Diagram: 05/13/17 1707 05/13/17 170 Laboratory Results Laboratory Tests Test 05/13/17 17:07 White Blood Count 10.5 TH/MM3 Red Blood Count 3.21 MIL/MM3 Hemoglobin 10.1 GM/DL Hematocrit 30.4 % Mean Corpuscular Volume 94.5 FL Mean Corpuscular Hemoglobin 31.4 PG Mean Corpuscular Hemoglobin Concent 33.2 % Red Cell Distribution Width 14.6 % Platelet Count 258 TH/MM3 Mean Platelet Volume 8.4 FL Neutrophils (%) (Auto) 71.0 % Lymphocytes (%) (Auto) 11.0 % Monocytes (%) (Auto) 15.1 % Eosinophils (%) (Auto) 2.2 % Basophils (%) (Auto) 0.7 % Neutrophils # (Auto) 7.4 TH/MM3 Lymphocytes # (Auto) 1.2 TH/MM3 Monocytes # (Auto) 1.6 TH/MM3 Eosinophils # (Auto) 0.2 TH/MM3 Basophils # (Auto) 0.1 TH/MM3 CBC Comment DIFF FINAL Differential Comment Prothrombin Time 12.7 SEC Prothromb Time International Ratio 1.1 RATIO Activated Partial Thromboplast Time 31.9 SEC Fibrinogen 674 mg/dL Blood Urea Nitrogen 12 MG/DL Creatinine 0.44 MG/DL Random Glucose 104 MG/DL Calcium Level 7.8 MG/DL Sodium Level 143 MEQ/L Potassium Level 3.6 MEQ/L Chloride Level 111 MEQ/L Carbon Dioxide Level 24.6 MEQ/L Anion Gap 7 MEQ/L Estimat Glomerular Filtration Rate 144 ML/MIN Administered Medications Medications (Trade) Dose Ordered Sig/Elizabet Route PRN Reason Start Time Stop Time Status Last Admin Dose Admin Albuterol Sulfate (Proair Hfa Inh) 2 puff QID INH 04/30/17 21:00 05/14/17 08:45 Budesonide/ Formoterol Fumarate (Symbicort 160-4.5 Inh) 2 puff BID INH 04/30/17 21:00 05/14/17 08:44 Citalopram Hydrobromide (CeleXA) 40 mg DAILY PO 05/01/17 09:00 05/14/17 08:44 Divalproex Sodium (Depakote Dr) 750 mg Q12HR PO 04/30/17 21:00 05/14/17 08:43 Docusate Sodium (Colace) 100 mg DAILY PO 05/01/17 09:00 05/14/17 08:44 Folic Acid (Folate) 1 mg DAILY PO 05/01/17 09:00 05/14/17 08:43 Lacosamide (Vimpat) 200 mg BID PO 04/30/17 21:00 05/14/17 08:43 Memantine (Namenda) 10 mg BID PO 04/30/17 21:00 05/14/17 08:44 Tiotropium [place] (Spiriva Inh) 18 mcg DAILY INH 05/01/17 09:00 05/14/17 08:44 Topiramate (Topamax) 100 mg BID PO 04/30/17 21:00 05/14/17 08:42 Enalaprilat (Vasotec Inj) 1.25 mg Q6H PRN IV PUSH SBP>150, DBP>90 04/30/17 18:30 05/10/17 05:00 Pantoprazole Sodium (Protonix) 40 mg DAILY PO 05/01/17 09:00 05/14/17 08:44 Chlorhexidine Gluconate (Chlorhexidine 2% Cloth) Taper DAILY@04 TOP 05/01/17 04:00 04/27/18 03:59 04/30/17 22:00 Insulin Human Regular (NovoLIN R SUPPLEMENTAL SCALE) 1 Q4HR SQ 04/30/17 20:00 05/12/17 20:20 Metoprolol Tartrate (Lopressor) 50 mg BID PO 05/03/17 09:00 05/14/17 08:43 Labetalol HCl (Trandate Inj) 20 mg Q3HR PRN IV PUSH SBP > 150 05/03/17 08:00 05/03/17 08:22 Hydralazine HCl (Apresoline) 50 mg Q8HR PRN PO SBP > 160 05/03/17 07:15 05/03/17 08:22 Amlodipine Besylate (Norvasc) 10 mg DAILY PO 05/05/17 09:00 05/14/17 08:43 Levetriacetam (Keppra) 1,000 mg Q12HR PO 05/08/17 21:00 05/14/17 08:43 Phenytoin (Dilantin Liq) 150 mg Q8HR PO 05/08/17 14:00 05/14/17 05:41 Acetaminophen (Tylenol Supp) 650 mg Q6H PRN RECTAL fever >101 05/08/17 23:15 05/13/17 16:28 Objective Remarks GENERAL: chronically ill female supine in bed resting. SKIN: Warm and dry. HEAD: Normocephalic. EYES: No injection or drainage. NECK: Supple, trachea midline. CARDIOVASCULAR: +S1/S2 RESPIRATORY: anterior kuo clear. GASTROINTESTINAL: Abdomen soft, non-tender, nondistended. EXTREMITIES: No cyanosis NEUROLOGICAL: non-verbal. Assessment/Plan Problem List: (1) DVT (deep venous thrombosis) ICD Codes: I82.409 - Acute embolism and thrombosis of unspecified deep veins of unspecified lower extremity Plan: 05/14: recommend hospice. If aggressive care is desired, would recommend IVC filter placement. U/S, upper extremities: no DVT U/S, lower extremities: extensive DVT throughout right lower extremity. occlusive thrombus throughout femoral and popliteal veins with nonocclusive thrombus in the trifurcation tributaries and central greater saphenous vein. (2) Subdural hematoma ICD Codes: I62.00 - Nontraumatic subdural hemorrhage, unspecified Status: Acute Plan: -- Developed subdural hematoma after fall from half-way -- Neurosurgery recommending conservative management -- Palliative following Assessment 61-year-old female admitted after fall found to have a subdural hematoma. She was admitted with a normal platelet count; hematology consulted when it dropped into the 70s. Attending Statement The exam, history, and the medical decision-making described in the above note were completed with the assistance of the mid-level provider. I reviewed and agree with the findings presented. I attest that I had a [id number] encounter with the patient on the same day, and personally performed and documented my assessment and findings in the medical record. Patient Remains nonverbal , Does not follow commands Recommend hospice IVC filter if Aggressive Care is required Problem Qualifiers (1) DVT (deep venous thrombosis): Qualified Codes: I82.411 - Acute embolism and thrombosis of right femoral vein Kierra Wheeler May 14, 2017 13:24 Eusebia Rainey MD May 14, 2017 21:40
[2017-05-14 15:54] VITALS: BP 139/64; PULSE 86; RESP 19; TEMP 99.6; O2SAT 96
[2017-05-14 20:40] VITALS: BP 120/79; PULSE 87; RESP 18; TEMP 97.8; O2SAT 99
[2017-05-15] VITALS (7 sets, daily range): BP systolic 118–166; BP diastolic 56–80; PULSE 77–93; RESP 16–20; TEMP 98.1–101; O2SAT 96–100
[2017-05-15] MEDS: CHLORHEXIDINE GLUCONATE 2 % 1 PACK (2 CLOTHS) TOP SCH (00:37)
[2017-05-15] MEDS: INSULIN NovoLIN REGULAR SUPPLEMENTAL SCALE SQ SCH ×6 (04:00→20:00)
[2017-05-15] MEDS: PHENYTOIN SUSP 100 MG/4 ML CUP PO SCH ×3 (05:31→23:05)
[2017-05-15] MEDS: TIOTROPIUM BROMIDE 18 MCG INH INH SCH (09:12)
[2017-05-15] MEDS: BUDESONIDE-FORMOTEROL 160/4.5 MCG INHALER INH SCH ×2 (09:14→21:00)
[2017-05-15] MEDS: ALBUTEROL SULFATE 90 MCG/ACT HFA 8 GM INHALER INH SCH ×4 (09:15→21:00)
[2017-05-15] MEDS: DOCUSATE SODIUM 100 MG CAP PO SCH (09:17)
[2017-05-15] MEDS: PANTOPRAZOLE SOD 40 MG DELAYED RELEASE TAB PO SCH (09:18)
[2017-05-15] MEDS: TOPIRAMATE 100 MG TAB PO SCH ×2 (09:18→23:06)
[2017-05-15] MEDS: DIVALPROEX SODIUM DELAYED RELEASE 250 MG TAB PO SCH ×2 (09:19→23:06)
[2017-05-15] MEDS: levETIRAcetam 500 MG TAB PO SCH ×2 (09:19→23:06)
[2017-05-15] MEDS: MEMANTINE HCL 10 MG TAB PO SCH ×2 (09:20→23:06)
[2017-05-15] MEDS: FOLIC ACID 1 MG TAB PO SCH (09:20)
[2017-05-15] MEDS: LACOSAMIDE 100 MG TAB PO SCH ×2 (09:21→23:06)
[2017-05-15] MEDS: CITALOPRAM HYDROBROMIDE 40 MG TAB PO SCH (09:21)
[2017-05-15] MEDS: METOPROLOL TARTRATE 50 MG TAB PO SCH ×2 (09:22→23:06)
--- NOTE | 2017-05-15 13:59 | HHI.PR ---
Addendum to Inpatient Note Addendum Reason: Additional Documentation Additional Information Spoke with patient's half brother Julio Arreguin. He states that he wants everything done for the patient until such time that there is nothing to be done , then he will decide to place her in hospice. He agrees for IVC filter placement. He can be reached through his phone for consent. Dr. Arias is aware. IR for IVC placement. Nursing was also notified. Manuela Castillo May 15, 2017 13:59
[2017-05-15] MEDS: BISACODYL 10 MG SUPP RECTAL PRN (16:03)
--- NOTE | 2017-05-15 16:26 | HHI.PR ---
Subjective Remarks Seen earlier today. She is more awake and alert. Eationg more m=per nurse. no fever or chills. No n/v/d/c. VS stable. Objective Vitals Vital Signs Date Time Temp Pulse Resp B/P (MAP) Pulse Ox O2 Delivery O2 Flow Rate FiO2 05/15/17 11:57 98.6 77 16 140/63 (88) 100 05/15/17 08:50 99.2 87 16 124/60 (81) 96 05/15/17 05:00 99.3 88 20 129/58 (81) 100 05/15/17 00:20 98.1 86 19 118/80 (93) 98 05/14/17 20:40 97.8 87 18 120/79 (93) 99 I/O 05/14/17 05/14/17 05/14/17 05/15/17 05/15/17 05/15/17 07:00 15:00 23:00 07:00 15:00 23:00 Intake Total 90 ml 100 ml 200 ml Output Total 700 ml 1350 ml Balance -700 ml -1260 ml 100 ml 200 ml Intake Oral 90 ml 100 ml 200 ml Output Urine Total 700 ml 1350 ml # Voids 2 3 2 # Bowel Movements 0 0 Result Diagram: 05/13/17170605/13/171706 Imaging Last Impressions Upper Extremity Ultrasound 05/11/17 0000 Signed Impressions: Service Date/Time: Thursday, May 11, 2017 17:20 - CONCLUSION: 1. No deep venous thrombosis in either lower extremity. 2. However, superficial thrombosis is seen in both cephalic veins. This is nonocclusive on the right with occlusive and nonocclusive segments on the left. Marty Clements MD Lower Extremity Ultrasound 05/11/17 0000 Signed Impressions: Service Date/Time: Thursday, May 11, 2017 17:06 - CONCLUSION: 1. Extensive DVT throughout the right lower extremity. Occlusive thrombus throughout the femoral and popliteal veins with nonocclusive thrombus in the trifurcation tributaries and central greater saphenous vein. 2. 3.4 cm popliteal cyst in the right knee. 3. No DVT on the left. Marty Clements MD Chest X-Ray 05/09/17 0000 Signed Impressions: Service Date/Time: May 10:38 - CONCLUSION: No pneumonia or other acute cardiopulmonary disease demonstrated. Ernesto Parham MD Head CT 05/05/17 0000 Signed Impressions: Service Date/Time: Friday, May 05, 2017 10:32 - CONCLUSION: The amount of extra-axial hemorrhage seen previously has clearly decreased on today's exam. The areas of intraparenchymal hemorrhage are stable with better defined surrounding edema. Ventricles remain dilated unchanged. Mayito Bess MD Pelvis X-Ray 04/30/17 1525 Signed Impressions: Service Date/Time: Sunday, April 30, 2017 15:51 - CONCLUSION: The bony pelvic ring is grossly intact. David Bhandari MD Cervical Spine CT 04/30/17 1525 Signed Impressions: Service Date/Time: Sunday, April 30, 2017 17:11 - CONCLUSION: No acute findings. Stable degenerative changes. David Bhandari MD Objective Remarks GENERAL: Pt encountered laying a bed, sleeping. NAD. SKIN: Warm and dry. Bruising noted at on back of hands, and under right eye. HEAD: Normocephalic. EYES: Non icteric, inflamed, or with drainage. As pt did not respond to command to open her eyes, they were gently opened. Pt was noted to be looking straight ahead. NECK: Supple, trachea midline. No lymphadenopathy. CARDIOVASCULAR: Regular rate and rhythm without murmurs, gallops, or rubs. RESPIRATORY: Breath sounds equal bilaterally. No accessory muscle use. GASTROINTESTINAL: Abdomen soft, non-tender, nondistended. Bowel sounds present, softly heard. all quadrants. MUSCULOSKELETAL: No cyanosis, or edema. A/P Assessment and Plan 61-year-old female who presented with fall and confusion DVT: patient with h.o intracranial bleed. Will consult hem/onc for further recommendation regarding anticoagulation. Hem/onc recommends IVC filter as she is a poor candidate for anticoagulation. . Brother POA agrees for IVC filter placement. Plan to DC to SNF after IVC filter placed. Consult IR for IVC filter placement. Fevers: Noted to be 102.0 , improved to 100.0 with Tylenol. Infectious disease consulted, fevers are noninfectious discussed with Dr Beavers ID specialist no need of abx. Hypernatremic: Na improving. Check labs in am. Nutrition: Pt requiring others to feed eat. Added Ensure to diet. Acute left subdural hematoma with right occipital intraventricular blood and 7 mm midline shift toward the right. -Being managed by neurosurgeon. -Very poor prognosis. -CT scan was repeated and it was stable. -Mental status dye she has improved with hydration. Fevers as above -Patient taken off of IV antibiotics yesterday since she completed treatment for her UTI and cultures are negative. She then spiked another fever. -Will need to do fever workup and get chest x-ray, UA, blood cultures. She has no leukocytosis. -Based on results will determine if I will restart antibiotics. NO abx need per ID. Hypernatremic -Most likely patient is not taking in enough fluid intake. -Will need to restart IV fluids. Monitor sodium levels. Acute renal failure -Most likely secondary to dehydration. -Resolved with IV fluids and boluses. -Patient is now eating well. -Encourage oral intake. Hypertension -Controlled. Continue amlodipine. - Continue with when necessary medication Vasotec 1.25 mg IV q. 6-hour p.r.n. for systolic blood pressure greater than 150 or diastolic blood pressure greater than 90. History of seizure disorder. -Monitor neuro status closely and avoid any sedatives. Continue with antiseizure meds. The patient is on Vimpat 200 mg b.i.d. Keppra, Depakote, Topamax and Dilantin 200 mg IV q.8h. Dilantin and Depakote level checked on 05/05 within range. Urinary tract infection. -urine cultures grew with Providencia stuartii. Blood cultures were negative so Rocephin was discontinued yesterday. Thrombocytopenia -Improving. -Fretted String Instrument Repairer following. Hit panel mildly weakened. -No signs of active bleeding. -Since thrombocytopenia is improving archaeologist signed off. History of schizophrenia. -Continue home medication. 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 Discharge Planning Very poor prognosis. Pending brother to sign forms for hospice but difficulty reaching her brother since he is homeless. Palliative care is following. Hospice care has signed off at this time as they are unable to get the brother to sign documentation and said pt will need to return to SNF. Discussed with Dr Beavers origin of fever is noninfectious. Hem/onc recommends IVC filter as she is a poor candidate for anticoagulation. . Brother POA agrees for IVC filter placement. Plan to DC to SNF after IVC filter placed. Consult IR for IVC filter placement. Esperanza Arias MD May 15, 2017 16:26
--- NOTE | 2017-05-15 16:27 | HHI.DS ---
Discharge Summary Admission Date Apr 30, 2017 at 17:51 Discharge Date: May 16, 2017 Admitting Diagnosis subarachnoid hemorrhage. Subdural hemorrhage. (1) GERD (gastroesophageal reflux disease) ICD Code: K21.9 - GERD (gastroesophageal reflux disease) Status: Acute (2) CAD (coronary artery disease) ICD Code: I25.10 - CAD (coronary artery disease) Status: Chronic (3) Carotid stenosis, right ICD Code: I65.21 - Carotid stenosis, right Status: Chronic (4) H/O: CVA (cerebrovascular accident) ICD Code: Z86.73 - Personal history of transient ischemic attack (TIA), and cerebral infarction without residual deficits Status: Acute (5) Status epilepticus ICD Code: G40.901 - Epilepsy, unspecified, not intractable, with status epilepticus Status: Resolved (6) Acute hypoxemic respiratory failure ICD Code: J96.01 - Acute respiratory failure with hypoxia Status: Resolved (7) Subarachnoid hemorrhage ICD Code: I60.9 - Nontraumatic subarachnoid hemorrhage, unspecified Status: Acute (8) Subdural hematoma ICD Code: I62.00 - Nontraumatic subdural hemorrhage, unspecified Status: Acute (9) Schizophrenia ICD Code: F20.9 - Schizophrenia, unspecified Status: Acute Procedures IVC filter placed on 05/16/17 by IR. Brief History - From Admission The patient is 61-year-old female with past medical history of seizure disorder, schizophrenia, hypertension who presented to [facility] ED from a local nursing facility with complaints of headache and status post fall. Per ED records the patient was not feeling well and got up and walked to the bathroom and fell. assisted staff reported loss of consciousness for unknown amount of time. When she woke up she had repetitive speech and EMS was called. The patient was brought into the ED for further evaluation and on arrival she was awake, however, she was not voicing or answering any questions. The patient is aphasic. In the ED she had a blood pressure 134/71. CT scan of the brain showed large right scalp hematoma, left subdural hematoma, multifocal left parietal parenchymal hemorrhages, right occipital intraventricular blood and 7 mm midline shift toward the right. Cervical spine CT was obtained and showed no evidence of any acute findings. In the ED she was given Ativan 1 mg IM x1. The patient was seen by Dr. Sahu from neurosurgery and planned to repeat CT brain in a.m. When seen the patient was on room air oxygen. Most of the history was obtained from reviewing medical records. CBC/BMP: 05/13/17 1707 05/13/17 1707 Significant Findings Laboratory Tests Test 05/13/17 17:07 Red Blood Count 3.21 MIL/MM3 (4.00-5.30) Hemoglobin 10.1 GM/DL (11.6-15.3) Hematocrit 30.4 % (35.0-46.0) Neutrophils (%) (Auto) 71.0 % (16.0-70.0) Monocytes (%) (Auto) 15.1 % (0.0-8.0) Monocytes # (Auto) 1.6 TH/MM3 (0-0.9) Prothrombin Time 12.7 SEC (9.8-11.6) Activated Partial Thromboplast Time 31.9 SEC (24.3-30.1) Fibrinogen 674 mg/dL (227-377) Creatinine 0.44 MG/DL (0.50-1.00) Calcium Level 7.8 MG/DL (8.5-10.1) Chloride Level 111 MEQ/L (98-107) Imaging Last Impressions Upper Extremity Ultrasound 05/11/17 0000 Signed Impressions: Service Date/Time: Thursday, May 11, 2017 17:20 - CONCLUSION: 1. No deep venous thrombosis in either lower extremity. 2. However, superficial thrombosis is seen in both cephalic veins. This is nonocclusive on the right with occlusive and nonocclusive segments on the left. Marty Clements MD Lower Extremity Ultrasound 05/11/17 0000 Signed Impressions: Service Date/Time: Thursday, May 11, 2017 17:06 - CONCLUSION: 1. Extensive DVT throughout the right lower extremity. Occlusive thrombus throughout the femoral and popliteal veins with nonocclusive thrombus in the trifurcation tributaries and central greater saphenous vein. 2. 3.4 cm popliteal cyst in the right knee. 3. No DVT on the left. Marty Clements MD Chest X-Ray 05/09/17 0000 Signed Impressions: Service Date/Time: May 10:38 - CONCLUSION: No pneumonia or other acute cardiopulmonary disease demonstrated. Ernesto Parham MD Head CT 05/05/17 0000 Signed Impressions: Service Date/Time: Friday, May 05, 2017 10:32 - CONCLUSION: The amount of extra-axial hemorrhage seen previously has clearly decreased on today's exam. The areas of intraparenchymal hemorrhage are stable with better defined surrounding edema. Ventricles remain dilated unchanged. Mayito Bess MD Pelvis X-Ray 04/30/17 1525 Signed Impressions: Service Date/Time: Sunday, April 30, 2017 15:51 - CONCLUSION: The bony pelvic ring is grossly intact. David Bhandari MD Cervical Spine CT 04/30/17 1525 Signed Impressions: Service Date/Time: Sunday, April 30, 2017 17:11 - CONCLUSION: No acute findings. Stable degenerative changes. David Bhandari MD PE at Discharge GENERAL: Pt encountered laying a bed, sleeping. NAD. SKIN: Warm and dry. Bruising noted at on back of hands, and under right eye. HEAD: Normocephalic. EYES: Non icteric, inflamed, or with drainage. As pt did not respond to command to open her eyes, they were gently opened. Pt was noted to be looking straight ahead. NECK: Supple, trachea midline. No lymphadenopathy. CARDIOVASCULAR: Regular rate and rhythm without murmurs, gallops, or rubs. RESPIRATORY: Breath sounds equal bilaterally. No accessory muscle use. GASTROINTESTINAL: Abdomen soft, non-tender, nondistended. Bowel sounds present, softly heard. all quadrants. MUSCULOSKELETAL: No cyanosis, or edema. Hospital Course 61-year-old female who presented with fall and confusion DVT: patient with h.o intracranial bleed. Will consult hem/onc for further recommendation regarding anticoagulation. Hem/onc recommends IVC filter as she is a poor candidate for anticoagulation. . Brother JUAN agrees for IVC filter placement. IVC filter placed on 05/16/17 by IR. Fevers: Noted to be 102.0 , improved to 100.0 with Tylenol. Infectious disease consulted, fevers are noninfectious discussed with Dr Beavers ID specialist no need of abx. Hypernatremic: Na improving. Check labs in am. Nutrition: Pt requiring others to feed eat. Added Ensure to diet. Acute left subdural hematoma with right occipital intraventricular blood and 7 mm midline shift toward the right. -Being managed by neurosurgeon. -Very poor prognosis. -CT scan was repeated and it was stable. -Mental status dye she has improved with hydration. Fevers as above -Patient taken off of IV antibiotics yesterday since she completed treatment for her UTI and cultures are negative. She then spiked another fever. -Will need to do fever workup and get chest x-ray, UA, blood cultures. She has no leukocytosis. -Based on results will determine if I will restart antibiotics. NO abx need per ID. Hypernatremic -Most likely patient is not taking in enough fluid intake. -Will need to restart IV fluids. Monitor sodium levels. Acute renal failure -Most likely secondary to dehydration. -Resolved with IV fluids and boluses. -Patient is now eating well. -Encourage oral intake. Hypertension -Controlled. Continue amlodipine. - Continue with when necessary medication Vasotec 1.25 mg IV q. 6-hour p.r.n. for systolic blood pressure greater than 150 or diastolic blood pressure greater than 90. History of seizure disorder. -Monitor neuro status closely and avoid any sedatives. Continue with antiseizure meds. The patient is on Vimpat 200 mg b.i.d. Keppra, Depakote, Topamax and Dilantin 200 mg IV q.8h. Dilantin and Depakote level checked on 05/05 within range. Urinary tract infection. -urine cultures grew with Providencia stuartii. Blood cultures were negative so Rocephin was discontinued yesterday. Thrombocytopenia -Improving. -Animal Killer following. Hit panel mildly weakened. -No signs of active bleeding. -Since thrombocytopenia is improving psychiatry adult physician signed off. History of schizophrenia. -Continue home medication. DVT prophylaxis -Chemical anticoagulation prophylaxis contraindicated in the setting of CIO bleed. Discharge Planning Very poor prognosis. Brother wants aggressive treatment however. Palliative care was also consulted, family refusing hospice at this time. Pending brother to sign forms for hospice but difficulty reaching her brother since he is homeless. Palliative care is following. Hospice care has signed off at this time as they are unable to get the brother to sign documentation and said pt will need to return to SNF. Discussed with Dr Beavers origin of fever is noninfectious. Hem/onc recommends IVC filter as she is a poor candidate for anticoagulation. . Brother JUAN agrees for IVC filter placement. IVC filter placed on 05/16/17 by IR. Discharged to SNF in fairly stable condition however anticipate deterioration and readmission. To follow up as OP with PCP and consultants. Pt Condition on Discharge: Stable Discharge Disposition: Discharge to SNF Discharge Time: > 30 minutes Discharge Instructions DIET: Follow Instructions for: Heart Healthy Diet Speech Therapy-Diet Recommends: Pureed Activities you can perform: Regular-No Restrictions Follow up Referrals: Neurology - 1 Week with Josue Sahu MD Oncology - 2 Weeks with Eusebia Rainey MD PCP Follow-up - 2-3 Days New Medications: Amlodipine (Norvasc) 10 Mg Tab 10 MG PO DAILY for Blood Pressure Management, #30 TAB Hydralazine HCl (Hydralazine HCl) 25 Mg Tablet 50 MG PO Q8HR PRN for SBP > 160, #90 MG Changed Medications: Metoprolol Tartrate (Metoprolol Tartrate) 25 Mg Tab 50 MG PO BID for HTN, #60 TAB 0 Refills (Changed from: 25 MG) Continued Medications: Albuterol 18 GM Inh (Ventolin Hfa 18 GM Inh) 90 Mcg/Act Aer 2 PUFF INH QID for SHORTNESS OF BREATH, #1 INHALER 0 Refills Atorvastatin (Atorvastatin) 80 Mg Tab 80 MG PO HS for Cholesterol Management, #30 TAB 0 Refills Budesonide-Formoterol Inh (Symbicort Inh) 160-4.5 Mcg/Act Aero 2 PUFF INH BID, #1 INHALER 0 Refills Citalopram (Citalopram) 40 Mg Tab 40 MG PO DAILY for Control Depression, #30 TAB [address] (Depakote DR) 250 Mg Tabdr 750 MG PO Q12HR for Control Seizures, #60 TAB 0 Refills Docusate Sodium (Colace) 100 Mg Capsule 100 MG PO DAILY Folic Acid (Folic Acid) 0.4 Mg Tab 800 MCG PO DAILY for Nutritional Supplement, TAB 0 Refills Lacosamide (Vimpat) 100 Mg Tab 200 MG PO BID for Seizures, #60 TAB (This prescription has been renewed) Levetiracetam (Levetiracetam) 1,000 Mg Tab 1000 MG PO TID for Control Seizures, #90 TAB 0 Refills Memantine (Namenda) 10 Mg Tab 10 MG PO BID for Alzheimer Disease, #30 TAB 0 Refills Phenytoin Extended (Dilantin) 100 Mg Cap 300 MG PO Q12HR for Control Seizures, #90 CAP 0 Refills Tiotropium Inh (Spiriva Handihaler) 18 Mcg Cap 18 MCG INH DAILY for COPD, #30 CAP 0 Refills DO NOT SWALLOW CAPS Topiramate (Topamax) 100 Mg Tab 100 MG PO BID for Seizure Control, #60 TAB Discontinued Medications: Aspirin DR (Aspirin EC) 81 Mg Tabdr 81 MG PO DAILY, TAB 0 Refills Esperanza Arias MD May 15, 2017 16:27
[2017-05-15] MEDS ORDERED: METO25TA3 PO (16:30)
[2017-05-15] MEDS ORDERED: AMLO10 PO (16:30)
[2017-05-15] MEDS ORDERED: HYDR-3799 PO (16:30)
[2017-05-15] MEDS ORDERED: LACO100 PO (16:32)
[2017-05-15] MEDS ORDERED: LACTATED RINGER'S 1000 ML IV PRN (17:45)
[2017-05-15] MEDS ORDERED: SODIUM CHLORID 0.9% 500 ML IV PRN (17:45)
[2017-05-15] MEDS ORDERED: CHLORHEXIDINE GLUCONATE 2 % 1 PACK (2 CLOTHS) TOPICAL PRN (17:45)
[2017-05-15] MEDS ORDERED: POVIDONE IODINE 5% (ANTISEPSIS KIT) 4 APPLICATIONS EACH NARE PRN (17:45)
[2017-05-16 00:11] VITALS: BP 133/81; PULSE 92; RESP 18; TEMP 100.5; O2SAT 99
[2017-05-16] MEDS: CHLORHEXIDINE GLUCONATE 2 % 1 PACK (2 CLOTHS) TOP SCH (04:00)
[2017-05-16] MEDS: INSULIN NovoLIN REGULAR SUPPLEMENTAL SCALE SQ SCH ×5 (04:00→16:00)
[2017-05-16 05:02] VITALS: BP 114/66; PULSE 92; RESP 17; TEMP 100.6; O2SAT 97
[2017-05-16] MEDS: PHENYTOIN SUSP 100 MG/4 ML CUP PO SCH ×2 (05:25→13:30)
[2017-05-16 07:43] VITALS: BP 141/60; PULSE 97; RESP 20; TEMP 99.2; O2SAT 99
[2017-05-16] MEDS: BUDESONIDE-FORMOTEROL 160/4.5 MCG INHALER INH SCH (09:00)
[2017-05-16] MEDS ORDERED: IOHEXOL 350 MG/ML 50 ML BTL (for RAD DIAG) OTHER ONE (09:51)
--- NOTE | 2017-05-16 10:00 | PD.RAD ---
Post Procedure Progress Note Pre Procedure Diagnosis: (1) DVT (deep venous thrombosis) (2) Subarachnoid hemorrhage (3) Subdural hematoma Post Procedure Diagnosis: (1) Subarachnoid hemorrhage (2) Subdural hematoma (3) DVT (deep venous thrombosis) Procedure Date: May 16, 2017 Supervising Radiologist: Marty Clements Proceduralist/Assist: Jennie Hampton, RT(R)(CV), Kamron Bourne, RT(R) Anesthesia: Local Plan of Activity See PACS Report for procedural detail/treatment Marty Clements MD May 16, 2017 10:00
[2017-05-16] MEDS: TIOTROPIUM BROMIDE 18 MCG INH INH SCH (10:08)
--- NOTE | 2017-05-16 10:08 | RADRPT ---
EXAM DATE/TIME: 05/16/2017 08:29 [place] COMPARISON: No previous studies available for comparison. INDICATIONS : Patient with headache S/P fall. MEDICAL HISTORY : 1. HTN 2. seizure disorder 3. Schizoaffective disorder 4. urinary incontinence 5. anxiety 6. arthritis 7. bi polar disorder SURGICAL HISTORY : 1, tubal ligation 2. oral surgery ENCOUNTER: Initial ACUITY: 2 weeks PAIN SCORE: 2/10 LOCATION: facial FLUORO TIME: 1.1 minutes IMAGE SERIES: 2 ACCESS SITE: Right Internal jugular vein CONTRAST: 1.) 40 cc Omnipaque (iohexol) 350 DEVICE(S): 1.) Inferior vena cava B Mcneill Venatech filter PROCEDURE : 1. Ultrasound-guided venipuncture. 2. Inferior venacavogram. 3. Inferior vena cava filter placement. 4. Conscious sedation with continuous EKG and oximetry monitoring. The risks, benefits and alternatives to the procedure were explained and verbal and written consent w as obtained. The site was prepped in sterile fashion. Full sterile technique was used, including ca p, mask, sterile gloves and gown and a large sterile sheet. Hand hygiene and 2% chlorhexidine and/or betadine/alcohol prep was utilized per protocol for cutaneous antisepsis. Sterile gel and sterile p robe cover were utilized for ultrasound guidance. The skin and subcutaneous tissues were infiltrated with local anesthetic solution. With ultrasound and fluoroscopic guidance the targeted vein was punctured and a vascular sheath was p laced. Inferior venacavogram was performed to demonstrate level of renal veins. No caval thrombus was identified. The prescribed filter was deployed in the infrarenal inferior vena cava. Following deplo yment the filter was identified in good position. Conscious sedation was performed with the prescribed dosages and duration as above in the presence of an independent trained radiology nurse to assist in the monitoring of the patient. EKG and oximetry remained stable throughout the procedure. The patient tolerated the procedure well and there were n o complications. The patient was sent to post anesthesia recovery in stable condition. CONCLUSION: Uncomplicated inferior vena cava filter placement as above. Marty Clements MD on May 16, 2017 at 10:05 Board Certified Radiologist. This report was verified electronically.
[2017-05-16] MEDS: ALBUTEROL SULFATE 90 MCG/ACT HFA 8 GM INHALER INH SCH ×3 (10:09→17:17)
[2017-05-16] MEDS: levETIRAcetam 500 MG TAB PO SCH (10:11)
[2017-05-16] MEDS: DOCUSATE SODIUM 100 MG CAP PO SCH (10:11)
[2017-05-16] MEDS: BISACODYL 10 MG SUPP RECTAL PRN (10:12)
[2017-05-16] MEDS: DIVALPROEX SODIUM DELAYED RELEASE 250 MG TAB PO SCH (10:12)
[2017-05-16] MEDS: TOPIRAMATE 100 MG TAB PO SCH (10:13)
[2017-05-16] MEDS: MEMANTINE HCL 10 MG TAB PO SCH (10:13)
[2017-05-16] MEDS: LACOSAMIDE 100 MG TAB PO SCH (10:14)
[2017-05-16] MEDS: METOPROLOL TARTRATE 50 MG TAB PO SCH (10:15)
[2017-05-16] MEDS: CITALOPRAM HYDROBROMIDE 40 MG TAB PO SCH (10:15)
[2017-05-16] MEDS: PANTOPRAZOLE SOD 40 MG DELAYED RELEASE TAB PO SCH (10:15)
[2017-05-16] MEDS: FOLIC ACID 1 MG TAB PO SCH (10:15)
--- NOTE | 2017-05-16 11:04 | HHI.PR ---
Subjective Remarks S/IVC placement, in bed appears in nad. VS are stable. G=Has constipation, discussed with the nurse will give enema. Objective Vitals Vital Signs Date Time Temp Pulse Resp B/P (MAP) Pulse Ox O2 Delivery O2 Flow Rate FiO2 05/16/17 07:43 99.2 97 20 141/60 (87) 99 05/16/17 05:02 100.6 92 17 114/66 (82) 97 05/16/17 00:11 100.5 92 18 133/81 (98) 99 05/15/17 20:21 101.0 93 18 118/56 (76) 99 05/15/17 17:01 142/61 (88) 05/15/17 16:20 99.2 82 16 166/58 (94) 98 05/15/17 11:57 98.6 77 16 140/63 (88) 100 I/O 05/15/17 05/15/17 05/15/17 05/16/17 05/16/17 05/16/17 07:00 15:00 23:00 07:00 15:00 23:00 Intake Total 200 ml 460 ml 120 ml Balance 200 ml 460 ml 120 ml Intake Oral 200 ml 460 ml 120 ml # Voids 3 2 2 # Bowel Movements 0 Result Diagram: 05/13/17 1707 05/13/17 170 Imaging Last Impressions IVC Filter Placement X-Ray 05/16/17 0000 Signed Impressions: Service Date/Time: May 08:29 - CONCLUSION: Uncomplicated inferior vena cava filter placement as above. Marty Clements MD Upper Extremity Ultrasound 05/11/17 0000 Signed Impressions: Service Date/Time: Thursday, May 11, 2017 17:20 - CONCLUSION: 1. No deep venous thrombosis in either lower extremity. 2. However, superficial thrombosis is seen in both cephalic veins. This is nonocclusive on the right with occlusive and nonocclusive segments on the left. Marty Clements MD Lower Extremity Ultrasound 05/11/17 0000 Signed Impressions: Service Date/Time: Thursday, May 11, 2017 17:06 - CONCLUSION: 1. Extensive DVT throughout the right lower extremity. Occlusive thrombus throughout the femoral and popliteal veins with nonocclusive thrombus in the trifurcation tributaries and central greater saphenous vein. 2. 3.4 cm popliteal cyst in the right knee. 3. No DVT on the left. Marty Clements MD Chest X-Ray 05/09/17 0000 Signed Impressions: Service Date/Time: May 10:38 - CONCLUSION: No pneumonia or other acute cardiopulmonary disease demonstrated. Ernesto Parham MD Head CT 05/05/17 0000 Signed Impressions: Service Date/Time: Friday, May 05, 2017 10:32 - CONCLUSION: The amount of extra-axial hemorrhage seen previously has clearly decreased on today's exam. The areas of intraparenchymal hemorrhage are stable with better defined surrounding edema. Ventricles remain dilated unchanged. Mayito Bess MD Pelvis X-Ray 04/30/17 1525 Signed Impressions: Service Date/Time: Sunday, April 30, 2017 15:51 - CONCLUSION: The bony pelvic ring is grossly intact. David Bhandari MD Cervical Spine CT 04/30/17 1525 Signed Impressions: Service Date/Time: Sunday, April 30, 2017 17:11 - CONCLUSION: No acute findings. Stable degenerative changes. David Bhandari MD Objective Remarks GENERAL: Pt encountered laying a bed, sleeping. NAD. SKIN: Warm and dry. Bruising noted at on back of hands, and under right eye. HEAD: Normocephalic. EYES: Non icteric, inflamed, or with drainage. As pt did not respond to command to open her eyes, they were gently opened. Pt was noted to be looking straight ahead. NECK: Supple, trachea midline. No lymphadenopathy. CARDIOVASCULAR: Regular rate and rhythm without murmurs, gallops, or rubs. RESPIRATORY: Breath sounds equal bilaterally. No accessory muscle use. GASTROINTESTINAL: Abdomen soft, non-tender, nondistended. Bowel sounds present, softly heard. all quadrants. MUSCULOSKELETAL: No cyanosis, or edema. Procedures IVC filter placed on 05/16/17 by IR. A/P Problem List: (1) GERD (gastroesophageal reflux disease) ICD Code: K21.9 - GERD (gastroesophageal reflux disease) Status: Acute (2) CAD (coronary artery disease) ICD Code: I25.10 - CAD (coronary artery disease) Status: Chronic (3) Carotid stenosis, right ICD Code: I65.21 - Carotid stenosis, right Status: Chronic (4) H/O: CVA (cerebrovascular accident) ICD Code: Z86.73 - Personal history of transient ischemic attack (TIA), and cerebral infarction without residual deficits Status: Acute (5) Status epilepticus ICD Code: G40.901 - Epilepsy, unspecified, not intractable, with status epilepticus Status: Resolved (6) Acute hypoxemic respiratory failure ICD Code: J96.01 - Acute respiratory failure with hypoxia Status: Resolved (7) Subarachnoid hemorrhage ICD Code: I60.9 - Nontraumatic subarachnoid hemorrhage, unspecified Status: Acute (8) Subdural hematoma ICD Code: I62.00 - Nontraumatic subdural hemorrhage, unspecified Status: Acute (9) Schizophrenia ICD Code: F20.9 - Schizophrenia, unspecified Status: Acute Assessment and Plan 61-year-old female who presented with fall and confusion DVT: patient with h.o intracranial bleed. Will consult hem/onc for further recommendation regarding anticoagulation. Hem/onc recommends IVC filter as she is a poor candidate for anticoagulation. . Brother JUAN agrees for IVC filter placement. IVC filter placed on 05/16/17 by IR. Fevers: Noted to be 102.0 , improved to 100.0 with Tylenol. Infectious disease consulted, fevers are noninfectious discussed with Dr Beavers ID specialist no need of abx. Hypernatremic: Na improving. Check labs in am. Nutrition: Pt requiring others to feed eat. Added Ensure to diet. Acute left subdural hematoma with right occipital intraventricular blood and 7 mm midline shift toward the right. -Being managed by neurosurgeon. -Very poor prognosis. -CT scan was repeated and it was stable. -Mental status dye she has improved with hydration. Fevers as above -Patient taken off of IV antibiotics yesterday since she completed treatment for her UTI and cultures are negative. She then spiked another fever. -Will need to do fever workup and get chest x-ray, UA, blood cultures. She has no leukocytosis. -Based on results will determine if I will restart antibiotics. NO abx need per ID. Hypernatremic -Most likely patient is not taking in enough fluid intake. -Will need to restart IV fluids. Monitor sodium levels. Acute renal failure -Most likely secondary to dehydration. -Resolved with IV fluids and boluses. -Patient is now eating well. -Encourage oral intake. Hypertension -Controlled. Continue amlodipine. - Continue with when necessary medication Vasotec 1.25 mg IV q. 6-hour p.r.n. for systolic blood pressure greater than 150 or diastolic blood pressure greater than 90. History of seizure disorder. -Monitor neuro status closely and avoid any sedatives. Continue with antiseizure meds. The patient is on Vimpat 200 mg b.i.d. Keppra, Depakote, Topamax and Dilantin 200 mg IV q.8h. Dilantin and Depakote level checked on 05/05 within range. Urinary tract infection. -urine cultures grew with Providencia stuartii. Blood cultures were negative so Rocephin was discontinued yesterday. Thrombocytopenia -Improving. -Strategy Director following. Hit panel mildly weakened. -No signs of active bleeding. -Since thrombocytopenia is improving customer care voice consultant signed off. History of schizophrenia. -Continue home medication. 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 Discharge Planning Very poor prognosis. Pending brother to sign forms for hospice but difficulty reaching her brother since he is homeless. Palliative care is following. Hospice care has signed off at this time as they are unable to get the brother to sign documentation and said pt will need to return to SNF. Discussed with Dr Beavers origin of fever is noninfectious. Hem/onc recommends IVC filter as she is a poor candidate for anticoagulation. . Brother POAlberto agrees for IVC filter placement. Plan to DC to SNF after IVC filter placed. Consult IR for IVC filter placement. Esperanza Arias MD May 16, 2017 11:04
[2017-05-16 12:21] VITALS: BP 150/66; PULSE 84; RESP 20; TEMP 99.3; O2SAT 100
[2017-05-16 15:29] VITALS: BP 117/69; PULSE 93; RESP 20; TEMP 99.9; O2SAT 98
== END 2017-05-16 16:45 | DRG 40 ==
LOC: NEPE 14:52 → NEDA 17:51 → N03A 19:14 → N05B 05-03 18:46
PROVIDERS: ADMIT Hospitalist; ATTEND Hospitalist
PROC: 06H03DZ Insertion of Intraluminal Device into Inferior Vena Cava, Percutaneous Approach (ICD-10-PCS; principal; 2017-05-16)
DX: S06.5X9A Traumatic subdural hemorrhage with loss of consciousness of unspecified duration, initial encounter (principal); J96.01 Acute respiratory failure with hypoxia; S06.6X9A Traumatic subarachnoid hemorrhage with loss of consciousness of unspecified duration, initial encounter; N17.9 Acute kidney failure, unspecified; G40.911 Epilepsy, unspecified, intractable, with status epilepticus; I82.411 Acute embolism and thrombosis of right femoral vein; E87.0 Hyperosmolality and hypernatremia; D69.59 Other secondary thrombocytopenia; E86.0 Dehydration; R47.01 Aphasia; N39.0 Urinary tract infection, site not specified; I82.431 Acute embolism and thrombosis of right popliteal vein; I10 Essential (primary) hypertension; W18.30XA Fall on same level, unspecified, initial encounter; Y93.9 Activity, unspecified; Y92.129 Unspecified place in nursing home as the place of occurrence of the external cause; K58.9 Irritable bowel syndrome, unspecified; K59.00 Constipation, unspecified; F31.9 Bipolar disorder, unspecified; F25.9 Schizoaffective disorder, unspecified; R32 Unspecified urinary incontinence; M19.90 Unspecified osteoarthritis, unspecified site; F41.9 Anxiety disorder, unspecified; I69.398 Other sequelae of cerebral infarction; H91.90 Unspecified hearing loss, unspecified ear; Z79.01 Long term (current) use of anticoagulants; Z79.82 Long term (current) use of aspirin; Z98.51 Tubal ligation status; Z51.5 Encounter for palliative care; E78.5 Hyperlipidemia, unspecified; J44.9 Chronic obstructive pulmonary disease, unspecified; F17.210 Nicotine dependence, cigarettes, uncomplicated; I25.10 Atherosclerotic heart disease of native coronary artery without angina pectoris; I65.21 Occlusion and stenosis of right carotid artery; K21.9 Gastro-esophageal reflux disease without esophagitis; R25.1 Tremor, unspecified; Z66 Do not resuscitate
CPT/HCPCS: 36600; 37191; 70450; 71010; 71020; 72125; 72170; 76937; 80048; 80053; 80164; 80185; 81001; 82805; 82948; 83735; 84100; 84145; 84443; 85025; 85027; 85384; 85610; 85730; 86022; 87040; 87077; 87086; 87186; 87205; 87641; 93970; 94640; 94664; 95819; 96372; C1880; J0696; J1165; J1953; J2060; J7030; J7040; Q9967

== ENCOUNTER 2017-05-19 09:09 | Inpatient (IN) | payer MEDICARE, OTHER ==
[~2017-05-19] VITALS: Ht 170.2 cm; Wt 70.4 kg
[2017-05-19] VITALS (9 sets, daily range): BP systolic 118–171; BP diastolic 64–106; PULSE 84–123; RESP 16–25; TEMP 96.6–100.9; O2SAT 95–98
[~2017-05-19 09:09] MED LIST changes: +AMLO10 PO; -ASPI81TA23 PO; +DEPA250T2 PO; -DEPA500T3 PO; -FOLI1TAB6 PO; +FOLI400T PO; +HYDR-3799 PO; +NAME10TA PO
[2017-05-19] MEDS ORDERED: PIPERACIL-TAZO 3.375 GM PREMIX 50 ML IV ONE (09:45)
[2017-05-19] MEDS ORDERED: SODIUM CHLOR 0.9% 1000 ML INJ 1,000 ML IV ONE (09:45)
[2017-05-19] MEDS ORDERED: VANCOMYCIN INJ 1,000 MG in SODIUM CHLOR 0.9% 250 ML INJ 250 ML IV ONE (09:45)
--- NOTE | 2017-05-19 09:52 | PD ---
HPI Chief Complaint: Altered Mental Status Time Seen by Provider: 09:21 Travel History International Travel<30 days: No Contact w/Intl Traveler<30days: No Traveled to known affect area: No History of Present Illness HPI 61-year-old female was brought to the ED [facility] local [facility] for altered mental status and fever. Patient was reported to have increasing mental confusion and fever this morning. Patient was admitted to [facility] April 30 and discharged May 16 with diagnosis of subdural hematoma, acute hypoxic respiratory failure, status epilepticus, history of CVA, carotid stenosis, coronary artery disease, GERD, schizophrenia, hypertension. Patient had fever during that admission. Infectious disease consultation initiated. Fever as was deemed to be noninfectious process and IV antibiotic was started and then stopped. Patient had IVC filter placement. Patient discharged to [facility]. Patient was reportedly stable until started having more confusion , altered mental status and fever this morning. Patient's nonverbal unable to provide any information. PFSH Past Medical History Hx Anticoagulant Therapy: Yes (325MG ASA DAILY) Arthritis: Yes Asthma: No Autoimmune Disease: No Blood Disorders: No Bipolar Disorder: Yes Anxiety: Yes Depression: Yes Heart Rhythm Problems: No Cancer: No Cardiovascular Problems: Yes (hyper tension) High Cholesterol: No Chemotherapy: No Chest Pain: Yes (gets chest pain) Congestive Heart Failure: No COPD: No Cerebrovascular Accident: Yes Diabetes: No Diminished Hearing: Yes Endocrine: No Gastrointestinal Disorders: Yes (IBS) Genetic Disorder: Yes (IBS) GERD: No Glaucoma: No Genitourinary: Yes (incontinent of urine) Headaches: Yes (once a week) Hepatitis: No Hiatal Hernia: No Hypertension: Yes Immune Disorder: No Implanted Vascular Access Dvce: No Kidney Stones: No Musculoskeletal: Yes (has seizures then becomes weak and falls) Neurologic: Yes (seizure disorder) Psychiatric: Yes (psych history) Reproductive: Yes (tubes tied) Respiratory: No Immunizations Current: No Migraines: No Myocardial Infarction: No Radiation Therapy: No Renal Failure: No Schizophrenia: Yes (SCHIZOAFFECTIVE) Seizures: Yes Sickle Cell Disease: No Sleep Apnea: No Thyroid Disease: No Ulcer: No PNEUMOCCOCAL Vaccine (Year): 2 Menopausal: Yes : 0 Tubal Ligation: Yes Past Surgical History Abdominal Surgery: No AICD: No Appendectomy: No Arteriovenous Shunt: No Cardiac Surgery: No Cholecystectomy: No Ear Surgery: Yes (BILATERAL EAR) Endocrine Surgery: No Eye Surgery: No Genitourinary Surgery: No Gynecologic Surgery: Yes (tubal ligation) Hysterectomy: No Insulin Pump: No Joint Replacement: No Neurologic Surgery: No Oral Surgery: Yes (Jaw/ TMJ) Pacemaker: No Thoracic Surgery: No Other Surgery: Yes (hx tubes tied. ) Social History Alcohol Use: No Tobacco Use: No Substance Use: No Allergies-Medications (Allergen,Severity, Reaction): Coded Allergies: aripiprazole (Unverified Allergy, Unknown, 05/19/17) Reported Meds & Prescriptions Reported Meds & Active Scripts Active Vimpat (Lacosamide) 100 Mg Tab 200 Mg PO BID Norvasc (Amlodipine Besylate) 10 Mg Tab 10 Mg PO DAILY Hydralazine HCl 25 Mg Tablet 50 Mg PO Q8HR PRN Metoprolol Tartrate 25 Mg Tab 50 Mg PO BID Topamax (Topiramate) 100 Mg Tab 100 Mg PO BID Reported Namenda (Memantine) 10 Mg Tab 10 Mg PO BID Depakote DR (Divalproex Sodium) 250 Mg Tabdr 750 Mg PO Q12HR Folic Acid 0.4 Mg Tab 800 Mcg PO DAILY Dilantin (Phenytoin Extended) 100 Mg Cap 300 Mg PO Q12HR Colace (Docusate Sodium) 100 Mg Capsule 100 Mg PO DAILY Symbicort Inh (Budesonide/Formoterol Fumarate) 160-4.5 Mcg/Act Aero 2 Puff INH BID Ventolin Hfa 18 GM Inh (Albuterol Sulfate) 90 Mcg/Act Aer 2 Puff INH QID Spiriva Handihaler (Tiotropium Inh) 18 Mcg Cap 18 Mcg INH DAILY DO NOT SWALLOW CAPS Levetiracetam 1,000 Mg Tab 1,000 Mg PO TID Citalopram (Citalopram Hydrobromide) 40 Mg Tab 40 Mg PO DAILY Atorvastatin (Atorvastatin Calcium) 80 Mg Tab 80 Mg PO HS Review of Systems ROS Limitations: Altered Mental Status Physical Exam Narrative GENERAL: Well-nourished, well-developed patient. SKIN: Focused skin assessment warm/dry. HEAD: Normocephalic. EYES: No scleral icterus. Patient has mild yellowish discharge from the right eye. Pupils 1.5 mm reactive. NECK: Supple, trachea midline. No JVD or lymphadenopathy. No meningismus CARDIOVASCULAR: Regular rate and rhythm without murmurs, gallops, or rubs. RESPIRATORY: Breath sounds equal bilaterally. No accessory muscle use. GASTROINTESTINAL: Abdomen soft, mildly distended. Patient seemed to have pain on palpation of the abdomen. Active bowel sounds. MUSCULOSKELETAL: No cyanosis, or edema. BACK: Nontender without obvious deformity. No CVA tenderness. Neurologic exam: Patient is nonverbal. Patient open eyes on command. Patient does not move extremity on painful stimuli. Deep tendon reflexes +1. Negative Babinski. Data Data Last Documented VS Vital Signs Date Time Temp Pulse Resp B/P (MAP) Pulse Ox O2 Delivery O2 Flow Rate FiO2 05/19/17 11:22 99.1 104 24 128/75 (92) 95 Nasal Cannula 2.00 Orders Orders Electrocardiogram (05/19/17 09:33) Complete Blood Count With Diff (05/19/17:33) Comprehensive Metabolic Panel (05/19/17:33) Creatine Kinase (Cpk) (05/19/17:33) Troponin I (05/19/17:33) B-Type Natriuretic Peptide (05/19/17:33) Prothrombin Time / Inr (Pt) (05/19/17:33) Act Partial Throm Time (Ptt) (05/19/17:33) Blood Culture (05/19/17:33) Urinalysis - C+S If Indicated (05/19/17:33) Thyroid Stimulating Hormone (05/19/17:33) Chest, Single Ap (05/19/17 09:33) Ct Brain W/O Iv Contrast(Rout) (05/19/17 09:33) Iv Access Insert/Monitor (05/19/17:33) Ecg Monitoring (05/19/17:33) Oxygen Administration (05/19/17:33) Oximetry (05/19/17 09:33) Lactic Acid Sepsis Protocol (05/19/17 09:33) Sodium Chlor 0.9% 1000 Ml Inj (Ns 1000 M (05/19/17 09:45) Vancomycin Inj (Vancomycin Inj) (05/19/17 09:45) Piperacil-Tazo 3.375 Gm Premix (Zosyn 3. (05/19/17 09:45) Urinary Catheter Insert/Apply (05/19/17 10:33) Ct Abd/Pel W/O Iv Contrast (05/19/17 11:14) Labs Laboratory Tests Test 05/19/17 09:40 05/19/17 09:50 White Blood Count 16.2 TH/MM3 Red Blood Count 3.76 MIL/MM3 Hemoglobin 11.5 GM/DL Hematocrit 35.7 % Mean Corpuscular Volume 94.8 FL Mean Corpuscular Hemoglobin 30.5 PG Mean Corpuscular Hemoglobin Concent 32.2 % Red Cell Distribution Width 15.6 % Platelet Count 484 TH/MM3 Mean Platelet Volume 7.5 FL Neutrophils (%) (Auto) 73.9 % Lymphocytes (%) (Auto) 8.4 % Monocytes (%) (Auto) 15.3 % Eosinophils (%) (Auto) 1.8 % Basophils (%) (Auto) 0.6 % Neutrophils # (Auto) 11.9 TH/MM3 Lymphocytes # (Auto) 1.4 TH/MM3 Monocytes # (Auto) 2.5 TH/MM3 Eosinophils # (Auto) 0.3 TH/MM3 Basophils # (Auto) 0.1 TH/MM3 CBC Comment AUTO DIFF Differential Total Cells Counted 100 Neutrophils % (Manual) 66 % Band Neutrophils % 11 % Lymphocytes % 9 % Monocytes % 8 % Eosinophils % 2 % Neutrophils # (Manual) 13.1 TH/MM3 Metamyelocytes 3 % Myelocytes 1 % Differential Comment FINAL DIFF MANUAL Platelet Estimate HIGH Platelet Morphology Comment NORMAL Prothrombin Time 13.0 SEC Prothromb Time International Ratio 1.2 RATIO Activated Partial Thromboplast Time 29.4 SEC Blood Urea Nitrogen 49 MG/DL Creatinine 1.51 MG/DL Random Glucose 131 MG/DL Total Protein 7.6 GM/DL Albumin 2.1 GM/DL Calcium Level 8.3 MG/DL Alkaline Phosphatase 192 U/L Aspartate Amino Transf (AST/SGOT) 383 U/L Alanine Aminotransferase (ALT/SGPT) 190 U/L Total Bilirubin 0.6 MG/DL Sodium Level 147 MEQ/L Potassium Level 4.1 MEQ/L Chloride Level 114 MEQ/L Carbon Dioxide Level 21.6 MEQ/L Anion Gap 11 MEQ/L Estimat Glomerular Filtration Rate 35 ML/MIN Lactic Acid Level 2.2 mmol/L Total Creatine Kinase 87 U/L Troponin I LESS THAN 0.02 NG/ML B-Type Natriuretic Peptide 43 PG/ML Thyroid Stimulating Hormone 3rd Gen 3.080 uIU/ML Urine Color DARK-YELLOW Urine Turbidity CLEAR Urine pH 6.0 Urine Specific Sulphur 1.018 Urine Protein TRACE mg/dL Urine Glucose (UA) TRACE mg/dL Urine Ketones NEG mg/dL Urine Occult Blood NEG Urine Nitrite NEG Urine Bilirubin NEG Urine Urobilinogen 2.0 MG/DL Urine Leukocyte Esterase NEG Urine RBC 0-3 /hpf Urine Bacteria FEW /hpf Microscopic Urinalysis Comment CULT NOT INDICATED MDM Medical Decision Making Medical Screen Exam Complete: Yes Emergency Medical Condition: Yes Interpretation(s) Last Impressions Head CT 05/19/17932 Signed Impressions: Service Date/Time: Friday, May 19, 2017 11:08 - CONCLUSION: 1. Subacute left temporal, parietal and frontal lobe subdural hematoma and a fairly broad area of left temporal lobe cerebral edema and developing encephalomalacia with approximately 4 mm of rightward midline shift. The subdural component is slightly larger than before but I don't see any acute blood products or other evidence of recent or active bleeding. The previously seen parenchymal hemorrhage of the left temporal lobe has almost completely resolved. 2. Decreasing intraventricular blood, now trace. Moderate ventriculomegaly not significantly changed. 3. Subacute appearing blood seen in the sphenoid sinuses and would be of concern for a nondisplaced skull base fracture. Ernesto Parham MD Chest X-Ray 05/19/17932 Signed Impressions: Service Date/Time: Friday, May 19, 2017 09:39 - CONCLUSION: No evidence of acute cardiopulmonary disease. Ernesto Parham MD 12:04 PM. CBC WBC 16.2. Hemoglobin 11.5 hematocrit 35.7. Platelets 484. 73 neutrophil. Sodium 147. Chloride 114. BUN 49. Creatinine 1.51. Lactic acid 2.2. AST 383. ALT 190. Alkaline phosphatase 192. Cardiac enzymes are normal. BNP 43. UA is negative. CT shows lung mass and retroperitoneal mass. Differential Diagnosis Differential diagnosis including sepsis, viral syndrome, TIA, CVA, electrolyte imbalance, dehydration, SD. Narrative Course 61-year-old female with increasing mental confusion and fever. Recently was admitted for subdural hematoma and fever. Normal saline solution 1 L IV bolus. Vancomycin 1 g IV. Zosyn 3.375 g IV given. Hinds catheter inserted. Patient has dark urine, 2700 cc. Diagnosis Primary Impression: Fever Qualified Codes: R50.9 - Fever, unspecified Additional Impressions: Leukocytosis Qualified Codes: D72.829 - Elevated white blood cell count, unspecified Acute kidney injury Mahendra Marti MD May 19, 2017 09:52
--- NOTE | 2017-05-19 09:59 | RADRPT ---
EXAM DATE/TIME: 05/19/2017 09:39 [facility] COMPARISON: CHEST PA & LAT, May 09, 2017, 10:38. INDICATIONS : Fever MEDICAL HISTORY : HTN, seizure disorder, Schizoaffective disorder, urinary incontinence,anxiety,arthritis, bi polar dis order SURGICAL HISTORY : tubal ligation, oral surgery ENCOUNTER: Initial ACUITY: 1 day PAIN SCORE: Non-responsive. LOCATION: chest FINDINGS: A single view of the chest demonstrates the lungs to be symmetrically aerated without evidence of mas s, infiltrate or effusion. The cardiomediastinal contours are unremarkable. Old left rib fractures a re again noted. CONCLUSION: No evidence of acute cardiopulmonary disease. Ernesto Parham MD on May 19, 2017 at 9:58 Board Certified Radiologist. This report was verified electronically.
[2017-05-19 10:02] LABS: AUTOMATED NEUTROPHIL # 11.9 TH/MM3 (1.8-7.7); BASOPHIL # 0.1 TH/MM3 (0-0.2); BASOPHIL % 0.6 % (0.0-2.0); EOSINOPHIL # 0.3 TH/MM3 (0-0.4); EOSINOPHIL % 1.8 % (0.0-4.0); HEMATOCRIT 35.7 % (35.0-46.0); LYMPH % 8.4 % (9.0-44.0); LYMPHOCYTE # 1.4 TH/MM3 (1.0-4.8); MEAN CELL VOLUME 94.8 FL (80.0-100.0); MEAN CORPUSCULAR HEMOGLOBIN 30.5 PG (27.0-34.0); MEAN CORPUSCULAR HGB CONC 32.2 % (32.0-36.0); MONO % 15.3 % (0.0-8.0); NEUT % 73.9 % (16.0-70.0); PLATELET COUNT 484 TH/MM3 (150-450); RED BLOOD COUNT 3.76 MIL/MM3 (4.00-5.30); RED CELL DISTRIBUTION WIDTH 15.6 % (11.6-17.2); WHITE BLOOD COUNT 16.2 TH/MM3 (4.0-11.0)
[2017-05-19 10:08] LABS: BLOOD, URINE NEG (NEG); GLUCOSE,URINE TRACE mg/dL (NEG); KETONE, URINE NEG (NEG); NITRITE,URINE NEG (NEG)
[2017-05-19 10:13] LABS: HEMO FLAGS AUTO DIFF
[2017-05-19 10:15] LABS: APTT (PATIENT) 29.4 SEC (24.3-30.1); INTERNATIONAL NORMALIZED RATIO 1.2 RATIO
[2017-05-19 10:29] LABS: BACTERIA, URINE FEW /hpf; RBC, URINE 0-3 /hpf (0-3)
[2017-05-19 10:30] LABS: COMMENT (UR) CULT NOT INDICATED; CULTURE IF INDICATED CULT NOT INDICATED; URINE COLOR DARK-YELLOW (YELLW/STRAW)
[2017-05-19 10:48] LABS: BANDS 11 % (0-6); EOSINOPHILS 2 % (0-4); METAMYELOCYTES 3 % (0-1); MYELOCYTES 1 % (0-0); NEUTROPHIL # MANUAL DIFF 13.1 TH/MM3 (1.8-7.7); PLATELET ESTIMATE SMEAR HIGH (NORMAL); PLATELET MORPHOLOGY NORMAL (NORMAL); POLYS (SEG NEUTROPHILS) 66 % (16-70); SCAN/DIFF FINAL DIFF MANUAL; WBC DIFF SAMPLE 100
[2017-05-19 10:51] LABS: ALKALINE PHOSPHATASE 192 U/L (45-117); ALT (GPT) 190 U/L (10-53); ANION GAP 11 MEQ/L (5-15); AST (GOT) 383 U/L (15-37); BICARBONATE 21.6 MEQ/L (21.0-32.0); BLOOD UREA NITROGEN 49 MG/DL (7-18); CHLORIDE 114 MEQ/L (98-107); GLOMERULAR FILTRATION RATE 35 ML/MIN (>89); POTASSIUM 4.1 MEQ/L (3.5-5.1); SODIUM (NA) 147 MEQ/L (136-145); TOTAL BILIRUBIN ADULT 0.6 MG/DL (0.2-1.0)
[2017-05-19 10:52] LABS: CREATINE KINASE 87 U/L (26-192)
--- NOTE | 2017-05-19 11:36 | RADRPT ---
EXAM DATE/TIME: 05/19/2017 11:08 [facility] COMPARISON: CT BRAIN W/O CONTRAST, May 05, 2017, 10:32. INDICATIONS : Altered mental status, confusion. RADIATION DOSE: 41.24 CTDIvol (mGy) ; Tabletop CT Head MEDICAL HISTORY : Chronic obstructive pulmonary disease. Hypertension. Cardiovascular diseaseSeizures.Subdural hematoma . SURGICAL HISTORY : None. ENCOUNTER: Initial ACUITY: 1 day PAIN SCALE: 0/10 LOCATION: cranial TECHNIQUE: Multiple contiguous axial images were obtained of the head. Using automated exposure control and adj ustment of the mA and/or kV according to patient size, radiation dose was kept as low as reasonably a chievable to obtain optimal diagnostic quality images. DICOM format image data is available electro nically for review and comparison. FINDINGS: Left temporal lobe parenchymal hemorrhage has almost completely resolved. There is an approximately 3 .7 x 4.6 cm area of left temporal lobe cerebral edema. There also appears to be some temporal lobe en cephalomalacia developing, especially anterior/inferior. A subacute left temporal, parietal and front al subdural hemorrhage is demonstrated, slightly larger than on the prior CT but without any acute bl ood products present. Maximal thickness of the left subdural hemorrhage is approximately 10 mm. There is approximately 4 mm of rightward midline shift. Small intraventricular blood slightly decreased in the interim. There is moderate ventriculomegaly si milar to before. There is subacute appearing blood in the sphenoid air cells, decreased from before. CONCLUSION: 1. Subacute left temporal, parietal and frontal lobe subdural hematoma and a fairly broad area of lef t temporal lobe cerebral edema and developing encephalomalacia with approximately 4 mm of rightward m idline shift. The subdural component is slightly larger than before but I don't see any acute blood p roducts or other evidence of recent or active bleeding. The previously seen parenchymal hemorrhage of the left temporal lobe has almost completely resolved. 2. Decreasing intraventricular blood, now trace. Moderate ventriculomegaly not significantly changed. 3. Subacute appearing blood seen in the sphenoid sinuses and would be of concern for a nondisplaced s kull base fracture. Ernesto Parham MD on May 19, 2017 at 11:24 Board Certified Radiologist. This report was verified electronically.
--- NOTE | 2017-05-19 11:48 | RADRPT ---
EXAM DATE/TIME: 05/19/2017 11:13 [facility] COMPARISON: CT ABDOMEN & PELVIS W/O CONTRAST, November 29, 2009, 12:20. INDICATIONS : Abdominal pain ORAL CONTRAST: No oral contrast ingested. RADIATION DOSE: 9.89 CTDIvol (mGy) MEDICAL HISTORY : Cardiovascular disease. Chronic obstructive pulmonary disease. Hypertension.Seizures, SDH SURGICAL HISTORY : None. ENCOUNTER: Initial ACUITY: 1 day PAIN SCALE: 6/10 LOCATION: abdominal TECHNIQUE: Volumetric scanning of the abdomen and pelvis was performed. Using automated exposure control and ad justment of the mA and/or kV according to patient size, radiation dose was kept as low as reasonably achievable to obtain optimal diagnostic quality images. DICOM format image data is available electro nically for review and comparison. FINDINGS: There is distention of the left renal collecting system and renal pelvis. A vague mass like area is s een near the ureteropelvic junction measuring approximately 2.2 x 4.3 4.5 cm. I'm unsure if this is a mass or some lia-nephric edema or blood. The ureter appears to be only slightly distended below thi s. The right kidney and ureter are normal. Noncontrast appearance of the liver, spleen and adrenal gland s within normal limits. Scattered calcifications again seen of the pancreas compatible with chronic p ancreatitis changes. No acute inflammatory changes are seen. There is stool-filled mildly distended colon throughout. No small bowel or gastric distention seen. N o free air. Small fat containing inguinal hernia on the left. No bowel herniation. Lung bases are only partly included on the study and there is an irregular pleural-based mass postero laterally at the left lung base measuring approximately 17 x 36 mm in size. This appears to partially invade the chest wall. There is diffuse body wall edema/anasarca. CONCLUSION: 1. There is a pleural-based mass of the left lung base and a questionable retroperitoneal mass that i nvolves the left ureteropelvic junction region of concern for neoplasm/malignancy. 2. Constipation. No obstruction or acute inflammatory changes seen in the gastrointestinal tract. 3. Body wall edema/anasarca. 4. Chronic pancreatitis. No evidence of acute pancreatitis. 5. Small fat containing left inguinal hernia. Ernesto Parham MD on May 19, 2017 at 11:38 Board Certified Radiologist. This report was verified electronically.
--- NOTE | 2017-05-19 11:52 | EKG ---
Date Performed: 05/19/2017 Time Performed: 09:33:53 PTAGE: 61 years EKG: SINUS TACHYCARDIA NONSPECIFIC ST & T-WAVE ABNORMALITY ABNORMAL RHYTHM ECG PREVIOUS TRACING : 01/11/2017 17.00 Compared to the prior study, nonspecific T-wave changes are more prominent. DOCTOR: Rui Hawkins Interpretating Date/Time 05/19/2017 11:50:39
[2017-05-19 11:57] LABS: LACTIC ACID GHOST NOT REPORTABLE
[2017-05-19] MEDS ORDERED: SENNOSIDES 8.6 MG TAB PO PRN (13:15)
[2017-05-19] MEDS ORDERED: Vancomycin Consult Pharmacy 1 EA OTHER SCH (13:15)
[2017-05-19] MEDS ORDERED: ONDANSETRON HCL 4 MG/2 ML VIAL IVP PRN (13:15)
[2017-05-19] MEDS ORDERED: BISACODYL 10 MG SUPP RECTAL PRN (13:15)
[2017-05-19] MEDS ORDERED: MAGNESIUM HYDROXIDE SUSP 30 ML CUP PO PRN (13:15)
[2017-05-19] MEDS ORDERED: NALOXONE HCL 0.4 MG/ML AMP IV PUSH PRN (13:15)
[2017-05-19] MEDS ORDERED: LACTULOSE SYRUP 20 GM/30 ML CUP PO PRN (13:15)
[2017-05-19] MEDS ORDERED: ACETAMINOPHEN 325 MG TAB PO PRN (13:15)
[2017-05-19] MEDS ORDERED: SODIUM CHLORIDE 0.9% FLUSH 10 ML FLUSH IV FLUSH PRN (13:15)
[2017-05-19] MEDS ORDERED: hydrALAZINE HCL 50 MG TAB PO PRN (13:30)
--- NOTE | 2017-05-19 13:38 | HHI.HP ---
[facility] Unknown Admission Diagnosis fever. Leukocytosis. Acute kidney injury. Diagnoses: Travel History International Travel<30 Days: No Contact w/Intl Traveler <30 Da: No Traveled to Known Affected Are: No History of Present Illness 61-year-old female with a past medical history of subdural hematoma, seizure disorder, history of CVA, carotid stenosis, coronary artery disease, GERD, schizophrenia and hypertension brought to the ED by EMS this morning for increasing altered mental status and fever. The patient resides in a SNF and was reported to have increasing mental confusion and fever. She was recently discharged on May 16 after a 2 week hospital stay for subdural hematoma. She had fevers during the hospitalization and infectious disease was consulted and determined fevers were noninfectious in origin and the patient was discharged to SNF. Today patient was 100.9 in the ED and tachycardic to 119. She has a leukocytosis to 16.2 with a left shift. Lactic acid 2.2. UA, chest x -ray and abdominal CT showed no acute infectious process. Also with ERIC with BUN/creatinine 49/1.51 (baseline 0.44). Head CT shows subdural hematoma that is slightly larger than previous without acute blood products or evidence of recent or active bleeding. Patient is nonverbal at baseline. Review of Systems Unable to obtain as patient is nonverbal Past Family Social History Past Medical History (Obtained from medical records) Subdural hematoma Seizure disorder Schizoaffective disorder Urinary incontinence Anxiety Arthritis Bipolar disorder Hypertension History of CVA GERD Past Surgical History Tubal ligation Oral surgery Reported Medications Reported Meds & Active Scripts Active Vimpat (Lacosamide) 100 Mg Tab 200 Mg PO BID Norvasc (Amlodipine Besylate) 10 Mg Tab 10 Mg PO DAILY Hydralazine HCl 25 Mg Tablet 50 Mg PO Q8HR PRN Metoprolol Tartrate 25 Mg Tab 50 Mg PO BID Topamax (Topiramate) 100 Mg Tab 100 Mg PO BID Reported Namenda (Memantine) 10 Mg Tab 10 Mg PO BID Depakote DR (Divalproex Sodium) 250 Mg Tabdr 750 Mg PO Q12HR Folic Acid 0.4 Mg Tab 800 Mcg PO DAILY Dilantin (Phenytoin Extended) 100 Mg Cap 300 Mg PO Q12HR Colace (Docusate Sodium) 100 Mg Capsule 100 Mg PO DAILY Symbicort Inh (Budesonide/Formoterol Fumarate) 160-4.5 Mcg/Act Aero 2 Puff INH BID Ventolin Hfa 18 GM Inh (Albuterol Sulfate) 90 Mcg/Act Aer 2 Puff INH QID Spiriva Handihaler (Tiotropium Inh) 18 Mcg Cap 18 Mcg INH DAILY DO NOT SWALLOW CAPS Levetiracetam 1,000 Mg Tab 1,000 Mg PO TID Citalopram (Citalopram Hydrobromide) 40 Mg Tab 40 Mg PO DAILY Atorvastatin (Atorvastatin Calcium) 80 Mg Tab 80 Mg PO HS Allergies: Coded Allergies: aripiprazole (Unverified Allergy, Unknown, 05/19/17) Family History Unable to obtain Social History [facility]. Nonsmoker. Nondrinker. Physical Exam Vital Signs Vital Signs Date Time Temp Pulse Resp B/P (MAP) Pulse Ox O2 Delivery O2 Flow Rate FiO2 05/19/17 11:22 99.1 104 24 128/75 (92) 95 Nasal Cannula 2.00 05/19/17 10:57 99.1 107 159/79 (105) 98 Room Air 05/19/17 10:09 100.9 115 24 171/95 (120) 95 Nasal Cannula 3.00 05/19/17 10:07 100.9 05/19/17 09:53 119 24 163/106 (125) 97 Nasal Cannula 3.00 05/19/17 09:52 97 Nasal Cannula 3.00 05/19/17 09:52 97 Nasal Cannula 3.00 05/19/17 09:32 24 95 Nasal Cannula 3.00 05/19/17 09:32 123 25 163/106 (125) 95 Nasal Cannula 3.00 05/19/17 09:29 123 24 163/106 (125) 95 Physical Exam GENERAL: female lying in bed, appears older than stated age, nonverbal SKIN: No rashes, ecchymoses or lesions. Cool and dry. HEAD: Atraumatic. Normocephalic. EYES: Pupils equal round and reactive. Extraocular motions intact. No scleral icterus. No injection or drainage. ENT: Nose without bleeding, purulent drainage or septal hematoma. Airway patent. NECK: Trachea midline. No JVD or lymphadenopathy. Supple, no meningeal signs. CARDIOVASCULAR: Regular rate and rhythm without murmurs, gallops, or rubs. RESPIRATORY: Clear to auscultation. Breath sounds equal bilaterally. No wheezes , rales, or rhonchi. GASTROINTESTINAL: Abdomen soft, non-tender, nondistended. No hepato-splenomegaly , or palpable masses. No guarding. MUSCULOSKELETAL: 1+ pitting edema to the midshin NEUROLOGICAL: Nonverbal. Opens her eyes to verbal stimuli. Does not follow commands. Laboratory Laboratory Tests Test 05/19/17 09:40 05/19/17 09:50 White Blood Count 16.2 Red Blood Count 3.76 Hemoglobin 11.5 Hematocrit 35.7 Mean Corpuscular Volume 94.8 Mean Corpuscular Hemoglobin 30.5 Mean Corpuscular Hemoglobin Concent 32.2 Red Cell Distribution Width 15.6 Platelet Count 484 Mean Platelet Volume 7.5 Neutrophils (%) (Auto) 73.9 Lymphocytes (%) (Auto) 8.4 Monocytes (%) (Auto) 15.3 Eosinophils (%) (Auto) 1.8 Basophils (%) (Auto) 0.6 Neutrophils # (Auto) 11.9 Lymphocytes # (Auto) 1.4 Monocytes # (Auto) 2.5 Eosinophils # (Auto) 0.3 Basophils # (Auto) 0.1 CBC Comment AUTO DIFF Differential Total Cells Counted 100 Neutrophils % (Manual) 66 Band Neutrophils % 11 Lymphocytes % 9 Monocytes % 8 Eosinophils % 2 Neutrophils # (Manual) 13.1 Metamyelocytes 3 Myelocytes 1 Differential Comment FINAL DIFF MANUAL Platelet Estimate HIGH Platelet Morphology Comment NORMAL Prothrombin Time 13.0 Prothromb Time International Ratio 1.2 Activated Partial Thromboplast Time 29.4 Blood Urea Nitrogen 49 Creatinine 1.51 Random Glucose 131 Total Protein 7.6 Albumin 2.1 Calcium Level 8.3 Alkaline Phosphatase 192 Aspartate Amino Transf (AST/SGOT) 383 Alanine Aminotransferase (ALT/SGPT) 190 Total Bilirubin 0.6 Sodium Level 147 Potassium Level 4.1 Chloride Level 114 Carbon Dioxide Level 21.6 Anion Gap 11 Estimat Glomerular Filtration Rate 35 Lactic Acid Level 2.2 Total Creatine Kinase 87 Troponin I LESS THAN 0.02 B-Type Natriuretic Peptide 43 Thyroid Stimulating Hormone 3rd Gen 3.080 Urine Color DARK-YELLOW Urine Turbidity CLEAR Urine pH 6.0 Urine Specific [place] 1.018 Urine Protein TRACE Urine Glucose (UA) TRACE Urine Ketones NEG Urine Occult Blood NEG Urine Nitrite NEG Urine Bilirubin NEG Urine Urobilinogen 2.0 Urine Leukocyte Esterase NEG Urine RBC 0-3 Urine Bacteria FEW Microscopic Urinalysis Comment CULT NOT INDICATED Date/Time Source Procedure Growth Status 05/19/17 09:45 Blood Peripheral Aerobic Blood Culture Pending Received 05/19/17 09:45 Blood Peripheral Anaerobic Blood Culture Pending Received Result Diagram: 05/19/1740 05/19/17939 Caprini VTE Risk Assessment Caprini VTE Risk Assessment: Mod/High Risk (score >= 2) VTE Pharm Contraindication: Caprini Risk Assessment Model Point Value = 1 Point Value = 2 Point Value = 3 Point Value = 5 Age 41-60 Minor surgery BMI > 25 kg/m2 Swollen legs Varicose veins or History of unexplained or recurrent spontaneous Oral contraceptives or hormone replacement Sepsis (< 1 month) Serious lung disease, including pneumonia (< 1 month) Abnormal pulmonary function Acute myocardial infarction Congestive heart failure (< 1 month) History of inflammatory bowel disease Medical patient at bed rest Age 61-74 Arthroscopic surgery Major open surgery (> 45 min) Laparoscopic surgery (> 45 min) Malignancy Confined to bed (> 72 hours) Immobilizing plaster cast Central venous access Age >= 75 History of VTE Family history of VTE Factor V Leiden Prothrombin [id number] Lupus anticoagulant Anticardiolipin antibodies Elevated serum homocysteine Heparin-induced thrombocytopenia Other congenital or acquired thrombophilia Stroke (< 1 month) Elective arthroplasty Hip, pelvis, or leg fracture Acute spinal cord injury (< 1 month) Prophylaxis Regimen Total Risk Factor Score Risk Level Prophylaxis Regimen 0-1 Low Early ambulation 2 Moderate Order ONE of the following: *Sequential Compression Device (SCD) *Heparin 5000 units SQ BID 3-4 Higher Order ONE of the following medications: *Heparin 5000 units SQ TID *Enoxaparin/Lovenox 40 mg SQ daily (WT < 150 kg, CrCl > 30 mL/min) *Enoxaparin/Lovenox 30 mg SQ daily (WT < 150 kg, CrCl > 10-29 mL/min) *Enoxaparin/Lovenox 30 mg SQ BID (WT < 150 kg, CrCl > 30 mL/min) AND/OR *Sequential Compression Device (SCD) 5 or more Highest Order ONE of the following medications: *Heparin 5000 units SQ TID (Preferred with Epidurals) *Enoxaparin/Lovenox 40 mg SQ daily (WT < 150 kg, CrCl > 30 mL/min) *Enoxaparin/Lovenox 30 mg SQ daily (WT < 150 kg, CrCl > 10-29 mL/min) *Enoxaparin/Lovenox 30 mg SQ BID (WT < 150 kg, CrCl > 30 mL/min) AND *Sequential Compression Device (SCD) Assessment and Plan Assessment and Plan 61[facility] with history of subdural hematoma, seizure disorder, history of CVA, carotid stenosis, coronary artery disease, GERD, schizophrenia and hypertension brought to the ED for evaluation of altered mental status and fever. 1. Fevers/Leukocytosis/Elevated Lactic acid/AMS Leukocytosis with left shift and a lactic acid of 2.2 Patient remains febrile Chest x-ray, abdominal CT, UA negative for acute process Vancomycin/Zosyn Infectious disease consulted, appreciate recommendations 2. ERIC BUN/creatinine 49/1.51 (baseline 0.44) Likely component of dehydration and obstructive uropathy 3 L urine returned when Hinds catheter placed in the ED IV fluid hydration Follow BMP 3. Subdural hematoma Head CT showing subdural hematoma with 4 mm rightward midline shift Subdural component slightly larger without evidence of acute bleeding Neurosurgery consulted Continue Dilantin, Depakote, Vimpat and Keppra for seizure prophylaxis Antiseizure medication levels pending 4. Lung mass/Retroperitoneal mass CT of the abdomen/pelvis shows pleural-based mass in the left lung and questionable retroperitoneal mass concerning for neoplasm/malignancy Oncology consulted, appreciate recommendations 5. Seizure disorder Continue antiseizure medications as 6. DVT Patient poor candidate for pharmacologic anticoagulation IVC filter placed on 05/16 7. Hypertension Continue metoprolol, amlodipine and hydralazine FEN Regular diet NS at 100 cc/hr Electrolytes: monitor and replete prn SCDs Patient good candidate for hospice as prognosis is poor. Was evaluated during previous admission. Patient's half brother stated he wanted everything done for the patient until such time as there is nothing to be done. Physician Certification 2 Midnight Certification Type: Admission for Inpatient Services Order for Inpatient Services The services are ordered in accordance with Medicare regulations or non- Medicare payer requirements, as applicable. In the case of services not specified as inpatient-only, they are appropriately provided as inpatient services in accordance with the 2-midnight benchmark. Estimated LOS (days): 2 2 days is the estimated time the patient will need to remain in the hospital, assuming treatment plan goals are met and no additional complications. Post-Hospital Plan: Not yet determined Ysabel Beverly MD May 19, 2017 13:38
[2017-05-19] MEDS: SODIUM CHLOR 0.9% 1000 ML INJ 1,000 ML IV SCH ×2 (14:08→23:45)
[2017-05-19] MEDS: levETIRAcetam 500 MG TAB PO SCH ×2 (14:30→17:31)
[2017-05-19] MEDS ORDERED: PIPERACIL-TAZO 2.25 GM PREMIX 50 ML IV SCH (16:00)
--- NOTE | 2017-05-19 16:02 | MB ---
cc: JASON BEVERLY MD, RUBY ANNE E. M.D. DATE OF CONSULTATION: 05/19/2017. REASON FOR CONSULTATION / CHIEF COMPLAINT: Dr. Beverly requested a consultation for Ms. Hernandez regarding newly diagnosed pleural-based mass of the left lung associated with retroperitoneal mass. REFERRING PHYSICIAN: Dr. Beverly. HISTORY OF PRESENT ILLNESS: Ms. Hernandez is a 61-year-old woman well-known to Dr. Kadie Rainey for a recent consultation on 05/06/2017. She has a history of seizure disorder, schizophrenia, hypertension. She resides in a [facility] facility. Her course was complicated by a fall and intracranial hemorrhage. Post the fall, her thrombocytopenia has now resolved. IVC filter was placed since anticoagulant therapy could not be administered for extensive DVT throughout the right lower extremity. There is occlusive thrombus throughout the femoral, popliteal vein with nonocclusive thrombus in the trifurcation tributaries and central greater saphenous vein on the right. There are also nonocclusive superficial thromboses in both cephalic veins. She presented to the emergency room and was seen by Dr. Mahendra Marti with altered mental status and fever. The patient was having increasing confusion. In the emergency room, imaging studies were performed including a CT scan of the head that showed a subacute left temporoparietal frontal lobe subdural hematoma. The subdural component is slightly larger than before. The parenchymal hemorrhage has resolved. There is decreased interventricular blood. The moderate ventriculomegaly has not changed. Subacute blood seen in the sphenoid sinuses. CT scan of the abdomen showed a pleural-based mass in the left lung and a questionable retroperitoneal mass that involves the left ureteropelvic junction, which is concerning for malignancy. For this reason, hematology / oncology is consulted. No history could be obtained from the patient. She has her eyes opened. She tracks with her head. She does not move her arms or legs. She seems to be able to assist in moving the right arm. Review of the electronic medical record from previous consultation by palliative care shows that her healthcare surrogate fall on her siblings. At the time of her last discharge, she could not enter into hospice care since consent could not be obtained from her brother, Julio Walker, cell number listed as [phone]. Apparently he is homeless by some report. There is no answer to the above cell phone when called and it went to voicemail. She has a sister, Ania Ramos, . The patient is a long-term resident of [facility]. She does not retain the ability to participate in medical decision-making. She is deteriorating with acute mental status change and neurologic condition. PAST MEDICAL HISTORY: 1. Subdural hematoma. 2. Seizure disorder. 3. Schizoaffective disorder. 4. Urinary incontinence. 5. Anxiety. 6. Arthritis. 7. Bipolar disorder. 8. Hypertension. 9. History of CVA. 10. Gastroesophageal reflux. 11. Extensive right lower extremity deep venous thromboses. 12. Chronic anemia. 13. Acute renal insufficiency. 14. Liver function elevation. 15. Right lung pleural-based nodule. 16. Retroperitoneal mass. PAST SURGICAL HISTORY: 1. Tubal ligation. 2. Oral surgery. FAMILY HISTORY: Unable to obtain. SOCIAL HISTORY: She lives at a [facility] facility. No alcohol, tobacco or illicit drug use. ALLERGIES: 1. ARIPIPRAZOLE. CURRENT MEDICATIONS: 1. Vancomycin. 2. Norvasc. 3. Celexa. 4. Folate. 5. Spiriva. 6. Lipitor. 7. Depakote. 8. Vimpat. 9. Namenda. 10. Lopressor. 11. Dilantin. 12. Topamax. 13. Keppra. 14. Zofran PRN. 15. Narcan PRN. 16. Milk of magnesia PRN. 17. Senokot PRN. 18. Dulcolax PRN. 19. Lactulose PRN. PHYSICAL EXAMINATION: VITAL SIGNS: Temperature 99.1, heart rate 104, respiratory rate 24, blood pressure 128/75, saturation 95%. GENERAL: Mas. Hernandez is a cachectic chronically ill-appearing woman who looks older than her stated age. She looks in poor health with bitemporal wasting with bloodshot eyes. HEAD, EYES, EARS, NOSE, THROAT: Her pupils are reactive. Oropharynx is severely dry. NECK: The neck is supple. There is some bruising at the right neck base, presumably at the site of the IVC filter placement. LUNGS: Clear. CARDIOVASCULAR: Tachycardia. ABDOMEN: Benign. LOWER EXTREMITIES: Muscle wasting. Right leg more prominent than the left. There is hematoma in the dorsum of the right hand. There is senile purpura. Thin dry skin noted. No rash. ASSESSMENT AND PLAN: Ms. Hernandez is a 61-year-old woman with multiple medical problems and acute findings from last admission that keeps her from being able to make decisions about her care. She has seizure disorder, schizophrenia, hypertension. She has poor performance status. She is unable to get water and drink for herself. She is able to drink with assistance and a straw is brought to her lips. She is unable to make decisions for herself, nor can she understand the therapy being contemplated. The new CT scan findings are concerning for malignancy in the right lung with possible metastatic disease in the retroperitoneum. I recommend against biopsy diagnosis as her prognosis is quite poor. Even if a diagnosis is obtained, it is not likely that she would benefit from any palliative therapy given her poor performance status. She has the subdural hematoma that she is recovering from. Furthermore, she is unable to consent on the decision for continued treatment. It is noted the patient's brother, who is the healthcare surrogate, declining hospice care. It is not clear of the reasons. She is most appropriate with hospice care and palliative therapy. It would not be to her benefit to proceed with aggressive measures to try to obtain a diagnosis associated with the risks involved in it. She is well-known to my partner, Dr. Rainey, who will resume her care tomorrow. I recommend consultation with hospice to try again and proceed with initial plan on palliative treatment prior to the withdrawal of consent by the brother during the last admission. Brenda Noel MD RAD/JCC /3:26 PM /3:44 PM
[2017-05-19] MEDS: PIPERACIL-TAZO 3.375 GM PREMIX 50 ML IV SCH ×2 (16:03→21:52)
--- NOTE | 2017-05-19 16:33 | PD.CONS ---
[facility] Service Neurosurgery Consult Requested By Dr. Beverly Reason for Consult Subdural hematoma Primary Care Physician Unknown History of Present Illness The patient is a 61-year-old female previously consult on by the undersigned on 04/30/17 after she presented to the emergency room after a fall in the facility at which she resides. The patient has a history of schizoaffective disorder, resides in a long-term. Previous history of CVA. Also history of seizure disorder. She was noted to have a left frontotemporal contusion with acute subdural hematoma with approximately 7 mm midline shift. The family was initially available for decision making. Conservative treatment was continued. Follow-up CT scan imaging revealed gradual improvement in the parenchymal hemorrhage and some initial improvement in the subdural hematoma. Between May 06 and May 07 discussions with family her palliative care indicated that the patient's brother desired transfer back to the intermediate facility with transitioned to hospice care. Given the stable nature of the subdural hematoma and improving contusion, associated medical disorders including acute thrombocytopenia, and significant underlying cognitive disorder , as well as the reported decision of the family to avoid any invasive treatment or surgical intervention, no further neurosurgical intervention was planned as of 05/07/2017. Review of the patient's subsequent notes from her previous hospitalization indicates that she underwent IVC filter placement for DVT on 05/16/2017, prior to discharge. The patient returns back to the emergency room on 05/19/2017 due to altered mental status and fever. Reportedly increasing confusion. No seizure activity reported. Review of Systems Unable to obtain from the patient Past Family Social History Allergies: Coded Allergies: aripiprazole (Unverified Allergy, Unknown, 05/19/17) Past Medical History History of schizoaffective disorder, bipolar disorder, depression. Recent DVT status post IVC filter seizure disorder Hypertension Previous CVA Thrombocytopenia Past Surgical History IVC filter Tubal ligation Oral maxillofacial surgery Bilateral ear surgery Reported Medications Reported Meds & Active Scripts Active Vimpat (Lacosamide) 100 Mg Tab 200 Mg PO BID Norvasc (Amlodipine Besylate) 10 Mg Tab 10 Mg PO DAILY Hydralazine HCl 25 Mg Tablet 50 Mg PO Q8HR PRN Metoprolol Tartrate 25 Mg Tab 50 Mg PO BID Topamax (Topiramate) 100 Mg Tab 100 Mg PO BID Reported Namenda (Memantine) 10 Mg Tab 10 Mg PO BID Depakote DR (Divalproex Sodium) 250 Mg Tabdr 750 Mg PO Q12HR Folic Acid 0.4 Mg Tab 800 Mcg PO DAILY Dilantin (Phenytoin Extended) 100 Mg Cap 300 Mg PO Q12HR Colace (Docusate Sodium) 100 Mg Capsule 100 Mg PO DAILY Symbicort Inh (Budesonide/Formoterol Fumarate) 160-4.5 Mcg/Act Aero 2 Puff INH BID Ventolin Hfa 18 GM Inh (Albuterol Sulfate) 90 Mcg/Act Aer 2 Puff INH QID Spiriva Handihaler (Tiotropium Inh) 18 Mcg Cap 18 Mcg INH DAILY DO NOT SWALLOW CAPS Levetiracetam 1,000 Mg Tab 1,000 Mg PO TID Citalopram (Citalopram Hydrobromide) 40 Mg Tab 40 Mg PO DAILY Atorvastatin (Atorvastatin Calcium) 80 Mg Tab 80 Mg PO HS Family History Unobtainable from the patient Social History Resides at a long-term. No history of alcohol or cigarette use Physical Exam Vital Signs Vital Signs Date Time Temp Pulse Resp B/P (MAP) Pulse Ox O2 Delivery O2 Flow Rate FiO2 05/19/17 13:59 05/19/17 11:22 99.1 104 24 128/75 (92) 95 Nasal Cannula 2.00 05/19/17 10:57 99.1 107 159/79 (105) 98 Room Air 05/19/17 10:09 100.9 115 24 171/95 (120) 95 Nasal Cannula 3.00 05/19/17 10:07 100.9 05/19/17 09:53 119 24 163/106 (125) 97 Nasal Cannula 3.00 05/19/17 09:52 97 Nasal Cannula 3.00 05/19/17 09:52 97 Nasal Cannula 3.00 05/19/17 09:32 24 95 Nasal Cannula 3.00 05/19/17 09:32 123 25 163/106 (125) 95 Nasal Cannula 3.00 05/19/17 09:29 123 24 163/106 (125) 95 Physical Exam GENERAL: This is a well-nourished, well-developed patient, no apparent distress. SKIN: No abrasions, contusion, rash noted. Skin warm and dry. HEAD: Atraumatic. Normocephalic. No temporal or scalp tenderness. EYES: Sclerae are clear and nonicteric ENT: No facial edema or ecchymosis. No periorbital edema. No CSF otorrhea or rhinorrhea. No palpable facial fracture or deformity. NECK: Trachea midline. No cervical spine tenderness. CARDIOVASCULAR: Regular rate and rhythm without murmurs, gallops, or rubs. RESPIRATORY: Clear to auscultation. Breath sounds equal bilaterally. No wheezes , rales, or rhonchi. GASTROINTESTINAL: Abdomen soft, non-tender, nondistended. No hepato-splenomegaly , or palpable masses. No guarding. MUSCULOSKELETAL: Extremities without cyanosis, or edema. No joint tenderness, or edema noted. No calf tenderness. Dorsalis pedis pulses 2+ bilateral NEUROLOGICAL: Open size intermittently to voice Moderate conjugate extraocular movements. Pupils mid range reactive to light Does not follow commands. Nonverbal Does not answer questions Minimal withdrawal upper extremities greater than lower extremities to deep pain. Hoffmans response absent bilateral No ankle clonus Laboratory Laboratory Tests Test 05/19/17 09:40 05/19/17 09:50 05/19/17 12:44 05/19/17 13:50 White Blood Count 16.2 Red Blood Count 3.76 Hemoglobin 11.5 Hematocrit 35.7 Mean Corpuscular Volume 94.8 Mean Corpuscular Hemoglobin 30.5 Mean Corpuscular Hemoglobin Concent 32.2 Red Cell Distribution Width 15.6 Platelet Count 484 Mean Platelet Volume 7.5 Neutrophils (%) (Auto) 73.9 Lymphocytes (%) (Auto) 8.4 Monocytes (%) (Auto) 15.3 Eosinophils (%) (Auto) 1.8 Basophils (%) (Auto) 0.6 Neutrophils # (Auto) 11.9 Lymphocytes # (Auto) 1.4 Monocytes # (Auto) 2.5 Eosinophils # (Auto) 0.3 Basophils # (Auto) 0.1 CBC Comment AUTO DIFF Differential Total Cells Counted 100 Neutrophils % (Manual) 66 Band Neutrophils % 11 Lymphocytes % 9 Monocytes % 8 Eosinophils % 2 Neutrophils # (Manual) 13.1 Metamyelocytes 3 Myelocytes 1 Differential Comment FINAL DIFF MANUAL Platelet Estimate HIGH Platelet Morphology Comment NORMAL Prothrombin Time 13.0 Prothromb Time International Ratio 1.2 Activated Partial Thromboplast Time 29.4 Blood Urea Nitrogen 49 Creatinine 1.51 Random Glucose 131 Total Protein 7.6 Albumin 2.1 Calcium Level 8.3 Alkaline Phosphatase 192 Aspartate Amino Transf (AST/SGOT) 383 Alanine Aminotransferase (ALT/SGPT) 190 Total Bilirubin 0.6 Sodium Level 147 Potassium Level 4.1 Chloride Level 114 Carbon Dioxide Level 21.6 Anion Gap 11 Estimat Glomerular Filtration Rate 35 Lactic Acid Level 2.2 1.3 Total Creatine Kinase 87 Troponin I LESS THAN 0.02 B-Type Natriuretic Peptide 43 Thyroid Stimulating Hormone 3rd Gen 3.080 Urine Color DARK-YELLOW Urine Turbidity CLEAR Urine pH 6.0 Urine Specific Gilchrist 1.018 Urine Protein TRACE Urine Glucose (UA) TRACE Urine Ketones NEG Urine Occult Blood NEG Urine Nitrite NEG Urine Bilirubin NEG Urine Urobilinogen 2.0 Urine Leukocyte Esterase NEG Urine RBC 0-3 Urine Bacteria FEW Microscopic Urinalysis Comment CULT NOT INDICATED Phenytoin (Dilantin) Level 3.4 Valproic Acid (Depakene) Level 42 Date/Time Source Procedure Growth Status 05/19/17 09:45 Blood Peripheral Aerobic Blood Culture Pending Received 05/19/17 09:45 Blood Peripheral Anaerobic Blood Culture Pending Received Result Diagram: 05/19/17 0940 05/19/17 0940 Imaging 05/19/2017 CT scan head images reviewed by the undersigned and compared to previous CT. There is persistent resolution of the left frontotemporal parenchymal contusion with mild edema. There is a moderate now subacute to chronic left frontotemporal subdural hematoma with mostly mild local mass effect. There is approximately 4 mm left- to-right midline shift. No hydrocephalus. Abdomen/Pelvis CT 05/19/17 1114 Signed Impressions: Service Date/Time: Friday, May 19, 2017 11:13 - CONCLUSION: 1. There is a pleural-based mass of the left lung base and a questionable retroperitoneal mass that involves the left ureteropelvic junction region of concern for neoplasm/malignancy. 2. Constipation. No obstruction or acute inflammatory changes seen in the gastrointestinal tract. 3. Body wall edema/anasarca. 4. Chronic pancreatitis. No evidence of acute pancreatitis. 5. Small fat containing left inguinal hernia. Ernesto Parham MD Head CT 05/19/17 0933 Signed Impressions: Service Date/Time: Friday, May 19, 2017 11:08 - CONCLUSION: 1. Subacute left temporal, parietal and frontal lobe subdural hematoma and a fairly broad area of left temporal lobe cerebral edema and developing encephalomalacia with approximately 4 mm of rightward midline shift. The subdural component is slightly larger than before but I don't see any acute blood products or other evidence of recent or active bleeding. The previously seen parenchymal hemorrhage of the left temporal lobe has almost completely resolved. 2. Decreasing intraventricular blood, now trace. Moderate ventriculomegaly not significantly changed. 3. Subacute appearing blood seen in the sphenoid sinuses and would be of concern for a nondisplaced skull base fracture. Ernesto Parham MD Chest X-Ray 05/19/17 0933 Signed Impressions: Service Date/Time: Friday, May 19, 2017 09:39 - CONCLUSION: No evidence of acute cardiopulmonary disease. Ernesto Parham MD Assessment and Plan Assessment and Plan Impression: 1. Subacute to chronic residual left frontotemporal subdural hematoma was relatively mild local mass effect. Resolving left frontal parenchymal contusion. 2. Schizoaffective-bipolar disorder. 3. Recent DVT. Status post IVC filter placement. 4. Persistent fever with leukocytosis. No definite infectious source noted on recent admission. 5. CT scan of the abdomen and pelvis on 05/19/17 with possible neoplastic disease in the right long and retroperitoneum. Patient seen by oncology with recommendations for conservative treatment, hospice care. Recommendations: No family is available for discussion of the findings are present. It is not felt that the relatively small residual left frontotemporal subdural hematoma requires surgical intervention at this point. She may have some persistent speech deficit and cognitive dysfunction related to the left frontotemporal probable contusion although this seems to be improving normally with conservative treatment and observation. We will try to contact the patient's family progressive further decision making. It appears that during her recent prior hospitalization a decision was initially made to again hospice care, however the patient's brother apparently did not sign the papers necessary to proceed with this. A subsequent note prior to IVC filter placement indicates that he will desired to continue with all reasonable treatment options. Josue Sahu MD May 19, 2017 16:33
[2017-05-19] MEDS ORDERED: LORazepam 2 MG/ML VIAL IV PUSH PRN (20:30)
[2017-05-19] MEDS: MEMANTINE HCL 10 MG TAB PO SCH (21:00)
[2017-05-19] MEDS: LACOSAMIDE 100 MG TAB PO SCH (21:00)
[2017-05-19] MEDS: DOCUSATE SODIUM 50 MG/SENNA 8.6 MG TAB PO SCH (21:00)
[2017-05-19] MEDS: METOPROLOL TARTRATE 50 MG TAB PO SCH (21:00)
[2017-05-19] MEDS: ATORVASTATIN 80 MG TAB PO SCH (21:00)
[2017-05-19] MEDS: PHENYTOIN SODIUM 100 MG CAP PO SCH (21:00)
[2017-05-19] MEDS: DIVALPROEX SODIUM DELAYED RELEASE 250 MG TAB PO SCH (21:00)
[2017-05-19] MEDS: TOPIRAMATE 100 MG TAB PO SCH (21:00)
[2017-05-19] MEDS: SODIUM CHLORIDE 0.9% FLUSH 10 ML FLUSH IV FLUSH SCH (21:07)
[2017-05-19] MEDS ORDERED: levETIRAcetam 1000 MG INJ 100 ML IV SCH (22:30)
[2017-05-19] MEDS: levETIRAcetam INJ 750 MG in SODIUM CHLORIDE 0.9% INJ 100 ML IV SCH (23:45)
[2017-05-20 00:34] VITALS: BP 110/57; PULSE 88; RESP 16; TEMP 96.9; O2SAT 94
[2017-05-20] MEDS: PIPERACIL-TAZO 3.375 GM PREMIX 50 ML IV SCH ×4 (05:08→20:34)
[2017-05-20 08:00] VITALS: BP 111/56; PULSE 81; RESP 19; TEMP 99.6; O2SAT 95
[2017-05-20] MEDS ORDERED: FOLIC ACID 1 MG TAB PO SCH (09:00)
[2017-05-20] MEDS: DIVALPROEX SODIUM DELAYED RELEASE 250 MG TAB PO SCH ×2 (09:00→20:18)
[2017-05-20] MEDS: METOPROLOL TARTRATE 50 MG TAB PO SCH ×2 (09:00→20:36)
[2017-05-20] MEDS ORDERED: TIOTROPIUM BROMIDE 18 MCG INH INH SCH (09:00)
[2017-05-20] MEDS ORDERED: CITALOPRAM HYDROBROMIDE 40 MG TAB PO SCH (09:00)
[2017-05-20] MEDS: LACOSAMIDE 100 MG TAB PO SCH ×2 (09:00→20:20)
[2017-05-20] MEDS: levETIRAcetam INJ 750 MG in SODIUM CHLORIDE 0.9% INJ 100 ML IV SCH (10:21)
[2017-05-20] MEDS: PHENYTOIN SODIUM 100 MG CAP PO SCH ×2 (10:24→20:34)
[2017-05-20] MEDS: DOCUSATE SODIUM 50 MG/SENNA 8.6 MG TAB PO SCH ×2 (10:24→20:34)
[2017-05-20] MEDS: MEMANTINE HCL 10 MG TAB PO SCH ×2 (10:25→20:20)
[2017-05-20] MEDS: TOPIRAMATE 100 MG TAB PO SCH ×2 (10:25→20:20)
[2017-05-20] MEDS: SODIUM CHLOR 0.9% 1000 ML INJ 1,000 ML IV SCH (10:26)
[2017-05-20] MEDS: SODIUM CHLORIDE 0.9% FLUSH 10 ML FLUSH IV FLUSH SCH ×2 (10:26→20:18)
--- NOTE | 2017-05-20 10:48 | PD.PN.STU ---
Subjective Remarks Patient is a 61-year old female with a recent history of subdural hematoma who was admitted from SNF due to altered mental status and fever. When examined, patient is hypoverbal and is not able to provide any history. Patient also has a history of CVA, seizure disorder, schizophrenia. Dicharged on 05/16/17 after tx for subdural hematoma. Head CT findings upon this admission show subacute 4mm subdural hematoma without acute bleeding. Abd CT showed pleural-based left lung mass suspicious for malignancy with possible left retroperitoneal mass at uteropelvic junction. CXR and UA unremarkable. Family/surrogate not present to discuss care. Objective Vitals Vital Signs Date Time Temp Pulse Resp B/P (MAP) Pulse Ox O2 Delivery O2 Flow Rate FiO2 05/20/17 08:00 99.6 81 19 111/56 (74) 95 05/20/17 00:34 96.9 88 16 110/57 (74) 94 05/19/17 20:52 96.6 84 16 118/64 (82) 96 05/19/17 13:59 05/19/17 11:22 99.1 104 24 128/75 (92) 95 Nasal Cannula 2.00 05/19/17 10:57 99.1 107 159/79 (105) 98 Room Air 05/19/17 10:09 100.9 115 24 171/95 (120) 95 Nasal Cannula 3.00 05/19/17 10:07 100.9 I/O 05/19/17 05/19/17 05/19/17 05/20/17 05/20/17 05/20/17 07:00 15:00 23:00 07:00 15:00 23:00 Intake Total 1300 ml 50 ml 1558.5 ml 0 ml Output Total 2700 ml 500 ml 700 ml Balance -1400 ml -450 ml 858.5 ml 0 ml Intake Oral 0 ml 0 ml IV Total 1300 ml 50 ml 1558.5 ml Output Urine Total 2700 ml 500 ml 700 ml # Voids 0 # Bowel Movements 1 2 Result Diagram: 05/19/1740 05/19/17 0940 Other Results Laboratory Tests Test 05/19/17 09:40 05/19/17 09:50 05/19/17 12:44 05/19/17 13:50 White Blood Count 16.2 TH/MM3 Red Blood Count 3.76 MIL/MM3 Hemoglobin 11.5 GM/DL Hematocrit 35.7 % Mean Corpuscular Volume 94.8 FL Mean Corpuscular Hemoglobin 30.5 PG Mean Corpuscular Hemoglobin Concent 32.2 % Red Cell Distribution Width 15.6 % Platelet Count 484 TH/MM3 Mean Platelet Volume 7.5 FL Neutrophils (%) (Auto) 73.9 % Lymphocytes (%) (Auto) 8.4 % Monocytes (%) (Auto) 15.3 % Eosinophils (%) (Auto) 1.8 % Basophils (%) (Auto) 0.6 % Neutrophils # (Auto) 11.9 TH/MM3 Lymphocytes # (Auto) 1.4 TH/MM3 Monocytes # (Auto) 2.5 TH/MM3 Eosinophils # (Auto) 0.3 TH/MM3 Basophils # (Auto) 0.1 TH/MM3 CBC Comment AUTO DIFF Differential Total Cells Counted 100 Neutrophils % (Manual) 66 % Band Neutrophils % 11 % Lymphocytes % 9 % Monocytes % 8 % Eosinophils % 2 % Neutrophils # (Manual) 13.1 TH/MM3 Metamyelocytes 3 % Myelocytes 1 % Differential Comment FINAL DIFF MANUAL Platelet Estimate HIGH Platelet Morphology Comment NORMAL Prothrombin Time 13.0 SEC Prothromb Time International Ratio 1.2 RATIO Activated Partial Thromboplast Time 29.4 SEC Blood Urea Nitrogen 49 MG/DL Creatinine 1.51 MG/DL Random Glucose 131 MG/DL Total Protein 7.6 GM/DL Albumin 2.1 GM/DL Calcium Level 8.3 MG/DL Alkaline Phosphatase 192 U/L Aspartate Amino Transf (AST/SGOT) 383 U/L Alanine Aminotransferase (ALT/SGPT) 190 U/L Total Bilirubin 0.6 MG/DL Sodium Level 147 MEQ/L Potassium Level 4.1 MEQ/L Chloride Level 114 MEQ/L Carbon Dioxide Level 21.6 MEQ/L Anion Gap 11 MEQ/L Estimat Glomerular Filtration Rate 35 ML/MIN Total Creatine Kinase 87 U/L Troponin I LESS THAN 0.02 NG/ML B-Type Natriuretic Peptide 43 PG/ML Thyroid Stimulating Hormone 3rd Gen 3.080 uIU/ML Urine Color DARK-YELLOW Urine Turbidity CLEAR Urine pH 6.0 Urine Specific Perry 1.018 Urine Protein TRACE mg/dL Urine Glucose (UA) TRACE mg/dL Urine Ketones NEG mg/dL Urine Occult Blood NEG Urine Nitrite NEG Urine Bilirubin NEG Urine Urobilinogen 2.0 MG/DL Urine Leukocyte Esterase NEG Urine RBC 0-3 /hpf Urine Bacteria FEW /hpf Microscopic Urinalysis Comment CULT NOT INDICATED Lactic Acid Level 1.3 mmol/L Phenytoin (Dilantin) Level 3.4 MCG/ML Valproic Acid (Depakene) Level 42 MCG/ML Objective Remarks GENERAL: Patient supine in bed. Speaks name but not responsive to further questioning. Appears older than stated age. SKIN: Warm and dry. HEAD: Normocephalic. EYES: No scleral icterus. No injection or drainage. NECK: Supple, trachea midline. No JVD or lymphadenopathy. CARDIOVASCULAR: Regular rate and rhythm without gallops, or rubs. 2/6 systolic murmur loudest at R sternal border. RESPIRATORY: Breath sounds equal bilaterally. No accessory muscle use. On O2 nasal canula. GASTROINTESTINAL: Abdomen soft and nondistended. Diffuse tenderness to palpation. MUSCULOSKELETAL: No cyanosis. 1+ edema in lower extremities bilaterally. NEURO: Alert and oriented only to person. Opens eyes to voice. Attempts to follow commands to squeeze hand. Weakness in director skills in R hand. Does not move left UE or LEs bilaterally upon request. Medications and IVs Current Medications Sodium Chloride 1,000 ml @ 999 mls/hr BOLUS ONCE IV Last administered on 10:04; Start 05/19/17 at 09:45; Stop 05/19/17 at 10:45; Status DC Vancomycin HCl 1000 mg/Sodium Chloride 250 ml @ 250 mls/hr ONCE ONCE IV Last administered on 05/19/17 10:46; Start 05/19/17 at 09:45; Stop 05/19/17 at 10 :44; Status DC Piperacillin Sod/ Tazobactam Sod 50 ml @ 100 mls/hr ONCE ONCE IV Last administered on 05/19/17 10:05; Start 05/19/17 at 09:45; Stop 05/19/17 at 10 :14; Status DC Amlodipine Besylate (Norvasc) 10 mg DAILY PO ; Start 05/20/17 at 09:00 Atorvastatin Calcium (Lipitor) 80 mg HS PO ; Start 05/19/17 at 21:00 Citalopram Hydrobromide (CeleXA) 40 mg DAILY PO ; Start 05/20/17 at 09:00 Divalproex Sodium (Depakote Dr) 750 mg Q12HR PO ; Start 05/19/17 at 21:00 Folic Acid (Folate) 1 mg DAILY PO ; Start 05/20/17 at 09:00 Hydralazine HCl (Apresoline) 50 mg Q8HR PRN PO SYS BP GREATER THAN 160 MMHG; Start 05/19/17 at 13:30 Lacosamide (Vimpat) 200 mg BID PO ; Start 05/19/17 at 21:00 Levetriacetam (Keppra) 1,000 mg TID PO Last administered on 05/19/17 14:30; Start 05/19/17 at 14:00; Status Future Hold Memantine (Namenda) 10 mg BID PO ; Start 05/19/17 at 21:00 Metoprolol Tartrate (Lopressor) 50 mg BID PO ; Start 05/19/17 at 21:00 Phenytoin (Dilantin) 300 mg Q12HR PO ; Start 05/19/17 at 21:00 Tiotropium [place] (Spiriva Inh) 18 mcg DAILY INH ; Start 05/20/17 at 09:00 Topiramate (Topamax) 100 mg BID PO ; Start 05/19/17 at 21:00 Sodium Chloride 1,000 ml @ 100 mls/hr Q10H IV Last administered on 05/19/17 23:45; Start 05/19/17 at 13:00 Sodium Chloride (NS Flush) 2 ml UNSCH PRN IV FLUSH FLUSH AFTER USING IV ACCESS ; Start 05/19/17 at 13:15 Sodium Chloride (NS Flush) 2 ml BID IV FLUSH Last administered on 05/19/17 21 :07; Start 05/19/17 at 21:00 Acetaminophen (Tylenol) 650 mg Q4H PRN PO TEMP > 100.4; Start 05/19/17 at 13: 15 Ondansetron HCl (Zofran Inj) 4 mg Q6H PRN IVP NAUSEA OR VOMITING; Start at 13:15 Naloxone HCl (Narcan Inj) 0.4 mg UNSCH PRN IV PUSH SEE LABEL COMMENTS; Start 05/19/17 at 13:15 Senna/Docusate Sodium (Radha-Colace) 1 tab BID PO ; Start 05/19/17 at 21:00 Magnesium Hydroxide (Milk Of Magnesia Liq) 30 ml Q12H PRN PO Mild constipation ; Start 05/19/17 at 13:15 Sennosides (Senokot) 17.2 mg Q12H PRN PO Moderate constipation; Start at 13:15 Bisacodyl (Dulcolax Supp) 10 mg DAILY PRN RECTAL SEVERE CONSITIPATION; Start 05/19/17 at 13:15 Lactulose (Lactulose Liq) 30 ml DAILY PRN PO SEVERE CONSITIPATION; Start 05/19 at 13:15 Piperacillin Sod/ Tazobactam Sod 50 ml @ 100 mls/hr Q6H IV Last administered on 05/20/17t 05:08; Start 05/19/17 at 16:00 Pharmacy Profile Note 0 ml @ 0 mls/hr UNSCH OTHER ; Start 05/19/17 at 13:15 Vancomycin HCl 1250 mg/Sodium Chloride 262.5 ml @ 250 mls/hr Q24H IV ; Start 05/20/17 at 11:00 Piperacillin Sod/ Tazobactam Sod 50 ml @ 100 mls/hr Q6H IV ; Start 05/19/17 at 16:00; Status Cancel Miscellaneous Information SPECIFIC LAB TO BE KWAME... ONCE ONCE .XX ; Start at 10:45; Stop 05/22/17 at 10:46 Levetriacetam 100 ml @ 400 mls/hr Q12HR IV ; Start 05/19/17 at 22:30; Status UNV Lorazepam (Ativan Inj) 2 mg Q10M PRN IV PUSH SEE LABEL COMMENTS; Start at 20:30 Levetriacetam 750 mg/Sodium Chloride 107.5 ml @ 430 mls/hr Q12H IV Last administered on 05/19/17t 23:45; Start 05/19/17 at 23:00 A/P Assessment and Plan Fever/leukocytosis/lactic acidosis: -no acute findings on CXR, abdominal CT, or UA -Continue empiric Abx pending blood cultures -monitor CBC and lactic acid -follow with ID Subdural hematoma -likely subacute to chronic process on imaging -follow with neurosurgery ERIC -UA unremarkable -obstruction by retroperitoneal mass possibly contributing-follow with oncology -continue IV hydration -monitor BMP Pleural lung mass and possible retroperitoneal mass on CT -follow with oncology -plan to discuss hospice referral with healthcare surrogate History of seizure disorder and schizophrenia -continue current meds HTN -continue current meds Carlos Mclaughlin M3 May 20, 2017 10:48
[2017-05-20] MEDS ORDERED: VANCOMYCIN INJ 1,250 MG in SODIUM CHLOR 0.9% 250 ML INJ 250 ML IV SCH (11:00)
--- NOTE | 2017-05-20 11:10 | PD.ONC.PN ---
Subjective Subjective Remarks Afebrile overnight. Patient resting in bed. NO family members at bedside. No overnight events per nurse. Objective Data Date Time Temp Pulse Resp B/P (MAP) Pulse Ox O2 Delivery O2 Flow Rate FiO2 05/20/17 08:00 99.6 81 19 111/56 (74) 95 05/20/17 00:34 96.9 88 16 110/57 (74) 94 05/19/17 20:52 96.6 84 16 118/64 (82) 96 05/19/17 13:59 05/19/17 11:22 99.1 104 24 128/75 (92) 95 Nasal Cannula 2.00 05/20/17 05/20/17 05/20/17 07:00 15:00 23:00 Intake Total 1558.5 ml 50 ml Output Total 700 ml Balance 858.5 ml 50 ml Result Diagram: 05/19/1740 05/19/17 0940 Laboratory Results Laboratory Tests Test 05/19/17 12:44 05/19/17 13:50 Lactic Acid Level 1.3 mmol/L Phenytoin (Dilantin) Level 3.4 MCG/ML Valproic Acid (Depakene) Level 42 MCG/ML Culture Results Microbiology Date/Time Source Procedure Growth Status 05/19/17 09:45 Blood Peripheral Aerobic Blood Culture Pending Received 05/19/17 09:45 Blood Peripheral Anaerobic Blood Culture Pending Received 05/19/17 09:40 Blood Peripheral Aerobic Blood Culture Pending Received 05/19/17 09:40 Blood Peripheral Anaerobic Blood Culture Pending Received Imaging Studies Last 24 hours Impressions Abdomen/Pelvis CT 05/19/17 1114 Signed Impressions: Service Date/Time: Friday, May 19, 2017 11:13 - CONCLUSION: 1. There is a pleural-based mass of the left lung base and a questionable retroperitoneal mass that involves the left ureteropelvic junction region of concern for neoplasm/malignancy. 2. Constipation. No obstruction or acute inflammatory changes seen in the gastrointestinal tract. 3. Body wall edema/anasarca. 4. Chronic pancreatitis. No evidence of acute pancreatitis. 5. Small fat containing left inguinal hernia. Ernesto Parham MD Administered Medications Medications (Trade) Dose Ordered Sig/Elizabet Route PRN Reason Start Time Stop Time Status Last Admin Dose Admin Citalopram Hydrobromide (CeleXA) 40 mg DAILY PO 05/20/17 09:00 05/20/17 10:24 Folic Acid (Folate) 1 mg DAILY PO 05/20/17 09:00 05/20/17 10:24 Levetriacetam (Keppra) 1,000 mg TID PO 05/19/17 14:00 Future Hold 05/19/17 14:30 Memantine (Namenda) 10 mg BID PO 05/19/17 21:00 05/20/17 10:25 Phenytoin (Dilantin) 300 mg Q12HR PO 05/19/17 21:00 05/20/17 10:24 Tiotropium [place] (Spiriva Inh) 18 mcg DAILY INH 05/20/17 09:00 05/20/17 10:38 Topiramate (Topamax) 100 mg BID PO 05/19/17 21:00 05/20/17 10:25 Sodium Chloride 1,000 ml @ 100 mls/hr Q10H IV 05/19/17 13:00 05/20/17 10:26 Sodium Chloride (NS Flush) 2 ml BID IV FLUSH 05/19/17 21:00 05/20/17 10:26 Senna/Docusate Sodium (Radha-Colace) 1 tab BID PO 05/19/17 21:00 05/20/17 10:24 Piperacillin Sod/ Tazobactam Sod 50 ml @ 100 mls/hr Q6H IV 05/19/17 16:00 05/20/17 10:20 Vancomycin HCl 1250 mg/Sodium Chloride 262.5 ml @ 250 mls/hr Q24H IV 05/20/17 11:00 05/20/17 10:21 Levetriacetam 750 mg/Sodium Chloride 107.5 ml @ 430 mls/hr Q12H IV 05/19/17 23:00 05/20/17 10:21 Objective Remarks GENERAL: chronically ill appearing female lying in bed. SKIN: Warm and dry. HEAD: Normocephalic. EYES: No injection or drainage. NECK: Supple, trachea midline. CARDIOVASCULAR: Regular rate and rhythm RESPIRATORY: anterior kuo with occasional rhonchi. On 2L O2 via NC GASTROINTESTINAL: Abdomen soft, non-tender, nondistended. EXTREMITIES: No cyanosis NEUROLOGICAL: awake and alert Assessment/Plan Problem List: (1) DVT (deep venous thrombosis) ICD Codes: I82.409 - Acute embolism and thrombosis of unspecified deep veins of unspecified lower extremity Plan: --has IVC filter --extensive DVT throughout the right lower extremity. There is occlusive thrombus throughout the femoral, popliteal vein with nonocclusive thrombus in the trifurcation tributaries and central greater saphenous vein on the right. There are also nonocclusive superficial thromboses in both cephalic veins. (2) Lung mass ICD Codes: R91.8 - Other nonspecific abnormal finding of lung field Plan: 05/20: recommend palliative care consult and hospice placement. --At the time of her last discharge, she could not enter into hospice care since consent could not be obtained from her brother, Julio Walker, ([phone]) Apparently he is homeless by some report. --sister, Ania Ramos, reportedly does not want to be healthcare surrogate. --recommend against biopsy diagnosis as her prognosis is quite poor. Assessment 61y/o female with newly diagnosed pleural-based mass of the left lung associated with retroperitoneal mass. Admitted with AMS and fever. CT brain in ED showed subacute left temporoparietal frontal lobe subdural hematoma, slightly larger than previously. history of seizure disorder, schizophrenia, hypertension. h/o recent fall and ICH, h/o DVT h/o IVC filter placement. Attending Statement The exam, history, and the medical decision-making described in the above note were completed with the assistance of the mid-level provider. I reviewed and agree with the findings presented. I attest that I had a [id number] encounter with the patient on the same day, and personally performed and documented my assessment and findings in the medical record. Pt is aphasic , awake and alert D/W her that she has lung mass mostlikely cancer and it has spread to R/P area. Due to poor PF ( completelty bed ridden) i do not recommend bx or any chemo. Strongly recommend hospice. D/W pt RN. Ok to d/c to hospice. Kierra Wheeler May 20, 2017 11:10 Eusebia Rainey MD May 21, 2017 09:07
[2017-05-20 11:40] VITALS: BP 112/55; PULSE 88; RESP 19; TEMP 100.3; O2SAT 95
[2017-05-20 11:48] LABS: AUTOMATED NEUTROPHIL # 5.3 TH/MM3 (1.8-7.7); BASOPHIL # 0.1 TH/MM3 (0-0.2); BASOPHIL % 0.8 % (0.0-2.0); EOSINOPHIL # 0.2 TH/MM3 (0-0.4); EOSINOPHIL % 3.3 % (0.0-4.0); HEMATOCRIT 26.5 % (35.0-46.0); HEMO FLAGS DIFF FINAL; LYMPH % 10.7 % (9.0-44.0); LYMPHOCYTE # 0.8 TH/MM3 (1.0-4.8); MEAN CELL VOLUME 95.4 FL (80.0-100.0); MEAN CORPUSCULAR HGB CONC 32.4 % (32.0-36.0); MONO % 13.5 % (0.0-8.0); NEUT % 71.7 % (16.0-70.0); PLATELET COUNT 275 TH/MM3 (150-450); RED BLOOD COUNT 2.78 MIL/MM3 (4.00-5.30); RED CELL DISTRIBUTION WIDTH 15.6 % (11.6-17.2); WHITE BLOOD COUNT 7.4 TH/MM3 (4.0-11.0)
--- NOTE | 2017-05-20 13:56 | HHI.HCPN ---
Palliative care consulted to assist with identifying health care proxy decision maker and GOC for Ms. Hernandez. Spoke with hospice admissions specialist, hospice is already working with patient's biological sister and has sent her consents for hospice admission. Sister appears to be in agreement with transitioning to comfort oriented care with hospice services. Per last admission, health care proxy decision maker would fall to the majority of adult siblings of which Ms. Hernandez has 1 brother and 1 sister. Since brother has opted out, HCP is now patient's sister. Palliative care will remain available if needed. Hospice admission pending. Emy Cole MANUFACTURING SOFTWARE ENGINEER, [employer] May 20, 2017 13:56
--- NOTE | 2017-05-20 14:02 | HHI.PR ---
Subjective Remarks Patient is hypo verbal and does not follow commands. Seems to be in discomfort with any movements. Patient sister/decision maker elected Hospice. Awaiting for paperwork to be signed Objective Vitals Vital Signs Date Time Temp Pulse Resp B/P (MAP) Pulse Ox O2 Delivery O2 Flow Rate FiO2 05/20/17 11:40 100.3 88 19 112/55 (74) 95 05/20/17 08:00 99.6 81 19 111/56 (74) 95 05/20/17 00:34 96.9 88 16 110/57 (74) 94 05/19/17 20:52 96.6 84 16 118/64 (82) 96 I/O 05/19/17 05/19/17 05/19/17 05/20/17 05/20/17 05/20/17 07:00 15:00 23:00 07:00 15:00 23:00 Intake Total 1300 ml 50 ml 1558.5 ml 150 ml Output Total 2700 ml 500 ml 700 ml Balance -1400 ml -450 ml 858.5 ml 150 ml Intake Oral 0 ml 0 ml IV Total 1300 ml 50 ml 1558.5 ml 150 ml Output Urine Total 2700 ml 500 ml 700 ml # Voids 0 # Bowel Movements 1 2 Result Diagram: 05/20/17 1125 05/19/17 0940 Imaging Last Impressions Abdomen/Pelvis CT 05/19/17 1114 Signed Impressions: Service Date/Time: Friday, May 19, 2017 11:13 - CONCLUSION: 1. There is a pleural-based mass of the left lung base and a questionable retroperitoneal mass that involves the left ureteropelvic junction region of concern for neoplasm/malignancy. 2. Constipation. No obstruction or acute inflammatory changes seen in the gastrointestinal tract. 3. Body wall edema/anasarca. 4. Chronic pancreatitis. No evidence of acute pancreatitis. 5. Small fat containing left inguinal hernia. Ernesto Parham MD Head CT 05/19/17 0933 Signed Impressions: Service Date/Time: Friday, May 19, 2017 11:08 - CONCLUSION: 1. Subacute left temporal, parietal and frontal lobe subdural hematoma and a fairly broad area of left temporal lobe cerebral edema and developing encephalomalacia with approximately 4 mm of rightward midline shift. The subdural component is slightly larger than before but I don't see any acute blood products or other evidence of recent or active bleeding. The previously seen parenchymal hemorrhage of the left temporal lobe has almost completely resolved. 2. Decreasing intraventricular blood, now trace. Moderate ventriculomegaly not significantly changed. 3. Subacute appearing blood seen in the sphenoid sinuses and would be of concern for a nondisplaced skull base fracture. Ernesto Parham MD Chest X-Ray 05/19/17 0933 Signed Impressions: Service Date/Time: Friday, May 19, 2017 09:39 - CONCLUSION: No evidence of acute cardiopulmonary disease. Ernesto Parham MD Objective Remarks GENERAL: Elderly and frail female. Does not consistently follow commands. Occasionally mumble some words. Appear to be in discomfort when I attempted to move her extremities. CARDIOVASCULAR: Normal rate and regular rhythm. RESPIRATORY: Slight tachypnea. Breath sounds equal and clear to auscultation bilaterally. GASTROINTESTINAL: Abdomen soft, some grimacing with palpation. Normal active bowel sounds. MUSCULOSKELETAL: 2+ bilateral lower extremity edema. Some strength on the right hand but ARDEN and LE 1/5 NEURO: Awake but noninteractive. Mumble some words. Appeared to be in discomfort with movements. PSYCH: Calm. A/P Assessment and Plan 61[facility] with history of subdural hematoma, seizure disorder, history of CVA, carotid stenosis, coronary artery disease, GERD, schizophrenia and hypertension brought to the ED for evaluation of altered mental status and fever. The patient previously had poor functional status. She presented again with subacute subdural hematoma that is slightly larger but no acute bleeding identified. Abdominal imaging also revealed pleural-based mass in the left lung and questionable retroperitoneal mass concerning for neoplasm/malignancy. Neurosurgery and oncology evaluated the patient. No surgical intervention currently per neurosurgery. Given the patient's poor functional status and current comorbidities, oncology recommended against biopsy. Agree with recommendation for hospice. This was previously discussed in the previous admission. Patient does not have capacity to make medical decisions. Discussed with hospice nurse, patient's sister agreeable to hospice. Awaiting for her to sign the paperwork to transition the patient to comfort care only. Fevers/Leukocytosis/Elevated Lactic acid/AMS Leukocytosis with left shift and a lactic acid of 2.2 Patient remains this morning. Chest x-ray, abdominal CT, UA negative for acute process On empiric antibiotics with vancomycin and Zosyn. No infectious focus found so far. Continue to monitor blood cultures. ERIC BUN/creatinine 49/1.51 (baseline 0.44) Likely component of dehydration and obstructive uropathy 3 L urine returned when Hinds catheter placed in the ED Continue IV fluid hydration Follow BMP Subdural hematoma Head CT showing subdural hematoma with 4 mm rightward midline shift Subdural component slightly larger without evidence of acute bleeding Neurosurgery consulted and advised conservative management Continue Dilantin, Depakote, Vimpat and Keppra for seizure prophylaxis Lung mass/Retroperitoneal mass CT of the abdomen/pelvis shows pleural-based mass Oncology consulted and recommended against biopsy. Recommends Hospice. Seizure disorder Continue antiseizure medications as DVT Patient poor candidate for pharmacologic anticoagulation IVC filter placed on 05/16 Hypertension Continue metoprolol, amlodipine and hydralazine Discharge Planning Plan to discharge to hospice once arrangements are made. Probably to the hospice care center. Eleonora Blair MD May 20, 2017 14:02
[2017-05-20 14:46] LABS: ALKALINE PHOSPHATASE 127 U/L (45-117); ALT (GPT) 126 U/L (10-53); ANION GAP 10 MEQ/L (5-15); AST (GOT) 263 U/L (15-37); BICARBONATE 23.9 MEQ/L (21.0-32.0); BLOOD UREA NITROGEN 26 MG/DL (7-18); CHLORIDE 122 MEQ/L (98-107); GLOMERULAR FILTRATION RATE 112 ML/MIN (>89); TOTAL BILIRUBIN ADULT 0.4 MG/DL (0.2-1.0)
[2017-05-20 14:54] LABS: SODIUM (NA) 156 MEQ/L (136-145)
[2017-05-20 14:55] LABS: POTASSIUM 2.7 MEQ/L (3.5-5.1)
[2017-05-20] MEDS ORDERED: DEXT 5%-NACL 0.45% 1000 ML INJ 1,000 ML IV SCH (15:00)
--- NOTE | 2017-05-20 15:23 | HHI.NSPN ---
History Chief Complaint: Unable to obtain due to patient's clinical condition. Interval History 05/19: The patient is a 61-year-old female previously consult on by the undersigned on 04/30/17 after she presented to the emergency room after a fall in the facility at which she resides. The patient has a history of schizoaffective disorder, resides in a correction. Previous history of CVA. Also history of seizure disorder. She was noted to have a left frontotemporal contusion with acute subdural hematoma with approximately 7 mm midline shift. The family was initially available for decision making. Conservative treatment was continued. Follow-up CT scan imaging revealed gradual improvement in the parenchymal hemorrhage and some initial improvement in the subdural hematoma. Between May 06 and May 07 discussions with family her palliative care indicated that the patient's brother desired transfer back to the custodial facility with transitioned to hospice care. Given the stable nature of the subdural hematoma and improving contusion, associated medical disorders including acute thrombocytopenia, and significant underlying cognitive disorder , as well as the reported decision of the family to avoid any invasive treatment or surgical intervention, no further neurosurgical intervention was planned as of 05/07/2017. Review of the patient's subsequent notes from her previous hospitalization indicates that she underwent IVC filter placement for DVT on 05/16/2017, prior to discharge. The patient returns back to the emergency room on 05/19/2017 due to altered mental status and fever. Reportedly increasing confusion. No seizure activity reported. 05/20: When seen this afternoon the patient has here eyes closed but opens them to voice. It does appear from outside the room that the patient has intermittently had her eyes open. Prior to being seen the Hospitalist and Palliative Care were discussing the patient and the patient's sister has indicated that she will sign papers to make the patient DNR and move her to Hospice. System Review Comments Unable to obtain due to patient's clinical condition. Exam Results 05/18/17 05/18/17 05/19/17 05/19/17 05/20/17 05/20/17 06:00 18:00 06:00 18:00 06:00 18:00 Intake Total 1300 ml 1608.5 ml 410 ml Output Total 3200 ml 700 ml Balance -1900 ml 1608.5 ml -290 ml Intake Oral 0 ml 0 ml IV Total 1300 ml 1608.5 ml 410 ml Output Urine Total 3200 ml 700 ml # Voids 0 # Bowel Movements 1 2 Vital Signs Date Time Temp Pulse Resp B/P (MAP) Pulse Ox O2 Delivery O2 Flow Rate FiO2 05/20/17 11:40 100.3 88 19 112/55 (74) 95 05/20/17 08:00 99.6 81 19 111/56 (74) 95 05/20/17 00:34 96.9 88 16 110/57 (74) 94 05/19/17 20:52 96.6 84 16 118/64 (82) 96 05/19/17 13:59 05/19/17 11:22 99.1 104 24 128/75 (92) 95 Nasal Cannula 2.00 05/19/17 10:57 99.1 107 159/79 (105) 98 Room Air 05/19/17 10:09 100.9 115 24 171/95 (120) 95 Nasal Cannula 3.00 05/19/17 10:07 100.9 05/19/17 09:53 119 24 163/106 (125) 97 Nasal Cannula 3.00 05/19/17 09:52 97 Nasal Cannula 3.00 05/19/17 09:52 97 Nasal Cannula 3.00 05/19/17 09:32 24 95 Nasal Cannula 3.00 05/19/17 09:32 123 25 163/106 (125) 95 Nasal Cannula 3.00 05/19/17 09:29 123 24 163/106 (125) 95 Physical Examination GENERAL: Patient drowsy but awakens to voice. No apparent distress. HEENT: Normocephalic, atraumatic. PERRLA 2 mm brisk, appears to track. MUSCULOSKELETAL: Questionable trace movement right hand otherwise no other movement of extremities. Extremities appear to be TTP. NEUROLOGICAL: Drowsy but opens eyes to voice. It does appear from outside the room that the patient intermittently opens her eyes spontaneously prior to being seen. Groans with pain to noxious stimulation, facial grimacing. It does appear that the patient had a very faint attempt to squeeze this practitioner's hand to command with her right hand and attempt to give a thumbs up. Otherwise there was no motor response to local noxious stimulation. Lab, Micro, Other Results Recent Impressions Abdomen/Pelvis CT 05/19/17 1114 Signed Impressions: Service Date/Time: Friday, May 19, 2017 11:13 - CONCLUSION: 1. There is a pleural-based mass of the left lung base and a questionable retroperitoneal mass that involves the left ureteropelvic junction region of concern for neoplasm/malignancy. 2. Constipation. No obstruction or acute inflammatory changes seen in the gastrointestinal tract. 3. Body wall edema/anasarca. 4. Chronic pancreatitis. No evidence of acute pancreatitis. 5. Small fat containing left inguinal hernia. Ernesto Parham MD Head CT 05/19/17 0933 Signed Impressions: Service Date/Time: Friday, May 19, 2017 11:08 - CONCLUSION: 1. Subacute left temporal, parietal and frontal lobe subdural hematoma and a fairly broad area of left temporal lobe cerebral edema and developing encephalomalacia with approximately 4 mm of rightward midline shift. The subdural component is slightly larger than before but I don't see any acute blood products or other evidence of recent or active bleeding. The previously seen parenchymal hemorrhage of the left temporal lobe has almost completely resolved. 2. Decreasing intraventricular blood, now trace. Moderate ventriculomegaly not significantly changed. 3. Subacute appearing blood seen in the sphenoid sinuses and would be of concern for a nondisplaced skull base fracture. Ernesto Parham MD Chest X-Ray 05/19/1733 Signed Impressions: Service Date/Time: Friday, May 19, 2017 09:39 - CONCLUSION: No evidence of acute cardiopulmonary disease. Ernesto Parham MD Laboratory Tests Test 05/19/17 09:40 05/19/17 09:50 05/19/17 12:44 05/19/17 13:50 White Blood Count 16.2 TH/MM3 Red Blood Count 3.76 MIL/MM3 Hemoglobin 11.5 GM/DL Hematocrit 35.7 % Mean Corpuscular Volume 94.8 FL Mean Corpuscular Hemoglobin 30.5 PG Mean Corpuscular Hemoglobin Concent 32.2 % Red Cell Distribution Width 15.6 % Platelet Count 484 TH/MM3 Mean Platelet Volume 7.5 FL Neutrophils (%) (Auto) 73.9 % Lymphocytes (%) (Auto) 8.4 % Monocytes (%) (Auto) 15.3 % Eosinophils (%) (Auto) 1.8 % Basophils (%) (Auto) 0.6 % Neutrophils # (Auto) 11.9 TH/MM3 Lymphocytes # (Auto) 1.4 TH/MM3 Monocytes # (Auto) 2.5 TH/MM3 Eosinophils # (Auto) 0.3 TH/MM3 Basophils # (Auto) 0.1 TH/MM3 CBC Comment AUTO DIFF Differential Total Cells Counted 100 Neutrophils % (Manual) 66 % Band Neutrophils % 11 % Lymphocytes % 9 % Monocytes % 8 % Eosinophils % 2 % Neutrophils # (Manual) 13.1 TH/MM3 Metamyelocytes 3 % Myelocytes 1 % Differential Comment FINAL DIFF MANUAL Platelet Estimate HIGH Platelet Morphology Comment NORMAL Prothrombin Time 13.0 SEC Prothromb Time International Ratio 1.2 RATIO Activated Partial Thromboplast Time 29.4 SEC Blood Urea Nitrogen 49 MG/DL Creatinine 1.51 MG/DL Random Glucose 131 MG/DL Total Protein 7.6 GM/DL Albumin 2.1 GM/DL Calcium Level 8.3 MG/DL Alkaline Phosphatase 192 U/L Aspartate Amino Transf (AST/SGOT) 383 U/L Alanine Aminotransferase (ALT/SGPT) 190 U/L Total Bilirubin 0.6 MG/DL Sodium Level 147 MEQ/L Potassium Level 4.1 MEQ/L Chloride Level 114 MEQ/L Carbon Dioxide Level 21.6 MEQ/L Anion Gap 11 MEQ/L Estimat Glomerular Filtration Rate 35 ML/MIN Lactic Acid Level 2.2 mmol/L 1.3 mmol/L Total Creatine Kinase 87 U/L Troponin I LESS THAN 0.02 NG/ML B-Type Natriuretic Peptide 43 PG/ML Thyroid Stimulating Hormone 3rd Gen 3.080 uIU/ML Urine Color DARK-YELLOW Urine Turbidity CLEAR Urine pH 6.0 Urine Specific [place] 1.018 Urine Protein TRACE mg/dL Urine Glucose (UA) TRACE mg/dL Urine Ketones NEG mg/dL Urine Occult Blood NEG Urine Nitrite NEG Urine Bilirubin NEG Urine Urobilinogen 2.0 MG/DL Urine Leukocyte Esterase NEG Urine RBC 0-3 /hpf Urine Bacteria FEW /hpf Microscopic Urinalysis Comment CULT NOT INDICATED Phenytoin (Dilantin) Level 3.4 MCG/ML Valproic Acid (Depakene) Level 42 MCG/ML Test 05/20/17 11:25 05/20/17 13:00 White Blood Count 7.4 TH/MM3 Red Blood Count 2.78 MIL/MM3 Hemoglobin 8.6 GM/DL Hematocrit 26.5 % Mean Corpuscular Volume 95.4 FL Mean Corpuscular Hemoglobin 31.0 PG Mean Corpuscular Hemoglobin Concent 32.4 % Red Cell Distribution Width 15.6 % Platelet Count 275 TH/MM3 Mean Platelet Volume 7.5 FL Neutrophils (%) (Auto) 71.7 % Lymphocytes (%) (Auto) 10.7 % Monocytes (%) (Auto) 13.5 % Eosinophils (%) (Auto) 3.3 % Basophils (%) (Auto) 0.8 % Neutrophils # (Auto) 5.3 TH/MM3 Lymphocytes # (Auto) 0.8 TH/MM3 Monocytes # (Auto) 1.0 TH/MM3 Eosinophils # (Auto) 0.2 TH/MM3 Basophils # (Auto) 0.1 TH/MM3 CBC Comment DIFF FINAL Differential Comment Blood Urea Nitrogen 26 MG/DL Creatinine 0.55 MG/DL Random Glucose 90 MG/DL Total Protein 5.7 GM/DL Albumin 1.6 GM/DL Calcium Level 7.9 MG/DL Alkaline Phosphatase 127 U/L Aspartate Amino Transf (AST/SGOT) 263 U/L Alanine Aminotransferase (ALT/SGPT) 126 U/L Total Bilirubin 0.4 MG/DL Sodium Level 156 MEQ/L Potassium Level 2.7 MEQ/L Chloride Level 122 MEQ/L Carbon Dioxide Level 23.9 MEQ/L Anion Gap 10 MEQ/L Estimat Glomerular Filtration Rate 112 ML/MIN Medical Decision Making Impression and Plan Impression: 1. Subacute to chronic residual left frontotemporal subdural hematoma was relatively mild local mass effect. Resolving left frontal parenchymal contusion. 2. Schizoaffective-bipolar disorder. 3. Recent DVT. Status post IVC filter placement. 4. Persistent fever with leukocytosis. No definite infectious source noted on recent admission. 5. CT scan of the abdomen and pelvis on 05/19/17 with possible neoplastic disease in the right long and retroperitoneum. Patient seen by oncology with recommendations for conservative treatment, hospice care. Oncology feels that there is no indication for biopsy of the lesions identified on CT abdomen/pelvis. Patient remains nonverbal except for groans, questionable attempt to squeeze and give thumbs up with right hand, if so extremely weak, otherwise no movement. Reviewed labs for today. Resolution of leukocytosis. Almost a 3 gram drop in Hgb. Hypernatremic yesterday, CMP in process for today. Plan: Discussed plan of care with Hospitalist. Primary management per Hospitalist. Concur with Palliative Care/Hospice. No indication for neurosurgical intervention at this time. Neurosurgery will sign off at this time. If we may be of further assistance please consult the service as needed. Thank you for allowing us to participate in your patient's care. Estuardo Arellano May 20, 2017 15:23
[2017-05-20] MEDS: POTASSIUM CHLOR 20 MEQ PREMIX 100 ML IV SCH ×2 (15:30→18:41)
[2017-05-20 16:34] VITALS: TEMP 100.2
[2017-05-20 19:15] LABS: BICARBONATE 25.1 MEQ/L (21.0-32.0)
[2017-05-20 19:21] LABS: POTASSIUM 2.9 MEQ/L (3.5-5.1)
[2017-05-20] MEDS: ATORVASTATIN 80 MG TAB PO SCH (20:19)
[2017-05-21 16:15] LABS: LEVETIRACETAM 28.1 mcg/mL (12.0 - 46.0)
[2017-05-22] MEDS ORDERED: PHARMACY ORDERED LAB ONE (10:45)
== END 2017-05-20 20:40 | disposition hospice, inpatient (51) | DRG 683 ==
LOC: NEPC 09:09 → NEDA 12:32 → N07A 14:10
PROVIDERS: ADMIT Family Medicine; ATTEND Family Medicine
DX: N17.9 Acute kidney failure, unspecified (principal); E87.0 Hyperosmolality and hypernatremia; E87.2 Acidosis; I10 Essential (primary) hypertension; R50.9 Fever, unspecified; K58.9 Irritable bowel syndrome, unspecified; H91.90 Unspecified hearing loss, unspecified ear; F41.9 Anxiety disorder, unspecified; M19.90 Unspecified osteoarthritis, unspecified site; K21.9 Gastro-esophageal reflux disease without esophagitis; I25.10 Atherosclerotic heart disease of native coronary artery without angina pectoris; R00.0 Tachycardia, unspecified; F31.9 Bipolar disorder, unspecified; G40.909 Epilepsy, unspecified, not intractable, without status epilepticus; E86.0 Dehydration; F25.9 Schizoaffective disorder, unspecified; N13.9 Obstructive and reflux uropathy, unspecified; Z66 Do not resuscitate; I65.29 Occlusion and stenosis of unspecified carotid artery; R19.00 Intra-abdominal and pelvic swelling, mass and lump, unspecified site; R91.8 Other nonspecific abnormal finding of lung field; D72.829 Elevated white blood cell count, unspecified; Z91.81 History of falling; Z95.828 Presence of other vascular implants and grafts; Z86.73 Personal history of transient ischemic attack (TIA), and cerebral infarction without residual deficits; Z86.718 Personal history of other venous thrombosis and embolism; S06.5X9D Traumatic subdural hemorrhage with loss of consciousness of unspecified duration, subsequent encounter
CPT/HCPCS: 51702; 70450; 71010; 74176; 80048; 80053; 80164; 80177; 80185; 80201; 81001; 82550; 82565; 82948; 83605; 83880; 84443; 84484; 85007; 85025; 85027; 85610; 85730; 87040; 93005; 96365; 96367; J1953; J2543; J3370; J3480; J7030; J7050